=== PATIENT | female | born 1955 | race Two or more races ===

== ENCOUNTER 2020-05-05 08:46 | Outpatient (REF) | payer MEDICARE, MEDICAID, SELFPAY ==
--- NOTE | 2020-05-05 09:00 | MR_ITS ---
EXAMINATION: MR CERVICAL SPINE WITHOUT CONTRAST CLINICAL INFORMATION: Cervical radiculopathy. Spasm. COMPARISON: Cervical spine radiographs 06/15/2019. Cervical spine MRI 09/25/2016. TECHNIQUE: MRI of the cervical spine was obtained using routine sequences without contrast. FINDINGS: Alignment is normal. Vertebral body heights are preserved. No acute bone marrow signal changes. There is slight loss of intervertebral disc height and T2 signal intensity at multiple levels related to disc degeneration. The cervicomedullary junction is normal. Limited visualization of the posterior fossa reveals no abnormal finding. The occipital condyles and lateral C1 masses are intact. Atlantodental joint is normal. C1-C2 articular facets are unremarkable. At C2-C3 the annular contour is normal. No canal stenosis. Asymmetric degenerative arthrosis causes mild left neuroforaminal encroachment. At C3-C4 there is a slightly bulging disc. No canal stenosis. Uncovertebral joint spurring and facet degenerative change causes mild bilateral neuroforaminal encroachment. At C4-C5 there is a slightly bulging disc. No canal stenosis. Uncovertebral joint spurring and facet degenerative change causes mild left neuroforaminal encroachment. At C5-C6 there is a slightly bulging disc. No canal stenosis. Uncovertebral joint spurring and facet degenerative change causes mild left neuroforaminal encroachment. At C6-C7 there is a right central protrusion causing indentation of the thecal sac and subtle distortion of the right ventral surface of the cervical cord. Moderate canal stenosis. No overt compression and no abnormal intramedullary signal changes. No substantial neuroforaminal encroachment. At C7-T1 the annular contour is normal. No canal or neuroforaminal compromise. Visualized soft tissues of the neck are normal. MR/MR cervical spine wo con IMPRESSION: A right central protrusion at C6-C7 has substantially increased in size when compared to prior imaging from 09/25/2016. It causes moderate canal stenosis and subtle distortion of the right ventrolateral surface of the cervical cord. No clear evidence of abnormal intramedullary signal changes to suggest edema or myelomalacia. There is mild neuroforaminal encroachment at multiple levels within the cervical spine as described above.
== END 2020-05-05 08:47 | disposition home or self-care (01) ==
LOC: HO.MRI 08:46
PROVIDERS: PCP Internal Medicine; Visit Provider Internal Medicine
DX: M54.12 Radiculopathy, cervical region (principal); M62.838 Other muscle spasm; M96.1 Postlaminectomy syndrome, not elsewhere classified
CPT/HCPCS: 72141

== ENCOUNTER 2020-06-15 10:18 | Outpatient (REF) | payer MEDICARE, MEDICAID, SELFPAY ==
[2020-06-15 11:11] LABS: MANUAL DIFF FLAG NO
[2020-06-15 11:29] LABS: Basophils Percent Auto 0.4 % (0-2); Eosinophils Absolute Auto 0.2 X10*3/uL (0.0-0.4); Eosinophils Percent Auto 2.6 % (0-4); Hematocrit 40.9 % (37-47); Hemoglobin 13.1 g/dl (12.0-16.0); Imm Gran Abs Auto 0.03 X10*3/uL (0.00-0.03); Imm Gran Pct Auto 0.4 % (0.0-0.4); Lymphocytes Absolute Auto 2.5 X10*3/uL (1.2-4.9); Lymphocytes Percent Auto 35.8 % (20-40); Mean Corpuscular Hemoglobin 29.4 pg (27.0-33.0); Mean Corpuscular Volume 91.7 fL (80-98); Mean Platelet Volume 11.8 fL (9.4-12.3); Monocytes Absolute Auto 0.6 X10*3/uL (0.1-1.2); Neutrophils Absolute Auto 3.7 X10*3/uL (2.0-8.3); Neutrophils Percent Auto 52.8 % (45-73); Platelet Count 198 X10*3/uL (160-400); Red Blood Count 4.46 X10*6/uL (4.20-5.50); Red Cell Distribution Width 13.3 % (11.0-16.0)
[2020-06-15 11:32] LABS: Anion Gap 13 (12-20); Blood Urea Nitrogen 13 mg/dL (9-16); Calcium 9.7 mg/dL (8.4-10.2); Carbon Dioxide 32 mmol/L (22-29); Chloride 102 mmol/L (96-108); Cholesterol 265 mg/dL; Estimated Glomerular Filt Rate > 60; Glucose Fasting 125 mg/dL (60-99); HDL Cholesterol 52 mg/dL; LDL Cholesterol Calculated 169 mg/dl; Potassium 5.2 mmol/l (3.3-5.1); Sodium 142 mmol/L (135-145); Triglycerides 221 mg/dL
[2020-06-15 11:34] LABS: Alanine Aminotransferase 71 U/L (0-31); Albumin Level 4.1 g/dL (3.5-5.0); Alkaline Phosphatase 174 U/L (39-117); Aspartate Amino Transferase 65 U/L (5-31); Bilirubin Direct 0.2 mg/dL (0.0-0.5); Bilirubin Total 0.2 mg/dL (0.0-1.0); Total Protein 7.6 g/dL (6.5-8.0)
[2020-06-15 11:36] LABS: Estimated Average Glucose 174 mg/dL; Hemoglobin A1c % 7.7 %
[2020-06-15 12:18] LABS: Creatinine Urine 108.37 mg/dL; Microalbum/Creatinine Ratio Ur 4.6 ug/mg cr
== END 2020-06-15 10:19 | disposition home or self-care (01) ==
LOC: HO.LAB 10:18
PROVIDERS: Internal Medicine; PCP Psychiatry & Neurology Neurology; Referring Provider Psychiatry & Neurology Neurology; Visit Provider Internal Medicine
DX: I10 Essential (primary) hypertension (principal); K76.0 Fatty (change of) liver, not elsewhere classified; R74.8 Abnormal levels of other serum enzymes; M62.838 Other muscle spasm; M96.1 Postlaminectomy syndrome, not elsewhere classified; M47.894 Other spondylosis, thoracic region; M54.12 Radiculopathy, cervical region; K21.9 Gastro-esophageal reflux disease without esophagitis; R94.5 Abnormal results of liver function studies; E13.9 Other specified diabetes mellitus without complications
CPT/HCPCS: 36415; 80048; 80061; 80076; 82043; 83036; 85025

== ENCOUNTER 2020-07-15 08:28 | Outpatient (REF) | payer MEDICARE, MEDICAID, SELFPAY ==
[2020-07-15 11:07] LABS: MANUAL DIFF FLAG NO
[2020-07-15 11:14] LABS: Basophils Percent Auto 0.3 % (0-2); Eosinophils Absolute Auto 0.2 X10*3/uL (0.0-0.4); Eosinophils Percent Auto 1.8 % (0-4); Hematocrit 43.1 % (37-47); Hemoglobin 13.7 g/dl (12.0-16.0); Imm Gran Abs Auto 0.03 X10*3/uL (0.00-0.03); Imm Gran Pct Auto 0.3 % (0.0-0.4); Lymphocytes Absolute Auto 2.7 X10*3/uL (1.2-4.9); Lymphocytes Percent Auto 27.9 % (20-40); Mean Corpuscular HGB Conc 31.8 g/dl (31.0-35.0); Mean Corpuscular Hemoglobin 29.3 pg (27.0-33.0); Mean Corpuscular Volume 92.3 fL (80-98); Mean Platelet Volume 12.5 fL (9.4-12.3); Monocytes Absolute Auto 0.7 X10*3/uL (0.1-1.2); Monocytes Percent Auto 7.4 % (2-11); Neutrophils Absolute Auto 6.1 X10*3/uL (2.0-8.3); Neutrophils Percent Auto 62.3 % (45-73); Platelet Count 177 X10*3/uL (160-400); Red Blood Count 4.67 X10*6/uL (4.20-5.50); Red Cell Distribution Width 13.7 % (11.0-16.0); White Blood Count 9.8 X10*3/uL (4.8-10.8)
[2020-07-15 11:44] LABS: Anion Gap 13 (12-20); Blood Urea Nitrogen 17 mg/dL (9-16); Calcium 9.4 mg/dL (8.4-10.2); Carbon Dioxide 32 mmol/L (22-29); Chloride 101 mmol/L (96-108); Estimated Glomerular Filt Rate 52; Glucose Random 127 mg/dL (60-115); Potassium 4.8 mmol/l (3.3-5.1); Sodium 141 mmol/L (135-145)
== END 2020-07-15 08:29 | disposition home or self-care (01) ==
LOC: HO.HMGCLDS 08:28
PROVIDERS: PCP Internal Medicine; Visit Provider Internal Medicine
DX: Z01.818 Encounter for other preprocedural examination (principal); M50.20 Other cervical disc displacement, unspecified cervical region; I10 Essential (primary) hypertension; E13.9 Other specified diabetes mellitus without complications
CPT/HCPCS: 36415; 80048; 85025

== ENCOUNTER 2020-10-11 13:49 | Outpatient (REF) | payer MEDICARE, MEDICAID, SELFPAY ==
[2020-10-11 15:19] LABS: Alanine Aminotransferase 41 U/L (0-31); Albumin Level 4.2 g/dL (3.5-5.0); Alkaline Phosphatase 210 U/L (39-117); Aspartate Amino Transferase 48 U/L (5-31); Bilirubin Direct 0.2 mg/dL (0.0-0.5); Bilirubin Total 0.6 mg/dL (0.0-1.0); Total Protein 7.6 g/dL (6.5-8.0)
== END 2020-10-11 13:50 | disposition home or self-care (01) ==
LOC: HO.LAB 13:49
PROVIDERS: PCP Internal Medicine; Visit Provider Internal Medicine
DX: R74.8 Abnormal levels of other serum enzymes (principal)
CPT/HCPCS: 36415; 80076

== ENCOUNTER 2020-11-07 08:56 | Day surgery (SDC) | payer MEDICARE, MEDICAID, SELFPAY ==
[2020-11-02 13:55] VITALS: BMI 29.5
--- NOTE | 2020-11-03 13:42 | P.CONAN_ITS ---
Documented by User: Anne Esquivel 11/03/20 13:44 HPI - Anesthesia Eval Consult details Narrative: 64yo F for Colonoscopy chronic opioids - fentanyl patch and prn oxy PMFSH Active Problems Active Problems: All Active Problems (Updated 11/02/20 @ 13:51 by Angie Hui) Elevated blood pressure reading (Acute) Pre-op evaluation (Acute) Right otitis media (Acute) Pain management (Acute) Narcotic dependence (Acute) Herniated nucleus pulposus, cervical (Acute) Hypertension, essential (Acute) Muscle spasm (Acute) Failed back syndrome (Acute) DJD (degenerative joint disease) of thoracic spine (Acute) Radiculitis of right cervical region (Acute) Chronic GERD (Acute) LFTs abnormal (Acute) Diabetes 1.5, managed as type 1 (Acute) Past Medical History Medical History Chronic GERD Diabetes 1.5, 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 Mother Stomach cancer Surgical History Surgical History History of colonoscopy History of esophagogastroduodenoscopy History of esophagogastroduodenoscopy History of hysterectomy with oophorectomy History of lumbar surgery Hx of cholecystectomy Social History Social History Alcohol intake: never Smoking Status: Never smoker Advance Directives Information Provided: No Meds Allergies Allergy/AdvReac Type Severity Reaction Status Date / Time duloxetine [From Cymbalta] Allergy Intermediate Gastrointestinal Verified 11/02/20 13:43 Upset gabapentin Allergy Intermediate Gastrointestinal Verified 11/02/20 13:43 Upset milnacipran [From Savella] Allergy Intermediate Gastrointestinal Verified 11/02/20 13:43 Upset naloxegol [Movantik] Allergy Intermediate Gastrointestinal Verified 11/02/20 13:44 Upset pregabalin [From Lyrica] Allergy Intermediate Gastrointestinal Verified 11/02/20 13:43 Upset Home Medications Medication Instructions Recorded Confirmed Last Taken Type albuterol sulfate 90 mcg/actuation 1 - 2 puff PO Q4-6H PRN 04/29/20 11/02/20 Unknown History aerosol inhaler latanoprost 0.005 % eye drops 1 drp OPHTHALMIC (EYE) BEDTIME 04/29/20 11/02/20 Unknown History omeprazole 20 mg capsule,delayed 20 mg PO DAILY 04/29/20 11/02/20 11/07/20 Hist ory release pen needle, diabetic 31 gauge x #50 ea 04/29/20 10/11/20 Unknown History 09/20 Exam Exam Date and Time: November 03, 2020 1342 Height,Weight and Vital Signs: Height 5 ft 3 in Weight 75.75 kg Pertinent Lab Results Pertinent Lab Results: Laboratory Tests 07/15/20 07/15/20 08:33 08:33 WBC 9.8 Hgb 13.7 Hct 43.1 Plt Count 177 Sodium 141 Potassium 4.8 Chloride 101 Carbon Dioxide 32 H BUN 17 H Creatinine 1.06 Assessment and Plan Assessment Anesthesia Assessment: Chart Reviewed Documented by User: Feliz Roth 11/07/20 09:49 [facility] Past Medical History Medical History Chronic GERD Diabetes 1.5, 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 Mother Stomach cancer Surgical History Surgical History History of colonoscopy History of esophagogastroduodenoscopy History of esophagogastroduodenoscopy History of hysterectomy with oophorectomy History of lumbar surgery Hx of cholecystectomy Social History Social History Alcohol intake: never Smoking Status: Never smoker Advance Directives Information Provided: No Meds Allergies Allergy/AdvReac Type Severity Reaction Status Date / Time duloxetine [From Cymbalta] Allergy Intermediate Gastrointestinal Verified 11/02/20 13:43 Upset gabapentin Allergy Intermediate Gastrointestinal Verified 11/02/20 13:43 Upset milnacipran [From Savella] Allergy Intermediate Gastrointestinal Verified 11/02/20 13:43 Upset naloxegol [Movantik] Allergy Intermediate Gastrointestinal Verified 11/02/20 13:44 Upset pregabalin [From Lyrica] Allergy Intermediate Gastrointestinal Verified 11/02/20 13:43 Upset Home Medications Medication Instructions Recorded Confirmed Last Taken Type albuterol sulfate 90 mcg/actuation 1 - 2 puff PO Q4-6H PRN 04/29/20 11/02/20 Unknown History aerosol inhaler latanoprost 0.005 % eye drops 1 drp OPHTHALMIC (EYE) BEDTIME 04/29/20 11/02/20 Unknown History omeprazole 20 mg capsule,delayed 20 mg PO DAILY 04/29/20 11/02/20 11/07/20 History release pen needle, diabetic 31 gauge x #50 ea 04/29/20 10/11/20 Unknown History 09/20 Exam Airway Mallampati Class: II TM Dist: >3cm Neck ROM: Full Loose/Missing/Broken Teeth: No Heart: [id number] Lungs: cta b/l Assessment and Plan Assessment Anesthesia Assessment: Anesthesia Plan Discussed, PAT Visit and Chart Reviewed Final Anesthetic Review NPO: Yes ASA Class: III Final Preanesthetic Review: No Changes in Pt Med Stat, Meds/Allgs Chart Reviewed, Consent Obtained/Reviewed and Anes Risks/Benef Reviewed Patient Risk: Intermediate Procedure Risk: Low Assessment/Block/Sedation in SS: Assess/Block/Sedation-SS Anesthetic Plan Anesthetic Plan: MAC: and Agree w/ Assess. and Plan Disposition: Standard PACU
[2020-11-07 09:07] VITALS: BP 147/65; PULSE 92; RESP 18; TEMP 36.6; O2SAT 96
[2020-11-07 09:14] LABS: Glucose, Whole Blood 147 mg/dL (60-115)
[2020-11-07] MEDS: Lactated Ringers 1,000 ML 100 ML IVCONT (09:27)
[2020-11-07] MEDS: Sodium Phosphate,Mono-Dibasic 133 ML ENEMA PR ×2 (09:27→09:40)
--- NOTE | 2020-11-07 09:47 | PC.NURSE ---
liquid yellow after 2 fleets pt has a fentayl patch back right shoulder
[2020-11-07 11:18] VITALS: BP 91/52; PULSE 91; RESP 16; TEMP 36.8; O2SAT 96
--- NOTE | 2020-11-07 11:19 | PM.OP ---
Brief Operative Note Date of Service: 11/07/20 Pre-op diagnosis: Screening Post-op diagnosis: other (Colon polyp, Poor prep) Procedure: Colonoscopy to the cecum with biopsy and removal of polyp Surgeon: Tommy Roberts Anesthesia: MAC Estimated blood loss (mL): 3.0 Pathology: other (A. Cecal polyp) Condition: stable Disposition: PACU
[2020-11-07 11:33] VITALS: BP 113/57; PULSE 86; RESP 16; TEMP 36.8; O2SAT 96
--- NOTE | 2020-11-07 14:05 | OP_ITS ---
SURGEON: Tommy Roberts MD INDICATIONS: The patient presents for evaluation of colorectal cancer screening. Full consent has been obtained from her for this, including risks of bleeding and perforation. PREOPERATIVE DIAGNOSIS: Colorectal cancer screening. POSTOPERATIVE DIAGNOSIS: PROCEDURE PERFORMED: Colonoscopy to the cecum with biopsy and removal of polyp. ESTIMATED BLOOD LOSS: COMPLICATIONS: ANESTHESIA: Monitored anesthesia care. ASSISTANTS: SPECIMENS: POSTOPERATIVE DIAGNOSES: Colorectal cancer screening, small colon polyp, diverticulosis, internal hemorrhoids, and very limited exam due to poor prep. DESCRIPTION OF PROCEDURE: The patient was placed in the left lateral decubitus position. The digital rectal exam revealed no abnormalities other than some external hemorrhoids. The Olympus video pediatric colonoscope was entered into the rectum and advanced easily to the cecum. In the cecum, visualization was limited due to some poor prep with liquid and some solid stool. I did visualize a single approximately 4 mm polyp, which was biopsied and completely removed with cold biopsy forceps. I did not visualize any other abnormalities in the cecum, although again this was quite limited visualization. The scope was then slowly withdrawn assessing all mucosal surfaces carefully. Preparation throughout the colon was very limited as well due to retained liquid stool. I did not visualize any sign of polyps, colitis, nor angiodysplasia. Some sigmoid diverticula were noted. In the rectum, scope was retroflexed visualizing some small internal hemorrhoids, but no other pathology. The rectal mucosa was visualized and appeared normal. Scope was straightened out and withdrawn from the patient. She tolerated the procedure well and was returned to the recovery area in stable condition. IMPRESSION: 1. Small colon polyp, status post biopsy and removal. 2. Sigmoid diverticulosis. 3. Internal and external hemorrhoids. 4. Limited visualization due to poor prep. PLAN: The results of biopsy will be checked. I will discuss with her as to whether or not she would like to undergo a repeat colonoscopy with a better clean out for better inspection. If the polyp is a tubular adenoma, I would definitely recommend that. This has been discussed with her daughter. MD DES Rodriguez/TED / [id number]
== END 2020-11-07 12:08 | disposition home or self-care (01) ==
PROVIDERS: PCP Internal Medicine; Visit Provider Internal Medicine
PROC: 0DJD8ZZ Inspection of Lower Intestinal Tract, Via Natural or Artificial Opening Endoscopic (ICD-10-PCS; CPT 45378; principal; 2020-11-07 10:00)
DX: Z12.11 Encounter for screening for malignant neoplasm of colon (principal); D12.0 Benign neoplasm of cecum; K57.30 Diverticulosis of large intestine without perforation or abscess without bleeding; K64.8 Other hemorrhoids; K21.9 Gastro-esophageal reflux disease without esophagitis; I10 Essential (primary) hypertension; E13.9 Other specified diabetes mellitus without complications; Z79.4 Long term (current) use of insulin
CPT/HCPCS: 45380; 82947; 88305

== ENCOUNTER 2020-12-16 11:13 | Outpatient (REF) | payer MEDICARE, MEDICAID, SELFPAY ==
[2020-12-16 13:13] LABS: Estimated Average Glucose 183 mg/dL
[2020-12-16 13:37] LABS: Alanine Aminotransferase 34 U/L (0-31); Albumin Level 4.2 g/dL (3.5-5.0); Alkaline Phosphatase 204 U/L (39-117); Anion Gap 11 (12-20); Aspartate Amino Transferase 46 U/L (5-31); Bilirubin Total 0.5 mg/dL (0.0-1.0); Blood Urea Nitrogen 21 mg/dL (9-16); Calcium 9.3 mg/dL (8.4-10.2); Carbon Dioxide 32 mmol/L (22-29); Chloride 103 mmol/L (96-108); Cholesterol 263 mg/dL; Estimated Glomerular Filt Rate 54; Glucose Fasting 106 mg/dL (60-99); HDL Cholesterol 50 mg/dL; LDL Cholesterol Calculated 182 mg/dl; Potassium 5.2 mmol/L (3.3-5.1); Sodium 141 mmol/L (135-145); Total Protein 7.4 g/dL (6.5-8.0); Triglycerides 159 mg/dL
== END 2020-12-16 11:14 | disposition home or self-care (01) ==
LOC: HO.LAB 11:13
PROVIDERS: PCP Internal Medicine; Visit Provider Internal Medicine
DX: I10 Essential (primary) hypertension (principal); E13.9 Other specified diabetes mellitus without complications; R94.5 Abnormal results of liver function studies; Z79.4 Long term (current) use of insulin
CPT/HCPCS: 36415; 80053; 80061; 83036

== ENCOUNTER 2020-12-20 13:30 | Outpatient (REF) | payer MEDICARE, MEDICAID, SELFPAY ==
[2020-12-20 17:40] LABS: Influenza A PCR NEGATIVE (Negative); Influenza B PCR NEGATIVE (Negative); Resp Syncy Virus RNA Qual PCR NEGATIVE (Negative); SARS COV2 PCR INHOUSE NEGATIVE (Negative)
== END 2020-12-20 13:31 | disposition home or self-care (01) ==
LOC: HO.LAB 13:30
PROVIDERS: Visit Provider Nurse Practitioner Family
DX: Z20.822 Contact with and (suspected) exposure to COVID-19 (principal); J01.00 Acute maxillary sinusitis, unspecified
CPT/HCPCS: 0241U; 36415

== ENCOUNTER 2021-01-17 15:10 | Outpatient (REF) | payer MEDICARE, MEDICAID, SELFPAY ==
--- NOTE | ~2021-01-17 | XR_ITS ---
EXAMINATION: XR BILATERAL HIPS WITH AP PELVIS CLINICAL INFORMATION: Pain in right hip. COMPARISON: None TECHNIQUE: AP view of the pelvis and single views of each hip were obtained. FINDINGS: The bones and soft tissues are normal. No fracture. Sacroiliac and hip joints are normal. Pubic symphysis is normal. No abnormal soft tissue calcifications. Incidental finding of pedicular screws at L3 L4 L5 vertebra with interconnecting rods for lower spinal spine fusion is noted. XR/XR hips MAT min 3V IMPRESSION: Normal pelvis and hips.
== END 2021-01-17 15:11 | disposition home or self-care (01) ==
LOC: HO.HMGCX 15:10
PROVIDERS: PCP Internal Medicine; Visit Provider Internal Medicine
DX: M25.551 Pain in right hip (principal)
CPT/HCPCS: 73522

== ENCOUNTER 2021-01-23 07:35 | Outpatient (REF) | payer MEDICARE, MEDICAID, SELFPAY ==
--- NOTE | ~2021-01-23 | MR_ITS ---
MR LUMBAR SPINE WITHOUT CONTRAST CLINICAL INFORMATION: Postlaminectomy syndrome. COMPARISON: Images from a lumbar spine MRI dated 02/27/2013 are not available at the time of dictation. TECHNIQUE: MRI of the lumbar spine was obtained using routine sequences without contrast. FINDINGS: There is transitional anatomy. For the purposes of this report, there are 5 nonrib-bearing lumbar-type vertebral bodies and S1 is lumbarized, sharing a rudimentary disc with S2. There are chronic postoperative changes following laminectomy and posterior instrumented fusion at the L4-S1 levels. There is likely solid interbody arthrodesis at L4-L5 and L5-S1. The vertebral body heights are maintained. There is grade 1 degenerative anterolisthesis at the L3-L4 junctional level. There is no bone marrow edema. There are no acute fractures. The conus terminates at the T12-L1 level. L1-L2: Shallow left paracentral disc protrusion mildly indents the ventral thecal sac. No significant central canal stenosis nor significant foraminal stenosis. L2-L3: There is a shallow left paracentral disc protrusion that results in mass effect on the traversing left L3 nerve root within the left subarticular zone. The current annular disc bulge and mild bilateral facet arthropathy. No central canal stenosis. No foraminal stenosis. L3-L4: There is grade 1 degenerative anterolisthesis. Uncovered disc with a superimposed diffuse annular disc bulge. Severe bilateral facet arthropathy and ligamentum flavum thickening. On is in concert result in moderate central canal stenosis, bilateral subarticular zone stenosis with mass effect on the traversing L4 nerve roots bilaterally, and a left lateral disc osteophyte protrusion results in mass effect on the extraforaminal left L3 nerve root. L4-L5: Postoperative changes as discussed above. Narrowing of the subarticular zones bilaterally without traversing nerve root compression. No central canal stenosis and no foraminal stenosis. L5-S1: Postoperative changes as discussed above. Diffuse osteophytic ridging. Epidural lipomatosis mildly narrows the central canal. There is mild bilateral foraminal encroachment. MR/MR lumbar spine wo con IMPRESSION: - Transitional anatomy. S1 is lumbarized sharing a rudimentary disc with S2 and there are 5 nonrib-bearing lumbar-type vertebral bodies. - Chronic postoperative changes following laminectomy and posterior instrumented fusion at the L4-S1 levels. - At the junctional L3-L4 level, grade 1 degenerative anterolisthesis and multifactorial degenerative changes result in moderate central canal stenosis, bilateral subarticular zone stenosis with mass effect on the traversing L4 nerve roots bilaterally, and a left lateral disc osteophyte protrusion results in mass effect on the extraforaminal left L3 nerve root. - At L2-L3, a shallow left paracentral disc protrusion results in mass effect on the traversing left L3 nerve root within the left subarticular zone.
== END 2021-01-23 07:36 | disposition home or self-care (01) ==
LOC: HO.MRI 07:35
PROVIDERS: PCP Internal Medicine; Visit Provider Internal Medicine
DX: M54.17 Radiculopathy, lumbosacral region (principal); M96.1 Postlaminectomy syndrome, not elsewhere classified; M25.551 Pain in right hip
CPT/HCPCS: 72148

== ENCOUNTER → 2021-03-27 14:09 | Outpatient (BNVA) | payer MEDICARE, MEDICAID, SELFPAY | PROVIDERS: PCP Internal Medicine; Referring Provider Internal Medicine; Visit Provider Internal Medicine | DX: I10 Essential (primary) hypertension (principal); E78.5 Hyperlipidemia, unspecified; E10.9 Type 1 diabetes mellitus without complications; Z88.6 Allergy status to analgesic agent; Z88.8 Allergy status to other drugs, medicaments and biological substances; Z79.4 Long term (current) use of insulin | CPT/HCPCS: 93005; 99202 ==

== ENCOUNTER 2021-03-31 12:03 | Outpatient (REF) | payer MEDICARE, MEDICAID, SELFPAY ==
[2021-03-31 13:33] LABS: Alanine Aminotransferase 19 U/L (0-31); Albumin Level 4.1 g/dL (3.5-5.0); Alkaline Phosphatase 135 U/L (39-117); Anion Gap 12 (12-20); Aspartate Amino Transferase 21 U/L (5-31); Bilirubin Total 0.5 mg/dL (0.0-1.0); Blood Urea Nitrogen 13 mg/dL (9-16); Calcium 9.8 mg/dL (8.4-10.2); Carbon Dioxide 29 mmol/L (22-29); Chloride 103 mmol/L (96-108); Estimated Glomerular Filt Rate 57; Glucose Random 125 mg/dL (60-115); Potassium 4.9 mmol/L (3.3-5.1); Sodium 139 mmol/L (135-145); Total Protein 7.4 g/dL (6.5-8.0)
[2021-03-31 14:30] LABS: Amphetamine Screen Urine Not Detected (Not Detect); Barbiturates, Urine Not Detected (Not Detect); Benzodiazepines Screen Urine Not Detected (Not Detect); Cannabinoid Screen Urine Not Detected (Not Detect); Cocaine Screen Urine Not Detected (Not Detect); Fentanyl, urine POSITIVE (Not Detect); Opiate Screen Urine Not Detected (Not Detect); Phencyclidine Screen Urine Not Detected (Not Detect)
[2021-04-04 08:47] LABS: Codeine, Ur Negative
[2021-04-04 08:48] LABS: Hydrocodone, Ur Negative; Morphine, Ur Negative
[2021-04-04 08:49] LABS: Hydromorphone, Ur Negative; Norhydrocodone, Ur Negative
== END 2021-03-31 12:04 | disposition home or self-care (01) ==
LOC: HO.LAB 12:03
PROVIDERS: PCP Internal Medicine; Visit Provider Internal Medicine
DX: F11.20 Opioid dependence, uncomplicated (principal); E13.9 Other specified diabetes mellitus without complications; E78.9 Disorder of lipoprotein metabolism, unspecified; I10 Essential (primary) hypertension; M96.1 Postlaminectomy syndrome, not elsewhere classified; Z79.4 Long term (current) use of insulin
CPT/HCPCS: 80053; 80307; 80364; 80365

== ENCOUNTER 2021-08-15 10:05 | Outpatient (REF) | payer MEDICARE, MEDICAID, SELFPAY ==
[2021-08-15 11:32] LABS: Estimated Average Glucose 177 mg/dL; Hemoglobin A1c % 7.8 %
[2021-08-15 12:15] LABS: Alanine Aminotransferase 30 U/L (0-31); Albumin Level 4.1 g/dL (3.5-5.0); Alkaline Phosphatase 182 U/L (39-117); Anion Gap 13 (12-20); Aspartate Amino Transferase 30 U/L (5-31); Bilirubin Direct 0.2 mg/dL (0.0-0.5); Bilirubin Total 0.7 mg/dL (0.0-1.0); Blood Urea Nitrogen 14 mg/dL (9-16); Calcium 9.9 mg/dL (8.4-10.2); Carbon Dioxide 31 mmol/L (22-29); Chloride 102 mmol/L (96-108); Cholesterol 264 mg/dL; Estimated Glomerular Filt Rate > 60; Glucose Fasting 103 mg/dL (60-99); HDL Cholesterol 47 mg/dL; LDL Cholesterol Calculated 179 mg/dl; Sodium 141 mmol/L (135-145); Total Protein 7.7 g/dL (6.5-8.0); Triglycerides 190 mg/dL
[2021-08-15 12:16] LABS: Creatinine Urine 152.51 mg/dL; Microalbum/Creatinine Ratio Ur 3.2 ug/mg cr
== END 2021-08-15 10:06 | disposition home or self-care (01) ==
LOC: HO.LAB 10:05
PROVIDERS: PCP Internal Medicine; Visit Provider Internal Medicine
DX: E78.5 Hyperlipidemia, unspecified (principal); I10 Essential (primary) hypertension; E78.9 Disorder of lipoprotein metabolism, unspecified; M48.061 Spinal stenosis, lumbar region without neurogenic claudication; Z79.4 Long term (current) use of insulin
CPT/HCPCS: 36415; 80053; 80061; 80076; 82043; 82248; 83036

== ENCOUNTER 2021-10-11 13:46 | Outpatient (REF) | payer MEDICARE, MEDICAID, SELFPAY ==
[2021-10-11 14:36] LABS: Amphetamine Screen Urine Not Detected (Not Detect); Barbiturates, Urine Not Detected (Not Detect); Benzodiazepines Screen Urine Not Detected (Not Detect); Cannabinoid Screen Urine Not Detected (Not Detect); Cocaine Screen Urine Not Detected (Not Detect); Fentanyl, urine POSITIVE (Not Detect); Opiate Screen Urine Not Detected (Not Detect); Phencyclidine Screen Urine Not Detected (Not Detect)
== END 2021-10-11 13:47 | disposition home or self-care (01) ==
LOC: HO.LNP 13:46
PROVIDERS: Visit Provider Internal Medicine
DX: F11.20 Opioid dependence, uncomplicated (principal); R52 Pain, unspecified
CPT/HCPCS: 80307

== ENCOUNTER 2021-12-13 14:32 | Outpatient (REF) | payer MEDICARE, MEDICAID, SELFPAY ==
[2021-12-13 16:57] LABS: Alanine Aminotransferase 23 U/L (0-31); Albumin Level 4.4 g/dL (3.5-5.0); Alkaline Phosphatase 148 U/L (39-117); Anion Gap 13 (12-20); Aspartate Amino Transferase 21 U/L (5-31); Bilirubin Total 0.2 mg/dL (0.0-1.0); Blood Urea Nitrogen 20 mg/dL (9-16); Calcium 9.9 mg/dL (8.4-10.2); Carbon Dioxide 29 mmol/L (22-29); Chloride 104 mmol/L (96-108); Estimated Glomerular Filt Rate 41; Glucose Random 210 mg/dL (60-115); Potassium 4.7 mmol/L (3.3-5.1); Sodium 141 mmol/L (135-145)
[2021-12-13 17:53] LABS: Estimated Average Glucose 186 mg/dL; Hemoglobin A1c % 8.1 %
== END 2021-12-13 14:33 | disposition home or self-care (01) ==
LOC: HO.HMGCLDS 14:32
PROVIDERS: PCP Internal Medicine; Visit Provider Internal Medicine
DX: E78.5 Hyperlipidemia, unspecified (principal); E13.9 Other specified diabetes mellitus without complications; I10 Essential (primary) hypertension; R94.5 Abnormal results of liver function studies; Z79.4 Long term (current) use of insulin
CPT/HCPCS: 36415; 80053; 83036

== ENCOUNTER → 2022-05-10 07:54 | Outpatient (REF) | payer MEDICARE, MEDICAID, SELFPAY ==
--- NOTE | ~2022-05-10 | NM_ITS ---
EXAMINATION: MA RADIONUCLIDE SOLID FOOD GASTRIC EMPTYING 4-HOUR STUDY CLINICAL INFORMATION: Early satiety. COMPARISON: None TECHNIQUE: A standard meal consisting of 4 oz of Egg Beaters brand tagged with 1000 microcuries Tc-99m Sulfur Colloid, 8 oz water and 2 slices of toast with jelly was administered orally to the patient. Images were obtained using a dual head gamma camera in the anterior and posterior projections over of the stomach immediately post ingestion and at hourly intervals up to 4 hours post ingestion. The anterior and posterior counts at each time interval were averaged using the geometric mean and expressed as percentage of the immediate post ingestion counts. FINDINGS: There is good visualization of activity in the stomach immediately post ingestion. As the study progresses, there is good clearance of activity from the stomach and visualization of progressively increasing small bowel activity. By the end of the study, there is almost no retention noted in the stomach. Retention in the stomach at each time interval was: 1 hour 62% (normal 37%-90%) 2 hours 36% (normal 30%-60%) 3 hours 23% 4 hours 7% (normal 0%-10%) MA/MA gastric emptying study IMPRESSION: Normal 4-hour solid food gastric emptying study.
== END ==
LOC: HO.NUCMED 07:54
PROVIDERS: PCP Internal Medicine; Visit Provider Internal Medicine
DX: R68.81 Early satiety (principal)
CPT/HCPCS: 78264; A9541

== ENCOUNTER 2022-08-16 10:27 | Outpatient (REF) | payer MEDICARE, MEDICAID, SELFPAY ==
[2022-08-16 10:45] LABS: MANUAL DIFF FLAG NO
[2022-08-16 12:25] LABS: Basophils Absolute Auto 0.1 X10*3/uL (0.0-0.2); Basophils Percent Auto 0.9 % (0-2); Eosinophils Absolute Auto 0.2 X10*3/uL (0.0-0.4); Eosinophils Percent Auto 3.2 % (0-4); Hemoglobin 13.9 g/dl (12.0-16.0); Imm Gran Abs Auto 0.03 X10*3/uL (0.00-0.03); Imm Gran Pct Auto 0.4 % (0.0-0.4); Lymphocytes Absolute Auto 1.7 X10*3/uL (1.2-4.9); Lymphocytes Percent Auto 23.1 % (20-40); Mean Corpuscular HGB Conc 32.3 g/dl (31.0-35.0); Mean Corpuscular Volume 89.8 fL (80.0-98.0); Mean Platelet Volume 12.4 fL (9.4-12.3); Monocytes Absolute Auto 0.5 X10*3/uL (0.1-1.2); Monocytes Percent Auto 7.3 % (2-11); Neutrophils Absolute Auto 4.8 x10*3/uL (2.0-8.3); Neutrophils Percent Auto 65.1 % (45-73); Platelet Count 185 X10*3/uL (160-400); Red Blood Count 4.79 X10*6/uL (4.20-5.50); Red Cell Distribution Width 13.5 % (11.0-16.0); White Blood Count 7.4 X10*3/uL (4.8-10.8)
[2022-08-16 12:53] LABS: Estimated Average Glucose 189 mg/dL; Hemoglobin A1c % 8.2 %
[2022-08-16 12:58] LABS: Alanine Aminotransferase 39 U/L (0-31); Albumin Level 4.3 g/dL (3.5-5.0); Alkaline Phosphatase 186 U/L (39-117); Anion Gap 15 (12-20); Aspartate Amino Transferase 39 U/L (5-31); Bilirubin Total 0.7 mg/dL (0.0-1.0); Blood Urea Nitrogen 18 mg/dL (9-16); Calcium 10.1 mg/dL (8.4-10.2); Carbon Dioxide 30 mmol/L (22-29); Chloride 103 mmol/L (96-108); Cholesterol 272 mg/dL; Estimated Glomerular Filt Rate > 60; Glucose Fasting 110 mg/dL (60-99); HDL Cholesterol 58 mg/dL; LDL Cholesterol Calculated 191 mg/dl; Sodium 143 mmol/L (135-145); Total Protein 7.7 g/dL (6.5-8.0); Triglycerides 115 mg/dL
[2022-08-16 14:20] LABS: Amphetamine Screen Urine Not Detected (Not Detect); Barbiturates, Urine Not Detected (Not Detect); Benzodiazepines Screen Urine Not Detected (Not Detect); Cannabinoid Screen Urine Not Detected (Not Detect); Cocaine Screen Urine Not Detected (Not Detect); Fentanyl, urine POSITIVE (Not Detect); Opiate Screen Urine Not Detected (Not Detect); Phencyclidine Screen Urine Not Detected (Not Detect)
[2022-08-28 09:40] LABS: Codeine, Ur NEGATIVE; Hydrocodone, Ur NEGATIVE; Hydromorphone, Ur NEGATIVE; Morphine, Ur NEGATIVE; Norhydrocodone, Ur NEGATIVE; Noroxycodone, Ur NEGATIVE; Oxycodone, Ur NEGATIVE; Oxymorphone, Ur NEGATIVE
== END 2022-08-16 10:28 | disposition home or self-care (01) ==
LOC: HO.LAB 10:27
PROVIDERS: PCP Internal Medicine; Visit Provider Internal Medicine
DX: E13.9 Other specified diabetes mellitus without complications (principal); R94.5 Abnormal results of liver function studies; K21.9 Gastro-esophageal reflux disease without esophagitis; M47.894 Other spondylosis, thoracic region; M96.1 Postlaminectomy syndrome, not elsewhere classified; I10 Essential (primary) hypertension; M50.20 Other cervical disc displacement, unspecified cervical region; E78.9 Disorder of lipoprotein metabolism, unspecified; M48.061 Spinal stenosis, lumbar region without neurogenic claudication; R52 Pain, unspecified; F11.20 Opioid dependence, uncomplicated
CPT/HCPCS: 80053; 80061; 80307; 80364; 80365; 82043; 83036; 85025

== ENCOUNTER 2022-11-19 13:08 | Emergency (ER) | payer MEDICARE, MEDICAID, SELFPAY ==
--- NOTE | ~2022-11-19 | XR_ITS ---
EXAMINATION: XR HAND, RIGHT CLINICAL INFORMATION: Laceration of the right fifth finger. COMPARISON: None available. TECHNIQUE: PA, lateral, and oblique views of the right hand. FINDINGS: There is soft tissue swelling at the small finger with subcutaneous gas. A osseous defect is suspected in the palmar/radial margin of the proximal phalangeal base without appreciable articular surface involvement. No radiodense foreign bodies are identified. No additional fractures are identified. Alignment is appropriate. 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 More mild osteoarthritis in the PIP joints. More mild osteoarthritis is evident in the wrist. No erosions. Carpal boss is noted. XR/XR hand RT 2V IMPRESSION: Soft tissue swelling and subcutaneous gas at the small finger with a nondisplaced fracture at the base of the small finger proximal phalanx. No radiodense foreign bodies.
--- NOTE | 2022-11-19 13:12 | ED_ITS ---
HPI - Extremity Injury (Upper) General Chief Complaint: Wound/Laceration <Adrianna Siddiqui NP - Last Filed: 11/19/22 13:15> Stated Complaint: Finger lac <Adrianna Siddiqui NP - Last Filed: 11/19/22 13:15> Time Seen by Provider: 11/19/22 13:18 <Adrianna Siddiqui NP - Last Filed: 11/19/22 13:15> Source: patient and family (daughter) <DAIANA Matos - Last Filed: 11/19/22 16:42> Mode of arrival: ambulatory <DAIANA Matos - Last Filed: 11/19/22 16:42> Limitations: no limitations <DAIANA Matos - Last Filed: 11/19/22 16:42> History of Present Illness HPI narrative: Patient is a 66 year old assigned female at with a history of DM and HTN presenting to the emergency department today with a right hand injury. Patient states that she was using a chainsaw when it kicked back and hit her between her right 5th and 4th and fingers. Patient states that she has some numbness on the radial aspect of her right 5th finger but is able to move it. Patient denies any dizziness, lightheadedness, abdominal pain, nausea, vomiting, fever, chills, blurry vision, double vision, loss of vision, chest pain, difficulty breathing, shortness of breath, back pain, night sweats, pain with urination, increased urinary frequency, increased urinary urgency, blood in her urine or stool, syncope or a near syncopal episode, bowel incontinence, bladder incontinence, bowel retention, bladder retention, or any other complaints at this time. <DAIANA Matos - Last Filed: 11/19/22 16:42> MD complaint: injury to: right and hand <DAIANA Matos Last Filed: 11/19/22 16:42> Onset (ago): minute(s) <DAIANA Matos - Last Filed: 11/19/22 16:42> Place: home <DAIANA Matos Last Filed: 11/19/22 16:42> Severity: moderate <DAIANA Matos Last Filed: 11/19/22 16:42> Severity scale (1-10): 5 <DAIANA Matos - Last Filed: 11/19/22 16:42> Relieving factors: none <DAIANA Matos - Last Filed: 11/19/22 16:42> Exacerbating factors: movement of extremity <DAIANA Matos - Last Filed: 11/19/22 16:42> Context: direct blow and laceration <DAIANA Matos - Last Filed: 11/19/22 16:42> Associated symptoms: denies other symptoms <DAIANA Matos - Last Filed: 11/19/22 16:42> Related Data Home Medications: Home Medications Medication Instructions Recorded Confirmed latanoprost 0.005 % eye drops 1 drp ophthalmic (eye) BEDTIME 04/29/20 11/09/22 omeprazole 20 mg capsule,delayed 20 mg PO DAILY heartburn 04/29/20 11/09/22 release dicyclomine 10 mg capsule 10 - 20 mg PO Q6H PRN cramps 12/20/20 11/09/22 Previous Rx's Medication Instructions Recorded blood-glucose meter (FreeStyle #1 ea 01/04/21 Lite Meter kit) lancets 28 gauge (FreeStyle #100 ea 01/04/21 Lancets) blood sugar diagnostic (OneTouch #100 ea 01/19/21 Ultra Blue Test Strip) blood-glucose meter (OneTouch #1 ea 01/19/21 Ultra2 Meter) blood sugar diagnostic (FreeStyle #100 ea 03/28/21 Lite Strips) insulin glargine 100 unit/mL (3 30 unit (0.3 mL) subcut ONCE 90 03/23/22 mL) subcutaneous pen (Lantus #27 mL Solostar U-100 Insulin) famotidine 40 mg tablet 40 mg PO BEDTIME #90 tabs 04/13/22 albuterol sulfate 90 mcg/actuation 1 - 2 puff PO Q4-6H PRN 06/08/22 aerosol inhaler respiratory symptoms 30 days #8.5 grams pen needle, diabetic 31 gauge x #100 ea 06/08/22 3/16 amlodipine 10 mg tablet 10 mg PO DAILY 90 days #90 tabs 08/31/22 mometasone-formoterol HFA 200 2 puff inhalation BID #8.8 grams 08/31/22 mcg-5 mcg/actuation aerosol inhaler (Dulera) lisinopril 40 mg tablet 40 mg PO DAILY 90 days #90 tabs 09/05/22 ondansetron HCl 4 mg tablet 4 mg PO ONCE PRN nausea and 09/26/22 vomiting 90 days #90 tabs fentanyl 50 mcg/hr transdermal 1 patch transdermal Q48H 30 days 11/09/22 patch #15 ea tizanidine 4 mg tablet 4 mg PO BEDTIME PRN for muscle 11/09/22 spasm 90 days #90 tabs amoxicillin 875 mg-potassium 1 tab PO BID 7 days #14 tabs 11/19/22 clavulanate 125 mg tablet <Adrianna Siddiqui NP - Last Filed: 11/19/22 13:15> Allergies/Adverse Reactions: Allergies Allergy/AdvReac Type Severity Reaction Status Date / Time duloxetine [From Cymbalta] Allergy Intermediate Gastrointestinal Verified 11/19/22 13:13 Upset gabapentin Allergy Intermediate Gastrointestinal Verified 11/19/22 13:13 Upset milnacipran [From Savella] Allergy Intermediate Gastrointestinal Verified 11/19/22 13:13 Upset naloxegol [Movantik] Allergy Intermediate Gastrointestinal Verified 11/19/22 13:13 Upset pregabalin [From Lyrica] Allergy Intermediate Gastrointestinal Verified 11/19/22 13:13 Upset <Adrianna Siddiqui NP - Last Filed: 11/19/22 13:15> Review of Systems Constitutional: Constitutional: Reports no additional constitutional complaints, Denies chills, Denies fever(s) and Denies night sweats <DAIANA Matos - Last Filed: 11/19/22 16:42> Eyes: Eyes: Reports no additional eye complaints, Denies blurry vision, Denies change in vision, Denies diplopia, Denies eye discharge, Denies loss of vision and Denies eye pain <DAIANA Matos Last Filed: 11/19/22 16:42> ENT: Denies dizziness <DAIANA Matos Last Filed: 11/19/22 16:42> Cardiovascular: Cardiovascular: Reports no additional cardiovascular complaints, Denies chest pain, Denies lightheadedness, Denies Loss of Consciousness and Denies dyspnea <DAIANA Matos - Last Filed: 11/19/22 16:42> Respiratory: Respiratory: Reports no additional respiratory complaints and Denies dyspnea <DAIANA Matos - Last Filed: 11/19/22 16:42> Gastrointestinal: Gastrointestinal: Reports no additional gastrointestinal complaints, Denies abdominal pain, Denies melena, Denies hematochezia, Denies change in bowel habits and Denies change in stool character <DAIANA Matos - Last Filed: 11/19/22 16:42> Genitourinary: Genitourinary: Denies hematuria, Denies urinary frequency, Denies dysuria, Denies urinary incontinence, Denies urinary hesitancy and Denies urinary urgency <DAIANA Matos - Last Filed: 11/19/22 16:42> Musculoskeletal: Musculoskeletal: Reports no additional musculoskeletal complaints, Denies numbness and Denies tingling <DAIANA Matos - Last Filed: 11/19/22 16:42> Comments: right hand laceration <DAIANA Matos - Last Filed: 11/19/22 16:42> Neurologic: Denies dizziness, Denies loss of vision, Denies numbness and Denies tingling <DAIANA Matos - Last Filed: 11/19/22 16:42> Psychiatric: Psychiatric: Reports no additional psychiatric complaints <DAIANA Matos - Last Filed: 11/19/22 16:42> Endocrine: Endocrine: Reports no additional endocrine complaints <DAIANA Matos - Last Filed: 11/19/22 16:42> Hematologic/Lymphatic: Hematologic/Lymphatic: Reports no additional hematologic/lymphatic complaints <DAIANA Matso - Last Filed: 11/19/22 16:42> Allergic/Immunologic: Allergic/Immunologic: Reports no additional allergic/immunologic complaints <DAIANA Matos Last Filed: 11/19/22 16:42> PMFSH Past Medical History Attestation statement: The following information was validated with the patient. 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 Failed back syndrome Herniated nucleus pulposus, cervical Hx of irritable bowel syndrome Hypertension, essential LFTs abnormal Muscle spasm Narcotic dependence Pain management Radiculitis of right cervical region <Adrianna Siddiqui NP - Last Filed: 11/19/22 13:15> Surgical History: Surgical History History of colonoscopy History of esophagogastroduodenoscopy History of esophagogastroduodenoscopy History of hysterectomy with oophorectomy History of lumbar surgery Hx of cholecystectomy <Adrianna Siddiqui NP - Last Filed: 11/19/22 13:15> Family History Family History: Family History Father No problems noted. Mother Stomach cancer <Adrianna Siddiqui NP - Last Filed: 11/19/22 13:15> Social History Social History: Social History Housing: House Alcohol intake: never Patient Tobacco Use Status: Never used Tobacco e-Cigarette/Vaping Use: Never Used Advance Directives: No Advance Directives Information Provided: Yes service: No Current occupational status: disabled Cognitive needs: No Hearing needs: No Vision needs: Yes <Adrianna Siddiqui NP - Last Filed: 11/19/22 13:15> Physical Exam Vital Signs: Vital Signs: Last Vital Signs Temp 97.9 F 11/19/22 13:13 Pulse 106 H 11/19/22 13:13 Resp 18 11/19/22 13:13 BP 162/78 H 11/19/22 13:13 Pulse Ox 96 11/19/22 13:13 O2 Del Method Room Air 11/19/22 13:13 BMI result Body Mass Index 28.9 <Adrianna Siddiqui NP - Last Filed: 11/19/22 13:15> Vital Signs: Last Vital Signs Temp 97.9 F 11/19/22 13:13 Pulse 106 H 11/19/22 13:13 Resp 18 11/19/22 13:13 BP 162/78 H 11/19/22 13:13 Pulse Ox 96 11/19/22 13:13 O2 Del Method Room Air 11/19/22 13:13 BMI result Body Mass Index 28.9 <DAIANA Matos - Last Filed: 11/19/22 16:42> Const: General: cooperative, no acute distress, alert and awake <Tierra Cazares PA - Last Filed: 11/19/22 16:42> Nutritional Appearance: well nourished <Tierra Cazares PA - Last Filed: 11/19/22 16:42> Orientation/consciousness: patient oriented x3 <DAIANA Matos - Last Filed: 11/19/22 16:42> Limitations: no limitations <Tierra Cazares PA - Last Filed: 11/19/22 16:42> HEENT: Head: Yes normal to inspection and Yes atraumatic <Tierra Cazares PA - Last Filed: 11/19/22 16:42> Ears: hearing grossly normal bilaterally and external ears normal <Tierra Cazares PA - Last Filed: 11/19/22 16:42> General nose exam: Normal external nose present, no nasal discharge noted and no epistaxis <Tierra Cazares PA - Last Filed: 11/19/22 16:42> Face and sinus: Yes normal facial exam, No abrasion and No laceration <Tierra Cazares PA - Last Filed: 11/19/22 16:42> Mouth: Normal oral and palatal mucosa present, no drooling and no muffled voice <Tierra Cazares PA - Last Filed: 11/19/22 16:42> Eyes: General: appearance normal, both eyes and all related structures <DAIANA Matos - Last Filed: 11/19/22 16:42> Periorbital: periorbital findings normal <Tierra Cazares PA - Last Filed: 11/19/22 16:42> Eyelids: Yes eyelids normal <Tierra Cazares PA - Last Filed: 11/19/22 16:42> Conjunctivae: conjunctivae normal <Tierra Cazares PA - Last Filed: 11/19/22 16:42> Pupils: Equal, round and reactive pupils present <Tierra Cazares PA - Last Filed: 11/19/22 16:42> EOM: EOMs intact bilaterally <Tierra Cazares PA - Last Filed: 11/19/22 16:42> Neck: Neck: Yes normal visual inspection, Yes full ROM and Yes no lymphadenopathy <Tierra Cazares PA - Last Filed: 11/19/22 16:42> Chest: Chest palpation & inspection: normal inspection of the chest <Tierra Cazares PA - Last Filed: 11/19/22 16:42> Resp: Effort & Inspection: normal respiratory effort and able to speak in complete sentences <Tierra Cazares PA - Last Filed: 11/19/22 16:42> GI: Inspection: Yes normal to inspection <Tierra Cazares PA - Last Filed: 11/19/22 16:42> Neuro: General: patient oriented x3 and moves all extremities <Tierra Cazares PA - Last Filed: 11/19/22 16:42> Cranial nerves: Yes Equal, round and reactive pupils present <Tierra Cazares PA - Last Filed: 11/19/22 16:42> Cognition (Neuro): normal cognition <Tierra Cazares PA - Last Filed: 11/19/22 16:42> Motor exam (neuro): 5/5 motor strength present throughout <Tierra Cazares PA - Last Filed: 11/19/22 16:42> Sensory Exam: Normal double simultaneous stimulation for sensation <Tierra Cazares PA - Last Filed: 11/19/22 16:42> Coordination: [id number] test normal <Tierra Cazares PA - Last Filed: 11/19/22 16:42> Extrem: Other: patient has an approximately 5cm, gaping laceration in the web space between the right 4th and 5th digits - no active bleeding. Decreased sensation along the radial aspect of the right 5th finger. <Tierra Cazares PA - Last Filed: 11/19/22 16:42> General: Yes full ROM and Yes capillary refill normal <Tierra Cazares PA - Last Filed: 11/19/22 16:42> Psych: Appearance: grossly normal <Tierra Cazares PA - Last Filed: 11/19/22 16:42> Mental Status: mental status grossly normal <DAIANA Matos - Last Filed: 11/19/22 16:42> Affect: normal affect <DAIANA Matos - Last Filed: 11/19/22 16:42> Attitude: cooperative <DAIANA Matos - Last Filed: 11/19/22 16:42> Thought process: Normal thought process present <DAIANA Matos - Last Filed: 11/19/22 16:42> Thought content: Normal thought content present <DAIANA Matos - Last Filed: 11/19/22 16:42> Insight: Good insight present (Psych) <DAIANA Matos - Last Filed: 11/19/22 16:42> Course Course Course Narrative: This is a rapid medical exam. Deferred additional HPI, ROS, PE to primary provider. 66 yo female with history of DM, HTN, HLD, fibromyalgia, asthma here with laceration to right hand 5th digit from chain saw kicking back. Tetanus status is unknown To the base of the right 5th digit there is a laceration approximately 6 cm along the medial aspect Will check x-rays, update tetanus <Adrianna Siddiqui NP - Last Filed: 11/19/22 13:15> Medications Administered Discontinued Medications Generic Name Dose Route Start Last Admin Trade Name Freq PRN Reason Stop Dose Admin Amoxicillin/Clavulanate Potassium 875 mg 11/19/22 15:45 11/19/22 15:51 Amoxicillin/Potassium Clav 875 Mg Tablet PO 11/19/22 15:46 875 mg ONCE ONE Administration Diphtheria/Tetanus/Acell Pertussis 0.5 ml 11/19/22 13:14 11/19/22 13:49 Diphth,Pertus(Acell),Tet Adult 0.5 Ml Syringe IM 11/19/22 13:15 0.5 ml .ONCE ONE Administration Lidocaine HCl 15 ml 11/19/22 14:41 11/19/22 15:26 Lidocaine Hcl 1 % Mpf 5 Ml Vial SUBCUT 11/19/22 14:42 15 ml ONCE ONE Administration <Adrianna Siddiqui NP - Last Filed: 11/19/22 13:15> Medications Administered Discontinued Medications Generic Name Dose Route Start Last Admin Trade Name Freq PRN Reason Stop Dose Admin Amoxicillin/Clavulanate Potassium 875 mg 11/19/22 15:45 11/19/22 15:51 Amoxicillin/Potassium Clav 875 Mg Tablet PO 11/19/22 15:46 875 mg ONCE ONE Administration Diphtheria/Tetanus/Acell Pertussis 0.5 ml 11/19/22 13:14 11/19/22 13:49 Diphth,Pertus(Acell),Tet Adult 0.5 Ml Syringe IM 11/19/22 13:15 0.5 ml .ONCE ONE Administration Lidocaine HCl 15 ml 11/19/22 14:41 11/19/22 15:26 Lidocaine Hcl 1 % Mpf 5 Ml Vial SUBCUT 11/19/22 14:42 15 ml ONCE ONE Administration <DAIANA Matos - Last Filed: 11/19/22 16:42> Medical Decision Making Medical Decision Making MDM Narrative: Patient is a 66 year old assigned female at with a history of DM and HTN presenting to the emergency department today with a right hand laceration. Patient's physical exam was as described in the physical exam portion of this chart. Patient's right hand x-ray showed a non-displaced fracture of the 5th finger proximal phalanx. I spoke to the orthopedic surgeon site acquisition specialist who recommended oral ABX, irrigation, loose approximation of the wound, and placing the patient in an ulnar gutter splint with f/u in the office. I explained my physical exam findings as well as all test results to the patient and the patient's daughter. I answered all questions asked by the patient and the patient's daughter. Patient laceration was thoroughly cleaned and loosely approximated, without incident. Patient's hand was placed in an ulnar gutter splint, without incident. Patient's PMS was unchanged post splinting from prior splinting. I stressed the importance of the patient taking her medication as prescribed. I stressed the importance of the patient following up with her primary care provider and an senior analysis specialist. I stressed the importance of the patient returning to the emergency department immediately if her symptoms were to worsen or if she were to develop any dizziness, shortness of breath, difficulty breathing, chest pain, blurry vision, loss of vision, nausea, vomiting, abdominal pain, fever, chills, back pain, or any other complaints. Patient verbalized agreement and understanding with this treatment plan and discharge. <DAIANA Matos - Last Filed: 11/19/22 16:42> Differential Diagnosis Differential Diagnoses: The differential diagnosis associated with the presentation includes <DAIANA Matos Last Filed: 11/19/22 16:42> open fracture, laceration <DAIANA Matos - Last Filed: 11/19/22 16:42> Consult Healthcare Provider Management of the patient was discussed with: Transport Operations Inspector (spoke to the orthopedist site acquisition specialist per MDM portion of this chart) <DAIANA Matos - Last Filed: 11/19/22 16:42> Independent Interpretation I performed an independent interpretation of an: Plain X-Ray <DAIANA Matos Last Filed: 11/19/22 16:42> Interpretation: My interpretation is in agreement with the radiologist's impression of this imaging study. EXAMINATION: XR HAND, RIGHT CLINICAL INFORMATION: Laceration of the right fifth finger.? COMPARISON: None available.? TECHNIQUE: PA, lateral, and oblique views of the right hand. FINDINGS: There is soft tissue swelling at the small finger with subcutaneous gas. A osseous defect is suspected in the palmar/radial margin of the proximal phalangeal base without appreciable articular surface involvement. No radiodense foreign bodies are identified. No additional fractures are identified. Alignment is appropriate. 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 More mild osteoarthritis in the PIP joints. More mild osteoarthritis is evident in the wrist. No erosions. Carpal boss is noted. XR/XR hand RT 2V IMPRESSION: Soft tissue swelling and subcutaneous gas at the small finger with a nondisplaced fracture at the base of the small finger proximal phalanx. No radiodense foreign bodies. Dictated By: N Signed By: Electronically signed by N 11/19/22 1507 <DAIANA Matos Last Filed: 11/19/22 16:42> Prescription Management I considered prescription management with: Pain Medication <DAIANA Matos Last Filed: 11/19/22 16:42> Patient was offered pain medication numerous times throughout her time in the department and she repeatedly declined. <DAIANA Matos Last Filed: 11/19/22 16:42> Chronic Conditions Patient?s care impacted by: Diabetes and Hypertension <DAIANA Matos Last Filed: 11/19/22 16:42> Procedures Laceration Laceration 1: Site: hand <DAIANA Matos Last Filed: 11/19/22 16:42> Side (If applicable): right <DAIANA Matos - Last Filed: 11/19/22 16:42> Size (cm): 5 <DAIANA Matos - Last Filed: 11/19/22 16:42> Description: irregular and contaminated <DAIANA Matos - Last Filed: 11/19/22 16:42> Depth: involves muscle layer <DAIANA Matos - Last Filed: 11/19/22 16:42> Local Anesthetic: lidocaine 1% <DAIANA Matos - Last Filed: 11/19/22 16:42> Amount of anesthesia used (mL): 10 <DAIANA Matos - Last Filed: 11/19/22 16:42> Pre-repair: wound explored and irrigated extensively <DAIANA Matos - Last Filed: 11/19/22 16:42> Skin layer closed with: other (prolene) <DAIANA Matos - Last Filed: 11/19/22 16:42> Size (cm): 5-0 <DAIANA Matos Last Filed: 11/19/22 16:42> Number of sutures: 3 <DAIANA Matos Last Filed: 11/19/22 16:42> Technique: simple, interrupted (loosely approximated per orthopedic directions) <DAIANA Matos - Last Filed: 11/19/22 16:42> Orthopedic Splinting/Casting Injury #1: Side: right <DAIANA Matos - Last Filed: 11/19/22 16:42> Upper Extremity Injury Location: hand <DAIANA Matos - Last Filed: 11/19/22 16:42> Upper Extremity Immobilizer: sling/shoulder immobilizer and ulnar gutter <DAIANA Matos - Last Filed: 11/19/22 16:42> Critical Care Time Critical Care Time Critical Care Time: Yes <DAIANA Matos - Last Filed: 11/19/22 16:42> Total Critical Care Time: 45 <DAIANA Matos - Last Filed: 11/19/22 16:42> Attestation: I spent 45 minutes of Critical Care Time with this patient. This does not include time spent on separately reported billable procedures. <DAIANA Matos - Last Filed: 11/19/22 16:42> Discharge Plan Discharge Clinical Impression: Finger fracture, Hand laceration <Adrianna Siddiqui NP - Last Filed: 11/19/22 13:15> Patient Disposition: Home, Self-Care <Adrianna Siddiqui NP - Last Filed: 11/19/22 13:15> Instructions: Laceration (DC), Finger Fracture (ED) <Adrianna Siddiqui NP - Last Filed: 11/19/22 13:15> Additional Instructions: Follow up with your primary care provider and an orthopedic provider. You have 3 stitches between your right 5th and 4th fingers LOOSELY approximating the open area. You MUST follow up with the orthopedic about this and your underlying finger fracture. DO NOT REMOVE YOUR SPLINT OR GET IT WET. Only loosen the BENY wrap if you were to have numbness/tingling in the fingers. Return to the emergency department immediately if your symptoms worsen or if you develop any dizziness, shortness of breath, difficulty breathing, chest pain, blurry vision, loss of vision, nausea, vomiting, abdominal pain, fever, chills, back pain, or any other complaints. <Adrianna Siddiqui NP - Last Filed: 11/19/22 13:15> Prescriptions: New amoxicillin-pot clavulanate 875-125 mg tablet 1 tab PO BID 7 Days Qty: 14 0RF No Action (DME) blood-glucose meter [FreeStyle Lite Meter] Kit See Rx Instructions .ROUTE .MEDSUPPLY Qty: 1 0RF Rx Instructions: patient to check blood sugar 3 times daily (DME) lancets [FreeStyle Lancets] 28 gauge misc See Rx Instructions .ROUTE .MEDSUPPLY Qty: 100 0RF Rx Instructions: patient to check blood sugar 3 times daily (DME) OneTouch Ultra Blue Test Strip Strip See Rx Instructions .ROUTE .MEDSUPPLY Qty: 100 3RF Rx Instructions: patient to check blood sugar 3 times daily (DME) blood-glucose meter [OneTouch Ultra2 Meter] Misc See Rx Instructions .ROUTE .MEDSUPPLY Qty: 1 3RF Rx Instructions: Patient to check blood sugar 3 times daily (DME) FreeStyle Lite Strips Strip See Rx Instructions .ROUTE .MEDSUPPLY Qty: 100 0RF Rx Instructions: TID prn insulin glargine [Lantus Solostar U-100 Insulin] 100 unit/mL (3 mL) insulin pen 30 unit subcut ONCE 90 Days Qty: 27 5RF Rx Instructions: Administer it subcutaneously famotidine 40 mg tablet 40 mg PO BEDTIME Qty: 90 0RF (DME) pen needle, diabetic 31 gauge x 3/16 needle See Rx Instructions subcut BID Qty: 100 0RF Rx Instructions: qd albuterol sulfate 90 mcg/actuation HFA aerosol inhaler 1 - 2 puff PO Q4-6H PRN (Reason: respiratory symptoms) 30 Days Qty: 8.5 2RF amlodipine 10 mg tablet 10 mg PO DAILY 90 Days Qty: 90 0RF lisinopril 40 mg tablet 40 mg PO DAILY 90 Days Qty: 90 3RF latanoprost 0.005 % drops 1 drp ophthalmic (eye) BEDTIME omeprazole 20 mg capsule,delayed release(DR/EC) 20 mg PO DAILY dicyclomine 10 mg capsule 10 - 20 mg PO Q6H PRN (Reason: cramps) Dulera 200-5 mcg/actuation HFA aerosol inhaler 2 puff inhalation BID Qty: 8.8 1RF fentanyl 50 mcg/hr patch 72 hour 1 patch transdermal Q48H 30 Days Qty: 15 0RF tizanidine 4 mg tablet 4 mg PO BEDTIME PRN (Reason: for muscle spasm) 90 Days Qty: 90 1RF ondansetron HCl 4 mg tablet 4 mg PO ONCE PRN (Reason: nausea and vomiting) 90 Days Qty: 90 0RF <Adrianna Siddiqui NP - Last Filed: 11/19/22 13:15> [place] [facility] [place] [facility] [place]Provider Group] (Call to establish and follow up with a hand specialist. ) Tram Darby MD [Primary Care Provider] - <Adrianna Siddiqui NP - Last Filed: 11/19/22 13:15> Interventions: ED Discharge Assessment Last Done: 11/19/22 15:56 <Adrianna Siddiqui NP - Last Filed: 11/19/22 13:15> Discharge Date/Time: 11/19/22 15:56 <Adrianna Siddiqui NP - Last Filed: 11/19/22 13:15> Print Language: Ukrainian <Adrianna Siddiqui NP - Last Filed: 11/19/22 13:15>
[2022-11-19 13:13] VITALS: BP 162/78; PULSE 106; RESP 18; TEMP 36.6; O2SAT 96; BMI 28.9
[2022-11-19] MEDS: Diphth,Pertus(ACell),Tet Adult 0.5 ML SYRINGE IM (13:49)
--- NOTE | 2022-11-19 14:04 | PC.NURSE ---
pt medicated per SEP Tetanus updated vis
--- NOTE | 2022-11-19 14:36 | PC.NURSE ---
pt rt pinky soaking in NS and Iodine at this time
[2022-11-19] MEDS: Lidocaine HCl 1 % MPF 5 ML VIAL 15 ML SUBCUT (15:26)
[2022-11-19] MEDS: Amoxicillin/Potassium Clav 875 MG TABLET PO (15:51)
--- NOTE | 2022-11-19 15:55 | PC.NURSE ---
pt medicated per SEP pt aware will need to follow up with [facility] for further eval and tx
== END 2022-11-19 15:56 | disposition home or self-care (01) ==
PROVIDERS: Emergency Provider Student in an Organized Health Care Education/Training Program; PCP Internal Medicine
DX: S62.606A Fracture of unspecified phalanx of right little finger, initial encounter for closed fracture (principal); S61.216A Laceration without foreign body of right little finger without damage to nail, initial encounter; S60.416A Abrasion of right little finger, initial encounter; X58.XXXA Exposure to other specified factors, initial encounter; Y93.9 Activity, unspecified; Y92.9 Unspecified place or not applicable; Y99.9 Unspecified external cause status; Z23 Encounter for immunization
CPT/HCPCS: 12042; 29125; 73120; 90471; 90715; 99282; 99284

== ENCOUNTER → 2022-11-21 08:37 | Outpatient (BNVA) | payer MEDICARE, MEDICAID, SELFPAY | PROVIDERS: PCP Internal Medicine; Visit Provider Orthopaedic Surgery | DX: S62.616B Displaced fracture of proximal phalanx of right little finger, initial encounter for open fracture (principal); S64.496A Injury of digital nerve of right little finger, initial encounter | CPT/HCPCS: 99202 ==

== ENCOUNTER 2022-11-26 08:39 | Day surgery (SDC) | payer MEDICARE, MEDICAID, SELFPAY ==
[2022-11-26] VITALS (10 sets, daily range): BP systolic 132–160; BP diastolic 62–79; PULSE 86–127; RESP 16; TEMP 36.4–36.7; O2SAT 93–97; BMI 28.9
--- NOTE | ~2022-11-26 | FL_ITS ---
EXAMINATION: XR FLUOROSCOPY WITH IMAGES CLINICAL INFORMATION: Fracture base right fifth finger proximal phalanx. COMPARISON: Right hand radiographs 11/19/2022 TECHNIQUE: Fluoroscopy Supervised By: Dr. Lacy Haas. Fluoroscopy Time: 7 seconds. Cumulative Dose: 0.1131 mGy. DAP: 0.0068 Gycm2. Images: 3. FINDINGS: There is a fracture base fifth finger proximal phalanx with irregularity of the superficial soft tissues similar to prior radiographs 11/19/2022. A metal clamp is pointing towards the medial base fifth proximal phalanx. FL/FL guidance in OR IMPRESSION: Fluoroscopy for orthopedic procedure.
--- NOTE | 2022-11-26 10:43 | P.OP_ITS ---
Operative Note Operative Note Date of Service: 11/26/22 Narrative: Operative Note Narrative: Preop diagnosis: 1. Open fracture of right small finger proximal phalanx base from a chainsaw injury 2. Right small finger radial digital nerve laceration from a chainsaw 3. 5.5 cm complex laceration through the 4th webspace of the right hand. Postop diagnosis: 1. Open fracture of right small finger proximal phalanx base from a chainsaw injury, not unstable 2. Right small finger radial digital nerve laceration from a chainsaw? 3. Right small finger FDS tendon laceration in zone 2, FDP intact 4. Right small finger partial A2 kasey incompetence secondary to chainsaw injury 5. Right small finger radial lateral band loss secondary to chainsaw injury Procedure: 1. Right small finger proximal phalanx base fracture I and D of open fracture 2. Right small finger radial digital nerve repair 3. FDP and FDS tenolysis in zone 2 4. I and D of flexor tendon sheath 5. Repair 5.5 cm laceration through 4th webspace Surgeon: Lacy Haas MD Anesthesia: General Anesthesia Findings: Chain saw injury to the 4th web space. 1. Open fracture of right small finger proximal phalanx base from a chainsaw injury, not unstable 2. Right small finger radial digital nerve and vessel laceration from a chainsaw? 3. Right small finger FDS tendon laceration in zone 2, FDP intact 4. Right small finger partial A2 kasey loss secondary to chainsaw injury 5. Right small finger radial lateral band loss secondary to chainsaw injury 6. Right small finger central extensor tendon intact across the dorsal aspect of the proximal phalanx. Again the radial lateral band was lost. 7. Complex laceration of right hand involving the 4th web space and the small finger measuring 5.5-6.5 cm Implants: None Tourniquet time: 83 minutes EBL: 5.0 ml Specimen: None Drains: None Complications: None Disposition: Brought to the recovery room in stable condition Plan: Five additional days of Augmentin given. Continue oral antibiotics until they are finished. Follow-up at the end of the week for wound check. May begin washing with soap and water in the shower at 1 week postop. No immersion. May begin gentle [id number] exercises towards a weak fist and then towards extension for gentle tendon gliding beginning 1st postop follow-up.. No splint or cast necessary. Loose Pk taping of small finger to ring finger or bandaging together should suffice.. Begin daily dressing changes. Keep 4th web space from becoming macerated. Anticipate suture removal at about 2-3 weeks postop. Indications: The patient is a 67 year old woman with a chain saw injury to the base of the small finger causing an open fracture of the base of the small finger proximal phalanx, and a small finger radial digital nerve injury. . The risks and benefits of operative treatment, including but not limited to risk of damage to blood vessels, nerves, tendons, infection, recurrence, persistent pain or numbness, incomplete resolution of preoperative symptoms, or need for further surgery were discussed with the patient and they wished to proceed with surgery. Procedure: Once consent was obtained patient was brought back to the operating suite and placed in the operating table in a supine position. . Perioperative antibiotics and anesthesia was administered by the anesthesia team. A tourniquet was applied to the proximal aspect of the right upper extremity and the limb was prepped and draped in a standard surgical fashion. The limb was elevated exsanguinated with Esmarch bandage and the tourniquet inflated to 250 mm of mercury for a total tourniquet time of 83 minutes. ?An ulnar nerve block was performed by infiltrating about the ulnar nerve at the wrist with some 0.5% ropivacaine to facilitate intraoperative and postoperative pain control. The sutures were removed and the wound involving the 4th web space was evaluated. I was able to dissect down to the level of the open fracture at the radial base of the small finger. An I&D of this fracture was performed using a small curette and copious irrigation with normal saline. At this point I could see the flexor tendons, as the A2 kasey appeared to have been violated. The radial lateral bands were missing from the radial aspect of the finger at the proximal phalanx level. I made a 2 cm gently curved incision extending from the dorsal aspect of the 4th web space over the extensor tendon. This is done with a 15. Blade through the skin to the subcutaneous tissues. I then dissected down to the level of the sheath of tissue over the EDC tendon to the small finger. The EDC tendon exte nding dorsally over the MCP joint and over the dorsal aspect of the proximal phalanx, fortunately appears to be intact. Again the radial contribution of the sagittal band was missing. The mini C-arm was brought in and multiple fluoroscopic images were taken to assess our proximal phalanx fracture. There was some bone loss from the radial base of the proximal phalanx. However, the fracture does not appear unstable and is not in need of any fixation. Again an I&D was performed of this open fracture. Clot and soft tissue were carefully curetted from the fracture and the fracture was copiously irrigated. I extended from the volar ulnar aspect of the small finger pulmonary digital crease extending over the A1 kasey. This incision was made through the skin the subcutaneous tissues using a 15. Blade. This then allowed me to better evaluate the flexor tendon complex. The proximal 2/3 of the A2 kasey were missing, the distal 3rd of the A2 kasey appeared to be intact. The radial and ulnar slips of the eft ds tendon were lacerated at about the A2 kasey level. Fortunately, the FDP tendon appeared to be intact and in reasonable condition. I was able to apply some traction proximally and bring the finger into full flexion and then back into extension. I did not see any significant lacerations of the tendon. The flexor tendons were copiously irrigated. The ulnar neurovascular bundle was identified and found to be intact in the zone of injury. The radial neurovascular bundle had sustained a laceration. The wound was debrided of any nonviable tissue. This was carefully done using tenotomy scissors and a rongeur. The wound was copiously irrigated with normal saline. Beginning dorsally the skin edges were reapproximated with some 5 0 nylon suture material. I again began to reapproximate the complex laceration dorsally, reapproximating the skin edges with 5 0 nylon suture material. I then advanced through the 4th web space. Once my attention was again turned to the volar aspect of the hand I then performed a repair of the radial digital nerve using some 7 0 nylon suture. Wound was again irrigated with normal saline. The volar aspect of the laceration skin edges were then reapproximated using some 5 0 nylon suture material. At this point the tourniquet was deflated and hemostasis obtained with a brief period of local pressure and bipolar electrocautery. The wound was infiltrated with some additional 0.5% plain ropivacaine for postop pain control and a sterile dressing was applied. The patient appears to have tolerated the procedure well and with no complications. All digits were well vascularized conclusion of the case.
[2022-11-26 11:20] LABS: Glucose, Whole Blood 148 mg/dL (60-115)
[2022-11-26] MEDS: Lactated Ringers 1,000 ML 100 ML IVCONT (11:28)
--- NOTE | 2022-11-26 11:50 | HO.ANESPROP2 ---
Documented by User: Anne Esquivel NP 11/23/22 12:54 HPI - Anesthesia Eval Consult details Narrative: 66yo F for Right Possible Finger Fx CRPP vs ORIF small finger,possible repair of tendons, Irrigation and debridement small ring finger Fentanyl patch PMFSH Active Problems Active Problems: All Active Problems (Updated 11/21/22 @ 10:42 by Lacy Haas MD) Injury of digital nerve of right little finger (Acute) Open fracture of proximal phalanx of right little finger (Acute) Shortness of breath (Acute) Hospital discharge follow-up (Acute) Abdominal pain (Acute) Elevated blood pressure reading (Acute) Pre-op evaluation (Acute) Right otitis media (Acute) detention (current) use of insulin (Acute) Acute sinusitis (Acute) Sacroiliitis (Acute) Hip pain, right (Acute) Radiculitis, lumbosacral (Acute) HNP (herniated nucleus pulposus), lumbar (Acute) Spinal stenosis, lumbar (Acute) Lipid disorder (Acute) Essential hypertension (Acute) Other and unspecified hyperlipidemia (Acute) Pain management (Acute) Narcotic dependence (Acute) Herniated nucleus pulposus, cervical (Acute) Hypertension, essential (Acute) Muscle spasm (Acute) Failed back syndrome (Acute) DJD (degenerative joint disease) of thoracic spine (Acute) Radiculitis of right cervical region (Acute) Chronic GERD (Acute) LFTs abnormal (Acute) Diabetes 1.5, managed as type 1 (Acute) Past Medical History Medical History Asthma Chronic GERD Diabetes 1.5, 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 Mother Stomach cancer Surgical History Surgical History History of cervical spinal surgery History of colonoscopy History of esophagogastroduodenoscopy History of esophagogastroduodenoscopy History of hysterectomy with oophorectomy History of lumbar surgery Hx of cholecystectomy Social History Social History Housing: House Alcohol intake: never Patient Tobacco Use Status: Never used Tobacco e-Cigarette/Vaping Use: Never Used Use of substances other than those prescribed or required for medical reasons: No Are you DNR?: No Advance Directives: No Advance Directives Information Provided: Yes service: No Current occupational status: disabled Cognitive needs: No Hearing needs: No Vision needs: Yes Meds Allergies Allergy/AdvReac Type Severity Reaction Status Date / Time duloxetine [From Cymbalta] Allergy Intermediate Gastrointestinal Verified 11/26/22 11:05 Upset gabapentin Allergy Intermediate Gastrointestinal Verified 11/26/22 11:05 Upset milnacipran [From Savella] Allergy Intermediate Gastrointestinal Verified 11/26/22 11:05 Upset naloxegol [Movantik] Allergy Intermediate Gastrointestinal Verified 11/26/22 11:05 Upset pregabalin [From Lyrica] Allergy Intermediate Gastrointestinal Verified 11/26/22 11:05 Upset Home Medications Medication Instructions Recorded Confirmed Last Taken Type latanoprost 0.005 % eye drops 1 drp ophthalmic (eye) BEDTIME 04/29/20 11/26/22 Unknown History omeprazole 20 mg capsule,delayed 20 mg PO DAILY heartburn 04/29/20 11/26/22 11/26/22 08:30 History release dicyclomine 10 mg capsule 10 - 20 mg PO Q6H PRN cramps 12/20/20 11/26/22 Unknown History Exam Exam Date and Time: November 23, 2022 125 Narrative Narrative: Laboratory Tests 08/16/22 08/16/22 10:42 10:42 WBC 7.4 Hgb 13.9 Hct 43.0 Plt Count 185 Sodium 143 Potassium 5.0 Chloride 103 Carbon Dioxide 30 H BUN 18 H Creatinine 0.91 Assessment and Plan Assessment Anesthesia Assessment: Chart Reviewed Documented by User: Bela Aguilera DO 11/26/22 12:26 HPI - Anesthesia Eval Consult details Narrative: 66yo F for Right Possible Finger Fx CRPP vs ORIF small finger,possible repair of tendons, Irrigation and debridement small ring finger Fentanyl patch 50 mcg/hr [facility] Past Medical History Medical History Asthma Chronic GERD Diabetes 1.5, 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 Mother Stomach cancer Surgical History Surgical History History of cervical spinal surgery History of colonoscopy History of esophagogastroduodenoscopy History of esophagogastroduodenoscopy History of hysterectomy with oophorectomy History of lumbar surgery Hx of cholecystectomy History of Problems with Anesthesia: No Social History Social History Housing: House Alcohol intake: never Patient Tobacco Use Status: Never used Tobacco e-Cigarette/Vaping Use: Never Used Use of substances other than those prescribed or required for medical reasons: No Are you DNR?: No Advance Directives: No Advance Directives Information Provided: Yes service: No Current occupational status: disabled Cognitive needs: No Hearing needs: No Vision needs: Yes Meds Allergies Allergy/AdvReac Type Severity Reaction Status Date / Time duloxetine [From Cymbalta] Allergy Intermediate Gastrointestinal Verified 11/26/22 11:05 Upset gabapentin Allergy Intermediate Gastrointestinal Verified 11/26/22 11:05 Upset milnacipran [From Savella] Allergy Intermediate Gastrointestinal Verified 11/26/22 11:05 Upset naloxegol [Movantik] Allergy Intermediate Gastrointestinal Verified 11/26/22 11:05 Upset pregabalin [From Lyrica] Allergy Intermediate Gastrointestinal Verified 11/26/22 11:05 Upset Home Medications Medication Instructions Recorded Confirmed Last Taken Type latanoprost 0.005 % eye drops 1 drp ophthalmic (eye) BEDTIME 04/29/20 11/26/22 Unknown History omeprazole 20 mg capsule,delayed 20 mg PO DAILY heartburn 04/29/20 11/26/2223 08:30 History release dicyclomine 10 mg capsule 10 - 20 mg PO Q6H PRN cramps 12/20/20 11/26/22 Unknown History Exam Exam Date and Time: November 26, 2022 1150 Height,Weight and Vital Signs: Vital Signs Temperature 97.5 F 11/26/22 11:12 Pulse Rate 86 11/26/22 11:12 Respiratory Rate 16 11/26/22 11:12 Blood Pressure 134/79 11/26/22 11:12 Pulse Oximetry 97 11/26/22 11:12 Oxygen Delivery Method Room Air 11/26/22 11:12 Temperature 97.5 F 11/26/22 11:12 Pulse Rate 86 11/26/22 11:12 Respiratory Rate 16 11/26/22 11:12 Blood Pressure 134/79 11/26/22 11:12 Pulse Oximetry 97 11/26/22 11:12 Oxygen Delivery Method Room Air 11/26/22 11:12 Height 5 ft 3 in Weight 73.936 kg Airway Mallampati Class: II TM Dist: >3cm Neck ROM: Full Loose/Missing/Broken Teeth: No (Patient reports chronic tooth pain in right lower jaw) Heart: S1S2 Lungs: CTAB Assessment and Plan Assessment Anesthesia Assessment: Anesthesia Plan Discussed and Chart Reviewed Final Anesthetic Review History of Problems with Anesthesia: No NPO: Yes ASA Class: III Final Preanesthetic Review: No Changes in Pt Med Stat, Meds/Allgs Chart Reviewed, Consent Obtained/Reviewed and Anes Risks/Benef Reviewed Patient Risk: Intermediate Procedure Risk: Low Anesthetic Plan Anesthetic Plan: GA and Agree w/ Assess. and Plan Disposition: Standard PACU
--- NOTE | 2022-11-26 12:04 | PC.NURSE ---
NEAL BORJAS REGISTRAR MUSEUM AND DR. FLOWERS MADE AWARE PATIENT WEARING FENTANYL PATCH ON RIGHT UPPER REAR SHOULDER.
--- NOTE | 2022-11-26 12:11 | MHC.SHP ---
Pre-Procedural Eval Section A Date of Service: 11/26/22 The patient is an INPATIENT: No Changes since office visit: No Cold of Flu in the past 2 weeks, No New Medical Problems, No Changes in Medication and No Patient answered all questions The History & Physical has been completed within 30 days and I have reviewed it.: Yes Section B Chief Complaint: Displaced fracture of proximal phalanx of right in Allergies: Allergies Allergy/AdvReac Type Severity Reaction Status Date / Time duloxetine [From Cymbalta] Allergy Intermediate Gastrointestinal Verified 11/26/22 11:05 Upset gabapentin Allergy Intermediate Gastrointestinal Verified 11/26/22 11:05 Upset milnacipran [From Savella] Allergy Intermediate Gastrointestinal Verified 11/26/22 11:05 Upset naloxegol [Movantik] Allergy Intermediate Gastrointestinal Verified 11/26/22 11:05 Upset pregabalin [From Lyrica] Allergy Intermediate Gastrointestinal Verified 11/26/22 11:05 Upset Plan I have reviewed the history and physical and performed a pertinent physical examination on my patient. No changes have occurred unless specified. Time Spent With Patient Time: Total time managing care of this patient today ____ minutes.
== END 2022-11-26 16:26 | disposition home or self-care (01) ==
PROVIDERS: PCP Internal Medicine; Visit Provider Orthopaedic Surgery
PROC: (CPT 26356; principal; 2022-11-26 10:40)
PROC: (CPT 26356; 2022-11-26 10:40)
DX: S62.616B Displaced fracture of proximal phalanx of right little finger, initial encounter for open fracture (principal); S64.496A Injury of digital nerve of right little finger, initial encounter; S66.126A Laceration of flexor muscle, fascia and tendon of right little finger at wrist and hand level, initial encounter; S61.401A Unspecified open wound of right hand, initial encounter; W29.3XXA Contact with powered garden and outdoor hand tools and machinery, initial encounter; Y93.89 Activity, other specified; Y92.9 Unspecified place or not applicable; Y99.8 Other external cause status; J45.909 Unspecified asthma, uncomplicated; I10 Essential (primary) hypertension; E13.8 Other specified diabetes mellitus with unspecified complications; Z79.4 Long term (current) use of insulin; M96.1 Postlaminectomy syndrome, not elsewhere classified; M50.10 Cervical disc disorder with radiculopathy, unspecified cervical region; M47.814 Spondylosis without myelopathy or radiculopathy, thoracic region; M62.830 Muscle spasm of back; F11.20 Opioid dependence, uncomplicated; Z88.8 Allergy status to other drugs, medicaments and biological substances
CPT/HCPCS: 26356; 64831; 12002; 82947; J0690; J1100; J2370; J2405; J2550; J2795; J3010

== ENCOUNTER → 2022-11-30 12:50 | Outpatient (BNVA) | payer MEDICARE, MEDICAID, SELFPAY | PROVIDERS: PCP Internal Medicine; Visit Provider Physician Assistant | DX: S62.616D Displaced fracture of proximal phalanx of right little finger, subsequent encounter for fracture with routine healing (principal); S64.496D Injury of digital nerve of right little finger, subsequent encounter | CPT/HCPCS: 99212 ==

== ENCOUNTER → 2022-12-11 10:53 | Outpatient (BNVA) | payer MEDICARE, MEDICAID, SELFPAY | PROVIDERS: PCP Internal Medicine; Visit Provider Orthopaedic Surgery | DX: S62.616D Displaced fracture of proximal phalanx of right little finger, subsequent encounter for fracture with routine healing (principal); S64.496D Injury of digital nerve of right little finger, subsequent encounter | CPT/HCPCS: 99212 ==

== ENCOUNTER 2023-01-11 09:55 | Outpatient (REF) | payer MEDICARE, MEDICAID, SELFPAY ==
[2023-01-11 11:26] LABS: Estimated Average Glucose 177 mg/dL; Hemoglobin A1c % 7.8 %
[2023-01-11 12:29] LABS: Alanine Aminotransferase 79 U/L (0-31); Albumin Level 4.2 g/dL (3.5-5.0); Alkaline Phosphatase 290 U/L (39-117); Anion Gap 15 (12-20); Aspartate Amino Transferase 30 U/L (5-31); Bilirubin Total 0.6 mg/dL (0.0-1.0); Blood Urea Nitrogen 13 mg/dL (9-16); Carbon Dioxide 29 mmol/L (22-29); Chloride 104 mmol/L (96-108); Estimated Glomerular Filt Rate > 60; Glucose Random 96 mg/dL (60-115); Potassium 4.6 mmol/L (3.3-5.1); Sodium 143 mmol/L (135-145); Total Protein 7.9 g/dL (6.5-8.0)
[2023-01-13 03:09] LABS: LDL Cholesterol Direct 132 mg/dL (<100)
[2023-01-16 09:38] LABS: Codeine, Ur NEGATIVE; Hydrocodone, Ur NEGATIVE; Oxycodone, Ur NEGATIVE
[2023-01-16 09:40] LABS: Hydromorphone, Ur NEGATIVE; Morphine, Ur NEGATIVE
[2023-01-16 09:41] LABS: Norhydrocodone, Ur NEGATIVE; Noroxycodone, Ur NEGATIVE
== END 2023-01-11 09:56 | disposition home or self-care (01) ==
LOC: HO.LAB 09:55
PROVIDERS: PCP Internal Medicine; Visit Provider Internal Medicine
DX: F11.20 Opioid dependence, uncomplicated (principal); R94.5 Abnormal results of liver function studies; M96.1 Postlaminectomy syndrome, not elsewhere classified; M62.838 Other muscle spasm; M50.20 Other cervical disc displacement, unspecified cervical region; M54.12 Radiculopathy, cervical region; M48.061 Spinal stenosis, lumbar region without neurogenic claudication; M47.814 Spondylosis without myelopathy or radiculopathy, thoracic region; K21.9 Gastro-esophageal reflux disease without esophagitis; I10 Essential (primary) hypertension; E13.9 Other specified diabetes mellitus without complications
CPT/HCPCS: 80053; 80307; 80364; 80365; 83036; 83721; 85025

== ENCOUNTER 2023-01-15 13:51 | Outpatient (AMB) | payer MEDICARE, MEDICAID, SELFPAY ==
--- NOTE | 2023-01-15 13:53 | A.OFFVIS_ITS ---
Intake Vital Signs 01/15/23 13:56 Height 5 ft 3 in Weight 163 lb BMI 28.9 Intake Visit Reasons: Postop-R SF I&D,Open 11/26/22 AR Intake Note: Syeda 67 yr old female presents today for her Post Op Right SF I&D DOS 11/26/22. States she has been working with O.T and is slowly improving. She is able to bend her pinky but not fully. Allergies duloxetine [From Cymbalta] Allergy (Intermediate, Verified 01/15/23 13:56) Gastrointestinal Upset gabapentin Allergy (Intermediate, Verified 01/15/23 13:56) Gastrointestinal Upset milnacipran [From Savella] Allergy (Intermediate, Verified 01/15/23 13:56) Gastrointestinal Upset naloxegol [Movantik] Allergy (Intermediate, Verified 01/15/23 13:56) Gastrointestinal Upset pregabalin [From Lyrica] Allergy (Intermediate, Verified 01/15/23 13:56) Gastrointestinal Upset HPI Postop-R SF I&D,Open 11/26/22 AR HPI Details Syeda is a 67 year old right hand dominant woman who presents S/P: 1. Right small finger I&D of open fracture 2. Right small finger radial digital nerve repair 3. FDP and FDS tenolysis in zone 2 4. I&D of flexor tendon sheath 5. Repair of ~5.5cm laceration through 4th webspace All from a chainsaw injury, DOI: 11/19/22 DOS: 11/26/22 She says she is doing well and has some discomfort, but denies any pain. She has been working on gentle ROM and tendon gliding exercises at home and with OT. She says she is able to somewhat bend her small finger, but cannot make a full fist with it yet. 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 Mother Stomach cancer Social History Housing: House Alcohol intake: never Patient Tobacco Use Status: Never used Tobacco e-Cigarette/Vaping Use: Never Used service: No Current occupational status: disabled Cognitive needs: No Hearing needs: No Vision needs: Yes Review of Systems Const All systems reviewed & are unremarkable except as noted in HPI and below Physical Exam Vital Signs: BMI result Body Mass Index 28.9 Const General: no acute distress and alert Orientation/consciousness: patient oriented x3 Neuro General: patient oriented x3 Extrem Other: The patient was alert oriented and in no acute distress The incision is well-healed with no erythema drainage or evidence of infection. Her range of motion has improved since her last visit. She can bring her small fingertip actively to ~2cm from her palm, and passively to ~1cm from her palm She has good extension and can place her hand flat on the table Could get index middle and ring fingers to full fist actively and back into extension. Still has dense numbness in the radial digital nerve distribution of the small finger. Intact normal sensation to the ulnar nerve distribution Cap refill is brisk Psych Appearance: grossly normal Affect: normal affect Attitude: cooperative Assessment & Plan Assessment & Plan (1) Open fracture of proximal phalanx of right little finger: Code(s): S62.616B - Displaced fracture of proximal phalanx of right little finger, initial encounter for open fracture (2) Injury of digital nerve of right little finger: Code(s): S64.496A - Injury of digital nerve of right little finger, initial encounter Plan Assessment & Plan 1. Right small finger open proximal phalanx base 2. Right small finger radial digital nerve laceration 3. Right small finger complex laceration through the 4th webspace of the right hand. Measuring ~5.5cm pre-operatively S/P: 1. Right small finger I&D of open fracture 2. Right small finger radial digital nerve repair 3. FDP and FDS tenolysis in zone 2 4. I&D of flexor tendon sheath 5. Repair of ~5.5cm laceration through 4th webspace All from a chainsaw injury, DOI: 11/19/22 DOS: 11/26/22 Still with dense numbness in the radial digital nerve distribution The patient appears to be doing well post-operatively. She is showing good improvement in her active and passive range of motion. I educated her about the post-operative course I discussed activity modifications, she is able to use her hand for daily activities She will perform gentle ROM exercises at home She will continue to work with OT hand therapy on ROM and tendon gliding exercises She can follow up prn Scribed for Lacy Haas MD by Luis Alberto Bennett, medical authorization specialist, on 01/15/23 at 2:45 PM, EST. Coding Level of Care Code Global (52486) Diagnoses Open fracture of proximal phalanx of right little finger S62.616B Injury of digital nerve of right little finger S64.496A
[2023-01-15 13:56] VITALS: BMI 28.9
== END 2023-01-15 14:50 | disposition home or self-care (01) ==
PROVIDERS: PCP Internal Medicine; Visit Provider Orthopaedic Surgery
DX: S62.616B Displaced fracture of proximal phalanx of right little finger, initial encounter for open fracture (principal); S64.496A Injury of digital nerve of right little finger, initial encounter
CPT/HCPCS: 99024

== ENCOUNTER → 2023-01-15 13:51 | Outpatient (BNVA) | payer MEDICARE, MEDICAID, SELFPAY | PROVIDERS: PCP Internal Medicine; Visit Provider Orthopaedic Surgery ==

== ENCOUNTER 2023-01-23 13:00 | Outpatient (RCR) | payer MEDICARE, MEDICAID, SELFPAY ==
--- NOTE | 2022-12-28 13:41 | MHC.OT.EP ---
[address] [phone] Occupational Therapy Plan of Care Patient Name: Syeda Doll Date of Evaluation: 12/26/22 Diagnosis: OPEN FRACTURE OF PROXIMAL PHALANX OF RIGHT LITTLE FINGER Pain Location: PAINFREE AT REST 3-4/10 WITH USE R DORSAL AND VOLAR SF, MEDIAL ASPECT OF SF Pain Score: 0-4/10 Pain Scale Used: Numeric (0 - 10) Aggravating Factors: LIFTING, CARRYING ITEMS >8 POUNDS Alleviating Factors: RELIEF WITH USE OF WARM WATER, NOT USING PAIN MEDICATION Assessment: MS DOLL IS 4.5 WEEKS S/P I&D OF R SF PROXIMAL PHALANX FRACTURE, R SF RADIAL DIGITAL NERVE REPAIR, ZONE 2 FDP AND FDS TENOLYSIS, I&D OF FLEXOR TENDON SHEATH AND REPAIR OF ~5.5 CM LACERATION THROUGH 4TH WEBSPACE. SHE REPORTS THAT SHE IS MOSTLY PAINFREE AT REST AND 3-4/10 WITH USE. SHE HAS SOME SCAR TISSUE, EDEMA, ROM AND STRENGTH LIMITATIONS. SHE REPORTS A 28% LIMITATION PER THE QUICK DASH ASSESSMENT. ONGOING SKILLED OT IS WARRANTED TO ACHIEVE MAXIMUM FUNCTIONAL LEVEL AND IMPROVE QOL. 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 Thank you once again for your referrall.
--- NOTE | 2023-01-11 14:24 | MHC.OT.OP ---
[address] [phone] F: [phone] Occupational Therapy Progress Note Patient Name: Syeda Doll Diagnosis: OPEN FRACTURE OF PROXIMAL PHALANX OF RIGHT LITTLE FINGER Date of Surgery: 11/26/22 Date of Evaluation: 12/26/22 Treatments to Date: 4 Cancellations to Date: 0 No Shows to Date: 1 Subjective: NOT A LOT OF PAIN Pain Score: 1 Pain Location: D4/D5 WEB SPACE Objective Measures: 01/11/23 R GROSS GRASP 25 POUNDS POST-RX MEASUREMENTS: R SF MCP , PIPj , DIPj Status: Progressing Assessment: MS DOLL IS PROGRESSING WELL WITH HER ROM, STRENGTH, SCAR MOBILIZATION AND DESENSITIZATION STRATEGIES. SHE WAS ISSUED AN LMB TO ADDRESS PIPj EXTENSION, WELL ELASTOMERE SCAR PAD TO BE WORN AT NIGHT. SHE IS ABLE TO TOLERATE A FEW MINUTES OF ROUGH TEXTURES AND VIBRATION OF <5 MINS. ONGOING SKILLED OT IS WARRANTED TO CONT TO ADDRESS THE AREAS MENTIONED ABOVE. Pt IS HIGHLY MOTIVATED. Short Term Goals: IND HEP IND USE OF HEAT/ ICE IND EDEMA MANAGEMENT STRATEGIES IMPROVE HANDWRITING AND FINE MOTOR SKILLS TO FUNCTIONAL LEVEL PER FUNCTIONAL DEXTERITY TEST ACHIEVE LOOSE COMPOSITE FIST ON R (MET) Jail Goals: R GROSS GRASP >20 POUNDS (MET) TOLERATE LIFTING >10 POUNDS DURING IADLs WITH <4/10 PAIN IND SCAR MOBILIZATION TOLERATE >8 MINS OF ROUGH TEXTURES, VIBRATION, ETC TO R HAND Frequency and Duration: The patient will be seen 2X/WEEK FOR 3 WEEKS Treatment Plan: Therapeutic Exercise Therapeutic Activity Home Exercise Program Splinting Neuro Re-ed Patient Education Desensitization/Sensory Re-ed Edema Control ADL Training Ultrasound NMES Iontophoresis Paraffin Fluidotherapy MHP Cold Packs Joint Mobilization Soft Tissue Mobilization Kinesiotaping Other (see comments) Electronically Signed By: GERARDO ANDRES OTR/L Reviewed/agree with student documentation: N/A Therapist:
--- NOTE | 2023-01-25 07:37 | MHC.OT.DC ---
[address] [phone] F: [phone] Occupational Therapy Discharge Note Patient Name: Syeda Doll Provider: Lacy Haas Diagnosis: OPEN FRACTURE OF PROXIMAL PHALANX OF RIGHT LITTLE FINGER Date of Surgery: 11/26/22 Date of Evaluation: 12/26/22 Date of Discharge: 01/23/23 Treatments to Date: 6 Cancellations to Date: 0 No Shows to Date: 2 Discharge Status: Improved Function Independent with HEP Patient Elected to Stop Discharge Summary: MS DOLL HAS PROGRESSED WELL WITH HER OT GOALS, SHE IS HIGHLY MOTIVATED. SHE DEMONSTRATED ONGOING IMPROVEMENTS IN STRENGTH AND FUNCTIONAL ABILITIES IN HER DOMINANT R HAND. DENIES LIMITATIONS AT HOME WITH IADLs. SHE CONT TO REPORT SOME HYPERSENSITIVITY TO ROUGH TEXTURES AT DORSAL > VOLAR MCP. Pt IS IND WITH SCAR MANAGEMENT AND HEP. Pt WISHING TO D/C TO A HOME BASED PROGRAM. Electronically Signed By: GERARDO ANDRES OTR/L Reviewed/agree with student documentation: N/A Therapist: Please Sign and return to therapist, thank you for your referral.
== END 2023-01-25 07:35 | disposition home or self-care (01) ==
LOC: HO.OT 13:00
PROVIDERS: PCP Internal Medicine; Visit Provider Orthopaedic Surgery
DX: S62.616B Displaced fracture of proximal phalanx of right little finger, initial encounter for open fracture (principal); S64.496D Injury of digital nerve of right little finger, subsequent encounter
CPT/HCPCS: 29130; 97110; 97140; 97166; 97167; 97530; 97760

== ENCOUNTER 2023-01-30 13:04 | Outpatient (AMB) | payer MEDICARE, MEDICAID, SELFPAY ==
[2023-01-30 13:13] VITALS: BP 112/66; PULSE 100; O2SAT 98; BMI 28.2
--- NOTE | 2023-01-30 13:13 | MHC.PC.OV ---
Vital Signs 01/30/23 13:13 Height 5 ft 3 in Weight 159 lb BMI 28.2 BP 112/66 Blood Pressure Location Lt brachial Position Sitting Pulse 100 Pulse Source Pulse Oximeter Pulse Oximetry (%) 98 Oxygen Delivery Method Room Air Intake Visit Reasons: 4 week follow up Allergies duloxetine [From Cymbalta] Allergy (Intermediate, Verified 01/30/23 13:13) Gastrointestinal Upset gabapentin Allergy (Intermediate, Verified 01/30/23 13:13) Gastrointestinal Upset milnacipran [From Savella] Allergy (Intermediate, Verified 01/30/23 13:13) Gastrointestinal Upset naloxegol [Movantik] Allergy (Intermediate, Verified 01/30/23 13:13) Gastrointestinal Upset pregabalin [From Lyrica] Allergy (Intermediate, Verified 01/30/23 13:13) Gastrointestinal Upset Medication List - Last Reconciled 01/30/23 by Tram Darby MD albuterol sulfate 90 mcg/actuation 1 - 2 puffs PO Q4-6H PRN 30 days amlodipine 10 mg PO DAILY 90 days blood sugar diagnostic (OneTouch Ultra Blue Test Strip) patient to check blood sugar 3 times daily blood sugar diagnostic (FreeStyle Lite Strips) TID prn blood-glucose meter (FreeStyle Lite Meter kit) patient to check blood sugar 3 times daily blood-glucose meter (OneTouch Ultra2 Meter) Patient to check blood sugar 3 times daily famotidine 40 mg PO BEDTIME fentanyl 50 mcg/hr 1 patch transdermal Q48H 30 days insulin glargine (Lantus Solostar U-100 Insulin) 30 units (0.3 mL) subcut ONCE 90 days lancets (FreeStyle Lancets) patient to check blood sugar 3 times daily latanoprost 0.005% 1 drp ophthalmic (eye) BEDTIME lisinopril 40 mg PO DAILY 90 days omeprazole 20 mg PO DAILY ondansetron HCl 4 mg PO ONCE PRN 90 days pen needle, diabetic qd tizanidine 4 mg PO BEDTIME PRN 90 days Tobacco use date assessed: 01/30/23 Fall risk assessment: No Falls in past year Last assessed Fall Risk: 01/30/23 Dental Screening Dental Screen Date: 01/30/23 Did you have a dental visit in the last 12 months?: No Did you have a dental problem in the last 6 months where you did not have access to dental care?: No Was dental information given to patient?: No HPI 4 week follow up HPI Details Patient is 67-year-old female came in today for her monthly visit for medication refill Patient is on fentanyl patch secondary to failed back syndrome she is doing well with this medication No side effects complying with the treatment plan pain contract on file up-to-date Muscle relaxer as needed Follow-up 4 weeks PFS Medical History Asthma Chronic GERD Diabetes 1.5, 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 Mother Stomach cancer Social History Housing: House Alcohol intake: never Patient Tobacco Use Status: Never used Tobacco e-Cigarette/Vaping Use: Never Used service: No Current occupational status: disabled Cognitive needs: No Hearing needs: No Vision needs: Yes Questionnaire Thrive Questionnaire Date Thrive assessed: 08/07/22 AUDIT C Alcohol Use Questionnaire (AUDIT-C) 1. How often do you have a drink containing alcohol?: Never 3. How often do you have six or more drinks on one occasion?: Never Total Score: 0 Score Reviewed/Action Taken: Yes SACHIN-7 AMB Questionnaire SACHIN-7 Date SACHIN - 7 assessed: 08/07/22 Source: Developed by Drs. Tommy Graham, Marnie Ford, Sebastien Vaughn and colleagues, with an educational mayito from [employer] Review of Systems Const Denies chills and Denies fever(s) ENT Denies epistaxis and Denies nasal discharge Card Denies chest pain Resp Denies chest congestion, Denies cough and Denies hemoptysis GI Denies diarrhea and Denies nausea Skin/Breast Denies rash Neuro Reports no additional complaints Psych Reports no additional complaints Endo Reports no additional complaints Physical exam (Primary Care) Vital Signs: Last Vital Signs Pulse 100 01/30/23 13:13 BP 112/66 01/30/23 13:13 Pulse Ox 98 01/30/23 13:13 Oxygen Delivery Method Room Air 01/30/23 13:13 BMI result Body Mass Index 28.2 Tobacco/Smoking Status: Tobacco use Status Tobacco use date assessed 01/30/23 01/30/23 13:16 Patient Tobacco Use Status Never used Tobacco 01/30/23 13:16 e-Cigarette/Vaping Use Never Used 01/30/23 13:16 Thrive Assessment: Date of Thrive Assessment Date Thrive assessed 08/07/22 01/30/23 13:16 Const General: cooperative, comfortable and no acute distress Orientation/consciousness: patient oriented x3 HENMT Head: Yes normocephalic Eyes General: appearance normal, both eyes and all related structures Neck Neck: Yes supple Resp Effort & Inspection: normal respiratory effort, no cough and no stridor Cardio Rhythm: regular rhythm Heart sounds: S1 normal heart sound present and S2 normal heart sound present Skin General skin exam: turgor normal Neuro General: patient oriented x3, tone normal and moves all extremities Extrem Right lower extremity: no edema Left lower extremity: no edema Assessment and Plan Assessment & Plan (1) Narcotic dependence: Code(s): F11.20 - Opioid dependence, uncomplicated (2) Pain management: Code(s): R52 - Pain, unspecified (3) Medication management contract signed: Code(s): Z02.89 - Encounter for other administrative examinations (4) Foul smelling urine: Code(s): R82.90 - Unspecified abnormal findings in urine Plan Patient is 67-year-old female came in today for her monthly visit for medication refill Patient is on fentanyl patch secondary to failed back syndrome she is doing well with this medication No side effects complying with the treatment plan pain contract on file up-to-date Muscle relaxer as needed Complaining of foul-smelling urine I have ordered UA to be done today in lab Follow-up 4 weeks Orders: Orders UA CC w/rflx Micro + Cult Today R82.90 - Unspecified abnormal findings in urine AMB Hemoglobin A1c Today E13.9 - Other specified diabetes mellitus without complications Medications: Refilled fentanyl 50 mcg/hr 1 patch transdermal Q48H 30 days 15 ea 0RF F11.20 - Opioid dependence, uncomplicated, M50.20 - Other cervical disc displacement, unspecified cervical region, M96.1 - Postlaminectomy syndrome, not elsewhere classified, R52 - Pain, unspecified Coding Level of Care Code Est Pt Level 3 (73870) Diagnoses Narcotic dependence F11.20 Pain management R52 Medication management contract signed Z02.89 Foul smelling urine R82.90
== END 2023-01-30 14:20 | disposition home or self-care (01) ==
PROVIDERS: PCP Internal Medicine; Visit Provider Internal Medicine
DX: F11.20 Opioid dependence, uncomplicated (principal); R52 Pain, unspecified; R82.90 Unspecified abnormal findings in urine; E13.9 Other specified diabetes mellitus without complications
CPT/HCPCS: 83036; 99213

== ENCOUNTER 2023-01-30 13:36 | Outpatient (REF) | payer MEDICARE, MEDICAID, SELFPAY ==
[2023-01-30 16:38] LABS: Appearance Urine Clear; Color Urine Dark Yellow; Glucose Urine UA Negative (Negative); Leukocyte Esterase Urine Small (1+) (Negative); Nitrite Urine Negative (Negative); PH 5.5 (5.0-9.0); Specific Gravity - Urine 1.015 (1.005-1.025); UMIC TRIGGER UACC YES; Urine Blood Negative (Negative); Urine Ketones Trace mg/dL (Negative); Urine Protein Trace mg/dL (Neg-Trace)
[2023-01-30 16:56] LABS: Fentanyl, urine POSITIVE (Not Detect)
[2023-01-30 16:58] LABS: Hyaline Casts Urine 0-2 /LPF (0-2); RBC Urine 0-2 /HPF (0-2); Squamous Epithelial Cell Urine 0-2 /HPF (0-2); UACC Culture Trigger YES; WBC Urine 0-5 /HPF (0-5)
[2023-01-30 16:59] LABS: Bacteria Urine None Seen (None Seen)
== END 2023-01-30 13:37 | disposition home or self-care (01) ==
LOC: HO.HMGCLDS 13:36
PROVIDERS: PCP Internal Medicine; Visit Provider Internal Medicine
DX: M48.061 Spinal stenosis, lumbar region without neurogenic claudication (principal); R52 Pain, unspecified; F11.20 Opioid dependence, uncomplicated
CPT/HCPCS: 80307; 81001; 87086

== ENCOUNTER 2023-02-27 11:36 | Outpatient (AMB) | payer MEDICARE, MEDICAID, SELFPAY ==
--- NOTE | 2023-02-27 11:37 | MHC.PC.OV ---
Vital Signs 02/27/23 11:40 Height 5 ft 3 in Weight 159 lb 4 oz BMI 28.2 BP 136/70 Blood Pressure Location Rt brachial Position Sitting Pulse 96 Pulse Source Pulse Oximeter Pulse Oximetry (%) 100 Oxygen Delivery Method Room Air Intake Visit Reasons: 4 week fu Allergies duloxetine [From Cymbalta] Allergy (Intermediate, Verified 02/27/23 11:37) Gastrointestinal Upset gabapentin Allergy (Intermediate, Verified 02/27/23 11:37) Gastrointestinal Upset milnacipran [From Savella] Allergy (Intermediate, Verified 02/27/23 11:37) Gastrointestinal Upset naloxegol [Movantik] Allergy (Intermediate, Verified 02/27/23 11:37) Gastrointestinal Upset pregabalin [From Lyrica] Allergy (Intermediate, Verified 02/27/23 11:37) Gastrointestinal Upset Medication List - Last Reconciled 02/27/23 by Tram Darby MD albuterol sulfate 90 mcg/actuation 1 - 2 puffs PO Q4-6H PRN 30 days amlodipine 10 mg PO DAILY 90 days blood sugar diagnostic (OneTouch Ultra Blue Test Strip) patient to check blood sugar 3 times daily blood sugar diagnostic (FreeStyle Lite Strips) TID prn blood-glucose meter (FreeStyle Lite Meter kit) patient to check blood sugar 3 times daily blood-glucose meter (OneTouch Ultra2 Meter) Patient to check blood sugar 3 times daily famotidine 40 mg PO BEDTIME fentanyl 50 mcg/hr 1 patch transdermal Q48H 30 days insulin glargine (Lantus Solostar U-100 Insulin) 30 units (0.3 mL) subcut ONCE 90 days lancets (FreeStyle Lancets) patient to check blood sugar 3 times daily latanoprost 0.005% 1 drp ophthalmic (eye) BEDTIME lisinopril 40 mg PO DAILY 90 days omeprazole 20 mg PO DAILY ondansetron HCl 4 mg PO ONCE PRN 90 days pen needle, diabetic qd tizanidine 4 mg PO BEDTIME PRN 90 days Tobacco use date assessed: 02/27/23 Fall risk assessment: No Falls in past year Last assessed Fall Risk: 02/27/23 Dental Screening Dental Screen Date: 02/27/23 Did you have a dental visit in the last 12 months?: No Did you have a dental problem in the last 6 months where you did not have access to dental care?: No Was dental information given to patient?: No HPI 4 week fu HPI Details Patient is a 67 year female came in today for her monthly appointment to have medication refill Patient is on fentanyl patch secondary to chronic back pain patient have a history of back surgery herniated disc in cervical spine as well as thoracic area and lumbar area history of failed back surgery. She is complying with the treatment plan, drug contract is up-to-date Patient is aware of side effects. She had a COVID infection last month and since then she has been having recurrent headaches Patient have a history of migraine headaches but they have been coming more frequently since the COVID. Usually she does take ibuprofen which helps resolve the headache but this time it is not helping. I have sent sumatriptan 50 mg tablets patient is to take only 1 in 24 hours. 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 Mother Stomach cancer Social History Housing: House Alcohol intake: never Patient Tobacco Use Status: Never used Tobacco e-Cigarette/Vaping Use: Never Used service: No Current occupational status: disabled Cognitive needs: No Hearing needs: No Vision needs: Yes Questionnaire PHQ-9 Over the last 2 weeks, how often have you been bothered by any of the following problems? 1. Little interest or pleasure in doing things: several days 2. Feeling down, depressed, or hopeless: not at all 3. Trouble falling or staying asleep, or sleeping too much: several days 4. Feeling tired or having little energy: more than half the days 5. Poor appetite or overeating: more than half the days 6. Feeling bad about yourself - or that you are a failure or have let yourself or your family down: not at all 7. Trouble concentrating on things, such as reading the newspaper or watching television: not at all 8. Moving or speaking so slowly that other people could have noticed. Or the opposite - being so fidgety or restless that you have been moving around a lot more than usual: not at all 9. Thoughts that you would be better off or of hurting yourself in some way: not at all Total score: 6 Depression Screening Interpretation: Negative [id number] - PHQ-9 Billing: Yes Source: Developed by Drs. Tommy Graham, Marnie Ford, Sebastien Vaughn and colleagues, with an educational mayito from [employer]. Thrive Questionnaire Date Thrive assessed: 08/07/22 SACHIN-7 AMB Questionnaire SACHIN-7 Date SACHIN - 7 assessed: 08/07/22 Source: Developed by Drs. Tommy Graham, Marnie Ford, Sebastien Vaughn and colleagues, with an educational mayito from [employer]. Review of Systems Const Denies chills and Denies fever(s) ENT Denies epistaxis and Denies nasal discharge Card Denies chest pain Resp Denies chest congestion, Denies cough and Denies hemoptysis GI Denies diarrhea and Denies nausea Skin/Breast Denies rash Neuro Reports no additional complaints Psych Reports no additional complaints Endo Reports no additional complaints Physical exam (Primary Care) Vital Signs: Last Vital Signs Pulse 96 02/27/23 11:40 BP 136/70 02/27/23 11:40 Pulse Ox 100 02/27/23 11:40 Oxygen Delivery Method Room Air 02/27/23 11:40 BMI result Body Mass Index 28.2 Tobacco/Smoking Status: Tobacco use Status Tobacco use date assessed 02/27/23 02/27/23 11:39 Patient Tobacco Use Status Never used Tobacco 02/27/23 11:39 e-Cigarette/Vaping Use Never Used 02/27/23 11:39 Depression Screening Interpretation: Negative Thrive Assessment: Date of Thrive Assessment Date Thrive assessed 08/07/22 02/27/23 11:39 Const General: cooperative, comfortable and no acute distress Orientation/consciousness: patient oriented x3 HENMT Head: Yes normocephalic Eyes General: appearance normal, both eyes and all related structures Neck Neck: Yes supple Resp Effort & Inspection: normal respiratory effort, no cough and no stridor Cardio Rhythm: regular rhythm Heart sounds: S1 normal heart sound present and S2 normal heart sound present Skin General skin exam: turgor normal Neuro General: patient oriented x3, tone normal and moves all extremities Extrem Right lower extremity: no edema Left lower extremity: no edema Assessment and Plan Assessment & Plan (1) Post-COVID syndrome: Code(s): U09.9 - Post COVID-19 condition, unspecified (2) Migraine headache: Code(s): G43.909 - Migraine, unspecified, not intractable, without status migrainosus (3) Radiculitis, lumbosacral: Code(s): M54.17 - Radiculopathy, lumbosacral region (4) HNP (herniated nucleus pulposus), lumbar: Code(s): M51.26 - Other intervertebral disc displacement, lumbar region (5) DJD (degenerative joint disease) of thoracic spine: Code(s): M47.814 - Spondylosis without myelopathy or radiculopathy, thoracic region Qualifiers: Spinal osteoarthritis complication: other spinal osteoarthritis Qualified Code(s): M47.894 - Other spondylosis, thoracic region (6) Failed back syndrome: Comment: uses fentanyl patch & oxycodone Code(s): M96.1 - Postlaminectomy syndrome, not elsewhere classified (7) Radiculitis of right cervical region: Code(s): M54.12 - Radiculopathy, cervical region (8) Muscle spasm: Code(s): M62.838 - Other muscle spasm (9) Herniated nucleus pulposus, cervical: Code(s): M50.20 - Other cervical disc displacement, unspecified cervical region (10) Narcotic dependence: Code(s): F11.20 - Opioid dependence, uncomplicated (11) Pain management: Code(s): R52 - Pain, unspecified Plan Patient is a 67 year female came in today for her monthly appointment to have medication refill Patient is on fentanyl patch secondary to chronic back pain patient have a history of back surgery herniated disc in cervical spine as well as thoracic area and lumbar area history of failed back surgery. She is complying with the treatment plan, drug contract is up-to-date Patient is aware of side effects. She had a COVID infection last month and since then she has been having recurrent headaches Patient have a history of migraine headaches but they have been coming more frequently since the COVID. Usually she does take ibuprofen which helps resolve the headache but this time it is not helping. I have sent sumatriptan 50 mg tablets patient is to take only 1 in 24 hours. Medications: New sumatriptan succinate 50 mg PO ONCE PRN 7 tabs 0RF migraine headache 30 days Refilled fentanyl 50 mcg/hr 1 patch transdermal Q48H 15 ea 0RF 30 days F11.20 - Opioid dependence, uncomplicated, M50.20 - Other cervical disc displacement, unspecified cervical region, M96.1 - Postlaminectomy syndrome, not elsewhere classified, R52 - Pain, unspecified Coding Level of Care Code Est Pt Level 4 (84038) Diagnoses Post-COVID syndrome U09.9 Migraine headache G43.909 Radiculitis, lumbosacral M54.17 HNP (herniated nucleus pulposus), lumbar M51.26 DJD (degenerative joint disease) of thoracic spine M47.894 Spinal osteoarthritis complication: other spinal osteoarthritis Failed back syndrome M96.1 Radiculitis of right cervical region M54.12 Muscle spasm M62.838 Herniated nucleus pulposus, cervical M50.20 Narcotic dependence F11.20 Pain management R52
[2023-02-27 11:40] VITALS: BP 136/70; PULSE 96; O2SAT 100; BMI 28.2
== END 2023-02-27 11:57 | disposition home or self-care (01) ==
PROVIDERS: PCP Internal Medicine; Visit Provider Internal Medicine
DX: U09.9 Post COVID-19 condition, unspecified (principal); G43.909 Migraine, unspecified, not intractable, without status migrainosus; F11.20 Opioid dependence, uncomplicated; M54.17 Radiculopathy, lumbosacral region; M51.26 Other intervertebral disc displacement, lumbar region; M47.894 Other spondylosis, thoracic region; M96.1 Postlaminectomy syndrome, not elsewhere classified; M54.12 Radiculopathy, cervical region; M62.838 Other muscle spasm; M50.20 Other cervical disc displacement, unspecified cervical region; R52 Pain, unspecified
CPT/HCPCS: 99214

== ENCOUNTER 2023-04-05 11:16 | Outpatient (AMB) | payer MEDICARE, MEDICAID, SELFPAY ==
--- NOTE | 2023-04-05 11:22 | A.OFFPC_ITS ---
Vital Signs 3 04/05/23 11:23 Height 5 ft 3 in Weight 161 lb 2 oz BMI 28.5 BP 136/58 L Blood Pressure Location Rt brachial Pulse 94 Pulse Source Pulse Oximeter Pulse Oximetry (%) 98 Oxygen Delivery Method Room Air Intake Visit Reasons: 4 week fu Allergies duloxetine [From Cymbalta] Allergy (Intermediate, Verified 04/05/23 11:22) Gastrointestinal Upset gabapentin Allergy (Intermediate, Verified 04/05/23 11:22) Gastrointestinal Upset milnacipran [From Savella] Allergy (Intermediate, Verified 04/05/23 11:22) Gastrointestinal Upset naloxegol [Movantik] Allergy (Intermediate, Verified 04/05/23 11:22) Gastrointestinal Upset pregabalin [From Lyrica] Allergy (Intermediate, Verified 04/05/23 11:22) Gastrointestinal Upset Medication List - Last Reconciled 04/05/23 by Tram Darby MD albuterol sulfate 90 mcg/actuation 1 - 2 puffs PO Q4-6H PRN 30 days amlodipine 10 mg PO DAILY 90 days blood sugar diagnostic (OneTouch Ultra Blue Test Strip) patient to check blood sugar 3 times daily blood sugar diagnostic (FreeStyle Lite Strips) TID prn blood-glucose meter (FreeStyle Lite Meter kit) patient to check blood sugar 3 times daily blood-glucose meter (OneTouch Ultra2 Meter) Patient to check blood sugar 3 times daily famotidine 40 mg PO BEDTIME fentanyl 50 mcg/hr 1 patch transdermal Q48H 30 days insulin glargine (Lantus Solostar U-100 Insulin) 30 units (0.3 mL) subcut ONCE 90 days lancets (FreeStyle Lancets) patient to check blood sugar 3 times daily latanoprost 0.005% 1 drp ophthalmic (eye) BEDTIME lisinopril 40 mg PO DAILY 90 days omeprazole 20 mg PO DAILY ondansetron HCl 4 mg PO ONCE PRN 90 days pen 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, 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 qd sumatriptan succinate 50 mg PO ONCE PRN 30 days tizanidine 4 mg PO BEDTIME PRN 90 days Tobacco use date assessed: 04/05/23 Fall risk assessment: No Falls in past year Last assessed Fall Risk: 04/05/23 Dental Screening Dental Screen Date: 04/05/23 Did you have a dental visit in the last 12 months?: No Did you have a dental problem in the last 6 months where you did not have access to dental care?: No Was dental information given to patient?: Patient has dentist HPI 4 week fu 2 HPI0 Details Patient is a 67 year female came in today for her monthly appointment to have medication refill Due to cold weather and raining her pain has flared up Patient have a hardware lumbar area she is pointing in that area I have ordered x-ray to further evaluate. I thing it will be a reasonable approach for her to see a stained glass painter also but patient is not interested at this time. Patient is on fentanyl patch secondary to chronic back pain patient Patient also have a chronic pain in her neck She is complying with the treatment plan, drug contract is up-to-date Patient is aware of side effects. Patient will return in 1 month for follow-up [facility] Medical History Asthma Hx of irritable bowel syndrome Pain management Narcotic dependence Herniated nucleus pulposus, cervical Hypertension, essential Muscle spasm 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 Mother Stomach cancer Social History Housing: House Alcohol intake: never Patient Tobacco Use Status: Never used Tobacco e-Cigarette/Vaping Use: Never Used service: No Current occupational status: disabled Cognitive needs: No Hearing needs: No Vision needs: Yes Questionnaire PHQ-9 Over the last 2 weeks, how often have you been bothered by any of the following problems? 1. Little interest or pleasure in doing things: not at all 2. Feeling down, depressed, or hopeless: not at all 3. Trouble falling or staying asleep, or sleeping too much: not at all 4. Feeling tired or having little energy: several days 5. Poor appetite or overeating: several days 6. Feeling bad about yourself - or that you are a failure or have let yourself or your family down: not at all 7. Trouble concentrating on things, such as reading the newspaper or watching television: not at all 8. Moving or speaking so slowly that other people could have noticed. Or the opposite - being so fidgety or restless that you have been moving around a lot more than usual: not at all 9. Thoughts that you would be better off or of hurting yourself in some way: not at all Total score: 2 Depression Screening Interpretation: Negative 70018 - PHQ-9 Billing: Yes Source: Developed by Drs. Tommy Graham, Marnie Ford, Sebastien Vaughn and colleagues, with an educational mayito from [employer]. Thrive Questionnaire Date Thrive assessed: 04/05/23 I am a: Patient What is your living situation today?: I have a steady place to live Within the past 12 months, did the food you bought not last and you didn't have the money to get more?: Never true Within the past 12 months, did you worry whether your food would run out before you got money to buy more?: Never true Do you have trouble paying for medicines?: No Do you have trouble getting transportation to medical appointments?: No Do you have trouble paying your heating and electricity bill?: No Do you have trouble taking care of your child, family member or friend?: No Do you have trouble with day-to-day activities such as bathing, preparing meals, shopping, managing finances, etc.?: No Are you currently unemployed and looking for a job?: No Are you interested in more education?: No AUDIT C Alcohol Use Questionnaire (AUDIT-C) 1. How often do you have a drink containing alcohol?: Never 3. How often do you have six or more drinks on one occasion?: Never Total Score: 0 Score Reviewed/Action Taken: Yes SACHIN-7 AMB Questionnaire SACHIN-7 Date SACHIN - 7 assessed: 04/05/23 Feeling nervous, anxious, or on edge: 0 = Not at all Not being able to stop or control worryin = Not at all Worrying too much about different things: 0 = Not at all Trouble relaxin = Not at all Being so restless that it is hard to sit still: 0 = Not at all Becoming easily annoyed or irritable: 0 = Not at all Feeling afraid as if something awful might happen: 0 = Not at all Total SACHIN-7 score (0-4 normal; 5-9 mild; 10-14 moderate; 15-21 severe): 0 Source: Developed by Drs. Tommy Graham, Marnie Ford, Sebastien Vaughn and colleagues, with an educational mayito from [employer]. SACHIN-7 Assessment Billing SACHIN-7 Assessment Tool: SACHIN-7 Assessment 04929 Review of Systems Const Denies chills and Denies fever(s) ENT Denies epistaxis and Denies nasal discharge Card Denies chest pain Resp Denies chest congestion, Denies cough and Denies hemoptysis GI Denies diarrhea and Denies nausea Skin/Breast Denies rash Neuro Reports no additional complaints Psych Reports no additional complaints Endo Reports no additional complaints Physical exam (Primary Care) Vital Signs: Last Vital Signs Pulse 94 04/05/23 11:23 BP 136/58 L 04/05/23 11:23 Pulse Ox 98 04/05/23 11:23 Oxygen Delivery Method Room Air 04/05/23 11:23 BMI result Body Mass Index 28.5 Tobacco/Smoking Status: Tobacco use Status Tobacco use date assessed 04/05/23 04/05/23 11:28 Patient Tobacco Use Status Never used Tobacco 04/05/23 11:28 e-Cigarette/Vaping Use Never Used 04/05/23 11:28 PHQ-9: PHQ-9 Score PHQ-9: Total score 2 04/05/23 11:39 Depression Screening Interpretation: Negative Thrive Assessment: Date of Thrive Assessment Date Thrive assessed 04/05/23 04/05/23 11:39 Const General: cooperative and no acute distress Orientation/consciousness: patient oriented x3 HENMT Head: Yes normocephalic Eyes General: appearance normal, both eyes and all related structures Resp Effort & Inspection: normal respiratory effort, no cough and no stridor Cardio Rhythm: regular rhythm Heart sounds: S1 normal heart sound present and S2 normal heart sound present Back/Spine/Pelvis Back/spine/pelvis image: 2 1. Site of pain Skin General skin exam: turgor normal Neuro Other: Motor sensory intact lower extremity gait is stable General: patient oriented x3, tone normal and moves all extremities Extrem Right lower extremity: no edema Left lower extremity: no edema Assessment and Plan Assessment & Plan (1) Radiculitis, lumbosacral: Code(s): M54.17 - Radiculopathy, lumbosacral region (2) HNP (herniated nucleus pulposus), lumbar: Code(s): M51.26 - Other intervertebral disc displacement, lumbar region (3) DJD (degenerative joint disease) of thoracic spine: Code(s): M47.814 - Spondylosis without myelopathy or radiculopathy, thoracic region Qualifiers: Spinal osteoarthritis complication: other spinal osteoarthritis Qualified Code(s): M47.894 - Other spondylosis, thoracic region (4) Failed back syndrome: Comment: uses fentanyl patch & oxycodone Code(s): M96.1 - Postlaminectomy syndrome, not elsewhere classified (5) Radiculitis of right cervical region: Code(s): M54.12 - Radiculopathy, cervical region (6) Muscle spasm: Code(s): M62.838 - Other muscle spasm (7) Herniated nucleus pulposus, cervical: Code(s): M50.20 - Other cervical disc displacement, unspecified cervical region (8) Narcotic dependence: Code(s): F11.20 - Opioid dependence, uncomplicated (9) Pain management: Code(s): R52 - Pain, unspecified Plan Patient is a 67 year female came in today for her monthly appointment to have medication refill Due to cold weather and raining her pain has flared up Patient have a hardware lumbar area she is pointing in that area I have ordered x-ray to further evaluate. I thing it will be a reasonable approach for her to see a stained glass painter also but patient is not interested at this time. Patient is on fentanyl patch secondary to chronic back pain patient Patient also have a chronic pain in her neck She is complying with the treatment plan, drug contract is up-to-date Patient is aware of side effects. Patient will return in 1 month for follow-up Orders: Orders 2 XR lumbar spine 2-3V Today M54.17 - Radiculopathy, lumbosacral region Medications: Refilled 2 fentanyl 50 mcg/hr 1 patch transdermal Q48H 15 ea 0RF 30 days F11.20 - Opioid dependence, uncomplicated, M50.20 - Other cervical disc displacement, unspecified cervical region, M96.1 - Postlaminectomy syndrome, not elsewhere classified, R52 - Pain, unspecified Coding Level of Care Code Est Pt Level 3 (90507) Diagnoses Radiculitis, lumbosacral M54.17 HNP (herniated nucleus pulposus), lumbar M51.26 Other osteoarthritis of spine, thoracic region M47.894 Spinal osteoarthritis complication: other spinal osteoarthritis Failed back syndrome M96.1 Radiculitis of right cervical region M54.12 Muscle spasm M62.838 Herniated nucleus pulposus, cervical M50.20 Narcotic dependence F11.20 Pain management R52 Additional Codes SACHIN-7 Assessment Billing - SACHIN-7 Assessment Tool: SACHIN-7 Assessment [id number] ([id number])
[2023-04-05 11:23] VITALS: BP 136/58; PULSE 94; O2SAT 98; BMI 28.5
== END 2023-04-05 11:42 | disposition home or self-care (01) ==
PROVIDERS: PCP Internal Medicine; Visit Provider Internal Medicine
DX: M54.17 Radiculopathy, lumbosacral region (principal); M51.26 Other intervertebral disc displacement, lumbar region; F11.20 Opioid dependence, uncomplicated; M47.894 Other spondylosis, thoracic region; M54.12 Radiculopathy, cervical region; M96.1 Postlaminectomy syndrome, not elsewhere classified; M62.838 Other muscle spasm; M50.20 Other cervical disc displacement, unspecified cervical region; R52 Pain, unspecified
CPT/HCPCS: 99213

== ENCOUNTER 2023-04-10 09:45 | Outpatient (REF) | payer MEDICARE, MEDICAID, SELFPAY | END 2023-04-10 09:46 | disposition home or self-care (01) | LOC: HO.LAB 09:45 | PROVIDERS: PCP Internal Medicine; Visit Provider Internal Medicine | DX: M54.17 Radiculopathy, lumbosacral region (principal) | CPT/HCPCS: 72100 ==

== ENCOUNTER 2023-05-08 14:35 | Outpatient (AMB) | payer MEDICARE, MEDICAID, SELFPAY ==
--- NOTE | 2023-05-08 14:35 | A.OFFPC_ITS ---
Vital Signs 3 05/08/23 14:36 Height 5 ft 3 in Weight 163 lb 5 oz BMI 28.9 BP 148/62 H Blood Pressure Location Rt brachial Position Sitting Pulse 79 Pulse Source Pulse Oximeter Pulse Oximetry (%) 98 Oxygen Delivery Method Room Air Intake Visit Reasons: one month fu Allergies duloxetine [From Cymbalta] Allergy (Intermediate, Verified 05/08/23 14:38) Gastrointestinal Upset gabapentin Allergy (Intermediate, Verified 05/08/23 14:38) Gastrointestinal Upset milnacipran [From Savella] Allergy (Intermediate, Verified 05/08/23 14:38) Gastrointestinal Upset naloxegol [Movantik] Allergy (Intermediate, Verified 05/08/23 14:38) Gastrointestinal Upset pregabalin [From Lyrica] Allergy (Intermediate, Verified 05/08/23 14:38) Gastrointestinal Upset Medication List - Last Reconciled 05/08/23 by Tram Darby MD albuterol sulfate 90 mcg/actuation 1 - 2 puffs PO Q4-6H PRN 30 days amlodipine 10 mg PO DAILY 90 days blood sugar diagnostic (OneTouch Ultra Blue Test Strip) patient to check blood sugar 3 times daily blood sugar diagnostic (FreeStyle Lite Strips) TID prn blood-glucose meter (FreeStyle Lite Meter kit) patient to check blood sugar 3 times daily blood-glucose meter (OneTouch Ultra2 Meter) Patient to check blood sugar 3 times daily famotidine 40 mg PO BEDTIME fentanyl 50 mcg/hr 1 patch transdermal Q48H 30 days insulin glargine (Lantus Solostar U-100 Insulin) 30 units (0.3 mL) subcut ONCE 90 days lancets (FreeStyle Lancets) patient to check blood sugar 3 times daily latanoprost 0.005% 1 drp ophthalmic (eye) BEDTIME lisinopril 40 mg PO DAILY 90 days omeprazole 20 mg PO DAILY ondansetron HCl 4 mg PO ONCE PRN 90 days 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, 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 qd sumatriptan succinate 50 mg PO ONCE PRN 30 days tizanidine 4 mg PO BEDTIME PRN 90 days Tobacco use date assessed: 05/08/23 Fall risk assessment: No Falls in past year Last assessed Fall Risk: 05/08/23 Dental Screening Dental Screen Date: 05/08/23 Did you have a dental visit in the last 12 months?: No Did you have a dental problem in the last 6 months where you did not have access to dental care?: No Was dental information given to patient?: Patient has dentist HPI one month fu 2 HPI0 Details Patient is a 67 year female came in today for her monthly appointment to have medication refill Patient is established with Dr. Deras but has not seen him in 1 year Patient says that couple of time her appointment was changed and then 1 time she forgot Now she has appointment in July. She is complaining of burning sensation in epigastric, I see that she is already on omeprazole and famotidine I have sent Carafate tablets to be taken b.i.d. as needed Patient have a hardware lumbar area pain is controlled with help of fentanyl patch. She also have a chronic neck pain and on going back muscle spasms She is complying with the treatment plan, drug contract is up-to-date Patient is aware of side effects. Patient will return in 1 month for follow-up [facility] Medical History Asthma Hx of irritable bowel syndrome Pain management Narcotic dependence Herniated nucleus pulposus, cervical Hypertension, essential Muscle spasm 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 Mother Stomach cancer Social History Housing: House Alcohol intake: never Patient Tobacco Use Status: Never used Tobacco e-Cigarette/Vaping Use: Never Used service: No Current occupational status: disabled Cognitive needs: No Hearing needs: No Vision needs: Yes Questionnaire Thrive Questionnaire Date Thrive assessed: 04/05/23 AUDIT C Alcohol Use Questionnaire (AUDIT-C) 1. How often do you have a drink containing alcohol?: Never 3. How often do you have six or more drinks on one occasion?: Never Total Score: 0 Score Reviewed/Action Taken: Yes SACHIN-7 AMB Questionnaire SACHIN-7 Date SACHIN - 7 assessed: 04/05/23 Source: Developed by Drs. Tommy Graham, Marnie Fodr, Sebastien Vaughn and colleagues, with an educational mayito from [employer]. Review of Systems Const Denies chills and Denies fever(s) ENT Denies epistaxis and Denies nasal discharge Card Denies chest pain Resp Denies chest congestion, Denies cough and Denies hemoptysis GI Denies diarrhea Skin/Breast Denies rash Neuro Reports no additional complaints Psych Reports no additional complaints Endo Reports no additional complaints Physical exam (Primary Care) Vital Signs: Last Vital Signs Pulse 79 05/08/23 14:36 BP 148/62 H 05/08/23 14:36 Pulse Ox 98 05/08/23 14:36 Oxygen Delivery Method Room Air 05/08/23 14:36 BMI result Body Mass Index 28.9 Tobacco/Smoking Status: Tobacco use Status Tobacco use date assessed 05/08/23 05/08/23 14:40 Patient Tobacco Use Status Never used Tobacco 05/08/23 14:40 e-Cigarette/Vaping Use Never Used 05/08/23 14:40 Thrive Assessment: Date of Thrive Assessment Date Thrive assessed 04/05/23 05/08/23 14:40 Const General: cooperative, comfortable and no acute distress Orientation/consciousness: patient oriented x3 HENMT Head: Yes normocephalic Eyes General: appearance normal, both eyes and all related structures Neck Neck: Yes supple Resp Effort & Inspection: normal respiratory effort, no cough and no stridor Cardio Rhythm: regular rhythm Heart sounds: S1 normal heart sound present and S2 normal heart sound present GI Abdomen image: 2 1. Epigastric burning sensation, bowel sounds positive no guarding no rebound Skin General skin exam: turgor normal Neuro General: patient oriented x3, tone normal and moves all extremities Extrem Right lower extremity: no edema Left lower extremity: no edema Assessment and Plan Assessment & Plan (1) Narcotic dependence: Code(s): F11.20 - Opioid dependence, uncomplicated (2) Radiculitis, lumbosacral: Code(s): M54.17 - Radiculopathy, lumbosacral region (3) HNP (herniated nucleus pulposus), lumbar: Code(s): M51.26 - Other intervertebral disc displacement, lumbar region (4) DJD (degenerative joint disease) of thoracic spine: Code(s): M47.814 - Spondylosis without myelopathy or radiculopathy, thoracic region Qualifiers: Spinal osteoarthritis complication: other spinal osteoarthritis Qualified Code(s): M47.894 - Other spondylosis, thoracic region (5) Failed back syndrome: Comment: uses fentanyl patch & oxycodone Code(s): M96.1 - Postlaminectomy syndrome, not elsewhere classified (6) Radiculitis of right cervical region: Code(s): M54.12 - Radiculopathy, cervical region (7) Muscle spasm: Code(s): M62.838 - Other muscle spasm (8) Herniated nucleus pulposus, cervical: Code(s): M50.20 - Other cervical disc displacement, unspecified cervical region (9) Pain management: Code(s): R52 - Pain, unspecified (10) Epigastric burning sensation: Code(s): R10.13 - Epigastric pain Plan Patient is a 67 year female came in today for her monthly appointment to have medication refill Patient is established with Dr. Deras but has not seen him in 1 year Patient says that couple of time her appointment was changed and then 1 time she forgot Now she has appointment in July. She is complaining of burning sensation in epigastric, I see that she is already on omeprazole and famotidine I have sent Carafate tablets to be taken b.i.d. as needed Patient have a hardware lumbar area pain is controlled with help of fentanyl patch. She also have a chronic neck pain and on going back muscle spasms She is complying with the treatment plan, drug contract is up-to-date Patient is aware of side effects. Patient will return in 1 month for follow-up Medications: New 2 sucralfate (Carafate) 1 g PO BID 60 tabs 0RF Refilled 2 fentanyl 50 mcg/hr 1 patch transdermal Q48H 15 ea 0RF 30 days F11.20 - Opioid dependence, uncomplicated, M50.20 - Other cervical disc displacement, unspecified cervical region, M96.1 - Postlaminectomy syndrome, not elsewhere classified, R52 - Pain, unspecified Coding Level of Care Code Est Pt Level 4 (14200) Diagnoses Narcotic dependence F11.20 Radiculitis, lumbosacral M54.17 HNP (herniated nucleus pulposus), lumbar M51.26 Other osteoarthritis of spine, thoracic region M47.894 Spinal osteoarthritis complication: other spinal osteoarthritis Failed back syndrome M96.1 Radiculitis of right cervical region M54.12 Muscle spasm M62.838 Herniated nucleus pulposus, cervical M50.20 Pain management R52 Epigastric burning sensation R10.13
[2023-05-08 14:36] VITALS: BP 148/62; PULSE 79; O2SAT 98; BMI 28.9
== END 2023-05-08 14:58 | disposition home or self-care (01) ==
PROVIDERS: PCP Internal Medicine; Visit Provider Internal Medicine
DX: F11.20 Opioid dependence, uncomplicated (principal); M54.17 Radiculopathy, lumbosacral region; M51.26 Other intervertebral disc displacement, lumbar region; M47.894 Other spondylosis, thoracic region; M96.1 Postlaminectomy syndrome, not elsewhere classified; M54.12 Radiculopathy, cervical region; M62.838 Other muscle spasm; M50.20 Other cervical disc displacement, unspecified cervical region; R52 Pain, unspecified; R10.13 Epigastric pain
CPT/HCPCS: 99214

== ENCOUNTER 2023-06-07 13:23 | Outpatient (AMB) | payer MEDICARE, MEDICAID, SELFPAY ==
--- NOTE | 2023-06-07 13:30 | MHC.PC.OV ---
Vital Signs 06/07/23 13:31 Height 5 ft 3 in Weight 160 lb BMI 28.3 BP 128/78 Blood Pressure Location Rt brachial Position Sitting Pulse 74 Pulse Source Pulse Oximeter Pulse Oximetry (%) 96 Oxygen Delivery Method Room Air Intake Visit Reasons: one month fu Allergies duloxetine [From Cymbalta] Allergy (Intermediate, Verified 06/07/23 13:31) Gastrointestinal Upset gabapentin Allergy (Intermediate, Verified 06/07/23 13:31) Gastrointestinal Upset milnacipran [From Savella] Allergy (Intermediate, Verified 06/07/23 13:31) Gastrointestinal Upset naloxegol [Movantik] Allergy (Intermediate, Verified 06/07/23 13:31) Gastrointestinal Upset pregabalin [From Lyrica] Allergy (Intermediate, Verified 06/07/23 13:31) Gastrointestinal Upset Medication List - Last Reconciled 06/07/23 by Tram Darby MD albuterol sulfate 90 mcg/actuation 1 - 2 puffs PO Q4-6H PRN 30 days amlodipine 10 mg PO DAILY 90 days blood sugar diagnostic (OneTouch Ultra Blue Test Strip) patient to check blood sugar 3 times daily blood sugar diagnostic (FreeStyle Lite Strips) TID prn blood-glucose meter (FreeStyle Lite Meter kit) patient to check blood sugar 3 times daily blood-glucose meter (OneTouch Ultra2 Meter) Patient to check blood sugar 3 times daily famotidine 40 mg PO BEDTIME fentanyl 50 mcg/hr 1 patch transdermal Q48H 30 days insulin glargine (Lantus Solostar U-100 Insulin) 30 units (0.3 mL) subcut ONCE 90 days lancets (FreeStyle Lancets) patient to check blood sugar 3 times daily latanoprost 0.005% 1 drp ophthalmic (eye) BEDTIME lisinopril 40 mg PO DAILY 90 days omeprazole 20 mg PO DAILY pen needle, diabetic qd sucralfate (Carafate) 1 g PO BID sumatriptan succinate 50 mg PO ONCE PRN 30 days tizanidine 4 mg PO BEDTIME PRN 90 days Tobacco use date assessed: 06/07/23 Fall risk assessment: 1 Fall in past year Last assessed Fall Risk: 06/07/23 Dental Screening Dental Screen Date: 06/07/23 Did you have a dental visit in the last 12 months?: No Was dental information given to patient?: Patient declined HPI one month fu HPI Details Patient is a 67 year female came in today for her monthly appointment to have medication refill Chronic GERD: Patient is requesting refill on famotidine which I have sent for her 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 She also have a chronic neck pain and on going back muscle spasms During winter season her pain is worsen, she is requesting few tablets of oxycodone for breakthrough pain I have sent 14 She also feel nauseous when she changes her patch and is in need of Zofran Patient is diabetic, medication list reviewed all appropriate refills sent She is complying with the treatment plan, drug contract is up-to-date Patient is aware of side effects. Patient will now return end of July for August refill We will sent July refill without visit [facility] Medical History Asthma Hx of irritable bowel syndrome Pain management Narcotic dependence Herniated nucleus pulposus, cervical Hypertension, essential Muscle spasm 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 Mother Stomach cancer Social History Housing: House Alcohol intake: never Patient Tobacco Use Status: Never used Tobacco e-Cigarette/Vaping Use: Never Used service: No Current occupational status: disabled Cognitive needs: No Hearing needs: No Vision needs: Yes Questionnaire PHQ-9 Over the last 2 weeks, how often have you been bothered by any of the following problems? 1. Little interest or pleasure in doing things: not at all 2. Feeling down, depressed, or hopeless: not at all 3. Trouble falling or staying asleep, or sleeping too much: not at all 4. Feeling tired or having little energy: several days 5. Poor appetite or overeating: not at all 6. Feeling bad about yourself - or that you are a failure or have let yourself or your family down: not at all 7. Trouble concentrating on things, such as reading the newspaper or watching television: not at all 8. Moving or speaking so slowly that other people could have noticed. Or the opposite - being so fidgety or restless that you have been moving around a lot more than usual: not at all 9. Thoughts that you would be better off or of hurting yourself in some way: not at all Total score: 1 Depression Screening Interpretation: Negative Depression Screening Done: Yes 48410 - PHQ-9 Billing: Yes Source: Developed by Drs. Tommy Graham, Marnie Ford, Sebastien Vaughn and colleagues, with an educational mayito from [employer]. Thrive Questionnaire Date Thrive assessed: 04/05/23 SACHIN-7 AMB Questionnaire SACHIN-7 Date SACHIN - 7 assessed: 04/05/23 Source: Developed by Drs. Tommy Graham, Marnie Ford, Sebastien Vaughn and colleagues, with an educational mayito from [employer]. Review of Systems Const Denies chills and Denies fever(s) ENT Denies epistaxis and Denies nasal discharge Card Denies chest pain Resp Denies chest congestion, Denies cough and Denies hemoptysis GI Denies diarrhea and Denies nausea Skin/Breast Denies rash Neuro Reports no additional complaints Psych Reports no additional complaints Endo Reports no additional complaints Physical exam (Primary Care) Vital Signs: Last Vital Signs Pulse 74 06/07/23 13:31 BP 128/78 06/07/23 13:31 Pulse Ox 96 06/07/23 13:31 Oxygen Delivery Method Room Air 06/07/23 13:31 BMI result Body Mass Index 28.3 Tobacco/Smoking Status: Tobacco use Status Tobacco use date assessed 06/07/23 06/07/23 13:32 Patient Tobacco Use Status Never used Tobacco 06/07/23 13:32 e-Cigarette/Vaping Use Never Used 06/07/23 13:32 PHQ-9: PHQ-9 Score PHQ-9: Total score 1 06/07/23 15:17 Depression Screening Interpretation: Negative Thrive Assessment: Date of Thrive Assessment Date Thrive assessed 04/05/23 06/07/23 13:32 Const General: cooperative, comfortable and no acute distress Orientation/consciousness: patient oriented x3 HENMT Head: Yes normocephalic Eyes General: appearance normal, both eyes and all related structures Neck Neck: Yes supple Resp Effort & Inspection: normal respiratory effort, no cough and no stridor Cardio Rhythm: regular rhythm Heart sounds: S1 normal heart sound present and S2 normal heart sound present Skin General skin exam: turgor normal Neuro General: patient oriented x3, tone normal and moves all extremities Extrem Right lower extremity: no edema Left lower extremity: no edema Assessment and Plan Assessment & Plan (1) Narcotic dependence: Code(s): F11.20 - Opioid dependence, uncomplicated (2) Radiculitis, lumbosacral: Code(s): M54.17 - Radiculopathy, lumbosacral region (3) HNP (herniated nucleus pulposus), lumbar: Code(s): M51.26 - Other intervertebral disc displacement, lumbar region (4) DJD (degenerative joint disease) of thoracic spine: Code(s): M47.814 - Spondylosis without myelopathy or radiculopathy, thoracic region Qualifiers: Spinal osteoarthritis complication: other spinal osteoarthritis Qualified Code(s): M47.894 - Other spondylosis, thoracic region (5) Failed back syndrome: Comment: uses fentanyl patch & oxycodone Code(s): M96.1 - Postlaminectomy syndrome, not elsewhere classified (6) Radiculitis of right cervical region: Code(s): M54.12 - Radiculopathy, cervical region (7) Muscle spasm: Code(s): M62.838 - Other muscle spasm (8) Herniated nucleus pulposus, cervical: Code(s): M50.20 - Other cervical disc displacement, unspecified cervical region (9) Pain management: Code(s): R52 - Pain, unspecified (10) Epigastric burning sensation: Code(s): R10.13 - Epigastric pain Plan Patient is a 67 year female came in today for her monthly appointment to have medication refill Chronic GERD: Patient is requesting refill on famotidine which I have sent for her 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 She also have a chronic neck pain and on going back muscle spasms During winter season her pain is worsen, she is requesting few tablets of oxycodone for breakthrough pain I have sent 14 She also feel nauseous when she changes her patch and is in need of Zofran Patient is diabetic, medication list reviewed all appropriate refills sent She is complying with the treatment plan, drug contract is up-to-date Patient is aware of side effects. Patient will now return end of July for August refill We will sent July refill without visit Medications: New ondansetron HCl 4 mg PO ONCE PRN 30 tabs 0RF nausea and vomiting 30 days R11.0 - Nausea oxycodone Partial Fill upon patient request. 5 mg PO ONCE PRN 14 tabs 0RF pain 14 days oxycodone Partial Fill upon patient request. 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
[2023-06-07 13:31] VITALS: BP 128/78; PULSE 74; O2SAT 96; BMI 28.3
== END 2023-06-07 13:50 | disposition home or self-care (01) ==
PROVIDERS: PCP Internal Medicine; Visit Provider Internal Medicine
DX: M54.17 Radiculopathy, lumbosacral region (principal); F11.20 Opioid dependence, uncomplicated; M51.26 Other intervertebral disc displacement, lumbar region; M47.894 Other spondylosis, thoracic region; M96.1 Postlaminectomy syndrome, not elsewhere classified; M54.12 Radiculopathy, cervical region; M62.838 Other muscle spasm; M50.20 Other cervical disc displacement, unspecified cervical region; R52 Pain, unspecified; R10.13 Epigastric pain
CPT/HCPCS: 99214

== ENCOUNTER 2023-08-02 13:26 | Outpatient (AMB) | payer MEDICARE, MEDICAID, SELFPAY ==
--- NOTE | 2023-08-02 13:31 | MHC.PC.OV ---
Vital Signs 08/02/23 13:33 Height 53 ft Weight 161 lb BMI 0.3 BP 134/52 L Blood Pressure Location Lt brachial Position Sitting Pulse 83 Pulse Source Pulse Oximeter Pulse Oximetry (%) 96 Oxygen Delivery Method Room Air Intake Visit Reasons: one month fu Allergies duloxetine [From Cymbalta] Allergy (Intermediate, Verified 08/02/23 13:35) Gastrointestinal Upset gabapentin Allergy (Intermediate, Verified 08/02/23 13:35) Gastrointestinal Upset milnacipran [From Savella] Allergy (Intermediate, Verified 08/02/23 13:35) Gastrointestinal Upset naloxegol [Movantik] Allergy (Intermediate, Verified 08/02/23 13:35) Gastrointestinal Upset pregabalin [From Lyrica] Allergy (Intermediate, Verified 08/02/23 13:35) Gastrointestinal Upset Medication List - Last Reconciled 08/02/23 by Tram Darby MD albuterol sulfate 90 mcg/actuation 1 - 2 puffs PO Q4-6H PRN 30 days amlodipine 10 mg PO DAILY 90 days blood sugar diagnostic (WearYouWantTouch Ultra Blue Test Strip) patient to check blood sugar 3 times daily blood-glucose meter (FreeStyle Lite Meter kit) patient to check blood sugar 3 times daily blood-glucose meter (OneTouch Ultra2 Meter) Patient to check blood sugar 3 times daily famotidine 40 mg PO BEDTIME fentanyl 50 mcg/hr 1 patch transdermal Q48H 30 days insulin glargine (Lantus Solostar U-100 Insulin) 30 units (0.3 mL) subcut DAILY 90 days latanoprost 0.005% 1 drp ophthalmic (eye) BEDTIME lisinopril 40 mg PO DAILY 90 days omeprazole 20 mg PO DAILY ondansetron HCl 4 mg PO ONCE PRN 30 days oxycodone 5 mg PO DAILY PRN 14 days pen needle, diabetic qd pen needle, diabetic qd sucralfate (Carafate) 1 g PO BID sumatriptan succinate 50 mg PO ONCE PRN 30 days tizanidine 4 mg PO BEDTIME PRN 90 days Tobacco use date assessed: 08/02/23 Fall risk assessment: No Falls in past year Last assessed Fall Risk: 08/02/23 Dental Screening Dental Screen Date: 08/02/23 Did you have a dental visit in the last 12 months?: No Did you have a dental problem in the last 6 months where you did not have access to dental care?: No Was dental information given to patient?: No HPI one month fu HPI Details Patient is 67-year-old female came in today for her regular follow-up appointment Patient have a history of insulin-dependent diabetes, fatty liver with elevated liver enzymes and chronic abdominal cramping, currently patient is seeing Dr. Roberts for the management. She has an appointment coming up next week. She has chronic GERD Talked about chronic constipation I think it will be reasonable for her to start taking fiber supplement daily Currently patient is taking magnesium which is helping her move her bowels Patient have failed back syndrome history of surgery lumbar spine, she has lumbar spine stenosis, cervical spine radiculitis degenerated thoracic spine, causing muscle spasms She has hypertension, blood pressure is reasonably controlled today, patient is taking medications as prescribed She is opioid dependent for pain management and is on fentanyl patch and oxycodone few tablets for breakthrough pain Patient is complying with the treatment plan She is aware of side effects of narcotics. 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 Mother Stomach cancer Social History Housing: House Alcohol intake: never Patient Tobacco Use Status: Never used Tobacco e-Cigarette/Vaping Use: Never Used service: No Current occupational status: disabled Cognitive needs: No Hearing needs: No Vision needs: Yes Questionnaire Thrive Questionnaire Date Thrive assessed: 04/05/23 SACHIN-7 AMB Questionnaire SACHIN-7 Date SACHIN - 7 assessed: 04/05/23 Source: Developed by Drs. Tommy Graham, Marnie Ford, Sebastien Vaughn and colleagues, with an educational mayito from [employer]. Review of Systems Const Denies chills and Denies fever(s) ENT Denies epistaxis and Denies nasal discharge Card Denies chest pain Resp Denies chest congestion, Denies cough and Denies hemoptysis GI Denies diarrhea Skin/Breast Denies rash Neuro Reports no additional complaints Psych Reports no additional complaints Endo Reports no additional complaints Physical exam (Primary Care) Vital Signs: Last Vital Signs Pulse 83 08/02/23 13:33 BP 134/52 L 08/02/23 13:33 Pulse Ox 96 08/02/23 13:33 Oxygen Delivery Method Room Air 08/02/23 13:33 BMI result Body Mass Index 0.3 Tobacco/Smoking Status: Tobacco use Status Tobacco use date assessed 08/02/23 08/02/23 13:35 Patient Tobacco Use Status Never used Tobacco 08/02/23 13:33 e-Cigarette/Vaping Use Never Used 08/02/23 13:33 Thrive Assessment: Date of Thrive Assessment Date Thrive assessed 04/05/23 08/02/23 13:33 Const General: cooperative, comfortable and no acute distress Orientation/consciousness: patient oriented x3 HENMT Head: Yes normocephalic Eyes General: appearance normal, both eyes and all related structures Neck Neck: Yes supple Resp Effort & Inspection: normal respiratory effort, no cough and no stridor Cardio Rhythm: regular rhythm Heart sounds: S1 normal heart sound present and S2 normal heart sound present Skin General skin exam: turgor normal Neuro General: patient oriented x3, tone normal and moves all extremities Extrem Right lower extremity: no edema Left lower extremity: no edema Assessment and Plan Assessment & Plan (1) Diabetes 1.5, managed as type 1: Comment: taking lantus insulin Code(s): E13.9 - Other specified diabetes mellitus without complications (2) LFTs abnormal: Comment: hx fatty liver Code(s): R94.5 - Abnormal results of liver function studies (3) Chronic GERD: Code(s): K21.9 - Gastro-esophageal reflux disease without esophagitis (4) Radiculitis of right cervical region: Code(s): M54.12 - Radiculopathy, cervical region (5) DJD (degenerative joint disease) of thoracic spine: Code(s): M47.814 - Spondylosis without myelopathy or radiculopathy, thoracic region Qualifiers: Spinal osteoarthritis complication: other spinal osteoarthritis Qualified Code(s): M47.894 - Other spondylosis, thoracic region (6) Failed back syndrome: Comment: uses fentanyl patch & oxycodone Code(s): M96.1 - Postlaminectomy syndrome, not elsewhere classified (7) Muscle spasm: Code(s): M62.838 - Other muscle spasm (8) Hypertension, essential: Code(s): I10 - Essential (primary) hypertension (9) Narcotic dependence: Code(s): F11.20 - Opioid dependence, uncomplicated (10) Pain management: Code(s): R52 - Pain, unspecified (11) Lipid disorder: Code(s): E78.9 - Disorder of lipoprotein metabolism, unspecified (12) Spinal stenosis, lumbar: Code(s): M48.061 - Spinal stenosis, lumbar region without neurogenic claudication Qualifiers: Neurogenic claudication status: with neurogenic claudication Qualified Code(s): M48.062 - Spinal stenosis, lumbar region with neurogenic claudication (13) Sacroiliitis: Code(s): M46.1 - Sacroiliitis, not elsewhere classified (14) FDC (current) use of insulin: Code(s): Z79.4 - terminal operations manager (current) use of insulin (15) Migraine headache: Code(s): G43.909 - Migraine, unspecified, not intractable, without status migrainosus Qualifiers: Migraine type: unspecified Status migrainosus presence: without status migrainosus Intractability: intractable Qualified Code(s): G43.919 - Migraine, unspecified, intractable, without status migrainosus Plan Patient is 67-year-old female came in today for her regular follow-up appointment Patient have a history of insulin-dependent diabetes, fatty liver with elevated liver enzymes and chronic abdominal cramping, currently patient is seeing Dr. Roberts for the management. She has an appointment coming up next week. She has chronic GERD Talked about chronic constipation I think it will be reasonable for her to start taking fiber supplement daily Currently patient is taking magnesium which is helping her move her bowels Patient have failed back syndrome history of surgery lumbar spine, she has lumbar spine stenosis, cervical spine radiculitis degenerated thoracic spine, causing muscle spasms She has hypertension, blood pressure is reasonably controlled today, patient is taking medications as prescribed She is opioid dependent for pain management and is on fentanyl patch and oxycodone few tablets for breakthrough pain Patient is complying with the treatment plan She is aware of side effects of narcotics. Lipid disorder managed with the help of lipid medication Patient is due for labs today Migraine headache stable Regular follow-up every 3 months and monthly visit for narcotic medication refill Orders: Orders Complete Blood Count Auto Diff Today E13.9 - Other specified diabetes mellitus without complications, E78.9 - Disorder of lipoprotein metabolism, unspecified, F11.20 - Opioid dependence, uncomplicated, G43.909 - Migraine, unspecified, not intractable, without status migrainosus, I10 - Essential (primary) hypertension, K21.9 - Gastro-esophageal reflux disease without esophagitis, M46.1 - Sacroiliitis, not elsewhere classified, M47.814 - Spondylosis without myelopathy or radiculopathy, thoracic region, M48.061 - Spinal stenosis, lumbar region without neurogenic claudication, M54.12 - Radiculopathy, cervical region, M62.838 - Other muscle spasm, M96.1 - Postlaminectomy syndrome, not elsewhere classified, R52 - Pain, unspecified, R94.5 - Abnormal results of liver function studies, Z79.4 - terminal operations manager (current) use of insulin Microalbumin, Random (w Creat) Today E13.9 - Other specified diabetes mellitus without complications, E78.9 - Disorder of lipoprotein metabolism, unspecified, F11.20 - Opioid dependence, uncomplicated, G43.909 - Migraine, unspecified, not intractable, without status migrainosus, I10 - Essential (primary) hypertension, K21.9 - Gastro-esophageal reflux disease without esophagitis, M46.1 - Sacroiliitis, not elsewhere classified, M47.814 - Spondylosis without myelopathy or radiculopathy, thoracic region, M48.061 - Spinal stenosis, lumbar region without neurogenic claudication, M54.12 - Radiculopathy, cervical region, M62.838 - Other muscle spasm, M96.1 - Postlaminectomy syndrome, not elsewhere classified, R52 - Pain, unspecified, R94.5 - Abnormal results of liver function studies, Z79.4 - terminal operations manager (current) use of insulin Hemoglobin A1c Today E13.9 - Other specified diabetes mellitus without complications, E78.9 - Disorder of lipoprotein metabolism, unspecified, F11.20 - Opioid dependence, uncomplicated, G43.909 - Migraine, unspecified, not intractable, without status migrainosus, I10 - Essential (primary) hypertension, K21.9 - Gastro-esophageal reflux disease without esophagitis, M46.1 - Sacroiliitis, not elsewhere classified, M47.814 - Spondylosis without myelopathy or radiculopathy, thoracic region, M48.061 - Spinal stenosis, lumbar region without neurogenic claudication, M54.12 - Radiculopathy, cervical region, M62.838 - Other muscle spasm, M96.1 - Postlaminectomy syndrome, not elsewhere classified, R52 - Pain, unspecified, R94.5 - Abnormal results of liver function studies, Z79.4 - terminal operations manager (current) use of insulin Comprehensive Met. Panel Today E13.9 - Other specified diabetes mellitus without complications, E78.9 - Disorder of lipoprotein metabolism, unspecified, F11.20 - Opioid dependence, uncomplicated, G43.909 - Migraine, unspecified, not intractable, without status migrainosus, I10 - Essential (primary) hypertension, K21.9 - Gastro-esophageal reflux disease without esophagitis, M46.1 - Sacroiliitis, not elsewhere classified, M47.814 - Spondylosis without myelopathy or radiculopathy, thoracic region, M48.061 - Spinal stenosis, lumbar region without neurogenic claudication, M54.12 - Radiculopathy, cervical region, M62.838 - Other muscle spasm, M96.1 - Postlaminectomy syndrome, not elsewhere classified, R52 - Pain, unspecified, R94.5 - Abnormal results of liver function studies, Z79.4 - FDC (current) use of insulin LDL Cholesterol Direct Today E13.9 - Other specified diabetes mellitus without complications, E78.9 - Disorder of lipoprotein metabolism, unspecified, F11.20 - Opioid dependence, uncomplicated, G43.909 - Migraine, unspecified, not intractable, without status migrainosus, I10 - Essential (primary) hypertension, K21.9 - Gastro-esophageal reflux disease without esophagitis, M46.1 - Sacroiliitis, not elsewhere classified, M47.814 - Spondylosis without myelopathy or radiculopathy, thoracic region, M48.061 - Spinal stenosis, lumbar region without neurogenic claudication, M54.12 - Radiculopathy, cervical region, M62.838 - Other muscle spasm, M96.1 - Postlaminectomy syndrome, not elsewhere classified, R52 - Pain, unspecified, R94.5 - Abnormal results of liver function studies, Z79.4 - terminal operations manager (current) use of insulin Medications: Refilled tizanidine 4 mg PO BEDTIME 90 days PRN 90 tabs 1RF for muscle spasm M62.838 - Other muscle spasm ondansetron HCl 4 mg PO ONCE 30 days PRN 30 tabs 0RF nausea and vomiting R11.0 - Nausea fentanyl 50 mcg/hr 1 patch transdermal Q48H 30 days 15 ea 0RF F11.20 - Opioid dependence, uncomplicated, M50.20 - Other cervical disc displacement, unspecified cervical region, M96.1 - Postlaminectomy syndrome, not elsewhere classified, R52 - Pain, unspecified oxycodone Partial Fill upon patient request. 5 mg PO DAILY 14 days PRN 14 tabs 0RF pain Coding Level of Care Code Est Pt Level 4 (91273) Diagnoses Diabetes 1.5, managed as type 1 E13.9 LFTs abnormal R94.5 Chronic GERD K21.9 Radiculitis of right cervical region M54.12 Other osteoarthritis of spine, thoracic region M47.894 Spinal osteoarthritis complication: other spinal osteoarthritis Failed back syndrome M96.1 Muscle spasm M62.838 Hypertension, essential I10 Narcotic dependence F11.20 Pain management R52 Lipid disorder E78.9 Spinal stenosis of lumbar region with neurogenic claudication M48.062 Neurogenic claudication status: with neurogenic claudication Sacroiliitis M46.1 FDC (current) use of insulin Z79.4 Intractable migraine without status migrainosus, unspecified migraine type G43.919 Migraine type: unspecified Status migrainosus presence: without status migrainosus Intractability: intractable
[2023-08-02 13:33] VITALS: BP 134/52; PULSE 83; O2SAT 96
== END 2023-08-02 13:51 | disposition home or self-care (01) ==
PROVIDERS: PCP Internal Medicine; Visit Provider Internal Medicine
DX: E13.9 Other specified diabetes mellitus without complications (principal); F11.20 Opioid dependence, uncomplicated; Z79.4 Long term (current) use of insulin; M46.1 Sacroiliitis, not elsewhere classified; I10 Essential (primary) hypertension; R94.5 Abnormal results of liver function studies; K21.9 Gastro-esophageal reflux disease without esophagitis; M54.12 Radiculopathy, cervical region; M47.894 Other spondylosis, thoracic region; M96.1 Postlaminectomy syndrome, not elsewhere classified; M62.838 Other muscle spasm; R52 Pain, unspecified
CPT/HCPCS: 99214

== ENCOUNTER 2023-08-02 13:52 | Outpatient (REF) | payer MEDICARE, MEDICAID, SELFPAY ==
[2023-08-02 16:27] LABS: Basophils Percent Auto 0.5 % (0-2); Eosinophils Absolute Auto 0.1 X10*3/uL (0.0-0.4); Eosinophils Percent Auto 1.3 % (0-4); Imm Gran Abs Auto 0.03 X10*3/uL (0.00-0.03); Imm Gran Pct Auto 0.4 % (0.0-0.4); Lymphocytes Absolute Auto 1.6 X10*3/uL (1.2-4.9); Lymphocytes Percent Auto 20.2 % (20-40); MANUAL DIFF FLAG SCAN; Mean Corpuscular HGB Conc 31.7 g/dl (31.0-35.0); Mean Corpuscular Hemoglobin 28.9 pg (27.0-33.0); Mean Corpuscular Volume 91.1 fL (80.0-98.0); Monocytes Absolute Auto 0.5 X10*3/uL (0.1-1.2); Monocytes Percent Auto 6.7 % (2-11); Neutrophils Absolute Auto 5.6 x10*3/uL (2.0-8.3); Neutrophils Percent Auto 70.9 % (45-73); PLT CLUMP 1; Red Cell Distribution Width 13.6 % (11.0-16.0); SCAN SMEAR FLAG 1
[2023-08-02 16:34] LABS: Estimated Average Glucose 163 mg/dL; Hemoglobin A1c % 7.3 % (<6.0)
[2023-08-02 16:44] LABS: Alanine Aminotransferase 108 U/L (0-31); Albumin Level 4.1 g/dL (3.5-5.0); Alkaline Phosphatase 429 U/L (39-117); Anion Gap 18 (12-20); Aspartate Amino Transferase 99 U/L (5-31); Bilirubin Total 0.5 mg/dL (0.0-1.0); Blood Urea Nitrogen 17 mg/dL (9-16); Calcium 9.7 mg/dL (8.4-10.2); Carbon Dioxide 24 mmol/L (22-29); Chloride 101 mmol/L (96-108); Estimated Glomerular Filt Rate 54; Glucose Random 269 mg/dL (60-115); Potassium 4.5 mmol/L (3.3-5.1); Sodium 138 mmol/L (135-145); Total Protein 8.1 g/dL (6.5-8.0)
[2023-08-02 16:49] LABS: White Blood Count 7.9 X10*3/uL (4.8-10.8)
[2023-08-02 16:51] LABS: Platelet Count 160 X10*3/uL (160-400)
[2023-08-02 16:52] LABS: SLIDE REVIEW VERIFIED
[2023-08-02 16:57] LABS: Creatinine Urine 108.25 mg/dL; Microalbumin Urine < 5.0 mg/L
[2023-08-03 11:58] LABS: LDL Cholesterol Direct 124 mg/dL (<100)
== END 2023-08-02 13:53 | disposition home or self-care (01) ==
LOC: HO.HMGCLDS 13:52
PROVIDERS: PCP Internal Medicine; Visit Provider Internal Medicine
DX: R94.5 Abnormal results of liver function studies (principal); K21.9 Gastro-esophageal reflux disease without esophagitis; I10 Essential (primary) hypertension; F11.20 Opioid dependence, uncomplicated; E78.9 Disorder of lipoprotein metabolism, unspecified; G43.909 Migraine, unspecified, not intractable, without status migrainosus; E13.9 Other specified diabetes mellitus without complications; Z79.4 Long term (current) use of insulin
CPT/HCPCS: 36415; 80053; 82043; 82570; 83036; 83721; 85025

== ENCOUNTER 2023-08-04 14:24 | Emergency (ER) | payer MEDICARE, MEDICAID, SELFPAY ==
--- NOTE | ~2023-08-04 | CT_ITS ---
CT HEAD WITHOUT IV CONTRAST INDICATION: Headache for one week. COMPARISON: None recently available. TECHNIQUE: Multidetector CT acquisitions of the head was obtained without IV contrast. This CT examination was performed using dose optimization techniques as appropriate, variously including the following: *Automated exposure control *Adjustment of mA and/or kV according to patient size (this includes techniques or standardized protocols for targeted exams where dose is matched to indication/reason for exam; i.e. extremities or head) *Use of iterative reconstruction technique FINDINGS: There is no intracranial hemorrhage, hydrocephalus, extra-axial surface collection, midline shift, or other herniation pattern. Partially empty sella. Incidental dural ossification along the anterior margin of the right middle cranial fossa. Daigle to white matter differentiation is diffusely maintained without evidence of an evolved acute territorial infarct. The basilar cisterns are preserved. No significant soft tissue abnormality. No acute osseous abnormality. The paranasal sinuses and the mastoid air cells are well aerated. Degenerative changes involving the TMJs bilaterally appear CT/CT head/brain wo IV con IMPRESSION: No acute intracranial abnormality. Partially empty sella.
[2023-08-04 14:32] VITALS: BP 131/78; PULSE 93; RESP 18; TEMP 37; O2SAT 95; BMI 27.5
--- NOTE | 2023-08-04 14:36 | ECG_ITS ---
Test Reason : FARHAT Blood Pressure : / mmHG Vent. Rate : 089 BPM Atrial Rate : 089 BPM P-R Int : 138 ms QRS Dur : 078 ms QT Int : 350 ms P-R-T Axes : 051 034 043 degrees QTc Int : 425 ms Normal sinus rhythm with sinus arrhythmia Normal ECG When compared with ECG of 12-FEB-2010 16:05, No significant change was found Referred By: Charlie Brown Electronically Signed By:SHERRON HARP MD
--- NOTE | 2023-08-04 14:42 | ED.GENADULT ---
HPI - General Adult General Chief complaint: Headache Stated complaint: Headache 1 week Time Seen by Provider: 08/04/23 16:22 Source: patient Mode of arrival: ambulatory Limitations: no limitations History of Present Illness HPI narrative: Patient with history of migraine headaches complaining of generalized diffuse headache for last 1 week tried ibuprofen without no light sensitivity no fever no nausea no focal deficit balance normal Related Data Home Medications Medication Instructions Recorded Confirmed latanoprost 0.005 % eye drops 1 drp ophthalmic (eye) BEDTIME 04/29/20 08/02/23 omeprazole 20 mg capsule,delayed 20 mg PO DAILY heartburn 04/29/20 08/02/23 release Previous Rx's Medication Instructions Recorded blood-glucose meter ([employer] Incyle #1 ea 01/04/21 Lite Meter kit) blood sugar diagnostic (OneTouch #100 ea 01/19/21 Ultra Blue Test Strip) blood-glucose meter (OneTouch #1 ea 01/19/21 Ultra2 Meter) albuterol sulfate 90 mcg/actuation 1 - 2 puff PO Q4-6H PRN 06/08/22 aerosol inhaler respiratory symptoms 30 days #8.5 grams lisinopril 40 mg tablet 40 mg PO DAILY 90 days #90 tabs 09/05/22 sucralfate 1 gram tablet (Carafate) 1 g PO BID #60 tabs 05/08/23 pen needle, diabetic 31 gauge x #100 ea 06/07/2309/20 amlodipine 10 mg tablet 10 mg PO DAILY 90 days #90 tabs 06/21/23 famotidine 40 mg tablet 40 mg PO BEDTIME #90 tabs 06/21/23 sumatriptan succinate 50 mg tablet 50 mg PO ONCE PRN migraine 06/21/23 headache 30 days #10 tabs pen needle, diabetic 31 gauge x #100 ea 06/22/2309/20 insulin glargine 100 unit/mL (3 30 unit (0.3 mL) subcut DAILY 90 06/25/23 mL) subcutaneous pen ( #27 mL Solostar U-100 Insulin) fentanyl 50 mcg/hr transdermal 1 patch transdermal Q48H 30 days 08/02/23 patch #15 ea ondansetron HCl 4 mg tablet 4 mg PO ONCE PRN nausea and 08/02/23 vomiting 30 days #30 tabs oxycodone 5 mg tablet 5 mg PO DAILY PRN pain 14 days #14 08/02/23 tabs tizanidine 4 mg tablet 4 mg PO BEDTIME PRN for muscle 08/02/23 spasm 90 days #90 tabs gainfakitd-nazyaokjihsxs-jfphvflc 1 tab PO Q6H PRN haeadace #20 tabs 08/04/23 50 mg-325 mg-40 mg tablet Allergies Allergy/AdvReac Type Severity Reaction Status Date / Time duloxetine [From Cymbalta] Allergy Intermediate Gastrointestinal Verified 08/04/23 14:36 Upset gabapentin Allergy Intermediate Gastrointestinal Verified 08/04/23 14:36 Upset milnacipran [From Savella] Allergy Intermediate Gastrointestinal Verified 08/04/23 14:36 Upset naloxegol [Movantik] Allergy Intermediate Gastrointestinal Verified 08/04/23 14:36 Upset pregabalin [From Lyrica] Allergy Intermediate Gastrointestinal Verified 08/04/23 14:36 Upset Review of Systems Review of Systems: Yes all other systems are reviewed and are negative PMFSH Past Medical History Medical History Asthma Hx of irritable bowel syndrome Pain management Narcotic dependence Herniated nucleus pulposus, cervical Hypertension, essential Muscle spasm Failed back syndrome DJD (degenerative joint disease) of thoracic spine Radiculitis of right cervical region Chronic GERD LFTs abnormal Diabetes 1.5, managed as type 1 Surgical History History of cervical spinal surgery History of lumbar surgery History of esophagogastroduodenoscopy History of colonoscopy History of esophagogastroduodenoscopy History of hysterectomy with oophorectomy Hx of cholecystectomy Family History Family History Father No problems noted. Mother Stomach cancer Social History Social History Housing: House Alcohol intake: never Patient Tobacco Use Status: Never used Tobacco Smoked in Last 30 Days: No e-Cigarette/Vaping Use: Never Used Use of substances other than those prescribed or required for medical reasons: No Advance Directives: No Advance Directives Information Provided: No service: No Current occupational status: disabled Cognitive needs: No Hearing needs: No Vision needs: Yes Physical Exam ED Vital Signs: Vital Signs - 24 hr 08/04/23 14:32 08/04/23 16:27 08/04/23 18:19 Temperature 98.6 F 98.3 F Pulse Rate 93 82 80 Respiratory Rate 18 16 16 Blood Pressure 131/78 132/74 114/65 Pulse Oximetry 95 99 95 Oxygen Delivery Method Room Air Room Air Room Air BMI result Body Mass Index 27.5 Appearance: Alert. Oriented X3. No acute distress. Eyes: PERRLA, No Nystagmus ENT: Pharynx normal. Oral Mucosa moist your no temporal artery tenderness Neck: Normal inspection. Neck supple. CVS: Normal heart rate and rhythm. Pulses normal. Respiratory: No respiratory distress. Equal air entry bilateral, no wheezing/rales/rhonchi Abdomen: Soft and nontender. Bowel sounds are present, no mass palpable, no CVA tenderness Skin: Skin warm and dry. Normal skin color. Normal skin turgor. Extremities: No lower extremity edema. No calf tenderness Neuro: Oriented X 3. No motor deficit. No sensory deficit.No cerebellar signs , cranial nerves II-XII intact Course Course Course Narrative: RME: 67 yold female with pmh fo migrinae presents to the ED for headache for one week with no relief with motrin. Patient has nuasea, but no abdomial pain/chest pain/or stroke symptoms. head CT, EKG, and labs ordered Medications Administered Discontinued Medications Generic Name Dose Route Start Last Admin Trade Name Freq PRN Reason Stop Dose Admin Acetaminophen/Butalbital/Caffeine 1 tab 08/04/23 16:31 08/04/23 17:22 Butalb/Acetamin/Caff 50/325/40 Tablet PO 08/04/23 16:32 1 tab ONCE ONE Administration Ondansetron HCl 4 mg 08/04/23 16:31 08/04/23 17:22 Ondansetron Odt 4 Mg Tab.Rapdis TRANSLINGU 08/04/23 16:32 4 mg ONCE ONE Administration Medical Decision Making Medical Decision Making [facility] Narrative: Patient with diffuse headache with history of migraine headache likely complex migraine responded to Fioricet. Patient did take Imitrex at home yesterday without much response discharge patient home on Fioricet advised to follow up as outpatient Differential Diagnosis Differential Diagnoses: The differential diagnosis associated with the presentation includes migraine/complex migraine/temporal arteritis Lab Data MDM Lab Attestation statement: I reviewed the patient's lab results. 08/04/23 14:49 08/04/23 14:49 Labs: Lab Results 08/04/23 Range/Units 14:49 WBC 8.8 (4.8-10.8) X10*3/uL RBC 4.53 (4.20-5.50) X10*6/uL Hgb 13.3 (12.0-16.0) g/dl Hct 39.9 (37.0-47.0) % MCV 88.1 (80.0-98.0) fL MCH 29.4 (27.0-33.0) pg MCHC 33.3 (31.0-35.0) g/dl RDW 13.3 (11.0-16.0) % Plt Count 210 D (160-400) X10*3/uL MPV 12.0 (9.4-12.3) fL Immature Gran % (Auto) 0.2 (0.0-0.4) % Neut % (Auto) 74.4 H (45-73) % Lymph % (Auto) 18.3 L (20-40) % [facility] % (Auto) 6.0 (2-11) % Eos % (Auto) 0.6 (0-4) % Baso % (Auto) 0.5 (0-2) % Lymph # (Auto) 1.6 (1.2-4.9) X10*3/uL [facility] # (Auto) 0.5 (0.1-1.2) X10*3/uL Eos # (Auto) 0.1 (0.0-0.4) X10*3/uL Baso # (Auto) 0.0 (0.0-0.2) X10*3/uL Abs Immat Gran (auto) 0.02 (0.00-0.03) X10*3/uL Absolute Neuts (auto) 6.6 (2.0-8.3) x10*3/uL Absolute Nucleated RBC 0.000 (0.0-0.012) X10*3/uL Nucleated RBC % (auto) 0.0 (0.0-0.2) /100WBC PT 11.6 (11.1-13.3) SEC INR 1.0 (0.9-1.1) APTT 31.6 (26.0-36.4) SEC Sodium 137 (135-145) mmol/L Potassium 4.7 (3.3-5.1) mmol/L Chloride 102 (96-108) mmol/L Carbon Dioxide 25 (22-29) mmol/L Anion Gap 15 (12-20) BUN 16 (9-16) mg/dL Creatinine 1.16 (0.5-1.4) mg/dL Estim Creat Clear Calc 45.3 Estimated GFR 46 Random Glucose 180 H (60-115) mg/dL Calcium 9.9 (8.4-10.2) mg/dL Total Bilirubin 0.5 (0.0-1.0) mg/dL AST 114 H (5-31) U/L ALT 113 H (0-31) U/L Alkaline Phosphatase 421 H (39-117) U/L Troponin I High Sens < 2.7 (<3.5-17.0) ng/L Total Protein 8.1 H (6.5-8.0) g/dL Albumin 4.1 (3.5-5.0) g/dL COVID-19 (JEMAL) Negative (Negative) COVID-19 Clin Com See Note Influenza Type A (BARBARA) Negative (Negative) Influenza Type B (BARBARA) Negative (Negative) Influenza A & B Note See Note Discharge Plan Discharge Clinical Impression: Headache, migraine Patient Disposition: Home, Self-Care Instructions: Migraine Headache (ED) Additional Instructions: Rest at home Take medication for migraine as prescribed Follow with PCP Prescriptions: New owpzxuigjp-yjtxefngehdcr-ruul 50-325-40 mg tablet 1 tab PO Q6H PRN (Reason: haeadace) Qty: 20 0RF No Action (DME) blood-glucose meter [FreeStyle Lite Meter] Kit See Rx Instructions .ROUTE .MEDSUPPLY Qty: 1 0RF Rx Instructions: patient to check blood sugar 3 times daily (DME) OneTouch Ultra Blue Test Strip Strip See Rx Instructions .ROUTE .MEDSUPPLY Qty: 100 3RF Rx Instructions: patient to check blood sugar 3 times daily (DME) blood-glucose meter [OneTouch Ultra2 Meter] Misc See Rx Instructions .ROUTE .MEDSUPPLY Qty: 1 3RF Rx Instructions: Patient to check blood sugar 3 times daily albuterol sulfate 90 mcg/actuation HFA aerosol inhaler 1 - 2 puff PO Q4-6H PRN (Reason: respiratory symptoms) 30 Days Qty: 8.5 2RF lisinopril 40 mg tablet 40 mg PO DAILY 90 Days Qty: 90 3RF amlodipine 10 mg tablet 10 mg PO DAILY 90 Days Qty: 90 1RF famotidine 40 mg tablet 40 mg PO BEDTIME Qty: 90 0RF sumatriptan succinate 50 mg tablet 50 mg PO ONCE PRN (Reason: migraine headache) 30 Days Qty: 10 2RF (DME) pen needle, diabetic 31 gauge x 3/16 needle See Rx Instructions subcut BID Qty: 100 3RF Rx Instructions: qd insulin glargine [Lantus Solostar U-100 Insulin] 100 unit/mL (3 mL) insulin pen 30 unit subcut DAILY 90 Days Qty: 27 3RF Rx Instructions: Administer it subcutaneously latanoprost 0.005 % drops 1 drp ophthalmic (eye) BEDTIME omeprazole 20 mg capsule,delayed release(DR/EC) 20 mg PO DAILY sucralfate [Carafate] 1 gram tablet 1 g PO BID Qty: 60 0RF (DME) pen needle, diabetic 31 gauge x 3/16 needle See Rx Instructions subcut BID Qty: 100 3RF Rx Instructions: qd fentanyl 50 mcg/hr patch 72 hour 1 patch transdermal Q48H 30 Days Qty: 15 0RF oxycodone 5 mg tablet 5 mg PO DAILY PRN (Reason: pain) 14 Days Qty: 14 0RF Rx Instructions: Partial Fill upon patient request. tizanidine 4 mg tablet 4 mg PO BEDTIME PRN (Reason: for muscle spasm) 90 Days Qty: 90 1RF ondansetron HCl 4 mg tablet 4 mg PO ONCE PRN (Reason: nausea and vomiting) 30 Days Qty: 30 0RF Interventions: ED Discharge Assessment Last Done: 08/04/23 18:57 Discharge Date/Time: 08/04/23 18:57
[2023-08-04 14:53] LABS: MANUAL DIFF FLAG NO
[2023-08-04 14:56] LABS: Basophils Percent Auto 0.5 % (0-2); Eosinophils Absolute Auto 0.1 X10*3/uL (0.0-0.4); Eosinophils Percent Auto 0.6 % (0-4); Hematocrit 39.9 % (37.0-47.0); Hemoglobin 13.3 g/dl (12.0-16.0); Imm Gran Abs Auto 0.02 X10*3/uL (0.00-0.03); Imm Gran Pct Auto 0.2 % (0.0-0.4); Lymphocytes Absolute Auto 1.6 X10*3/uL (1.2-4.9); Lymphocytes Percent Auto 18.3 % (20-40); Mean Corpuscular HGB Conc 33.3 g/dl (31.0-35.0); Mean Corpuscular Hemoglobin 29.4 pg (27.0-33.0); Mean Corpuscular Volume 88.1 fL (80.0-98.0); Monocytes Absolute Auto 0.5 X10*3/uL (0.1-1.2); Neutrophils Absolute Auto 6.6 x10*3/uL (2.0-8.3); Neutrophils Percent Auto 74.4 % (45-73); Platelet Count 210 X10*3/uL (160-400); Red Blood Count 4.53 X10*6/uL (4.20-5.50); Red Cell Distribution Width 13.3 % (11.0-16.0); White Blood Count 8.8 X10*3/uL (4.8-10.8)
[2023-08-04 15:00] LABS: Prothrombin Time 11.6 SEC (11.1-13.3)
[2023-08-04 15:03] LABS: Partial Thromboplastin Time 31.6 SEC (26.0-36.4)
[2023-08-04 15:15] LABS: Alanine Aminotransferase 113 U/L (0-31); Albumin Level 4.1 g/dL (3.5-5.0); Alkaline Phosphatase 421 U/L (39-117); Anion Gap 15 (12-20); Aspartate Amino Transferase 114 U/L (5-31); Bilirubin Total 0.5 mg/dL (0.0-1.0); Blood Urea Nitrogen 16 mg/dL (9-16); Calcium 9.9 mg/dL (8.4-10.2); Carbon Dioxide 25 mmol/L (22-29); Chloride 102 mmol/L (96-108); Creatinine Clr Calc Pharmacy 45.3; Estimated Glomerular Filt Rate 46; Glucose Random 180 mg/dL (60-115); Potassium 4.7 mmol/L (3.3-5.1); Sodium 137 mmol/L (135-145); Total Protein 8.1 g/dL (6.5-8.0)
[2023-08-04 15:18] LABS: COVID-19 Test Negative (Negative); IDNOW Serial# 08D9AD1C; IDNOW Serial# 152EDE1D; Influenza A Negative (Negative); Influenza B2 Negative (Negative)
[2023-08-04 15:30] LABS: Troponin-I High Sensitivity < 2.7 ng/L (<3.5-17.0)
[2023-08-04 16:27] VITALS: BP 132/74; PULSE 82; RESP 16; O2SAT 99
[2023-08-04] MEDS: Butalb/Acetamin/Caff 50/325/40 TABLET 1 TAB PO (17:22)
[2023-08-04] MEDS: Ondansetron ODT 4 MG TAB.RAPDIS TRANSLINGU (17:22)
--- NOTE | 2023-08-04 17:40 | PC.NURSE ---
pt is a&ox4 coming in with headache x1 week, nueros intact, carcass trimmer strength equally strong in all 4 extremities, ambulates independently. reporrts having hx of migranes.
[2023-08-04 18:19] VITALS: BP 114/65; PULSE 80; RESP 16; TEMP 36.8; O2SAT 95
== END 2023-08-04 18:57 | disposition home or self-care (01) ==
PROVIDERS: Physician Assistant; Emergency Provider Internal Medicine; PCP Internal Medicine
DX: G43.909 Migraine, unspecified, not intractable, without status migrainosus (principal); I49.9 Cardiac arrhythmia, unspecified; Z11.52 Encounter for screening for COVID-19; Z79.899 Other long term (current) drug therapy
CPT/HCPCS: 36415; 70450; 80053; 84484; 85025; 85610; 85730; 87502; 87635; 93005; 99284; 99285

== ENCOUNTER → 2023-08-04 14:36 | Outpatient (BNV) | payer MEDICARE, MEDICAID, SELFPAY | PROVIDERS: Emergency Provider Internal Medicine; PCP Internal Medicine; Visit Provider Internal Medicine Cardiovascular Disease | DX: R51.9 Headache, unspecified (principal) | CPT/HCPCS: 93010 ==

== ENCOUNTER 2023-08-28 07:50 | Outpatient (REF) | payer MEDICARE, MEDICAID, SELFPAY ==
--- NOTE | ~2023-08-28 | US_ITS ---
EXAMINATION: US COMPLETE ABDOMEN WITH LIVER ELASTOGRAPHY CLINICAL INFORMATION: Fatty liver and elevated liver function tests. COMPARISON: None available. TECHNIQUE: Real-time imaging of the abdominal viscera. Noninvasive ultrasound liver fibrosis assessment is performed using [employer] ElastPQ point quantification shear wave elastography (2D-SWE) with a C5-2 MHz transducer. Multiple elastography samples are obtained. FINDINGS: PANCREAS: Limited. The visualized pancreatic head and body are normal in appearance. The remainder of the pancreas is obscured from visualization by the overlying bowel gas. ABDOMINAL AORTA: The proximal, middle, and distal aortic segments are normal in caliber. INFERIOR VENA CAVA: Visualized portions are normal. LIVER: The liver demonstrates normal size, contour and slightly increased echogenicity. No focal lesion. There is mild intrahepatic biliary duct dilatation. The right lobe measures 13.4 cm in length. The left lobe measures 10.4 cm in length. Portal flow is towards the liver (hepatopetal). Shear wave liver elastography median stiffness is 1.30 m/s (reference: normal median stiffness is 1.3 m/s or less). IQR/median stiffness to assess sampling precision is 0.10 (reference: good quality data set is IQR/median stiffness of 0.15 or less). GALLBLADDER: Normal. The gallbladder is physiologically distended without evidence of stones, sludge, polyps, wall thickening or pericholecystic fluid. COMMON BILE DUCT: Normal in caliber measuring 0.4 cm in diameter. RIGHT KIDNEY: Normal. No hydronephrosis. No renal calculi or focal parenchymal lesions. The kidney measures 10.2 cm in maximum dimension. LEFT KIDNEY: Normal. No hydronephrosis. No renal calculi or focal parenchymal lesions. The kidney measures 10.6 cm in maximum dimension. SPLEEN: Normal. The spleen measures 9.1 cm in maximum dimension. FREE FLUID: None. US/US abdomen comp w elastography IMPRESSION: 1. There is very mild generalized increase in hepatic echotexture, consistent with fatty infiltration or hepatocellular disease. Please correlate clinically. No focal hepatic mass or intrahepatic biliary dilatation is seen. 2. There is mild intrahepatic biliary ductal dilatation. 3. Liver elastography: Measurements are consistent with a high probability of normal liver stiffness. 4. Technically limited ultrasound examination of the pancreatic tail. REFERENCE: Society of Radiologists in Ultrasound Liver Stiffness Thresholds (2020): LIVER STIFFNESS THRESHOLDS: *Liver Stiffness equal or less than 1.3 m/s: High probability of being normal. *Liver Stiffness less than 1.7 m/s: In the absence of other known clinical signs, rules out compensated advanced chronic liver disease. *Liver Stiffness 1.7-2.1 m/s: Suggestive of compensated advanced chronic liver disease but need further test for confirmation. *Liver Stiffness over 2.1 m/s: Rules in compensated advanced chronic liver disease. *Liver Stiffness over 2.4 m/s: Suggestive of clinically significant portal hypertension. QUALITY OF DATA SET: *IQR/Median value equal or less than 0.15 implies a quality data set. *IQR/Median value over 0.15 implies a poor quality data set. SIGNIFICANT CHANGE FROM PRIOR EXAM: Significant change if liver stiffness measurement is 10% or greater from prior exam. OTHER CONSIDERATIONS: The stage of liver fibrosis may be overestimated in the setting of acute hepatitis, liver inflammation, elevated liver function tests, hepatic vascular congestion, obstructive cholestasis, non-fasting state, and infiltrative diseases such as amyloidosis and lymphoma. In some patients with NAFLD, the liver stiffness thresholds for compensated advanced chronic liver disease may be lower. In causes other than viral hepatitis and NAFLD, liver stiffness thresholds are not well established.
[2023-08-28 10:41] LABS: Alanine Aminotransferase 64 U/L (0-31); Albumin Level 4.1 g/dL (3.5-5.0); Alkaline Phosphatase 419 U/L (39-117); Aspartate Amino Transferase 34 U/L (5-31); Bilirubin Direct 0.2 mg/dL (0.0-0.5); Bilirubin Total 0.4 mg/dL (0.0-1.0); Gamma Glutamyl Transpeptidase 1650 U/L (7-33); Total Protein 8.2 g/dL (6.5-8.0)
[2023-08-29 13:19] LABS: Alpha Fetoprotein 6.7 ng/mL
[2023-09-01 20:04] LABS: FIB-ALT 59 U/L (6-29); FIB-Alpha-2-Macroglobulin 165 mg/dL (106-279); FIB-Apolipoprotein A1 209 mg/dL (101-198); FIB-GGT 1295 U/L (3-65); FIB-Haptoglobin 185 mg/dL (43-212); FIB-Total Bilirubin 0.4 mg/dL (0.2-1.2); Liver Fibrosis Stage F1; Nec Inflam Act Grade A1; Nec Inflam Act Score 0.35
== END 2023-08-28 07:51 | disposition home or self-care (01) ==
LOC: HO.US 07:50
PROVIDERS: PCP Internal Medicine; Visit Provider Internal Medicine
DX: R74.8 Abnormal levels of other serum enzymes (principal); K76.0 Fatty (change of) liver, not elsewhere classified
CPT/HCPCS: 36415; 76700; 76981; 80076; 81596; 82105; 82977

== ENCOUNTER 2023-09-06 12:26 | Outpatient (AMB) | payer MEDICARE, MEDICAID, SELFPAY ==
[2023-09-06 12:27] VITALS: BP 140/62; PULSE 90; O2SAT 96; BMI 27.2
--- NOTE | 2023-09-06 12:27 | MHC.PC.OV ---
Vital Signs 09/06/23 12:27 Height 5 ft 4 in Weight 158 lb 4 oz BMI 27.2 BP 140/62 H Blood Pressure Location Rt brachial Position Sitting Pulse 90 Pulse Source Pulse Oximeter Pulse Oximetry (%) 96 Oxygen Delivery Method Room Air Intake Visit Reasons: 1M F/U Allergies duloxetine [From Cymbalta] Allergy (Intermediate, Verified 09/06/23 12:27) Gastrointestinal Upset gabapentin Allergy (Intermediate, Verified 09/06/23 12:27) Gastrointestinal Upset milnacipran [From Savella] Allergy (Intermediate, Verified 09/06/23 12:27) Gastrointestinal Upset naloxegol [Movantik] Allergy (Intermediate, Verified 09/06/23 12:27) Gastrointestinal Upset pregabalin [From Lyrica] Allergy (Intermediate, Verified 09/06/23 12:27) Gastrointestinal Upset Medication List - Last Reconciled 09/06/23 by Tram Darby MD albuterol sulfate 90 mcg/actuation 1 - 2 puffs PO Q4-6H PRN 30 days amlodipine 10 mg PO DAILY 90 days blood sugar diagnostic ([employer] Ultra Blue Test Strip) patient to check blood sugar 3 times daily blood-glucose meter (FreeStyle Lite Meter kit) patient to check blood sugar 3 times daily blood-glucose meter (OneTouch Ultra2 Meter) Patient to check blood sugar 3 times daily tmhsgngygk-bvjrxeuohoazc-klql 50-325-40 mg 1 tab PO Q6H PRN famotidine 40 mg PO BEDTIME fentanyl 50 mcg/hr 1 patch transdermal Q48H 30 days insulin glargine (Lantus Solostar U-100 Insulin) 30 units (0.3 mL) subcut DAILY 90 days latanoprost 0.005% 1 drp ophthalmic (eye) BEDTIME lisinopril 40 mg PO DAILY 90 days omeprazole 20 mg PO DAILY ondansetron HCl 4 mg PO ONCE PRN 30 days oxycodone 5 mg PO DAILY PRN 14 days pen needle, diabetic qd pen needle, diabetic qd sucralfate (Carafate) 1 g PO BID sumatriptan succinate 50 mg PO ONCE PRN 30 days tizanidine 4 mg PO BEDTIME PRN 90 days Tobacco use date assessed: 09/06/23 Last assessed Fall Risk: 09/06/23 Dental Screening Dental Screen Date: 09/06/23 Did you have a dental visit in the last 12 months?: Yes Did you have a dental problem in the last 6 months where you did not have access to dental care?: No Was dental information given to patient?: Patient has dentist HPI 1M F/U HPI Details Patient is 67-year-old female came in today for her medication refill Patient history of failed back syndrome She is doing well with fentanyl patch and oxycodone for breakthrough pain Patient is going through management of elevated liver enzymes She is seeing Dr. Roberts Recently patient had labs done I see that her alpha-fetoprotein level was high I have advised patient to reach out to Dr. Roberts, as there is a plan of biopsy Currently patient is at her baseline , which is nausea off and on Follow-up 4 weeks PFSH Medical History Asthma Hx of irritable bowel syndrome Pain management Narcotic dependence Herniated nucleus pulposus, cervical Hypertension, essential Muscle spasm 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 Mother Stomach cancer Social History Housing: House Alcohol intake: never Patient Tobacco Use Status: Never used Tobacco e-Cigarette/Vaping Use: Never Used service: No Current occupational status: disabled Cognitive needs: No Hearing needs: No Vision needs: Yes Questionnaire Thrive Questionnaire Date Thrive assessed: 04/05/23 SACHIN-7 AMB Questionnaire SACHIN-7 Date SACHIN - 7 assessed: 04/05/23 Source: Developed by Drs. Tommy Graham, Marnie Ford, Sebastien Vaughn and colleagues, with an educational mayito from [employer]. Review of Systems Const Denies chills and Denies fever(s) ENT Denies epistaxis and Denies nasal discharge Card Denies chest pain Resp Denies chest congestion, Denies cough and Denies hemoptysis GI Denies diarrhea Skin/Breast Denies rash Neuro Reports no additional complaints Psych Reports no additional complaints Endo Reports no additional complaints Physical exam (Primary Care) Vital Signs: Last Vital Signs Pulse 90 09/06/23 12:27 BP 140/62 H 09/06/23 12:27 Pulse Ox 96 09/06/23 12:27 Oxygen Delivery Method Room Air 09/06/23 12:27 BMI result Body Mass Index 27.2 Tobacco/Smoking Status: Tobacco use Status Tobacco use date assessed 09/06/23 09/06/23 12:34 Patient Tobacco Use Status Never used Tobacco 09/06/23 12:34 e-Cigarette/Vaping Use Never Used 09/06/23 12:34 Thrive Assessment: Date of Thrive Assessment Date Thrive assessed 04/05/23 09/06/23 12:34 Const General: cooperative, comfortable and no acute distress Orientation/consciousness: patient oriented x3 HENMT Head: Yes normocephalic Eyes General: appearance normal, both eyes and all related structures Neck Neck: Yes supple Resp Effort & Inspection: normal respiratory effort, no cough and no stridor Cardio Rhythm: regular rhythm Heart sounds: S1 normal heart sound present and S2 normal heart sound present Skin General skin exam: turgor normal Neuro General: patient oriented x3, tone normal and moves all extremities Extrem Right lower extremity: no edema Left lower extremity: no edema Assessment and Plan Assessment & Plan (1) LFTs abnormal: Comment: hx fatty liver Code(s): R94.5 - Abnormal results of liver function studies (2) Failed back syndrome: Comment: uses fentanyl patch & oxycodone Code(s): M96.1 - Postlaminectomy syndrome, not elsewhere classified (3) Muscle spasm: Code(s): M62.838 - Other muscle spasm (4) Narcotic dependence: Code(s): F11.20 - Opioid dependence, uncomplicated (5) Pain management: Code(s): R52 - Pain, unspecified (6) Spinal stenosis, lumbar: Code(s): M48.061 - Spinal stenosis, lumbar region without neurogenic claudication Qualifiers: Neurogenic claudication status: with neurogenic claudication Qualified Code(s): M48.062 - Spinal stenosis, lumbar region with neurogenic claudication (7) Sacroiliitis: Code(s): M46.1 - Sacroiliitis, not elsewhere classified Plan Patient is 67-year-old female came in today for her medication refill Patient history of failed back syndrome She is doing well with fentanyl patch and oxycodone for breakthrough pain Patient is going through management of elevated liver enzymes She is seeing Dr. Roberts Recently patient had labs done I see that her alpha-fetoprotein level was high I have advised patient to reach out to Dr. Roberts, as there is a plan of biopsy Currently patient is at her baseline , which is nausea off and on Follow-up 4 weeks Orders: Referrals Cologuard Test Z12.11 - Encounter for screening for malignant neoplasm of colon, Z12.12 - Encounter for screening for malignant neoplasm of rectum Medications: Refilled fentanyl 50 mcg/hr 1 patch transdermal Q48H 15 ea 0RF 30 days F11.20 - Opioid dependence, uncomplicated, M50.20 - Other cervical disc displacement, unspecified cervical region, M96.1 - Postlaminectomy syndrome, not elsewhere classified, R52 - Pain, unspecified Coding Level of Care Code Est Pt Level 3 (71863) Diagnoses LFTs abnormal R94.5 Failed back syndrome M96.1 Muscle spasm M62.838 Narcotic dependence F11.20 Pain management R52 Spinal stenosis of lumbar region with neurogenic claudication M48.062 Neurogenic claudication status: with neurogenic claudication Sacroiliitis M46.1
== END 2023-09-06 12:46 | disposition home or self-care (01) ==
PROVIDERS: PCP Internal Medicine; Visit Provider Internal Medicine
DX: M46.1 Sacroiliitis, not elsewhere classified (principal); F11.20 Opioid dependence, uncomplicated; R94.5 Abnormal results of liver function studies; M96.1 Postlaminectomy syndrome, not elsewhere classified; M62.838 Other muscle spasm; R52 Pain, unspecified; M48.062 Spinal stenosis, lumbar region with neurogenic claudication
CPT/HCPCS: 99213

== ENCOUNTER 2023-09-25 08:20 | Outpatient (REF) | payer MEDICARE, MEDICAID, SELFPAY ==
--- NOTE | ~2023-09-25 | MR_ITS ---
EXAMINATION: MR ABDOMEN WITHOUT AND WITH CONTRAST MR CHOLANGIOPANCREATOGRAPHY CLINICAL INFORMATION: Elevated alkaline phosphatase level, elevated alpha protein,, hepatocellular disease found on ultrasound examination COMPARISON: Ultrasound examination of abdomen on 08/28/2023, MRI of abdomen on 06/27/2018 TECHNIQUE: Examination was performed in a high field strength MRI scanner. Multiplanar multisequence MR imaging of the abdomen was performed without IV contrast enhancement. Multiphasic Axial T1-weighted fat-suppressed images of the upper abdomen were obtained after IV injection of 7 mL Gadavist. Coronal T1-weighted fat-suppressed images of the abdomen were obtained following the dynamic axial series. MR cholangiopancreatography was performed with heavily T2 weighted sequences. 3-dimensional reconstruction of image data was performed. This was performed under concurrent direct supervision and monitoring by radiologist. Maximum intensity projection images were constructed. FINDINGS: MR CHOLANGIOPANCREATOGRAPHY: Gallbladder is surgically absent. Bilateral intra hepatic bile ducts are mildly dilated. Common bile duct are normal in size without filling defects. Pancreatic duct is normal in size. LIVER: The liver shows no focal lesion. The calculated hepatic fat percentage is 4.1%, compatible with normal. PANCREAS: No focal pancreatic lesion with abnormal signal can be seen. SPLEEN: Spleen is normal in size without focal lesion. ADRENAL: Bilateral adrenal glands are normal in shape and size. KIDNEYS: Bilateral kidneys are normal in size without focal lesion. L3-L5 bilateral laminectomies, intervertebral spinal fusion, posterior fixation with transpedicular screws and vertical bars are seen. MR/MR abdomen wo/w con IMPRESSION: 1. Unchanged Status post cholecystectomy. 2. Unchanged Mildly dilated bilateral intrahepatic bile ducts. 3. No focal hepatic mass lesion or suspicious observation could be seen. 4. Unchanged status post L3-L5 bilateral laminectomies, intervertebral spinal fusion, posterior fixation.
[2023-09-25] MEDS: gadobutroL 7.5 ML VIAL IVPUSH (09:19)
== END 2023-09-25 08:21 | disposition home or self-care (01) ==
LOC: HO.MRI 08:20
PROVIDERS: PCP Internal Medicine; Visit Provider Internal Medicine
DX: R74.8 Abnormal levels of other serum enzymes (principal); R93.2 Abnormal findings on diagnostic imaging of liver and biliary tract; R77.2 Abnormality of alphafetoprotein
CPT/HCPCS: 74183; A9585

== ENCOUNTER 2023-10-09 12:32 | Outpatient (AMB) | payer MEDICARE, MEDICAID, SELFPAY ==
--- NOTE | 2023-10-09 12:33 | A.OFFPC_ITS ---
Vital Signs 10/09/23 12:34 Height 5 ft 4 in Weight 160 lb 8 oz BMI 27.5 BP 130/68 Blood Pressure Location Rt brachial Position Sitting Pulse 78 Pulse Source Pulse Oximeter Pulse Oximetry (%) 96 Oxygen Delivery Method Room Air Intake Visit Reasons: 1M F/U Allergies duloxetine [From Cymbalta] Allergy (Intermediate, Verified 10/09/23 12:35) Gastrointestinal Upset gabapentin Allergy (Intermediate, Verified 10/09/23 12:35) Gastrointestinal Upset milnacipran [From Savella] Allergy (Intermediate, Verified 10/09/23 12:35) Gastrointestinal Upset naloxegol [Movantik] Allergy (Intermediate, Verified 10/09/23 12:35) Gastrointestinal Upset pregabalin [From Lyrica] Allergy (Intermediate, Verified 10/09/23 12:35) Gastrointestinal Upset Medication List - Last Reconciled 10/09/23 by Tram Darby MD albuterol sulfate 90 mcg/actuation 1 - 2 puffs PO Q4-6H PRN 30 days amlodipine 10 mg PO DAILY 90 days blood sugar diagnostic (Connect Controlsuch Ultra Blue Test Strip) patient to check blood sugar 3 times daily blood-glucose meter (FreeStyle Lite Meter kit) patient to check blood sugar 3 times daily blood-glucose meter (OneTouch Ultra2 Meter) Patient to check blood sugar 3 times daily vsflxsudfc-cfisqeymhypad-uban 50-325-40 mg 1 tab PO Q6H PRN famotidine 40 mg PO BEDTIME fentanyl 50 mcg/hr 1 patch transdermal Q48H 30 days insulin glargine (Lantus Solostar U-100 Insulin) 30 units (0.3 mL) subcut DAILY 90 days latanoprost 0.005% 1 drp ophthalmic (eye) BEDTIME lisinopril 40 mg PO DAILY 90 days omeprazole 20 mg PO DAILY ondansetron HCl 4 mg PO ONCE PRN 30 days oxycodone 5 mg PO DAILY PRN 14 days pen needle, diabetic qd pen needle, diabetic qd sucralfate (Carafate) 1 g PO BID sumatriptan succinate 50 mg PO ONCE PRN 30 days tizanidine 4 mg PO BEDTIME PRN 90 days Tobacco use date assessed: 10/09/23 Fall risk assessment: No Falls in past year Last assessed Fall Risk: 10/09/23 Dental Screening Dental Screen Date: 10/09/23 Did you have a dental visit in the last 12 months?: No Did you have a dental problem in the last 6 months where you did not have access to dental care?: No Was dental information given to patient?: No HPI 1M F/U HPI Details Patient is 67-year-old female came in today for her medication refill Patient continued to have right upper quadrant pain, her liver enzymes are getting worse She has appointment coming up with gastroenterology early next month, she said that biopsy is under consideration She is able to keep food and fluids down with help of Zofran but sometimes even that does not work and patient ended up having vomiting She is seeing Dr. 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 Mother Stomach cancer Social History Housing: House Alcohol intake: never Patient Tobacco Use Status: Never used Tobacco e-Cigarette/Vaping Use: Never Used service: No Current occupational status: disabled Cognitive needs: No Hearing needs: No Vision needs: Yes Questionnaire Thrive Questionnaire Date Thrive assessed: 04/05/23 SACHIN-7 AMB Questionnaire SACHIN-7 Date SACHIN - 7 assessed: 04/05/23 Source: Developed by Drs. Tommy Graham, Marnie Ford, Sebastien Vaughn and colleagues, with an educational mayito from [employer]. Review of Systems Const Denies chills and Denies fever(s) ENT Denies epistaxis and Denies nasal discharge Card Denies chest pain Resp Denies chest congestion, Denies cough and Denies hemoptysis GI Denies diarrhea Skin/Breast Denies rash Neuro Reports no additional complaints Psych Reports no additional complaints Endo Reports no additional complaints Physical exam (Primary Care) Vital Signs: Last Vital Signs Pulse 78 10/09/23 12:34 BP 130/68 10/09/23 12:34 Pulse Ox 96 10/09/23 12:34 Oxygen Delivery Method Room Air 10/09/23 12:34 BMI result Body Mass Index 27.5 Tobacco/Smoking Status: Tobacco use Status Tobacco use date assessed 10/09/23 10/09/23 12:39 Patient Tobacco Use Status Never used Tobacco 10/09/23 12:39 e-Cigarette/Vaping Use Never Used 10/09/23 12:39 Thrive Assessment: Date of Thrive Assessment Date Thrive assessed 04/05/23 10/09/23 12:39 Const General: cooperative, comfortable and no acute distress Orientation/consciousness: patient oriented x3 HENMT Head: Yes normocephalic Eyes General: appearance normal, both eyes and all related structures Neck Neck: Yes supple Resp Effort & Inspection: normal respiratory effort, no cough and no stridor Cardio Rhythm: regular rhythm Heart sounds: S1 normal heart sound present and S2 normal heart sound present Skin General skin exam: turgor normal Neuro General: patient oriented x3, tone normal and moves all extremities Extrem Right lower extremity: no edema Left lower extremity: no edema Results AMB Hemoglobin A1c AMB Hemoglobin A1c 7.6 % Last Edit by Jeremy Ortiz MA on 10/09/23 12:55 Results Reviewed Results Reviewed: Laboratory Last Values Hgb A1c (Clinic) 7.6 % (4.0-6.0) H 10/09/23 12:54 Assessment and Plan Assessment & Plan (1) Failed back syndrome: Comment: uses fentanyl patch & oxycodone Code(s): M96.1 - Postlaminectomy syndrome, not elsewhere classified (2) LFTs abnormal: Comment: hx fatty liver Code(s): R94.5 - Abnormal results of liver function studies (3) Muscle spasm: Code(s): M62.838 - Other muscle spasm (4) Narcotic dependence: Code(s): F11.20 - Opioid dependence, uncomplicated (5) Pain management: Code(s): R52 - Pain, unspecified (6) Spinal stenosis, lumbar: Code(s): M48.061 - Spinal stenosis, lumbar region without neurogenic claudication Qualifiers: Neurogenic claudication status: with neurogenic claudication Qualified Code(s): M48.062 - Spinal stenosis, lumbar region with neurogenic claudication (7) Sacroiliitis: Code(s): M46.1 - Sacroiliitis, not elsewhere classified Plan Patient is 67-year-old female came in today for her medication refill Patient continued to have right upper quadrant pain, her liver enzymes are getting worse She has appointment coming up with gastroenterology early next month, she said that biopsy is under consideration She is able to keep food and fluids down with help of Zofran but sometimes even that does not work and patient ended up having vomiting She is seeing Dr. Roberts Recently patient had labs done I see that her alpha-fetoprotein level was high Patient history of failed back syndrome She is doing well with fentanyl patch and oxycodone for breakthrough pain Medications: Refilled famotidine 40 mg PO BEDTIME 90 tabs 0RF fentanyl 50 mcg/hr 1 patch transdermal Q48H 15 ea 0RF 30 days F11.20 - Opioid dependence, uncomplicated, M50.20 - Other cervical disc displacement, unspecified cervical region, M96.1 - Postlaminectomy syndrome, not elsewhere classified, R52 - Pain, unspecified Coding Level of Care Code Est Pt Level 3 (72257) Diagnoses Failed back syndrome M96.1 LFTs abnormal R94.5 Muscle spasm M62.838 Narcotic dependence F11.20 Pain management R52 Spinal stenosis of lumbar region with neurogenic claudication M48.062 Neurogenic claudication status: with neurogenic claudication Sacroiliitis M46.1
[2023-10-09 12:34] VITALS: BP 130/68; PULSE 78; O2SAT 96; BMI 27.5
== END 2023-10-09 12:54 | disposition home or self-care (01) ==
PROVIDERS: PCP Internal Medicine; Visit Provider Internal Medicine
DX: R94.5 Abnormal results of liver function studies (principal); F11.20 Opioid dependence, uncomplicated; M46.1 Sacroiliitis, not elsewhere classified; M96.1 Postlaminectomy syndrome, not elsewhere classified; M62.838 Other muscle spasm; R52 Pain, unspecified; M48.062 Spinal stenosis, lumbar region with neurogenic claudication
CPT/HCPCS: 83036; 99213

== ENCOUNTER 2023-11-08 12:53 | Outpatient (AMB) | payer MEDICARE, MEDICAID, SELFPAY ==
--- NOTE | 2023-11-08 12:59 | MHC.PC.OV ---
Vital Signs 11/08/23 13:00 Height 5 ft 4 in Weight 160 lb BMI 27.5 BP 122/72 Blood Pressure Location Rt brachial Position Sitting Pulse 87 Pulse Source Pulse Oximeter Pulse Oximetry (%) 98 Oxygen Delivery Method Room Air Intake Visit Reasons: 1M F/U Allergies duloxetine [From Cymbalta] Allergy (Intermediate, Verified 11/08/23 13:00) Gastrointestinal Upset gabapentin Allergy (Intermediate, Verified 11/08/23 13:00) Gastrointestinal Upset milnacipran [From Savella] Allergy (Intermediate, Verified 11/08/23 13:00) Gastrointestinal Upset naloxegol [Movantik] Allergy (Intermediate, Verified 11/08/23 13:00) Gastrointestinal Upset pregabalin [From Lyrica] Allergy (Intermediate, Verified 11/08/23 13:00) Gastrointestinal Upset Tobacco use date assessed: 10/09/23 Dental Screening Dental Screen Date: 10/09/23 HPI 1M F/U HPI Details Patient is 67-year-old female came in today for her medication refill LFT worsening, appointment coming up November [address] Roberts Recently patient had labs done I see that her alpha-fetoprotein level was high Patient history of failed back syndrome She is doing well with fentanyl patch and oxycodone for breakthrough pain She is complaining of pain left foot for the past 1, patient says that it hurts to walk We talked about proper foot wear, she needs to get shoes with padding I ordered x-ray of foot, referral please to see it project manager Next month December 26 patient is traveling to [place] and will not be able to come in for medication refill She will let me know I will sent a script and her daughter will mail it to [place]. 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 Mother Stomach cancer Social History Housing: House Alcohol intake: never Patient Tobacco Use Status: Never used Tobacco e-Cigarette/Vaping Use: Never Used service: No Current occupational status: disabled Cognitive needs: No Hearing needs: No Vision needs: Yes Questionnaire Thrive Questionnaire Date Thrive assessed: 04/05/23 SACHIN-7 AMB Questionnaire SACHIN-7 Date SACHIN - 7 assessed: 04/05/23 Source: Developed by Drs. Tommy Graham, Marnie Ford, Sebastien Vaughn and colleagues, with an educational mayito from [employer]. Review of Systems Const Denies chills and Denies fever(s) ENT Denies epistaxis and Denies nasal discharge Card Denies chest pain Resp Denies chest congestion, Denies cough and Denies hemoptysis GI Denies diarrhea Skin/Breast Denies rash Neuro Reports no additional complaints Psych Reports no additional complaints Endo Reports no additional complaints Physical exam (Primary Care) Vital Signs: Last Vital Signs Pulse 87 11/08/23 13:00 BP 122/72 11/08/23 13:00 Pulse Ox 98 11/08/23 13:00 Oxygen Delivery Method Room Air 11/08/23 13:00 BMI result Body Mass Index 27.5 Tobacco/Smoking Status: Tobacco use Status Tobacco use date assessed 10/09/23 11/08/23 13:03 Patient Tobacco Use Status Never used Tobacco 11/08/23 13:03 e-Cigarette/Vaping Use Never Used 11/08/23 13:03 Thrive Assessment: Date of Thrive Assessment Date Thrive assessed 04/05/23 11/08/23 13:03 Const General: cooperative, comfortable and no acute distress Orientation/consciousness: patient oriented x3 HENMT Head: Yes normocephalic Eyes General: appearance normal, both eyes and all related structures Neck Neck: Yes supple Resp Effort & Inspection: normal respiratory effort, no cough and no stridor Cardio Rhythm: regular rhythm Heart sounds: S1 normal heart sound present and S2 normal heart sound present Skin General skin exam: turgor normal Neuro General: patient oriented x3, tone normal and moves all extremities Extrem Ankle/foot/toe images: 1. Tender to pressure Assessment and Plan Assessment & Plan (1) Foot pain, left: Code(s): M79.672 - Pain in left foot (2) Failed back syndrome: Comment: uses fentanyl patch & oxycodone Code(s): M96.1 - Postlaminectomy syndrome, not elsewhere classified (3) LFTs abnormal: Comment: hx fatty liver Code(s): R94.5 - Abnormal results of liver function studies (4) Muscle spasm: Code(s): M62.838 - Other muscle spasm (5) Narcotic dependence: Code(s): F11.20 - Opioid dependence, uncomplicated (6) Pain management: Code(s): R52 - Pain, unspecified (7) Spinal stenosis, lumbar: Code(s): M48.061 - Spinal stenosis, lumbar region without neurogenic claudication Qualifiers: Neurogenic claudication status: with neurogenic claudication Qualified Code(s): M48.062 - Spinal stenosis, lumbar region with neurogenic claudication (8) Sacroiliitis: Code(s): M46.1 - Sacroiliitis, not elsewhere classified Plan Patient is 67-year-old female came in today for her medication refill LFT worsening, appointment coming up November [address] Roberts Recently patient had labs done I see that her alpha-fetoprotein level was high Patient history of failed back syndrome She is doing well with fentanyl patch and oxycodone for breakthrough pain She is complaining of pain left foot for the past 1, patient says that it hurts to walk We talked about proper foot wear, she needs to get shoes with padding I ordered x-ray of foot, referral please to see it project manager Next month December 26 patient is traveling to [place] and will not be able to come in for medication refill She will let me know I will sent a script and her daughter will mail it to [place]. She is also due for urine drug screen Orders: Orders Fentanyl, urine Today F11.20 - Opioid dependence, uncomplicated Drug Screen Urine Today F11.20 - Opioid dependence, uncomplicated Referrals Podiatry Referral M79.672 - Pain in left foot Medications: Refilled fentanyl 50 mcg/hr 1 patch transdermal Q48H 30 days 15 ea 0RF F11.20 - Opioid dependence, uncomplicated, M50.20 - Other cervical disc displacement, unspecified cervical region, M96.1 - Postlaminectomy syndrome, not elsewhere classified, R52 - Pain, unspecified Coding Level of Care Code Est Pt Level 4 (68734) Complex EM visit Add On G2211 Diagnoses Foot pain, left M79.672 Failed back syndrome M96.1 LFTs abnormal R94.5 Muscle spasm M62.838 Narcotic dependence F11.20 Pain management R52 Spinal stenosis of lumbar region with neurogenic claudication M48.062 Neurogenic claudication status: with neurogenic claudication Sacroiliitis M46.1
[2023-11-08 13:00] VITALS: BP 122/72; PULSE 87; O2SAT 98; BMI 27.5
== END 2023-11-08 13:51 | disposition home or self-care (01) ==
PROVIDERS: PCP Internal Medicine; Visit Provider Internal Medicine
DX: M79.672 Pain in left foot (principal); M96.1 Postlaminectomy syndrome, not elsewhere classified; F11.20 Opioid dependence, uncomplicated; M46.1 Sacroiliitis, not elsewhere classified; R94.5 Abnormal results of liver function studies; M62.838 Other muscle spasm; R52 Pain, unspecified; M48.062 Spinal stenosis, lumbar region with neurogenic claudication
CPT/HCPCS: 99214; G2211

== ENCOUNTER 2023-11-08 13:20 | Outpatient (REF) | payer MEDICARE, MEDICAID, SELFPAY ==
--- NOTE | ~2023-11-08 | XR_ITS ---
EXAMINATION: XR FOOT, LEFT CLINICAL INFORMATION: Pain in the left foot COMPARISON: X-ray the left ankle June 2011 TECHNIQUE: AP, lateral, and oblique views of the left foot. FINDINGS: First metatarsophalangeal joint: Mild osteoarthritis manifested by small subchondral cysts and marginal osteophytes. No joint space narrowing. Mild osteoarthritis of the navicular cuneiform joint manifested by marginal osteophytes. Small calcaneal spurs. 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
== END 2023-11-08 13:21 | disposition home or self-care (01) ==
LOC: HO.HMGCX 13:20
PROVIDERS: PCP Internal Medicine; Visit Provider Internal Medicine
DX: M19.072 Primary osteoarthritis, left ankle and foot (principal)
CPT/HCPCS: 73630

== ENCOUNTER 2024-01-03 11:27 | Outpatient (REF) | payer MEDICARE, MEDICAID, SELFPAY ==
[2024-01-03 13:04] LABS: Alanine Aminotransferase 19 U/L (0-31); Alkaline Phosphatase 148 U/L (39-117); Aspartate Amino Transferase 27 U/L (5-31); Bilirubin Direct 0.2 mg/dL (0.0-0.5); Bilirubin Total 0.5 mg/dL (0.0-1.0)
[2024-01-07 11:29] LABS: Mitochondrial Antibodies NEGATIVE (NEGATIVE)
== END 2024-01-03 11:28 | disposition home or self-care (01) ==
LOC: HO.LAB 11:27
PROVIDERS: PCP Internal Medicine; Visit Provider Internal Medicine
DX: R74.8 Abnormal levels of other serum enzymes (principal); R79.89 Other specified abnormal findings of blood chemistry
CPT/HCPCS: 80076; 86376; 86381

== ENCOUNTER 2024-01-08 12:04 | Outpatient (AMB) | payer MEDICARE, MEDICAID, SELFPAY ==
[2024-01-08 12:07] VITALS: BP 152/74; PULSE 84; O2SAT 97; BMI 27.0
--- NOTE | 2024-01-08 12:07 | MHC.PC.OV ---
Vital Signs 01/08/24 12:07 Height 5 ft 4 in Weight 157 lb 4 oz BMI 27.0 BP 152/74 H Blood Pressure Location Rt brachial Position Sitting Pulse 84 Pulse Source Pulse Oximeter Pulse Oximetry (%) 97 Oxygen Delivery Method Room Air Intake Visit Reasons: Office visit Allergies duloxetine [From Cymbalta] Allergy (Intermediate, Verified 01/08/24 12:10) Gastrointestinal Upset gabapentin Allergy (Intermediate, Verified 01/08/24 12:10) Gastrointestinal Upset milnacipran [From Savella] Allergy (Intermediate, Verified 01/08/24 12:10) Gastrointestinal Upset naloxegol [Movantik] Allergy (Intermediate, Verified 01/08/24 12:10) Gastrointestinal Upset pregabalin [From Lyrica] Allergy (Intermediate, Verified 01/08/24 12:10) Gastrointestinal Upset Medication List - Last Reconciled 01/08/24 by Tram Darby MD albuterol sulfate 90 mcg/actuation 1 - 2 puffs PO Q4-6H PRN 30 days amlodipine 10 mg PO DAILY 90 days blood sugar diagnostic ([employer] Ultra Blue Test Strip) patient to check blood sugar 3 times daily blood-glucose meter (FreeStyle Lite Meter kit) patient to check blood sugar 3 times daily blood-glucose meter (OneTouch Ultra2 Meter) Patient to check blood sugar 3 times daily sxsmvliwek-ophuegzgkpeub-uxwm 50-325-40 mg 1 tab PO Q6H PRN famotidine 40 mg PO BEDTIME fentanyl 50 mcg/hr 1 patch transdermal Q48H 30 days insulin glargine (Lantus Solostar U-100 Insulin) 30 units (0.3 mL) subcut DAILY 90 days latanoprost 0.005% 1 drp ophthalmic (eye) BEDTIME lisinopril 40 mg PO DAILY 90 days omeprazole 20 mg PO DAILY ondansetron HCl 4 mg PO ONCE PRN 30 days oxycodone 5 mg PO DAILY PRN 30 days pen needle, diabetic qd pen needle, diabetic qd sucralfate (Carafate) 1 g PO BID sumatriptan succinate 50 mg PO ONCE PRN 30 days tizanidine 4 mg PO BEDTIME PRN 90 days Tobacco use date assessed: 10/09/23 Dental Screening Dental Screen Date: 10/09/23 HPI Office visit HPI Details Patient is 68-year-old female came in today for her regular follow-up appointment Patient have a history of insulin-dependent diabetes, fatty liver with elevated liver enzymes and chronic abdominal cramping, chronic GERD Abdominal symptoms managed by Dr. Roberts [facility] Patient have failed back syndrome history of surgery lumbar spine, she has lumbar spine stenosis, cervical spine radiculitis degenerated thoracic spine, causing muscle spasms She has hypertension, blood pressure fluctuate, taking medication as prescribed and tolerating Failed back syndrome: She is opioid dependent for pain management and is on fentanyl patch and oxycodone few tablets for breakthrough pain Patient is complying with the treatment plan She is aware of side effects of narcotics. Lipid disorder managed with the help of lipid medication She had some labs done through Gastroenterology last month, her liver enzymes has improved She is also due for metabolic profile kidney functions, patient would like to be checked for lupus and rheumatoid arthritis As she continued to have severe pain in multiple joints. 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 Mother Stomach cancer Social History Housing: House Alcohol intake: never Patient Tobacco Use Status: Never used Tobacco e-Cigarette/Vaping Use: Never Used service: No Current occupational status: disabled Cognitive needs: No Hearing needs: No Vision needs: Yes Questionnaire Thrive Questionnaire Date Thrive assessed: 04/05/23 SACHIN-7 AMB Questionnaire SACHIN-7 Date SACHIN - 7 assessed: 04/05/23 Source: Developed by Drs. Tommy Graham, Marnie Ford, Sebastien Vaughn and colleagues, with an educational amyito from [employer]. Review of Systems Const Denies chills and Denies fever(s) ENT Denies epistaxis and Denies nasal discharge Card Denies chest pain Resp Denies chest congestion, Denies cough and Denies hemoptysis GI Denies diarrhea and Denies nausea Skin/Breast Denies rash Neuro Reports no additional complaints Psych Reports no additional complaints Endo Reports no additional complaints Physical exam (Primary Care) Vital Signs: Last Vital Signs Pulse 84 01/08/24 12:07 BP 152/74 H 01/08/24 12:07 Pulse Ox 97 01/08/24 12:07 Oxygen Delivery Method Room Air 01/08/24 12:07 BMI result Body Mass Index 27.0 Tobacco/Smoking Status: Tobacco use Status Tobacco use date assessed 10/09/23 01/08/24 12:10 Patient Tobacco Use Status Never used Tobacco 01/08/24 12:10 e-Cigarette/Vaping Use Never Used 01/08/24 12:10 Thrive Assessment: Date of Thrive Assessment Date Thrive assessed 04/05/23 01/08/24 12:10 Const General: cooperative, comfortable and no acute distress Orientation/consciousness: patient oriented x3 HENMT Head: Yes normocephalic Eyes General: appearance normal, both eyes and all related structures Neck Neck: Yes supple Resp Effort & Inspection: normal respiratory effort, no cough and no stridor Cardio Rhythm: regular rhythm Heart sounds: S1 normal heart sound present and S2 normal heart sound present Skin General skin exam: turgor normal Neuro General: patient oriented x3, tone normal and moves all extremities Extrem Right lower extremity: no edema Left lower extremity: no edema Assessment and Plan Assessment & Plan (1) Diabetes 1.5, managed as type 1: Comment: taking lantus insulin Code(s): E13.9 - Other specified diabetes mellitus without complications (2) LFTs abnormal: Comment: hx fatty liver Code(s): R94.5 - Abnormal results of liver function studies (3) Chronic GERD: Code(s): K21.9 - Gastro-esophageal reflux disease without esophagitis (4) Failed back syndrome: Comment: uses fentanyl patch & oxycodone Code(s): M96.1 - Postlaminectomy syndrome, not elsewhere classified (5) Hypertension, essential: Code(s): I10 - Essential (primary) hypertension (6) Muscle spasm: Code(s): M62.838 - Other muscle spasm (7) Narcotic dependence: Code(s): F11.20 - Opioid dependence, uncomplicated (8) Herniated nucleus pulposus, cervical: Code(s): M50.20 - Other cervical disc displacement, unspecified cervical region (9) 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: Code(s): Z79.4 - 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 (10) Migraine headache: Code(s): G43.909 - Migraine, unspecified, not intractable, without status migrainosus Qualifiers: Intractability: intractable Migraine type: unspecified Status migrainosus presence: without status migrainosus Qualified Code(s): G43.919 - Migraine, unspecified, intractable, without status migrainosus (11) Arthrosis: Code(s): M19.90 - Unspecified osteoarthritis, unspecified site Plan Patient is 68-year-old female came in today for her regular follow-up appointment Patient have a history of insulin-dependent diabetes, fatty liver with elevated liver enzymes and chronic abdominal cramping, chronic GERD Abdominal symptoms managed by Dr. Roberts [facility] Patient have failed back syndrome history of surgery lumbar spine, she has lumbar spine stenosis, cervical spine radiculitis degenerated thoracic spine, causing muscle spasms She has hypertension, blood pressure fluctuate, taking medication as prescribed and tolerating Failed back syndrome: She is opioid dependent for pain management and is on fentanyl patch and oxycodone few tablets for breakthrough pain Patient is complying with the treatment plan She is aware of side effects of narcotics. Lipid disorder managed with the help of lipid medication She had some labs done through Gastroenterology last month, her liver enzymes has improved She is also due for metabolic profile kidney functions, patient would like to be checked for lupus and rheumatoid arthritis As she continued to have severe pain in multiple joints. Migraine headache stable Regular follow-up every 3 months and monthly visit for narcotic medication refill Orders: Orders Complete Blood Count Auto Diff Today E13.9 - Other specified diabetes mellitus without complications, F11.20 - Opioid dependence, uncomplicated, G43.919 - Migraine, unspecified, intractable, without status migrainosus, I10 - Essential (primary) hypertension, K21.9 - Gastro-esophageal reflux disease without esophagitis, M50.20 - Other cervical disc displacement, unspecified cervical region, M62.838 - Other muscle spasm, M96.1 - Postlaminectomy syndrome, not elsewhere classified, R94.5 - Abnormal results of liver function studies, Z79.4 - nursing home (current) use of insulin Rheumatoid Factor Today . - Unspecified osteoarthritis, unspecified site Anti DNA DS Antibody Today - Unspecified osteoarthritis, unspecified site Anti Extractable Nuclear Ag Today - Unspecified osteoarthritis, unspecified site Complement C3 Today . - Unspecified osteoarthritis, unspecified site Comprehensive Met. 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 TSH reflex Free T4 Today E13.9 - Other specified diabetes mellitus without complications, F11.20 - Opioid dependence, uncomplicated, G43.919 - Migraine, unspecified, intractable, without status migrainosus, I10 - Essential (primary) hypertension, K21.9 - Gastro-esophageal reflux disease without esophagitis, M50.20 - Other cervical disc displacement, unspecified cervical region, M62.838 - Other muscle spasm, M96.1 - Postlaminectomy syndrome, not elsewhere classified, R94.5 - Abnormal results of liver function studies, Z79.4 - nursing home (current) use of insulin Complement C4 Today - Unspecified osteoarthritis, unspecified site Sjogren's Antibodies Today - Unspecified osteoarthritis, unspecified site Medications: Refilled fentanyl 50 mcg/hr 1 patch transdermal Q48H 30 days 15 ea 0RF F11.20 - Opioid dependence, uncomplicated, M50.20 - Other cervical disc displacement, unspecified cervical region, M96.1 - Postlaminectomy syndrome, not elsewhere classified, R52 - Pain, unspecified Coding Level of Care Code Est Pt Level 4 (43776) Complex EM visit Add On G2211 Diagnoses Diabetes 1.5, managed as type 1 E13.9 LFTs abnormal R94.5 Chronic GERD K21.9 Failed back syndrome M96.1 Hypertension, essential I10 Muscle spasm M62.838 Narcotic dependence F11.20 Herniated nucleus pulposus, cervical M50.20 nursing home (current) use of insulin Z79.4 Intractable migraine without status migrainosus, unspecified migraine type G43.919 Intractability: intractable Migraine type: unspecified Status migrainosus presence: without status migrainosus Arthrosis M19.90
== END 2024-01-08 12:49 | disposition home or self-care (01) ==
PROVIDERS: PCP Internal Medicine; Visit Provider Internal Medicine
DX: E13.9 Other specified diabetes mellitus without complications (principal); Z79.4 Long term (current) use of insulin; F11.20 Opioid dependence, uncomplicated; R94.5 Abnormal results of liver function studies; K21.9 Gastro-esophageal reflux disease without esophagitis; M96.1 Postlaminectomy syndrome, not elsewhere classified; I10 Essential (primary) hypertension; M62.838 Other muscle spasm; M50.20 Other cervical disc displacement, unspecified cervical region; G43.919 Migraine, unspecified, intractable, without status migrainosus; M19.90 Unspecified osteoarthritis, unspecified site
CPT/HCPCS: 99214; G2211

== ENCOUNTER 2024-01-29 10:03 | Outpatient (REF) | payer MEDICARE, MEDICAID, SELFPAY ==
[2024-01-29 10:38] LABS: Basophils Absolute Auto 0.1 X10*3/uL (0.0-0.2); Basophils Percent Auto 0.6 % (0-2); Eosinophils Absolute Auto 0.2 X10*3/uL (0.0-0.4); Eosinophils Percent Auto 2.1 % (0-4); Hematocrit 41.5 % (37.0-47.0); Hemoglobin 13.6 g/dl (12.0-16.0); Imm Gran Abs Auto 0.02 X10*3/uL (0.00-0.03); Imm Gran Pct Auto 0.2 % (0.0-0.4); Lymphocytes Absolute Auto 2.1 X10*3/uL (1.2-4.9); Lymphocytes Percent Auto 24.8 % (20-40); MANUAL DIFF FLAG NO; Mean Corpuscular HGB Conc 32.8 g/dl (31.0-35.0); Mean Corpuscular Hemoglobin 29.7 pg (27.0-33.0); Mean Corpuscular Volume 90.6 fL (80.0-98.0); Mean Platelet Volume 12.2 fL (9.4-12.3); Monocytes Absolute Auto 0.7 X10*3/uL (0.1-1.2); Monocytes Percent Auto 7.5 % (2-11); Neutrophils Absolute Auto 5.6 x10*3/uL (2.0-8.3); Neutrophils Percent Auto 64.8 % (45-73); Platelet Count 181 X10*3/uL (160-400); Red Blood Count 4.58 X10*6/uL (4.20-5.50); Red Cell Distribution Width 13.7 % (11.0-16.0); White Blood Count 8.6 X10*3/uL (4.8-10.8)
[2024-01-29 11:18] LABS: Amphetamine Screen Urine Not Detected (Not Detect); Barbiturates, Urine Not Detected (Not Detect); Benzodiazepines Screen Urine Not Detected (Not Detect); Buprenorphine Scr Not Detected (Not Detect); Cannabinoid Screen Urine Not Detected (Not Detect); Cocaine Screen Urine Not Detected (Not Detect); Fentanyl, urine POSITIVE (Not Detect); Methadone Screen, Urine Not Detected (Not Detect); Opiate Screen Urine Not Detected (Not Detect); Oxycodone Screen Urine Positive (Not Detect); Phencyclidine Screen Urine Not Detected (Not Detect)
[2024-01-29 11:28] LABS: Appearance Urine Clear; Color Urine Yellow; Glucose Urine UA Negative (Negative); Leukocyte Esterase Urine Negative (Negative); Nitrite Urine Negative (Negative); PH 5.5 (5.0-9.0); UMIC TRIGGER UACC YES; Urine Blood Trace (Negative); Urine Ketones Negative (Negative); Urine Protein Negative (Neg-Trace)
[2024-01-29 11:53] LABS: Bacteria Urine None Seen (None Seen); Hyaline Casts Urine 0-2 /LPF (0-2); Squamous Epithelial Cell Urine 0-2 /HPF (0-2); WBC Urine 0-5 /HPF (0-5)
[2024-01-29 12:05] LABS: Rheumatoid Factor < 13.0 IU/mL (<15.0)
[2024-01-29 12:14] LABS: Alanine Aminotransferase 191 U/L (0-31); Alkaline Phosphatase 370 U/L (39-117); Anion Gap 16 (12-20); Aspartate Amino Transferase 208 U/L (5-31); Bilirubin Total 0.7 mg/dL (0.0-1.0); Blood Urea Nitrogen 18 mg/dL (9-16); Calcium 9.6 mg/dL (8.4-10.2); Carbon Dioxide 25 mmol/L (22-29); Chloride 104 mmol/L (96-108); Estimated Glomerular Filt Rate 60; Glucose Random 116 mg/dL (60-115); Potassium 4.6 mmol/L (3.3-5.1); Sodium 140 mmol/L (135-145)
[2024-01-29 12:34] LABS: TSH reflex Free T4 2.01 uIU/mL (0.32-4.0)
[2024-01-30 10:18] LABS: Complement C3 156 mg/dL (83-193)
[2024-01-30 14:33] LABS: Anti DNA DS Antibody <1 IU/mL; Antibody to SS-A Antigen <1.0 NEG AI (<1.0 NEG); Antibody to SS-B Antigen <1.0 NEG AI (<1.0 NEG); SM/Ribonucleoprotein Ab <1.0 NEG AI (<1.0 NEG); Smith Protein <1.0 NEG AI (<1.0 NEG)
== END 2024-01-29 10:04 | disposition home or self-care (01) ==
LOC: HO.LAB 10:03
PROVIDERS: PCP Internal Medicine; Visit Provider Internal Medicine
DX: M19.90 Unspecified osteoarthritis, unspecified site (principal); E13.9 Other specified diabetes mellitus without complications; R94.5 Abnormal results of liver function studies; K21.9 Gastro-esophageal reflux disease without esophagitis; M96.1 Postlaminectomy syndrome, not elsewhere classified; I10 Essential (primary) hypertension; M62.838 Other muscle spasm; F11.20 Opioid dependence, uncomplicated; M50.20 Other cervical disc displacement, unspecified cervical region; Z79.4 Long term (current) use of insulin; G43.919 Migraine, unspecified, intractable, without status migrainosus
CPT/HCPCS: 80053; 80307; 81001; 84443; 85025; 86160; 86225; 86235; 86431

== ENCOUNTER 2024-02-05 11:49 | Outpatient (AMB) | payer MEDICARE, MEDICAID, SELFPAY ==
[2024-02-05 11:49] VITALS: BP 154/72; PULSE 99; O2SAT 96
--- NOTE | 2024-02-05 11:49 | MHC.PC.OV ---
Vital Signs 02/05/24 11:49 Height 5 ft 4 in Weight 15 lb 9 oz BMI 2.7 BP 154/72 H Blood Pressure Location Rt brachial Position Sitting Pulse 99 Pulse Source Pulse Oximeter Pulse Oximetry (%) 96 Oxygen Delivery Method Room Air Intake Visit Reasons: 1 month follow up Allergies duloxetine [From Cymbalta] Allergy (Intermediate, Verified 02/05/24 11:49) Gastrointestinal Upset gabapentin Allergy (Intermediate, Verified 02/05/24 11:49) Gastrointestinal Upset milnacipran [From Savella] Allergy (Intermediate, Verified 02/05/24 11:49) Gastrointestinal Upset naloxegol [Movantik] Allergy (Intermediate, Verified 02/05/24 11:49) Gastrointestinal Upset pregabalin [From Lyrica] Allergy (Intermediate, Verified 02/05/24 11:49) Gastrointestinal Upset Medication List - Last Reconciled 02/05/24 by Tram Darby MD albuterol sulfate 90 mcg/actuation 1 - 2 puffs PO Q4-6H PRN 30 days amlodipine 10 mg PO DAILY 90 days blood sugar diagnostic ([employer] Ultra Blue Test Strip) patient to check blood sugar 3 times daily blood-glucose meter (FreeStyle Lite Meter kit) patient to check blood sugar 3 times daily blood-glucose meter (OneTouch Ultra2 Meter) Patient to check blood sugar 3 times daily eyviejlbec-pgxohtqehyepg-sfdk 50-325-40 mg 1 tab PO Q6H PRN famotidine 40 mg PO BEDTIME fentanyl 50 mcg/hr 1 patch transdermal Q48H 30 days insulin glargine (Lantus Solostar U-100 Insulin) 30 units (0.3 mL) subcut DAILY 90 days latanoprost 0.005% 1 drp ophthalmic (eye) BEDTIME lisinopril 40 mg PO DAILY 90 days omeprazole 20 mg PO DAILY ondansetron HCl 4 mg PO ONCE PRN 30 days oxycodone 5 mg PO DAILY PRN 30 days pen needle, diabetic qd pen needle, diabetic qd sucralfate (Carafate) 1 g PO BID sumatriptan succinate 50 mg PO ONCE PRN 30 days tizanidine 4 mg PO BEDTIME PRN 90 days Tobacco use date assessed: 02/05/24 Fall risk assessment: No Falls in past year Last assessed Fall Risk: 02/05/24 Dental Screening Dental Screen Date: 02/05/24 Did you have a dental visit in the last 12 months?: Yes Did you have a dental problem in the last 6 months where you did not have access to dental care?: No Was dental information given to patient?: Patient has dentist HPI 1 month follow up HPI Details Patient is 68-year-old female came in today for her medication refill Her liver enzymes has gotten worse again patient is seeing Dr. 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 Mother Stomach cancer Social History Housing: House Alcohol intake: never Patient Tobacco Use Status: Never used Tobacco e-Cigarette/Vaping Use: Never Used service: No Current occupational status: disabled Cognitive needs: No Hearing needs: No Vision needs: Yes Questionnaire PHQ-9 Over the last 2 weeks, how often have you been bothered by any of the following problems? 1. Little interest or pleasure in doing things: not at all 2. Feeling down, depressed, or hopeless: not at all 3. Trouble falling or staying asleep, or sleeping too much: not at all 4. Feeling tired or having little energy: several days 5. Poor appetite or overeating: not at all 6. Feeling bad about yourself - or that you are a failure or have let yourself or your family down: not at all 7. Trouble concentrating on things, such as reading the newspaper or watching television: not at all 8. Moving or speaking so slowly that other people could have noticed. Or the opposite - being so fidgety or restless that you have been moving around a lot more than usual: not at all 9. Thoughts that you would be better off or of hurting yourself in some way: not at all Total score: 1 Depression Screening Interpretation: Negative Depression Screening Done: Yes 59967 - PHQ-9 Billing: Yes Source: Developed by Drs. Tommy Graham, Marnie Ford, Sebastien Vaughn and colleagues, with an educational mayito from [employer]. Thrive Questionnaire Date Thrive assessed: 02/05/24 I am a: Patient What is your living situation today?: I have a steady place to live Within the past 12 months, did the food you bought not last and you didn't have the money to get more?: Never true Within the past 12 months, did you worry whether your food would run out before you got money to buy more?: Never true Do you have trouble paying for medicines?: No Do you have trouble getting transportation to medical appointments?: No Do you have trouble paying your heating and electricity bill?: No Do you have trouble taking care of your child, family member or friend?: No Do you have trouble with day-to-day activities such as bathing, preparing meals, shopping, managing finances, etc.?: No Are you currently unemployed and looking for a job?: No Are you interested in more education?: No Please select the resources that you would like help with: None Currently or been in a relationship where the following occur: No concerns reported THRIVE Score: 0 AUDIT C Alcohol Use Questionnaire (AUDIT-C) 1. How often do you have a drink containing alcohol?: Never 3. How often do you have six or more drinks on one occasion?: Never Total Score: 0 Score Reviewed/Action Taken: Yes SACHIN-7 AMB Questionnaire SACHIN-7 Date SACHIN - 7 assessed: 02/05/24 Feeling nervous, anxious, or on edge: 0 = Not at all Not being able to stop or control worryin = Not at all Worrying too much about different things: 0 = Not at all Trouble relaxin = Not at all Being so restless that it is hard to sit still: 0 = Not at all Becoming easily annoyed or irritable: 0 = Not at all Feeling afraid as if something awful might happen: 0 = Not at all Total SACHIN-7 score (0-4 normal; 5-9 mild; 10-14 moderate; 15-21 severe): 0 Source: Developed by Drs. Tommy Graham, Marnie Ford, Sebastien Vaughn and colleagues, with an educational mayito from [employer]. SACHIN-7 Assessment Billing SACHIN-7 Assessment Tool: SACHIN-7 Assessment 61120 Review of Systems Const Denies chills and Denies fever(s) ENT Denies epistaxis and Denies nasal discharge Card Denies chest pain Resp Denies chest congestion, Denies cough and Denies hemoptysis GI Denies diarrhea Skin/Breast Denies rash Neuro Reports no additional complaints Psych Reports no additional complaints Endo Reports no additional complaints Physical exam (Primary Care) Vital Signs: Last Vital Signs Pulse 99 02/05/24 11:49 BP 154/72 H 02/05/24 11:49 Pulse Ox 96 02/05/24 11:49 Oxygen Delivery Method Room Air 02/05/24 11:49 BMI result Body Mass Index 2.7 Tobacco/Smoking Status: Tobacco use Status Tobacco use date assessed 02/05/24 02/05/24 11:50 Patient Tobacco Use Status Never used Tobacco 02/05/24 11:50 e-Cigarette/Vaping Use Never Used 02/05/24 11:50 PHQ-9: PHQ-9 Score PHQ-9: Total score 1 02/05/24 11:56 Depression Screening Interpretation: Negative Thrive Assessment: Date of Thrive Assessment Date Thrive assessed 02/05/24 02/05/24 11:56 Currently or been in a relationship where the following occur: No concerns reported Const General: cooperative, comfortable and no acute distress Orientation/consciousness: patient oriented x3 HENMT Head: Yes normocephalic Eyes General: appearance normal, both eyes and all related structures Neck Neck: Yes supple Resp Effort & Inspection: normal respiratory effort, no cough and no stridor Cardio Rhythm: regular rhythm Heart sounds: S1 normal heart sound present and S2 normal heart sound present Skin General skin exam: turgor normal Neuro General: patient oriented x3, tone normal and moves all extremities Extrem Right lower extremity: no edema Left lower extremity: no edema Assessment and Plan Assessment & Plan (1) Failed back syndrome: Comment: uses fentanyl patch & oxycodone Code(s): M96.1 - Postlaminectomy syndrome, not elsewhere classified (2) LFTs abnormal: Comment: hx fatty liver Code(s): R94.5 - Abnormal results of liver function studies (3) Muscle spasm: Code(s): M62.838 - Other muscle spasm (4) Narcotic dependence: Code(s): F11.20 - Opioid dependence, uncomplicated (5) Pain management: Code(s): R52 - Pain, unspecified (6) Spinal stenosis, lumbar: Code(s): M48.061 - Spinal stenosis, lumbar region without neurogenic claudication Qualifiers: Neurogenic claudication status: with neurogenic claudication Qualified Code(s): M48.062 - Spinal stenosis, lumbar region with neurogenic claudication (7) Sacroiliitis: Code(s): M46.1 - Sacroiliitis, not elsewhere classified Plan Patient is 68-year-old female came in today for her medication refill Her liver enzymes has gotten worse again patient is seeing Dr. Roberts for management Patient history of failed back syndrome She is doing well with fentanyl patch and oxycodone for breakthrough pain Patient is complying with the treatment signs of abuse Medication refill provided Pain contract renewed Medications: Refilled fentanyl 50 mcg/hr 1 patch transdermal Q48H 30 days 15 ea 0RF F11.20 - Opioid dependence, uncomplicated, M50.20 - Other cervical disc displacement, unspecified cervical region, M96.1 - Postlaminectomy syndrome, not elsewhere classified, R52 - Pain, unspecified oxycodone Partial Fill upon patient request. 5 mg PO DAILY 30 days PRN 30 tabs 0RF pain tizanidine 4 mg PO BEDTIME 90 days PRN 90 tabs 1RF for muscle spasm M62.838 - Other muscle spasm Coding Level of Care Code Est Pt Level 3 (34351) Complex EM visit Add On G2211 Diagnoses Failed back syndrome M96.1 LFTs abnormal R94.5 Muscle spasm M62.838 Narcotic dependence F11.20 Pain management R52 Spinal stenosis of lumbar region with neurogenic claudication M48.062 Neurogenic claudication status: with neurogenic claudication Sacroiliitis M46.1 Additional Codes SACHIN-7 Assessment Billing - SACHIN-7 Assessment Tool: SACHIN-7 Assessment 10069 ([id number])
== END 2024-02-05 12:06 | disposition home or self-care (01) ==
PROVIDERS: PCP Internal Medicine; Visit Provider Internal Medicine
DX: M96.1 Postlaminectomy syndrome, not elsewhere classified (principal); F11.20 Opioid dependence, uncomplicated; M46.1 Sacroiliitis, not elsewhere classified; R94.5 Abnormal results of liver function studies; M62.838 Other muscle spasm; R52 Pain, unspecified; M48.062 Spinal stenosis, lumbar region with neurogenic claudication
CPT/HCPCS: 99213; G2211

== ENCOUNTER 2024-03-04 12:00 | Outpatient (AMB) | payer MEDICARE, MEDICAID, SELFPAY ==
--- NOTE | 2024-03-04 12:03 | A.OFFPC_ITS ---
Vital Signs 03/04/24 12:07 Height 5 ft 4 in Weight 158 lb 6 oz BMI 27.2 BP 120/70 Blood Pressure Location Lt brachial Position Sitting Pulse 93 Pulse Source Pulse Oximeter Pulse Oximetry (%) 95 Oxygen Delivery Method Room Air Intake Visit Reasons: 1 month fu Allergies duloxetine [From Cymbalta] Allergy (Intermediate, Verified 03/04/24 12:03) Gastrointestinal Upset gabapentin Allergy (Intermediate, Verified 03/04/24 12:03) Gastrointestinal Upset milnacipran [From Savella] Allergy (Intermediate, Verified 03/04/24 12:03) Gastrointestinal Upset naloxegol [Movantik] Allergy (Intermediate, Verified 03/04/24 12:03) Gastrointestinal Upset pregabalin [From Lyrica] Allergy (Intermediate, Verified 03/04/24 12:03) Gastrointestinal Upset Medication List - Last Reconciled 03/04/24 by Tram Darby MD albuterol sulfate 90 mcg/actuation 1 - 2 puffs PO Q4-6H PRN 30 days amlodipine 10 mg PO DAILY 90 days blood sugar diagnostic ([employer] Ultra Blue Test Strip) patient to check blood sugar 3 times daily blood-glucose meter (FreeStyle Lite Meter kit) patient to check blood sugar 3 times daily blood-glucose meter (OneTouch Ultra2 Meter) Patient to check blood sugar 3 times daily rzblnemefb-pgqijyqjgygra-gunt 50-325-40 mg 1 tab PO Q6H PRN famotidine 40 mg PO BEDTIME fentanyl 50 mcg/hr 1 patch transdermal Q48H 30 days insulin glargine (Lantus Solostar U-100 Insulin) 30 units (0.3 mL) subcut DAILY 90 days latanoprost 0.005% 1 drp ophthalmic (eye) BEDTIME lisinopril 40 mg PO DAILY 90 days omeprazole 20 mg PO DAILY ondansetron HCl 4 mg PO ONCE PRN 30 days oxycodone 5 mg PO DAILY PRN 30 days pen needle, diabetic qd pen needle, diabetic qd sucralfate (Carafate) 1 g PO BID sumatriptan succinate 50 mg PO ONCE PRN 30 days tizanidine 4 mg PO BEDTIME PRN 90 days Tobacco use date assessed: 03/04/24 Fall risk assessment: No Falls in past year Last assessed Fall Risk: 03/04/24 Dental Screening Dental Screen Date: 03/04/24 Did you have a dental visit in the last 12 months?: Yes Did you have a dental problem in the last 6 months where you did not have access to dental care?: No Was dental information given to patient?: Patient has dentist HPI 1 month fu HPI Details Patient is 68-year-old female came in today for her medication refill Her neck is causing pain, pain is radiating to both her arms Patient says that it is very difficult for her to drive. Muscle relaxer does help Patient was instructed to start taking that 3 times a day for next 1 week I have sent prednisone for the patient We will set up a telephone visit next week to see how she is doing Her hemoglobin A1c is 7.5% checked today LFT management through Dr. 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 Mother Stomach cancer Social History Housing: House Alcohol intake: never Patient Tobacco Use Status: Never used Tobacco e-Cigarette/Vaping Use: Never Used service: No Current occupational status: disabled Cognitive needs: No Hearing needs: No Vision needs: Yes Questionnaire Thrive Questionnaire Date Thrive assessed: 02/05/24 AUDIT C Alcohol Use Questionnaire (AUDIT-C) 1. How often do you have a drink containing alcohol?: Never 3. How often do you have six or more drinks on one occasion?: Never Total Score: 0 Score Reviewed/Action Taken: Yes SACHIN-7 AMB Questionnaire SACHIN-7 Date SACHIN - 7 assessed: 02/05/24 Source: Developed by Drs. Tommy Graham, Marnie Ford, Sebastien Vaughn and colleagues, with an educational mayito from [employer]. Review of Systems Const Denies chills and Denies fever(s) ENT Denies epistaxis and Denies nasal discharge Card Denies chest pain Resp Denies chest congestion, Denies cough and Denies hemoptysis GI Denies diarrhea and Denies nausea Skin/Breast Denies rash Neuro Reports no additional complaints Psych Reports no additional complaints Endo Reports no additional complaints Physical exam (Primary Care) Vital Signs: Last Vital Signs Pulse 93 03/04/24 12:07 BP 120/70 03/04/24 12:07 Pulse Ox 95 03/04/24 12:07 Oxygen Delivery Method Room Air 03/04/24 12:07 BMI result Body Mass Index 27.2 Tobacco/Smoking Status: Tobacco use Status Tobacco use date assessed 03/04/24 03/04/24 12:11 Patient Tobacco Use Status Never used Tobacco 03/04/24 12:11 e-Cigarette/Vaping Use Never Used 03/04/24 12:11 Thrive Assessment: Date of Thrive Assessment Date Thrive assessed 02/05/24 03/04/24 12:11 Const General: cooperative, comfortable and no acute distress Orientation/consciousness: patient oriented x3 HENMT Head: Yes normocephalic Eyes General: appearance normal, both eyes and all related structures Neck Other: Neck with limited range of motion secondary to pain going down both arms and around the neck. Resp Effort & Inspection: normal respiratory effort, no cough and no stridor Cardio Rhythm: regular rhythm Heart sounds: S1 normal heart sound present and S2 normal heart sound present Skin General skin exam: turgor normal Neuro General: patient oriented x3, tone normal and moves all extremities Extrem Right lower extremity: no edema Left lower extremity: no edema Results AMB Hemoglobin A1c AMB Hemoglobin A1c 7.5 % Last Edit by Juve Arevalo CMA on 03/04/24 12: 35 AMB Hemoglobin A1c previously reported as [id number] Juve Arevalo 03/04/24 12:35 Results Reviewed Results Reviewed: Laboratory Last Values Hgb A1c (Clinic) 7.5 % (4.0-6.0) H 03/04/24 12:25 Assessment and Plan Assessment & Plan (1) Cervical radiculitis: Code(s): M54.12 - Radiculopathy, cervical region (2) Failed back syndrome: Comment: uses fentanyl patch & oxycodone Code(s): M96.1 - Postlaminectomy syndrome, not elsewhere classified (3) LFTs abnormal: Comment: hx fatty liver Code(s): R94.5 - Abnormal results of liver function studies (4) Muscle spasm: Code(s): M62.838 - Other muscle spasm (5) Narcotic dependence: Code(s): F11.20 - Opioid dependence, uncomplicated (6) Pain management: Code(s): R52 - Pain, unspecified (7) Spinal stenosis, lumbar: Code(s): M48.061 - Spinal stenosis, lumbar region without neurogenic claudication Qualifiers: Neurogenic claudication status: with neurogenic claudication Qualified Code(s): M48.062 - Spinal stenosis, lumbar region with neurogenic claudication (8) Sacroiliitis: Code(s): M46.1 - Sacroiliitis, not elsewhere classified Plan Patient is 68-year-old female came in today for her medication refill Her neck is causing pain, pain is radiating to both her arms Patient says that it is very difficult for her to drive. Muscle relaxer does help Patient was instructed to start taking that 3 times a day for next 1 week I have sent prednisone for the patient We will set up a telephone visit next week to see how she is doing Her hemoglobin A1c is 7.5% checked today LFT management through Dr. Roberts Patient history of failed back syndrome She is doing well with fentanyl patch and oxycodone for breakthrough pain Patient is complying with the treatment signs of abuse Medication refill provided Orders: Orders AMB Hemoglobin A1c Today Z13.9 - Encounter for screening, unspecified Medications: New prednisone 20 mg PO DAILY 5 tabs 0RF 5 days Refilled fentanyl 50 mcg/hr 1 patch transdermal Q48H 15 ea 0RF 30 days F11.20 - Opioid dependence, uncomplicated, M50.20 - Other cervical disc displacement, unspecified cervical region, M96.1 - Postlaminectomy syndrome, not elsewhere classified, R52 - Pain, unspecified oxycodone Partial Fill upon patient request. 5 mg PO DAILY PRN 30 tabs 0RF pain 30 days Coding Level of Care Code Est Pt Level 4 (75415) Diagnoses Cervical radiculitis M54.12 Failed back syndrome M96.1 LFTs abnormal R94.5 Muscle spasm M62.838 Narcotic dependence F11.20 Pain management R52 Spinal stenosis of lumbar region with neurogenic claudication M48.062 Neurogenic claudication status: with neurogenic claudication Sacroiliitis M46.1
[2024-03-04 12:07] VITALS: BP 120/70; PULSE 93; O2SAT 95; BMI 27.2
== END 2024-03-04 12:26 | disposition home or self-care (01) ==
PROVIDERS: PCP Internal Medicine; Visit Provider Internal Medicine
DX: M54.12 Radiculopathy, cervical region (principal); M96.1 Postlaminectomy syndrome, not elsewhere classified; R94.5 Abnormal results of liver function studies; M62.838 Other muscle spasm; F11.20 Opioid dependence, uncomplicated; R52 Pain, unspecified; M48.062 Spinal stenosis, lumbar region with neurogenic claudication; M46.1 Sacroiliitis, not elsewhere classified; Z13.9 Encounter for screening, unspecified
CPT/HCPCS: 83036; 99214

== ENCOUNTER 2024-04-07 12:01 | Outpatient (AMB) | payer MEDICARE, MEDICAID, SELFPAY ==
[2024-04-07 12:03] VITALS: BP 120/62; PULSE 78; O2SAT 96; BMI 27.4
--- NOTE | 2024-04-07 12:03 | MHC.PC.OV ---
Vital Signs 04/07/24 12:03 Height 5 ft 4 in Weight 159 lb 8 oz BMI 27.4 BP 120/62 Blood Pressure Location Lt brachial Position Sitting Pulse 78 Pulse Source Pulse Oximeter Pulse Oximetry (%) 96 Oxygen Delivery Method Room Air Intake Visit Reasons: 4 weeks f/up Allergies duloxetine [From Cymbalta] Allergy (Intermediate, Verified 04/07/24 12:03) Gastrointestinal Upset gabapentin Allergy (Intermediate, Verified 04/07/24 12:03) Gastrointestinal Upset milnacipran [From Savella] Allergy (Intermediate, Verified 04/07/24 12:03) Gastrointestinal Upset naloxegol [Movantik] Allergy (Intermediate, Verified 04/07/24 12:03) Gastrointestinal Upset pregabalin [From Lyrica] Allergy (Intermediate, Verified 04/07/24 12:03) Gastrointestinal Upset Medication List - Last Reconciled 04/07/24 by Tram Darby MD albuterol sulfate 90 mcg/actuation 1 - 2 puffs PO Q4-6H PRN 30 days amlodipine 10 mg PO DAILY 90 days blood sugar diagnostic ([employer] Ultra Blue Test Strip) patient to check blood sugar 3 times daily blood-glucose meter (FreeStyle Lite Meter kit) patient to check blood sugar 3 times daily blood-glucose meter (OneTouch Ultra2 Meter) Patient to check blood sugar 3 times daily fjtmrahgkv-oviuciasclnlq-daxo 50-325-40 mg 1 tab PO Q6H PRN famotidine 40 mg PO BEDTIME fentanyl 50 mcg/hr 1 patch transdermal Q48H 30 days insulin glargine (Lantus Solostar U-100 Insulin) 30 units (0.3 mL) subcut DAILY 90 days latanoprost 0.005% 1 drp ophthalmic (eye) BEDTIME lisinopril 40 mg PO DAILY 90 days omeprazole 20 mg PO DAILY ondansetron HCl 4 mg PO ONCE PRN 30 days oxycodone 5 mg PO DAILY PRN 30 days pen needle, diabetic qd pen needle, diabetic qd prednisone 20 mg PO DAILY 5 days sucralfate (Carafate) 1 g PO BID sumatriptan succinate 50 mg PO ONCE PRN 30 days tizanidine 4 mg PO BEDTIME PRN 90 days Tobacco use date assessed: 04/07/24 Fall risk assessment: No Falls in past year Last assessed Fall Risk: 04/07/24 Dental Screening Dental Screen Date: 04/07/24 Did you have a dental visit in the last 12 months?: No Did you have a dental problem in the last 6 months where you did not have access to dental care?: No Was dental information given to patient?: Patient has dentist HPI 4 weeks f/up HPI Details Patient is 68-year-old female came in today for her regular follow-up appointment Patient says that couple of times she felt chest discomfort, but she was also feeling that visit that time Discomfort lasted few minutes Also 1 time she was driving to congregational her daughter was in front of her driving, and for 5 minute she forgot where she was and where she is going After that she never had that episode. She has been evaluated by screen door maker in 2020 for high cholesterol, I will book her another appointment since she is having some chest discomfort as well Patient is taking no statin because of elevated liver enzymes which is a chronic problem and is being evaluated by Gastro Patient have a history of insulin-dependent diabetes, fatty liver with elevated liver enzymes and chronic abdominal cramping, chronic GERD Abdominal symptoms managed by Dr. Roberts [facility] Patient have failed back syndrome history of surgery lumbar spine, she has lumbar spine stenosis, cervical spine radiculitis degenerated thoracic spine, causing muscle spasms She has hypertension, blood pressure fluctuate, taking medication as prescribed and tolerating Failed back syndrome: She is opioid dependent for pain management and is on fentanyl patch and oxycodone few tablets for breakthrough pain Patient is complying with the treatment plan She is aware of side effects of narcotics. 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 Mother Stomach cancer Social History Housing: House Alcohol intake: never Patient Tobacco Use Status: Never used Tobacco e-Cigarette/Vaping Use: Never Used service: No Current occupational status: disabled Cognitive needs: No Hearing needs: No Vision needs: Yes Questionnaire PHQ-9 Over the last 2 weeks, how often have you been bothered by any of the following problems? 1. Little interest or pleasure in doing things: not at all 2. Feeling down, depressed, or hopeless: not at all 3. Trouble falling or staying asleep, or sleeping too much: not at all 4. Feeling tired or having little energy: not at all 5. Poor appetite or overeating: not at all 6. Feeling bad about yourself - or that you are a failure or have let yourself or your family down: not at all 7. Trouble concentrating on things, such as reading the newspaper or watching television: not at all 8. Moving or speaking so slowly that other people could have noticed. Or the opposite - being so fidgety or restless that you have been moving around a lot more than usual: not at all 9. Thoughts that you would be better off or of hurting yourself in some way: not at all Total score: 0 Depression Screening Interpretation: Negative Depression Screening Done: Yes [id number] - PHQ-9 Billing: Yes Source: Developed by Drs. Tommy Graham, Marnie Ford, Sebastien Vaughn and colleagues, with an educational mayito from [employer]. Thrive Questionnaire Date Thrive assessed: 04/07/24 I am a: Patient What is your living situation today?: I have a steady place to live Within the past 12 months, did the food you bought not last and you didn't have the money to get more?: I choose not to answer this question Within the past 12 months, did you worry whether your food would run out before you got money to buy more?: I choose not to answer this question Do you have trouble paying for medicines?: No Do you have trouble getting transportation to medical appointments?: No Do you have trouble paying your heating and electricity bill?: No Do you have trouble taking care of your child, family member or friend?: No Do you have trouble with day-to-day activities such as bathing, preparing meals, shopping, managing finances, etc.?: No Are you currently unemployed and looking for a job?: No Are you interested in more education?: No Please select the resources that you would like help with: None Currently or been in a relationship where the following occur: I choose not to answer THRIVE Score: 0 AUDIT C Alcohol Use Questionnaire (AUDIT-C) 1. How often do you have a drink containing alcohol?: Never 3. How often do you have six or more drinks on one occasion?: Never Total Score: 0 Score Reviewed/Action Taken: Yes SACHIN-7 AMB Questionnaire SACHIN-7 Date SACHIN - 7 assessed: 04/07/24 Feeling nervous, anxious, or on edge: 0 = Not at all Not being able to stop or control worryin = Not at all Worrying too much about different things: 0 = Not at all Trouble relaxin = Not at all Being so restless that it is hard to sit still: 0 = Not at all Becoming easily annoyed or irritable: 0 = Not at all Feeling afraid as if something awful might happen: 0 = Not at all Total SACHIN-7 score (0-4 normal; 5-9 mild; 10-14 moderate; 15-21 severe): 0 Source: Developed by Drs. Tommy Graham, Marnie Ford, Sebastien Vaughn and colleagues, with an educational mayito from [employer]. SACHIN-7 Assessment Billing SACHIN-7 Assessment Tool: SACHIN-7 Assessment 59296 Review of Systems Const Denies chills and Denies fever(s) ENT Denies epistaxis and Denies nasal discharge Resp Denies chest congestion, Denies cough and Denies hemoptysis GI Denies diarrhea and Denies nausea Skin/Breast Denies rash Neuro Reports no additional complaints Psych Reports no additional complaints Endo Reports no additional complaints Physical exam (Primary Care) Vital Signs: Last Vital Signs Pulse 78 04/07/24 12:03 BP 120/62 04/07/24 12:03 Pulse Ox 96 04/07/24 12:03 Oxygen Delivery Method Room Air 04/07/24 12:03 BMI result Body Mass Index 27.4 Tobacco/Smoking Status: Tobacco use Status Tobacco use date assessed 04/07/24 04/07/24 12:07 Patient Tobacco Use Status Never used Tobacco 04/07/24 12:07 e-Cigarette/Vaping Use Never Used 04/07/24 12:07 PHQ-9: PHQ-9 Score PHQ-9: Total score 0 04/07/24 12:12 Depression Screening Interpretation: Negative Thrive Assessment: Date of Thrive Assessment Date Thrive assessed 04/07/24 04/07/24 12:07 Currently or been in a relationship where the following occur: I choose not to answer Const General: cooperative, comfortable and no acute distress Orientation/consciousness: patient oriented x3 HENMT Head: Yes normocephalic Eyes General: appearance normal, both eyes and all related structures Neck Neck: Yes supple Resp Effort & Inspection: normal respiratory effort, no cough and no stridor Cardio Rhythm: regular rhythm Heart sounds: S1 normal heart sound present and S2 normal heart sound present Skin General skin exam: turgor normal Neuro General: patient oriented x3, tone normal and moves all extremities Extrem Right lower extremity: no edema Left lower extremity: no edema Coding Level of Care Code Est Pt Level 4 (77626) Complex EM visit Add On G2211 Diagnoses Chest discomfort R07.89 Lipid disorder E78.9 Diabetes 1.5, managed as type 1 E13.9 MCFP (current) use of insulin Z79.4 Hypertension, essential I10 LFTs abnormal R94.5 Narcotic dependence F11.20 Chronic GERD K21.9 Radiculitis of right cervical region M54.12 Other osteoarthritis of spine, thoracic region M47.894 Spinal osteoarthritis complication: other spinal osteoarthritis Failed back syndrome M96.1 Muscle spasm M62.838 Pain management R52 Spinal stenosis of lumbar region with neurogenic claudication M48.062 Neurogenic claudication status: with neurogenic claudication Additional Codes SACHIN-7 Assessment Billing - SACHIN-7 Assessment Tool: SACHIN-7 Assessment [id number] ([id number]) Assessment & Plan Assessment & Plan (1) Chest discomfort: Code(s): R07.89 - Other chest pain Category: Medical (2) Lipid disorder: Code(s): E78.9 - Disorder of lipoprotein metabolism, unspecified Category: Medical (3) Diabetes 1.5, managed as type 1: Comment: taking lantus insulin Code(s): E13.9 - Other specified diabetes mellitus without complications Category: Medical (4) salvage determiner (current) use of insulin: Code(s): Z79.4 - salvage determiner (current) use of insulin Category: Medical (5) Hypertension, essential: Code(s): I10 - Essential (primary) hypertension Category: Medical (6) LFTs abnormal: Comment: hx fatty liver Code(s): R94.5 - Abnormal results of liver function studies Category: Medical (7) Narcotic dependence: Code(s): F11.20 - Opioid dependence, uncomplicated Category: Medical (8) Chronic GERD: Code(s): K21.9 - Gastro-esophageal reflux disease without esophagitis Category: Medical (9) Radiculitis of right cervical region: Code(s): M54.12 - Radiculopathy, cervical region Category: Medical (10) DJD (degenerative joint disease) of thoracic spine: Code(s): M47.814 - Spondylosis without myelopathy or radiculopathy, thoracic region Category: Medical Qualifiers: Spinal osteoarthritis complication: other spinal osteoarthritis Qualified Code(s): M47.894 - Other spondylosis, thoracic region (11) Failed back syndrome: Comment: uses fentanyl patch & oxycodone Code(s): M96.1 - Postlaminectomy syndrome, not elsewhere classified Category: Medical (12) Muscle spasm: Code(s): M62.838 - Other muscle spasm Category: Medical (13) Pain management: Code(s): R52 - Pain, unspecified Category: Medical (14) Spinal stenosis, lumbar: Code(s): M48.061 - Spinal stenosis, lumbar region without neurogenic claudication Category: Medical Qualifiers: Neurogenic claudication status: with neurogenic claudication Qualified Code(s): M48.062 - Spinal stenosis, lumbar region with neurogenic claudication Plan Patient is 68-year-old female came in today for her regular follow-up appointment Patient says that couple of times she felt chest discomfort, but she was also feeling that visit that time Discomfort lasted few minutes Also 1 time she was driving to congregational her daughter was in front of her driving, and for 5 minute she forgot where she was and where she is going After that she never had that episode. She has been evaluated by screen door maker in 2020 for high cholesterol, I will book her another appointment since she is having some chest discomfort as well Patient is taking no statin because of elevated liver enzymes which is a chronic problem and is being evaluated by Gastro Patient have a history of insulin-dependent diabetes, fatty liver with elevated liver enzymes and chronic abdominal cramping, chronic GERD Abdominal symptoms managed by Dr. Roberts [facility] Patient have failed back syndrome history of surgery lumbar spine, she has lumbar spine stenosis, cervical spine radiculitis degenerated thoracic spine, causing muscle spasms She has hypertension, blood pressure fluctuate, taking medication as prescribed and tolerating Failed back syndrome: She is opioid dependent for pain management and is on fentanyl patch and oxycodone few tablets for breakthrough pain Patient is complying with the treatment plan She is aware of side effects of narcotics. Lipid disorder managed with the help of lipid medication Migraine headache stable Regular follow-up every 3 months and monthly visit for narcotic medication refill Orders: Referrals Cardiology Referral E78.9 - Disorder of lipoprotein metabolism, unspecified, R07.89 - Other chest pain Medications: Refilled oxycodone Partial Fill upon patient request. 5 mg PO DAILY 30 days PRN 30 tabs 0RF pain pen needle, diabetic qd 100 ea 3RF E13.9 - Other specified diabetes mellitus without complications, Z79.4 - MCFP (current) use of insulin fentanyl 50 mcg/hr 1 patch transdermal Q48H 30 days 15 ea 0RF F11.20 - Opioid dependence, uncomplicated, M50.20 - Other cervical disc displacement, unspecified cervical region, M96.1 - Postlaminectomy syndrome, not elsewhere classified, R52 - Pain, unspecified
== END 2024-04-07 12:26 | disposition home or self-care (01) ==
PROVIDERS: PCP Internal Medicine; Visit Provider Internal Medicine
DX: R07.89 Other chest pain (principal); E78.9 Disorder of lipoprotein metabolism, unspecified; E13.9 Other specified diabetes mellitus without complications; Z79.4 Long term (current) use of insulin; I10 Essential (primary) hypertension; R94.5 Abnormal results of liver function studies; F11.20 Opioid dependence, uncomplicated; K21.9 Gastro-esophageal reflux disease without esophagitis; M54.12 Radiculopathy, cervical region; M47.894 Other spondylosis, thoracic region; M96.1 Postlaminectomy syndrome, not elsewhere classified; M62.838 Other muscle spasm; R52 Pain, unspecified; M48.062 Spinal stenosis, lumbar region with neurogenic claudication

== ENCOUNTER → 2024-04-07 12:01 | Outpatient (BNVA) | payer MEDICARE, MEDICAID, SELFPAY | PROVIDERS: PCP Internal Medicine; Visit Provider Internal Medicine | DX: R07.89 Other chest pain (principal); E78.9 Disorder of lipoprotein metabolism, unspecified; E13.9 Other specified diabetes mellitus without complications; I10 Essential (primary) hypertension; R94.5 Abnormal results of liver function studies; F11.20 Opioid dependence, uncomplicated; K21.9 Gastro-esophageal reflux disease without esophagitis; M54.12 Radiculopathy, cervical region; M47.894 Other spondylosis, thoracic region; M96.1 Postlaminectomy syndrome, not elsewhere classified; M62.838 Other muscle spasm; M48.062 Spinal stenosis, lumbar region with neurogenic claudication; Z79.4 Long term (current) use of insulin | CPT/HCPCS: 96127; 99212 ==

== ENCOUNTER 2024-05-08 12:26 | Outpatient (AMB) | payer MEDICARE, MEDICAID, SELFPAY ==
[2024-05-08 12:27] VITALS: BP 132/62; PULSE 106; O2SAT 98; BMI 27.0
--- NOTE | 2024-05-08 12:27 | A.OFFPC_ITS ---
Vital Signs 05/08/24 12:27 Height 5 ft 4 in Weight 157 lb 8 oz BMI 27.0 BP 132/62 Blood Pressure Location Lt brachial Position Sitting Pulse 106 H Pulse Source Pulse Oximeter Pulse Oximetry (%) 98 Oxygen Delivery Method Room Air Intake Visit Reasons: 4 weeks f/up Allergies duloxetine [From Cymbalta] Allergy (Intermediate, Verified 05/08/24 12:28) Gastrointestinal Upset gabapentin Allergy (Intermediate, Verified 05/08/24 12:28) Gastrointestinal Upset milnacipran [From Savella] Allergy (Intermediate, Verified 05/08/24 12:28) Gastrointestinal Upset naloxegol [Movantik] Allergy (Intermediate, Verified 05/08/24 12:28) Gastrointestinal Upset pregabalin [From Lyrica] Allergy (Intermediate, Verified 05/08/24 12:28) Gastrointestinal Upset Medication List - Last Reconciled 05/08/24 by Tram Darby MD albuterol sulfate 90 mcg/actuation 1 - 2 puffs PO Q4-6H PRN 30 days amlodipine 10 mg PO DAILY 90 days blood sugar diagnostic ([place] MR PhotoelectricityTouch Ultra Blue Test Strip) patient to check blood sugar 3 times daily blood-glucose meter (FreeStyle Lite Meter kit) patient to check blood sugar 3 times daily blood-glucose meter (OneTouch Ultra2 Meter) Patient to check blood sugar 3 times daily [id number]-jeczfiquszuir-xilk 50-325-40 mg 1 tab PO Q6H PRN famotidine 40 mg PO BEDTIME fentanyl 50 mcg/hr 1 patch transdermal Q48H 30 days insulin glargine (Lantus Solostar U-100 Insulin) 30 units (0.3 mL) subcut DAILY 90 days latanoprost 0.005% 1 drp ophthalmic (eye) BEDTIME lisinopril 40 mg PO DAILY 90 days omeprazole 20 mg PO DAILY ondansetron HCl 4 mg PO ONCE PRN 30 days oxycodone 5 mg PO DAILY PRN 30 days pen needle, diabetic qd pen needle, diabetic qd pen needle, diabetic qd prednisone 20 mg PO DAILY 5 days sucralfate (Carafate) 1 g PO BID sumatriptan succinate 50 mg PO ONCE PRN 30 days tizanidine 4 mg PO BEDTIME PRN 90 days Tobacco use date assessed: 05/08/24 Fall risk assessment: No Falls in past year Last assessed Fall Risk: 05/08/24 Dental Screening Dental Screen Date: 05/08/24 Did you have a dental visit in the last 12 months?: Yes Did you have a dental problem in the last 6 months where you did not have access to dental care?: No Was dental information given to patient?: Patient has dentist HPI 4 weeks f/up HPI Details Patient is 68-year-old female came in today for her monthly visit for medication refill Failed back syndrome: She is opioid dependent for pain management and is on fentanyl patch and oxycodone few tablets for breakthrough pain Patient is complying with the treatment plan She is aware of side effects of narcotics She will be due for urine drug screen in June order placed She is having epigastric discomfort today which she gets off and on I have refilled her Carafate, also instructed patient to just drink clear liquids over the weekend and rest of the stomach She is already established with [facility] There is no vomiting no diarrhea PFSH Medical History Asthma Hx of irritable bowel syndrome Pain management Narcotic dependence Herniated nucleus pulposus, cervical Hypertension, essential Muscle spasm 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 Mother Stomach cancer Social History Housing: House Alcohol intake: never Patient Tobacco Use Status: Never used Tobacco e-Cigarette/Vaping Use: Never Used service: No Current occupational status: disabled Cognitive needs: No Hearing needs: No Vision needs: Yes Questionnaire Thrive Questionnaire Date Thrive assessed: 05/08/24 I am a: Patient What is your living situation today?: I have a steady place to live Within the past 12 months, did the food you bought not last and you didn't have the money to get more?: I choose not to answer this question Within the past 12 months, did you worry whether your food would run out before you got money to buy more?: I choose not to answer this question Do you have trouble paying for medicines?: No Do you have trouble getting transportation to medical appointments?: No Do you have trouble paying your heating and electricity bill?: No Do you have trouble taking care of your child, family member or friend?: No Do you have trouble with day-to-day activities such as bathing, preparing meals, shopping, managing finances, etc.?: No Are you currently unemployed and looking for a job?: No Are you interested in more education?: No Please select the resources that you would like help with: None Currently or been in a relationship where the following occur: I choose not to answer THRIVE Score: 0 AUDIT C Alcohol Use Questionnaire (AUDIT-C) 1. How often do you have a drink containing alcohol?: Never 3. How often do you have six or more drinks on one occasion?: Never Total Score: 0 Score Reviewed/Action Taken: Yes SACHIN-7 AMB Questionnaire SACHIN-7 Date SACHIN - 7 assessed: 04/07/24 Source: Developed by Drs. Tommy Graham, Marnie Ford, Sebastien Vaughn and colleagues, with an educational mayito from [employer]. Review of Systems Const All systems reviewed & are unremarkable except as noted in HPI and below Physical exam (Primary Care) Vital Signs: Last Vital Signs Pulse 106 H 05/08/24 12:27 BP 132/62 05/08/24 12:27 Pulse Ox 98 05/08/24 12:27 Oxygen Delivery Method Room Air 05/08/24 12:27 BMI result Body Mass Index 27.0 Tobacco/Smoking Status: Tobacco use Status Tobacco use date assessed 05/08/24 05/08/24 12:30 Patient Tobacco Use Status Never used Tobacco 05/08/24 12:30 e-Cigarette/Vaping Use Never Used 05/08/24 12:30 Thrive Assessment: Date of Thrive Assessment Date Thrive assessed 05/08/24 05/08/24 12:30 Currently or been in a relationship where the following occur: I choose not to answer Const General: no acute distress Orientation/consciousness: patient oriented x3 Eyes General: appearance normal, both eyes and all related structures Resp Effort & Inspection: normal respiratory effort and able to speak in complete sentences GI Other: Epigastric discomfort with pressure, bowel sounds positive Neuro General: patient oriented x3 Psych Mental Status: mental status grossly normal Coding Level of Care Code Est Pt Level 3 (07225) Diagnoses Epigastric pain R10.13 Failed back syndrome M96.1 Narcotic dependence F11.20 Hypertension, essential I10 LFTs abnormal R94.5 Chronic GERD K21.9 Radiculitis of right cervical region M54.12 Other osteoarthritis of spine, thoracic region M47.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 Spinal osteoarthritis complication: other spinal osteoarthritis Pain management R52 Spinal stenosis of lumbar region with neurogenic claudication M48.062 Neurogenic claudication status: with neurogenic claudication Assessment & Plan Assessment & Plan (1) Epigastric pain: Code(s): R10.13 - Epigastric pain Category: Medical (2) Failed back syndrome: Comment: uses fentanyl patch & oxycodone Code(s): M96.1 - Postlaminectomy syndrome, not elsewhere classified Category: Medical (3) Narcotic dependence: Code(s): F11.20 - Opioid dependence, uncomplicated Category: Medical (4) Hypertension, essential: Code(s): I10 - Essential (primary) hypertension Category: Medical (5) LFTs abnormal: Comment: hx fatty liver Code(s): R94.5 - Abnormal results of liver function studies Category: Medical (6) Chronic GERD: Code(s): K21.9 - Gastro-esophageal reflux disease without esophagitis Category: Medical (7) Radiculitis of right cervical region: Code(s): M54.12 - Radiculopathy, cervical region Category: Medical (8) DJD (degenerative joint disease) of thoracic spine: Code(s): M47.814 - Spondylosis without myelopathy or radiculopathy, thoracic region Category: Medical Qualifiers: Spinal osteoarthritis complication: other spinal osteoarthritis Qualified Code(s): M47.894 - Other spondylosis, thoracic region (9) Pain management: Code(s): R52 - Pain, unspecified Category: Medical (10) Spinal stenosis, lumbar: Code(s): M48.061 - Spinal stenosis, lumbar region without neurogenic claudication Category: Medical Qualifiers: Neurogenic claudication status: with neurogenic claudication Qualified Code(s): M48.062 - Spinal stenosis, lumbar region with neurogenic claudication Plan Patient is 68-year-old female came in today for her monthly visit for medication refill Failed back syndrome: She is opioid dependent for pain management and is on fentanyl patch and oxycodone few tablets for breakthrough pain Patient is complying with the treatment plan She is aware of side effects of narcotics She will be due for urine drug screen in June order placed She is having epigastric discomfort today which she gets off and on I have refilled her Carafate, also instructed patient to just drink clear liquids over the weekend and rest of the stomach She is already established with [facility] There is no vomiting no diarrhea Orders: Orders Microalbumin, Random (w Creat) 6 Weeks E13.9 - Other specified diabetes mellitus without complications, F11.20 - Opioid dependence, uncomplicated, I10 - Essential (primary) hypertension, K21.9 - Gastro-esophageal reflux disease without esophagitis, M47.894 - Other spondylosis, thoracic region, M54.12 - Radiculopathy, cervical region, M96.1 - Postlaminectomy syndrome, not elsewhere classified, R52 - Pain, unspecified, R94.5 - Abnormal results of liver function studies Complete Blood Count Auto Diff 6 Weeks E13.9 - Other specified diabetes mellitus without complications, F11.20 - Opioid dependence, uncomplicated, I10 - Essential (primary) hypertension, K21.9 - Gastro-esophageal reflux disease without esophagitis, M47.894 - Other spondylosis, thoracic region, M54.12 - Radiculopathy, cervical region, M96.1 - Postlaminectomy syndrome, not elsewhere classified, R52 - Pain, unspecified, R94.5 - Abnormal results of liver function studies Comprehensive Met. Panel 6 Weeks E13.9 - Other specified diabetes mellitus without complications, F11.20 - Opioid dependence, uncomplicated, I10 - Essential (primary) hypertension, K21.9 - Gastro-esophageal reflux disease without esophagitis, M47.894 - Other spondylosis, thoracic region, M54.12 - Radiculopathy, cervical region, M96.1 - Postlaminectomy syndrome, not elsewhere classified, R52 - Pain, unspecified, R94.5 - Abnormal results of liver function studies Drug Screen Urine 6 Weeks E13.9 - Other specified diabetes mellitus without complications, F11.20 - Opioid dependence, uncomplicated, I10 - Essential (primary) hypertension, K21.9 - Gastro-esophageal reflux disease without esophagitis, M47.894 - Other spondylosis, thoracic region, M54.12 - Ra diculopathy, cervical region, M96.1 - Postlaminectomy syndrome, not elsewhere classified, R52 - Pain, unspecified, R94.5 - Abnormal results of liver function studies Hemoglobin A1c 6 Weeks E13.9 - Other specified diabetes mellitus without complications, F11.20 - Opioid dependence, uncomplicated, I10 - Essential (primary) hypertension, K21.9 - Gastro-esophageal reflux disease without esophagitis, M47.894 - Other spondylosis, thoracic region, M54.12 - Radiculopathy, cervical region, M96.1 - Postlaminectomy syndrome, not elsewhere classified, R52 - Pain, unspecified, R94.5 - Abnormal results of liver function studies Opiates GCMS Expanded, Ur 6 Weeks E13.9 - Other specified diabetes mellitus without complications, F11.20 - Opioid dependence, uncomplicated, I10 - Essential (primary) hypertension, K21.9 - Gastro-esophageal reflux disease without esophagitis, M47.894 - Other spondylosis, thoracic region, M54.12 - Radiculopathy, cervical region, M96.1 - Postlaminectomy syndrome, not elsewhere classified, R52 - Pain, unspecified, R94.5 - Abnormal results of liver function studies Fentanyl, urine 6 Weeks E13.9 - Other specified diabetes mellitus without complications, F11.20 - Opioid dependence, uncomplicated, I10 - Essential (primary) hypertension, K21.9 - Gastro-esophageal reflux disease without esophagitis, M47.894 - Other spondylosis, thoracic region, M54.12 - Radiculopathy, cervical region, M96.1 - Postlaminectomy syndrome, not elsewhere classified, R52 - Pain, unspecified, R94.5 - Abnormal results of liver function studies Medications: Refilled oxycodone Partial Fill upon patient request. 5 mg PO DAILY 30 days PRN 30 tabs 0RF pain sucralfate (Carafate) 1 g PO BID 60 tabs 0RF fentanyl 50 mcg/hr 1 patch transdermal Q48H 30 days 15 ea 0RF F11.20 - Opioid dependence, uncomplicated, M50.20 - Other cervical disc displacement, unspecified cervical region, M96.1 - Postlaminectomy syndrome, not elsewhere classified, R52 - Pain, unspecified
== END 2024-05-08 13:29 | disposition home or self-care (01) ==
LOC: HO.HMCC 12:27
PROVIDERS: PCP Internal Medicine; Visit Provider Internal Medicine
DX: R10.13 Epigastric pain (principal); M96.1 Postlaminectomy syndrome, not elsewhere classified; F11.20 Opioid dependence, uncomplicated; I10 Essential (primary) hypertension; K21.9 Gastro-esophageal reflux disease without esophagitis; M54.12 Radiculopathy, cervical region; M47.894 Other spondylosis, thoracic region; R52 Pain, unspecified; M48.062 Spinal stenosis, lumbar region with neurogenic claudication

== ENCOUNTER → 2024-05-08 12:26 | Outpatient (BNVA) | payer MEDICARE, MEDICAID, SELFPAY | PROVIDERS: PCP Internal Medicine; Visit Provider Internal Medicine | DX: R10.13 Epigastric pain (principal); M96.1 Postlaminectomy syndrome, not elsewhere classified; I10 Essential (primary) hypertension; R94.5 Abnormal results of liver function studies; K21.9 Gastro-esophageal reflux disease without esophagitis; M54.12 Radiculopathy, cervical region; M47.894 Other spondylosis, thoracic region; M48.062 Spinal stenosis, lumbar region with neurogenic claudication; F11.20 Opioid dependence, uncomplicated | CPT/HCPCS: 99212 ==

== ENCOUNTER 2024-06-03 11:51 | Outpatient (REF) | payer MEDICARE, MEDICAID, SELFPAY ==
[2024-06-03 13:16] LABS: MANUAL DIFF FLAG NO
[2024-06-03 13:30] LABS: Basophils Percent Auto 0.5 % (0-2); Eosinophils Absolute Auto 0.1 X10*3/uL (0.0-0.4); Eosinophils Percent Auto 1.6 % (0-4); Hematocrit 40.5 % (37.0-47.0); Hemoglobin 13.5 g/dl (12.0-16.0); Imm Gran Abs Auto 0.02 X10*3/uL (0.00-0.03); Imm Gran Pct Auto 0.3 % (0.0-0.4); Lymphocytes Absolute Auto 2.3 X10*3/uL (1.2-4.9); Mean Corpuscular HGB Conc 33.3 g/dl (31.0-35.0); Mean Corpuscular Hemoglobin 29.6 pg (27.0-33.0); Mean Corpuscular Volume 88.8 fL (80.0-98.0); Mean Platelet Volume 11.9 fL (9.4-12.3); Monocytes Absolute Auto 0.6 X10*3/uL (0.1-1.2); Monocytes Percent Auto 7.3 % (2-11); Neutrophils Absolute Auto 4.5 x10*3/uL (2.0-8.3); Neutrophils Percent Auto 60.3 % (45-73); Platelet Count 189 X10*3/uL (160-400); Red Blood Count 4.56 X10*6/uL (4.20-5.50); Red Cell Distribution Width 13.5 % (11.0-16.0); White Blood Count 7.5 X10*3/uL (4.8-10.8)
[2024-06-03 13:40] LABS: Estimated Average Glucose 180 mg/dL; Hemoglobin A1C 213.1444 umol/L; Hemoglobin A1c % 7.9 % (<6.0); Total Hemoglobin (HGBA1C) 3402.4122 umol/L
[2024-06-03 14:05] LABS: Alanine Aminotransferase 88 U/L (0-31); Albumin Level 4.3 g/dL (3.5-5.0); Anion Gap 15 (12-20); Aspartate Amino Transferase 46 U/L (5-31); Bilirubin Total 0.5 mg/dL (0.0-1.0); Blood Urea Nitrogen 14 mg/dL (9-16); Calcium 9.9 mg/dL (8.4-10.2); Carbon Dioxide 28 mmol/L (22-29); Chloride 102 mmol/L (96-108); Estimated Glomerular Filt Rate 57; Glucose Random 164 mg/dL (60-115); Sodium 140 mmol/L (135-145); Total Protein 8.3 g/dL (6.5-8.0)
[2024-06-03 14:36] LABS: Alkaline Phosphatase 283 U/L (39-117)
[2024-06-03 16:40] LABS: Amphetamine Screen Urine Not Detected (Not Detect); Barbiturates, Urine Not Detected (Not Detect); Benzodiazepines Screen Urine Not Detected (Not Detect); Buprenorphine Scr Not Detected (Not Detect); Cannabinoid Screen Urine Not Detected (Not Detect); Cocaine Screen Urine Not Detected (Not Detect); Fentanyl, urine POSITIVE (Not Detect); Methadone Screen, Urine Not Detected (Not Detect); Opiate Screen Urine Not Detected (Not Detect); Oxycodone Screen Urine Not Detected (Not Detect); Phencyclidine Screen Urine Not Detected (Not Detect)
[2024-06-03 16:54] LABS: Creatinine Urine 94.81 mg/dL; Microalbumin Urine < 5.0 mg/L
[2024-06-05 15:17] LABS: Codeine, Ur NEGATIVE; Hydrocodone, Ur NEGATIVE; Hydromorphone, Ur NEGATIVE; Morphine, Ur NEGATIVE; Norhydrocodone, Ur NEGATIVE; Noroxycodone, Ur NEGATIVE; Oxycodone, Ur NEGATIVE; Oxymorphone, Ur NEGATIVE
== END 2024-06-03 11:52 | disposition home or self-care (01) ==
LOC: HO.HMGCLDS 11:51
PROVIDERS: PCP Internal Medicine; Visit Provider Internal Medicine
DX: E11.9 Type 2 diabetes mellitus without complications (principal); I10 Essential (primary) hypertension; G89.29 Other chronic pain; R10.84 Generalized abdominal pain; M96.1 Postlaminectomy syndrome, not elsewhere classified; R94.5 Abnormal results of liver function studies; K21.9 Gastro-esophageal reflux disease without esophagitis; M54.12 Radiculopathy, cervical region; M62.838 Other muscle spasm; M48.062 Spinal stenosis, lumbar region with neurogenic claudication; K05.10 Chronic gingivitis, plaque induced; Z79.4 Long term (current) use of insulin; Z79.891 Long term (current) use of opiate analgesic
CPT/HCPCS: 80053; 80307; 80365; 82570; 83036; 85025; 99212; G0480

== ENCOUNTER 2024-06-03 11:51 | Outpatient (AMB) | payer MEDICARE, MEDICAID, SELFPAY ==
[2024-06-03 11:58] VITALS: BP 144/66; PULSE 89; O2SAT 96; BMI 27.4
--- NOTE | 2024-06-03 11:58 | MHC.PC.OV ---
Vital Signs 06/03/24 11:58 Height 5 ft 4 in Weight 159 lb 8 oz BMI 27.4 BP 144/66 H Blood Pressure Location Rt brachial Position Sitting Pulse 89 Pulse Source Pulse Oximeter Pulse Oximetry (%) 96 Oxygen Delivery Method Room Air Intake Visit Reasons: 4 week follow up Allergies duloxetine [From Cymbalta] Allergy (Intermediate, Verified 06/03/24 12:00) Gastrointestinal Upset gabapentin Allergy (Intermediate, Verified 06/03/24 12:00) Gastrointestinal Upset milnacipran [From Savella] Allergy (Intermediate, Verified 06/03/24 12:00) Gastrointestinal Upset naloxegol [Movantik] Allergy (Intermediate, Verified 06/03/24 12:00) Gastrointestinal Upset pregabalin [From Lyrica] Allergy (Intermediate, Verified 06/03/24 12:00) Gastrointestinal Upset Medication List - Last Reconciled 06/03/24 by Tram Darby MD albuterol sulfate 90 mcg/actuation 1 - 2 puffs PO Q4-6H PRN 30 days amlodipine 10 mg PO DAILY 90 days blood sugar diagnostic (mobifriendsuch Ultra Blue Test Strip) patient to check blood sugar 3 times daily blood-glucose meter (FreeStyle Lite Meter kit) patient to check blood sugar 3 times daily blood-glucose meter (OneTouch Ultra2 Meter) Patient to check blood sugar 3 times daily tcymgoqsuk-bnmyixyhbsgpf-klbu 50-325-40 mg 1 tab PO Q6H PRN famotidine 40 mg PO BEDTIME fentanyl 50 mcg/hr 1 patch transdermal Q48H 30 days insulin glargine (Lantus Solostar U-100 Insulin) 30 units (0.3 mL) subcut DAILY 90 days latanoprost 0.005% 1 drp ophthalmic (eye) BEDTIME lisinopril 40 mg PO DAILY 90 days omeprazole 20 mg PO DAILY ondansetron HCl 4 mg PO ONCE PRN 30 days oxycodone 5 mg PO DAILY PRN 30 days pen needle, diabetic qd pen needle, diabetic qd pen needle, diabetic qd sucralfate (Carafate) 1 g PO BID sumatriptan succinate 50 mg PO ONCE PRN 30 days tizanidine 4 mg PO BEDTIME PRN 90 days Tobacco use date assessed: 06/03/24 Fall risk assessment: No Falls in past year Last assessed Fall Risk: 06/03/24 Dental Screening Dental Screen Date: 06/03/24 Did you have a dental visit in the last 12 months?: Yes Did you have a dental problem in the last 6 months where you did not have access to dental care?: No Was dental information given to patient?: Patient has dentist HPI 4 week follow up HPI Details Chief Complaint The patient presents with persistent abdominal pain and gingivitis. Need monthly pain medication refill Assessment and Plan 68-year-old female with a history of hypertension and type 2 diabetes mellitus presenting with abdominal pain and gingivitis. The abdominal pain has persisted off and on and is chronic, she has elevated LFTs and is seeing Dr. Jones for management. She recently had a dental visit and was told that she has developed infection need to have deep clinic done, however the dentist she was referred to was not covered under her insurance so she could not have that performed. The gingivitis is associated with bleeding gums. The neck pain described is likely muscular, potentially exacerbated by a pinched nerve. The patient also mentioned experiencing a transient fever of 102.4?F, 4 days ago though it has since resolved. Hypertension appears stable with current vitals. Diabetes control issues were noted with an A1c of 7.5% from prior labs. 1. Type 2 Diabetes Mellitus Monitor progress with A1c and ensure glycemic control remains stable. Schedule follow-up labs ahead of the next visit to gauge management effectiveness. 3. Gingivitis Recommend mechanical deep cleaning to manage gingivitis. Confirm coverage with insurance and visit a suitable dentist for the procedure. 4. Hypertension Continue monitoring and recording blood pressure readings. Maintain current treatment regimen. 5. Muscular Neck Pain Advise caution in neck movements that exacerbate pain. Recommend the use of a soft cervical collar and require moderation in neck activity to reduce strain. 6. 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 - Seek out a dental provider for gingivitis management and confirm insurance coverage for deep cleaning. - Monitor blood pressure routinely to track fluctuations in hypertension. - Utilize a soft cervical collar to alleviate neck pain symptoms and prevent further strain. - Maintain current diabetes management routine and dietary recommendations. 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 Mother Stomach cancer Social History Housing: House Alcohol intake: never Patient Tobacco Use Status: Never used Tobacco e-Cigarette/Vaping Use: Never Used service: No Current occupational status: disabled Cognitive needs: No Hearing needs: No Vision needs: Yes Questionnaire Thrive Questionnaire Date Thrive assessed: 06/03/24 I am a: Patient What is your living situation today?: I have a steady place to live Within the past 12 months, did the food you bought not last and you didn't have the money to get more?: I choose not to answer this question Within the past 12 months, did you worry whether your food would run out before you got money to buy more?: I choose not to answer this question Do you have trouble paying for medicines?: No Do you have trouble getting transportation to medical appointments?: No Do you have trouble paying your heating and electricity bill?: No Do you have trouble taking care of your child, family member or friend?: No Do you have trouble with day-to-day activities such as bathing, preparing meals, shopping, managing finances, etc.?: No Are you currently unemployed and looking for a job?: No Are you interested in more education?: No Please select the resources that you would like help with: None Currently or been in a relationship where the following occur: I choose not to answer THRIVE Score: 0 AUDIT C Alcohol Use Questionnaire (AUDIT-C) 1. How often do you have a drink containing alcohol?: Never 3. How often do you have six or more drinks on one occasion?: Never Total Score: 0 Score Reviewed/Action Taken: Yes SACHIN-7 AMB Questionnaire SACHIN-7 Date SACHIN - 7 assessed: 04/07/24 Source: Developed by Drs. Tommy Graham, Marnie Ford, Sebastien Vaughn and colleagues, with an educational mayito from [employer]. Review of Systems Const Denies chills and Denies fever(s) ENT Denies epistaxis and Denies nasal discharge Card Denies chest pain Resp Denies chest congestion, Denies cough and Denies hemoptysis GI Denies diarrhea Skin/Breast Denies rash Neuro Reports no additional complaints Psych Reports no additional complaints Endo Reports no additional complaints Physical exam (Primary Care) Vital Signs: Last Vital Signs Pulse 89 06/03/24 11:58 BP 144/66 H 06/03/24 11:58 Pulse Ox 96 06/03/24 11:58 Oxygen Delivery Method Room Air 06/03/24 11:58 BMI result Body Mass Index 27.4 Tobacco/Smoking Status: Tobacco use Status Tobacco use date assessed 06/03/24 06/03/24 12:01 Patient Tobacco Use Status Never used Tobacco 06/03/24 12:01 e-Cigarette/Vaping Use Never Used 06/03/24 12:01 Thrive Assessment: Date of Thrive Assessment Date Thrive assessed 06/03/24 06/03/24 12:01 Currently or been in a relationship where the following occur: I choose not to answer Const General: cooperative, comfortable and no acute distress Orientation/consciousness: patient oriented x3 HENMT Other: Slight swelling of gums noted in the mouth Head: Yes normocephalic Eyes General: appearance normal, both eyes and all related structures Neck Neck: Yes supple Resp Effort & Inspection: normal respiratory effort, no cough and no stridor Cardio Rhythm: regular rhythm Heart sounds: S1 normal heart sound present and S2 normal heart sound present Skin General skin exam: turgor normal Neuro General: patient oriented x3, tone normal and moves all extremities Extrem Right lower extremity: no edema Left lower extremity: no edema Coding Level of Care Code Est Pt Level 4 (17441) Complex EM visit Add On G2211 Diagnoses Diabetes 1.5, managed as type 1 E13.9 LFTs abnormal R94.5 Chronic GERD K21.9 Radiculitis of right cervical region M54.12 Failed back syndrome M96.1 Muscle spasm M62.838 Hypertension, essential I10 Narcotic dependence F11.20 Pain management R52 Generalized abdominal pain R10.84 Abdominal location: generalized Spinal stenosis of lumbar region with neurogenic claudication M48.062 Neurogenic claudication status: with neurogenic claudication Gingivitis K05.10 Assessment & Plan Assessment & Plan (1) Diabetes 1.5, managed as type 1: Comment: taking lantus insulin Code(s): E13.9 - Other specified diabetes mellitus without complications Category: Medical (2) LFTs abnormal: Comment: hx fatty liver Code(s): R94.5 - Abnormal results of liver function studies Category: Medical (3) Chronic GERD: Code(s): K21.9 - Gastro-esophageal reflux disease without esophagitis Category: Medical (4) Radiculitis of right cervical region: Code(s): M54.12 - Radiculopathy, cervical region Category: Medical (5) Failed back syndrome: Comment: uses fentanyl patch & oxycodone Code(s): M96.1 - Postlaminectomy syndrome, not elsewhere classified Category: Medical (6) Muscle spasm: Code(s): M62.838 - Other muscle spasm Category: Medical (7) Hypertension, essential: Code(s): I10 - Essential (primary) hypertension Category: Medical (8) Narcotic dependence: Code(s): F11.20 - Opioid dependence, uncomplicated Category: Medical (9) Pain management: Code(s): R52 - Pain, unspecified Category: Medical (10) Abdominal pain: Code(s): R10.9 - Unspecified abdominal pain Category: Medical Qualifiers: Abdominal location: generalized Qualified Code(s): R10.84 - Generalized abdominal pain (11) Spinal stenosis, lumbar: Code(s): M48.061 - Spinal stenosis, lumbar region without neurogenic claudication Category: Medical Qualifiers: Neurogenic claudication status: with neurogenic claudication Qualified Code(s): M48.062 - Spinal stenosis, lumbar region with neurogenic claudication (12) Gingivitis: Code(s): K05.10 - Chronic gingivitis, plaque induced Category: Medical Plan Chief Complaint The patient presents with persistent abdominal pain and gingivitis. Need monthly pain medication refill Assessment and Plan 68-year-old female with a history of hypertension and type 2 diabetes mellitus presenting with abdominal pain and gingivitis. The abdominal pain has persisted off and on and is chronic, she has elevated LFTs and is seeing Dr. Jones for management. She recently had a dental visit and was told that she has developed infection need to have deep clinic done, however the dentist she was referred to was not covered under her insurance so she could not have that performed. The gingivitis is associated with bleeding gums. The neck pain described is likely muscular, potentially exacerbated by a pinched nerve. The patient also mentioned experiencing a transient fever of 102.4?F, 4 days ago though it has since resolved. Hypertension appears stable with current vitals. Diabetes control issues were noted with an A1c of 7.5% from prior labs. 1. Type 2 Diabetes Mellitus Monitor progress with A1c and ensure glycemic control remains stable. Schedule follow-up labs ahead of the next visit to gauge management effectiveness. 3. Gingivitis Recommend mechanical deep cleaning to manage gingivitis. Confirm coverage with insurance and visit a suitable dentist for the procedure. 4. Hypertension Continue monitoring and recording blood pressure readings. Maintain current treatment regimen. 5. Muscular Neck Pain Advise caution in neck movements that exacerbate pain. Recommend the use of a soft cervical collar and require moderation in neck activity to reduce strain. 6. 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 - Seek out a dental provider for gingivitis management and confirm insurance coverage for deep cleaning. - Monitor blood pressure routinely to track fluctuations in hypertension. - Utilize a soft cervical collar to alleviate neck pain symptoms and prevent further strain. - Maintain current diabetes management routine and dietary recommendations. - take narcotic pain medication as prescribed and do not share it with anyone else Follow-up 4 weeks, labs to be done today Medications: Refilled oxycodone Partial Fill upon patient request. 5 mg PO DAILY PRN 30 tabs 0RF pain 30 days fentanyl 50 mcg/hr 1 patch transdermal Q48H 15 ea 0RF 30 days F11.20 - Opioid dependence, uncomplicated, M50.20 - Other cervical disc displacement, unspecified cervical region, M96.1 - Postlaminectomy syndrome, not elsewhere classified, R52 - Pain, unspecified
== END 2024-06-03 12:15 | disposition home or self-care (01) ==
PROVIDERS: PCP Internal Medicine; Visit Provider Internal Medicine
DX: E13.9 Other specified diabetes mellitus without complications (principal); F11.20 Opioid dependence, uncomplicated; R94.5 Abnormal results of liver function studies; K21.9 Gastro-esophageal reflux disease without esophagitis; M54.12 Radiculopathy, cervical region; M96.1 Postlaminectomy syndrome, not elsewhere classified; M62.838 Other muscle spasm; I10 Essential (primary) hypertension; R52 Pain, unspecified; R10.84 Generalized abdominal pain; M48.062 Spinal stenosis, lumbar region with neurogenic claudication; K05.10 Chronic gingivitis, plaque induced

== ENCOUNTER 2024-06-26 12:17 | Outpatient (AMB) | payer MEDICARE, MEDICAID, SELFPAY ==
[2024-06-26 12:19] VITALS: BP 134/68; PULSE 84; O2SAT 98; BMI 27.8
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
== END 2024-06-26 12:42 | disposition home or self-care (01) ==
PROVIDERS: PCP Internal Medicine; Visit Provider Internal Medicine
DX: M54.12 Radiculopathy, cervical region (principal); M96.1 Postlaminectomy syndrome, not elsewhere classified; M62.838 Other muscle spasm; F11.20 Opioid dependence, uncomplicated; R52 Pain, unspecified; M48.062 Spinal stenosis, lumbar region with neurogenic claudication

== ENCOUNTER → 2024-06-26 12:17 | Outpatient (BNVA) | payer MEDICARE, MEDICAID, SELFPAY | PROVIDERS: PCP Internal Medicine; Visit Provider Internal Medicine | DX: M50.20 Other cervical disc displacement, unspecified cervical region (principal); M96.1 Postlaminectomy syndrome, not elsewhere classified; F11.20 Opioid dependence, uncomplicated; M54.12 Radiculopathy, cervical region; M62.838 Other muscle spasm; M48.062 Spinal stenosis, lumbar region with neurogenic claudication | CPT/HCPCS: 99212 ==

== ENCOUNTER 2024-08-04 11:50 | Outpatient (AMB) | payer MEDICARE, MEDICAID, SELFPAY ==
[2024-08-04 11:52] VITALS: BP 132/80; PULSE 84; O2SAT 96; BMI 27.5
--- NOTE | 2024-08-04 11:52 | A.OFFPC_ITS ---
Vital Signs 08/04/24 11:52 Height 5 ft 4 in Weight 160 lb BMI 27.5 BP 132/80 Blood Pressure Location Lt brachial Pulse 84 Pulse Source Pulse Oximeter Pulse Oximetry (%) 96 Oxygen Delivery Method Room Air Intake Visit Reasons: 1 month follow up Allergies duloxetine [From Cymbalta] Allergy (Intermediate, Verified 08/04/24 11:52) Gastrointestinal Upset gabapentin Allergy (Intermediate, Verified 08/04/24 11:52) Gastrointestinal Upset milnacipran [From Savella] Allergy (Intermediate, Verified 08/04/24 11:52) Gastrointestinal Upset naloxegol [Movantik] Allergy (Intermediate, Verified 08/04/24 11:52) Gastrointestinal Upset pregabalin [From Lyrica] Allergy (Intermediate, Verified 08/04/24 11:52) Gastrointestinal Upset Medication List - Last Reconciled 08/04/24 by Tram Darby MD albuterol sulfate 90 mcg/actuation 1 - 2 puffs PO Q4-6H PRN 30 days amlodipine 10 mg PO DAILY 90 days blood sugar diagnostic ([employer] Ultra Blue Test Strip) patient to check blood sugar 3 times daily blood-glucose meter (FreeStyle Lite Meter kit) patient to check blood sugar 3 times daily blood-glucose meter (OneTouch Ultra2 Meter) Patient to check blood sugar 3 times daily bjassbfiqj-sfnedvvdmoxun-glxh 50-325-40 mg 1 tab PO Q6H PRN famotidine 40 mg PO BEDTIME fentanyl 50 mcg/hr 1 patch transdermal Q48H 30 days insulin glargine (Lantus Solostar U-100 Insulin) 30 units (0.3 mL) subcut DAILY 90 days latanoprost 0.005% 1 drp ophthalmic (eye) BEDTIME lisinopril 40 mg PO DAILY 90 days omeprazole 20 mg PO DAILY ondansetron HCl 4 mg PO ONCE PRN 30 days oxycodone 5 mg PO DAILY PRN 30 days pen needle, diabetic qd pen needle, diabetic qd pen needle, diabetic qd sucralfate (Carafate) 1 g PO BID sumatriptan succinate 50 mg PO ONCE PRN 30 days tizanidine 4 mg PO BEDTIME PRN 90 days Tobacco use date assessed: 08/04/24 Fall risk assessment: No Falls in past year Last assessed Fall Risk: 08/04/24 Dental Screening Dental Screen Date: 08/04/24 Did you have a dental visit in the last 12 months?: Yes Did you have a dental problem in the last 6 months where you did not have access to dental care?: No Was dental information given to patient?: Patient has dentist HPI 1 month follow up HPI Details - The patient is a 68-year-old female pr esenting with chronic low back pain and associated neurogenic claudication. - Reports lower back pain exacerbated by driving, leading to right leg cramps. - Previously diagnosed with moderate helene tral canal stenosis at L3-L4. Along with other findings on MRI done 2020 - A history of hypercholesterolemia is n oted, with symptoms of circulation problems like cold feet. - Abdominal pain has remained stable. - Blood pressure control has improved, w ith readings in the normal range. Problem List - Essential Hypertension - Chronic Low Back Pain with Neurogenic Claudication - Central Canal Stenosis at L3-L4 - Hypercholesterolemia - Abdominal Pain Patient Instructions - patient will need MRI down the road if symptoms continued to get worse, she would like to hold onto MRI at this time - Continue current medications as prescr ibed, she is on fentanyl patch 50 mg, excluding oxycodone. As patient have enough - Plan for a follow-up visit scheduled or September 30. - Contact via phone or portal for any is sues or changes in condition. Review of Systems - Cardiovascular: Reports occasional col d sensation in the feet. - Neurological: Reports right leg cramps associated with driving. - Musculoskeletal: Reports lower back pa in. - Gastrointestinal: Reports abdominal pa in, stable. 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 x3 motor sensory intact Skin: Normal turgor, sometimes feels cold in feet [facility] Medical History Asthma Hx of irritable bowel syndrome Pain management Narcotic dependence Herniated nucleus pulposus, cervical Hypertension, essential Muscle spasm 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 Mother Stomach cancer Social History Housing: House Alcohol intake: never Patient Tobacco Use Status: Never used Tobacco e-Cigarette/Vaping Use: Never Used service: No Current occupational status: disabled Cognitive needs: No Hearing needs: No Vision needs: Yes Questionnaire PHQ-9 Over the last 2 weeks, how often have you been bothered by any of the following problems? 1. Little interest or pleasure in doing things: not at all 2. Feeling down, depressed, or hopeless: not at all 3. Trouble falling or staying asleep, or sleeping too much: not at all 4. Feeling tired or having little energy: not at all 5. Poor appetite or overeating: not at all 6. Feeling bad about yourself - or that you are a failure or have let yourself or your family down: not at all 7. Trouble concentrating on things, such as reading the newspaper or watching television: not at all 8. Moving or speaking so slowly that other people could have noticed. Or the opposite - being so fidgety or restless that you have been moving around a lot more than usual: not at all 9. Thoughts that you would be better off or of hurting yourself in some way: not at all Total score: 0 Depression Screening Interpretation: Negative Depression Screening Done: Yes 94689 - PHQ-9 Billing: Yes Source: Developed by Drs. Tommy Graham, Marnie Ford, Sebastien Vaughn and colleagues, with an educational mayito from [employer]. Thrive Questionnaire Date Thrive assessed: 08/04/24 I am a: Patient What is your living situation today?: I have a steady place to live Within the past 12 months, did the food you bought not last and you didn't have the money to get more?: Never true Within the past 12 months, did you worry whether your food would run out before you got money to buy more?: Never true Do you have trouble paying for medicines?: No Do you have trouble getting transportation to medical appointments?: No Do you have trouble paying your heating and electricity bill?: No Do you have trouble taking care of your child, family member or friend?: No Do you have trouble with day-to-day activities such as bathing, preparing meals, shopping, managing finances, etc.?: No Are you currently unemployed and looking for a job?: No Are you interested in more education?: No Please select the resources that you would like help with: None Currently or been in a relationship where the following occur: No concerns reported THRIVE Score: 0 AUDIT C Alcohol Use Questionnaire (AUDIT-C) 1. How often do you have a drink containing alcohol?: Never 3. How often do you have six or more drinks on one occasion?: Never Total Score: 0 Score Reviewed/Action Taken: Yes SACHIN-7 AMB Questionnaire SACHIN-7 Date SACHIN - 7 assessed: 08/04/24 Feeling nervous, anxious, or on edge: 0 = Not at all Not being able to stop or control worryin = Not at all Worrying too much about different things: 0 = Not at all Trouble relaxin = Not at all Being so restless that it is hard to sit still: 0 = Not at all Becoming easily annoyed or irritable: 0 = Not at all Feeling afraid as if something awful might happen: 0 = Not at all Total SACHIN-7 score (0-4 normal; 5-9 mild; 10-14 moderate; 15-21 severe): 0 Source: Developed by Drs. Tommy Graham, Marnie Ford, Sebastien Vaughn and colleagues, with an educational mayito from [employer]. SACHIN-7 Assessment Billing SACHIN-7 Assessment Tool: SACHIN-7 Assessment 35451 Physical exam (Primary Care) Vital Signs: Last Vital Signs Pulse 84 08/04/24 11:52 BP 132/80 08/04/24 11:52 Pulse Ox 96 08/04/24 11:52 Oxygen Delivery Method Room Air 08/04/24 11:52 BMI result Body Mass Index 27.5 Tobacco/Smoking Status: Tobacco use Status Tobacco use date assessed 08/04/24 08/04/24 11:53 Patient Tobacco Use Status Never used Tobacco 08/04/24 11:53 e-Cigarette/Vaping Use Never Used 08/04/24 11:53 PHQ-9: PHQ-9 Score PHQ-9: Total score 0 08/04/24 12:02 Depression Screening Interpretation: Negative Thrive Assessment: Date of Thrive Assessment Date Thrive assessed 08/04/24 08/04/24 11:53 Currently or been in a relationship where the following occur: No concerns reported Coding Level of Care Code Est Pt Level 3 (01968) Complex EM visit Add On G2211 Diagnoses Radiculitis of right cervical region M54.12 Failed back syndrome M96.1 Muscle spasm M62.838 Narcotic dependence F11.20 Pain management R52 Spinal stenosis of lumbar region with neurogenic claudication M48.062 Neurogenic claudication status: with neurogenic claudication 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 Z79.4 HNP (herniated nucleus pulposus), lumbar M51.26 Radiculitis, lumbosacral M54.17 Essential hypertension I10 Generalized abdominal pain R10.84 Abdominal location: generalized LFTs abnormal R94.5 Additional Codes SACHIN-7 Assessment Billing - SACHIN-7 Assessment Tool: SACHIN-7 Assessment [id number] ( [id number]) PHQ-9 - 35447 - PHQ-9 Billing: Yes ([id number]) Assessment & Plan Assessment & Plan (1) Radiculitis of right cervical region: Code(s): M54.12 - Radiculopathy, cervical region Category: Medical (2) Failed back syndrome: Comment: uses fentanyl patch & oxycodone Code(s): M96.1 - Postlaminectomy syndrome, not elsewhere classified Category: Medical (3) Muscle spasm: Code(s): M62.838 - Other muscle spasm Category: Medical (4) Narcotic dependence: Code(s): F11.20 - Opioid dependence, uncomplicated Category: Medical (5) Pain management: Code(s): R52 - Pain, unspecified Category: Medical (6) Spinal stenosis, lumbar: Code(s): M48.061 - Spinal stenosis, lumbar region without neurogenic claudication Category: Medical Qualifiers: Neurogenic claudication status: with neurogenic claudication Qualified Code(s): M48.062 - Spinal stenosis, lumbar region with neurogenic claudication (7) 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: Code(s): Z79.4 - 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 Category: Medical (8) HNP (herniated nucleus pulposus), lumbar: Code(s): M51.26 - Other intervertebral disc displacement, lumbar region Category: Medical (9) Radiculitis, lumbosacral: Code(s): M54.17 - Radiculopathy, lumbosacral region Category: Medical (10) Essential hypertension: Code(s): I10 - Essential (primary) hypertension Category: Medical (11) Abdominal pain: Code(s): R10.9 - Unspecified abdominal pain Category: Medical Qualifiers: Abdominal location: generalized Qualified Code(s): R10.84 - Generalized abdominal pain (12) LFTs abnormal: Comment: hx fatty liver Code(s): R94.5 - Abnormal results of liver function studies Category: Medical Plan - The patient is a 68-year-old female presenting with chronic low back pain and associated neurogenic claudication. - Reports lower back pain exacerbated by driving, leading to right leg cramps. - Previously diagnosed with moderate central canal stenosis at L3-L4. Along with other findings on MRI done 2020 - A history of hypercholesterolemia is noted, with symptoms of circulation problems like cold feet. - Abdominal pain has remained stable. - Blood pressure control has improved, with readings in the normal range. Problem List - Essential Hypertension - Chronic Low Back Pain with Neurogenic Claudication - Central Canal Stenosis at L3-L4 - Hypercholesterolemia - Abdominal Pain Patient Instructions - patient will need MRI down the road if symptoms continued to get worse, she would like to hold onto MRI at this time - Continue current medications as prescribed, she is on fentanyl patch 50 mg, excluding oxycodone. As patient have enough - Plan for a follow-up visit scheduled for September 30. - Contact via phone or portal for any issues or changes in condition. Medications: Refilled fentanyl 50 mcg/hr 1 patch transdermal Q48H 30 days 15 ea 0RF F11.20 - Opioid dependence, uncomplicated, M50.20 - Other cervical disc displacement, unspecified cervical region, M96.1 - Postlaminectomy syndrome, not elsewhere classified, R52 - Pain, unspecified
--- OUTSIDE RECORDS SUMMARY | 2024-08-04 12:59 | XMS_ITS ---
Author Organization [facility] Address [address] [place] [address] Care Team Providers Care Firer Retort Name Role Phone Wilner GONSALES, [facility] Primary Care Provider Tommy Almonte [phone] REASON FOR VISIT results ultrasound and labs Encounters Encounter Location Date Provider Diagnosis [facility] [address] [place] [address] 09/06/2023 Tommy Roberts PLAN OF TREATMENT Next Appt Details Provider Name:Tommy Roberts , 11/13/2024 01:00:00 PM, [address], [address], [place], [address],
--- OUTSIDE RECORDS SUMMARY | 2024-08-04 13:00 | XMS_ITS ---
Author Organization [facility] Address [address] [place] [address] Care Team Providers Care Pneumatic Jacketer Name Role Phone Wilner GONSALES, [facility] Primary Care Provider Tommy Almonte [phone] REASON FOR VISIT Needs MRI/MRCP PROBLEMS Problem Type ICD Code Onset Dates Problem Status W/U Status Risk SNOMED Code Notes Problem Elevated alkaline phosphatase level (R74.8) Active confirmed Alkaline phosphatase raised (245379862) Problem Abnormal ultrasound of biliary tract (R93.2) Active confirmed Abnormal findings diagnostic imaging of liver and biliary tract (569030065) Problem Elevated alpha fetoprotein (R77.2) Active confirmed Serum alpha-fetoprote in level elevated (125809084) Encounters Encounter Location Date Provider Diagnosis [facility] [address] [place] [address] 09/06/2023 Tommy Roberts Elevated alkaline phosphatase level R74.8 ; Abnormal ultrasound of biliary tract R93.2 and Elevated alpha fetoprotein R77.2 ASSESSMENTS Encounter Date Diagnosis Assessment Notes Treatment Notes Treatment Clinical Notes 09/06/2023 Elevated alkaline phosphatase level (ICD-10 - R74.8) 09/06/2023 Abnormal ultrasound of biliary tract (ICD-10 - R93.2) 09/06/2023 Elevated alpha fetoprotein (ICD-10 - R77.2) PLAN OF TREATMENT Pending Test Test Name Order Date BUN 09/06/2023 MRI ABD W&WO CONTRAST 09/06/2023 Creatinine 09/06/2023 Next Appt Details Provider Name:Tommy Roberts , 11/13/2024 01:00:00 PM, [address] [place] [address], [address], [place], [address],
--- OUTSIDE RECORDS SUMMARY | 2024-08-04 13:00 | XMS_ITS ---
Author Organization [facility] Address [address] [place] [address] Care Team Providers Care Supervisor Beet End Name Role Phone Wilner GONSALES, [facility] Primary Care Provider Tommy Almonte [phone] ALLERGIES Allergen (clinical drug ingredient) Drug/Non Drug Allergy documented on EMR Reaction Allergy Type Onset Date Status naloxegol Movantik Unknown Drug Allergy Active REASON FOR VISIT Patient presents today for elevated liver enzymes MEDICATIONS Medication SIG (Take, Route, Frequency, Duration) Notes Start Date End Date Status amLODIPine Besylate 10 MG 1 tablet Orally Once a day Active fentaNYL 50 MCG/HR (Schedule II Drug) A PPLY 1 PATCH TO THE SKIN AND CHANGE EVERY OTHER DAY Transdermal for 30 Active Famotidine 20 MG TAKE 1 TABLET BY DAVI TH EVERYDAY AT BEDTIME Orally Twice a day Active Lisinopril 40 MG TAKE 1 TABLET BY DAVI TH EVERY DAY Orally Once a day Active Lantus 100 UNIT/ML 30 Subcutaneous QHS Active Dicyclomine HCl 10 MG TAKE 1-2 CAPS EVER Y 6 HOURS NEEDED ABDOMINAL CRAMPS/BLOATING/DISCOMFO RT for 90 Active Omeprazole 20 MG TAKE 1 CAPSULE BY MO UTH EVERY DAY for 90 Not-Taking MiraLax 17 GM/SCOOP 1 capful from a 238g m bottle to the measured line in 8 ounces of water Orally Twice a day for 30 days 08/16/2022 Active Metamucil 0.52 GM 2 capsules with 8 ou nces of liquid Orally Once or twice a day for constipation for 30 days 08/16/2022 Active Latanoprost Active tiZANidine HCl Activ e BD Pen Needle Mini U/F Active Ibuprofen PRN Active IMMUNIZATIONS Vaccine Route Administration Date Status Comme nts Influenza Unknown 11/15/2023 Refused SOCIAL HISTORY Tobacco Use: Social History Observation Description Date Details (start date - stop date) Never Smoker NA - NA Sex Assigned At : Social History Observation Description Sex Assigned At Unknown Tobacco Use/Smoking Question Answer Notes Patient is a nonsmoker Alcohol Screen Question Answer Notes Did you have a drink containing alcohol in the p ast year? No Points 0 Interpretation Negative PROBLEMS Problem Type ICD Code Onset Dates Problem Status W/U Status Risk SNOMED Code Notes Problem Elevated liver function tests (R79.89) Active confirmed Elevated liver enzymes level (541920205) VITAL SIGNS BMI 28.21 kg/m2 11/15/2023 Blood pressure systolic 000 mm Hg 11/15/19 24 Blood pressure diastolic 00 mm Hg 024 Height 63 in 11/15/2023 Temperature 98.2 degrees Fahrenheit 11/15/19 24 Weight 159 lb 4 oz lbs 11/15/2023 Encounters Encounter Location Date Provider Diagnosis [facility] [address] [place] [phone] 11/15/2023 Tommy Roberts Elevated alkaline phosphatase level R74.8 ; Elevated liver function tests R79.89 ; Irritable bowel syndrome, unspecified type K58.9 ; Gastroesophageal reflux disease, esophagitis presence not specified K21.9 and Fatty liver K76.0 ASSESSMENTS Encounter Date Diagnosis Assessment Notes Treatment Notes Treatment Clinical Notes 11/15/2023 Elevated alkaline phosphatase level (ICD-10 - R74.8) 11/15/2023 Elevated liver funct ion tests (ICD-10 - R79.89) 11/15/2023 Irritable bowel syndrome, unspecified type (ICD-10 - K58.9) 11/15/2023 Gastroesophageal ref lux disease, esophagitis presence not specified (ICD-10 - K21.9) 11/15/2023 Fatty liver (ICD-10 - K76.0) PLAN OF TREATMENT Pending Test Test Name Order Date LIVER PROFILE 11/15/2023 Mitochondrial Antibody 11/15/2023 Liver Kidney Microsomal Ab 11/15/2023 Next Appt Details Follow Up: 1 Year, Reason: Provider Name:Tommy Roberts , 11/13/2024 01:00:00 PM, [address], [address], [place], [address], Progress Notes * Examination Category Sub-Category Detail Notes General Examination GENERAL APPEARANCE: pleasant , well nourished, well developed, in no acute distress HEAD: EYES: sclera non-icteric EARS: NOSE: THROAT: NECK/THYROID: no cervical lymphade nopathy, neck supple HEART: S1, S2 normal CHEST: LUNGS: clear to auscultatio n bilaterally ABDOMEN: normal bowel sounds, no guarding or rigidity, no guarding or rigidity, no masses palpable, soft, nontender, nondistended NEUROLOGIC: alert and oriented SKIN: nonjaundiced, no spi sahil angiomata EXTREMITIES: no edema PERIPHERAL PULSES: BACK: BREASTS: MUSCULOSKELETAL: MALE GENITOURINARY: LYMPH NODES: RECTAL EXAM: FEMALE GENITOURINARY: ORAL CAVITY: mucosa moist
== END 2024-08-04 12:12 | disposition home or self-care (01) ==
PROVIDERS: PCP Internal Medicine; Visit Provider Internal Medicine
DX: M54.12 Radiculopathy, cervical region (principal); M96.1 Postlaminectomy syndrome, not elsewhere classified; M62.838 Other muscle spasm; F11.20 Opioid dependence, uncomplicated; R52 Pain, unspecified; M48.062 Spinal stenosis, lumbar region with neurogenic claudication; Z79.4 Long term (current) use of insulin; M51.26 Other intervertebral disc displacement, lumbar region; M54.17 Radiculopathy, lumbosacral region; I10 Essential (primary) hypertension; R10.84 Generalized abdominal pain; R94.5 Abnormal results of liver function studies

== ENCOUNTER → 2024-08-04 11:50 | Outpatient (BNVA) | payer MEDICARE, MEDICAID, SELFPAY | PROVIDERS: PCP Internal Medicine; Visit Provider Internal Medicine | DX: M54.12 Radiculopathy, cervical region (principal); M96.1 Postlaminectomy syndrome, not elsewhere classified; M62.838 Other muscle spasm; F11.20 Opioid dependence, uncomplicated; M48.062 Spinal stenosis, lumbar region with neurogenic claudication; M51.26 Other intervertebral disc displacement, lumbar region; M54.17 Radiculopathy, lumbosacral region; I10 Essential (primary) hypertension; E11.9 Type 2 diabetes mellitus without complications; R94.5 Abnormal results of liver function studies; Z79.4 Long term (current) use of insulin | CPT/HCPCS: 96127; 99212 ==

== ENCOUNTER 2024-08-11 12:47 | Outpatient (AMB) | payer MEDICARE, MEDICAID, SELFPAY ==
--- NOTE | 2024-08-11 12:53 | A.OFFVIS_ITS ---
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/disorder of lipoprotein metabolism Allergies duloxetine [From Cymbalta] Allergy (Intermediate, Verified 08/04/24 11:52) Gastrointestinal Upset gabapentin Allergy (Intermediate, Verified 08/04/24 11:52) Gastrointestinal Upset milnacipran [From Savella] Allergy (Intermediate, Verified 08/04/24 11:52) Gastrointestinal Upset naloxegol [Movantik] Allergy (Intermediate, Verified 08/04/24 11:52) Gastrointestinal Upset pregabalin [From Lyrica] Allergy (Intermediate, Verified 08/04/24 11:52) Gastrointestinal Upset Medication List - Last Reconciled 08/11/24 by Ron Morgan MD albuterol sulfate 90 mcg/actuation 1 - 2 puffs PO Q4-6H PRN 30 days amlodipine 10 mg PO DAILY 90 days blood sugar diagnostic (Capillary TechnologiesTouch Ultra Blue Test Strip) patient to check blood sugar 3 times daily blood-glucose meter (FreeStyle Lite Meter kit) patient to check blood sugar 3 times daily blood-glucose meter (OneTouch Ultra2 Meter) Patient to check blood sugar 3 times daily famotidine 40 mg PO BEDTIME fentanyl 50 mcg/hr 1 patch transdermal Q48H 30 days insulin glargine (Lantus Solostar U-100 Insulin) 30 units (0.3 mL) subcut DAILY 90 days latanoprost 0.005% 1 drp ophthalmic (eye) BEDTIME lisinopril 40 mg PO DAILY 90 days omeprazole 20 mg PO DAILY ondansetron HCl 4 mg PO ONCE PRN 30 days oxycodone 5 mg PO DAILY PRN 30 days pen needle, diabetic qd pen needle, diabetic qd pen needle, diabetic qd sucralfate (Carafate) 1 g PO BID tizanidine 4 mg PO BEDTIME PRN 90 days HPI Comments Details: Syeda is here for consultation regarding some palpitations/chest discomfort. Has a history of diabetes, hypertension, dyslipidemia. She states that she can get sensations of heart racing at different times. During those moments, she also gets some chest discomfort. Not clear if it is something anginal or nonspecific. No previously documented coronary disease or myocardial infarction or cardiomyopathy. She has elevated lipids but she also has abnormal LFTs and hence not listed to be on any statins. [facility] Medical History Asthma Hx of irritable bowel syndrome Pain management Narcotic dependence Herniated nucleus pulposus, cervical Hypertension, essential Muscle spasm 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 Mother Stomach cancer Social History Housing: House Alcohol intake: never Patient Tobacco Use Status: Never used Tobacco e-Cigarette/Vaping Use: Never Used service: No Current occupational status: disabled Cognitive needs: No Hearing needs: No Vision needs: Yes Review of Systems Const Denies weakness ENT Denies dizziness Card Reports chest pain, Denies chest pain with activity, Denies syncope, Denies rapid heart rate, Denies pedal edema, Denies edema, Denies leg edema, Denies lightheadedness, Reports palpitations, Reports dyspnea, Denies dyspnea on exertion and Denies orthopnea Resp Denies cough, Reports dyspnea and Denies dyspnea on exertion GI Denies hematochezia and Denies change in stool character Musc Denies abnormal gait, Denies muscle cramps, Denies muscle weakness, Denies numbness, Denies radiating pain into limb and Denies tingling Neuro Denies abnormal gait, Denies dizziness, Denies syncope, Denies numbness, Denies tingling and Denies weakness Endo Reports palpitations Physical Exam Vital Signs: Last Vital Signs Pulse 97 08/11/24 12:54 BP 130/62 08/11/24 12:54 BMI result Body Mass Index 27.2 Const General: comfortable and no acute distress Orientation/consciousness: patient oriented x3 HEENT Other: Unremarkable Head: Yes normal to inspection Neck Neck: Yes normal visual inspection Chest Chest palpation & inspection: normal inspection of the chest Resp Auscultation: clear to auscultation bilaterally Cardio Palpation: normal PMI Heart sounds: S1 normal heart sound present, S2 normal heart sound present, no gallops, no murmurs and no rubs GI Palpation (GI): Soft to palpation Back/Spine/Pelvis Other: unremarkable Skin General skin exam: no rashes or lesions noted Neuro General: patient oriented x3 Extrem General: Yes normal to inspection Psych Mental Status: mental status grossly normal Office Procedures EKG Details: EKG with underlying sinus rhythm at 97/Min; no significant ST-T changes; [place]. [address][id number], Complete Assessment & Plan Assessment & Plan (1) Chest discomfort: Code(s): R07.89 - Other chest pain Category: Medical (2) Palpitations: Code(s): R00.2 - Palpitations Category: Medical (3) Diabetes 1.5, managed as type 1: Comment: taking lantus insulin Code(s): E13.9 - Other specified diabetes mellitus without complications Category: Medical (4) Essential hypertension: Code(s): I10 - Essential (primary) hypertension Category: Medical (5) Other and unspecified hyperlipidemia: Code(s): E78.5 - Hyperlipidemia, unspecified Category: Medical Plan Chest discomfort, palpitations with multiple cardiovascular risk factors. Obtain echocardiogram, coronary CTA and Holter. With regard to the LFTs, we will assess for any CAD. If present, we will probably need Repatha or Praluent. To be followed up and decided. Orders: Orders Basic Metabolic Panel Today R07.89 - Other chest pain CA echo transthoracic complete Today R07.89 - Other chest pain CT Cardiac Coronary Angio Today I25.10 - Atherosclerotic heart disease of algaaciq coronary artery without angina pectoris, R07.89 - Other chest pain ECG 3 day holter monitor Today R00.2 - Palpitations Coding Level of Care Code New Pt Level 4 (80386) Diagnoses Chest discomfort R07.89 Palpitations R00.2 Diabetes 1.5, managed as type 1 E13.9 Essential hypertension I10 Other and unspecified hyperlipidemia E78.5 CPT Codes EKG - CPT: 05888-[id number], Complete ([id number])
[2024-08-11 12:54] VITALS: BP 130/62; PULSE 97; BMI 27.2
== END 2024-08-11 13:25 | disposition home or self-care (01) ==
PROVIDERS: PCP Internal Medicine; Visit Provider Internal Medicine
DX: R07.89 Other chest pain (principal); R00.2 Palpitations; E13.9 Other specified diabetes mellitus without complications; I10 Essential (primary) hypertension; E78.5 Hyperlipidemia, unspecified
CPT/HCPCS: 93010; 99204

== ENCOUNTER → 2024-08-11 12:47 | Outpatient (BNVA) | payer MEDICARE, MEDICAID, SELFPAY | PROVIDERS: PCP Internal Medicine; Visit Provider Internal Medicine | DX: R07.89 Other chest pain (principal); R00.2 Palpitations; E13.9 Other specified diabetes mellitus without complications; E78.5 Hyperlipidemia, unspecified; I10 Essential (primary) hypertension | CPT/HCPCS: 93005; 99202 ==

== ENCOUNTER → 2024-08-19 12:51 | Outpatient (REF) | payer MEDICARE, SELFPAY ==
--- NOTE | 2024-08-19 12:55 | CA_ITS ---
Transthoracic Echocardiogram Patient (Last, First, Middle): Syeda Duffy, Gender: Female Date of : 1955 Age: 68 Procedure Date: 08/19/2024 Procedure Type: Transthoracic Echocardiogram Location: OP Height: 160. cm Weight: 71.67 kg BSA: 1.75 m2 Heart Rate: 82 bpm BP: 160 / 85 mmHg Sieve Grader Tender: KAPIL Sharma MD: Ron Morgan MD Poiser Balance: Wily Rick MD Symptoms: R07.89 - Other chest pain Study Quality: Adequate ECG Rhythm: Sinus Conclusions: - 1. Normal LV ejection fraction of 55-60% with grade 1 diastolic dysfunction 2. Normal cardiac valvular Dopplers 3. No gross pericardial effusion Findings Left Ventricle Normal left ventricular size, thickness, and systolic function. The visually estimated ejection fraction is between 55-60%. Spectral Doppler is indicative of an impaired relaxation filling pattern. E/E prime ratio is <8, consistent with normal filling pressures. Evidence suggests grade I (mild) diastolic dysfunction. Right Ventricle Normal right ventricular cavity size and systolic function. Atria Both atria are normal in size. There is lipomatous hypertrophy of the interatrial septum. There is no evidence of interatrial shunt. Aortic Valve Normal aortic valve structure and function. There is no aortic valve stenosis. There is no aortic valve regurgitation. Mitral Valve Normal mitral valve structure and function. There is trace mitral valve regurgitation. There is no mitral valve stenosis. Pulmonic Valve The pulmonic valve was not well visualized. Tricuspid Valve Likely normal tricuspid valve structure and function. Tricuspid regurgitation envelope is inadequate for calculation of right ventricular systolic pressure. Normal right atrial pressure. Great Vessels All visible segments of the aorta are normal in size. The pulmonary artery was not well visualized. There is no dilatation of the ascending aorta measuring 2.90 cm. Venous The inferior vena cava is normal in size and collapses greater than 50% with inspiration. Pericardium/Pleural There is no evidence of pericardial effusion. Prior Study Comparison no previous study in the last 5 years for comparison Measurements 2D Linear Measurements IVSd: 1.03 0.6-0.9/0.6-1.0 cm LVIDd: 4.09 3.9-5.3/4.2-5.9 cm LVIDd Index: 2.34 2.4-3.2/2.2-3.1 cm/m2 LVIDs: 1.95 2.0-3.6 cm LVPWd: 0.84 0.7-1.1 cm LA Diam: 3.10 2.7-3.8/3.0-4.0 cm LAIDs Index: 1.77 1.5-2.3 cm/m2 LV Mass: 148.58 67-162/88-224 g LV Mass Index: 84.90 43-95/49-115 g/m2 LVOT Diam: 2.00 3.0+(-)1.3 cm 2D Systolic Function EF 4C: 63.00 >55% EF 2C: 55.50 >55% EF BiP: 59.30 >55% Mitral Valve MV Pk E: 0.60 MV PK A: 0.84 MV Decel Time: 160.00 E/A: 0.70 E'Lateral: 8.27 E'Medial: 5.44 E/E' Med: 11.00 E/E' Lat: 7.30 PHT: 47.00 MVA PHT: 4.68 Decel [place]: 3.76 Aortic Valve AoV Pk Ian: 1.41 AoV Mn Ian: 0.93 AoV VTI: 0.27 AoV Pk Grad: 8.00 Aov Mn Grad: 4.00 DEENA Cont.VTI: 2.17 LVOT LVOT Pk Ian: 0.91 LVOT Mn Ian: 0.66 LVOT VTI: 0.19 LVOT Pk Grad: 3.00 LVOT Mn Grad: 2.00 LVOT Diam: 2.00 LVOT Area: 3.14 Diastolic Function MV Pk E: 0.60 MV Pk A: 0.84 E/A: 0.70 E'Medial: 5.44 E/E' Med: 11.00 E' Laterial: 8.27 E/E' Lat: 7.30 Right Ventricle TAPSE (mm): 21.30 TVS' Ian: 10.20 Tricuspid Valve RA Press: 3.00 Great Vessels Aorta Sinus of Valsalva: 3.30 2.0-3.5 cm Ao Asc: 2.90 2.1-3.4 cm Pulmonary Valve PV Pk Ian: 1.07 Peak PV Grad: 5.00 Updated in Other Vendor System with Status of Final Wily Rick MD electronically signed on 08/20/2024 2:44:13 PM with status of Final
--- OUTSIDE RECORDS SUMMARY | 2024-08-19 14:12 | XMS_ITS ---
Author Organization [facility] Address [address] [place] [address] Care Team Providers Care Manager Domestic Name Role Phone Wilner GONSALES, [facility] Primary Care Provider Tommy Almonte [phone] REASON FOR VISIT results ultrasound and labs Encounters Encounter Location Date Provider Diagnosis [facility] [address] [place] [address] 09/06/2023 Tommy Roberts PLAN OF TREATMENT Next Appt Details Provider Name:Tommy Roberts , 11/13/2024 01:00:00 PM, [address], [address], [place], [address],
--- OUTSIDE RECORDS SUMMARY | 2024-08-19 14:12 | XMS_ITS ---
Author Organization [facility] Address [address] [place] [address] Care Team Providers Care Tour Escort Name Role Phone Wilner GONSALES, [facility] Primary Care Provider Tommy Almonte [phone] ALLERGIES Allergen (clinical drug ingredient) Drug/Non Drug [...] (R79.89) Active confirmed Elevated liver enzymes level ([id number]) VITAL SIGNS BMI 28.21 kg/m2 11/15/2023 Blood pressure systolic 000 mm Hg 11/15/19 24 Blood pressure diastolic 00 mm Hg 024 Height 63 in 11/15/2023 Temperature 98.2 degrees Fahrenheit 11/15/19 24 Weight 159 lb 4 oz lbs 11/15/2023 Encounters Encounter Location Date Provider Diagnosis [facility] [address] [place] [phone] 11/15/2023 Tommy Roberts Elevated alkaline phosphatase level [...] 01:00:00 PM, [address], [address], [place], [address], Progress Notes * Examination Category Sub-Category Detail [...]
--- OUTSIDE RECORDS SUMMARY | 2024-08-19 14:13 | XMS_ITS | Patient Health Record ---
Author Organization [facility] Address [address] [place] [address] Care Team Providers Care Aoc Director Combat Plans Officer Name Role Phone Wilner GONSALES, Asma Primary Care Provider Tommy Almonte [phone] ALLERGIES Allergen (clinical drug ingredient) Drug/Non Drug Allergy documented on EMR Reaction Allergy Type Onset Date Status naloxegol Movantik Unknown Drug Allergy Active RESULTS Component Value Reference Range Notes Liver Panel Reviewed date:09/06/2023 06:04:27 PM Interpretation: Performing Lab:[facility], [address] [place] [phone] Notes/Report: Bilirubin Total 0.4 0.0-1.0 mg/dL Bilirubin Direct 0.2 0.0-0.5 mg/dL Aspartate Amino Transferase 34 5-31 U/L Alanine Aminotransferase 64 0-31 U/L Total Protein 8.2 6.5-8.0 g/dL Albumin Level 4.1 3.5-5.0 g/dL Alkaline Phosphatase 419 39-117 U/L Gamma Glutamyl Transpeptidas e Reviewed date:08/28/2023 11:38:03 AM Interpretation: Performing Lab:[facility], [address] [place] [phone] Notes/Report: Gamma Glutamyl Transpeptidase 1650 7-33 U/L Alpha Fetoprotein Reviewed date:09/02/2023 08:18:08 PM Interpretation: Performing Lab:[facility], [address] [place] [phone] Notes/Report: Alpha Fetoprotein 6.7 Reference Range: <6.1 The use of AFP as a tumor marker in females is not recommended. This test was performed using the Huy Chelsi chemiluminescent method. Values obtained from different assay methods cannot be used interchangeably. AFP levels, regardless of value, should not be interpreted as absolute evidence of the presence or absence of disease. THIS TEST WAS PERFORMED AT: [facility] [address] [place] [phone] GRACE WHITMORE MD Liver Fibrosis Pnl Reviewed date:09/02/2023 08:18:16 PM Interpretation: Performing Lab:[facility], [address] [place] [phone] Notes/Report: Liver Fibrosis Score 0.30 Liver Fibrosis Stage F1 Liver Fibrosis Interpretation SEE NOTE minimal fibrosis Fibro Test Score (f) Metavir Score f>=0 and f<=0.21 : F0 (no fibrosis) f>0.21 and f<=0.27 : F0-F1 (no fibrosis) f>0.27 and f<=0.31 : F1 (minimal fibrosis) f>0.31 and f<=0.48 : F1-F2 (minimal fibrosis) f>0.48 and f<=0.58 : F2 (moderate fibrosis) f>0.58 and f<=0.72 : F3 (advanced fibrosis) f>0.72 and f<=0.74 : F3-F4 (advanced fibrosis) f>0.74 and f<=1.00 : F4 (severe fibrosis) Nec Inflam Act Score 0.35 Nec Inflam Act Grade A1 Nec Inflam Act Interpretation SEE NOTE minimal activity ActiTest Score (a) Metavir Score a>=0 and a<=0.17 : A0 (no activity) a>0.17 and a<=0.29 : A0-A1 (no activity) a>0.29 and a<=0.36 : A1 (minimal activity) a>0.36 and a<=0.52 : A1-A2 (minimal activity) a>0.52 and a<=0.60 : A2 (significant activity) a>0.60 and a<=0.62 : A2-A3 (significant activity) a>0.62 and a<=1.00 : A3 (severe activity) YQF-Qdpsi-3-Macroglobulin 165 106-279 mg/dL FIB-Haptoglobin 185 43-212 mg/dL FIB-Apolipoprotein A1 209 101-198 mg/dL FIB-Total Bilirubin 0.4 0.2-1.2 mg/dL FIB-GGT 1295 3-65 U/L FIB-ALT 59 6-29 U/L Reference ID [id number] Footnote SEE NOTE The reliability of results is dependent on compliance with the preanalytical and analytical conditions recommended by [employer]. The tests have to be deferred for: acute hemolysis, acute hepatitis, acute inflammation, extra hepatic cholestasis. The advice of a specialist should be sought for interpretation in chronic hemolysis and Gilbert's syndrome. The test interpretation is not validated in liver transplant patients. Isolated extreme values of one of the components should lead to caution in interpreting the results. In case of discordance between a biopsy result and a test, it is recommended to seek the advice of a specialist. The causes of these discordances could be due to a flaw of the test or to a flaw in the biopsy: i.e. a liver biopsy has a 33% variability rate for one fibrosis stage. FibroTest is interpretable for chronic hepatitis B and C, alcoholic and non alcoholic steatosis. ActiTest is interpretable for chronic hepatitis B and C. The performance characteristics have been determined by [facility]. It has not been cleared or approved by the U.S. Food and Drug Administration. Performance characteristics refer to the analytical performance of the test. [employer], [employer], the associated logo, [employer] and all associated [employer] dong are the registered trademarks of [employer]. All third republican dong - (R) and (TM) - are the property of their respective owners. (C) 1596-9412 [employer]. All rights reserved. THIS TEST WAS PERFORMED AT: [facility] [address] [place] [address] CRISTINA GIORDANO MD,PHD,PITA US abdomen comp w elastograp hy Reviewed date:09/14/2023 08:39:05 PM Interpretation: Performing Lab: Notes/Report: [address] [address] Ultrasound Report Signed Patient: Alethea Doll MR#: [id number] : 1955 Acct:[id number] Age/Sex: 67 / F ADM Date: 08/28/23 Loc: HO.US Attending Dr: Tommy Roberts MD Ordering Physician: Tommy Roberts Date of Service: 08/28/23 Procedure(s): US abdomen comp w elastography Accession Number(s): [id number] cc: Tram Darby MD; Tommy Roberts EXAMINATION: US COMPLETE ABDOMEN WITH LIVER ELASTOGRAPHY CLINICAL INFORMATION: Fatty liver and elevated liver function tests. COMPARISON: None available. TECHNIQUE: Real-time imaging of the abdominal viscera. Noninvasive ultrasound liver fibrosis assessment is performed using [employer] ElastPQ point quantification shear wave elastography (2D-SWE) with a C5-2 MHz transducer. Multiple elastography samples are obtained. FINDINGS: PANCREAS: Limited. The visualized pancreatic head and body are normal in appearance. The remainder of the pancreas is obscured from visualization by the overlying bowel gas. ABDOMINAL AORTA: The proximal, middle, and distal aortic segments are normal in caliber. INFERIOR VENA CAVA: Visualized portions are normal. LIVER: The liver demonstrates normal size, contour and slightly increased echogenicity. No focal lesion. There is mild intrahepatic biliary duct dilatation. The right lobe measures 13.4 cm in length. The left lobe measures 10.4 cm in length. Portal flow is towards the liver (hepatopetal). Shear wave liver elastography median stiffness is 1.30 m/s (reference: normal median stiffness is 1.3 m/s or less). IQR/median stiffness to assess sampling precision is 0.10 (reference: good quality data set is IQR/median stiffness of 0.15 or less). GALLBLADDER: Normal. The gallbladder is physiologically distended without evidence of stones, sludge, polyps, wall thickening or pericholecystic fluid. COMMON BILE DUCT: Normal in caliber measuring 0.4 cm in diameter. RIGHT KIDNEY: Normal. No hydronephrosis. No renal calculi or focal parenchymal lesions. The kidney measures 10.2 cm in maximum dimension. LEFT KIDNEY: Normal. No hydronephrosis. No renal calculi or focal parenchymal lesions. The kidney measures 10.6 cm in maximum dimension. SPLEEN: Normal. The spleen measures 9.1 cm in maximum dimension. FREE FLUID: None. US/US abdomen comp w elastography IMPRESSION: 1. There is very mild generalized increase in hepatic echotexture, consistent with fatty infiltration or hepatocellular disease. Please correlate clinically. No focal hepatic mass or intrahepatic biliary dilatation is seen. 2. There is mild intrahepatic biliary ductal dilatation. 3. Liver elastography: Measurements are consistent with a high probability of normal liver stiffness. 4. Technically limited ultrasound examination of the pancreatic tail. REFERENCE: Society of Radiologists in Ultrasound Liver Stiffness Thresholds (2020): LIVER STIFFNESS THRESHOLDS: *Liver Stiffness equal or less than 1.3 m/s: High probability of being normal. *Liver Stiffness less than 1.7 m/s: In the absence of other known clinical signs, rules out compensated advanced chronic liver disease. *Liver Stiffness 1.7-2.1 m/s: Suggestive of compensated advanced chronic liver disease but need further test for confirmation. *Liver Stiffness over 2.1 m/s: Rules in compensated advanced chronic liver disease. *Liver Stiffness over 2.4 m/s: Suggestive of clinically significant portal hypertension. QUALITY OF DATA SET: *IQR/Median value equal or less than 0.15 implies a quality data set. *IQR/Median value over 0.15 implies a poor quality data set. SIGNIFICANT CHANGE FROM PRIOR EXAM: Significant change if liver stiffness measurement is 10% or greater from prior exam. OTHER CONSIDERATIONS: The stage of liver fibrosis may be overestimated in the setting of acute hepatitis, liver inflammation, elevated liver function tests, hepatic vascular congestion, obstructive cholestasis, non-fasting state, and infiltrative diseases such as amyloidosis and lymphoma. In some patients with NAFLD, the liver stiffness thresholds for compensated advanced chronic liver disease may be lower. In causes other than viral hepatitis and NAFLD, liver stiffness thresholds are not well established. Dictated By: Deon Stephenson MD Signed By: <Electronically signed by Deon Stephenson MD in OV> 08/29/23 193 DD/ 0846 TD/TT: Cash Management Officer: TEE ellis wo/w con Reviewed date:12/01/2023 04:05:27 PM Interpretation: Performing Lab: Notes/Report: [address] [address] Magnetic Resonance Report Signed Patient: Alethea Doll MR#: [id number] : 1955 Acct:[id number] Age/Sex: 67 / F ADM Date: 09/25/23 Loc: HO.MRI Attending Dr: Tommy Roberts MD Ordering Physician: Tommy Roberts of Service: 09/25/23 Procedure(s): MR abdomen wo/w con Accession Number(s): [id number] cc: Tram Darby MD; Tommy Roberts EXAMINATION: MR ABDOMEN WITHOUT AND WITH CONTRAST MR CHOLANGIOPANCREATOGRAPHY CLINICAL INFORMATION: Elevated alkaline phosphatase level, elevated alpha protein,, hepatocellular disease found on ultrasound examination COMPARISON: Ultrasound examination of abdomen on 08/28/2023, MRI of abdomen on 06/27/2018 TECHNIQUE: Examination was performed in a high field strength MRI scanner. Multiplanar multisequence MR imaging of the abdomen was performed without IV contrast enhancement. Multiphasic Axial T1-weighted fat-suppressed images of the upper abdomen were obtained after IV injection of 7 mL Gadavist. Coronal T1-weighted fat-suppressed images of the abdomen were obtained following the dynamic axial series. MR cholangiopancreatography was performed with heavily T2 weighted sequences. 3-dimensional reconstruction of image data was performed. This was performed under concurrent direct supervision and monitoring by radiologist. Maximum intensity projection images were constructed. FINDINGS: MR CHOLANGIOPANCREATOGRAPHY: Gallbladder is surgically absent. Bilateral intra hepatic bile ducts are mildly dilated. Common bile duct are normal in size without filling defects. Pancreatic duct is normal in size. LIVER: The liver shows no focal lesion. The calculated hepatic fat percentage is 4.1%, compatible with normal. PANCREAS: No focal pancreatic lesion with abnormal signal can be seen. SPLEEN: Spleen is normal in size without focal lesion. ADRENAL: Bilateral adrenal glands are normal in shape and size. KIDNEYS: Bilateral kidneys are normal in size without focal lesion. L3-L5 bilateral laminectomies, intervertebral spinal fusion, posterior fixation with transpedicular screws and vertical bars are seen. MR/MR abdomen wo/w con IMPRESSION: 1. Unchanged Status post cholecystectomy. 2. Unchanged Mildly dilated bilateral intrahepatic bile ducts. 3. No focal hepatic mass lesion or suspicious observation could be seen. 4. Unchanged status post L3-L5 bilateral laminectomies, intervertebral spinal fusion, posterior fixation. Dictated By: Daniela Rangel Signed By: <Electronically signed by Daniela Rangel in OV> 10/02/23 1037 DD/ 0910 TD/TT: Cash Management Officer: Liver Panel (Not yet reviewe d by provider) Interpretation: Performing Lab:[facility], [address] [place] [phone] Notes/Report: Bilirubin Total 0.5 0.0-1.0 mg/dL Bilirubin Direct 0.2 0.0-0.5 mg/dL Slight Hem olysis Aspartate Amino Transferase 27 5-31 U/L Slight Hemolysis Alanine Aminotransferase 19 0-31 U/L Total Protein 8.0 6.5-8.0 g/dL Albumin Level 4.0 3.5-5.0 g/dL Alkaline Phosphatase 148 39-117 U/L Other Ref Test - Misc Reviewed date:01/16/2024 07:44:59 PM Interpretation: Performing Lab:[facility], [address] [place] [phone] Notes/Report: LIVER KIDNEY MICROSOMAL AB CODE 60794 Other Ref Test - Misc SEE NOTE LKM-1 ANTIBODY (IGG): <=20.0 U Reference Range: <=20.0 Negative 20.1-24.9 Equivocal >=25.0 Positive Anti-liver/kidney microsomal antibodies (Anti-LKM-1) were previously tested by indirect immunofluorescence (IF) using rodent liver/kidney substrate. Identification of a specific antibody target as cytochrome P450 IID6 has led to the current recombinant based JAQUELINE. Antibodies to this cytochrome are present in approximately 70% of patients with autoimmune hepatitis type 2. This antibody is also present in approximately 10% of patients with hepatitis C infection. THIS TEST PERFORMED AT: [facility] [address] [facility] [place] [address] [phone] DIESEL MAINTENANCE ELECTRICIAN: JAH ROMERO MD, PHD Mitochondrial Antibody Reviewed date:01/16/2024 07:44:22 PM Interpretation: Performing Lab:[facility], [address] [place] [phone] Notes/Report: Mitochondrial Antibodies NEGATIVE NEGATIVE THIS TEST WAS PERFORMED AT: [facility] [address] [address] GRACE WHITMORE MD Mitochondrial Ab Titer TNP REASON FOR REFERRAL No Information MEDICATIONS Medication SIG (Take, Route, Frequency, Duration) Notes Start Date End Date Status BD Pen Needle Mini U/F Active Ibuprofen PRN Active amLODIPine Besylate 10 MG 1 tablet Orally Once a day Active Dicyclomine HCl 10 MG TAKE 1-2 CAPS EVER Y 6 HOURS NEEDED ABDOMINAL CRAMPS/BLOATING/DISCOMFO RT for 90 Active fentaNYL 50 MCG/HR (Schedule II Drug) A PPLY 1 PATCH TO THE SKIN AND CHANGE EVERY OTHER DAY Transdermal for 30 Active Omeprazole 20 MG TAKE 1 CAPSULE BY MO KYH EVERY DAY for 90 Not-Taking MiraLax 17 GM/SCOOP 1 capful from a 238g m bottle to the measured line in 8 ounces of water Orally Twice a day for 30 days 08/16/2022 Active Metamucil 0.52 GM 2 capsules with 8 ou nces of liquid Orally Once or twice a day for constipation for 30 days 08/16/2022 Active Famotidine 20 MG TAKE 1 TABLET BY DAVI TH EVERYDAY AT BEDTIME Orally Twice a day Active tiZANidine HCl Activ e Lisinopril 40 MG TAKE 1 TABLET BY DAVI TH EVERY DAY Orally Once a day Active Lantus 100 UNIT/ML 30 Subcutaneous QHS Active Latanoprost Active IMMUNIZATIONS Vaccine Route Administration Date Status Comme nts Influenza Unknown 06/20/2018 Administered Influenza Unknown 10/03/2018 Refused Influenza Unknown 04/20/2020 Refused Influenza Unknown 11/15/2023 Refused SOCIAL HISTORY Tobacco [...] W/U Status Risk SNOMED Code Notes Problem Abdominal pain, RUQ (right upper quadrant) (R10.11) Active confirmed 408773315 Problem Elevated liver enzymes (R74.8) Active confirmed 108614156 Problem Encounter for screening for malignant neoplasm of colon (Z12.11) Active confirmed 795195402 Problem Irritable bowel syndrome, unspecified type (K58.9) Active confirmed 36469813 Problem Gastroesophageal reflux disease, esophagitis presence not specified (K21.9) Active confirmed 059437686 Problem Abdominal bloating (R14.0) Active confirmed 142463418 Problem Fatty liver (K76.0) Active confirmed Fa tty liver (158028838) Problem History of adenomatous polyp of colon (Z86.010) Active confirmed 623537291 Problem Early satiety (R68.81) Active confirmed Early satiety (732296836) Problem Colon cancer screening (Z12.11) Active confirmed Colon can cer screening (353395317) Problem Constipation (K59.00) Active confirmed Constipation (83622680) Problem Abdominal pain, generalized (R10.84) Active confirmed 450849571 Problem Elevated alkaline phosphatase level (R74.8) Active confirmed Alkaline phosphatase raised (320835577) Problem Abnormal ultrasound of biliary tract (R93.2) Active confirmed Abnormal findings diagnostic imaging of liver and biliary tract (181427729) Problem Elevated alpha fetoprotein (R77.2) Active confirmed Serum alpha-fetoprote in level elevated (061780388) Problem Elevated liver function tests (R79.89) Active confirmed Elevated liver enzymes level (839472462) VITAL SIGNS Temperature 98.2 degrees Fahrenheit 11/15/2023 Blood pressure diastolic 00 mm Hg 11/15/2023 Height 63 in 11/15/2023 Blood pressure systolic 000 mm Hg 11/15/2023 Weight 159 lb 4 oz lbs 11/15/2023 BMI 28.21 kg/m2 11/15/2023 Encounters Encounter Location Date Provider Diagnosis [facility] [address] [place] [phone] 11/15/2023 Tommy Roberts Elevated alkaline phosphatase level R74.8 ; Elevated liver function tests R79.89 ; Irritable bowel syndrome, unspecified type K58.9 ; Gastroesophageal reflux disease, esophagitis presence not specified K21.9 and Fatty liver K76.0 [facility] [address] [place] [phone] 09/06/2023 Tommy Roberts [facility] [address] [place] [address] 09/06/2023 Tommy Roberts Elevated alkaline phosphatase level R74.8 ; Abnormal ultrasound of biliary tract R93.2 and Elevated alpha fetoprotein R77.2 ASSESSMENTS Encounter Date Diagnosis Assessment Notes Treatment Notes Treatment Clinical Notes 11/15/2023 Elevated liver funct ion tests (ICD-10 - R79.89) 11/15/2023 Elevated alkaline phosphatase level (ICD-10 - R74.8) 09/06/2023 Elevated alkaline phosphatase level (ICD-10 - R74.8) 09/06/2023 Abnormal ultrasound of biliary tract (ICD-10 - R93.2) 11/15/2023 Irritable bowel syndrome, unspecified type (ICD-10 - K58.9) 09/06/2023 Elevated alpha fetoprotein (ICD-10 - R77.2) 11/15/2023 Gastroesophageal ref lux disease, esophagitis presence not specified (ICD-10 - K21.9) 11/15/2023 Fatty liver (ICD-10 - K76.0) PLAN OF TREATMENT Pending Test Test Name Order Date BUN 09/06/2023 LIVER PROFILE 07/03/2018 LIVER PROFILE 08/06/2023 LIVER PROFILE 04/20/2020 LIVER PROFILE 10/07/2019 LIVER PROFILE 10/11/2020 LIVER PROFILE 11/15/2023 AMYLASE 10/07/2019 LIPASE 10/07/2019 GGT 08/06/2023 CBC w DIFF 10/07/2019 PROTHROMBIN TIME (PT, INR) 10/07/2019 ALPHA-FETOPROTEIN,TUMOR MARKER 4 MRI ABD W&WO CONTRAST 09/06/2023 NUC GASTRIC ANTRUM EMPTYING 04/24/2022 Liver Panel 01/03/2024 Creatinine 09/06/2023 Liver Fibrosis Pnl 08/06/2023 Mitochondrial Antibody 11/15/2023 Liver Kidney Microsomal Ab 11/15/2023 US abdomen comp w elastography 4 Future Test Test Name Order Date COLONOSCOPY 10/11/2020 COLONOSCOPY 06/07/2021 Next Appt Details Provider Name:Tommy Roberts , 11/13/2024 01:00:00 PM, [address] [facility], [address], [place], [address], Insurance Providers Payer Name Payer Address Payer Phone Subscriber Number Group Number Insured Name Patient Relationship to Insured Coverage Start Date Coverage End Date [facility] [address] [place] [phone] [id number] ALETHEA DOLL Self - patient is the insured [facility] [address] [place] [address] [id number] ALETHEA DOLL Self - patient is the insured MEDICAL (GENERAL) HISTORY Medical History History ICD Code IDDM Hypertension Denies TX,CVA,Lung disease,renal disease Neg. colonoscopy in 2004 wit h me and a negative colonoscopy [place] [address] Nguyen EGD [place] [address] Nguyen- -mild gastritis with biopsies negative for H. pylori. Elevated LFTs in 2018--neg. w/u, includi ng MRCP-- fatty liver Back pain Colonoscopy in November of 2020 r evealed a small tubular adenoma that was removed, but the prep was suboptimal. Further attempts at rescheduling a colonoscopy with a better clean out have been unsuccessful due to her inability to tolerate the bowel prep Normal Nuclear medicine Gastric emptying study 05/2022 Chronic constipation, most likely relati on to her use of a fentanyl patch Surgical History Surgery Date(Month/Year) Cholecystectomy > 20 years ago MELONIE Lower back spinal fusion Cervical disc surgery--Dr. Heath 07/2020
--- OUTSIDE RECORDS SUMMARY | 2024-08-19 14:13 | XMS_ITS ---
Author Organization [facility] Address [address] [place] [address] Care Team Providers Care Cafe Manager Name Role Phone Wilner GONSALES, [facility] Primary Care Provider Tommy Almonte [phone] REASON FOR VISIT Needs MRI/MRCP PROBLEMS Problem Type ICD Code Onset Dates Problem Status W/U Status Risk SNOMED Code Notes Problem Elevated alkaline phosphatase level (R74.8) Active confirmed Alkaline phosphatase raised (456226950) Problem Abnormal ultrasound of biliary tract (R93.2) Active confirmed Abnormal findings diagnostic imaging of liver and biliary tract (328550867) Problem Elevated alpha fetoprotein (R77.2) Active confirmed Serum alpha-fetoprote in level elevated (187063115) Encounters Encounter Location Date Provider Diagnosis [facility] [address] [place] [phone] 09/06/2023 Tommy Roberts Elevated alkaline phosphatase level [...] Provider Name:Tommy Roberts , 11/13/2024 01:00:00 PM, [address] [place] [address], [address], [place], [phone],
== END ==
LOC: HO.CARD 12:51
PROVIDERS: PCP Internal Medicine; Visit Provider Internal Medicine
DX: R07.89 Other chest pain (principal); R00.2 Palpitations
CPT/HCPCS: 93242; 93306

== ENCOUNTER → 2024-08-19 12:55 | Outpatient (BNV) | payer MEDICARE, SELFPAY | PROVIDERS: PCP Internal Medicine; Visit Provider Internal Medicine Cardiovascular Disease | DX: I51.89 Other ill-defined heart diseases (principal) | CPT/HCPCS: 93306 ==

== ENCOUNTER 2024-09-30 09:49 | Outpatient (AMB) | payer MEDICARE, MEDICAID, SELFPAY ==
--- NOTE | 2024-09-30 09:52 | A.OFFPC_ITS ---
Vital Signs 09/30/24 09:54 Height 5 ft 4 in Weight 161 lb BMI 27.6 BP 128/66 Blood Pressure Location Lt brachial Position Sitting Pulse 92 Pulse Source Pulse Oximeter Pulse Oximetry (%) 98 Oxygen Delivery Method Room Air Intake Visit Reasons: 2 month follow up - see comments Allergies duloxetine [From Cymbalta] Allergy (Intermediate, Verified 09/30/24 09:56) Gastrointestinal Upset gabapentin Allergy (Intermediate, Verified 09/30/24 09:56) Gastrointestinal Upset milnacipran [From Savella] Allergy (Intermediate, Verified 09/30/24 09:56) Gastrointestinal Upset naloxegol [Movantik] Allergy (Intermediate, Verified 09/30/24 09:56) Gastrointestinal Upset pregabalin [From Lyrica] Allergy (Intermediate, Verified 09/30/24 09:56) Gastrointestinal Upset Medication List - Last Reconciled 09/30/24 by Tram Darby MD albuterol sulfate 90 mcg/actuation 1 - 2 puffs PO Q4-6H PRN 30 days amlodipine 10 mg PO DAILY 90 days blood sugar diagnostic (TransaqTouch Ultra Blue Test Strip) patient to check blood sugar 3 times daily blood-glucose meter (FreeStyle Lite Meter kit) patient to check blood sugar 3 times daily blood-glucose meter (OneTouch Ultra2 Meter) Patient to check blood sugar 3 times daily famotidine 40 mg PO BEDTIME fentanyl 50 mcg/hr 1 patch transdermal Q48H 30 days insulin glargine (Lantus Solostar U-100 Insulin) 30 units (0.3 mL) subcut DAILY 90 days latanoprost 0.005% 1 drp ophthalmic (eye) BEDTIME lisinopril 40 mg PO DAILY 90 days omeprazole 20 mg PO DAILY ondansetron HCl 4 mg PO ONCE PRN 30 days oxycodone 5 mg PO DAILY PRN 30 days pen needle, diabetic qd pen needle, diabetic qd pen needle, diabetic qd sucralfate (Carafate) 1 g PO BID tizanidine 4 mg PO BEDTIME PRN 90 days Tobacco use date assessed: 09/30/24 Fall risk assessment: No Falls in past year Last assessed Fall Risk: 09/30/24 Dental Screening Dental Screen Date: 09/30/24 Did you have a dental visit in the last 12 months?: Yes Did you have a dental problem in the last 6 months where you did not have access to dental care?: No Was dental information given to patient?: Patient has dentist HPI 2 month follow up - see comments HPI Details History - The patient is a 68-year-old female wi th a history of failed back syndrome elevated liver enzymes under care of [facility], diabetes, chronic GERD On narcotic pain medication like fentanyl chronically, hypertension, lipid disorder but not able to take statins Came in for her regular follow-up appointment today presenting with right shoulder pain. - Right shoulder pain began without any specific inciting event or recent physical activities. - Pain described as severe, originating from the neck, radiating to the right shoulder and chest. - MRI from 2019 showed C6-C7 disc protru kaye with moderate canal stenosis, with no recent imaging follow-up. - The patient underwent neck surgery las t year, performed by Dr. PICKARD, to address a herniated intervertebral disc, but symptoms persist. - Reports tingling and possible weakness in the hand, indicating the pain may involve cervical nerves. - Pain has progressively worsened after the initial surgical intervention. Medications - Amlodipine 10 mg for hypertension - Famotidine 40 mg for GERD - Fentanyl 50 mcg for pain management - Insulin 30 units for diabetes manageme nt - Lisinopril 40 mg for hypertension - Omeprazole 20 mg for GERD - Oxycodone for pain management, used oc casionally - Sucralfate 1 g BID - Tizanidine 4 mg at bedtime for muscle spasms Problem List - Right Shoulder Pain - C6-C7 Disc Protrusion with Moderate Ca nal Stenosis - Essential Hypertension - Herniated Intervertebral Disc Status P ost-Surgery (Neck) - Arthritis - Gastroesophageal Reflux Disease (GERD) Diagnostic results - MRI (2019): C6-C7 disc protrusion with moderate canal stenosis Patient Instructions - Call Dr. PICKARD, the surgeon who performed the neck surgery, to report persistent and worsening pain for follow-up. - Follow up with roller presser operator as needed for CT scan scheduled next week. - Ensure to complete laboratory tests be fore the CT scan, as ordered. - Schedule an appointment for medication review and preoperative evaluation for eye surgery on October 28, adjust current appointments as necessary. Review of Systems General: No fever no chills neurological: No headaches no dizziness ear nose throat: No sore throat no hearing difficulty no ear pain cardiovascular: No syncope, no chest pain, no palpitations gastrointestinal: No nausea vomiting or diarrhea endocrine: No polyuria polydipsia no heat intolerance genitourinary: No dysuria skin: No new complaints Physical Exam general: No acute distress HEENT: No acute findings neck: Supple, but patient reports pain radiating from the neck to the shoulder respiratory system: Able to talk in full sentences, no audible wheeze, no stridor, lungs are clear cardiovascular: S1-S2 gastrointestinal: No pain extremities: No new findings, no swelling of ankles RN BURN: Alert awake oriented x3 motor sensory intact, but patient reports tingling sensation right hand skin: Normal turgor PFSH Medical History Asthma Hx of irritable bowel syndrome Pain management Narcotic dependence Herniated nucleus pulposus, cervical Hypertension, essential Muscle spasm 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 Mother Stomach cancer Social History Housing: House Alcohol intake: never Patient Tobacco Use Status: Never used Tobacco e-Cigarette/Vaping Use: Never Used service: No Current occupational status: disabled Cognitive needs: No Hearing needs: No Vision needs: Yes Questionnaire PHQ-9 Over the last 2 weeks, how often have you been bothered by any of the following problems? 1. Little interest or pleasure in doing things: several days 2. Feeling down, depressed, or hopeless: several days 3. Trouble falling or staying asleep, or sleeping too much: several days 4. Feeling tired or having little energy: several days 5. Poor appetite or overeating: more than half the days 6. Feeling bad about yourself - or that you are a failure or have let yourself or your family down: not at all 7. Trouble concentrating on things, such as reading the newspaper or watching television: not at all 8. Moving or speaking so slowly that other people could have noticed. Or the opposite - being so fidgety or restless that you have been moving around a lot more than usual: not at all 9. Thoughts that you would be better off or of hurting yourself in some way: not at all Total score: 6 Depression Screening Interpretation: Negative Depression Screening Done: Yes 33220 - PHQ-9 Billing: Yes Source: Developed by Drs. Tommy Graham, Marnie Ford, Sebastien Vaughn and colleagues, with an educational mayito from [employer]. Thrive Questionnaire Date Thrive assessed: 09/30/24 I am a: Patient AUDIT C Alcohol Use Questionnaire (AUDIT-C) 1. How often do you have a drink containing alcohol?: Never 3. How often do you have six or more drinks on one occasion?: Never Total Score: 0 Score Reviewed/Action Taken: Yes SACHIN-7 AMB Questionnaire SACHIN-7 Date SACHIN - 7 assessed: 08/04/24 Source: Developed by Drs. Tommy Graham, Marnie Ford, Sebastien Vaughn and colleagues, with an educational mayito from [employer]. Physical exam (Primary Care) Vital Signs: Last Vital Signs Pulse 92 09/30/24 09:54 BP 128/66 09/30/24 09:54 Pulse Ox 98 09/30/24 09:54 Oxygen Delivery Method Room Air 09/30/24 09:54 BMI result Body Mass Index 27.6 Tobacco/Smoking Status: Tobacco use Status Tobacco use date assessed 09/30/24 09/30/24 09:57 Patient Tobacco Use Status Never used Tobacco 09/30/24 09:57 e-Cigarette/Vaping Use Never Used 09/30/24 09:57 PHQ-9: PHQ-9 Score PHQ-9: Total score 6 09/30/24 09:57 Depression Screening Interpretation: Negative Thrive Assessment: Date of Thrive Assessment Date Thrive assessed 09/30/24 09/30/24 09:57 Coding Level of Care Code Est Pt Level 5 (64031) Complex EM visit Add On G2211 Diagnoses Radiculitis of right cervical region M54.12 Diabetes 1.5, managed as type 1 E13.9 LFTs abnormal R94.5 Hypertension, essential I10 Chronic GERD K21.9 Failed back syndrome M96.1 Muscle spasm M62.838 Narcotic dependence F11.20 Additional Codes PHQ-9 - 22010 - PHQ-9 Billing: Yes ([id number]) Time Spent (min) 40 Comment Reviewing chart/labs/nqvq-bx-fkys/coordination of care Assessment & Plan Assessment & Plan (1) Radiculitis of right cervical region: Code(s): M54.12 - Radiculopathy, cervical region Category: Medical (2) Diabetes 1.5, managed as type 1: Comment: taking lantus insulin Code(s): E13.9 - Other specified diabetes mellitus without complications Category: Medical (3) LFTs abnormal: Comment: hx fatty liver Code(s): R94.5 - Abnormal results of liver function studies Category: Medical (4) Hypertension, essential: Code(s): I10 - Essential (primary) hypertension Category: Medical (5) Chronic GERD: Code(s): K21.9 - Gastro-esophageal reflux disease without esophagitis Category: Medical (6) Failed back syndrome: Comment: uses fentanyl patch & oxycodone Code(s): M96.1 - Postlaminectomy syndrome, not elsewhere classified Category: Medical (7) Muscle spasm: Code(s): M62.838 - Other muscle spasm Category: Medical (8) Narcotic dependence: Code(s): F11.20 - Opioid dependence, uncomplicated Category: Medical Plan History - The patient is a 68-year-old female with a history of failed back syndrome elevated liver enzymes under care of [facility], diabetes, chronic GERD On narcotic pain medication like fentanyl chronically, hypertension, lipid disorder but not able to take statins Came in for her regular follow-up appointment today presenting with right shoulder pain. - Right shoulder pain began without any specific inciting event or recent physical activities. - Pain described as severe, originating from the neck, radiating to the right shoulder and chest. - MRI from 2019 showed C6-C7 disc protrusion with moderate canal stenosis, with no recent imaging follow-up. - The patient underwent neck surgery last year, performed by Dr. PICKARD, to address a herniated intervertebral disc, but symptoms persist. - Reports tingling and possible weakness in the hand, indicating the pain may involve cervical nerves. - Pain has progressively worsened after the initial surgical intervention. Medications - Amlodipine 10 mg for hypertension - Famotidine 40 mg for GERD - Fentanyl 50 mcg for pain management - Insulin 30 units for diabetes management - Lisinopril 40 mg for hypertension - Omeprazole 20 mg for GERD - Oxycodone for pain management, used occasionally - Sucralfate 1 g BID - Tizanidine 4 mg at bedtime for muscle spasms Problem List - Right Shoulder Pain - C6-C7 Disc Protrusion with Moderate Canal Stenosis - Essential Hypertension - Herniated Intervertebral Disc Status Post-Surgery (Neck) - Arthritis - Gastroesophageal Reflux Disease (GERD) Diagnostic results - MRI (2019): C6-C7 disc protrusion with moderate canal stenosis Patient Instructions - Call Dr. PICKARD, the surgeon who performed the neck surgery, to report persistent and worsening pain for follow-up. - Follow up with roller presser operator as needed for CT scan scheduled next week. - Ensure to complete laboratory tests before the CT scan, as ordered. - Schedule an appointment for medication review and preoperative evaluation for eye surgery on October 28, adjust current appointments as necessary. Orders: Orders Microalbumin, Random (w Creat) Today E13.9 - Other specified diabetes mellitus without complications, F11.20 - Opioid dependence, uncomplicated, I10 - Essenti al (primary) hypertension, K21.9 - Gastro-esophageal reflux disease without esophagitis, M54.12 - Radiculopathy, cervical region, M62.838 - Other muscle spasm, M96.1 - Postlaminectomy syndrome, not elsewhere classified, R94.5 - Abnormal results of liver function studies Hemoglobin A1c Today E13.9 - Other specified diabetes mellitus without complications, F11.20 - Opioid dependence, uncomplicated, I10 - Essential (primary) hypertension, K21.9 - Gastro-esophageal reflux disease without esophagitis, M54.12 - Radiculopathy, cervical region, M62.838 - Other muscle spasm, M96.1 - Postlaminectomy syndrome, not elsewhere classified, R94.5 - Abnormal results of liver function studies Complete Blood Count Auto Diff Today E13.9 - Other specified diabetes mellitus without complications, F11.20 - Opioid dependence, uncomplicated, I10 - Essential (primary) hypertension, K21.9 - Gastro-esophageal reflux disease without esophagitis, M54.12 - Radiculopathy, cervical region, M62.838 - Other muscle spasm, M96.1 - Postlaminectomy syndrome, not elsewhere classified, R94.5 - Abnormal results of liver function studies Comprehensive [place]. Panel Fast Today E13.9 - Other specified diabetes mellitus without complications, F11.20 - Opioid dependence, uncomplicated, I10 - Essential (primary) hypertension, K21.9 - Gastro-esophageal reflux disease without esophagitis, M54.12 - Radiculopathy, cervical region, M62.838 - Other muscle spasm, M96.1 - Postlaminectomy syndrome, not elsewhere classified, R94.5 - Abnormal results of liver function studies Lipid Panel Today E13.9 - Other specified diabetes mellitus without complications, F11.20 - Opioid dependence, uncomplicated, I10 - Essential (primary) hypertension, K21.9 - Gastro-esophageal reflux disease without esophagitis, M54.12 - Radiculopathy, cervical region, M62.838 - Other muscle spasm, M96.1 - Postlaminectomy syndrome, not elsewhere classified, R94.5 - Abnormal results of liver function studies Vitamin D 25-OH (D2 and D3) Today E13.9 - Other specified diabetes mellitus without complications, F11.20 - Opioid dependence, uncomplicated, I10 - Essential (primary) hypertension, K21.9 - Gastro-esophageal reflux disease without esophagitis, M54.12 - Radiculopathy, cervical region, M62.838 - Other muscle spasm, M96.1 - Postlaminectomy syndrome, not elsewhere classified, R94.5 - Abnormal results of liver function studies Vitamin B12 Today E13.9 - Other specified diabetes mellitus without complications, F11.20 - Opioid dependence, uncomplicated, I10 - Essential (primary) hypertension, K21.9 - Gastro-esophageal reflux disease without esophagitis, M54.12 - Radiculopathy, cervical region, M62.838 - Other muscle spasm, M96.1 - Postlaminectomy syndrome, not elsewhere classified, R94.5 - Abnormal results of liver function studies TSH reflex Free T4 Today E13.9 - Other specified diabetes mellitus without complications, F11.20 - Opioid dependence, uncomplicated, I10 - Essential (primary) hypertension, K21.9 - Gastro-esophageal reflux disease without e sophagitis, M54.12 - Radiculopathy, cervical region, M62.838 - Other muscle spasm, M96.1 - Postlaminectomy syndrome, not elsewhere classified, R94.5 - Abnormal results of liver function studies Medications: Refilled oxycodone Partial Fill upon patient request. 5 mg PO DAILY 30 days PRN 30 tabs 0RF pain fentanyl 50 mcg/hr 1 patch transdermal Q48H 30 days 15 ea 0RF F11.20 - Opioid dependence, uncomplicated, M50.20 - Other cervical disc displacement, unspecified cervical region, M96.1 - Postlaminectomy syndrome, not elsewhere classified, R52 - Pain, unspecified
[2024-09-30 09:54] VITALS: BP 128/66; PULSE 92; O2SAT 98; BMI 27.6
== END 2024-09-30 10:22 | disposition home or self-care (01) ==
LOC: HO.HMCC 09:50
PROVIDERS: PCP Internal Medicine; Visit Provider Internal Medicine
DX: M54.12 Radiculopathy, cervical region (principal); E13.9 Other specified diabetes mellitus without complications; F11.20 Opioid dependence, uncomplicated; R94.5 Abnormal results of liver function studies; I10 Essential (primary) hypertension; K21.9 Gastro-esophageal reflux disease without esophagitis; M96.1 Postlaminectomy syndrome, not elsewhere classified; M62.838 Other muscle spasm

== ENCOUNTER 2024-09-30 09:49 | Outpatient (REF) | payer MEDICARE, MEDICAID, SELFPAY ==
[2024-09-30 13:53] LABS: Basophils Absolute Auto 0.1 X10*3/uL (0.0-0.2); Basophils Percent Auto 0.5 % (0-2); Eosinophils Absolute Auto 0.2 X10*3/uL (0.0-0.4); Eosinophils Percent Auto 1.7 % (0-4); Hematocrit 41.2 % (37.0-47.0); Hemoglobin 13.4 g/dl (12.0-16.0); Imm Gran Abs Auto 0.04 X10*3/uL (0.00-0.03); Imm Gran Pct Auto 0.4 % (0.0-0.4); Lymphocytes Absolute Auto 2.2 X10*3/uL (1.2-4.9); Lymphocytes Percent Auto 21.4 % (20-40); MANUAL DIFF FLAG SCAN; Mean Corpuscular HGB Conc 32.5 g/dl (31.0-35.0); Mean Corpuscular Hemoglobin 29.7 pg (27.0-33.0); Mean Corpuscular Volume 91.4 fL (80.0-98.0); Monocytes Absolute Auto 0.8 X10*3/uL (0.1-1.2); Monocytes Percent Auto 7.3 % (2-11); Neutrophils Absolute Auto 7.2 x10*3/uL (2.0-8.3); Neutrophils Percent Auto 68.7 % (45-73); PLT CLUMP 1; Red Blood Count 4.51 X10*6/uL (4.20-5.50); Red Cell Distribution Width 13.9 % (11.0-16.0); SCAN SMEAR FLAG 1
[2024-09-30 13:56] LABS: Estimated Average Glucose 194 mg/dL; Hemoglobin A1c % 8.4 % (<6.0); Total Hemoglobin (HGBA1C) 3547.8261 umol/L
[2024-09-30 14:12] LABS: Alanine Aminotransferase 252 U/L (0-31); Albumin Level 4.2 g/dL (3.5-5.0); Alkaline Phosphatase 405 U/L (39-117); Anion Gap 14 (12-20); Aspartate Amino Transferase 88 U/L (5-31); Bilirubin Total 0.5 mg/dL (0.0-1.0); Blood Urea Nitrogen 18 mg/dL (9-16); Calcium 9.7 mg/dL (8.4-10.2); Carbon Dioxide 26 mmol/L (22-29); Chloride 105 mmol/L (96-108); Cholesterol 234 mg/dL (<200); Estimated Glomerular Filt Rate 48; Glucose Fasting 179 mg/dL (60-99); HDL Cholesterol 67 mg/dL (>40); LDL Cholesterol Calculated 129 mg/dL (<100); Potassium 4.8 mmol/L (3.3-5.1); Sodium 140 mmol/L (135-145); Total Protein 8.4 g/dL (6.5-8.0); Triglycerides 194 mg/dL (<150)
[2024-09-30 14:17] LABS: Mean Platelet Volume 13.1 fL (9.4-12.3); Platelet Count 166 X10*3/uL (160-400); SLIDE REVIEW VERIFIED; White Blood Count 10.5 X10*3/uL (4.8-10.8)
[2024-09-30 14:21] LABS: Creatinine Urine 175.15 mg/dL; Microalbum/Creatinine Ratio Ur 4.5 ug/mg cr (<30)
[2024-09-30 14:26] LABS: Vitamin B12 451 pg/mL (200-900)
[2024-09-30 14:29] LABS: TSH reflex Free T4 1.29 uIU/mL (0.32-4.0)
[2024-10-05 21:19] LABS: Vitamin D 25-OH, D2 <4 ng/mL; Vitamin D 25-OH, D3 26 ng/mL; Vitamin D 25-OH, Total 26 ng/mL (30-100)
== END 2024-09-30 09:50 | disposition home or self-care (01) ==
LOC: HO.HMGCLDS 09:49
PROVIDERS: PCP Internal Medicine; Visit Provider Internal Medicine
DX: M54.12 Radiculopathy, cervical region (principal); E13.9 Other specified diabetes mellitus without complications; R94.5 Abnormal results of liver function studies; I10 Essential (primary) hypertension; K21.9 Gastro-esophageal reflux disease without esophagitis; M96.1 Postlaminectomy syndrome, not elsewhere classified; M62.838 Other muscle spasm; Z79.4 Long term (current) use of insulin; Z79.891 Long term (current) use of opiate analgesic; Z79.899 Other long term (current) drug therapy
CPT/HCPCS: 36415; 80053; 80061; 82043; 82306; 82570; 82607; 83036; 84443; 85025; 96127; 99212

== ENCOUNTER 2024-10-20 12:32 | Outpatient (AMB) | payer MEDICARE, MEDICAID, SELFPAY ==
[2024-10-20 12:39] VITALS: BP 168/74; PULSE 83; O2SAT 96; BMI 27.9
--- NOTE | 2024-10-20 12:39 | A.OFFPC_ITS ---
Vital Signs 10/20/24 12:39 Height 5 ft 4 in Weight 162 lb 8 oz BMI 27.9 BP 168/74 H Blood Pressure Location Rt brachial Position Sitting Pulse 83 Pulse Source Pulse Oximeter Pulse Oximetry (%) 96 Oxygen Delivery Method Room Air Intake Visit Reasons: Stomach Pain/ Sugar levels Allergies duloxetine [From Cymbalta] Allergy (Intermediate, Verified 10/20/24 12:41) Gastrointestinal Upset gabapentin Allergy (Intermediate, Verified 10/20/24 12:41) Gastrointestinal Upset milnacipran [From Savella] Allergy (Intermediate, Verified 10/20/24 12:41) Gastrointestinal Upset naloxegol [Movantik] Allergy (Intermediate, Verified 10/20/24 12:41) Gastrointestinal Upset pregabalin [From Lyrica] Allergy (Intermediate, Verified 10/20/24 12:41) Gastrointestinal Upset Medication List - Last Reconciled 10/20/24 by Tram Darby MD albuterol sulfate 90 mcg/actuation 1 - 2 puffs PO Q4-6H PRN 30 days amlodipine 10 mg PO DAILY 90 days blood sugar diagnostic (SnapMDTouch Ultra Blue Test Strip) patient to check blood sugar 3 times daily blood-glucose meter (FreeStyle Lite Meter kit) patient to check blood sugar 3 times daily blood-glucose meter (OneTouch Ultra2 Meter) Patient to check blood sugar 3 times daily famotidine 40 mg PO BEDTIME fentanyl 50 mcg/hr 1 patch transdermal Q48H 30 days insulin glargine (Lantus Solostar U-100 Insulin) 30 units (0.3 mL) subcut DAILY 90 days latanoprost 0.005% 1 drp ophthalmic (eye) BEDTIME lisinopril 40 mg PO DAILY 90 days omeprazole 20 mg PO DAILY ondansetron HCl 4 mg PO ONCE PRN 30 days oxycodone 5 mg PO DAILY PRN 30 days pen needle, diabetic qd pen needle, diabetic qd pen needle, diabetic qd sucralfate (Carafate) 1 g PO BID tizanidine 4 mg PO BEDTIME PRN 90 days Tobacco use date assessed: 10/20/24 Fall risk assessment: No Falls in past year Last assessed Fall Risk: 10/20/24 Dental Screening Dental Screen Date: 10/20/24 Did you have a dental visit in the last 12 months?: Yes Did you have a dental problem in the last 6 months where you did not have access to dental care?: No Was dental information given to patient?: Patient has dentist HPI Stomach Pain/ Sugar levels HPI Details History - The patient is a 68-year-old female pr esenting with abdominal pain, muscle spasm, and liver inflammation. - Abdominal pain began acutely last week with burning sensation and was associated with an inability to consume solid foods. Pain is located near the spine and described as very discomforting. - Muscle spasm was noted as a significan t bump near the spine, large in size initially but resolved spontaneously. - Hyperglycemia was noted with blood glu cose levels reaching approximately 400 mg/dL yesterday, though morning levels today were at 162 mg/dL. Previous levels have been under 100 or 120 mg/dL frequently. - The patient reported associated sympto ms including chills with variability in being hot or cold at times, but denied any fever. But feeling okay at this time - patient have a chronic LFT elevation, currently she is seeing Dr. Roberts only once a year, I am putting referral for her to see Dr. Jones for the management On examination today she is tender over right upper quadrant Her liver enzymes are getting worse last time checked was 3 weeks ago We will await repeating the labs today again Meanwhile she is to continue with chicken broth and very light diet, if pain got worse she is to go to emergency room Last bowel movement this morning no problem with bowel movements Problem List - Abdominal Pain - Muscle Spasm - Liver Inflammation /LFT elevation - fluctuating blood sugar with a diagnos is of insulin-dependent diabetes Patient Instructions - Continue monitoring blood glucose leve ls regularly. Adjust insulin as needed based on readings. - Avoid solid foods; focus on consuming liquids such as chicken broth and pureed vegetables. - Discontinue use of oxycodone and limit acetaminophen to avoid additional liver stress. - Seek urgent care if symptoms significa ntly worsen or if unable to manage at home. - Await further imaging and lab tests as instructed for evaluation of liver inflammation. Ultrasound liver ordered - Schedule an appointment with Dr. Juan Alberto crystal, a liver specialist, at [facility]. Review of Systems - General: No fever no chills - Neurological: No headaches no dizziness - Ear nose throat: No sore throat no hearing difficulty no ear pain - Cardiovascular: No syncope, no chest pain, no palpitations - Endocrine: No polyuria polydipsia no heat intolerance - Genitourinary: No dysuria , no blood in urine Physical Exam General: No acute distress HEENT: No acute findings Neck: Supple Respiratory system: Able to talk in full sentences, no audible wheeze Cardiovascular: S1-S2 regular in rate and rhythm Gastrointestinal: Tender over right upper quadrant with palpation bowel sounds positive Extremities: No new findings 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: Alert awake oriented x3 motor sensory intact Skin: Normal turgor, reports of chills and feeling hot and cold at times [facility] History Asthma Hx of irritable bowel syndrome Pain management Narcotic dependence Herniated nucleus pulposus, cervical Hypertension, essential Muscle spasm 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 Mother Stomach cancer Social History Housing: House Alcohol intake: never Patient Tobacco Use Status: Never used Tobacco e-Cigarette/Vaping Use: Never Used service: No Current occupational status: disabled Cognitive needs: No Hearing needs: No Vision needs: Yes Questionnaire PHQ-9 Over the last 2 weeks, how often have you been bothered by any of the following problems? 71572 - PHQ-9 Billing: Patient declined-do not bill Source: Developed by Drs. Tommy Graham, Marnie Ford, Sebastien Vaughn and colleagues, with an educational mayito from [employer]. Thrive Questionnaire Date Thrive assessed: 09/30/24 AUDIT C Alcohol Use Questionnaire (AUDIT-C) 1. How often do you have a drink containing alcohol?: Never 3. How often do you have six or more drinks on one occasion?: Never Total Score: 0 Score Reviewed/Action Taken: Yes SACHIN-7 AMB Questionnaire SACHIN-7 Date SACHIN - 7 assessed: 08/04/24 Source: Developed by DrsBalta Graham, Marnie Ford, Sebastien Vaughn and colleagues, with an educational mayito from [employer]. Physical exam (Primary Care) Vital Signs: Last Vital Signs Pulse 83 10/20/24 12:39 BP 168/74 H 10/20/24 12:39 Pulse Ox 96 10/20/24 12:39 Oxygen Delivery Method Room Air 10/20/24 12:39 BMI result Body Mass Index 27.9 Tobacco/Smoking Status: Tobacco use Status Tobacco use date assessed 10/20/24 10/20/24 12:42 Patient Tobacco Use Status Never used Tobacco 10/20/24 12:40 e-Cigarette/Vaping Use Never Used 10/20/24 12:40 Thrive Assessment: Date of Thrive Assessment Date Thrive assessed 09/30/24 10/20/24 12:40 Coding Level of Care Code Est Pt Level 4 (35178) Diagnoses RUQ abdominal pain R10.11 Right lumbar radiculitis M54.16 LFT elevation R79.89 Assessment & Plan Assessment & Plan (1) RUQ abdominal pain: Code(s): R10.11 - Right upper quadrant pain Category: Medical (2) Right lumbar radiculitis: Code(s): M54.16 - Radiculopathy, lumbar region Category: Medical (3) LFT elevation: Code(s): R79.89 - Other specified abnormal findings of blood chemistry Category: Medical Plan History - The patient is a 68-year-old female presenting with abdominal pain, muscle spasm, and liver inflammation. - Abdominal pain began acutely last week with burning sensation and was associated with an inability to consume solid foods. Pain is located near the spine and described as very discomforting. - Muscle spasm was noted as a significant bump near the spine, large in size initially but resolved spontaneously. - Hyperglycemia was noted with blood glucose levels reaching approximately 400 mg/dL yesterday, though morning levels today were at 162 mg/dL. Previous levels have been under 100 or 120 mg/dL frequently. - The patient reported associated symptoms including chills with variability in being hot or cold at times, but denied any fever. But feeling okay at this time - patient have a chronic LFT elevation, currently she is seeing Dr. Roberts only once a year, I am putting referral for her to see Dr. Jones for the management On examination today she is tender over right upper quadrant Her liver enzymes are getting worse last time checked was 3 weeks ago We will await repeating the labs today again Meanwhile she is to continue with chicken broth and very light diet, if pain got worse she is to go to emergency room Last bowel movement this morning no problem with bowel movements Problem List - Abdominal Pain - Muscle Spasm - Liver Inflammation /LFT elevation - fluctuating blood sugar with a diagnosis of insulin-dependent diabetes Patient Instructions - Continue monitoring blood glucose levels regularly. Adjust insulin as needed based on readings. - Avoid solid foods; focus on consuming liquids such as chicken broth and pureed vegetables. - Discontinue use of oxycodone and limit acetaminophen to avoid additional liver stress. - Seek urgent care if symptoms significantly worsen or if unable to manage at home. - Await further imaging and lab tests as instructed for evaluation of liver inflammation. Ultrasound liver ordered - Schedule an appointment with Dr. Jones, a liver specialist, at [facility]. Orders: Orders Comprehensive Met. Panel Today R10.11 - Right upper quadrant pain US abdomen limited Today R10.11 - Right upper quadrant pain, R79.89 - Other specified abnormal findings of blood chemistry Referrals Gastroenterology Referral R10.11 - Right upper quadrant pain, R79.89 - Other specified abnormal findings of blood chemistry
--- OUTSIDE RECORDS SUMMARY | 2024-10-20 15:19 | XMS_ITS ---
Author Organization [facility] Address [address] [place] [address] Care Team Providers Care Carbide Tool Maker Name Role Phone Wilner GONSALES, Asma Primary Care Provider Tommy Almonte [phone] REASON FOR VISIT results ultrasound and labs Encounters Encounter Location Date Provider Diagnosis [facility] [address] [place] [address] 09/06/2023 Tommy Roberts Plan Of Treatment Next Appt Details Provider Name:Tommy Roberts , 11/13/2024 01:00:00 PM, [address], [address], [place], [address], Progress Notes * ALETHEA PATEL MDOB:[birth year] (67 yo F)Acc No.[id number]:09/06/2023 Patient:?ALETHEA PATEL :1955???Age:67 Y???Sex:Female Address:[address] [place] [address] * true * Date:? Generated for Printi huey/Jasper/eTransmitting on:?10/20/2024 03:19 PM EDT
--- OUTSIDE RECORDS SUMMARY | 2024-10-20 15:19 | XMS_ITS ---
Author Organization 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 Name Role Phone Wilner GONSALES, [facility] Primary Care Provider Tommy Almonte [phone] Allergies Allergen (clinical drug ingredient) Drug/Non Drug [...] Risk Notes Problem Elevated liver enzymes level (443236419) Elevated liver function tests (R79.89) Active confirmed Vital Signs Temperature 98.2 degrees Fahrenheit 11/15/19 24 Blood pressure systolic 000 mm Hg 11/15/19 24 Blood pressure diastolic 00 mm Hg 024 Height 63 in 11/15/2023 Weight 159 lb 4 oz lbs 11/15/2023 BMI 28.21 kg/m2 11/15/2023 Encounters Encounter Location Date Provider Diagnosis [facility] [address] [place] [address] 11/15/2023 Tommy Roberts Elevated alkaline phosphatase level [...] her to set up a liver biopsy. Sydea was comfortable with this plan. Thank you [...] Provider Name:Tommy Roberts , 11/13/2024 01:00:00 PM, [address] [place] [address], [address], [place], [address], Progress Notes * SYEDA DOLL MDOB:1955 (67 yo F)Acc No.[id number]:11/15/2023 Progress Notes Patient:?SYEDA DOLL Provider:?Tommy Roberts MD :1955???Age:67 Y???Sex:Female D ate:11/15/2023 Address:[address] [place] [address] Pcp:Tram Darby MD Subjective: * Chief Complaints: [...] Procedure Codes:?3017F COLOR ECTAL CA SCREEN DOC [id number] TOBACCO NON-WWLSD6037 BP SCR NOT PRFRM REC REASON NOS * Preventive Medicine:? ??Counseling:?Care goal follow-up plan:?Above Normal BMI Follow-up?Giving encouragement to exercise,?BMI management provided?Yes.? ??Urinary Incontinence:?Urinary Incontinence?Assessment:?Absent,?Plan of care documented:?No, reason not specified.? * Follow Up:?1 Year * * Sign off status: Completed true * Provider:?Tommy Roberts MD Date:? 024 Generated for Zohreh arzate/Jasper/Elginsmitting on:?10/20/2024 03:19 PM EDT History and Physical Notes * [...]
--- OUTSIDE RECORDS SUMMARY | 2024-10-20 15:19 | XMS_ITS ---
Author Organization [facility] Address [address] [place] [address] Care Team Providers Care Procedures Nurse Name Role Phone Wilner GONSALES, [facility] Primary Care Provider Tommy Almonte [phone] REASON FOR VISIT Needs MRI/MRCP Problems Problem Type SNOMED Code ICD Code Onset Dates Problem Status W/U Status Risk Notes Problem Alkaline phosphatase raised (581866655) Elevated alkaline phosphatase level (R74.8) Active confirmed Problem Abnormal findings diagnostic imaging of liver and biliary tract (492968301) Abnormal ultrasound of biliary tract (R93.2) Active confirmed Problem Serum alpha-fetoprotei n level elevated (785400860) Elevated alpha fetoprotein (R77.2) Active confirmed Encounters Encounter Location Date Provider Diagnosis [facility] [address] [place] [address] 09/06/2023 Tommy Roberts Elevated alkaline phosphatase level [...] Name:Tommy Roberts , 11/13/2024 01:00:00 PM, [address] [facility], [address], [place], [address], Progress Notes * ALETHEA PATEL MDOB:[birth year] (67 yo F)Acc No.[id number]:09/06/2023 Patient:?ALETHEA PATEL :1955???Age:67 Y???Sex:Female Address:[address] [place] [address] Subjective: * Chief Complaints: * ???Needs MRI/MRCP [...] Liver mass and biliary o bstructionapproved A [id number], 09/12/23-11/11/2023 spoke marley Canela [facility] [address]. [id number] * 3.?Elevated alpha fetoprotein?LAB: BUN ?LAB: Creatinine ?Imaging: MRI ABD W&WO CONTRAST* R/O Liver mass and biliary o bstructionapproved A [id number], 09/12/23-11/11/2023 [facility] [id number]. [id number] * * Procedure Codes:? * true * Date:? Generated for Zohreh arzate/Jasper/eTransmitting on:?10/20/2024 03:19 PM EDT
--- OUTSIDE RECORDS SUMMARY | 2024-10-20 15:20 | XMS_ITS | Patient Health Record ---
Author Organization [facility] Address [address] [place] [address] Care Team Providers Care Director Outpatient Services Name Role Phone Wilner GONSALES, Asma Primary Care Provider Tommy Almonte [phone] Allergies Allergen (clinical drug ingredient) Drug/Non Drug Allergy documented on EMR Reaction Allergy Type Onset Date Status naloxegol Movantik Unknown Drug Allergy Active Results Component Value Reference Range Notes Liver Panel (Not yet reviewe d by provider) Interpretation: Performing Lab:[facility], [address] [place] [phone] Notes/Report: Bilirubin Total 0.5 0.0-1.0 mg/dL Bilirubin Direct 0.2 0.0-0.5 mg/dL Slight Hem olysis Aspartate Amino Transferase 27 5-31 U/L Slight Hemolysis Alanine Aminotransferase 19 0-31 U/L Total Protein 8.0 6.5-8.0 g/dL Albumin Level 4.0 3.5-5.0 g/dL Alkaline Phosphatase 148 39-117 U/L Other Ref Test - Misc Reviewed date:01/16/2024 07:44:59 PM Interpretation: Performing Lab:[facility], [address] [place] [phone] Notes/Report: LIVER KIDNEY MICROSOMAL AB CODE 29665 Other Ref Test - Misc SEE NOTE [...] hepatitis C infection. THIS TEST PERFORMED AT: [facility] [place] [address] [facility] [place] [address] [phone] KILN STOKER: JAH ROMERO MD, PHD Mitochondrial Antibody Reviewed date:01/16/2024 07:44:22 PM Interpretation: Performing Lab:[facility], [address] [place] [phone] Notes/Report: Mitochondrial Antibodies NEGATIVE NEGATIVE THIS TEST WAS PERFORMED AT: [facility] [address] [place] [phone] GRACE WHITMORE MD Mitochondrial Ab Titer TNP [...] 20 MG TAKE 1 CAPSULE BY MO UT EVERY DAY for 90 Not-Taking MiraLax 17 [...] Status Risk Notes Problem Colon cancer screening (242525034) Colon cancer screening (Z12.11) Active confirmed Problem 768517194 Encounter for screening for malignant neoplasm of colon (Z12.11) Active confirmed Problem 679085760 History of adenomatous polyp of colon (Z86.010) Active confirmed Problem Constipation (76805212) Constipation (K59.00) Active confirmed Problem 645381713 Abdominal bloati ng (R14.0) Active confirmed Problem Early satiety (673062924) Early satiety (R68.81) Active confirmed Problem Elevated liver enzymes level (774014545) Elevated liver function tests (R79.89) Active confirmed Problem 695667676 Elevated liver enzymes (R74.8) Active confirmed Problem Fatty liver (740699293) Fatty liver (K76.0) Active confirmed Problem 645029242 Gastroesophageal reflux disease, esophagitis presence not specified (K21.9) Active confirmed Problem Serum alpha-fetoprote in level elevated (947097169) Elevated alpha fetoprotein (R77.2) Active confirmed Problem 235022470 Abdominal pain, generalized (R10.84) Active confirmed Problem Alkaline phosphatase raised (312599774) Elevated alkaline phosphatase level (R74.8) Active confirmed Problem 66270850 Irritable bowel syndrome, unspecified type (K58.9) Active confirmed Problem 328025582 Abdominal pain, RUQ (right upper quadrant) (R10.11) Active confirmed Problem Abnormal findings diagnostic imaging of liver and biliary tract (858296685) Abnormal ultrasound of biliary tract (R93.2) Active confirmed Vital Signs Temperature 98.2 degrees Fahrenheit 11/15/2023 Blood pressure diastolic 00 mm Hg 11/15/2023 Height 63 in 11/15/2023 Blood pressure systolic 000 mm Hg 11/15/2023 Weight 159 lb 4 oz lbs 11/15/2023 BMI 28.21 kg/m2 11/15/2023 Encounters Encounter Location Date Provider Diagnosis [facility] [address] [place] [address] 11/15/2023 Tommy Roberts Elevated alkaline phosphatase level [...] Name Order Date BUN 09/06/2023 LIVER PROFILE 10/11/2020 LIVER PROFILE 07/03/2018 LIVER PROFILE 08/06/2023 LIVER PROFILE 11/15/2023 LIVER PROFILE 10/07/2019 LIVER PROFILE 04/20/2020 AMYLASE 10/07/2019 LIPASE 10/07/2019 GGT 08/06/2023 CBC [...] Name:Tommy Roberts , 11/13/2024 01:00:00 PM, [address] [facility], [address], [place], [address], Insurance Providers Payer Name Payer Address Payer Phone Subscriber Number Group Number Insured Name Patient Relationship to Insured Coverage Start Date Coverage End Date [facility] [address] [facility] [place] [phone] [id number] SYEDA DOLL Self - patient is the insured [place] [employer] [address] [place] [phone] [id number] SYEDA DOLL Self - patient is the insured Medical (General) History Medical History History ICD Code IDDM Hypertension Denies FL,CVA,Lung disease,renal disease Neg. colonoscopy in 2004 wit [...]
== END 2024-10-20 13:57 | disposition home or self-care (01) ==
LOC: HO.HMCC 12:32
PROVIDERS: PCP Internal Medicine; Visit Provider Internal Medicine
DX: R10.11 Right upper quadrant pain (principal); M54.16 Radiculopathy, lumbar region; R79.89 Other specified abnormal findings of blood chemistry

== ENCOUNTER 2024-10-20 12:32 | Outpatient (REF) | payer MEDICARE, MEDICAID, SELFPAY ==
[2024-10-20 17:54] LABS: Alanine Aminotransferase 119 U/L (0-31); Albumin Level 4.2 g/dL (3.5-5.0); Alkaline Phosphatase 336 U/L (39-117); Anion Gap 14 (12-20); Aspartate Amino Transferase 62 U/L (5-31); Bilirubin Total 0.6 mg/dL (0.0-1.0); Blood Urea Nitrogen 19 mg/dL (9-16); Calcium 10.1 mg/dL (8.4-10.2); Carbon Dioxide 29 mmol/L (22-29); Chloride 102 mmol/L (96-108); Estimated Glomerular Filt Rate 51; Glucose Random 269 mg/dL (60-115); Potassium 5.2 mmol/L (3.3-5.1); Sodium 140 mmol/L (135-145); Total Protein 8.4 g/dL (6.5-8.0)
== END 2024-10-20 12:33 | disposition home or self-care (01) ==
LOC: HO.HMGCLDS 12:32
PROVIDERS: PCP Internal Medicine; Visit Provider Internal Medicine
DX: R10.11 Right upper quadrant pain (principal); M54.16 Radiculopathy, lumbar region; R79.89 Other specified abnormal findings of blood chemistry
CPT/HCPCS: 36415; 80053; 99212

== ENCOUNTER 2024-10-28 09:33 | Outpatient (AMB) | payer MEDICARE, MEDICAID, SELFPAY ==
--- NOTE | 2024-10-28 09:37 | MHC.PC.OV ---
Vital Signs 10/28/24 09:38 Height 5 ft 4 in Weight 164 lb 4 oz BMI 28.2 BP 140/72 H Blood Pressure Location Lt brachial Position Sitting Respiration 18 Pulse 93 Pulse Source Pulse Oximeter Pulse Oximetry (%) 98 Oxygen Delivery Method Room Air Intake Visit Reasons: Pre-Op Catarac Surgery-update insurance Allergies duloxetine [From Cymbalta] Allergy (Intermediate, Verified 10/28/24 09:40) Gastrointestinal Upset gabapentin Allergy (Intermediate, Verified 10/28/24 09:40) Gastrointestinal Upset milnacipran [From Savella] Allergy (Intermediate, Verified 10/28/24 09:40) Gastrointestinal Upset naloxegol [Movantik] Allergy (Intermediate, Verified 10/28/24 09:40) Gastrointestinal Upset pregabalin [From Lyrica] Allergy (Intermediate, Verified 10/28/24 09:40) Gastrointestinal Upset Medication List - Last Reconciled 10/28/24 by Tram Darby MD albuterol sulfate 90 mcg/actuation 1 - 2 puffs PO Q4-6H PRN 30 days amlodipine 10 mg PO DAILY 90 days blood sugar diagnostic (CardinalCommerceTouch Ultra Blue Test Strip) patient to check blood sugar 3 times daily blood-glucose meter (FreeStyle Lite Meter kit) patient to check blood sugar 3 times daily blood-glucose meter (OneTouch Ultra2 Meter) Patient to check blood sugar 3 times daily famotidine 40 mg PO BEDTIME fentanyl 50 mcg/hr 1 patch transdermal Q48H 30 days insulin glargine (Lantus Solostar U-100 Insulin) 30 units (0.3 mL) subcut DAILY 90 days latanoprost 0.005% 1 drp ophthalmic (eye) BEDTIME lisinopril 40 mg PO DAILY 90 days omeprazole 20 mg PO DAILY ondansetron HCl 4 mg PO ONCE PRN 30 days oxycodone 5 mg PO DAILY PRN 30 days pen needle, diabetic qd pen needle, diabetic qd pen needle, diabetic qd sucralfate (Carafate) 1 g PO BID tizanidine 4 mg PO BEDTIME PRN 90 days Tobacco use date assessed: 10/28/24 Fall risk assessment: No Falls in past year Last assessed Fall Risk: 10/28/24 Dental Screening Dental Screen Date: 10/28/24 Did you have a dental visit in the last 12 months?: Yes Did you have a dental problem in the last 6 months where you did not have access to dental care?: No Was dental information given to patient?: Patient has dentist HPI Pre-Op Catarac Surgery-update insurance HPI Details Preop for cataract surgery Scheduled cataract surgery on the right eye on the upcoming Saturday, by Dr. Mayo - The patient is a 68 year old female presenting with pre-operative clearance and management of abdominal pain prior to cataract surgery. - History of essential hypertension with recent blood pressure readings of 140 mmHg and 168 mmHg; previous reading on October 20 was higher at 168 mmHg. - Type 2 diabetes mellitus managed with insulin; recent blood glucose level recorded as 156 mg/dL in the morning. - Reported progressive weight gain from 158 lbs. in August to 164 lbs. currently, with a previous weight of 162.8 lbs. on October 20. - Fatty liver disease with occurrences of pain and flares potentially associated with stress or dietary factors; liver enzymes showed slight improvement from September to October. Medications - Amlodipine 10 mg for hypertension - Famotidine 40 mg for gastroesophageal reflux disease - Fentanyl 50 mcg for chronic pain management - Long-acting insulin, 30 units, for Type 2 diabetes mellitus - Lisinopril 40 mg for hypertension - Omeprazole 20 mg for gastroesophageal reflux disease - Carafate (as needed) for heartburn - Dexamethasone for muscle spasms Diagnostic results - Labs: Liver enzymes showed slight improvement from September to October. Patient is stable for cataract surgery Review of Systems - General: No fever no chills - Neurological: No headaches no dizziness - Ear nose throat: No sore throat no hearing difficulty no ear pain - Cardiovascular: No syncope, no chest pain, no palpitations - Gastrointestinal: No vomiting or diarrhea - Endocrine: No polyuria polydipsia no heat intolerance - Genitourinary: No dysuria - Skin: No new complaints Physical Exam General: Cooperative, healthy appearing, comfortable, no acute distress Orientation: Patient oriented x3 Head: Normal to inspection Ears: Within normal limit visually Nose: Normal external nose present Face and sinus: Normal facial exam Eyes: Appearance normal, extraocular movement intact pupils reactive Neck: Normal visual inspection and supple Respiratory: Normal respiratory effort and able to speak in complete sentences. Clear to auscultation, no stridor Cardiovascular: S1 and S2 RRR GI: Normal to inspection. Soft to palpation and nontender Skin: Turgor normal, no acute findings Neuro: Patient oriented x3, motor sensory intact, balance intact, tandem pass Extremities: Normal to inspection [facility] Medical History Asthma Hx of irritable bowel syndrome Pain management Narcotic dependence Herniated nucleus pulposus, cervical Hypertension, essential Muscle spasm 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 Mother Stomach cancer Social History Housing: House Alcohol intake: never Patient Tobacco Use Status: Never used Tobacco e-Cigarette/Vaping Use: Never Used service: No Current occupational status: disabled Cognitive needs: No Hearing needs: No Vision needs: Yes Questionnaire Thrive Questionnaire Date Thrive assessed: 09/30/24 AUDIT C Alcohol Use Questionnaire (AUDIT-C) 1. How often do you have a drink containing alcohol?: Never 3. How often do you have six or more drinks on one occasion?: Never Total Score: 0 Score Reviewed/Action Taken: Yes SACHIN-7 AMB Questionnaire SACHIN-7 Date SACHIN - 7 assessed: 08/04/24 Source: Developed by Drs. Tommy Graham, Marnie Ford, Sebastien Vaughn and colleagues, with an educational mayito from [employer]. Physical exam (Primary Care) Vital Signs: Last Vital Signs Pulse 93 10/28/24 09:38 Resp 18 10/28/24 09:38 BP 140/72 H 10/28/24 09:38 Pulse Ox 98 10/28/24 09:38 Oxygen Delivery Method Room Air 10/28/24 09:38 BMI result Body Mass Index 28.2 Tobacco/Smoking Status: Tobacco use Status Tobacco use date assessed 10/28/24 10/28/24 09:41 Patient Tobacco Use Status Never used Tobacco 10/28/24 09:41 e-Cigarette/Vaping Use Never Used 10/28/24 09:41 Thrive Assessment: Date of Thrive Assessment Date Thrive assessed 09/30/24 10/28/24 09:41 Coding Level of Care Code Est Pt Level 4 (30408) Diagnoses Pre-op evaluation Z01.818 Other age-related cataract of both eyes H25.89 Age-related cataract type: other LFT elevation R79.89 Essential hypertension I10 Lipid disorder E78.9 Diabetes 1.5, managed as type 1 E13.9 Assessment & Plan Assessment & Plan (1) Pre-op evaluation: Code(s): Z01.818 - Encounter for other preprocedural examination Category: Medical (2) Age-related cataract of both eyes: Code(s): H25.9 - Unspecified age-related cataract Category: Medical Qualifiers: Age-related cataract type: other Qualified Code(s): H25.89 - Other age-related cataract (3) LFT elevation: Code(s): R79.89 - Other specified abnormal findings of blood chemistry Category: Medical (4) Essential hypertension: Code(s): I10 - Essential (primary) hypertension Category: Medical (5) Lipid disorder: Code(s): E78.9 - Disorder of lipoprotein metabolism, unspecified Category: Medical (6) Diabetes 1.5, managed as type 1: Comment: taking lantus insulin Code(s): E13.9 - Other specified diabetes mellitus without complications Category: Medical Plan Preop for cataract surgery Scheduled cataract surgery on the right eye on the upcoming Saturday, by Dr. Mayo - The patient is a 68 year old female presenting with pre-operative clearance and management of abdominal pain prior to cataract surgery. - History of essential hypertension with recent blood pressure readings of 140 mmHg and 168 mmHg; previous reading on October 20 was higher at 168 mmHg. - Type 2 diabetes mellitus managed with insulin; recent blood glucose level recorded as 156 mg/dL in the morning. - Reported progressive weight gain from 158 lbs. in August to 164 lbs. currently, with a previous weight of 162.8 lbs. on October 20. - Fatty liver disease with occurrences of pain and flares potentially associated with stress or dietary factors; liver enzymes showed slight improvement from September to October. Medications - Amlodipine 10 mg for hypertension - Famotidine 40 mg for gastroesophageal reflux disease - Fentanyl 50 mcg for chronic pain management - Long-acting insulin, 30 units, for Type 2 diabetes mellitus - Lisinopril 40 mg for hypertension - Omeprazole 20 mg for gastroesophageal reflux disease - Carafate (as needed) for heartburn - Dexamethasone for muscle spasms Diagnostic results - Labs: Liver enzymes showed slight improvement from September to October. Patient is stable for cataract surgery Medications: Discontinued oxycodone Partial Fill upon patient request. Discontinued Reason: Doctor's Order 5 mg PO DAILY 30 days PRN 30 tabs 0RF pain
[2024-10-28 09:38] VITALS: BP 140/72; PULSE 93; RESP 18; O2SAT 98; BMI 28.2
--- OUTSIDE RECORDS SUMMARY | 2024-10-28 10:39 | XMS_ITS ---
Author Organization [facility] Address [address] [place] [address] Care Team Providers Care Research Contracts Supervisor Name Role Phone Wilner GONSALES, Asma Primary Care Provider Tommy Almonte [phone] REASON FOR VISIT results ultrasound and labs Encounters Encounter Location Date Provider Diagnosis [facility] [address] [place] [address] 09/06/2023 Tommy Roberts Plan Of Treatment Next Appt Details Provider Name:Tommy Roberts , 11/13/2024 01:00:00 PM, [address], [address], [place], [address], Progress Notes * ALETHEA PATEL MDOB:[birth year] (67 yo F)Acc No.[id number]:09/06/2023 Patient:?ALETHEA PATEL :1955???Age:67 Y???Sex:Female Address:[address] [place] [address] * true * Date:? Generated for Printi huey/Jasper/eTransmitting on:?10/28/2024 10:39 AM EDT
--- OUTSIDE RECORDS SUMMARY | 2024-10-28 10:40 | XMS_ITS ---
Author Organization [facility] Address [address] [place] [address] Care Team Providers Care Export Packer Name Role Phone Wilner GONSALES, [facility] Primary [facility] Provider Tommy Almonte [phone] REASON FOR VISIT Needs MRI/MRCP Problems Problem Type SNOMED Code ICD Code Onset Dates Problem Status W/U Status Risk Notes Problem Alkaline phosphatase raised (644290492) Elevated alkaline phosphatase level (R74.8) Active confirmed Problem Abnormal findings diagnostic imaging of liver and biliary tract (507886768) Abnormal ultrasound of biliary tract (R93.2) Active confirmed Problem Serum alpha-fetoprotei n level elevated (203438503) Elevated alpha fetoprotein (R77.2) Active confirmed Encounters Encounter Location Date Provider Diagnosis [facility] [address] [place] [address] 09/06/2023 Tommy Roberts Elevated alkaline phosphatase level [...] Roberts , 11/13/2024 01:00:00 PM, [address] [facility], [address], [place], [address], Progress Notes * ALETHEA PATEL MDOB:[birth year] (67 yo F)Acc No.[id number]:09/06/2023 Patient:?ALETHEA PATEL :1955???Age:67 Y???Sex:Female Address:[address] [place] [address] Subjective: * Chief Complaints: * ???Needs MRI/MRCP [...] Liver mass and biliary o bstructionapproved A [id number], 09/12/23-11/11/2023 spoke marley Canela [facility] [address]. [id number] * 3.?Elevated alpha fetoprotein?LAB: BUN ?LAB: Creatinine ?Imaging: MRI ABD W&WO CONTRAST* R/O Liver mass and biliary o bstructionapproved A [id number], 09/12/23-11/11/2023 [facility] [address]. [id number] * * Procedure Codes:? * true * Date:? Generated for Zohreh arzate/Jasper/eTransmitting on:?10/28/2024 10:39 AM EDT
--- OUTSIDE RECORDS SUMMARY | 2024-10-28 10:40 | XMS_ITS ---
Author Organization [facility] Address [address] [place] [address] Care Team Providers Care Education General Manager Name Role Phone Wilner GONSALES, [facility] Primary Care Provider Tommy Almonte [phone] Allergies Allergen (clinical drug ingredient) Drug/Non Drug [...] Risk Notes Problem Elevated liver enzymes level (293136756) Elevated liver function tests (R79.89) Active confirmed Vital Signs Temperature 98.2 degrees Fahrenheit 11/15/19 24 Blood pressure systolic 000 mm Hg 11/15/19 24 Blood pressure diastolic 00 mm Hg 024 Height 63 in 11/15/2023 Weight 159 lb 4 oz lbs 11/15/2023 BMI 28.21 kg/m2 11/15/2023 Encounters Encounter Location Date Provider Diagnosis [facility] [address] [place] [address] 11/15/2023 Tommy Roberts Elevated alkaline phosphatase level [...] Provider Name:Tommy Roberts , 11/13/2024 01:00:00 PM, [address] [place] [address], [address], [place], [address], Progress Notes * SYEDA DOLL MDOB:1955 (67 yo F)Acc No.[id number]:11/15/2023 Progress Notes Patient:?SYEDA DOLL Provider:?Tommy Roberts MD :1955???Age:67 Y???Sex:Female D ate:11/15/2023 Address:[address] [place] [address] Pcp:Tram Darby MD Subjective: * Chief Complaints: [...] Procedure Codes:?3017F COLOR ECTAL CA SCREEN DOC [id number] TOBACCO NON-[id number] BP SCR NOT PRFRM REC REASON NOS * Preventive Medicine:? ??Counseling:?Care goal follow-up plan:?Above Normal BMI Follow-up?Giving encouragement to exercise,?BMI management provided?Yes.? ??Urinary Incontinence:?Urinary Incontinence?Assessment:?Absent,?Plan of care documented:?No, reason not specified.? * Follow Up:?1 Year * * Sign off status: Completed true * Provider:?Tommy Roberts MD Date:? 024 Generated for Zohreh arzate/Jasper/Elginsmitting on:?10/28/2024 10:39 AM EDT History and Physical Notes * HPI [...]
--- OUTSIDE RECORDS SUMMARY | 2024-10-28 10:40 | XMS_ITS | Patient Health Record ---
Author Organization [facility] Address [address] [place] [address] Care Team Providers Care Core Composer Feeder Name Role Phone Wilner GONSALES, Asma Primary Care Provider Tommy Almonte [phone] Allergies Allergen (clinical drug ingredient) Drug/Non Drug Allergy documented on EMR Reaction Allergy Type Onset Date Status naloxegol Movantik Unknown Drug Allergy Active Results Component Value Reference Range Notes Liver Panel (Not yet reviewe d by provider) Interpretation: Performing Lab:[facility], [address] [place] [phone] Notes/Report: Bilirubin Total 0.5 0.0-1.0 mg/dL Bilirubin Direct 0.2 0.0-0.5 mg/dL Slight Hem olysis Aspartate Amino Transferase 27 5-31 U/L Slight Hemolysis Alanine Aminotransferase 19 0-31 U/L Total Protein 8.0 6.5-8.0 g/dL Albumin Level 4.0 3.5-5.0 g/dL Alkaline Phosphatase 148 39-117 U/L Other Ref Test - Misc Reviewed date:01/16/2024 07:44:59 PM Interpretation: Performing Lab:[facility], [address] [place] [phone] Notes/Report: LIVER KIDNEY MICROSOMAL AB CODE [id number] Other Ref Test - Misc SEE NOTE [...] hepatitis C infection. THIS TEST PERFORMED AT: [employer]/[facility] [place] [address] [address] [place] [address] [phone] MULE SPINNER: JAH ROMERO MD, PHD Mitochondrial Antibody Reviewed date:01/16/2024 07:44:22 PM Interpretation: Performing Lab:[facility], [address] [place] [phone] Notes/Report: Mitochondrial Antibodies NEGATIVE NEGATIVE THIS TEST WAS PERFORMED AT: [facility] [address] [place] [phone] GRACE WHITMORE MD Mitochondrial Ab Titer TNP [...] Status Risk Notes Problem Colon cancer screening (938458119) Colon cancer screening (Z12.11) Active confirmed Problem 731078850 Encounter for screening for malignant neoplasm of colon (Z12.11) Active confirmed Problem 005632111 History of adenomatous polyp of colon (Z86.010) Active confirmed Problem Constipation (98728532) Constipation (K59.00) Active confirmed Problem 985020084 Abdominal bloati ng (R14.0) Active confirmed Problem Early satiety (748102010) Early satiety (R68.81) Active confirmed Problem Elevated liver enzymes level (853993952) Elevated liver function tests (R79.89) Active confirmed Problem 981708641 Elevated liver enzymes (R74.8) Active confirmed Problem Fatty liver (809892058) Fatty liver (K76.0) Active confirmed Problem 660867348 Gastroesophageal reflux disease, esophagitis presence not specified (K21.9) Active confirmed Problem Serum alpha-fetoprote in level elevated (077311448) Elevated alpha fetoprotein (R77.2) Active confirmed Problem 454351518 Abdominal pain, generalized (R10.84) Active confirmed Problem Alkaline phosphatase raised (409631550) Elevated alkaline phosphatase level (R74.8) Active confirmed Problem 11274685 Irritable bowel syndrome, unspecified type (K58.9) Active confirmed Problem 344558256 Abdominal pain, RUQ (right upper quadrant) (R10.11) Active confirmed Problem Abnormal findings diagnostic imaging of liver and biliary tract (252702195) Abnormal ultrasound of biliary tract (R93.2) Active confirmed Vital Signs Temperature 98.2 degrees Fahrenheit 11/15/2023 Blood pressure diastolic 00 mm Hg 11/15/2023 Height 63 in 11/15/2023 Blood pressure systolic 000 mm Hg 11/15/2023 Weight 159 lb 4 oz lbs 11/15/2023 BMI 28.21 kg/m2 11/15/2023 Encounters Encounter Location Date Provider Diagnosis [facility] [address] [place] [address] 11/15/2023 Tommy Roberts Elevated alkaline phosphatase level [...] Name:Tommy Roberts , 11/13/2024 01:00:00 PM, [address] [facility], [address], [place], [address], Insurance Providers Payer Name Payer Address Payer Phone Subscriber Number Group Number Insured Name Patient Relationship to Insured Coverage Start Date Coverage End Date [facility] [address] [facility] [place] [phone] [id number] SYEDA DOLL Self - patient is the insured [place] [employer] [address] [place] [phone] [id number] SYEDA DOLL Self - patient is the insured Medical (General) History Medical History History ICD Code IDDM Hypertension Denies [place],CVA,Lung disease,renal disease Neg. colonoscopy in 2004 wit [...]
== END 2024-10-28 09:56 | disposition home or self-care (01) ==
LOC: HO.HMCC 09:33
PROVIDERS: PCP Internal Medicine; Visit Provider Internal Medicine
DX: R79.89 Other specified abnormal findings of blood chemistry (principal); Z01.818 Encounter for other preprocedural examination; E13.9 Other specified diabetes mellitus without complications; H25.89 Other age-related cataract; I10 Essential (primary) hypertension; E78.9 Disorder of lipoprotein metabolism, unspecified

== ENCOUNTER → 2024-10-28 09:33 | Outpatient (BNVA) | payer MEDICARE, MEDICAID, SELFPAY | PROVIDERS: PCP Internal Medicine; Visit Provider Internal Medicine | DX: Z01.818 Encounter for other preprocedural examination (principal); H25.89 Other age-related cataract; R79.89 Other specified abnormal findings of blood chemistry; I10 Essential (primary) hypertension; E78.9 Disorder of lipoprotein metabolism, unspecified; E13.9 Other specified diabetes mellitus without complications | CPT/HCPCS: 99212 ==

== ENCOUNTER 2024-11-02 08:17 | Day surgery (SDC) | payer MEDICARE, MEDICAID, SELFPAY ==
--- OUTSIDE RECORDS SUMMARY | 2024-09-14 14:31 | XMS_ITS ---
Author Organization [facility] Address [address] [place] [phone] Care Team Providers Care Supervisor Wool Shearing Name Role Phone Wilner GONSALES, [facility] Primary Care Provider Tommy Almonte [phone] REASON FOR VISIT Needs MRI/MRCP Problems Problem Type SNOMED Code ICD Code Onset Dates Problem Status W/U Status Risk Notes Problem Alkaline phosphatase raised (799687824) Elevated alkaline phosphatase level (R74.8) Active confirmed Problem Abnormal findings diagnostic imaging of liver and biliary tract (377813543) Abnormal ultrasound of biliary tract (R93.2) Active confirmed Problem Serum alpha-fetoprotei n level elevated (389041400) Elevated alpha fetoprotein (R77.2) Active confirmed Encounters Encounter Location Date Provider Diagnosis [facility] [address] [place] [phone] 09/06/2023 Tommy Roberts Elevated alkaline phosphatase level R74.8 ; Abnormal ultrasound of biliary tract R93.2 and Elevated alpha fetoprotein R77.2 Assessments Encounter Date Diagnosis (ICD Code) Assessment Notes Treatment Notes Treatment Clinical Notes Section Notes 09/06/2023 Elevated alkaline phosphatase level (ICD-10 - R74.8) 09/06/2023 Abnormal ultrasound of biliary tract (ICD-10 - R93.2) 09/06/2023 Elevated alpha fetoprotein (ICD-10 - R77.2) Plan Of Treatment Pending Test Test Name Order Date BUN 09/06/2023 MRI ABD W&WO CONTRAST 09/06/2023 Creatinine 09/06/2023 Next Appt Details Provider Name:Tommy Roberts , 11/13/2024 01:00:00 PM, [address] [facility], [address], [place], [address], Progress Notes * ALETHEA PATEL MDOB:[birth year] (67 yo F)Acc No.[id number]:09/06/2023 Patient:?ALETHEA PATEL :1955???Age:67 Y???Sex:Female Address:[address] [place] [address] Subjective: * Chief Complaints: * ???Needs MRI/MRCP * Medical History:? * Surgical History:? * Hospitalization/Major Diagno stic Procedure:? * Medications:? Objective: Assessment: * Assessment: 1.?Elevated alkaline phospha tase level - R74.8 (Primary)?2.?Abnormal ultrasound of biliary tract - R93.2?3.?Elevated alpha fetoprotein - R77.2? Plan: * Treatment: * 2.?Abnormal ultrasound of biliary tract?LAB: BUN ?LAB: Creatinine ?Imaging: MRI ABD W&WO CONTRAST* R/O Liver mass and biliary o bstructionapproved A [id number], 09/12/23-11/11/2023 spoke marley [facility] [address]. [id number] * 3.?Elevated alpha fetoprotein?LAB: BUN ?LAB: Creatinine ?Imaging: MRI ABD W&WO CONTRAST* R/O Liver mass and biliary o bstructionapproved A [id number], 09/12/23-11/11/2023 [facility] [address]. [id number] * * Procedure Codes:? * true * Date:? Generated for Zohreh arzate/Jasper/eTaustinsmitting on:?09/14/2024 02:30 PM EDT
--- OUTSIDE RECORDS SUMMARY | 2024-09-14 14:31 | XMS_ITS | Patient Health Record ---
Author Organization [facility] Address [address] [place] [address] Care Team Providers Care Cash Room Clerk Name Role Phone Wilner GONSALES, Tram Primary Care Provider Tommy Almonte [facility] [phone] Allergies Allergen (clinical drug ingredient) Drug/Non Drug Allergy documented on EMR Reaction Allergy Type Onset Date Status naloxegol Movantik Unknown Drug Allergy Active Results Component Value Reference Range Notes MR abdomen wo/w con Reviewed date:12/01/2023 04:05:27 PM Interpretation: Performing Lab: Notes/Report: [address] [address] Magnetic Resonance Report Signed Patient: Alethea Doll MR#: [id number] : 1955 Acct:[id number] Age/Sex: 67 / F ADM Date: 09/25/23 Loc: HO.MRI Attending Dr: Tommy Roberts MD Ordering Physician: Tommy Roberts Date of Service: 09/25/23 Procedure(s): MR abdomen wo/w con Accession Number(s): [id number] cc: Tram Darby MD; Tommy Roberts EXAMINATION: [...] in OV> 10/02/23 1037 DD/ 0910 TD/TT: Threading Machine Feeder Automatic: [place] [address] Magnetic Resonance Report Signed Patient: Alethea Doll MR#: [id number] : 1955 Acct:[id number] Age/Sex: 67 / F ADM Date: 09/25/23 Loc: HO.MRI Attending Dr: Tommy Roberts MD Ordering Physician: Tommy Roberts Date of Service: 09/25/23 Procedure(s): MR matheus omen wo/w con Accession Number(s): [id number] cc: Tram Darby MD; Tommy Roberts EXAMINATION: MR ABDOMEN WITHOUT A ND WITH CONTRAST MR CHOLANGIOPANCREATOGRAPHY CLINICAL INFORMATION: Elevated alkaline phosphatase level, elevated alpha protein,, hepatocellular disea se found on ultrasound examination COMPARISON: Ultrasound examinati on of abdomen on 08/28/2023, MRI of abdomen on 06/27/2018 TECHNIQUE: Examination was perf ormed in a high field strength MRI scanner. Multiplanar multiseq uence MR imaging of the abdomen was performed without IV contrast enhancement. Multiphasic Axial T1-weighted fat-suppressed images of the upper abdomen were obtaine d after IV injection of 7 mL Gadavist. Coronal T1-weighted fat-supp ressed images of the abdomen were obtained following the dynami c axial series. MR cholangiopancreat ography was performed with heavily T2 weighted sequences. 3-dimensional recons truction of image data was performed. This was performed under conc urrent direct supervision and monitoring by radiologist. Maximum intensity pr ojection images were constructed. FINDINGS: MR CHOLANGIOPANCREATOGRAPHY: Gallbladder is surgi horace absent. Bilateral intra hepa tic bile ducts are mildly dilated. Common bile duct are normal in size w ithout filling defects. Pancreatic duct is n ormal in size. LIVER: The liver kristina ws no focal lesion. The calculated hepat ic fat percentage is 4.1%, compatible with normal. PANCREAS: No focal pancreatic lesion with abnormal signal can be seen. SPLEEN: Spleen is no rmal in size without focal lesion. ADRENAL: Bilateral a drenal glands are normal in shape and size. KIDNEYS: Bilateral k idneys are normal in size without focal lesion. L3-L5 bilateral laminectomies, intervertebral spinal fusion, posterior fixation with transp edicular screws and vertical bars are seen. M R/MR abdomen wo/w con IMPRESSION: 1. Unchanged Status post cholecystectomy. 2. Unchanged Mildly dilated bilateral intrahepatic bile ducts. 3. No focal hepatic mass lesion or suspicious observation could be seen. 4. Unchanged status post L3-L5 bilateral laminectomies, intervertebral spinal fusion, poste rior fixation. Dictated By: Daniela Rangel Signed By: <Christa frias signed by Daniela Rangel in OV> 10/02/23 1037 DD/ 0910 TD/TT: Threading Machine Feeder Automatic: Liver Panel (Not yet reviewe d by provider) Interpretation: Performing Lab:[facility], [address] [place] [phone] Notes/Report: Bilirubin Total 0.5 0.0-1.0 mg/dL Bilirubin Direct 0.2 0.0-0.5 mg/dL Slight Hem olysis Aspartate Amino Transferase 27 5-31 U/L Slight Hemolysis Alanine Aminotransferase 19 0-31 U/L Total Protein 8.0 6.5-8.0 g/dL Albumin Level 4.0 3.5-5.0 g/dL Alkaline Phosphatase 148 39-117 U/L Other Ref Test - Misc Reviewed date:01/16/2024 07:44:59 PM Interpretation: Performing Lab:[facility], [address] [place] [phone] Notes/Report: LIVER KIDNEY MICROSOMAL AB CODE 11841 Other Ref Test - Misc SEE NOTE LKM-1 ANTIBODY (IGG): <=20.0 U Reference Range: <=20.0 Negative 20.1-24.9 Equivocal >=25.0 Positive Anti-liver/kidne y microsomal antibodies (Anti-LKM-1) were previously tested by indirect immunofluorescen ce (IF) using rodent liver/kidney substrate. Identification of a specific antibody target as cytochrome P450 IID6 has led to the current recombinant based JAQUELINE. Antibodies to this cytochrome are present in approximately 70% of patients with autoimmune hepatitis type 2. This antibody is also present in approximately 10% of patients with hepatitis C infection. THIS TEST PERFORMED AT: [facility] [address] [place] [address] [phone] GLASS FORMING ENGINEER: JAH ROMERO MD, PHD Mitochondrial Antibody Reviewed date:01/16/2024 07:44:22 PM Interpretation: Performing Lab:[facility], [address] [place] [phone] Notes/Report: Mitochondrial Antibodies NEGATIVE NEGATIVE THIS TEST WAS PERFORMED AT: [facility] [address] [address] GRACE WHITMORE MD Mitochondrial Ab Titer TNP Reason For Referral No Information Medications Medication SIG (Take, Route, Frequency, Duration) Notes [...] 20 MG TAKE 1 CAPSULE BY MO [facility] EVERY DAY for 90 Not-Taking MiraLax 17 [...] 20 MG TAKE 1 TABLET BY DAVI EVERYDAY AT BEDTIME Orally Twice a day Active tiZANidine HCl Activ e Lisinopril 40 MG TAKE 1 TABLET BY DAVI TH EVERY DAY Orally Once a day Active Lantus 100 UNIT/ML 30 Subcutaneous QHS Active Latanoprost Active Immunizations Vaccine Route Administration Date Status Comme nts Influenza Unknown 06/20/2018 Administered Influenza Unknown 10/03/2018 Refused Influenza Unknown 04/20/2020 Refused Influenza Unknown 11/15/2023 Refused Social History Tobacco Use: Social History Observation Description Date Details (start date - stop date) Never Smoker NA - NA Tobacco Use/Smoking Question Answer Notes Patient is a nonsmoker Alcohol Screen Question Answer Notes Did you have a drink containing alcohol in the p ast year? No Points 0 Interpretation Negative Section Notes: Nonsmoker; no sig alcohol Nonsmoker; no sig alcohol Nonsmoker; no sig alcohol Nonsmoker; no sig alcohol Nonsmoker; no sig alcohol Nonsmoker; no sig alcohol Nonsmoker; no sig alcohol Nonsmoker; no sig alcohol Nonsmoker; no sig alcohol Problems Problem Type SNOMED Code ICD Code Onset Dates Problem Status W/U Status Risk Notes Problem Colon cancer screening (315756928) Colon cancer screening (Z12.11) Active confirmed Problem 577280576 Encounter for screening for malignant neoplasm of colon (Z12.11) Active confirmed Problem 659761450 History of adenomatous polyp of colon (Z86.010) Active confirmed Problem Constipation (20280515) Constipation (K59.00) Active confirmed Problem 098969442 Abdominal bloati ng (R14.0) Active confirmed Problem Early satiety (577221009) Early satiety (R68.81) Active confirmed Problem Elevated liver enzymes level (345552093) Elevated liver function tests (R79.89) Active confirmed Problem 078813305 Elevated liver enzymes (R74.8) Active confirmed Problem Fatty liver (474686442) Fatty liver (K76.0) Active confirmed Problem 384244623 Gastroesophageal reflux disease, esophagitis presence not specified (K21.9) Active confirmed Problem Serum alpha-fetoprote in level elevated (237440206) Elevated alpha fetoprotein (R77.2) Active confirmed Problem 506704869 Abdominal pain, generalized (R10.84) Active confirmed Problem Alkaline phosphatase raised (320726505) Elevated alkaline phosphatase level (R74.8) Active confirmed Problem 57633251 Irritable bowel syndrome, unspecified type (K58.9) Active confirmed Problem 759074778 Abdominal pain, RUQ (right upper quadrant) (R10.11) Active confirmed Problem Abnormal findings diagnostic imaging of liver and biliary tract (136026156) Abnormal ultrasound of biliary tract (R93.2) Active confirmed Vital Signs Temperature 98.2 degrees Fahrenheit 11/15/2023 Blood pressure diastolic 00 mm Hg 11/15/2023 Height 63 in 11/15/2023 Blood pressure systolic 000 mm Hg 11/15/2023 Weight 159 lb 4 oz lbs 11/15/2023 BMI 28.21 kg/m2 11/15/2023 Encounters Encounter Location Date Provider Diagnosis [facility] [address] [place] [address] 11/15/2023 Tommy Roberts Elevated alkaline phosphatase level R74.8 ; Elevated liver function tests R79.89 ; Irritable bowel syndrome, unspecified type K58.9 ; Gastroesophageal reflux disease, esophagitis presence not specified K21.9 and Fatty liver K76.0 Assessments Encounter Date Diagnosis (ICD Code) Assessment Notes Treatment Notes Treatment Clinical Notes Section Notes 11/15/2023 Elevated liver function tests (ICD-10 - R79.89) Overall, Alethea appears very well. We did review her laboratories and imaging studies from earlier this year. At this point, despite the significant we elevated alkaline phosphatase and GGTP, she does not appear to be having any significant liver disease or liver dysfunction based on her laboratories and imaging studies. She does not appear to be any medications that would be causing this elevation in her labs. This may very well still reflect underlying fatty liver disease given the otherwise negative workup. She has never had a liver biopsy but I advised her that based on all of her labs and imaging studies I think A. liver biopsy would be of low yield in regard to finding any other etiology of the elevated LFTs were finding any significant liver disease that might affect our treatment. Therefore, I would continue to hold off on a liver biopsy for at least the time being. I shall check a repeat liver profile along with a mitochondrial antibody and liver kidney microsomal antibody and further evaluate for the underlying possibility of primary biliary cholangitis. If these do remain negative then another consideration in regard to the elevated alkaline phosphatase and GGTP could be that of mitochondrial antibody-negativ e PBC. We did discuss the negative Cologuard test from this past September. Given her inability to undergo colonoscopy due to being unable to take the prep, I advised her that she should do a Cologuard test every couple of years for screening purposes. I did advise to continue her current bowel regimen and antispasmodic for the underlying irritable bowel syndrome and constipation. If things remain stable I will plan to see Alethea in one year for a followup visit. I did advise her that if we see her laboratories increase or the antibody testing is positive for suspected primary biliary cholangitis, I would then be in touch with her to set up a liver biopsy. Alethea was comfortable with this plan. Thank you again for allowing me to participate in Alethea's c are. I shall continue to keep you advised of her progress. 11/15/2023 Elevated alkaline phosphatase level (ICD-10 - R74.8) Overall, Alethea appears very well. We did review her laboratories and imaging studies from earlier this year. At this point, despite the significant we elevated alkaline phosphatase and GGTP, she does not appear to be having any significant liver disease or liver dysfunction based on her laboratories and imaging studies. She does not appear to be any medications that would be causing this elevation in her labs. This may very well still reflect underlying fatty liver disease given the otherwise negative workup. She has never had a liver biopsy but I advised her that based on all of her labs and imaging studies I think A. liver biopsy would be of low yield in regard to finding any other etiology of the elevated LFTs were finding any significant liver disease that might affect our treatment. Therefore, I would continue to hold off on a liver biopsy for at least the time being. I shall check a repeat liver profile along with a mitochondrial antibody and liver kidney microsomal antibody and further evaluate for the underlying possibility of primary biliary cholangitis. If these do remain negative then another consideration in regard to the elevated alkaline phosphatase and GGTP could be that of mitochondrial antibody-negativ e PBC. We did discuss the negative Cologuard test from this past September. Given her inability to undergo colonoscopy due to being unable to take the prep, I advised her that she should do a Cologuard test every couple of years for screening purposes. I did advise to continue her current bowel regimen and antispasmodic for the underlying irritable bowel syndrome and constipation. If things remain stable I will plan to see Alethea in one year for a followup visit. I did advise her that if we see her laboratories increase or the antibody testing is positive for suspected primary biliary cholangitis, I would then be in touch with her to set up a liver biopsy. Alethea was comfortable with this plan. Thank you again for allowing me to participate in Alethea's c are. I shall continue to keep you advised of her progress. 11/15/2023 Irritable bowel syndrome, unspecified type (ICD-10 - K58.9) Overall, Alethea appears very well. We did review her laboratories and imaging studies from earlier this year. At this point, despite the significant we elevated alkaline phosphatase and GGTP, she does not appear to be having any significant liver disease or liver dysfunction based on her laboratories and imaging studies. She does not appear to be any medications that would be causing this elevation in her labs. This may very well still reflect underlying fatty liver disease given the otherwise negative workup. She has never had a liver biopsy but I advised her that based on all of her labs and imaging studies I think A. liver biopsy would be of low yield in regard to finding any other etiology of the elevated LFTs were finding any significant liver disease that might affect our treatment. Therefore, I would continue to hold off on a liver biopsy for at least the time being. I shall check a repeat liver profile along with a mitochondrial antibody and liver kidney microsomal antibody and further evaluate for the underlying possibility of primary biliary cholangitis. If these do remain negative then another consideration in regard to the elevated alkaline phosphatase and GGTP could be that of mitochondrial antibody-negativ e PBC. We did discuss the negative Cologuard test from this past September. Given her inability to undergo colonoscopy due to being unable to take the prep, I advised her that she should do a Cologuard test every couple of years for screening purposes. I did advise to continue her current bowel regimen and antispasmodic for the underlying irritable bowel syndrome and constipation. If things remain stable I will plan to see Alethea in one year for a followup visit. I did advise her that if we see her laboratories increase or the antibody testing is positive for suspected primary biliary cholangitis, I would then be in touch with her to set up a liver biopsy. Alethea was comfortable with this plan. Thank you again for allowing me to participate in Alethea's c are. I shall continue to keep you advised of her progress. 11/15/2023 Gastroesophageal reflux disease, esophagitis presence not specified (ICD-10 - K21.9) Overall, Alethea appears very well. We did review her laboratories and imaging studies from earlier this year. At this point, despite the significant we elevated alkaline phosphatase and GGTP, she does not appear to be having any significant liver disease or liver dysfunction based on her laboratories and imaging studies. She does not appear to be any medications that would be causing this elevation in her labs. This may very well still reflect underlying fatty liver disease given the otherwise negative workup. She has never had a liver biopsy but I advised her that based on all of her labs and imaging studies I think A. liver biopsy would be of low yield in regard to finding any other etiology of the elevated LFTs were finding any significant liver disease that might affect our treatment. Therefore, I would continue to hold off on a liver biopsy for at least the time being. I shall check a repeat liver profile along with a mitochondrial antibody and liver kidney microsomal antibody and further evaluate for the underlying possibility of primary biliary cholangitis. If these do remain negative then another consideration in regard to the elevated alkaline phosphatase and GGTP could be that of mitochondrial antibody-negativ e PBC. We did discuss the negative Cologuard test from this past September. Given her inability to undergo colonoscopy due to being unable to take the prep, I advised her that she should do a Cologuard test every couple of years for screening purposes. I did advise to continue her current bowel regimen and antispasmodic for the underlying irritable bowel syndrome and constipation. If things remain stable I will plan to see Alethea in one year for a followup visit. I did advise her that if we see her laboratories increase or the antibody testing is positive for suspected primary biliary cholangitis, I would then be in touch with her to set up a liver biopsy. Alethea was comfortable with this plan. Thank you again for allowing me to participate in Alethea's c are. I shall continue to keep you advised of her progress. 11/15/2023 Fatty liver (ICD-10 - K76.0) Overall, Alethea appears very well. We did review her laboratories and imaging studies from earlier this year. At this point, despite the significant we elevated alkaline phosphatase and GGTP, she does not appear to be having any significant liver disease or liver dysfunction based on her laboratories and imaging studies. She does not appear to be any medications that would be causing this elevation in her labs. This may very well still reflect underlying fatty liver disease given the otherwise negative workup. She has never had a liver biopsy but I advised her that based on all of her labs and imaging studies I think A. liver biopsy would be of low yield in regard to finding any other etiology of the elevated LFTs were finding any significant liver disease that might affect our treatment. Therefore, I would continue to hold off on a liver biopsy for at least the time being. I shall check a repeat liver profile along with a mitochondrial antibody and liver kidney microsomal antibody and further evaluate for the underlying possibility of primary biliary cholangitis. If these do remain negative then another consideration in regard to the elevated alkaline phosphatase and GGTP could be that of mitochondrial antibody-negativ e PBC. We did discuss the negative Cologuard test from this past September. Given her inability to undergo colonoscopy due to being unable to take the prep, I advised her that she should do a Cologuard test every couple of years for screening purposes. I did advise to continue her current bowel regimen and antispasmodic for the underlying irritable bowel syndrome and constipation. If things remain stable I will plan to see Alethea in one year for a followup visit. I did advise her that if we see her laboratories increase or the antibody testing is positive for suspected primary biliary cholangitis, I would then be in touch with her to set up a liver biopsy. Alethea was comfortable with this plan. Thank you again for allowing me to participate in Alethea's c are. I shall continue to keep you advised of her progress. Plan Of Treatment Pending Test Test Name Order Date BUN 09/06/2023 LIVER PROFILE 11/15/2023 LIVER PROFILE 10/07/2019 LIVER PROFILE 04/20/2020 LIVER PROFILE 10/11/2020 LIVER PROFILE 07/03/2018 LIVER PROFILE 08/06/2023 AMYLASE 10/07/2019 LIPASE 10/07/2019 GGT 08/06/2023 CBC [...] Name:Tommy Roberts , 11/13/2024 01:00:00 PM, [address] [facility], [address], [place], [address], Insurance Providers Payer Name Payer Address Payer Phone Subscriber Number Group Number Insured Name Patient Relationship to Insured Coverage Start Date Coverage End Date [employer] [address] [place] [phone] [id number] ALETHEA DOLL Self - patient is the insured MEDICAID OF [facility] [address] [place] [address] [id number] ALETHEA DOLL Self - patient is the insured Medical (General) History Medical History History ICD Code IDDM Hypertension Denies RI,CVA,Lung disease,renal disease Neg. colonoscopy in 2004 wit h me and a negative colonoscopy [place] [address] Nguyen EGD [place] [address] Nguyen- -mild gastritis with biopsies negative for H. pylori. Elevated LFTs in 2017--neg. w/u, includi ng MRCP-- fatty liver Back [...]
--- OUTSIDE RECORDS SUMMARY | 2024-09-14 14:31 | XMS_ITS ---
Author Organization [facility] Address [address] [place] [address] Care Team Providers Care Eight Arm Operator Name Role Phone Wilner GONSALES, [facility] Primary Care Provider Tommy Almonte [phone] Allergies Allergen (clinical drug ingredient) Drug/Non Drug Allergy documented on EMR Reaction Allergy Type Onset Date Status naloxegol Movantik Unknown Drug Allergy Active REASON FOR VISIT Patient presents today for elevated liver enzymes Medications Medication SIG (Take, Route, Frequency, Duration) Notes Start Date End Date Status amLODIPine Besylate 10 MG 1 tablet Orally Once a day Active fentaNYL 50 MCG/HR (Schedule II Drug) A PPLY 1 PATCH TO THE SKIN AND CHANGE EVERY OTHER DAY Transdermal for 30 Active Famotidine 20 MG TAKE 1 TABLET BY DVAI TH EVERYDAY AT BEDTIME Orally Twice a [...] Needle Mini U/F Active Ibuprofen PRN Active Immunizations Vaccine Route Administration Date Status Comme nts Influenza Unknown 11/15/2023 Refused Social History Tobacco Use: Social History Observation Description Date Details (start date - stop date) Never Smoker NA - NA Tobacco Use/Smoking Question Answer Notes Patient is a nonsmoker Alcohol Screen Question Answer Notes Did you have a drink containing alcohol in the p ast year? No Points 0 Interpretation Negative Section Notes: Nonsmoker; no sig alcohol Problems Problem Type SNOMED Code ICD Code Onset Dates Problem Status W/U Status Risk Notes Problem Elevated liver enzymes level (839742922) Elevated liver function tests (R79.89) Active confirmed Vital Signs Temperature 98.2 degrees Fahrenheit 11/15/19 24 Blood pressure systolic 000 mm Hg 11/15/19 24 Blood pressure diastolic 00 mm Hg 024 Height 63 in 11/15/2023 Weight 159 lb 4 oz lbs 11/15/2023 BMI 28.21 kg/m2 11/15/2023 Encounters Encounter Location Date Provider Diagnosis [facility] [address] [place] [address] 11/15/2023 Tommy Roberts Elevated alkaline phosphatase level R74.8 ; Elevated liver function tests R79.89 ; Irritable bowel syndrome, unspecified type K58.9 ; Gastroesophageal reflux disease, esophagitis presence not specified K21.9 and Fatty liver K76.0 Assessments Encounter Date Diagnosis (ICD Code) Assessment Notes Treatment Notes Treatment Clinical Notes Section Notes 11/15/2023 Elevated alkaline phosphatase level (ICD-10 - R74.8) Overall, Syeda appears very well. We did review her [...] remain stable I will plan to see Syeda in one year for a followup visit. I did advise her that if we see her laboratories increase or the antibody testing is positive for suspected primary biliary cholangitis, I would then be in touch with her to set up a liver biopsy. Syeda was comfortable with this plan. Thank you again for allowing me to participate in Syeda's c are. I shall continue to keep you advised of her progress. 11/15/2023 Elevated liver function tests (ICD-10 - R79.89) Overall, Syeda appears very well. We did review her [...] remain stable I will plan to see Syeda in one year for a followup visit. I did advise her that if we see her laboratories increase or the antibody testing is positive for suspected primary biliary cholangitis, I would then be in touch with her to set up a liver biopsy. Syeda was comfortable with this plan. Thank you again for allowing me to participate in Syeda's c are. I shall continue to keep you advised of her progress. 11/15/2023 Irritable bowel syndrome, unspecified type (ICD-10 - K58.9) Overall, Syeda appears very well. We did review her [...] remain stable I will plan to see Syeda in one year for a followup visit. I did advise her that if we see her laboratories increase or the antibody testing is positive for suspected primary biliary cholangitis, I would then be in touch with her to set up a liver biopsy. Syeda was comfortable with this plan. Thank you again for allowing me to participate in Syeda's c are. I shall continue to keep you advised of her progress. 11/15/2023 Gastroesophageal reflux disease, esophagitis presence not specified (ICD-10 - K21.9) Overall, Syeda appears very well. We did review her [...] remain stable I will plan to see Syeda in one year for a followup visit. I did advise her that if we see her laboratories increase or the antibody testing is positive for suspected primary biliary cholangitis, I would then be in touch with her to set up a liver biopsy. Syeda was comfortable with this plan. Thank you again for allowing me to participate in Syeda's c are. I shall continue to keep you advised of her progress. 11/15/2023 Fatty liver (ICD-10 - K76.0) Overall, Syeda appears very well. We did review her [...] remain stable I will plan to see Syeda in one year for a followup visit. I did advise her that if we see her laboratories increase or the antibody testing is positive for suspected primary biliary cholangitis, I would then be in touch with her to set up a liver biopsy. Syeda was comfortable with this plan. Thank you again for allowing me to participate in Syeda's c are. I shall continue to keep you advised of her progress. Plan Of Treatment Pending Test Test Name Order Date LIVER PROFILE 11/15/2023 Mitochondrial Antibody 11/15/2023 Liver Kidney Microsomal Ab 11/15/2023 Next Appt Details Follow Up: 1 Year, Reason: Provider Name:Tommy Roberts , 11/13/2024 01:00:00 PM, [address] [place] [address], [address], [place], [address], Progress Notes * SYEDA DOLL MDOB:1955 (67 yo F)Acc No.[id number]:11/15/2023 Progress Notes Patient:?SYEDA DOLL Provider:?Tommy Roberts MD :1955???Age:67 Y???Sex:Female D ate:11/15/2023 Address:[address] [place] [address] Pcp:Tram Darby MD Subjective: * Chief Complaints: * ???Patient presents today fo r elevated liver enzymes * HPI: ???incontinence:? I saw Syeda in followup today in guarded to her chronically elevated alkaline phosphatase with presumed fatty liver, gastroesophageal reflux, and irritable bowel syndrome with constipation. ?I last saw Syeda in July. Subsequent to that visit she did have laboratories with a liver profile showing an alkaline phosphatase of 419 and a GGTP very elevated at 1,650. The remainder of the liver profile showed some slight elevations with an AST of 34 and ALT 64, but with a normal total bilirubin and normal albumin. Her alpha-fetoprotein level was 6.7 and her liver fibrosis score was only at the level of F1. Her abdominal ultrasound described some minimal changes of fatty liver, but otherwise without any changes of cirrhosis, liver mass, biliary disease, splenomegaly, nor ascites. I did opt to have her undergo a MRI of the abdomen along with a MRCP given the significantly elevated alkaline phosphatase. This also did not show any sign of biliary disease, liver mass, nor any other significant abnormalities. ?She presently feels well. She enjoys a good appetite, without any significant heartburn or dysphagia. She is no longer using omeprazole. She denies any increasing abdominal girth, edema, pruritus, nor fatigue. She reports that her bowel movements have remained fairly stable on a regimen of fiber and stool softeners. She denies any hematochezia nor melena. She did do a negative Cologuard test this past September. ?She still uses dicyclomine p.r.n. basis for abdominal discomfort with fairly good relief in regard to her irritable bowel syndrome with associated abdominal cramps and bloating. She denies any jaundice, fevers, weight loss, nor other abdominal pains. ?In regard to the significantly elevated alkaline phosphatase and GGTP, she did have a complete liver workup back in 2018, including mitochondrial antibodies and other autoimmune studies, metabolic studies with iron and alpha-1 antitrypsin levels, and viral serologies. She has never had a liver biopsy. * ROS:?General/Constitutional:?Change in appetite?denies.?Chills?denies.?Fatigue?denies.?Ophthalmologic:?Comments?all negative.?ENT:?Comments?all negative.?Respiratory:?hemoptysis?denies.?Cough?denies.?Cardiovascular:?Chest pain?denies.?Orthopnea?denies.?Gastrointestinal:?Comments?See HPI for details.?Genitourinary:?Hematuria?denies.?Dysuria?denies.?Musculoskeletal:?Painful joints?Back pain.?Weakness?denies.?Skin:?Itching?denies.?Rash?denies.?Neurologic:?Headache?denies.?Seizures?denies.?Psychiatric:?Comments?all negative.? * Medical History:? * Surgical History:?Cholecyste ctomy > 20 years ago MELONIE Lower back spinal fusion Cervical disc surgery--Dr. Heath 07/2020 * Hospitalization/Major Diagno stic Procedure:?No Hospitalization History. * Family History:?Father: dece ased.?Mother: , afib, diagnosed with HTN (hypertension).?Siblings: alive, brother hep c.? Denies family history of colon cancer. No family history of liver cancer. Mother had stomach cancer and her brother had bladder cancer. * Social History:?Tobacco Use:?Tobacco Use/Smoking?Patient is a?nonsmoker.?Drugs/Alcohol:?Alcohol Screen?Did you have a drink containing alcohol in the past year??No,?Points?0,?Interpretation?Negative.?Miscellaneous:?Marital status: . 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 ???Nonsmoker; no sig alcohol. * Medications:?TakingamLODIPin e Besylate 10 MG Tablet 1 tablet Orally Once a dayfentaNYL 50 MCG/HR Patch 72 Hour (Schedule II Drug) APPLY 1 PATCH TO THE SKIN AND CHANGE EVERY OTHER DAY Transdermal Lisinopril 40 MG Tablet TAKE 1 TABLET BY MOUTH EVERY DAY Orally Once a dayLantus 100 UNIT/ML Solution 30 Subcutaneous QHSFamotidine 20 MG Tablet TAKE 1 TABLET BY MOUTH EVERYDAY AT BEDTIME Orally Twice a daytiZANidine HCl BD Pen Needle Mini U/F Ibuprofen , Notes: PRNLatanoprost MiraLax 17 GM/SCOOP Powder 1 capful from a 238gm bottle to the measured line in 8 ounces of water Orally Twice a dayMetamucil 0.52 GM Capsule 2 capsules with 8 ounces of liquid Orally Once or twice a day for constipationDicyclomine HCl 10 MG Capsule TAKE 1-2 CAPS EVERY 6 HOURS NEEDED ABDOMINAL CRAMPS/BLOATING/DISCOMFORT Taking amLODIPine Besylate 10 MG Tablet 1 tablet Orally Once a dayTaking fentaNYL 50 MCG/HR Patch 72 Hour (Schedule II Drug) APPLY 1 PATCH TO THE SKIN AND CHANGE EVERY OTHER DAY Transdermal Taking Lisinopril 40 MG Tablet TAKE 1 TABLET BY MOUTH EVERY DAY Orally Once a dayTaking Lantus 100 UNIT/ML Solution 30 Subcutaneous QHSTaking Famotidine 20 MG Tablet TAKE 1 TABLET BY MOUTH EVERYDAY AT BEDTIME Orally Twice a dayTaking tiZANidine HCl Taking BD Pen Needle Mini U/F Taking Ibuprofen , Notes: PRNTaking Latanoprost Taking MiraLax 17 GM/SCOOP Powder 1 capful from a 238gm bottle to the measured line in 8 ounces of water Orally Twice a dayTaking Metamucil 0.52 GM Capsule 2 capsules with 8 ounces of liquid Orally Once or twice a day for constipationTaking Dicyclomine HCl 10 MG Capsule TAKE 1-2 CAPS EVERY 6 HOURS NEEDED ABDOMINAL CRAMPS/BLOATING/DISCOMFORT Not-Taking/PRNOmeprazole 20 MG Capsule Delayed Release TAKE 1 CAPSULE BY MOUTH EVERY DAY Medication List reviewed and reconciled with the patientNot-Taking/PRN Omeprazole 20 MG Capsule Delayed Release TAKE 1 CAPSULE BY MOUTH EVERY DAY Medication List reviewed and reconciled with the patient * Allergies:?Movantikyes[Aller gies Verified] Objective: * Vitals:?Wt: 159 lb 4 oz, Ht: 63 in, BMI:28.21 Index, BP: 000/00 mm Hg, Temp: 98.2. * Examination: ???General Examination: ?GENERAL APPEARANCE:?pleasant, well nourished, well developed, in no acute distress.?EYES:?sclera non-icteric.?ORAL CAVITY:?mucosa moist.?NECK/THYROID:?no cervical lymphadenopathy, neck supple.?SKIN:?nonjaundiced, no spider angiomata.?HEART:?S1, S2 normal.?LUNGS:?clear to auscultation bilaterally.?ABDOMEN:?normal bowel sounds, no guarding or rigidity, no guarding or rigidity, no masses palpable, soft, nontender, nondistended.?EXTREMITIES:?no edema.?NEUROLOGIC:?alert and oriented.? Assessment: * Assessment: 1.?Elevated alkaline phospha tase level - R74.8 (Primary)?2.?Elevated liver function tests - R79.89?3.?Irritable bowel syndrome, unspecified type - K58.9?4.?Gastroesophageal reflux disease, esophagitis presence not specified - K21.9?5.?Fatty liver - K76.0? Overall, Syeda appears very we ll. We did review her laboratories and imaging [...] and GGTP could be that of mitochondrial antibody-negative PBC. We did discuss the negative Cologuard [...] remain stable I will plan to see Syeda in one year for a followup visit. I did advise her that if we see her laboratories increase or the antibody testing is positive for suspected primary biliary cholangitis, I would then be in touch with her to set up a liver biopsy. Syeda was comfortable with this plan. Thank you again for allowing me to participate in Syeda's c are. I shall continue to keep you advised of her progress. Plan: * Treatment: 2.?Elevated liver function t ests?LAB: LIVER PROFILE ?LAB: Mitochondrial Antibody ?LAB: Liver Kidney Microsomal Ab * Immunizations:? Influenza (Not administered - Refused: Patient decision) * Procedure Codes:?3017F COLOR ECTAL CA SCREEN DOC [id number] TOBACCO [id number] BP SCR NOT PRFRM REC REASON NOS * Preventive Medicine:? ??Counseling:?Care goal follow-up plan:?Above Normal BMI Follow-up?Giving encouragement to exercise,?BMI management provided?Yes.? ??Urinary Incontinence:?Urinary Incontinence?Assessment:?Absent,?Plan of care documented:?No, reason not specified.? * Follow Up:?1 Year * * Sign off status: Completed true * Provider:?Tommy Roberts MD Date:? 024 Generated for Zohreh arzate/Jasper/Elginsmitting on:?09/14/2024 02:30 PM EDT History and Physical Notes * HPI (History of Present Illness) Category Sub-Category Detail Notes Category Not es incontinence I saw Syeda in followup today in guarded to her chronically elevated alkaline phosphatase with presumed fatty liver, gastroesophageal reflux, and irritable bowel syndrome with constipation. I last saw Syeda in July. Subsequent to that visit she did have laboratories with a liver profile showing an alkaline phosphatase of 419 and a GGTP very elevated at 1,650. The remainder of the liver profile showed some slight elevations with an AST of 34 and ALT 64, but with a normal total bilirubin and normal albumin. Her alpha-fetoprotein level was 6.7 and her liver fibrosis score was only at the level of F1. Her abdominal ultrasound described some minimal changes of fatty liver, but otherwise without any changes of cirrhosis, liver mass, biliary disease, splenomegaly, nor ascites. I did opt to have her undergo a MRI of the abdomen along with a MRCP given the significantly elevated alkaline phosphatase. This also did not show any sign of biliary disease, liver mass, nor any other significant abnormalities. She presently feels well. She enjoys a good appetite, without any significant heartburn or dysphagia. She is no longer using omeprazole. She denies any increasing abdominal girth, edema, pruritus, nor fatigue. She reports that her bowel movements have remained fairly stable on a regimen of fiber and stool softeners. She denies any hematochezia nor melena. She did do a negative Cologuard test this past September. She still uses dicyclomine p.r.n. basis for abdominal discomfort with fairly good relief in regard to her irritable bowel syndrome with associated abdominal cramps and bloating. She denies any jaundice, fevers, weight loss, nor other abdominal pains. In regard to the significantly elevated alkaline phosphatase and GGTP, she did have a complete liver workup back in 2018, including mitochondrial antibodies and other autoimmune studies, metabolic studies with iron and alpha-1 antitrypsin levels, and viral serologies. She has never had a liver biopsy. Examination Category Sub-Category Detail Notes Category Not es General Examination GENERAL APPEARANCE: pleasant , well [...]
--- OUTSIDE RECORDS SUMMARY | 2024-09-14 14:31 | XMS_ITS ---
Author Organization [facility] Address [address] [place] [address] Care Team Providers Care Va Underwriter Name Role Phone Wilner GONSALES, Asma Primary Care Provider Tommy Almonte [phone] REASON FOR VISIT results ultrasound and labs Encounters Encounter Location Date Provider Diagnosis [facility] [address] [place] [address] 09/06/2023 Tommy Roberts Plan Of Treatment Next Appt Details Provider Name:Tommy Roberts , 11/13/2024 01:00:00 PM, [address], [address], [place], [address], Progress Notes * ALETHEA PATEL MDOB:[birth year] (67 yo F)Acc No.[id number]:09/06/2023 Patient:?ALETHEA PATEL :1955???Age:67 Y???Sex:Female Address:[address] [place] [id number] * true * Date:? Generated for Printi huey/Jasper/eTransmitting on:?09/14/2024 02:30 PM EDT
[2024-10-28 13:32] VITALS: BMI 27.3
[2024-10-29 08:13] VITALS: BMI 28.1
--- NOTE | 2024-10-29 14:51 | HO.ANESPROP2 ---
Documented by User: Anne Esquivel NP 10/29/24 14:53 HPI - Anesthesia Eval Consult details Narrative: 68yo F for Right Cataract Extraction IOL Insertion No previous cataract on record Fentanyl patch PMFSH Active Problems Active Problems: All Active Problems Age-related cataract of both eyes (Acute) LFT elevation (Acute) Right lumbar radiculitis (Acute) RUQ abdominal pain (Acute) Palpitations (Acute) Gingivitis (Acute) Epigastric pain (Acute) Chest discomfort (Acute) Cervical radiculitis (Acute) Arthrosis (Acute) Foot pain, left (Acute) Epigastric burning sensation (Acute) Post-COVID syndrome (Acute) Migraine headache (Acute) Foul smelling urine (Acute) Medication management contract signed (Acute) Elevated blood pressure reading (Acute) Pre-op evaluation (Acute) Right otitis media (Acute) 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 (Acute) Acute sinusitis (Acute) Sacroiliitis (Acute) Hip pain, right (Acute) Radiculitis, lumbosacral (Acute) HNP (herniated nucleus pulposus), lumbar (Acute) Spinal stenosis, lumbar (Acute) Lipid disorder (Acute) Essential hypertension (Acute) Other and unspecified hyperlipidemia (Acute) Abdominal pain (Acute) Hospital discharge follow-up (Acute) Shortness of breath (Acute) Open fracture of proximal phalanx of right little finger (Acute) Injury of digital nerve of right little finger (Acute) Pain management (Acute) Narcotic dependence (Acute) Herniated nucleus pulposus, cervical (Acute) Hypertension, essential (Acute) Muscle spasm (Acute) Failed back syndrome (Acute) DJD (degenerative joint disease) of thoracic spine (Acute) Radiculitis of right cervical region (Acute) Chronic GERD (Acute) LFTs abnormal (Acute) Diabetes 1.5, managed as type 1 (Acute) Past Medical History Medical History Asthma Hx of irritable bowel syndrome Pain management Narcotic dependence Herniated nucleus pulposus, cervical Hypertension, essential Muscle spasm Failed back syndrome DJD (degenerative joint disease) of thoracic spine Radiculitis of right cervical region Chronic GERD LFTs abnormal Diabetes 1.5, managed as type 1 Family History Family History Father No problems noted. Mother Stomach cancer Surgical History Surgical History History of cervical spinal surgery History of lumbar surgery History of esophagogastroduodenoscopy History of colonoscopy History of esophagogastroduodenoscopy History of hysterectomy with oophorectomy Hx of cholecystectomy History of Problems with Anesthesia: No Social History Social History Housing: House Alcohol intake: never Patient Tobacco Use Status: Never used Tobacco e-Cigarette/Vaping Use: Never Used Use of substances other than those prescribed or required for medical reasons: No Christianity Healthcare Practices: Baptist Advance Directives Information Provided: Yes (as above noted) Advance Directives on File: No FDLMP: n/a service: No Current occupational status: disabled Cognitive needs: No Hearing needs: No Vision needs: Yes Meds Allergies Allergy/AdvReac Type Severity Reaction Status Date / Time duloxetine [From Cymbalta] Allergy Intermediate Gastrointestinal Verified 10/28/24 09:40 Upset gabapentin Allergy Intermediate Gastrointestinal Verified 10/28/24 09:40 Upset milnacipran [From Savella] Allergy Intermediate Gastrointestinal Verified 10/28/24 09:40 Upset naloxegol [Movantik] Allergy Intermediate Gastrointestinal Verified 10/28/24 09:40 Upset pregabalin [From Lyrica] Allergy Intermediate Gastrointestinal Verified 10/28/24 09:40 Upset Home Medications ?Medication ?Instructions ?Recorded ?Confirmed ?Last Taken ?Type latanoprost 0.005 % eye drops 1 drp ophthalmic (eye) BEDTIME 04/29/20 10/29/24 11/01/24 History Exam Height,Weight and Vital Signs: Height 5 ft 4 in Weight 74.389 kg Assessment and Plan Assessment Anesthesia Assessment: Chart Reviewed Final Anesthetic Review History of Problems with Anesthesia: No Documented by User: Mesha Brooke MD 11/02/24 09:20 [facility] Past Medical History Medical History Asthma Hx of irritable bowel syndrome Pain management Narcotic dependence Herniated nucleus pulposus, cervical Hypertension, essential Muscle spasm Failed back syndrome DJD (degenerative joint disease) of thoracic spine Radiculitis of right cervical region Chronic GERD LFTs abnormal Diabetes 1.5, managed as type 1 Family History Family History Father No problems noted. Mother Stomach cancer Family history of problems with anesthesia: No Surgical History Surgical History History of cervical spinal surgery History of lumbar surgery History of esophagogastroduodenoscopy History of colonoscopy History of esophagogastroduodenoscopy History of hysterectomy with oophorectomy Hx of cholecystectomy Social History Social History Housing: House Alcohol intake: never Patient Tobacco Use Status: Never used Tobacco e-Cigarette/Vaping Use: Never Used Use of substances other than those prescribed or required for medical reasons: No Christianity Healthcare Practices: Baptist Advance Directives Information Provided: Yes (as above noted) Advance Directives on File: No FDLMP: n/a service: No Current occupational status: disabled Cognitive needs: No Hearing needs: No Vision needs: Yes Meds Allergies Allergy/AdvReac Type Severity Reaction Status Date / Time duloxetine [From Cymbalta] Allergy Intermediate Gastrointestinal Verified 10/28/24 09:40 Upset gabapentin Allergy Intermediate Gastrointestinal Verified 10/28/24 09:40 Upset milnacipran [From Savella] Allergy Intermediate Gastrointestinal Verified 10/28/24 09:40 Upset naloxegol [Movantik] Allergy Intermediate Gastrointestinal Verified 10/28/24 09:40 Upset pregabalin [From Lyrica] Allergy Intermediate Gastrointestinal Verified 10/28/24 09:40 Upset Home Medications ?Medication ?Instructions ?Recorded ?Confirmed ?Last Taken ?Type latanoprost 0.005 % eye drops 1 drp ophthalmic (eye) BEDTIME 04/29/20 10/29/24 11/01/24 History Exam Airway Mallampati Class: III TM Dist: >3cm Neck ROM: Full Heart: rrr Lungs: cta Assessment and Plan Final Anesthetic Review Family History of Problems with Anesthesia: No NPO: Yes ASA Class: II Final Preanesthetic Review: No Changes in Pt Med Stat, Meds/Allgs Chart Reviewed and Consent Obtained/Reviewed Patient Risk: Low Procedure Risk: Low Anesthetic Plan Anesthetic Plan: MAC: Disposition: Standard PACU
[2024-11-02 09:01] VITALS: BP 142/70; PULSE 100; RESP 16; TEMP 37.1; O2SAT 97
[2024-11-02] MEDS: Tetracaine HCl/PF 0.5% Oph Sol 4 ML DROPS 1 DROP EYE-RIGHT (09:04)
[2024-11-02] MEDS: Lactated Ringers 500 ML 50 ML IV (09:05)
[2024-11-02] MEDS: Cyclopentolate 1 % Ophth Sol 2 ML DRPBTL 1 DROP EYE-RIGHT ×3 (09:05→09:16)
[2024-11-02] MEDS: Tropicamide 1 % Ophth Sol 3 ML BTL 1 DROP EYE-RIGHT ×3 (09:08→09:17)
[2024-11-02] MEDS: Ketorolac Tromethamine 0.5% Op 5 ML DROPS 1 DROP EYE-RIGHT ×3 (09:09→09:18)
[2024-11-02] MEDS: Phenylephrine HCL 2.5% Oph SoL 2 ML BOTTLE 1 DROP EYE-RIGHT ×3 (09:11→09:19)
[2024-11-02 09:19] LABS: Glucose, Whole Blood 119 mg/dL (60-115)
--- NOTE | 2024-11-02 10:09 | P.PCNO_ITS ---
Ophthalmology Procedure Procedure Date of Service: 11/02/24 Ophthalmology Viscoelastic: Healon Duet Dual Pack Pro Ophthalmology Lenses: Other (SA60 29,5) Procedure Notes: PREOPERATIVE DIAGNOSIS: Decreased visual acuity right eye secondary to cataract POSTOPERATIVE DIAGNOSIS: Same PROCEDURE: Right cataract extraction with intraocular lens insertion SURGEON: Bernard Mayo M.D. ANESTHESIA: Topical/MAC ESTIMATED BLOOD LOSS: None COMPLICATIONS: Torn Haptic required IOL exchange After obtaining informed consent, the patient was brought to the operating room suite and placed in the supine position. After adequate sedation per anesthesia, topical drops of Tetracaine were given to the right eye. The eye was then prepped and draped in the usual sterile fashion. The operating room microscope was then positioned over the operative eye and a lid speculum placed. A paracentesis was created. Viscoelastic was then instilled into the anterior chamber. A three plane incision was then created temporally, utilizing a 2.85 mm keratome. Capsulotomy forceps were then utilized to create a circular tear capsulotomy. Hydrodissection and hydrodelineation were carried out until adequate mobilization of the nucleus occurred. Phacoemulsification was then utilized to remove the dense central nucleus followed by removal of the cortical material utilizing the automated aspiration irrigation unit. Viscoelastic was instilled into the posterior capsular bag followed by placement of a posterior chamber intraocular lens without difficulty. While remoning the IOL senior executive assistant the traing haptic tore free from the Optic, this required an IOL exchange. The dammsged lens was folded intraocularly and removed followed by placemnt of a new PCIOL into the capsular bag without difficulty.The residual Viscoelastic was then removed utilizing the automated IA machine. The wound was checked and found to be watertight. The patient tolerated the procedure well and the lid speculum was removed. Intracameral injection of Vigamox 0.1 mL followed by a subtenon injection of Kenalog-40 0.2 mL were administered. The patient will be seen in the a.m.
--- NOTE | 2024-11-02 10:09 | MHC.SHP ---
Pre-Procedural Eval Section A - 24 Hr Update-Section A only Date of Service: 11/02/24 The patient is an INPATIENT: No Changes since office visit: No Cold of Flu in the past 2 weeks, No New Medical Problems, No Changes in Medication and No Patient answered all questions The patient has been examined within 24 hours of the surgical procedure. The History & Physical has been completed within 30 days and I have reviewed it.: Yes Section B - Complete if H&P > 30 days Chief Complaint: Age-related nuclear cataract, right eye Allergies: Allergies Allergy/AdvReac Type Severity Reaction Status Date / Time duloxetine [From Cymbalta] Allergy Intermediate Gastrointestinal Verified 10/28/24 09:40 Upset gabapentin Allergy Intermediate Gastrointestinal Verified 10/28/24 09:40 Upset milnacipran [From Savella] Allergy Intermediate Gastrointestinal Verified 10/28/24 09:40 Upset naloxegol [Movantik] Allergy Intermediate Gastrointestinal Verified 10/28/24 09:40 Upset pregabalin [From Lyrica] Allergy Intermediate Gastrointestinal Verified 10/28/24 09:40 Upset Plan Diagnosis/Plan: Unchanged I have reviewed the history and physical and performed a pertinent physical examination on my patient. No changes have occurred unless specified. Time Spent With Patient Time: Total time managing care of this patient today ____ minutes.
[2024-11-02 10:50] VITALS: BP 143/72; PULSE 96; RESP 16; TEMP 37.1; O2SAT 97
== END 2024-11-02 10:55 | disposition home or self-care (01) ==
PROVIDERS: PCP Internal Medicine; Visit Provider Ophthalmology
PROC: (CPT 66985; principal; 2024-11-02 10:30)
DX: T85.29XA Other mechanical complication of intraocular lens, initial encounter (principal); Y77.2 Prosthetic and other implants, materials and accessory ophthalmic devices associated with adverse incidents; H25.11 Age-related nuclear cataract, right eye; H54.7 Unspecified visual loss; Y83.1 Surgical operation with implant of artificial internal device as the cause of abnormal reaction of the patient, or of later complication, without mention of misadventure at the time of the procedure; Y92.234 Operating room of hospital as the place of occurrence of the external cause; H40.053 Ocular hypertension, bilateral; H40.213 Acute angle-closure glaucoma, bilateral; H18.413 Arcus senilis, bilateral; E13.9 Other specified diabetes mellitus without complications; I10 Essential (primary) hypertension; E78.00 Pure hypercholesterolemia, unspecified; K21.9 Gastro-esophageal reflux disease without esophagitis; M79.7 Fibromyalgia; R79.89 Other specified abnormal findings of blood chemistry; Z79.4 Long term (current) use of insulin; F11.20 Opioid dependence, uncomplicated; Z79.899 Other long term (current) drug therapy; Z88.8 Allergy status to other drugs, medicaments and biological substances
CPT/HCPCS: 66984; 66986; 82947; J2250; J3301; V2632

== ENCOUNTER 2024-11-10 11:17 | Outpatient (REF) | payer MEDICARE, MEDICAID, SELFPAY ==
--- NOTE | ~2024-11-10 | US_ITS ---
CLINICAL HISTORY: R79.89 - Other specified abnormal findings of blood chemistry --- Additional Notes or Special Instructions: LFT ELEVATION, RUQ ABDOMINAL PAIN US abdomen limited with color Doppler Comparison: MR/IA/SR - MR ABDOMEN WO/W CON - 09/25/23 08:37 EDT US/IA/SR - US ABDOMEN COMP W ELASTOGRAPHY - 08/28/23 08:00 EST Findings: Visualized pancreas is normal. Tail obscured by bowel gas. Liver is normal in size and echotexture. Right lobe length 12.8 cm. No focal masses. Mild intrahepatic ductal dilatation right lobe of the liver. Common duct 7.2 mm diameter. Post cholecystectomy Right kidney measures, 10.3 cm in length. Normal cortical width and echotexture. No hydronephrosis calculus or mass. Impression: 1. Post cholecystectomy. Mild intrahepatic ductal dilatation right lobe of the liver. This was demonstrated on prior imaging. This document has been electronically signed by: Russ Winter MD on 11/11/2024 07:45:52
--- OUTSIDE RECORDS SUMMARY | 2024-11-10 13:08 | XMS_ITS | Patient Health Record ---
Author Organization [facility] Address [address] [place] [address] Care Team Providers Care Pelt Grader Name Role Phone Wilner GONSALES, Asma Primary Care Provider Tommy Almonte [phone] Allergies Allergen (clinical drug ingredient) Drug/Non Drug Allergy documented on EMR Reaction Allergy Type Onset Date Status naloxegol Movantik Unknown Drug Allergy Active Results Component Value Reference Range Notes Liver Panel (Not yet reviewe d by provider) Interpretation: Performing Lab:[facility], [address] [place] [phone] Notes/Report: Bilirubin Total 0.5 0.0-1.0 mg/dL Bilirubin Direct 0.2 0.0-0.5 mg/dL Slight Hem olysis Aspartate Amino Transferase 27 5-31 U/L Slight Hemolysis Alanine Aminotransferase 19 0-31 U/L Total Protein 8.0 6.5-8.0 g/dL Albumin Level 4.0 3.5-5.0 g/dL Alkaline Phosphatase 148 39-117 U/L Other Ref Test - Misc Reviewed date:01/16/2024 07:44:59 PM Interpretation: Performing Lab:[facility], [address] [place] [phone] Notes/Report: LIVER KIDNEY MICROSOMAL AB CODE 41920 Other Ref Test - Misc SEE NOTE [...] hepatitis C infection. THIS TEST PERFORMED AT: [facility] [address] [place] [address] [phone] PHYSICAL INSTRUCTOR: JAH ROMERO MD, PHD Mitochondrial Antibody Reviewed date:01/16/2024 07:44:22 PM Interpretation: Performing Lab:[facility], [address] [place] [phone] Notes/Report: Mitochondrial Antibodies NEGATIVE NEGATIVE THIS TEST WAS PERFORMED AT: [facility] [address] [place] [phone] GRACE WHITMORE MD Mitochondrial Ab Titer TNP [...] Status Risk Notes Problem Colon cancer screening (852349837) Colon cancer screening (Z12.11) Active confirmed Problem 827757941 Encounter for screening for malignant neoplasm of colon (Z12.11) Active confirmed Problem 879443558 History of adenomatous polyp of colon (Z86.010) Active confirmed Problem Constipation (39456472) Constipation (K59.00) Active confirmed Problem 159802708 Abdominal bloati ng (R14.0) Active confirmed Problem Early satiety (999345673) Early satiety (R68.81) Active confirmed Problem Elevated liver enzymes level (692412636) Elevated liver function tests (R79.89) Active confirmed Problem 582900833 Elevated liver enzymes (R74.8) Active confirmed Problem Fatty liver (568956408) Fatty liver (K76.0) Active confirmed Problem 428922456 Gastroesophageal reflux disease, esophagitis presence not specified (K21.9) Active confirmed Problem Serum alpha-fetoprote in level elevated (692784263) Elevated alpha fetoprotein (R77.2) Active confirmed Problem 168355699 Abdominal pain, generalized (R10.84) Active confirmed Problem Alkaline phosphatase raised (860165035) Elevated alkaline phosphatase level (R74.8) Active confirmed Problem 00166519 Irritable bowel syndrome, unspecified type (K58.9) Active confirmed Problem 706022332 Abdominal pain, RUQ (right upper quadrant) (R10.11) Active confirmed Problem Abnormal findings diagnostic imaging of liver and biliary tract (238492683) Abnormal ultrasound of biliary tract (R93.2) Active confirmed Vital Signs Temperature 98.2 degrees Fahrenheit 11/15/2023 Blood pressure diastolic 00 mm Hg 11/15/2023 Height 63 in 11/15/2023 Blood pressure systolic 000 mm Hg 11/15/2023 Weight 159 lb 4 oz lbs 11/15/2023 BMI 28.21 kg/m2 11/15/2023 Encounters Encounter Location Date Provider Diagnosis [facility] [address] [place] [address] 11/15/2023 Tommy Roberts Elevated alkaline phosphatase level [...] Name Order Date BUN 09/06/2023 LIVER PROFILE 08/06/2023 LIVER PROFILE 11/15/2023 LIVER PROFILE 10/07/2019 LIVER PROFILE 04/20/2020 LIVER PROFILE 10/11/2020 LIVER PROFILE 07/03/2018 AMYLASE 10/07/2019 LIPASE 10/07/2019 GGT 08/06/2023 CBC [...] Name:Tommy Roberts , 11/13/2024 01:00:00 PM, [address], [address], [place], [address], Insurance Providers Payer Name Payer Address Payer Phone Subscriber Number Group Number Insured Name Patient Relationship to Insured Coverage Start Date Coverage End Date [facility] [address] [facility] [place] [phone] [id number] SYEDA DOLL Self - patient is the insured MEDICAID OF [employer] [address] [place] [phone] [id number] SYEDA DOLL Self - patient is the insured Medical (General) History Medical History History ICD Code IDDM Hypertension Denies ID,CVA,Lung disease,renal disease Neg. colonoscopy in 2004 wit [...]
--- OUTSIDE RECORDS SUMMARY | 2024-11-10 13:08 | XMS_ITS ---
Author Organization [facility] Address [address] [place] [address] Care Team Providers Care Pedigree Tracer Name Role Phone Wilner GONSALES, [facility] Primary Care Provider Tommy Almonte [phone] Allergies Allergen (clinical drug ingredient) Drug/Non Drug [...] W/U Status Risk Notes Problem Elevated liver function tests (R79.89) Active confirmed Vital Signs Temperature 98.2 degrees Fahrenheit 11/15/19 24 Blood pressure systolic 000 mm Hg 11/15/19 24 Blood pressure diastolic 00 mm Hg 024 Height 63 in 11/15/2023 Weight 159 lb 4 oz lbs 11/15/2023 BMI 28.21 kg/m2 11/15/2023 Encounters Encounter Location Date Provider Diagnosis [facility] [address] [place] [address] 11/15/2023 Tommy Roberts Elevated alkaline phosphatase level [...] Provider Name:Tommy Roberts , 11/13/2024 01:00:00 PM, [address] [place] [address], [address], [place], [address], Progress Notes * SYEDA DOLL MDOB:1955 (67 yo F)Acc No.[id number]:11/15/2023 Progress Notes Patient:SYEDA MCMAHON Provider:?Tommy Roberts MD :1955???Age:67 Y???Sex:Female D ate:11/15/2023 Address:[address] [place] [address] Pcp:Tram Darby MD Subjective: * Chief Complaints: [...] Lower back spinal fusion Cervical disc surgery--Dr. Hetah 07/2020 * Hospitalization/Major Diagno stic Procedure:?No Hospitalization [...] Procedure Codes:?3017F COLOR ECTAL CA SCREEN DOC [id number] TOBACCO NON-PYIVB2214 BP SCR NOT PRFRM REC REASON NOS * Preventive Medicine:? ??Counseling:?Care goal follow-up plan:?Above Normal BMI Follow-up?Giving encouragement to exercise,?BMI management provided?Yes.? ??Urinary Incontinence:?Urinary Incontinence?Assessment:?Absent,?Plan of care documented:?No, reason not specified.? * Follow Up:?1 Year * * Sign off status: Completed true * Provider:?Tommy Roberts MD Date:? 024 Generated for Zohreh arzate/Jasper/eTransmitting on:?11/10/2024 01:08 PM EDT History and Physical Notes * [...]
--- OUTSIDE RECORDS SUMMARY | 2024-11-10 13:08 | XMS_ITS ---
Author Organization [facility] Address [address] [place] [address] Care Team Providers Care Cover Operator Name Role Phone Wilner GONSALES, Asma Primary Care Provider Tommy Almonte [phone] REASON FOR VISIT results ultrasound and labs Encounters Encounter Location Date Provider Diagnosis [facility] [address] [place] [address] 09/06/2023 Tommy Roberts Plan Of Treatment Next Appt Details Provider Name:Tommy Roberts , 11/13/2024 01:00:00 PM, [address], [address], [place], [address], Progress Notes * ALETHEA PATEL MDOB:[birth year] (67 yo F)Acc No.[id number]:09/06/2023 Patient:?ALETHEA PATEL :1955???Age:67 Y???Sex:Female Address:[address] [place] [address] * true * Date:? Generated for Printi huey/Jasper/eTransmitting on:?11/10/2024 01:07 PM EDT
--- OUTSIDE RECORDS SUMMARY | 2024-11-10 13:08 | XMS_ITS ---
Author Organization [facility] Address [address] [place] [address] Care Team Providers Care Insect Control Inspector Name Role Phone Wilner [facility]ES, [facility] Primary [facility] Provider Tommy Almonte [phone] REASON FOR VISIT Needs MRI/MRCP Problems Problem Type SNOMED Code ICD Code Onset Dates Problem Status W/U Status Risk Notes Problem Alkaline phosphatase raised (081106998) Elevated alkaline phosphatase level (R74.8) Active confirmed Problem Abnormal ultrasound of biliary tract (R93.2) Active confirmed Problem Serum alpha-fetoprotei n level elevated (101342349) Elevated alpha fetoprotein (R77.2) Active confirmed Encounters Encounter Location Date Provider Diagnosis [facility] [address] [place] [address] 09/06/2023 Tommy Roberts Elevated alkaline phosphatase level [...] 01:00:00 PM, [address], [address], [place], [address], Progress Notes * ALETHEA PATEL MDOB:[birth year] (67 yo F)Acc No.[id number]:09/06/2023 Patient:?ALETHEA PATEL :1955???Age:67 Y???Sex:Female Address:[address] [place] [address] Subjective: * Chief Complaints: * ???Needs MRI/MRCP [...] Liver mass and biliary o bstructionapproved A [id number], 09/12/23-11/11/2023 [facility] [address]. [id number] * 3.?Elevated alpha fetoprotein?LAB: BUN ?LAB: Creatinine ?Imaging: MRI ABD W&WO CONTRAST* R/O Liver mass and biliary o bstructionapproved A [id number], 09/12/23-11/11/2023 [facility] [address]. [id number] * * Procedure Codes:? * true * Date:? Generated for Kellyi huey/Jasper/eTransmitting on:?11/10/2024 01:08 PM EDT
== END 2024-11-10 11:18 | disposition home or self-care (01) ==
LOC: HO.HMGCX 11:17
PROVIDERS: PCP Internal Medicine; Visit Provider Internal Medicine
DX: R79.89 Other specified abnormal findings of blood chemistry (principal); R10.11 Right upper quadrant pain
CPT/HCPCS: 76705

== ENCOUNTER → 2024-11-10 11:18 | Outpatient (BNV) | payer MEDICARE, MEDICAID, SELFPAY | PROVIDERS: PCP Internal Medicine; Visit Provider Radiology Diagnostic Radiology | DX: R10.11 Right upper quadrant pain (principal); R79.89 Other specified abnormal findings of blood chemistry | CPT/HCPCS: 76705 ==

== ENCOUNTER 2024-11-16 06:39 | Day surgery (SDC) | payer MEDICARE, MEDICAID, SELFPAY ==
[2024-10-29 08:22] VITALS: BMI 28.1
--- NOTE | 2024-11-13 08:56 | HO.ANESPROP2 ---
Documented by User: Anne Esquivel NP 11/13/24 08:57 HPI - Anesthesia Eval Consult details Narrative: 68yo F for Left Cataract Extraction IOL Insertion Right eye 11/02/24: Midaz 2 Fentanyl patch PMFSH Active Problems Active Problems: All Active Problems Age-related cataract of both eyes (Acute) LFT elevation (Acute) Right lumbar radiculitis (Acute) RUQ abdominal pain (Acute) Palpitations (Acute) Gingivitis (Acute) Epigastric pain (Acute) Chest discomfort (Acute) Cervical radiculitis (Acute) Arthrosis (Acute) Foot pain, left (Acute) Epigastric burning sensation (Acute) Post-COVID syndrome (Acute) Migraine headache (Acute) Foul smelling urine (Acute) Medication management contract signed (Acute) Elevated blood pressure reading (Acute) Pre-op evaluation (Acute) Right otitis media (Acute) 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 (Acute) Acute sinusitis (Acute) Sacroiliitis (Acute) Hip pain, right (Acute) Radiculitis, lumbosacral (Acute) HNP (herniated nucleus pulposus), lumbar (Acute) Spinal stenosis, lumbar (Acute) Lipid disorder (Acute) Essential hypertension (Acute) Other and unspecified hyperlipidemia (Acute) Abdominal pain (Acute) Hospital discharge follow-up (Acute) Shortness of breath (Acute) Open fracture of proximal phalanx of right little finger (Acute) Injury of digital nerve of right little finger (Acute) Pain management (Acute) Narcotic dependence (Acute) Herniated nucleus pulposus, cervical (Acute) Hypertension, essential (Acute) Muscle spasm (Acute) Failed back syndrome (Acute) DJD (degenerative joint disease) of thoracic spine (Acute) Radiculitis of right cervical region (Acute) Chronic GERD (Acute) LFTs abnormal (Acute) Diabetes 1.5, managed as type 1 (Acute) Past Medical History Medical History (Updated 10/28/24 @ 11:57 by Tram Darby MD) Asthma Hx of irritable bowel syndrome Pain management Narcotic dependence Herniated nucleus pulposus, cervical Hypertension, essential Muscle spasm Failed back syndrome DJD (degenerative joint disease) of thoracic spine Radiculitis of right cervical region Chronic GERD LFTs abnormal Diabetes 1.5, managed as type 1 Family History Family History Father No problems noted. Mother Stomach cancer Family history of problems with anesthesia: No Surgical History Surgical History (Updated 11/16/24 @ 07:05 by Anu Jones RN) H/O cataract extraction History of cervical spinal surgery History of lumbar surgery History of esophagogastroduodenoscopy History of colonoscopy History of esophagogastroduodenoscopy History of hysterectomy with oophorectomy Hx of cholecystectomy History of Problems with Anesthesia: No Social History Social History Housing: House Alcohol intake: never Patient Tobacco Use Status: Never used Tobacco e-Cigarette/Vaping Use: Never Used Use of substances other than those prescribed or required for medical reasons: No Restoration Healthcare Practices: Rastafarian Advance Directives Information Provided: Yes (as above noted) Advance Directives on File: No FDLMP: n/a service: No Current occupational status: disabled Cognitive needs: No Hearing needs: No Vision needs: Yes Meds Allergies Allergy/AdvReac Type Severity Reaction Status Date / Time duloxetine [From Cymbalta] Allergy Intermediate Gastrointestinal Verified 11/16/24 07:05 Upset gabapentin Allergy Intermediate Gastrointestinal Verified 11/16/24 07:05 Upset milnacipran [From Savella] Allergy Intermediate Gastrointestinal Verified 11/16/24 07:05 Upset naloxegol [Movantik] Allergy Intermediate Gastrointestinal Verified 11/16/24 07:05 Upset pregabalin [From Lyrica] Allergy Intermediate Gastrointestinal Verified 11/16/24 07:05 Upset Active Medications: Current Medications Povidone Iodine (Povidone Iodine 5 % Ophth Soln 30 Ml Bottle) 1 appl EYE-LEFT PREOP PRN PRN Reason: Pre-Op Surgical Implant Prophy Home Medications ?Medication ?Instructions ?Recorded ?Confirmed ?Last Taken ?Type latanoprost 0.005 % eye drops 1 drp ophthalmic (eye) BEDTIME 04/29/20 11/16/24 11/01/24 History sucralfate 1 gram tablet (Carafate) 1 g PO BID PRN Acid Reflux 11/16/24 11/16/24 Unknown History Exam Height,Weight and Vital Signs: Height 5 ft 4 in Weight 74.389 kg Assessment and Plan Assessment Anesthesia Assessment: Chart Reviewed Final Anesthetic Review Family History of Problems with Anesthesia: No History of Problems with Anesthesia: No Documented by User: Mesha Brooke MD 11/16/24 07:19 PMFSH Past Medical History Medical History (Updated 10/28/24 @ 11:57 by Tram Darby MD) Asthma Hx of irritable bowel syndrome Pain management Narcotic dependence Herniated nucleus pulposus, cervical Hypertension, essential Muscle spasm Failed back syndrome DJD (degenerative joint disease) of thoracic spine Radiculitis of right cervical region Chronic GERD LFTs abnormal Diabetes 1.5, managed as type 1 Family History Family History Father No problems noted. Mother Stomach cancer Surgical History Surgical History (Updated 11/16/24 @ 07:05 by Anu Jones RN) H/O cataract extraction History of cervical spinal surgery History of lumbar surgery History of esophagogastroduodenoscopy History of colonoscopy History of esophagogastroduodenoscopy History of hysterectomy with oophorectomy Hx of cholecystectomy Social History Social History Housing: House Alcohol intake: never Patient Tobacco Use Status: Never used Tobacco e-Cigarette/Vaping Use: Never Used Use of substances other than those prescribed or required for medical reasons: No [employer] Healthcare Practices: Rastafarian Advance Directives Information Provided: Yes (as above noted) Advance Directives on File: No FDLMP: n/a service: No Current occupational status: disabled Cognitive needs: No Hearing needs: No Vision needs: Yes Meds Allergies Allergy/AdvReac Type Severity Reaction Status Date / Time duloxetine [From Cymbalta] Allergy Intermediate Gastrointestinal Verified 11/16/24 07:05 Upset gabapentin Allergy Intermediate Gastrointestinal Verified 11/16/24 07:05 Upset milnacipran [From Savella] Allergy Intermediate Gastrointestinal Verified 11/16/24 07:05 Upset naloxegol [Movantik] Allergy Intermediate Gastrointestinal Verified 11/16/24 07:05 Upset pregabalin [From Lyrica] Allergy Intermediate Gastrointestinal Verified 11/16/24 07:05 Upset Home Medications ?Medication ?Instructions ?Recorded ?Confirmed ?Last Taken ?Type latanoprost 0.005 % eye drops 1 drp ophthalmic (eye) BEDTIME 04/29/20 11/16/24 11/01/24 History sucralfate 1 gram tablet (Carafate) 1 g PO BID PRN Acid Reflux 11/16/24 11/16/24 Unknown History Exam Airway Mallampati Class: II TM Dist: >3cm Neck ROM: Full Heart: rrr Lungs: cta Assessment and Plan Assessment Anesthesia Assessment: Anesthesia Plan Discussed Final Anesthetic Review NPO: Yes ASA Class: III Final Preanesthetic Review: No Changes in Pt Med Stat, Meds/Allgs Chart Reviewed and Consent Obtained/Reviewed Patient Risk: Low Procedure Risk: Low Anesthetic Plan Anesthetic Plan: MAC: Disposition: Standard PACU
[2024-11-16 07:08] VITALS: BP 121/59; PULSE 88; RESP 16; TEMP 36.5; O2SAT 99; BMI 28.8
[2024-11-16 07:13] LABS: Glucose, Whole Blood 146 mg/dL (60-115)
[2024-11-16] MEDS: Tetracaine HCl/PF 0.5% Oph Sol 4 ML DROPS 1 DROP EYE-LEFT (07:20)
[2024-11-16] MEDS: Cyclopentolate 1 % Ophth Sol 2 ML DRPBTL 1 DROP EYE-LEFT ×3 (07:22→07:37)
[2024-11-16] MEDS: Tropicamide 1 % Ophth Sol 3 ML BTL 1 DROP EYE-LEFT ×3 (07:23→07:38)
[2024-11-16] MEDS: Ketorolac Tromethamine 0.5% Op 5 ML DROPS 1 DROP EYE-LEFT ×3 (07:31→07:39)
[2024-11-16] MEDS: Phenylephrine HCL 2.5% Oph SoL 2 ML BOTTLE 1 DROP EYE-LEFT ×3 (07:31→07:39)
[2024-11-16] MEDS: Lactated Ringers 500 ML 50 ML IV (07:36)
--- NOTE | 2024-11-16 08:08 | P.HPSUR_ITS ---
Pre-Procedural Eval Section A - 24 Hr Update-Section A only Date of Service: 11/16/24 The patient is an INPATIENT: No Changes since office visit: No Cold of Flu in the past 2 weeks, No New Medical Problems, No Changes in Medication and No Patient answered all questions The patient has been examined within 24 hours of the surgical procedure. The History & Physical has been completed within 30 days and I have reviewed it.: Yes Section B - Complete if H&P > 30 days Chief Complaint: Age-related nuclear cataract, left eye Allergies: Allergies Allergy/AdvReac Type Severity Reaction Status Date / Time duloxetine [From Cymbalta] Allergy Intermediate Gastrointestinal Verified 11/16/24 07:05 Upset gabapentin Allergy Intermediate Gastrointestinal Verified 11/16/24 07:05 Upset milnacipran [From Savella] Allergy Intermediate Gastrointestinal Verified 11/16/24 07:05 Upset naloxegol [Movantik] Allergy Intermediate Gastrointestinal Verified 11/16/24 0 7:05 Upset pregabalin [From Lyrica] Allergy Intermediate Gastrointestinal Verified 11/16/24 07:05 Upset Plan Diagnosis/Plan: Unchanged I have reviewed the history and physical and performed a pertinent physical examination on my patient. No changes have occurred unless specified. Time Spent With Patient Time: Total time managing care of this patient today ____ minutes.
--- NOTE | 2024-11-16 08:08 | HO.PNOPHT ---
Ophthalmology Procedure Procedure Date of Service: 11/16/24 Ophthalmology Viscoelastic: Healon Duet Dual Pack Pro Ophthalmology Lenses: IOL Acrysof MP - MA60AC (30) Procedure Notes: PREOPERATIVE DIAGNOSIS: Decreased visual acuity left eye secondary to cataract POSTOPERATIVE DIAGNOSIS: Same PROCEDURE: Left cataract extraction with intraocular lens insertion SURGEON: Bernard Mayo M.D. ANESTHESIA: Topical/MAC ESTIMATED BLOOD LOSS: None COMPLICATIONS: Capular Tear After obtaining informed consent, the patient was brought to the operation room suite and placed in the supine position. After adequate sedation per anesthesia, topical drops of Tetracaine were given to the left eye. The eye was then prepped and draped in the usual sterile fashion. The operating room microscope was then positioned over the operative eye and a lid speculum placed. A paracentesis was created. Viscoelastic was then instilled into the anterior chamber. A three plane incision was then created temporally, utilizing a 2.85 mm keratome. Capsulotomy forceps were then utilized to create a circular tear capsulotomy. Hydrodissection and hydrodelineation were carried out until adequate mobilization of the nucleus occurred. Phacoemulsification was then utilized to remove the dense central nucleus followed by removal of the cortical material utilizing the automated aspiration irrigation unit. A capsular tear was noted requiring a Weck cell vitrectomy and placent of the IOL into thge sulsus.Miochol was instilled constricting the pupil. The residual Viscoat elastic was then removed utilizing the automated IA machine. The wound was check and found to be watertight. The patient tolerated the procedure well and the lid speculum was removed. Intracameral injection of Vigamox 0.1 mL followed by a subtenon injection of Kenalog-40 0.2 mL were administered. The patient will be seen in the a.m.
[2024-11-16 08:49] VITALS: BP 139/76; PULSE 96; RESP 16; TEMP 36.6; O2SAT 98
== END 2024-11-16 09:09 | disposition home or self-care (01) ==
PROVIDERS: PCP Internal Medicine; Visit Provider Ophthalmology
PROC: (CPT 66985; principal; 2024-11-16 08:00)
DX: H25.12 Age-related nuclear cataract, left eye (principal); H59.212 Accidental puncture and laceration of left eye and adnexa during an ophthalmic procedure; H54.7 Unspecified visual loss; Y77.2 Prosthetic and other implants, materials and accessory ophthalmic devices associated with adverse incidents; Y65.8 Other specified misadventures during surgical and medical care; Y92.234 Operating room of hospital as the place of occurrence of the external cause
CPT/HCPCS: 66984; 67005; 66986; 82947; J2250; J2371; J3301; J7315; V2630

== ENCOUNTER 2024-11-23 09:48 | Outpatient (REF) | payer MEDICARE, MEDICAID, SELFPAY ==
--- OUTSIDE RECORDS SUMMARY | 2024-11-23 10:09 | XMS_ITS ---
Author Organization [facility] Address [address] [place] [address] Care Team Providers Care Patient Safety Coordinator Name Role Phone Wilner GONSALES, [facility] Provider Tommy Almonte [phone] Allergies Allergen (clinical drug ingredient) Drug/Non Drug [...] Risk Notes Problem Elevated liver enzymes level ([id number]) Elevated liver function tests (R79.89) Active confirmed Vital Signs Temperature 98.2 degrees Fahrenheit 11/15/19 24 Blood pressure systolic 000 mm Hg 11/15/19 24 Blood pressure diastolic 00 mm Hg 024 Height 63 in 11/15/2023 Weight 159 lb 4 oz lbs 11/15/2023 BMI 28.21 kg/m2 11/15/2023 Encounters Encounter Location Date Provider Diagnosis [facility] [address] [place] [address] 11/15/2023 Tommy Roberts Elevated alkaline phosphatase level [...] her to set up a liver biopsy. Seyda was comfortable with this plan. Thank you [...] 1 Year, Reason: Provider Name:Tommy Roberts , 04/14/2025 01:20:00 PM, [address] [place] [address], [address], [place], [address], Progress Notes * SYEDA DOLL MDOB:1955 (67 yo F)Acc No.[id number]:11/15/2023 Progress Notes Patient:?SYEDA DOLL Provider:?Tommy Roberts MD :1955???Age:67 Y???Sex:Female D ate:11/15/2023 Address:[address] [place] [address] Pcp:Tram Darby MD Subjective: * Chief Complaints: [...] Procedure Codes:?3017F COLOR ECTAL CA SCREEN DOC [id number] TOBACCO [id number] BP SCR NOT PRFRM REC REASON NOS * Preventive Medicine:? ??Counseling:?Care goal follow-up plan:?Above Normal BMI Follow-up?Giving encouragement to exercise,?BMI management provided?Yes.? ??Urinary Incontinence:?Urinary Incontinence?Assessment:?Absent,?Plan of care documented:?No, reason not specified.? * Follow Up:?1 Year * * Sign off status: Completed true * Provider:?Tommy Roberts MD Date:? 024 Generated for Zohreh arzate/Jasper/Elginsmitting on:?11/23/2024 10:09 AM EDT History and Physical Notes * [...]
--- OUTSIDE RECORDS SUMMARY | 2024-11-23 10:09 | XMS_ITS ---
Author Organization [facility] Address [address] [place] [address] Care Team Providers Care Graphic Specialist Name Role Phone Wilner GONSALES, [facility] Primary [facility] Provider Tommy Almonte [phone] Allergies Allergen (clinical drug ingredient) Drug/Non Drug Allergy documented on EMR Reaction Allergy Type Onset Date Status naloxegol Movantik Unknown Drug Allergy Active REASON FOR VISIT Patient presents today for an elevated liver enzymes,gerd Medications Medication SIG (Take, Route, Frequency, Duration) Notes Start Date End Date Status Dicyclomine HCl 10 MG TAKE 1-2 CAPS [...] for 30 days 08/16/2022 Active Latanoprost Active Famotidine 20 MG TAKE 1 TABLET BY DAVI TH EVERYDAY AT BEDTIME Orally Twice a day Active Lantus 100 UNIT/ML 30 Subcutaneous QHS Active Ibuprofen PRN Active tiZANidine HCl Activ e BD Pen Needle Mini U/F Active Lisinopril 40 MG TAKE 1 TABLET BY DAVI TH EVERY DAY Orally Once a day Active amLODIPine Besylate 10 MG 1 tablet Orally Once a day Active fentaNYL 50 MCG/HR (Schedule II Drug) A PPLY 1 PATCH TO THE SKIN AND CHANGE EVERY OTHER DAY Transdermal for 30 Active Social History Tobacco Use: Social History Observation Description Date Details (start date - stop date) Never Smoker NA - NA Tobacco Use/Smoking Question Answer Notes Patient is a nonsmoker Alcohol Screen Question Answer Notes Did you have a drink containing alcohol in the p ast year? No Points 0 Interpretation Negative Section Notes: Nonsmoker; no sig alcohol Vital Signs Temperature 98.6 degrees Fahrenheit 11/14/19 25 Blood pressure systolic 001 mm Hg 11/14/19 25 Blood pressure diastolic 01 mm Hg 025 Height 63 in 11/13/2024 Weight 161 lbs 11/13/2024 BMI 28.52 kg/m2 11/13/2024 Encounters Encounter Location Date Provider Diagnosis [facility] [address] [place] [address] 11/13/2024 Tommy Roberts Elevated liver enzymes R74.8 and Fatty liver K76.0 Assessments Encounter Date Diagnosis (ICD Code) Assessment Notes Treatment Notes Treatment Clinical Notes Section Notes 11/13/2024 Elevated liver enzymes (ICD-10 - R74.8) Overall, Syeda appears well. We did review her significantly elevated LFTs from earlier this year and I advised her that this seems to correlate with her relatively poorly controlled diabetes contributing to the worsening fatty liver. We did review that when her LFTs are particularly high then that would cause some right upper quadrant discomfort due to some edema and stretching of her liver capsule from the inflammation. We did review that getting better control of her diabetes with medication, diet, and weight loss would help her liver as well as be good for her overall health. We also discussed that keeping a close eye on her lipids would be important as well. Although her workup has been completely negative and this seems certainly consistent with fatty liver, I did recommend a liver biopsy at this point given the significant elevations on a persistent basis. This will be done by ultrasound guidance. I shall check the below laboratories beforehand. Depending upon the results we may need to start her on a medication such as ursodiol or one of the newer medications for fatty liver. However again, I did stress to her that better control of her diabetes will be very important going forward in relation to her overall health as well as specifically for the fatty liver. I have given her an appointment to see me again in the Fall for follow-up. Syeda was comfortable with this plan. Thank you again for allowing me to participate in Syeda's care. I shall continue to keep you advised of her progress.. 11/13/2024 Fatty liver (ICD-10 - K76.0) You need to get better control of the diabetes with medication and diet. That will help your liver. Overall, Syeda appears well. We did review her significantly elevated LFTs from earlier this year and I advised her that this seems to correlate with her relatively poorly controlled diabetes contributing to the worsening fatty liver. We did review that when her LFTs are particularly high then that would cause some right upper quadrant discomfort due to some edema and stretching of her liver capsule from the inflammation. We did review that getting better control of her diabetes with medication, diet, and weight loss would help her liver as well as be good for her overall health. We also discussed that keeping a close eye on her lipids would be important as well. Although her workup has been completely negative and this seems certainly consistent with fatty liver, I did recommend a liver biopsy at this point given the significant elevations on a persistent basis. This will be done by ultrasound guidance. I shall check the below laboratories beforehand. Depending upon the results we may need to start her on a medication such as ursodiol or one of the newer medications for fatty liver. However again, I did stress to her that better control of her diabetes will be very important going forward in relation to her overall health as well as specifically for the fatty liver. I have given her an appointment to see me again in the Fall for follow-up. Syeda was comfortable with this plan. Thank you again for allowing me to participate in Syeda's care. I shall continue to keep you advised of her progress.. Plan Of Treatment Treatment Notes Assessment Notes Fatty liver You need to get bett er control of the diabetes with medication and diet. That will help your liver. Pending Test Test Name Order Date LIVER PROFILE 11/13/2024 CBC w DIFF 11/13/2024 US LIVER BIOPSY CORE GUIDE 11/13/2024 Prothrombin Time INR 11/13/2024 Partial Thromboplastin Time 11/13/2024 Liver Fibrosis Pnl 11/13/2024 Next Appt Details Follow Up: 2024, Jayla n: Provider Name:Tommy Roberts , 04/14/2025 01:20:00 PM, [address] [place] [address], [address], [place], [address], Progress Notes * SYEDA DOLL MDOB:1955 (68 yo F)Acc No.[id number]:11/13/2024 Progress Notes Patient:?SYEDA DOLL Provider:?Tommy Roberts MD :1955???Age:68 Y???Sex:Female D ate:11/13/2024 Address:[address] [place], [place] [id number] Pcp:Tram Darby MD Subjective: * Chief Complaints: * ???Patient presents today fo r an elevated liver enzymes,gerd * HPI: ???incontinence:? I saw Syeda in follow-up today in regard to her chronically elevated LFTs and presumed fatty liver. I last saw Muna in November 2023. Laboratories at that time were again negative for any evidence of primary biliary cholangitis in regard to the elevated liver enzymes including a significant elevation of the alkaline phosphatase. Since that time she has been feeling well but her blood sugars have continued to remain significantly elevated at times which do seem to correlate with significant rises in her LFTs as well. Most recently labs over the last couple of months have shown an AST as high as 88 and ALT as high as 252 along with an alkaline phosphatase of 405. Her hemoglobin A1c at that time was 8.4 at the end of September. She did have a follow-up liver profile in mid October showing an AST of 62, ALT 119, and alkaline phosphatase of 336. Her total bilirubin and albumin levels have remained normal throughout. Her cholesterol level in September was 234 with a triglyceride level of 194. She did have a normal CBC with platelet count in September as well. She did have a right upper quadrant ultrasound earlier this week that describes the liver is normal in appearance and without any sign of significant biliary disease. She has had a previous cholecystectomy. 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 She describes that her appetite has been fairly good and she has not lost any weight. She denies any signs of jaundice, significant heartburn, or dysphagia. She does have occasional right upper quadrant discomfort which seems to correlate with higher LFTs. She denies any hematochezia nor melena. She does not use any alcohol. * ROS:?General/Constitutional:?Change in appetite?denies.?Chills?denies.?Fatigue?denies.?Ophthalmologic:?Comments?all negative.?ENT:?Comments?all negative.?Respiratory:?hemoptysis?denies.?Cough?denies.?Cardiovascular:?Chest pain?denies.?Orthopnea?denies.?Gastrointestinal:?Comments?See HPI for details.?Genitourinary:?Hematuria?denies.?Dysuria?denies.?Musculoskeletal:?Painful joints?Back pain.?Weakness?denies.?Skin:?Itching?denies.?Rash?denies.?Neurologic:?Headache?denies.?Seizures?denies.?Psychiatric:?Comments?all negative.? * Medical History:? * Surgical History:?Cholecyste ctomy > 20 years ago MELONIE Lower back spinal fusion Cervical disc surgery--Dr. Heath 1Right Cataract * Hospitalization/Major Diagno stic Procedure:?No Hospitalization History. [...] MG Tablet 1 tablet Orally Once a day fentaNYL 50 MCG/HR Patch 72 Hour (Schedule II Drug) APPLY 1 PATCH TO THE SKIN AND CHANGE EVERY OTHER DAY Transdermal Lisinopril 40 MG Tablet TAKE 1 TABLET BY MOUTH EVERY DAY Orally Once a day Lantus 100 UNIT/ML Solution 30 Subcutaneous QHS Famotidine 20 MG Tablet TAKE 1 TABLET BY MOUTH EVERYDAY AT BEDTIME Orally Twice a day tiZANidine HCl BD Pen Needle Mini U/F Ibuprofen , Notes to Pharmacist: PRNLatanoprost MiraLax 17 GM/SCOOP Powder 1 capful from a 238gm bottle to the measured line in 8 ounces of water Orally Twice a day Metamucil 0.52 GM Capsule 2 capsules with 8 ounces of liquid Orally Once or twice a day for constipation Dicyclomine HCl 10 MG Capsule TAKE 1-2 CAPS EVERY 6 HOURS NEEDED ABDOMINAL CRAMPS/BLOATING/DISCOMFORT Taking amLODIPine Besylate 10 MG Tablet 1 tablet Orally Once a day Taking fentaNYL 50 MCG/HR Patch 72 Hour (Schedule II Drug) APPLY 1 PATCH TO THE SKIN AND CHANGE EVERY OTHER DAY Transdermal Taking Lisinopril 40 MG Tablet TAKE 1 TABLET BY MOUTH EVERY DAY Orally Once a day Taking Lantus 100 UNIT/ML Solution 30 Subcutaneous QHS Taking Famotidine 20 MG Tablet TAKE 1 TABLET BY MOUTH EVERYDAY AT BEDTIME Orally Twice a day Taking tiZANidine HCl Taking BD Pen Needle Mini U/F Taking Ibuprofen , Notes to Pharmacist: PRNTaking Latanoprost Taking MiraLax 17 GM/SCOOP Powder 1 capful from a 238gm bottle to the measured line in 8 ounces of water Orally Twice a day Taking Metamucil 0.52 GM Capsule 2 capsules with 8 ounces of liquid Orally Once or twice a day for constipation Taking Dicyclomine HCl 10 MG Capsule TAKE 1-2 CAPS EVERY 6 HOURS NEEDED ABDOMINAL CRAMPS/BLOATING/DISCOMFORT Not-Taking/PRNOmeprazole 20 MG Capsule Delayed Release TAKE 1 CAPSULE BY MOUTH EVERY DAY Medication List reviewed and reconciled with the patientNot-Taking/PRN Omeprazole 20 MG Capsule Delayed Release TAKE 1 CAPSULE BY MOUTH EVERY DAY Medication List reviewed and reconciled with the patient * Allergies:?Movantikyes[Aller gies Verified] Objective: * Vitals:?Wt: 161 lbs, Ht: 63 in, BMI: 28.52 Index, BP: 001/01 mm Hg, Temp: 98.6, Wt-k.03. * Examination: ???General Examination: ?GENERAL APPEARANCE:?pleasant, well nourished, well developed, in no acute distress.?EYES:?sclera non-icteric.?ORAL CAVITY:?mucosa moist.?NECK/THYROID:?no cervical lymphadenopathy, neck supple.?SKIN:?nonjaundiced, no spider angiomata.?HEART:?S1, S2 normal.?LUNGS:?clear to auscultation bilaterally.?ABDOMEN:?normal bowel sounds, no guarding or rigidity, no guarding or rigidity, no masses palpable, soft, nontender, nondistended.?EXTREMITIES:?no edema.?NEUROLOGIC:?alert and oriented.? Assessment: * Assessment: 1.?Elevated liver enzymes - R74.8 (Primary)???2.?Fatty liver - K76.0??? Overall, Syeda appears well. Gabriela esqueda did review her significantly elevated LFTs from earlier this year and I advised her that this seems to correlate with her relatively poorly controlled diabetes contributing to the worsening fatty liver. We did review that when her LFTs are particularly high then that would cause some right upper quadrant discomfort due to some edema and stretching of her liver capsule from the inflammation. We did review that getting better control of her diabetes with medication, diet, and weight loss would help her liver as well as be good for her overall health. We also discussed that keeping a close eye on her lipids would be important as well. Although her workup has been completely negative and this seems certainly consistent with fatty liver, I did recommend a liver biopsy at this point given the significant elevations on a persistent basis. This will be done by ultrasound guidance. I shall check the below laboratories beforehand. Depending upon the results we may need to start her on a medication such as ursodiol or one of the newer medications for fatty liver. However again, I did stress to her that better control of her diabetes will be very important going forward in relation to her overall health as well as specifically for the fatty liver. I have given her an appointment to see me again in the Fall for follow-up. Syeda was comfortable with this plan. Thank you again for allowing me to participate in Syeda's care. I shall continue to keep you advised of her progress.. Plan: * Treatment: 2.?Fatty liver?LAB: LIVER PROFILE ?LAB: CBC w DIFF ?LAB: Prothrombin Time INR ?LAB: Partial Thromboplastin Time ?LAB: Liver Fibrosis Pnl ?Imaging: US LIVER BIOPSY CORE GUIDE* Notes: You need to get better control of the diabetes with medication and diet. That will help yourliver.?? * Procedure Codes:?3017F COLOR ECTAL CA SCREEN DOC [id number] TOBACCO NON-SOHSV4901 BP SCR NOT PRFRM REC REASON NOS * Preventive Medicine:? ??Counseling:?Care goal follow-up plan:?Above Normal BMI Follow-up?Dietary management education, guidance, and counseling,?BMI management provided?Yes.? ??Urinary Incontinence:?Urinary Incontinence?Assessment:?Absent,?Plan of care documented:?No, reason not specified.? ??Screenings:?Fall Risk Screening?Fall Risk Assessment:?No falls in the past year,?Screening:?No falls in the past year,?Assessment:?Not performed, no reason specified,?Plan of Care:?Not documented, no reason specified.? * Follow Up:?Fall, 2024 * * Sign off status: Completed true * Provider:?Tommy Roberts MD Date:? 025 Generated for Zohreh arzate/Jasper/eTaustinsmitting on:?11/23/2024 10:09 AM EDT History and Physical Notes * HPI (History of Present Illness) Category Sub-Category Detail Notes Category Not es incontinence I saw Syeda in follow-up today in regard to her chronically elevated LFTs and presumed fatty liver. I last saw Muna in November 2023. Laboratories at that time were again negative for any evidence of primary biliary cholangitis in regard to the elevated liver enzymes including a significant elevation of the alkaline phosphatase. Since that time she has been feeling well but her blood sugars have continued to remain significantly elevated at times which do seem to correlate with significant rises in her LFTs as well. Most recently labs over the last couple of months have shown an AST as high as 88 and ALT as high as 252 along with an alkaline phosphatase of 405. Her hemoglobin A1c at that time was 8.4 at the end of September. She did have a follow-up liver profile in mid October showing an AST of 62, ALT 119, and alkaline phosphatase of 336. Her total bilirubin and albumin levels have remained normal throughout. Her cholesterol level in September was 234 with a triglyceride level of 194. She did have a normal CBC with platelet count in September as well. She did have a right upper quadrant ultrasound earlier this week that describes the liver is normal in appearance and without any sign of significant biliary disease. She has had a previous cholecystectomy. 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 She describes that her appetite has been fairly good and she has not lost any weight. She denies any signs of jaundice, significant heartburn, or dysphagia. She does have occasional right upper quadrant discomfort which seems to correlate with higher LFTs. She denies any hematochezia nor melena. She does not use any alcohol. Examination Category Sub-Category Detail Notes Category Not [...]
--- OUTSIDE RECORDS SUMMARY | 2024-11-23 10:09 | XMS_ITS ---
Author Organization [facility] Address [address] [place] [address] Care Team Providers Care Food Photographer Name Role Phone Wilner GONSALES, Asma Primary Care Provider Tommy Almonte [phone] Encounters Encounter Location Date Provider Diagnosis [facility] [address] [place] [address] 11/16/2024 Tommy Roberts Plan Of Treatment Next Appt Details Provider Name:Tommy Roberts , 04/14/2025 01:20:00 PM, [address], [address], [place], [address], Progress Notes * ALETHEA DOLL MDOB:1955 (68 yo F)Acc No.[id number]:11/16/2024 Patient:?ALETHEA DOLL :1955???Age:68 Y???Sex:Female Address:[address] [place] [address] * true * Date:? Generated for Printi huey/Jasper/eTransmitting on:?11/23/2024 10:09 AM EDT
--- OUTSIDE RECORDS SUMMARY | 2024-11-23 10:10 | XMS_ITS | Patient Health Record ---
Author Organization [facility] Address [address] [place] [address] Care Team Providers Care Youth Agent Name Role Phone Wilner GONSALES, Asma Primary Care Provider Tommy Almonte [phone] Allergies Allergen (clinical drug ingredient) Drug/Non Drug Allergy documented on EMR Reaction Allergy Type Onset Date Status naloxegol Movantik Unknown Drug Allergy Active Results Component Value Reference Range Notes Liver Panel (Not yet reviewe d by provider) Interpretation: Performing Lab:[facility], [address] [place] [phone] Notes/Report: Bilirubin Total 0.5 0.0-1.0 mg/dL Bilirubin Direct 0.2 0.0-0.5 mg/dL Slight Hem olysis Aspartate Amino Transferase 27 5-31 U/L Slight Hemolysis Alanine Aminotransferase 19 0-31 U/L Total Protein 8.0 6.5-8.0 g/dL Albumin Level 4.0 3.5-5.0 g/dL Alkaline Phosphatase 148 39-117 U/L Other Ref Test - Misc Reviewed date:01/16/2024 07:44:59 PM Interpretation: Performing Lab:[facility], [address] [place] [phone] Notes/Report: LIVER KIDNEY MICROSOMAL AB CODE 38577 Other Ref Test - Misc SEE NOTE [...] hepatitis C infection. THIS TEST PERFORMED AT: [employer] [place] [address] [place] [address] [phone] RASPER MACHINE OPERATOR: JAH ROMERO MD, PHD Mitochondrial Antibody Reviewed date:01/16/2024 07:44:22 PM Interpretation: Performing Lab:[facility], [address] [place] [phone] Notes/Report: Mitochondrial Antibodies NEGATIVE NEGATIVE THIS TEST WAS PERFORMED AT: [facility] [address] [place] [phone] GRACE WHITMORE MD Mitochondrial Ab Titer TNP [...] for constipation for 30 days 08/16/2022 Active Ibuprofen PRN Active Latanoprost Active tiZANidine HCl Activ e BD Pen Needle Mini U/F Active Famotidine 20 MG TAKE 1 TABLET BY DAVI TH EVERYDAY AT BEDTIME Orally Twice a day Active Lisinopril 40 MG TAKE 1 TABLET BY DAVI TH EVERY DAY Orally Once a day Active Lantus 100 UNIT/ML 30 Subcutaneous QHS Active Immunizations Vaccine Route Administration Date Status [...] Status Risk Notes Problem Colon cancer screening (291460553) Colon cancer screening (Z12.11) Active confirmed Problem 694132387 Encounter for screening for malignant neoplasm of colon (Z12.11) Active confirmed Problem 639803184 History of adenomatous polyp of colon (Z86.010) Active confirmed Problem Constipation (10136895) Constipation (K59.00) Active confirmed Problem 829780342 Abdominal bloati ng (R14.0) Active confirmed Problem Early satiety (895255833) Early satiety (R68.81) Active confirmed Problem Elevated liver enzymes level (668188564) Elevated liver function tests (R79.89) Active confirmed Problem 320171132 Elevated liver enzymes (R74.8) Active confirmed Problem Fatty liver (322843594) Fatty liver (K76.0) Active confirmed Problem 200869623 Gastroesophageal reflux disease, esophagitis presence not specified (K21.9) Active confirmed Problem Serum alpha-fetoprote in level elevated (370943142) Elevated alpha fetoprotein (R77.2) Active confirmed Problem 974977371 Abdominal pain, generalized (R10.84) Active confirmed Problem Alkaline phosphatase raised (467232202) Elevated alkaline phosphatase level (R74.8) Active confirmed Problem 45991230 Irritable bowel syndrome, unspecified type (K58.9) Active confirmed Problem 895945189 Abdominal pain, RUQ (right upper quadrant) (R10.11) Active confirmed Problem Abnormal ultraso und of biliary tract (R93.2) Active confirmed Vital Signs Temperature 98.6 degrees Fahrenheit 11/13/2024 Blood pressure diastolic 01 mm Hg 11/13/2024 Height 63 in 11/13/2024 Blood pressure systolic 001 mm Hg 11/13/2024 Weight 161 lbs 11/13/2024 BMI 28.52 kg/m2 11/13/2024 Encounters Encounter Location Date Provider Diagnosis [facility] [address] [place] [address] 11/13/2024 Tommy Roberts Elevated liver enzymes R74.8 and Fatty liver K76.0 [facility] [address] [place] [address] 11/16/2024 Tommy Roberts Assessments Encounter Date Diagnosis (ICD Code) Assessment [...] advised of her progress.. Plan Of Treatment Pending Test Test Name Order Date BUN 09/06/2023 LIVER PROFILE 07/03/2018 LIVER PROFILE 11/15/2023 LIVER PROFILE 10/07/2019 LIVER PROFILE 04/20/2020 LIVER PROFILE 10/11/2020 LIVER PROFILE 11/13/2024 LIVER PROFILE 08/06/2023 AMYLASE 10/07/2019 LIPASE 10/07/2019 GGT 08/06/2023 CBC w DIFF 10/07/2019 CBC w DIFF 11/13/2024 PROTHROMBIN TIME (PT, INR) 10/07/2019 ALPHA-FETOPROTEIN,TUMOR MARKER MRI ABD W&WO CONTRAST 09/06/2023 NUC GASTRIC ANTRUM EMPTYING 04/24/2022 US LIVER BIOPSY CORE GUIDE 11/13/2024 Prothrombin Time INR 11/13/2024 Partial Thromboplastin Time 11/13/2024 Liver Panel 01/03/2024 Creatinine 09/06/2023 Liver Fibrosis Pnl 08/06/2023 Liver Fibrosis Pnl 11/13/2024 Mitochondrial Antibody 11/15/2023 Liver Kidney Microsomal Ab 11/15/2023 US abdomen comp w elastography 4 Future Test Test Name Order Date COLONOSCOPY 10/11/2020 COLONOSCOPY 06/07/2021 Next Appt Details Provider Name:Tommy Roberts , 04/14/2025 01:20:00 PM, [address] [facility], [address], [place], [address], Insurance Providers Payer Name Payer Address Payer Phone Subscriber Number Group Number Insured Name Patient Relationship to Insured Coverage Start Date Coverage End Date [place] [address] [place] [address] [id number] SYEDA DOLL Self - patient is the insured 0 MEDICAID OF [employer] [address] [place] [phone] [id number] SYEDA DOLL Self - patient is the insured Medical (General) History Medical History History ICD Code IDDM Hypertension Denies [place],CVA,Lung disease,renal disease Neg. colonoscopy in 2004 wit [...] a fentanyl patch Surgical History Surgery Date(Month/Year) Right Cataract Cervical disc surgery--Dr. Heath 07/2020 Lower back spinal fusion MELONIE Cholecystectomy > 20 years ago
[2024-11-23 13:03] LABS: MANUAL DIFF FLAG NO
[2024-11-23 13:22] LABS: INTERNATIONAL NORM RATIO 0.9 (0.9-1.1); Prothrombin Time 10.7 SEC (10.9-12.4)
[2024-11-23 13:25] LABS: Partial Thromboplastin Time 32.4 SEC (26.0-36.8)
[2024-11-23 13:30] LABS: Basophils Percent Auto 0.4 % (0-2); Eosinophils Absolute Auto 0.1 X10*3/uL (0.0-0.4); Eosinophils Percent Auto 0.6 % (0-4); Hematocrit 40.1 % (37.0-47.0); Imm Gran Abs Auto 0.03 X10*3/uL (0.00-0.03); Imm Gran Pct Auto 0.4 % (0.0-0.4); Lymphocytes Absolute Auto 1.5 X10*3/uL (1.2-4.9); Mean Corpuscular HGB Conc 32.4 g/dl (31.0-35.0); Mean Corpuscular Hemoglobin 29.7 pg (27.0-33.0); Mean Corpuscular Volume 91.8 fL (80.0-98.0); Mean Platelet Volume 12.9 fL (9.4-12.3); Monocytes Absolute Auto 0.5 X10*3/uL (0.1-1.2); Monocytes Percent Auto 6.5 % (2-11); Neutrophils Absolute Auto 6.2 x10*3/uL (2.0-8.3); Neutrophils Percent Auto 74.1 % (45-73); Platelet Count 106 X10*3/uL (160-400); Red Blood Count 4.37 X10*6/uL (4.20-5.50); White Blood Count 8.3 X10*3/uL (4.8-10.8)
[2024-11-23 13:43] LABS: Alanine Aminotransferase 189 U/L (0-31); Albumin Level 4.1 g/dL (3.5-5.0); Alkaline Phosphatase 406 U/L (39-117); Aspartate Amino Transferase 110 U/L (5-31); Bilirubin Direct 0.3 mg/dL (0.0-0.5); Bilirubin Total 0.7 mg/dL (0.0-1.0); Total Protein 8.2 g/dL (6.5-8.0)
[2024-11-30 01:28] LABS: FIB-ALT 143 U/L (6-29); FIB-Alpha-2-Macroglobulin 164 mg/dL (106-279); FIB-Apolipoprotein A1 227 mg/dL (101-198); FIB-GGT 1488 U/L (3-65); FIB-Haptoglobin 170 mg/dL (43-212); FIB-Total Bilirubin 0.6 mg/dL (0.2-1.2); Liver Fibrosis Score 0.35; Liver Fibrosis Stage F1-F2; Nec Inflam Act Grade A3; Nec Inflam Act Score 0.72; Reference ID 5502691
== END 2024-11-23 09:49 | disposition home or self-care (01) ==
LOC: HO.HMGCLDS 09:48
PROVIDERS: PCP Internal Medicine; Visit Provider Internal Medicine
DX: R74.8 Abnormal levels of other serum enzymes (principal); K76.0 Fatty (change of) liver, not elsewhere classified
CPT/HCPCS: 36415; 80076; 81596; 85025; 85610; 85730

== ENCOUNTER 2024-11-25 12:10 | Day surgery (SDC) | payer MEDICARE, MEDICAID, SELFPAY ==
[2024-11-25] VITALS (20 sets, daily range): BP systolic 90–140; BP diastolic 49–68; PULSE 66–93; RESP 12–18; TEMP 36.6–37.2; O2SAT 94–99; BMI 28.5
--- NOTE | ~2024-11-25 | US_ITS ---
Ultrasound-guided liver biopsy History: Elevated LFTs Procedure: Ultrasound-guided liver biopsy Risks and benefits and possible complications were discussed with the patient and consent form was signed. The abdomen was prepped and draped in usual sterile fashion. 1% lidocaine was used for anesthesia. A 17-gauge coaxial needle was inserted through the skin and soft tissues and into the right lobe of the liver. A total of 3, 18-gauge cores were performed. Permanent ultrasound images were archived. Gelfoam slurry admistered through the coaxial into the biopsy tract and at the level of the capsule. The needle was then removed. The specimens were placed in formalin and sent to pathology. The patient tolerated the procedure well. The procedure was performed under moderate sedation with a dedicated nurse for monitoring of vital signs using Versed, and Fentanyl. Moderate sedation time: 15 min US/US biopsy liver Impression: Ultrasound-guided liver biopsy Electronically signed by: Branden Pimentel MD 11/25/2024 04:26 PM EDT
[2024-11-25 13:21] LABS: MANUAL DIFF FLAG NO
[2024-11-25 13:27] LABS: Basophils Absolute Auto 0.1 X10*3/uL (0.0-0.2); Basophils Percent Auto 0.4 % (0-2); Eosinophils Absolute Auto 0.1 X10*3/uL (0.0-0.4); Hematocrit 39.9 % (37.0-47.0); Hemoglobin 13.3 g/dl (12.0-16.0); Imm Gran Abs Auto 0.06 X10*3/uL (0.00-0.03); Imm Gran Pct Auto 0.5 % (0.0-0.4); Lymphocytes Absolute Auto 2.2 X10*3/uL (1.2-4.9); Lymphocytes Percent Auto 17.5 % (20-40); Mean Corpuscular HGB Conc 33.3 g/dl (31.0-35.0); Mean Corpuscular Hemoglobin 30.1 pg (27.0-33.0); Mean Corpuscular Volume 90.3 fL (80.0-98.0); Monocytes Absolute Auto 0.9 X10*3/uL (0.1-1.2); Monocytes Percent Auto 7.3 % (2-11); Neutrophils Percent Auto 73.3 % (45-73); Platelet Count 204 X10*3/uL (160-400); Red Blood Count 4.42 X10*6/uL (4.20-5.50); Red Cell Distribution Width 13.9 % (11.0-16.0); White Blood Count 12.3 X10*3/uL (4.8-10.8)
[2024-11-25 13:28] LABS: Glucose, Whole Blood 123 mg/dL (60-115)
[2024-11-25 13:30] LABS: INTERNATIONAL NORM RATIO 0.9 (0.9-1.1); Prothrombin Time 10.6 SEC (10.9-12.4)
[2024-11-25 13:33] LABS: Partial Thromboplastin Time 32.7 SEC (26.0-36.8)
[2024-11-25 14:03] LABS: Anion Gap 17 (12-20); Blood Urea Nitrogen 21 mg/dL (9-16); Carbon Dioxide 27 mmol/L (22-29); Chloride 101 mmol/L (96-108); Glucose Random 129 mg/dL (60-115); Potassium 5.3 mmol/L (3.3-5.1); Sodium 140 mmol/L (135-145)
[2024-11-25 14:45] LABS: Creatinine Clr Calc Pharmacy 52.4; Estimated Glomerular Filt Rate 57
[2024-11-25] MEDS: Midazolam HCl 2 MG/2 ML VIAL 1 MG IVPUSH ×2 (15:10→15:25)
[2024-11-25] MEDS: fentaNYL citrate/PF 100 MCG/2 ML VIAL 50 MCG IVPUSH ×2 (15:10→15:25)
[2024-11-25] MEDS: HYDROmorphone HCl 0.5 MG/0.5 ML SYRINGE 0.4 MG IVPUSH (16:00)
[2024-11-25] MEDS: Lidocaine HCl 1 % MPF 5 ML VIAL 10 ML SUBCUT (16:06)
== END 2024-11-25 18:30 | disposition home or self-care (01) ==
PROVIDERS: Radiology Diagnostic Radiology; Student in an Organized Health Care Education/Training Program; PCP Internal Medicine; Visit Provider Internal Medicine
DX: R74.01 Elevation of levels of liver transaminase levels (principal); R74.8 Abnormal levels of other serum enzymes; K76.0 Fatty (change of) liver, not elsewhere classified; E10.9 Type 1 diabetes mellitus without complications; I10 Essential (primary) hypertension; E78.5 Hyperlipidemia, unspecified; Z79.4 Long term (current) use of insulin; Z79.899 Other long term (current) drug therapy; Z79.85 Long-term (current) use of injectable non-insulin antidiabetic drugs
CPT/HCPCS: 36415; 47000; 76942; 80048; 82947; 85025; 85610; 85730; 86850; 86900; 86901; 88307; 88313; 99152; J1171; J2003; J2250; J2310; J3010

== ENCOUNTER → 2024-11-25 15:00 | Outpatient (BNV) | payer MEDICARE, MEDICAID, SELFPAY | PROVIDERS: PCP Internal Medicine; Visit Provider Student in an Organized Health Care Education/Training Program | DX: R74.01 Elevation of levels of liver transaminase levels (principal) | CPT/HCPCS: 47000; 76942 ==

== ENCOUNTER 2024-11-27 10:10 | Outpatient (AMB) | payer MEDICARE, MEDICAID, SELFPAY ==
--- NOTE | 2024-11-27 10:12 | A.OFFPC_ITS ---
Vital Signs 11/27/24 10:13 Height 5 ft 3 in Weight 160 lb BMI 28.3 BP 118/64 Blood Pressure Location Rt brachial Position Sitting Pulse 97 Pulse Source Pulse Oximeter Pulse Oximetry (%) 96 Oxygen Delivery Method Room Air Intake Visit Reasons: medicine f/up Sorting And Folding Supervisor Required: No Accompanied by: Self / Same As Patient Allergies duloxetine [From Cymbalta] Allergy (Intermediate, Verified 11/27/24 10:13) Gastrointestinal Upset gabapentin Allergy (Intermediate, Verified 11/27/24 10:13) Gastrointestinal Upset milnacipran [From Savella] Allergy (Intermediate, Verified 11/27/24 10:13) Gastrointestinal Upset naloxegol [Movantik] Allergy (Intermediate, Verified 11/27/24 10:13) Gastrointestinal Upset pregabalin [From Lyrica] Allergy (Intermediate, Verified 11/27/24 10:13) Gastrointestinal Upset Medication List - Last Reconciled 11/27/24 by Tram Darby MD albuterol sulfate 90 mcg/actuation 1 - 2 puffs PO Q4-6H PRN 30 days amlodipine 10 mg PO DAILY 90 days blood sugar diagnostic (Accu-Chek Guide test strips) Test blood sugar 3 times per day blood-glucose meter (FreeStyle Lite Meter kit) patient to check blood sugar 3 times daily blood-glucose meter (OneTouch Ultra2 Meter) Patient to check blood sugar 3 times daily blood-glucose meter (Accu-Chek Guide Me Glucose Meter) test blood sugar three times per day famotidine 40 mg PO BEDTIME fentanyl 50 mcg/hr 1 patch transdermal Q48H 30 days FreeStyle Lite Strips (blood sugar diagnostic) patient to check blood sugar 3 times daily NS insulin glargine-yfgn 30 units subcut DAILY lancets (Accu-Chek Softclix Lancets) Test blood sugar 3 times per day latanoprost 0.005% 1 drp ophthalmic (eye) BEDTIME lisinopril 40 mg PO DAILY 90 days omeprazole 20 mg PO DAILY ondansetron HCl 4 mg PO ONCE PRN 30 days pen needle, diabetic qd pen needle, diabetic qd pen needle, diabetic qd sucralfate (Carafate) 1 g PO BID PRN tizanidine 4 mg PO BEDTIME PRN 90 days Tobacco use date assessed: 10/28/24 Fall risk assessment: No Falls in past year Last assessed Fall Risk: 11/27/24 Dental Screening Dental Screen Date: 10/28/24 HPI medicine f/up HPI Details History - The patient is a 69-year-old female pr esenting with difficulties in managing her diabetes. - The patient has been experiencing poor ly controlled blood sugar levels, with a reported fasting glucose of 220 mg/dL. She mentioned her A1c level as 8.4%. - Her diabetes is noted to be longstandi ng, and she expressed concerns about her sugar being out of control, potentially impacting her kidney function, which has shown signs of compromise, albeit with some improvement from previous months. - The patient reported an increased leve l of generalized nervousness and discomfort, describing a 'weird' feeling in her stomach. - She is also facing issues with elevate d liver enzymes and hyperkalemia, with her potassium levels recorded at 5.3 mEq/L. - She reported experiencing chronic lowe r back pain, which varies in intensity and has been persistent. - There was a liver biopsy conducted rec ently by Dr. Roberts, along with specific labs which are pending - The patient complained of persistent v aginal itching, suspected as due to her diabetes. This has been a recurrent issue that requires ongoing management. I have sent nystatin cream for her, due to status of her liver Diflucan is not a good choice Problem List - Diabetes Mellitus: poorly controlled w ith an A1c of 8.4 - Hypertension - Chronic Lower Back Pain - Vaginal Candidiasis - Elevated Liver Enzymes - Hyperkalemia - Compromised Renal Function Patient Instructions - Monitor blood sugar levels three times daily. - Use the prescribed sliding scale for i nsulin administration. NovoLog sent along with sliding scale - Purchase the recommended glucose machi ne and corresponding strips. - Utilize prescribed nystatin cream regu larly for vaginal itching due to candidiasis. - Avoid heavy lifting due to ongoing sabi k pain. - Report any exacerbation of symptoms to healthcare provider promptly. Review of Systems - General: No fever no chills - Neurological: No headaches no dizziness - Ear nose throat: No sore throat no hearing difficulty no ear pain - Cardiovascular: No syncope, no chest pain, no palpitations - Gastrointestinal: No nausea vomiting or diarrhea - Endocrine: No polyuria polydipsia no heat intolerance - Genitourinary: No dysuria , no blood in urine Physical Exam General: No acute distress HEENT: No acute findings Neck: Supple Respiratory system: Able to talk in full sentences, no audible wheeze Cardiovascular: S1-S2 regular in rate and rhythm Gastrointestinal: Nervous feeling in the stomach Extremities: No new findings PRIVATE ADVISOR: Alert awake oriented x3 motor sensory intact Skin: Normal turgor PFSH Medical History Asthma Hx of irritable bowel syndrome Pain management Narcotic dependence Herniated nucleus pulposus, cervical Hypertension, essential Muscle spasm 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 Mother Stomach cancer Social History Housing: House Are you a primary adult caregiver to a significant other at home: No Do you presently have visiting nurse or other home services: No Alcohol intake: never Patient Tobacco Use Status: Never used Tobacco e-Cigarette/Vaping Use: Never Used service: No Current occupational status: disabled Cognitive needs: No Hearing needs: No Vision needs: Yes Questionnaire Thrive Questionnaire Date Thrive assessed: 09/30/24 I am a: Patient SACHIN-7 AMB Questionnaire SACHIN-7 Date SACHIN - 7 assessed: 08/04/24 Source: Developed by Drs. Tommy Graham, Marnie Ford, Sebastien Vaughn and colleagues, with an educational mayito from [employer]. Physical exam (Primary Care) Vital Signs: Last Vital Signs Pulse 97 11/27/24 10:13 BP 118/64 11/27/24 10:13 Pulse Ox 96 11/27/24 10:13 Oxygen Delivery Method Room Air 11/27/24 10:13 BMI result Body Mass Index 28.3 Tobacco/Smoking Status: Tobacco use Status Tobacco use date assessed 10/28/24 11/27/24 10:16 Patient Tobacco Use Status Never used Tobacco 11/27/24 10:16 e-Cigarette/Vaping Use Never Used 11/27/24 10:16 Thrive Assessment: Date of Thrive Assessment Date Thrive assessed 09/30/24 11/27/24 10:16 Results AMB Hemoglobin A1c AMB Hemoglobin A1c 8.4 % Last Edit by Juve Arevalo CMA on 11/27/24 10: 38 Results Reviewed Results Reviewed: Laboratory Last Values Hgb A1c (Clinic) 8.4 % (4.0-6.0) H 11/27/24 10:38 Coding Level of Care Code Est Pt Level 4 (94359) Complex EM visit Add On G2211 Diagnoses LFT elevation R79.89 Essential hypertension I10 Lipid disorder E78.9 Diabetes 1.5, managed as type 1 E13.9 RUQ abdominal pain R10.11 Right lumbar radiculitis M54.16 Failed back syndrome M96.1 Muscle spasm M62.838 Narcotic dependence F11.20 Assessment & Plan Assessment & Plan (1) LFT elevation: Code(s): R79.89 - Other specified abnormal findings of blood chemistry Category: Medical (2) Essential hypertension: Code(s): I10 - Essential (primary) hypertension Category: Medical (3) Lipid disorder: Code(s): E78.9 - Disorder of lipoprotein metabolism, unspecified Category: Medical (4) Diabetes 1.5, managed as type 1: Comment: taking lantus insulin Code(s): E13.9 - Other specified diabetes mellitus without complications Category: Medical (5) RUQ abdominal pain: Code(s): R10.11 - Right upper quadrant pain Category: Medical (6) Right lumbar radiculitis: Code(s): M54.16 - Radiculopathy, lumbar region Category: Medical (7) Failed back syndrome: Comment: uses fentanyl patch & oxycodone Code(s): M96.1 - Postlaminectomy syndrome, not elsewhere classified Category: Medical (8) Muscle spasm: Code(s): M62.838 - Other muscle spasm Category: Medical (9) Narcotic dependence: Code(s): F11.20 - Opioid dependence, uncomplicated Category: Medical Plan History - The patient is a 69-year-old female presenting with difficulties in managing her diabetes. - The patient has been experiencing poorly controlled blood sugar levels, with a reported fasting glucose of 220 mg/dL. She mentioned her A1c level as 8.4%. - Her diabetes is noted to be longstanding, and she expressed concerns about her sugar being out of control, potentially impacting her kidney function, which has shown signs of compromise, albeit with some improvement from previous months. - The patient reported an increased level of generalized nervousness and discomfort, describing a 'weird' feeling in her stomach. - She is also facing issues with elevated liver enzymes and hyperkalemia, with her potassium levels recorded at 5.3 mEq/L. - She reported experiencing chronic lower back pain, which varies in intensity and has been persistent. - There was a liver biopsy conducted recently by Dr. Roberts, along with specific labs which are pending - The patient complained of persistent vaginal itching, suspected as due to her diabetes. This has been a recurrent issue that requires ongoing management. I have sent nystatin cream for her, due to status of her liver Diflucan is not a good choice Problem List - Diabetes Mellitus: poorly controlled with an A1c of 8.4 - Hypertension - Chronic Lower Back Pain - Vaginal Candidiasis - Elevated Liver Enzymes - Hyperkalemia - Compromised Renal Function Patient Instructions - Monitor blood sugar levels three times daily. - Use the prescribed sliding scale for insulin administration. NovoLog sent along with sliding scale - Purchase the recommended glucose machine and corresponding strips. - Utilize prescribed nystatin cream regularly for vaginal itching due to candidiasis. - Avoid heavy lifting due to ongoing back pain. - Report any exacerbation of symptoms to healthcare provider promptly. Orders: Orders AMB Hemoglobin A1c Today Z13.9 - Encounter for screening, unspecified Medications: New insulin aspart U-100 (Novolog U-100 Insulin aspart) 10 units (0.1 mL) subcut TID 90 days 27 mL 0RF nystatin 1 appl topical DAILY 30 days 30 grams 1RF insulin glargine U-300 conc (Toujeo SoloStar U-300 Insulin) 40 units (0.1333 mL) subcut DAILY 90 days 11.997 mL 0RF Refilled blood sugar diagnostic (Accu-Chek Guide test strips) Test blood sugar 3 times per day 100 ea 2RF E13.9 - Other specified diabetes mellitus without complications fentanyl 50 mcg/hr 1 patch transdermal Q48H 30 days 15 ea 0RF F11.20 - Opioid dependence, uncomplicated, M50.20 - Other cervical disc displacement, unspecified cervical region, M96.1 - Postlaminectomy syndrome, not elsewhere cl assified, R52 - Pain, unspecified
[2024-11-27 10:13] VITALS: BP 118/64; PULSE 97; O2SAT 96; BMI 28.3
--- OUTSIDE RECORDS SUMMARY | 2024-11-27 10:25 | XMS_ITS ---
Author Organization [facility] Address [address] [place] [address] Care Team Providers Care Animal Cop Name Role Phone Wilner GONSALES, [facility] Primary [facility] Provider Tommy Almonte [phone] Allergies Allergen (clinical drug ingredient) Drug/Non Drug [...] 11/13/2024 Encounters Encounter Location Date Provider Diagnosis [facility] [address] [place] [address] 11/13/2024 Tommy Roberts Elevated liver enzymes R74.8 [...] again for allowing me to participate in Sydea's care. I shall continue to keep you [...] Provider Name:Tommy Roberts , 04/14/2025 01:20:00 PM, [address] [place] [address], [address], [place], [address], Progress Notes * SYEDA DOLL MDOB:1955 (68 yo F)Acc No.[id number]:11/13/2024 Progress Notes Patient:?SYEDA DOLL Provider:?Tommy Roberts MD :1955???Age:68 Y???Sex:Female D ate:11/13/2024 Address:[address] [place], [place] [id number] Pcp:Tram Darby MD Subjective: * Chief Complaints: [...] Procedure Codes:?3017F COLOR ECTAL CA SCREEN DOC FIX2338I TOBACCO NON-[id number] BP SCR NOT PRFRM REC REASON NOS * Preventive Medicine:? ??Counseling:?Care goal follow-up plan:?Above Normal BMI Follow-up?Dietary management education, guidance, and counseling,?BMI management provided?Yes.? ??Urinary Incontinence:?Urinary Incontinence?Assessment:?Absent,?Plan of care documented:?No, reason not specified.? ??Screenings:?Fall Risk Screening?Fall Risk Assessment:?No falls in the past year,?Screening:?No falls in the past year,?Assessment:?Not performed, no reason specified,?Plan of Care:?Not documented, no reason specified.? * Follow Up:?2024 * * Sign off status: Completed true * Provider:?Tommy Roberts MD Date:? 025 Generated for Zohreh arzate/Jasper/eTaustinsmitting on:?11/27/2024 10:24 AM EDT History and Physical Notes * [...]
== END 2024-11-27 10:46 | disposition home or self-care (01) ==
LOC: HO.HMCC 10:10
PROVIDERS: PCP Internal Medicine; Visit Provider Internal Medicine
DX: R79.89 Other specified abnormal findings of blood chemistry (principal); E13.9 Other specified diabetes mellitus without complications; F11.20 Opioid dependence, uncomplicated; I10 Essential (primary) hypertension; E78.9 Disorder of lipoprotein metabolism, unspecified; R10.11 Right upper quadrant pain; M54.16 Radiculopathy, lumbar region; M96.1 Postlaminectomy syndrome, not elsewhere classified; M62.838 Other muscle spasm

== ENCOUNTER → 2024-11-27 10:10 | Outpatient (BNVA) | payer MEDICARE, MEDICAID, SELFPAY | PROVIDERS: PCP Internal Medicine; Visit Provider Internal Medicine | DX: R79.89 Other specified abnormal findings of blood chemistry (principal); R78.9 Finding of unspecified substance, not normally found in blood; I10 Essential (primary) hypertension; E13.9 Other specified diabetes mellitus without complications; R10.11 Right upper quadrant pain; M54.16 Radiculopathy, lumbar region; M96.1 Postlaminectomy syndrome, not elsewhere classified; M62.838 Other muscle spasm; F11.20 Opioid dependence, uncomplicated | CPT/HCPCS: 83036; 99212 ==

== ENCOUNTER 2024-12-01 14:24 | Outpatient (AMB) | payer MEDICARE, MEDICAID, SELFPAY ==
--- OUTSIDE RECORDS SUMMARY | 2024-12-01 14:28 | XMS_ITS ---
Author Organization [facility] Address [address] [place] [address] Care Team Providers Care Pipeline Superintendent Name Role Phone Wilner GONSALES, [facility] Primary [facility] Provider Tommy Almonte [phone] Allergies Allergen (clinical drug ingredient) Drug/Non Drug [...] 11/13/2024 Encounters Encounter Location Date Provider Diagnosis [facility] [address] [place] [address] 11/13/2024 Tommy Roberts Elevated liver enzymes R74.8 [...] Follow Up: 2024, Jayla n: Provider Name:Tommy Rboerts , 04/14/2025 01:20:00 PM, [address] [place] [address], [address], [place], [address], Progress Notes * SYEDA DOLL MDOB:1955 (68 yo F)Acc No.[id number]:11/13/2024 Progress Notes Patient:?SYEDA DOLL Provider:?Tommy Roberts MD :1955???Age:68 Y???Sex:Female D ate:11/13/2024 Address:[address] [place], [place] [id number] Pcp:Tram Darby MD Subjective: * Chief Complaints: [...] Procedure Codes:?3017F COLOR ECTAL CA SCREEN DOC [id number] TOBACCO NON-[id number] BP SCR NOT PRFRM REC REASON NOS [...] MD Date:? 025 Generated for Zohreh arzate/Jasper/eTaustinsmitting on:?12/01/2024 02:28 PM EDT History and Physical Notes * [...]
[2024-12-01 14:38] VITALS: BP 114/62; PULSE 97; BMI 28.5
--- NOTE | 2024-12-01 14:38 | A.OFFVIS_ITS ---
Vital Signs 12/01/24 14:38 Height 5 ft 3 in Weight 160 lb 14.999 oz BMI 28.5 BP 114/62 Blood Pressure Location Lt brachial Position Sitting Pulse 97 Pulse Source Pulse Oximeter Intake Visit Reasons: F/U s/p CT/testing r/s 10-12-24 Wolf Hunter Required: No Allergies duloxetine [From Cymbalta] Allergy (Intermediate, Verified 12/01/24 14:41) Gastrointestinal Upset gabapentin Allergy (Intermediate, Verified 12/01/24 14:41) Gastrointestinal Upset milnacipran [From Savella] Allergy (Intermediate, Verified 12/01/24 14:41) Gastrointestinal Upset naloxegol [Movantik] Allergy (Intermediate, Verified 12/01/24 14:41) Gastrointestinal Upset pregabalin [From Lyrica] Allergy (Intermediate, Verified 12/01/24 14:41) Gastrointestinal Upset Medication List - Last Reconciled 12/01/24 by Ron Morgan MD albuterol sulfate 90 mcg/actuation 1 - 2 puffs PO Q4-6H PRN 30 days amlodipine 10 mg PO DAILY 90 days blood sugar diagnostic (Accu-Chek Guide test strips) Test blood sugar 3 times per day blood-glucose meter (FreeStyle Lite Meter kit) patient to check blood sugar 3 times daily blood-glucose meter (OneTouch Ultra2 Meter) Patient to check blood sugar 3 times daily blood-glucose meter (Accu-Chek Guide Me Glucose Meter) test blood sugar three times per day famotidine 40 mg PO BEDTIME fentanyl 50 mcg/hr 1 patch transdermal Q48H 30 days FreeStyle Lite Strips (blood sugar diagnostic) patient to check blood sugar 3 times daily NS insulin aspart U-100 (Novolog U-100 Insulin aspart) 10 units (0.1 mL) subcut TID 90 days insulin glargine U-300 conc (Toujeo SoloStar U-300 Insulin) 40 units (0.1333 mL) subcut DAILY 90 days insulin glargine-yfgn 30 units subcut DAILY lancets (Accu-Chek Softclix Lancets) Test blood sugar 3 times per day latanoprost 0.005% 1 drp ophthalmic (eye) BEDTIME lisinopril 40 mg PO DAILY 90 days nystatin 1 appl topical DAILY 30 days omeprazole 20 mg PO DAILY ondansetron HCl 4 mg PO ONCE PRN 30 days pen needle, diabetic qd pen needle, diabetic qd pen needle, diabetic qd sucralfate (Carafate) 1 g PO BID PRN tizanidine 4 mg PO BEDTIME PRN 90 days HPI Comments Details: Syeda returns for follow-up. Previously, seen regarding symptoms including chest discomfort/palpitations. Has a history of diabetes, hypertension, dyslipidemia. She also has a history of abnormal LFTs of uncertain nature. Being worked up for the same. From the cardiac standpoint, she has got undergone a comprehensive workup including echocardiogram, Holter and coronary CTA. Overall, she states she is improved now. For the most part, she feels fine. [facility] Medical History Asthma Hx of irritable bowel syndrome Pain management Narcotic dependence Herniated nucleus pulposus, cervical Hypertension, essential Muscle spasm 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 Mother Stomach cancer Social History Housing: House Are you a primary client care representative to a significant other at home: No Do you presently have visiting nurse or other home services: No Alcohol intake: never Patient Tobacco Use Status: Never used Tobacco e-Cigarette/Vaping Use: Never Used service: No Current occupational status: disabled Cognitive needs: No Hearing needs: No Vision needs: Yes Review of Systems ENT Reports dizziness Card Denies chest pain, Denies chest pain at rest, Denies chest pain with activity, Denies rapid heart rate, Denies pedal edema, Denies edema, Denies leg edema, Denies lightheadedness, Denies palpitations, Denies dyspnea, Denies dyspnea on exertion and Denies orthopnea Resp Denies cough, Denies dyspnea and Denies dyspnea on exertion GI Denies hematochezia and Denies change in stool character Musc Denies abnormal gait, Reports limited range of motion, Reports muscle cramps, Denies muscle weakness, Denies numbness, Denies radiating pain into limb, Denies stiffness and Denies tingling Neuro Denies abnormal gait, Reports dizziness, Denies numbness and Denies tingling Endo Denies palpitations Physical Exam Vital Signs: Last Vital Signs Pulse 97 12/01/24 14:38 BP 114/62 12/01/24 14:38 BMI result Body Mass Index 28.5 Const General: comfortable and no acute distress Orientation/consciousness: patient oriented x3 HEENT Other: Unremarkable Head: Yes normal to inspection Neck Neck: Yes normal visual inspection Chest Chest palpation & inspection: normal inspection of the chest Resp Auscultation: clear to auscultation bilaterally Cardio Palpation: normal PMI Heart sounds: S1 normal heart sound present, S2 normal heart sound present, no gallops, no murmurs and no rubs GI Palpation (GI): Soft to palpation Back/Spine/Pelvis Other: unremarkable Skin General skin exam: no rashes or lesions noted Neuro General: patient oriented x3 Extrem General: Yes normal to inspection Psych Mental Status: mental status grossly normal Assessment & Plan Assessment & Plan (1) Chest discomfort: Code(s): R07.89 - Other chest pain Category: Medical (2) Palpitations: Code(s): R00.2 - Palpitations Category: Medical (3) Diabetes 1.5, managed as type 1: Comment: taking lantus insulin Code(s): E13.9 - Other specified diabetes mellitus without complications Category: Medical (4) Other and unspecified hyperlipidemia: Code(s): E78.5 - Hyperlipidemia, unspecified Category: Medical (5) LFT elevation: Code(s): R79.89 - Other specified abnormal findings of blood chemistry Category: Medical Plan Cardiac studies reviewed. In the echocardiogram, LVEF 55-60%. No significant valvular findings and otherwise unremarkable. In the coronary CTA, no hemodynamically significant coronary disease. Small calcification in the LAD origin but no significant stenosis. In the Holter, underlying rhythm is sinus with an average rate of 85/Min. Very rare PACs/PVCs. Overall, based on the above, no clear cardiac etiology for her symptoms. Mainly reassurance. With regard to lipids, LDL levels have been quite high-160s to more than 200mg/dl. Most recently, 129 mg/dL. She cannot take statins as LFTs are quite high. Hence we discussed other options including Repatha and she is willing to consider. Prescription sent for the same. If she indeed starts taking it, recheck lipids in about 3 months or so. Medications: New evolocumab (Repatha Luis Miguel) 140 mg subcut Q2W 2 mL 5RF Coding Level of Care Code Est Pt Level 3 (93136) Diagnoses Chest discomfort R07.89 Palpitations R00.2 Diabetes 1.5, managed as type 1 E13.9 Other and unspecified hyperlipidemia E78.5 LFT elevation R79.89
== END 2024-12-01 15:01 | disposition home or self-care (01) ==
PROVIDERS: PCP Internal Medicine; Visit Provider Internal Medicine
DX: R07.89 Other chest pain (principal); R00.2 Palpitations; E13.9 Other specified diabetes mellitus without complications; E78.5 Hyperlipidemia, unspecified; R79.89 Other specified abnormal findings of blood chemistry
CPT/HCPCS: 99213

== ENCOUNTER → 2024-12-01 14:24 | Outpatient (BNVA) | payer MEDICARE, MEDICAID, SELFPAY | PROVIDERS: PCP Internal Medicine; Visit Provider Internal Medicine | DX: R07.89 Other chest pain (principal); R00.2 Palpitations; R79.89 Other specified abnormal findings of blood chemistry; E13.9 Other specified diabetes mellitus without complications; E78.5 Hyperlipidemia, unspecified | CPT/HCPCS: 99212 ==

== ENCOUNTER 2025-01-01 10:51 | Outpatient (AMB) | payer MEDICARE, MEDICAID, SELFPAY ==
[2025-01-01 10:57] VITALS: BP 114/68; PULSE 77; TEMP 36.5; O2SAT 97; BMI 28.9
--- NOTE | 2025-01-01 10:57 | MHC.PC.OV ---
Vital Signs 01/01/25 10:57 Height 5 ft 3 in Weight 163 lb 2 oz BMI 28.9 BP 114/68 Blood Pressure Location Lt brachial Position Sitting Pulse 77 Pulse Source Pulse Oximeter Temp 97.7 F Temp Source Temporal Artery Scan Pulse Oximetry (%) 97 Oxygen Delivery Method Room Air Intake Visit Reasons: 1 month f/up Allergies duloxetine (From Cymbalta) Allergy (Intermediate, Verified 01/01/25 10:59) Gastrointestinal Upset gabapentin Allergy (Intermediate, Verified 01/01/25 10:59) Gastrointestinal Upset milnacipran (From Savella) Allergy (Intermediate, Verified 01/01/25 10:59) Gastrointestinal Upset naloxegol (Movantik) Allergy (Intermediate, Verified 01/01/25 10:59) Gastrointestinal Upset pregabalin (From Lyrica) Allergy (Intermediate, Verified 01/01/25 10:59) Gastrointestinal Upset Medication List - Last Reconciled 01/01/25 by Tram Darby MD albuterol sulfate 90 mcg/actuation 1 - 2 puffs PO Q4-6H PRN 30 days amlodipine 10 mg PO DAILY 90 days blood sugar diagnostic (Accu-Chek Guide test strips) Test blood sugar 3 times per day blood-glucose meter (FreeStyle Lite Meter kit) patient to check blood sugar 3 times daily blood-glucose meter (OneTouch Ultra2 Meter) Patient to check blood sugar 3 times daily blood-glucose meter (Accu-Chek Guide Me Glucose Meter) test blood sugar three times per day evolocumab (Repatha SureClick) 140 mg subcut Q2W famotidine 40 mg PO BEDTIME fentanyl 50 mcg/hr 1 patch transdermal Q48H 30 days FreeStyle Lite Strips (blood sugar diagnostic) patient to check blood sugar 3 times daily NS insulin aspart U-100 (Novolog U-100 Insulin aspart) 10 units (0.1 mL) subcut TID 90 days insulin glargine U-300 conc (Toujeo SoloStar U-300 Insulin) 40 units (0.1333 mL) subcut DAILY 90 days insulin glargine-yfgn 30 units subcut DAILY lancets (Accu-Chek Softclix Lancets) Test blood sugar 3 times per day latanoprost 0.005% 1 drp ophthalmic (eye) BEDTIME lisinopril 40 mg PO DAILY 90 days nystatin 1 appl topical DAILY 30 days omeprazole 20 mg PO DAILY ondansetron HCl 4 mg PO ONCE PRN 30 days pen needle, diabetic qd pen needle, diabetic qd pen needle, diabetic qd sucralfate (Carafate) 1 g PO BID PRN tizanidine 4 mg PO BEDTIME PRN 90 days Tobacco use date assessed: 01/01/25 Fall risk assessment: No Falls in past year Last assessed Fall Risk: 01/01/25 Dental Screening Dental Screen Date: 01/01/25 Did you have a dental visit in the last 12 months?: Yes Did you have a dental problem in the last 6 months where you did not have access to dental care?: No Was dental information given to patient?: Patient has dentist HPI 1 month f/up HPI Details History - The patient is a 69-year-old female presenting with liver inflammation, hypercholesterolemia, diabetes mellitus, and chronic back pain. This is an ongoing care - Liver inflammation: The patient reports a history of liver inflammation with mild fibrosis noted on biopsy. She was prescribed medication for inflammation but experienced adverse effects such as headaches and body pain, leading to discontinuation. Patient is under care of Gastroenterology Dr. Roberts - Hypercholesterolemia: The patient is receiving subcutaneous injections of Ivolocumab every two weeks for high cholesterol. She reports experiencing side effects similar to cold symptoms. These are through Cardiology - Diabetes mellitus: The patient reports fluctuating blood glucose levels, with a recent low of 51 mg/dL. She is under the care of an health promotion coordinator for management. - Chronic back pain: The patient experiences persistent lower back pain radiating to the hips and legs. She has a history of back surgery and reports variable pain intensity. Taking chronic narcotic medication in the form of fentanyl patch Patient is complying with the treatment plan no signs of abuse pain contract up-to-date Patient is having periodic urine toxicology screening Problem List - Liver inflammation - Hypercholesterolemia - Diabetes mellitus - Chronic back pain secondary to failed back syndrome Patient Instructions - Contact Dr. Roberts to discuss medication side effects and possible alternatives. - Schedule a follow-up appointment with the health promotion coordinator to address fluctuating blood sugar levels. - Continue monitoring blood glucose levels and report any significant changes. - Follow up with the marriage and family teacher regarding cholesterol management and side effects of Imvalo Q-Mab. Review of Systems - General: No fever no chills - Neurological: No headaches no dizziness - Ear nose throat: No sore throat no hearing difficulty no ear pain - Cardiovascular: No syncope, no chest pain, no palpitations - Gastrointestinal: No diarrhea Physical Exam - General: No acute distress - HEENT: No acute findings - Neck: Supple - Respiratory system: Able to talk in full sentences, no audible wheeze - Cardiovascular: S1-S2 regular in rate and rhythm - Gastrointestinal: No pain - Extremities: No new findings - HAND DRY CLEANER: Alert awake oriented x3 motor sensory intact - Skin: Normal turgor PFSH Medical History Asthma Hx of irritable bowel syndrome Pain management Narcotic dependence Herniated nucleus pulposus, cervical Hypertension, essential Muscle spasm 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 Mother Stomach cancer Social History Housing: House Are you a primary child care leader to a significant other at home: No Do you presently have visiting nurse or other home services: No Alcohol intake: never Patient Tobacco Use Status: Never used Tobacco e-Cigarette/Vaping Use: Never Used service: No Current occupational status: disabled Cognitive needs: No Hearing needs: No Vision needs: Yes Questionnaire PHQ-9 Over the last 2 weeks, how often have you been bothered by any of the following problems? [id number] - PHQ-9 Billing: Patient declined-do not bill Source: Developed by Drs. Tommy Graham, Marnie Ford, Sebastien Vaughn and colleagues, with an educational mayito from [employer]. Thrive Questionnaire Date Thrive assessed: 01/01/25 I am a: Patient What is your living situation today?: I have a steady place to live Within the past 12 months, did the food you bought not last and you didn't have the money to get more?: Never true Within the past 12 months, did you worry whether your food would run out before you got money to buy more?: Never true Do you have trouble paying for medicines?: No Do you have trouble getting transportation to medical appointments?: No Do you have trouble paying your heating and electricity bill?: No Do you have trouble taking care of your child, family member or friend?: No Do you have trouble with day-to-day activities such as bathing, preparing meals, shopping, managing finances, etc.?: No Are you currently unemployed and looking for a job?: No Are you interested in more education?: No Please select the resources that you would like help with: None Currently or been in a relationship where the following occur: No concerns reported THRIVE Score: 0 AUDIT C Alcohol Use Questionnaire (AUDIT-C) 1. How often do you have a drink containing alcohol?: Never 3. How often do you have six or more drinks on one occasion?: Never Total Score: 0 Score Reviewed/Action Taken: Yes SACHIN-7 AMB Questionnaire SACHIN-7 Date SACHIN - 7 assessed: 01/01/25 Feeling nervous, anxious, or on edge: 0 = Not at all Not being able to stop or control worryin = Not at all Worrying too much about different things: 0 = Not at all Trouble relaxin = Not at all Being so restless that it is hard to sit still: 0 = Not at all Becoming easily annoyed or irritable: 0 = Not at all Feeling afraid as if something awful might happen: 0 = Not at all Total SACHIN-7 score (0-4 normal; 5-9 mild; 10-14 moderate; 15-21 severe): 0 Source: Developed by Drs. Tommy Graham, Marnie Ford, Sebastien Vaughn and colleagues, with an educational mayito from [employer]. Physical exam (Primary Care) Vital Signs: Last Vital Signs Temp 97.7 F 01/01/25 10:57 Pulse 77 01/01/25 10:57 BP 114/68 01/01/25 10:57 Pulse Ox 97 01/01/25 10:57 Oxygen Delivery Method Room Air 01/01/25 10:57 BMI result Body Mass Index 28.9 Tobacco/Smoking Status: Tobacco use Status Tobacco use date assessed 01/01/25 01/01/25 11:01 Patient Tobacco Use Status Never used Tobacco 01/01/25 10:57 e-Cigarette/Vaping Use Never Used 01/01/25 10:57 Thrive Assessment: Date of Thrive Assessment Date Thrive assessed 01/01/25 01/01/25 11:01 Currently or been in a relationship where the following occur: No concerns reported Coding Level of Care Code Est Pt Level 4 (27450) Complex EM visit Add On G2211 Diagnoses Diabetes 1.5, managed as type 1 E13.9 long-term (current) use of insulin Z79.4 LFT elevation R79.89 Essential hypertension I10 Lipid disorder E78.9 Right lumbar radiculitis M54.16 Failed back syndrome M96.1 Muscle spasm M62.838 Narcotic dependence F11.20 Assessment & Plan Assessment & Plan (1) Diabetes 1.5, managed as type 1: Comment: taking lantus insulin Code(s): E13.9 - Other specified diabetes mellitus without complications Category: Medical (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: Code(s): Z79.4 - long-term (current) use of insulin Category: Medical (3) LFT elevation: Code(s): R79.89 - Other specified abnormal findings of blood chemistry Category: Medical (4) Essential hypertension: Code(s): I10 - Essential (primary) hypertension Category: Medical (5) Lipid disorder: Code(s): E78.9 - Disorder of lipoprotein metabolism, unspecified Category: Medical (6) Right lumbar radiculitis: Code(s): M54.16 - Radiculopathy, lumbar region Category: Medical (7) Failed back syndrome: Comment: uses fentanyl patch & oxycodone Code(s): M96.1 - Postlaminectomy syndrome, not elsewhere classified Category: Medical (8) Muscle spasm: Code(s): M62.838 - Other muscle spasm Category: Medical (9) Narcotic dependence: Code(s): F11.20 - Opioid dependence, uncomplicated Category: Medical Plan History - The patient is a 69-year-old female presenting with liver inflammation, hypercholesterolemia, diabetes mellitus, and chronic back pain. This is an ongoing care - Liver inflammation: The patient reports a history of liver inflammation with mild fibrosis noted on biopsy. She was prescribed medication for inflammation but experienced adverse effects such as headaches and body pain, leading to discontinuation. Patient is under care of Gastroenterology Dr. Roberts - Hypercholesterolemia: The patient is receiving subcutaneous injections of Ivolocumab every two weeks for high cholesterol. She reports experiencing side effects similar to cold symptoms. These are through Cardiology - Diabetes mellitus: The patient reports fluctuating blood glucose levels, with a recent low of 51 mg/dL. She is under the care of an health promotion coordinator for management. - Chronic back pain: The patient experiences persistent lower back pain radiating to the hips and legs. She has a history of back surgery and reports variable pain intensity. Taking chronic narcotic medication in the form of fentanyl patch Patient is complying with the treatment plan no signs of abuse pain contract up-to-date Patient is having periodic urine toxicology screening Problem List - Liver inflammation - Hypercholesterolemia - Diabetes mellitus - Chronic back pain secondary to failed back syndrome Patient Instructions - Contact Dr. Roberts to discuss medication side effects and possible alternatives. - Schedule a follow-up appointment with the health promotion coordinator to address fluctuating blood sugar levels. - Continue monitoring blood glucose levels and report any significant changes. - Follow up with the marriage and family teacher regarding cholesterol management and side effects of Imvalo Q-Mab. Orders: Referrals Endocrinology Referral E13.9 - Other specified diabetes mellitus without complications, Z79.4 - long-term (current) use of insulin Medications: Refilled fentanyl 50 mcg/hr 1 patch transdermal Q48H 15 ea 0RF 30 days F11.20 - Opioid dependence, uncomplicated, M50.20 - Other cervical disc displacement, unspecified cervical region, M96.1 - Postlaminectomy syndrome, not elsewhere classified, R52 - Pain, unspecified
--- OUTSIDE RECORDS SUMMARY | 2025-01-01 11:58 | XMS_ITS | Patient Health Record ---
Author Organization [facility] Address [address] [place] [address] Care Team Providers Care Supervisory It Specialist Name Role Phone Wilner GONSALES, Asma Primary Care Provider Tommy Almonte [phone] Allergies Allergen (clinical drug ingredient) Drug/Non Drug Allergy documented on EMR Reaction Allergy Type Onset Date Status naloxegol Movantik Unknown Drug Allergy Active Results Component Value Reference Range Notes Liver Panel (Not yet reviewe d by provider) Interpretation: Performing Lab:[facility], [address] [place] [phone] Notes/Report: Bilirubin Total 0.5 0.0-1.0 mg/dL Bilirubin Direct 0.2 0.0-0.5 mg/dL Slight Hem olysis Aspartate Amino Transferase 27 5-31 U/L Slight Hemolysis Alanine Aminotransferase 19 0-31 U/L Total Protein 8.0 6.5-8.0 g/dL Albumin Level 4.0 3.5-5.0 g/dL Alkaline Phosphatase 148 39-117 U/L Other Ref Test - Misc Reviewed date:01/16/2024 07:44:59 PM Interpretation: Performing Lab:[facility], [address] [place] [address] Notes/Report: LIVER KIDNEY MICROSOMAL AB CODE [id number] Other Ref Test - Misc SEE NOTE LKM-1 ANTIBODY (IGG): <=20.0 U Reference Range: <=20.0 Negative 20.1-24.9 Equivocal >=25.0 Positive Anti-liver/kidney microsomal antibodies (Anti-LKM-1) were previously tested by indirect immunofluorescence (IF) using rodent liver/kidney substrate. Identification of a specific antibody target as cytochrome P450 IID6 has led to the current recombinant based JAQULEINE. Antibodies to this cytochrome are present in approximately 70% of patients with autoimmune hepatitis type 2. This antibody is also present in approximately 10% of patients with hepatitis C infection. THIS TEST PERFORMED AT: [employer]/[place] [address] [address] [place] [address] [phone] [employer] YACHT: JAH ROMERO MD, PHD Mitochondrial Antibody Reviewed date:01/16/2024 07:44:22 PM Interpretation: Performing Lab:[facility], [address] [place] [phone] Notes/Report: Mitochondrial Antibodies NEGATIVE NEGATIVE THIS TEST WAS PERFORMED AT: [facility] [address] [address] GRACE WHITMORE MD Mitochondrial Ab Titer TNP Complete Blood Count Auto Di ff Reviewed date:11/23/2024 06:53:58 PM Interpretation: Performing Lab:[facility], [address] [place] [phone] Notes/Report: White Blood Count 8.3 4.8-10.8 X10*3/uL Red Blood Count 4.37 4.20-5.50 X10*6/uL Hemoglobin 13.0 12.0-16.0 g/dl Hematocrit 40.1 37.0-47.0 % Mean Corpuscular Volume 91.8 80.0-98.0 fL Mean Corpuscular Hemoglobin 29.7 27.0-33.0 pg Mean Corpuscular HGB Conc 32.4 31.0-35.0 g/dl Red Cell Distribution Width 14.0 11.0-16.0 % Platelet Count 106 160-400 X10*3/uL Mean Platelet Volume 12.9 9.4-12.3 fL Neutrophils Percent Auto 74.1 45-73 % Imm Gran Pct Auto 0.4 0.0-0.4 % Lymphocytes Percent Auto 18.0 20-40 % Monocytes Percent Auto 6.5 2-11 % Eosinophils Percent Auto 0.6 0-4 % Basophils Percent Auto 0.4 0-2 % NRBC Pct Auto 0.0 0.0-0.2 /100WBC Neutrophils Absolute Auto 6.2 2.0-8.3 x10*3/u L Imm Gran Abs Auto 0.03 0.00-0.03 X10*3/uL Lymphocytes Absolute Auto 1.5 1.2-4.9 X10*3/u L Monocytes Absolute Auto 0.5 0.1-1.2 X10*3/uL Eosinophils Absolute Auto 0.1 0.0-0.4 X10*3/u L Basophils Absolute Auto 0.0 0.0-0.2 X10*3/uL NRBC Abs Auto 0.000 0.0-0.012 X10*3/uL Prothrombin Time INR Reviewed date:11/23/2024 06:54:18 PM Interpretation: Performing Lab:[address] [address] Notes/Report: Prothrombin Time 10.7 10.9-12.4 SEC INTERNATIONAL NORM RATIO 0.9 0.9-1.1 INTERNATIONAL NORMALIZED RATIO (INR) REFERENCE RANGES Reference Range For patients not on anticoagulant therapy: 0.9 - 1.1 INR ranges for oral anticoagulant therapy: For prevention and treatment of venous thrombosis and pulmonary embolism: 2.0 - 3.0 For acute myocardial infarction with aspirin therapy: 2.0 - 3.0 For acute myocardial infarction without aspirin therapy: 3.0 - 4.0 For patients with mechanical prosthetic heart valves: 2.5 - 3.5 Partial Thromboplastin Time Reviewed date:11/23/2024 06:54:09 PM Interpretation: Performing Lab:[address] [address] Notes/Report: Partial Thromboplastin Time 32.4 26.0-36.8 SEC For information regarding the monitoring of direct thrombin inhibitors, please refer to Pharmacy. Liver Panel Reviewed date:2024 10:00:04 PM Interpretation: Performing Lab:[address] [phone] Notes/Report: Bilirubin Total 0.7 0.0-1.0 mg/dL Bilirubin Direct 0.3 0.0-0.5 mg/dL Aspartate Amino Transferase 110 5-31 U/L Alanine Aminotransferase 189 0-31 U/L Total Protein 8.2 6.5-8.0 g/dL Albumin Level 4.1 3.5-5.0 g/dL Alkaline Phosphatase 406 39-117 U/L Liver Fibrosis Pnl Reviewed date:11/30/2024 06:17:11 PM Interpretation: Performing Lab:[facility], [address] [place] [phone] Notes/Report: Liver Fibrosis Score 0.35 Liver Fibrosis Stage F1-F2 Liver Fibrosis Interpretation SEE NOTE minimal fibrosis [...] F4 (severe fibrosis) Nec Inflam Act Score 0.72 Nec Inflam Act Grade A3 Nec Inflam Act Interpretation SEE NOTE severe activity ActiTest Score (a) Metavir Score a>=0 and a<=0.17 : A0 (no activity) a>0.17 and a<=0.29 : A0-A1 (no activity) a>0.29 and a<=0.36 : A1 (minimal activity) a>0.36 and a<=0.52 : A1-A2 (minimal activity) a>0.52 and a<=0.60 : A2 (significant activity) a>0.60 and a<=0.62 : A2-A3 (significant activity) a>0.62 and a<=1.00 : A3 (severe activity) CCF-Flhmz-7-Macroglobulin 164 106-279 mg/dL FIB-Haptoglobin 170 43-212 mg/dL FIB-Apolipoprotein A1 227 101-198 mg/dL FIB-Total Bilirubin 0.6 0.2-1.2 mg/dL FIB-GGT 1488 3-65 U/L FIB-ALT 143 6-29 U/L Reference ID [id number] Footnote SEE NOTE The reliability of results is dependent on compliance with the preanalytical and analytical conditions recommended by [employer]. The tests have to be deferred for: [...] The performance characteristics have been determined by [employer] [facility]. It has not been cleared or approved by the U.S. Food and Drug Administration. Performance characteristics refer to the analytical performance of the test. [employer], the associated logo, [employer] and all associated [employer] dong are the registered trademarks of [employer]. All third constitution party dong - (R) and (TM) - are the property of their respective owners. (C) 1620-8179 [employer]. All rights reserved. THIS TEST WAS PERFORMED AT: [facility] [facility] [place] [address] [place] [address] CRISTINA GIORDANO MD,PHD,PITA Complete Blood Count Auto Di ff Reviewed date:2024 09:08:47 AM Interpretation: Performing Lab:[facility], [address] [place] [phone] Notes/Report: White Blood Count 12.3 4.8-10.8 X10*3/uL Red Blood Count 4.42 4.20-5.50 X10*6/uL Hemoglobin 13.3 12.0-16.0 g/dl Hematocrit 39.9 37.0-47.0 % Mean Corpuscular Volume 90.3 80.0-98.0 fL Mean Corpuscular Hemoglobin 30.1 27.0-33.0 pg Mean Corpuscular HGB Conc 33.3 31.0-35.0 g/dl Red Cell Distribution Width 13.9 11.0-16.0 % Platelet Count 204 160-400 X10*3/uL Mean Platelet Volume 12.0 9.4-12.3 fL Neutrophils Percent Auto 73.3 45-73 % Imm Gran Pct Auto 0.5 0.0-0.4 % Lymphocytes Percent Auto 17.5 20-40 % Monocytes Percent Auto 7.3 2-11 % Eosinophils Percent Auto 1.0 0-4 % Basophils Percent Auto 0.4 0-2 % NRBC Pct Auto 0.0 0.0-0.2 /100WBC Neutrophils Absolute Auto 9.0 2.0-8.3 x10*3/u L Imm Gran Abs Auto 0.06 0.00-0.03 X10*3/uL Lymphocytes Absolute Auto 2.2 1.2-4.9 X10*3/u L Monocytes Absolute Auto 0.9 0.1-1.2 X10*3/uL Eosinophils Absolute Auto 0.1 0.0-0.4 X10*3/u L Basophils Absolute Auto 0.1 0.0-0.2 X10*3/uL NRBC Abs Auto 0.000 0.0-0.012 X10*3/uL Prothrombin Time INR Reviewed date:2024 09:08:33 AM Interpretation: Performing Lab:[address] [address] Notes/Report: Prothrombin Time 10.6 10.9-12.4 SEC INTERNATIONAL NORM RATIO 0.9 0.9-1.1 INTERNATIONAL NORMALIZED RATIO (INR) REFERENCE RANGES Reference Range For patients not on anticoagulant therapy: 0.9 - 1.1 INR ranges for oral anticoagulant therapy: For prevention and treatment of venous thrombosis and pulmonary embolism: 2.0 - 3.0 For acute myocardial infarction with aspirin therapy: 2.0 - 3.0 For acute myocardial infarction without aspirin therapy: 3.0 - 4.0 For patients with mechanical prosthetic heart valves: 2.5 - 3.5 Partial Thromboplastin Time Reviewed date:2024 09:08:25 AM Interpretation: Performing Lab:[address] [address] Notes/Report: Partial Thromboplastin Time 32.7 26.0-36.8 SEC For information regarding the monitoring of direct thrombin inhibitors, please refer to Pharmacy. Basic Metabolic Panel Reviewed date:2024 09:08:12 AM Interpretation: Performing Lab:[facility], [address] [place] [phone] Notes/Report: Sodium 140 135-145 mmol/L Potassium 5.3 3.3-5.1 mmol/L Mild Hemolysi s.Interpret result with caution Chloride 101 96-108 mmol/L Carbon Dioxide 27 22-29 mmol/L Anion Gap 17 12-20 Blood Urea Nitrogen 21 9-16 mg/dL Creatinine 0.97 0.5-1.4 mg/dL Creatinine Clr Calc Pharmacy 52.4 Provided height and weight: 160.02 cm, 73 kg. eGFR (calculated from the MDRD study equation) and eCrCl (calculated from the Cockcroft-Gault equation) are based on different parameters and may not yield comparable results. If eCrCl result is absurd, please check patient's height/weight. Estimated Glomerular Filt Rate 57 Chronic Kidney Disease: Estimated GFR < 60 mL/min/1.73m2 Severe Kidney Disease: Estimated GFR < 15 mL/min/1.73m2 Glucose Random 129 60-115 mg/dL Calcium 10.0 8.4-10.2 mg/dL Glucose, Whole Blood Reviewed date:2024 09:08:54 AM Interpretation: Performing Lab:[facility], [address] [place] [address] Notes/Report: Glucose, Whole Blood 123 60-115 mg/dL METER # : [id number] Pathology (Not yet reviewed by provider) Interpretation: Performing Lab:[facility], [address] [place] [phone] Notes/Report: US biopsy liver Reviewed date:12/03/2024 12:41:31 AM Interpretation: Performing Lab: Notes/Report: [address] [place] [address] Ultrasound Report Signed Patient: Alethea Doll MR#: [id number] : 1955 Acct:[id number] Age/Sex: 68 / F ADM Date: 11/25/24 Loc: HO.SSS Attending Dr: Tommy Roberts MD Ordering Physician: Tommy Roberts MD Date of Service: 11/25/24 Procedure(s): US biopsy liver Accession Number(s): [id number] cc: Tram Darby MD; Tommy Roberts MD Ultrasound-guided liver biopsy History: Elevated LFTs Procedure: Ultrasound-guided liver biopsy Risks and benefits and possible complications were discussed with the patient and consent form was signed. The abdomen was prepped and draped in usual sterile fashion. 1% lidocaine was used for anesthesia. A 17-gauge coaxial needle was inserted through the skin and soft tissues and into the right lobe of the liver. A total of 3, 18-gauge cores were performed. Permanent ultrasound images were archived. Gelfoam slurry admistered through the coaxial into the biopsy tract and at the level of the capsule. The needle was then removed. The specimens were placed in formalin and sent to pathology. The patient tolerated the procedure well. The procedure was performed under moderate sedation with a dedicated nurse for monitoring of vital signs using Versed, and Fentanyl. Moderate sedation time: 15 min US/US biopsy liver Impression: Ultrasound-guided liver biopsy Electronically signed by: Branden Pimentel MD 11/25/2024 04:26 PM EDT Dictated By: Branden Pimentel MD Signed By: <Electronically signed by Branden Pimentel MD in OV> 11/25/24 1626 DD/ 1500 TD/TT: 11/25/24 3605 Bone Worker: Type and Screen Reviewed date:2024 09:08:19 AM Interpretation: Performing Lab:[facility], [address] [place] [phone] Notes/Report: Blood Type OP Antibody Screen NEGATIVE Reason For Referral No Information Medications Medication SIG (Take, Route, Frequency, Duration) Notes Start Date End Date Status Ursodiol 500 MG 1 tablet Orally Twic e a day for 30 days 12/04/2024 Active amLODIPine Besylate 10 MG 1 tablet [...] Status Risk Notes Problem Colon cancer screening (587128184) Colon cancer screening (Z12.11) Active confirmed Problem 085146830 Encounter for screening for malignant neoplasm of colon (Z12.11) Active confirmed Problem 296127181 History of adenomatous polyp of colon (Z86.010) Active confirmed Problem Constipation (05892721) Constipation (K59.00) Active confirmed Problem 321441665 Abdominal bloati ng (R14.0) Active confirmed Problem Early satiety (074142568) Early satiety (R68.81) Active confirmed Problem Elevated liver enzymes level (196597698) Elevated liver function tests (R79.89) Active confirmed Problem 828806153 Elevated liver enzymes (R74.8) Active confirmed Problem Fatty liver (669473910) Fatty liver (K76.0) Active confirmed Problem 518449154 Gastroesophageal reflux disease, esophagitis presence not specified (K21.9) Active confirmed Problem Serum alpha-fetoprote in level elevated (913831310) Elevated alpha fetoprotein (R77.2) Active confirmed Problem 297844149 Abdominal pain, generalized (R10.84) Active confirmed Problem Alkaline phosphatase raised (276495356) Elevated alkaline phosphatase level (R74.8) Active confirmed Problem 44708047 Irritable bowel syndrome, unspecified type (K58.9) Active confirmed Problem 009994387 Abdominal pain, RUQ (right upper quadrant) (R10.11) Active confirmed Problem Abnormal findings diagnostic imaging of liver and biliary tract (484863383) Abnormal ultrasound of biliary tract (R93.2) Active confirmed Vital Signs Temperature 98.6 degrees Fahrenheit 11/13/2024 Blood pressure diastolic 01 mm Hg 11/13/2024 Height 63 in 11/13/2024 Blood pressure systolic 001 mm Hg 11/13/2024 Weight 161 lbs 11/13/2024 BMI 28.52 kg/m2 11/13/2024 Encounters Encounter Location Date Provider Diagnosis [facility] [address] [place] [phone] 11/13/2024 Tommy Roberts Elevated liver enzymes R74.8 and Fatty liver K76.0 [facility] [address] [place] [phone] 11/16/2024 Tommy Roberts [facility] [address] [place] [phone] 12/02/2024 Tommy Roberts Elevated liver function tests R79.89 and Fatty liver K76.0 Assessments Encounter Date Diagnosis (ICD Code) Assessment Notes Treatment Notes Treatment Clinical Notes Section Notes 11/13/2024 Elevated liver enzymes (ICD-10 - R74.8) Overall, Alethea appears well. We did review her significantly [...] me again in the Fall for follow-up. Alethea was comfortable with this plan. Thank you again for allowing me to participate in Alethea's care. I shall continue to keep you advised of her progress.. 12/02/2024 Elevated liver function tests (ICD-10 - R79.89) 12/02/2024 Fatty liver (ICD-10 - K76.0) 11/13/2024 Fatty liver (ICD-10 - K76.0) You need to get better control of the diabetes with medication and diet. That will help your liver. Overall, Alethea appears well. We did review her significantly [...] me again in the Fall for follow-up. Alethea was comfortable with this plan. Thank you again for allowing me to participate in Alethea's care. I shall continue to keep you advised of her progress.. Plan Of Treatment Pending Test Test Name Order Date BUN 09/06/2023 LIVER PROFILE 08/06/2023 LIVER PROFILE 07/03/2018 LIVER PROFILE 11/15/2023 LIVER PROFILE 10/07/2019 LIVER PROFILE 04/20/2020 LIVER PROFILE 10/11/2020 LIVER PROFILE 11/13/2024 LIVER PROFILE 12/02/2024 AMYLASE 10/07/2019 LIPASE 10/07/2019 GGT 08/06/2023 CBC [...] Antibody 11/15/2023 Liver Kidney Microsomal Ab 11/15/2023 Pathology 11/25/2024 US abdomen comp w elastography 4 Future Test Test Name Order Date COLONOSCOPY 10/11/2020 COLONOSCOPY 06/07/2021 Next Appt Details Provider Name:Tommy Alisa Roberts , 04/14/2025 01:20:00 PM, [address], [address], [place], [address], Insurance Providers Payer Name Payer Address Payer Phone Subscriber Number Group Number Insured Name Patient Relationship to Insured Coverage Start Date Coverage End Date MEDICARE OF [employer] [address] [id number] [address] [id number] ALETHEA DOLL Self - patient is the insured 0 MEDICAID OF [facility] [address] [place] [phone] [id number] ALETHEA DOLL Self - patient is the insured Medical (General) History Medical History History ICD Code IDDM Hypertension Denies SC,CVA,Lung disease,renal disease Neg. colonoscopy in 2004 wit [...]
== END 2025-01-01 11:21 | disposition home or self-care (01) ==
LOC: HO.HMCC 10:52
PROVIDERS: PCP Internal Medicine; Visit Provider Internal Medicine
DX: E13.9 Other specified diabetes mellitus without complications (principal); Z79.4 Long term (current) use of insulin; F11.20 Opioid dependence, uncomplicated; R79.89 Other specified abnormal findings of blood chemistry; I10 Essential (primary) hypertension; E78.9 Disorder of lipoprotein metabolism, unspecified; M54.16 Radiculopathy, lumbar region; M96.1 Postlaminectomy syndrome, not elsewhere classified; M62.838 Other muscle spasm

== ENCOUNTER → 2025-01-01 10:51 | Outpatient (BNVA) | payer MEDICARE, MEDICAID, SELFPAY | PROVIDERS: PCP Internal Medicine; Visit Provider Internal Medicine | DX: E13.9 Other specified diabetes mellitus without complications (principal); Z79.4 Long term (current) use of insulin; R79.89 Other specified abnormal findings of blood chemistry; I10 Essential (primary) hypertension; E78.9 Disorder of lipoprotein metabolism, unspecified; M54.16 Radiculopathy, lumbar region; M96.1 Postlaminectomy syndrome, not elsewhere classified; M62.838 Other muscle spasm; F11.20 Opioid dependence, uncomplicated | CPT/HCPCS: 99212 ==

== ENCOUNTER 2025-01-29 13:54 | Outpatient (AMB) | payer MEDICARE, MEDICAID, SELFPAY ==
--- OUTSIDE RECORDS SUMMARY | 2025-01-29 13:57 | XMS_ITS | Patient Health Record ---
Author Organization [facility] Address [address] [place] [address] Care Team Providers Care Tacker Off Name Role Phone Wilner GONSALES, Asma Primary Care Provider Tommy Almonte [phone] Allergies Allergen (clinical drug ingredient) Drug/Non Drug Allergy documented on EMR Reaction Allergy Type Onset Date Status naloxegol Movantik Unknown Drug Allergy Active Results Component Value Reference Range Notes Complete Blood Count Auto Di ff Reviewed date:11/23/2024 06:53:58 PM Interpretation: Performing Lab:[facility], [address] [place] [phone] Notes/Report: White Blood Count 8.3 4.8-10.8 X10*3/uL [...] INR Reviewed date:11/23/2024 06:54:18 PM Interpretation: Performing Lab:[address] [phone] Notes/Report: Prothrombin Time 10.7 10.9-12.4 SEC INTERNATIONAL [...] Time Reviewed date:11/23/2024 06:54:09 PM Interpretation: Performing Lab:[address] [phone] Notes/Report: Partial Thromboplastin Time 32.4 26.0-36.8 SEC For information regarding the monitoring of direct thrombin inhibitors, please refer to Pharmacy. Liver Panel Reviewed date:2024 10:00:04 PM Interpretation: Performing Lab:[address] [address] Notes/Report: Bilirubin Total 0.7 0.0-1.0 mg/dL Bilirubin Direct 0.3 0.0-0.5 mg/dL Aspartate Amino Transferase 110 5-31 U/L Alanine Aminotransferase 189 0-31 U/L Total Protein 8.2 6.5-8.0 g/dL Albumin Level 4.1 3.5-5.0 g/dL Alkaline Phosphatase 406 39-117 U/L Liver Fibrosis Pnl Reviewed date:11/30/2024 06:17:11 PM Interpretation: Performing Lab:[facility], [address] [place] [phone] Notes/Report: Liver Fibrosis Score 0.35 Liver Fibrosis [...] a>0.62 and a<=1.00 : A3 (severe activity) FLO-Lsmcb-7-Macroglobulin 164 106-279 mg/dL FIB-Haptoglobin 170 43-212 mg/dL FIB-Apolipoprotein A1 227 101-198 mg/dL FIB-Total Bilirubin 0.6 0.2-1.2 mg/dL FIB-GGT 1488 3-65 U/L FIB-ALT 143 6-29 U/L Reference ID [id number] Footnote SEE NOTE The reliability of results [...] The performance characteristics have been determined by [facility]. It has not been cleared or approved by the U.S. Food and Drug Administration. Performance characteristics refer to the analytical performance of the test. [employer], the associated logo, [employer] and all associated [employer] dong are the registered trademarks of [employer]. All third democrat dong - (R) and (TM) - are the property of their respective owners. (C) 7224-6127 [employer]. All rights reserved. THIS TEST WAS PERFORMED AT: [employer] [facility] [address] [place] [address] CRISTINA GIORDANO MD,PHD,PITA Complete Blood Count Auto Di ff Reviewed date:2024 09:08:47 AM Interpretation: Performing Lab:[facility], [address] [place] [phone] Notes/Report: White Blood Count 12.3 4.8-10.8 X10*3/uL [...] INR Reviewed date:2024 09:08:33 AM Interpretation: Performing Lab:[facility], [address] [place] [phone] Notes/Report: Prothrombin Time 10.6 10.9-12.4 SEC INTERNATIONAL [...] Time Reviewed date:2024 09:08:25 AM Interpretation: Performing Lab:[facility], [address] [place] [phone] Notes/Report: Partial Thromboplastin Time 32.7 26.0-36.8 SEC For information regarding the monitoring of direct thrombin inhibitors, please refer to Pharmacy. Basic Metabolic Panel Reviewed date:2024 09:08:12 AM Interpretation: Performing Lab:[facility], [address] [place] [phone] Notes/Report: Sodium 140 135-145 mmol/L Potassium 5.3 [...] Blood Reviewed date:2024 09:08:54 AM Interpretation: Performing Lab:[facility], [address] [place] [phone] Notes/Report: Glucose, Whole Blood 123 60-115 mg/dL METER # : [id number] Pathology (Not yet reviewed by provider) Interpretation: Performing Lab:[facility], [address] [place] [phone] Notes/Report: US biopsy liver Reviewed date:12/03/2024 12:41:31 AM Interpretation: Performing Lab: Notes/Report: [address] [place] [address] Ultrasound Report Signed Patient: Syeda Doll MR#: [id number] : 1955 Acct:[id number] Age/Sex: 68 / F ADM Date: 11/25/24 Loc: [facility] Attending Dr: Tommy Roberts MD Ordering Physician: Tommy Roberts MD Date of Service: 11/25/24 Procedure(s): US biopsy liver Accession Number(s): [id number] cc: Tram Darby MD; Tommy Roberts MD [...] OV> 11/25/24 1626 DD/ 1500 TD/TT: 11/25/24 1545 Staff Mechanical Engineer: Type and Screen Reviewed date:2024 09:08:19 AM Interpretation: Performing Lab:[facility], [address] [place] [phone] Notes/Report: Blood Type OP Antibody Screen NEGATIVE [...] 20 MG TAKE 1 CAPSULE BY MO TXH EVERY DAY for 90 Not-Taking MiraLax 17 [...] Status Risk Notes Problem Colon cancer screening (253235196) Colon cancer screening (Z12.11) Active confirmed Problem 959417705 Encounter for screening for malignant neoplasm of colon (Z12.11) Active confirmed Problem 063508731 History of adenomatous polyp of colon (Z86.010) Active confirmed Problem Constipation (50452662) Constipation (K59.00) Active confirmed Problem 553252437 Abdominal bloati ng (R14.0) Active confirmed Problem Early satiety (817317114) Early satiety (R68.81) Active confirmed Problem Elevated liver enzymes level (559911903) Elevated liver function tests (R79.89) Active confirmed Problem 084418426 Elevated liver enzymes (R74.8) Active confirmed Problem Fatty liver (258088022) Fatty liver (K76.0) Active confirmed Problem 921334119 Gastroesophageal reflux disease, esophagitis presence not specified (K21.9) Active confirmed Problem Serum alpha-fetoprote in level elevated (283704319) Elevated alpha fetoprotein (R77.2) Active confirmed Problem 216052323 Abdominal pain, generalized (R10.84) Active confirmed Problem Alkaline phosphatase raised (834593054) Elevated alkaline phosphatase level (R74.8) Active confirmed Problem 95283803 Irritable bowel syndrome, unspecified type (K58.9) Active confirmed Problem 609334407 Abdominal pain, RUQ (right upper quadrant) (R10.11) Active confirmed Problem Abnormal findings diagnostic imaging of liver and biliary tract (336773471) Abnormal ultrasound of biliary tract (R93.2) Active confirmed Vital Signs Temperature 98.6 degrees Fahrenheit 11/13/2024 Blood pressure diastolic 01 mm Hg 11/13/2024 Height 63 in 11/13/2024 Blood pressure systolic 001 mm Hg 11/13/2024 Weight 161 lbs 11/13/2024 BMI 28.52 kg/m2 11/13/2024 Encounters Encounter Location Date Provider Diagnosis [facility] [address] [place] [phone] 11/13/2024 Tommy Roberts Elevated liver enzymes R74.8 and Fatty liver K76.0 [facility] [address] [place] [phone] 11/16/2024 Tommy Roberts [facility] [address] [place] [phone] 12/02/2024 Tommy Roberts Elevated liver function tests [...] BUN 09/06/2023 LIVER PROFILE 10/11/2020 LIVER PROFILE 11/13/2024 LIVER PROFILE 12/02/2024 LIVER PROFILE 08/06/2023 LIVER PROFILE 07/03/2018 LIVER [...] Alisa Roberts , 04/14/2025 01:20:00 PM, [address] [facility], [address], [place], [address], Insurance Providers Payer Name Payer Address Payer Phone Subscriber Number Group Number Insured Name Patient Relationship to Insured Coverage Start Date Coverage End Date MED[place] OF [place] [address] [place] [address] [id number] SYEDA DOLL Self - patient is the insured 0 [facility] [address] [place] [address] [id number] SYEDA DOLL Self - patient is the insured Medical (General) History Medical History History ICD Code IDDM Hypertension Denies [place],CVA,Lung disease,renal disease Neg. colonoscopy in 2004 wit [...]
[2025-01-29 13:58] VITALS: BP 144/80; PULSE 90; O2SAT 97; BMI 28.9
--- NOTE | 2025-01-29 13:58 | A.OFFPC_ITS ---
Vital Signs 01/29/25 13:58 Height 5 ft 3 in Weight 163 lb BMI 28.9 BP 144/80 H Blood Pressure Location Lt brachial Position Sitting Pulse 90 Pulse Source Pulse Oximeter Pulse Oximetry (%) 97 Oxygen Delivery Method Room Air Intake Visit Reasons: 1 month f/up Allergies duloxetine (From Cymbalta) Allergy (Intermediate, Verified 01/29/25 13:58) Gastrointestinal Upset gabapentin Allergy (Intermediate, Verified 01/29/25 13:58) Gastrointestinal Upset milnacipran (From Savella) Allergy (Intermediate, Verified 01/29/25 13:58) Gastrointestinal Upset naloxegol (Movantik) Allergy (Intermediate, Verified 01/29/25 13:58) Gastrointestinal Upset pregabalin (From Lyrica) Allergy (Intermediate, Verified 01/29/25 13:58) Gastrointestinal Upset Medication List - Last Reconciled 01/29/25 by Tram Darby MD albuterol sulfate 90 mcg/actuation 1 - 2 puffs PO Q4-6H PRN 30 days amlodipine 10 mg PO DAILY 90 days blood sugar diagnostic (Accu-Chek Guide test strips) Test blood sugar 3 times per day blood-glucose meter (FreeStyle Lite Meter kit) patient to check blood sugar 3 times daily blood-glucose meter (OneTouch Ultra2 Meter) Patient to check blood sugar 3 times daily blood-glucose meter (Accu-Chek Guide Me Glucose Meter) test blood sugar three times per day evolocumab (Repatha SureClick) 140 mg subcut Q2W famotidine 40 mg PO BEDTIME fentanyl 50 mcg/hr 1 patch transdermal Q48H 30 days FreeStyle Lite Strips (blood sugar diagnostic) patient to check blood sugar 3 times daily NS insulin aspart U-100 (Novolog U-100 Insulin aspart) 10 units (0.1 mL) subcut TID 90 days insulin glargine U-300 conc (Toujeo SoloStar U-300 Insulin) 40 units (0.1333 mL) subcut DAILY 90 days insulin glargine-yfgn 30 units subcut DAILY lancets (Accu-Chek Softclix Lancets) Test blood sugar 3 times per day latanoprost 0.005% 1 drp ophthalmic (eye) BEDTIME lisinopril 40 mg PO DAILY 90 days nystatin 1 appl topical DAILY 30 days omeprazole 20 mg PO DAILY ondansetron HCl 4 mg PO ONCE PRN 30 days pen needle, diabetic qd pen needle, diabetic qd pen needle, diabetic qd sucralfate (Carafate) 1 g PO BID PRN tizanidine 4 mg PO BEDTIME PRN 90 days Tobacco use date assessed: 01/01/25 Fall risk assessment: No Falls in past year Last assessed Fall Risk: 01/29/25 Dental Screening Dental Screen Date: 01/01/25 HPI 1 month f/up HPI Details Medical History - failed Back syndrome - Insulin-dependent diabetes mellitus - Chronic lipid disorder - Gastric pain - Cirrhosis of the liver - Hypertension - Chronic nausea History of Present Illness - The patient is a 69-year-old female pr esenting with the following: - Chronic abdominal pain: The patient re ports persistent discomfort in the abdomen. Patient has seen Dr. Roberts but feel unsatisfactory with the care she would like to transition to Dr. Jones Patient had liver biopsy done in November of this year which showed Liver parenchyma with focal minimal steatosis, foci of fibrosis with septal bridging stage III, mild inflammatory activity create 1 . - Back pain: The patient mentions experi encing worsening back pain, previously described as off and on. - Diabetes: The patient has noted variat ions in her blood glucose levels but has secured an appointment with an industrial maintenance technician scheduled for the upcoming month. Medications: Need refills on - Fentanyl for pain management - Oxycodone for severe pain - Muscle relaxers (current unspecified; discussing potential change to baclofen due to liver sensitivity) Problem List - Chronic abdominal pain - Persistent headaches - Worsening back pain - Insulin-dependent diabetes mellitus - Cirrhosis of the liver - Hypertension - Lipid disorder Patient Instructions - Continue with current medication regim en as discussed. - Attend the upcoming appointment with benja sanchez industrial maintenance technician. - Monitor blood glucose levels and repor t significant variations. - Consider switching the muscle relaxer to baclofen as discussed. - referral request placed for Dr. Jones Review of Systems - General: No fever no chills - Neurological: No headaches no dizziness - Ear nose throat: No sore throat no hearing difficulty no ear pain - Cardiovascular: No syncope, no chest pain, no palpitations - Gastrointestinal: No vomiting or diarrhea - Endocrine: No polyuria polydipsia no heat intolerance - Genitourinary: No dysuria , no blood in urine Physical Exam General: No acute distress HEENT: Headaches all the time Neck: Supple Respiratory system: Able to talk in full sentences, no audible wheeze Cardiovascular: S1-S2 regular in rate and rhythm Gastrointestinal: Abdominal pain right upper quadrant chronic, bowel sounds positive Extremities: No new findings HOME APPLIANCE TECH: Alert awake oriented x3 motor sensory intact Skin: Normal turgor PFSH Medical History Asthma Hx of irritable bowel syndrome Pain management Narcotic dependence Herniated nucleus pulposus, cervical Hypertension, essential Muscle spasm 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 Mother Stomach cancer Social History Housing: House Are you a primary lawn caretaker to a significant other at home: No Do you presently have visiting nurse or other home services: No Alcohol intake: never Patient Tobacco Use Status: Never used Tobacco e-Cigarette/Vaping Use: Never Used service: No Current occupational status: disabled Cognitive needs: No Hearing needs: No Vision needs: Yes Questionnaire PHQ-9 Over the last 2 weeks, how often have you been bothered by any of the following problems? 1. Little interest or pleasure in doing things: several days 2. Feeling down, depressed, or hopeless: several days 3. Trouble falling or staying asleep, or sleeping too much: several days 4. Feeling tired or having little energy: several days 5. Poor appetite or overeating: more than half the days 6. Feeling bad about yourself - or that you are a failure or have let yourself or your family down: not at all 7. Trouble concentrating on things, such as reading the newspaper or watching television: not at all 8. Moving or speaking so slowly that other people could have noticed. Or the opposite - being so fidgety or restless that you have been moving around a lot more than usual: not at all 9. Thoughts that you would be better off or of hurting yourself in some way: not at all Total score: 6 Depression Screening Interpretation: Negative Depression Screening Done: Yes 05367 - PHQ-9 Billing: Yes Source: Developed by Drs. Tommy Graham, Marnie Ford, Sebastien Vaughn and colleagues, with an educational mayito from [employer]. Thrive Questionnaire Date Thrive assessed: 01/29/25 I am a: Patient What is your living situation today?: I have a steady place to live Within the past 12 months, did the food you bought not last and you didn't have the money to get more?: Never true Within the past 12 months, did you worry whether your food would run out before you got money to buy more?: Never true Do you have trouble paying for medicines?: No Do you have trouble getting transportation to medical appointments?: No Do you have trouble paying your heating and electricity bill?: No Do you have trouble taking care of your child, family member or friend?: No Do you have trouble with day-to-day activities such as bathing, preparing meals, shopping, managing finances, etc.?: No Are you currently unemployed and looking for a job?: No Are you interested in more education?: No Please select the resources that you would like help with: None Currently or been in a relationship where the following occur: No concerns reported THRIVE Score: 0 AUDIT C Alcohol Use Questionnaire (AUDIT-C) 1. How often do you have a drink containing alcohol?: Never 3. How often do you have six or more drinks on one occasion?: Never Total Score: 0 Score Reviewed/Action Taken: Yes SACHIN-7 AMB Questionnaire SACHIN-7 Date SACHIN - 7 assessed: 01/29/25 Feeling nervous, anxious, or on edge: 0 = Not at all Not being able to stop or control worryin = Not at all Worrying too much about different things: 0 = Not at all Trouble relaxin = Not at all Being so restless that it is hard to sit still: 0 = Not at all Becoming easily annoyed or irritable: 0 = Not at all Feeling afraid as if something awful might happen: 0 = Not at all Total SACHIN-7 score (0-4 normal; 5-9 mild; 10-14 moderate; 15-21 severe): 0 Source: Developed by Drs. Tommy Graham, Marnie Ford, Sebastien Vaughn and colleagues, with an educational mayito from [employer]. SACHIN-7 Assessment Billing SACHIN-7 Assessment Tool: SACHIN-7 Assessment 78618 Physical exam (Primary Care) Vital Signs: Last Vital Signs Pulse 90 01/29/25 13:58 BP 144/80 H 01/29/25 13:58 Pulse Ox 97 01/29/25 13:58 Oxygen Delivery Method Room Air 01/29/25 13:58 BMI result Body Mass Index 28.9 Tobacco/Smoking Status: Tobacco use Status Tobacco use date assessed 01/01/25 01/29/25 13:59 Patient Tobacco Use Status Never used Tobacco 01/29/25 13:59 e-Cigarette/Vaping Use Never Used 01/29/25 13:59 PHQ-9: PHQ-9 Score PHQ-9: Total score 6 01/29/25 14:03 Depression Screening Interpretation: Negative Thrive Assessment: Date of Thrive Assessment Date Thrive assessed 01/29/25 01/29/25 14:03 Currently or been in a relationship where the following occur: No concerns reported Coding Level of Care Code Est Pt Level 4 (23173) Complex EM visit Add On G2211 Diagnoses LFTs abnormal R94.5 Other cirrhosis of liver K74.69 Hepatic cirrhosis type: other cirrhosis Diabetes 1.5, managed as type 1 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.9 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 Z79.4 Essential hypertension I10 Lipid disorder E78.9 Right lumbar radiculitis M54.16 Failed back syndrome M96.1 Muscle spasm M62.838 Narcotic dependence F11.20 Additional Codes SACHIN-7 Assessment Billing - SACHIN-7 Assessment Tool: SACHIN-7 Assessment 09359 ([id number]) PHQ-9 - 83051 - PHQ-9 Billing: Yes ([id number]) Assessment & Plan Assessment & Plan (1) LFTs abnormal: Code(s): R94.5 - Abnormal results of liver function studies Category: Medical (2) Liver cirrhosis: Code(s): K74.60 - Unspecified cirrhosis of liver Category: Medical Qualifiers: Hepatic cirrhosis type: other cirrhosis Qualified Code(s): K74.69 - Other cirrhosis of liver (3) Diabetes 1.5, managed as type 1: Comment: taking lantus insulin Code(s): E13.9 - Other specified diabetes mellitus without complications Category: Medical (4) care home (current) use of insulin: Code(s): Z79.4 - 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 Category: Medical (5) Essential hypertension: Code(s): I10 - Essential (primary) hypertension Category: Medical (6) Lipid disorder: Code(s): E78.9 - Disorder of lipoprotein metabolism, unspecified Category: Medical (7) Right lumbar radiculitis: Code(s): M54.16 - Radiculopathy, lumbar region Category: Medical (8) Failed back syndrome: Comment: uses fentanyl patch & oxycodone Code(s): M96.1 - Postlaminectomy syndrome, not elsewhere classified Category: Medical (9) Muscle spasm: Code(s): M62.838 - Other muscle spasm Category: Medical (10) Narcotic dependence: Code(s): F11.20 - Opioid dependence, uncomplicated Category: Medical Plan This is a long-term care visit Medical History - failed Back syndrome - Insulin-dependent diabetes mellitus - Chronic lipid disorder - Gastric pain - Cirrhosis of the liver - Hypertension - Chronic nausea History of Present Illness - The patient is a 69-year-old female presenting with the following: - Chronic abdominal pain: The patient reports persistent discomfort in the abdomen. Patient has seen Dr. Roberts but feel unsatisfactory with the care she would like to transition to Dr. Jones Patient had liver biopsy done in November of this year which showed Liver parenchyma with focal minimal steatosis, foci of fibrosis with septal bridging stage III, mild inflammatory activity create 1 . - Back pain: The patient mentions experiencing worsening back pain, previously described as off and on. - Diabetes: The patient has noted variations in her blood glucose levels but has secured an appointment with an industrial maintenance technician scheduled for the upcoming month. Medications: Need refills on - Fentanyl for pain management - Oxycodone for severe pain - Muscle relaxers (current unspecified; discussing potential change to baclofen due to liver sensitivity) Problem List - Chronic abdominal pain - Persistent headaches - Worsening back pain - Insulin-dependent diabetes mellitus - Cirrhosis of the liver - Hypertension - Lipid disorder Patient Instructions - Continue with current medication regimen as discussed. - Attend the upcoming appointment with the industrial maintenance technician. - Monitor blood glucose levels and report significant variations. - Consider switching the muscle relaxer to baclofen as discussed. - referral request placed for Dr. Jones Orders: Referrals Gastroenterology Referral K74.60 - Unspecified cirrhosis of liver, R94.5 - Abnormal results of liver function studies Medications: New oxycodone Partial Fill upon patient request. 5 mg PO DAILY PRN 30 caps 0RF For breakthrough back pain baclofen 10 mg PO BEDTIME 30 tabs 0RF Muscle spasms Refilled fentanyl 50 mcg/hr 1 patch transdermal Q48H 15 ea 0RF 30 days F11.20 - Opioid dependence, uncomplicated, M50.20 - Other cervical disc displacement, unspecified cervical region, M96.1 - Postlaminectomy syndrome, not elsewhere classified, R52 - Pain, unspecified Discontinued tizanidine Discontinued Reason: Doctor's Order 4 mg PO BEDTIME 90 days PRN 90 tabs 1RF for muscle spasm M62.838 - Other muscle spasm
== END 2025-01-29 14:44 | disposition home or self-care (01) ==
LOC: HO.HMCC 13:55
PROVIDERS: PCP Internal Medicine; Visit Provider Internal Medicine
DX: K74.69 Other cirrhosis of liver (principal); E13.9 Other specified diabetes mellitus without complications; Z79.4 Long term (current) use of insulin; F11.20 Opioid dependence, uncomplicated; R94.5 Abnormal results of liver function studies; I10 Essential (primary) hypertension; E78.9 Disorder of lipoprotein metabolism, unspecified; M54.16 Radiculopathy, lumbar region; M96.1 Postlaminectomy syndrome, not elsewhere classified; M62.838 Other muscle spasm

== ENCOUNTER → 2025-01-29 13:54 | Outpatient (BNVA) | payer MEDICARE, MEDICAID, SELFPAY | PROVIDERS: PCP Internal Medicine; Visit Provider Internal Medicine | DX: R94.5 Abnormal results of liver function studies (principal); K74.69 Other cirrhosis of liver; E13.9 Other specified diabetes mellitus without complications; I10 Essential (primary) hypertension; E78.9 Disorder of lipoprotein metabolism, unspecified; M54.16 Radiculopathy, lumbar region; M96.1 Postlaminectomy syndrome, not elsewhere classified; M62.838 Other muscle spasm; F11.20 Opioid dependence, uncomplicated; Z79.4 Long term (current) use of insulin | CPT/HCPCS: 96127; 99212 ==

== ENCOUNTER 2025-03-03 09:31 | Outpatient (AMB) | payer MEDICARE, MEDICAID, SELFPAY ==
--- NOTE | 2025-03-03 09:34 | A.OFFPC_ITS ---
Vital Signs 03/03/25 09:35 Height 5 ft 3 in Weight 163 lb BMI 28.9 BP 130/76 Blood Pressure Location Lt brachial Position Sitting Respiration 18 Pulse 95 Pulse Source Pulse Oximeter Temp 98.6 F Temp Source Oral Pulse Oximetry (%) 96 Oxygen Delivery Method Room Air Intake Visit Reasons: 1 month f/up Allergies duloxetine (From Cymbalta) Allergy (Intermediate, Verified 03/03/25 09:36) Gastrointestinal Upset gabapentin Allergy (Intermediate, Verified 03/03/25 09:36) Gastrointestinal Upset milnacipran (From Savella) Allergy (Intermediate, Verified 03/03/25 09:36) Gastrointestinal Upset naloxegol (Movantik) Allergy (Intermediate, Verified 03/03/25 09:36) Gastrointestinal Upset pregabalin (From Lyrica) Allergy (Intermediate, Verified 03/03/25 09:36) Gastrointestinal Upset Medication List - Last Reconciled 03/03/25 by Tram Darby MD albuterol sulfate 90 mcg/actuation 1 - 2 puffs PO Q4-6H PRN 30 days amlodipine 10 mg PO DAILY 90 days baclofen 10 mg PO BEDTIME blood sugar diagnostic (Accu-Chek Guide test strips) Test blood sugar 3 times per day blood-glucose meter (FreeStyle Lite Meter kit) patient to check blood sugar 3 times daily blood-glucose meter (OneTouch Ultra2 Meter) Patient to check blood sugar 3 times daily blood-glucose meter (Accu-Chek Guide Me Glucose Meter) test blood sugar three times per day evolocumab (Repatha SureClick) 140 mg subcut Q2W famotidine 40 mg PO BEDTIME fentanyl 50 mcg/hr 1 patch transdermal Q48H 30 days FreeStyle Lite Strips (blood sugar diagnostic) patient to check blood sugar 3 times daily NS insulin aspart U-100 (Novolog U-100 Insulin aspart) 10 units (0.1 mL) subcut TID 90 days insulin glargine U-300 conc (Toujeo SoloStar U-300 Insulin) 40 units (0.1333 mL) subcut DAILY 90 days insulin glargine-yfgn 30 units subcut DAILY lancets (Accu-Chek Softclix Lancets) Test blood sugar 3 times per day latanoprost 0.005% 1 drp ophthalmic (eye) BEDTIME lisinopril 40 mg PO DAILY 90 days nystatin 1 appl topical DAILY 30 days omeprazole 20 mg PO DAILY ondansetron HCl 4 mg PO ONCE PRN 30 days oxycodone 5 mg PO DAILY PRN pen needle, diabetic qd pen needle, diabetic qd pen needle, diabetic qd sucralfate (Carafate) 1 g PO BID PRN Tobacco use date assessed: 03/03/25 Fall risk assessment: No Falls in past year Last assessed Fall Risk: 03/03/25 Dental Screening Dental Screen Date: 01/01/25 HPI 1 month f/up HPI Details Chief Complaint Persistent headaches and concerns regarding fentanyl patch refills. History of Present Illness The patient is a 69-year-old female presenting with chronic headaches. Chronic Headaches: - Patient reports persistent headaches a nd notes uncertain etiology. - History of migraine headaches, with se lf-reported trials of sumatriptan causing excessive drowsiness. . Chronic Pain Management: - The patient uses fentanyl patches for pain, acknowledges issues related to refill timing. - Discussed prior delays in receiving pa tches, adjusted as per insurance and pharmacy protocol. Gastroenterology Management: - Expresses dissatisfaction with current tourist home keeper, Dr. Roberts, and desires a change. - Previous liver biopsy in November showed fo joelle minimal steatosis, fibrosis with septal bridging stage 3, and mild inflammatory activity (grade 1). - Concern raised over limited communicat ion for ongoing care. Medical History: - Essential hypertension, controlled wit h lisinopril and amlodipine. - Type 2 Diabetes Mellitus, with an HbA1 c of 8.4 as of November this year. - Chronic obstructive pulmonary disease, managed with baclofen and inhalers. - Hyperlipidemia. . Surgical History: - Liver biopsy performed in November of this year. Medications: - Amlodipine 10 mg for hypertension. - Baclofen 10 mg for muscle spasms. - Insulin 10 units subcutaneous TID (nor mal-log) for diabetes. - Insulin glargine 40 units daily at [facility] for diabetes. - Lisinopril 40 mg for hypertension. - Omeprazole 20 mg for GERD. 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 - Reported challenges with medication re fills linked to pharmacy and insurance protocol. Diagnostic Results: - Labs: Last HbA1c was 8.4 in November. - Tests and Diagnostics: - Liver biopsy in May showed focal minimal steatosis, fibrosis with septal bridging stage 3, and mild inflammatory activity grade 1. Problem List - Chronic headaches/migraines - Type 2 Diabetes Mellitus - Essential Hypertension - Hyperlipidemia - Chronic pain managed with fentanyl pat ches - Past liver biopsy finding of steatosis and fibrosis Patient Instructions - Consider use of amitriptyline for head ache prevention. 10 mg tablets sent - Contact gastroenterology office to arr [facility] under a new specialist. - [facility] to avoid interruptions. - Engage actively in lifestyle modificat ions to manage diabetes. Follow-up 4 weeks Review of Systems - General: No fever no chills - Neurological: No headaches no dizziness - Ear nose throat: No sore throat no hearing difficulty no ear pain - Cardiovascular: No syncope, no chest pain, no palpitations - Endocrine: No polyuria polydipsia no heat intolerance - Genitourinary: No dysuria , no blood in urine Physical Exam General: No acute distress HEENT: No acute findings Neck: Supple Respiratory system: Able to talk in full sentences, no audible wheeze Cardiovascular: S1-S2 regular in rate and rhythm, blood pressure stable at 130/76 Gastrointestinal: Chronic GERD, chronic generalized abdominal discomfort Extremities: No new findings CONTAMINATION CONSULTANT: Alert awake oriented x3 motor sensory intact Skin: Normal turgor PFSH Medical History Asthma Hx of irritable bowel syndrome Pain management Narcotic dependence Herniated nucleus pulposus, cervical Hypertension, essential Muscle spasm 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 Mother Stomach cancer Social History Housing: House Are you a primary career developer to a significant other at home: No Do you presently have visiting nurse or other home services: No Alcohol intake: never Patient Tobacco Use Status: Never used Tobacco e-Cigarette/Vaping Use: Never Used service: No Current occupational status: disabled Cognitive needs: No Hearing needs: No Vision needs: Yes Questionnaire Thrive Questionnaire Date Thrive assessed: 09/30/24 I am a: Patient SACHIN-7 AMB Questionnaire SACHIN-7 Date SACHIN - 7 assessed: 01/29/25 Source: Developed by Drs. Tommy Graham, Marnie Ford, Sebastien Vaughn and colleagues, with an educational mayito from [employer] Physical exam (Primary Care) Vital Signs: Last Vital Signs Temp 98.6 F 03/03/25 09:35 Pulse 95 03/03/25 09:35 Resp 18 03/03/25 09:35 BP 130/76 03/03/25 09:35 Pulse Ox 96 03/03/25 09:35 Oxygen Delivery Method Room Air 03/03/25 09:35 BMI result Body Mass Index 28.9 Tobacco/Smoking Status: Tobacco use Status Tobacco use date assessed 03/03/25 03/03/25 09:38 Patient Tobacco Use Status Never used Tobacco 03/03/25 09:38 e-Cigarette/Vaping Use Never Used 03/03/25 09:38 Thrive Assessment: Date of Thrive Assessment Date Thrive assessed 09/30/24 03/03/25 09:38 Coding Level of Care Code Est Pt Level 4 (14544) Complex EM visit Add On G2211 Diagnoses LFTs abnormal R94.5 Other cirrhosis of liver K74.69 Hepatic cirrhosis type: other cirrhosis Diabetes 1.5, managed as type 1 E13.9 intermediate frame tender (current) use of insulin Z79.4 Essential hypertension I10 Lipid disorder E78.9 Right lumbar radiculitis M54.16 Failed back syndrome M96.1 Muscle spasm M62.838 Narcotic dependence F11.20 Assessment & Plan Assessment & Plan (1) LFTs abnormal: Code(s): R94.5 - Abnormal results of liver function studies Category: Medical (2) Liver cirrhosis: Code(s): K74.60 - Unspecified cirrhosis of liver Category: Medical Qualifiers: Hepatic cirrhosis type: other cirrhosis Qualified Code(s): K74.69 - Other cirrhosis of liver (3) Diabetes 1.5, managed as type 1: Comment: taking lantus insulin Code(s): E13.9 - Other specified diabetes mellitus without complications Category: Medical (4) nursing home (current) use of insulin: Code(s): Z79.4 - nursing home (current) use of insulin Category: Medical (5) Essential hypertension: Code(s): I10 - Essential (primary) hypertension Category: Medical (6) Lipid disorder: Code(s): E78.9 - Disorder of lipoprotein metabolism, unspecified Category: Medical (7) Right lumbar radiculitis: Code(s): M54.16 - Radiculopathy, lumbar region Category: Medical (8) Failed back syndrome: Comment: uses fentanyl patch & oxycodone Code(s): M96.1 - Postlaminectomy syndrome, not elsewhere classified Category: Medical (9) Muscle spasm: Code(s): M62.838 - Other muscle spasm Category: Medical (10) Narcotic dependence: Code(s): F11.20 - Opioid dependence, uncomplicated Category: Medical Plan Chief Complaint Persistent headaches and concerns regarding fentanyl patch refills. History of Present Illness The patient is a 69-year-old female presenting with chronic headaches. Chronic Headaches: - Patient reports persistent headaches and notes uncertain etiology. - History of migraine headaches, with self-reported trials of sumatriptan causing excessive drowsiness. . Chronic Pain Management: - The patient uses fentanyl patches for pain, acknowledges issues related to refill timing. - Discussed prior delays in receiving patches, adjusted as per insurance and pharmacy protocol. Gastroenterology Management: - Expresses dissatisfaction with current tourist home keeper, Dr. Roberts, and desires a change. - Previous liver biopsy in November showed focal minimal steatosis, fibrosis with septal bridging stage 3, and mild inflammatory activity (grade 1). - Concern raised over limited communication for ongoing care. Medical History: - Essential hypertension, controlled with lisinopril and amlodipine. - Type 2 Diabetes Mellitus, with an HbA1c of 8.4 as of November this year. - Chronic obstructive pulmonary disease, managed with baclofen and inhalers. - Hyperlipidemia. . Surgical History: - Liver biopsy performed in November of this year. Medications: - Amlodipine 10 mg for hypertension. - Baclofen 10 mg for muscle spasms. - Insulin 10 units subcutaneous TID (normal-log) for diabetes. - Insulin glargine 40 units daily at night for diabetes. - Lisinopril 40 mg for hypertension. - Omeprazole 20 mg for GERD. 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 - Reported challenges with medication refills linked to pharmacy and insurance protocol. Diagnostic Results: - Labs: Last HbA1c was 8.4 in November of current year. - Tests and Diagnostics: - Liver biopsy in November showed focal minimal steatosis, fibrosis with septal bridging stage 3, and mild inflammatory activity grade 1. Problem List - Chronic headaches/migraines - Type 2 Diabetes Mellitus - Essential Hypertension - Hyperlipidemia - Chronic pain managed with fentanyl patches - Past liver biopsy finding of steatosis and fibrosis Patient Instructions - Consider use of amitriptyline for headache prevention. 10 mg tablets sent - Contact gastroenterology office to arrange care under a new specialist. - Secure timely communication with the pharmacy for fentanyl patch refills to avoid interruptions. - Engage actively in lifestyle modifications to manage diabetes. Follow-up 4 weeks Medications: Refilled fentanyl 50 mcg/hr 1 patch transdermal Q48H 15 ea 0RF 30 days F11.20 - Opioid dependence, uncomplicated, M50.20 - Other cervical disc displacement, unspecified cervical region, M96.1 - Postlaminectomy syndrome, not elsewhere classified, R52 - Pain, unspecified
[2025-03-03 09:35] VITALS: BP 130/76; PULSE 95; RESP 18; TEMP 37; O2SAT 96; BMI 28.9
--- OUTSIDE RECORDS SUMMARY | 2025-03-03 10:09 | XMS_ITS | Patient Health Record ---
Author Organization [facility] Address [address] [place] [address] Care Team Providers Care Monogram Operator Name Role Phone Wilner GONSALES, Asma Primary Care Provider Tommy Almonte [phone] Allergies Allergen (clinical drug ingredient) Drug/Non Drug Allergy documented on EMR Reaction Allergy Type Onset Date Status naloxegol Movantik Unknown Drug Allergy Active Results Component Value Reference Range Notes Complete Blood Count Auto Di ff Reviewed date:11/23/2024 06:53:58 PM Interpretation: Performing Lab:[facility], [address] [place] [phone] Notes/Report: White Blood Count 8.3 4.8-10.8 X10*3/uL [...] INR Reviewed date:11/23/2024 06:54:18 PM Interpretation: Performing Lab:[address] [phone] Notes/Report: Prothrombin Time 10.7 10.9-12.4 SEC INTERNATIONAL [...] Time Reviewed date:11/23/2024 06:54:09 PM Interpretation: Performing Lab:[address] [phone] Notes/Report: Partial Thromboplastin Time 32.4 26.0-36.8 SEC For information regarding the monitoring of direct thrombin inhibitors, please refer to Pharmacy. Liver Panel Reviewed date:2024 10:00:04 PM Interpretation: Performing Lab:[address] [phone] Notes/Report: Bilirubin Total 0.7 0.0-1.0 mg/dL Bilirubin Direct 0.3 0.0-0.5 mg/dL Aspartate Amino Transferase 110 5-31 U/L Alanine Aminotransferase 189 0-31 U/L Total Protein 8.2 6.5-8.0 g/dL Albumin Level 4.1 3.5-5.0 g/dL Alkaline Phosphatase 406 39-117 U/L Liver Fibrosis Pnl Reviewed date:11/30/2024 06:17:11 PM Interpretation: Performing Lab:[facility], [address] [place] [phone] Notes/Report: Liver Fibrosis Score 0.35 Liver Fibrosis [...] a>0.62 and a<=1.00 : A3 (severe activity) SHU-Razad-8-Macroglobulin 164 106-279 mg/dL FIB-Haptoglobin 170 43-212 mg/dL FIB-Apolipoprotein A1 227 101-198 mg/dL FIB-Total Bilirubin 0.6 0.2-1.2 mg/dL FIB-GGT 1488 3-65 U/L FIB-ALT 143 6-29 U/L Reference ID [id number] Footnote SEE NOTE The reliability of results [...] The performance characteristics have been determined by [facility]. It has not been cleared or approved by the U.S. Food and Drug Administration. Performance characteristics refer to the analytical performance of the test. Mungo, the associated logo, [employer] and all associated [employer] dong are the registered trademarks of [employer]. All third democrat dong - (R) and (TM) - are the property of their respective owners. (C) [id number] [employer]. All rights reserved. THIS TEST WAS PERFORMED AT: [facility] [place] [address] [place] [address] CRISTINA GIORDANO MD,PHD,PITA Complete Blood Count Auto Di ff Reviewed date:2024 09:08:47 AM Interpretation: Performing Lab:[facility], [address] [place] [phone] Notes/Report: White Blood Count 12.3 4.8-10.8 X10*3/uL [...] INR Reviewed date:2024 09:08:33 AM Interpretation: Performing Lab:[facility], [address] [place] [phone] Notes/Report: Prothrombin Time 10.6 10.9-12.4 SEC INTERNATIONAL [...] Time Reviewed date:2024 09:08:25 AM Interpretation: Performing Lab:[facility], [address] [place] [phone] Notes/Report: Partial Thromboplastin Time 32.7 26.0-36.8 SEC For information regarding the monitoring of direct thrombin inhibitors, please refer to Pharmacy. Basic Metabolic Panel Reviewed date:2024 09:08:12 AM Interpretation: Performing Lab:[facility], [address] [place] [phone] Notes/Report: Sodium 140 135-145 mmol/L Potassium 5.3 [...] Blood Reviewed date:2024 09:08:54 AM Interpretation: Performing Lab:[facility], [address] [place] [phone] Notes/Report: Glucose, Whole Blood 123 60-115 mg/dL METER # : [id number] Pathology (Not yet reviewed by provider) Interpretation: Performing Lab:[facility], [address] [place] [phone] Notes/Report: US biopsy liver Reviewed date:12/03/2024 12:41:31 AM Interpretation: Performing Lab: Notes/Report: [address] [place] [address] Ultrasound Report Signed Patient: Syeda Doll MR#: [id number] : 1955 Acct:[id number] Age/Sex: 68 / F ADM Date: 11/25/24 Loc: [facility] Attending Dr: Tommy Roberts MD Ordering Physician: Tommy Roberts MD Date of Service: 11/25/24 Procedure(s): US biopsy liver Accession Number(s): [id number] cc: Tram Darby MD; Tommy Roberts MD [...] 11/25/24 1626 DD/ 1500 TD/TT: 11/25/24 1545 Sanitation Worker: Type and Screen Reviewed date:2024 09:08:19 AM Interpretation: Performing Lab:[facility], [address] [place] [phone] Notes/Report: Blood Type OP Antibody Screen NEGATIVE [...] 20 MG TAKE 1 CAPSULE BY MO [facility] EVERY DAY for 90 Not-Taking MiraLax 17 [...] Status Risk Notes Problem Colon cancer screening (869545787) Colon cancer screening (Z12.11) Active confirmed Problem 238101797 Encounter for screening for malignant neoplasm of colon (Z12.11) Active confirmed Problem 590043919 History of adenomatous polyp of colon (Z86.010) Active confirmed Problem Constipation (07601743) Constipation (K59.00) Active confirmed Problem 217013842 Abdominal bloati ng (R14.0) Active confirmed Problem Early satiety (146555045) Early satiety (R68.81) Active confirmed Problem Elevated liver enzymes level (590171244) Elevated liver function tests (R79.89) Active confirmed Problem 082793305 Elevated liver enzymes (R74.8) Active confirmed Problem Fatty liver (897478363) Fatty liver (K76.0) Active confirmed Problem 564423473 Gastroesophageal reflux disease, esophagitis presence not specified (K21.9) Active confirmed Problem Serum alpha-fetoprote in level elevated (207564282) Elevated alpha fetoprotein (R77.2) Active confirmed Problem 805176887 Abdominal pain, generalized (R10.84) Active confirmed Problem Alkaline phosphatase raised (450689465) Elevated alkaline phosphatase level (R74.8) Active confirmed Problem 30337557 Irritable bowel syndrome, unspecified type (K58.9) Active confirmed Problem 902974370 Abdominal pain, RUQ (right upper quadrant) (R10.11) Active confirmed Problem Abnormal findings diagnostic imaging of liver and biliary tract (382575216) Abnormal ultrasound of biliary tract (R93.2) Active confirmed Vital Signs Temperature 98.6 degrees Fahrenheit 11/13/2024 Blood pressure diastolic 01 mm Hg 11/13/2024 Height 63 in 11/13/2024 Blood pressure systolic 001 mm Hg 11/13/2024 Weight 161 lbs 11/13/2024 BMI 28.52 kg/m2 11/13/2024 Encounters Encounter Location Date Provider Diagnosis [facility] [address] [place] [phone] 11/13/2024 Tommy Roberts Elevated liver enzymes R74.8 and Fatty liver K76.0 [facility] [address] [place] [phone] 11/16/2024 Tommy Roberts [facility] [address] [place] [phone] 12/02/2024 Tommy Roberts Elevated liver function tests [...] Alisa Roberts , 04/14/2025 01:20:00 PM, [address] [facility], [address], [place], [address], Insurance Providers Payer Name Payer Address Payer Phone Subscriber Number Group Number Insured Name Patient Relationship to Insured Coverage Start Date Coverage End Date MED[employer] OF [employer] [address] [place] [address] [phone] [id number] SYEDA DOLL Self - patient is the insured 0 [facility] [address] [facility] [place] [phone] [id number] SYEDA DOLL Self - patient is the [...]
== END 2025-03-03 10:41 | disposition home or self-care (01) ==
LOC: HO.HMCC 09:31
PROVIDERS: PCP Internal Medicine; Visit Provider Internal Medicine
DX: Z79.4 Long term (current) use of insulin (principal); K74.69 Other cirrhosis of liver; E13.9 Other specified diabetes mellitus without complications; F11.20 Opioid dependence, uncomplicated; R94.5 Abnormal results of liver function studies; I10 Essential (primary) hypertension; E78.9 Disorder of lipoprotein metabolism, unspecified; M54.16 Radiculopathy, lumbar region; M96.1 Postlaminectomy syndrome, not elsewhere classified; M62.838 Other muscle spasm

== ENCOUNTER → 2025-03-03 09:31 | Outpatient (BNVA) | payer MEDICARE, MEDICAID, SELFPAY | PROVIDERS: PCP Internal Medicine; Visit Provider Internal Medicine | DX: E13.9 Other specified diabetes mellitus without complications (principal); Z79.4 Long term (current) use of insulin; R94.5 Abnormal results of liver function studies; K74.69 Other cirrhosis of liver; E78.9 Disorder of lipoprotein metabolism, unspecified; I10 Essential (primary) hypertension; M54.16 Radiculopathy, lumbar region; M96.1 Postlaminectomy syndrome, not elsewhere classified; M62.838 Other muscle spasm; F11.20 Opioid dependence, uncomplicated | CPT/HCPCS: 99212 ==

== ENCOUNTER 2025-03-25 10:48 | Outpatient (AMB) | payer MEDICARE, MEDICAID, SELFPAY ==
[2025-03-25 10:49] VITALS: BP 128/62; PULSE 77; O2SAT 97; BMI 29.0
--- NOTE | 2025-03-25 10:49 | MHC.OFFVIS ---
Vital Signs 03/25/25 10:49 Height 5 ft 3 in Weight 163 lb 9.328 oz BMI 29.0 BP 128/62 Blood Pressure Location Lt brachial Position Sitting Pulse 77 Pulse Source Pulse Oximeter Pulse Oximetry (%) 97 Oxygen Delivery Method Room Air Intake Visit Reasons: T2DM Intake Note: NEW Patient presents today to establish treatment for Type 2 Diabetes Mellitus: Last Diabetic eye exam was on: 08/27/2024, [facility] Last Podiatry exam was on: Patient does not see a Pump Installation And Servicer Most recent HbA1c: 7.8 Random Glucose:? ?202 ?mg/dL Sports Equipment Repairer Required: No Accompanied by: Self / Same As Patient Allergies duloxetine (From Cymbalta) Allergy (Intermediate, Verified 03/25/25 10:56) Gastrointestinal Upset gabapentin Allergy (Intermediate, Verified 03/25/25 10:56) Gastrointestinal Upset milnacipran (From Savella) Allergy (Intermediate, Verified 03/25/25 10:56) Gastrointestinal Upset naloxegol (Movantik) Allergy (Intermediate, Verified 03/25/25 10:56) Gastrointestinal Upset pregabalin (From Lyrica) Allergy (Intermediate, Verified 03/25/25 10:56) Gastrointestinal Upset HPI Comments Details: This is a 69 year old female presenting for diabetes consultation Medical history: HTN, COPD, liver fibrosis, chronic headaches Diagnosed with diabetes: Daughter is diabetic. No one else in the family Current diabetic medication - Novolog 10 units subcutaneous TID - Insulin glargine 34 units daily at night for diabetes. Previously on metformin-GI upset - Labs: A1C today is 7.8%. Last HbA1c was 8.4 in November 2024 -She did not like CGM. Using accuchek, checking only fasting daily. Says generally under 120. -Reports infrequent lows. Recently woke up with BG 50. She drinks juice, has candy and rechecks Neuropathy: Denies Eye exam:Scheduled for oct On lisinopril Diabetic education:referred today Tests and Diagnostics: - Liver biopsy in November showed focal minimal steatosis, fibrosis with septal bridging stage 3, and mild inflammatory activity grade 1. chest discomfort/palpitations-follows cardiology-undergone a comprehensive workup including echocardiogram, Holter and coronary CTA. ROS CONSTITUTIONAL: Denies weight loss, fever and chills. HEENT: Denies changes in vision and hearing. RESPIRATORY: Denies SOB and cough. CV: Denies palpitations and CP GI: Denies abdominal pain, nausea, vomiting and diarrhea. : Denies dysuria and urinary frequency. MSK: Denies new myalgia and joint pain. SKIN: Denies rash and pruritus. NEUROLOGICAL: Denies headache PSYCHIATRIC: Denies recent changes in mood. PHYSICAL EXAM: GENERAL: Alert and oriented x 3. NAD EYES: EOMI. Anicteric. HENT: Moist mucous membranes. No scleral icterus. No cervical lymphadenopathy. LUNGS: Clear to auscultation bilaterally. CARDIOVASCULAR: Regular rate and rhythm. No murmur. No JVD. ABDOMEN: Soft, non-tender +bs EXTREMITIES: No edema. Non-tender. +PT pulses SKIN: No rashes or lesions. Warm. NEUROLOGIC: No focal neurological deficits. CN II-XII grossly intact PSYCHIATRIC: Cooperative. Appropriate mood and affect PFSH Medical History Asthma Hx of irritable bowel syndrome Pain management Narcotic dependence Herniated nucleus pulposus, cervical Hypertension, essential Muscle spasm Failed back syndrome DJD (degenerative joint disease) of thoracic spine Radiculitis of right cervical region Chronic GERD LFTs abnormal Diabetes 1.5, managed as type 1 Surgical History History of liver biopsy Hx of laser iridotomy H/O cataract extraction History of cervical spinal surgery History of lumbar surgery History of esophagogastroduodenoscopy History of colonoscopy History of esophagogastroduodenoscopy History of hysterectomy with oophorectomy Hx of cholecystectomy Family History Father No problems noted. Mother Stomach cancer Social History Housing: House Are you a primary health care coach to a significant other at home: No Do you presently have visiting nurse or other home services: No Alcohol intake: never Patient Tobacco Use Status: Never used Tobacco e-Cigarette/Vaping Use: Never Used service: No Current occupational status: disabled Cognitive needs: No Hearing needs: No Vision needs: Yes Physical Exam Vital Signs: Last Vital Signs Pulse 77 03/25/25 10:49 BP 128/62 03/25/25 10:49 Pulse Ox 97 03/25/25 10:49 Oxygen Delivery Method Room Air 03/25/25 10:49 BMI result Body Mass Index 29.0 Results AMB Hemoglobin A1c AMB Hemoglobin A1c 7.8 % Last Edit by Lili Lancaster CMA on 03/25/25 11:20 Results Reviewed Results Reviewed: Laboratory Last Values Glucose (Clinic) 202 mg/dL (60-115) H 03/25/25 11:06 Assessment & Plan Assessment & Plan (1) Diabetes 1.5, managed as type 1: Comment: taking lantus insulin Code(s): E13.9 - Other specified diabetes mellitus without complications Category: Medical (2) prison (current) use of insulin: Code(s): Z79.4 - prison (current) use of insulin Category: Medical Plan Diabetes uncontrolled Labs today for type 1. She expresses interest in coming off insulin. Discussed not possible if type 1 and unlikely even if not but perhaps we could add orals/glps and minize insulin Add mounjaro 2.5mg weekly. Continue current doses of insulin Discussed that she should be checking BG more frequently or go on CGM. She is hesitant. This will be readdressed with certified adapted physical educator Discussed treating lows by rules of 15s. I would re-emphasize this with certified adapted physical educator Eye exam is scheduled. She denies any issues with her feet, denies neuropathy Orders: Orders Islet Cell Antibody Scrn/Titer Today E13.9 - Other specified diabetes mellitus without complications Glutamic acid decarboxylase Ab Today E13.9 - Other specified diabetes mellitus without complications AMB Hemoglobin A1c Today E13.9 - Other specified diabetes mellitus without complications Referrals Diabetes Education Referral E13.9 - Other specified diabetes mellitus without complications Medications: New Mounjaro (tirzepatide) for 4 weeks 2.5 mg (0.5 mL) subcut QWEEK 2 mL 3RF NS Changed From insulin glargine U-300 conc (Toujeo SoloStar U-300 Insulin) 40 units (0.1333 mL) subcut DAILY 90 days 11.997 mL 0RF To insulin glargine U-300 conc (Toujeo SoloStar U-300 Insulin) 34 units (0.1133 mL) subcut DAILY 13.5 mL 0RF 90 days Discontinued blood-glucose meter (FreeStyle Lite Meter kit) Discontinued Reason: Doctor's Order patient to check blood sugar 3 times daily 1 ea 0RF E13.9 - Other specified diabetes mellitus without complications, Z79.4 - ad terminal makeup operator (current) use of insulin blood-glucose meter (OneTouch Ultra2 Meter) Discontinued Reason: Doctor's Order Patient to check blood sugar 3 times daily 1 ea 3RF Z79.4 - prison (current) use of insulin Coding Level of Care Code Est Pt Level 5 (78739) Complex EM visit Add On G2211 Diagnoses Diabetes 1.5, managed as type 1 E13.9 ad terminal makeup operator (current) use of insulin Z79.4 Time Spent (min) 50
[2025-03-25 11:13] LABS: Glucose, Whole Blood 202 mg/dL (60-115)
== END 2025-03-25 11:38 | disposition home or self-care (01) ==
PROVIDERS: PCP Internal Medicine; Visit Provider Internal Medicine
DX: E13.9 Other specified diabetes mellitus without complications (principal); Z79.4 Long term (current) use of insulin

== ENCOUNTER → 2025-03-25 10:48 | Outpatient (BNVA) | payer MEDICARE, MEDICAID, SELFPAY | PROVIDERS: PCP Internal Medicine; Visit Provider Internal Medicine | DX: E13.9 Other specified diabetes mellitus without complications (principal); Z79.4 Long term (current) use of insulin | CPT/HCPCS: 82947; 83036; 99202 ==

== ENCOUNTER 2025-03-25 11:44 | Outpatient (REF) | payer MEDICARE, MEDICAID, SELFPAY | END 2025-03-25 11:45 | disposition home or self-care (01) | LOC: HO.10HDL 11:44 | PROVIDERS: Visit Provider Internal Medicine | DX: E13.9 Other specified diabetes mellitus without complications (principal) | CPT/HCPCS: 36415; 86341 ==

== ENCOUNTER 2025-04-02 11:06 | Outpatient (AMB) | payer MEDICARE, MEDICAID, SELFPAY ==
[2025-04-02 11:10] VITALS: BP 144/74; PULSE 106; O2SAT 97; BMI 28.9
--- NOTE | 2025-04-02 11:10 | A.OFFPC_ITS ---
Vital Signs 04/02/25 11:10 Height 5 ft 3 in Weight 163 lb 6 oz BMI 28.9 BP 144/74 H Blood Pressure Location Rt brachial Position Sitting Pulse 106 H Pulse Source Pulse Oximeter Pulse Oximetry (%) 97 Intake Visit Reasons: 1 month follow up Sociology Adjunct Instructor Required: No Accompanied by: Self / Same As Patient Allergies duloxetine (From Cymbalta) Allergy (Intermediate, Verified 04/02/25 11:10) Gastrointestinal Upset gabapentin Allergy (Intermediate, Verified 04/02/25 11:10) Gastrointestinal Upset milnacipran (From Savella) Allergy (Intermediate, Verified 04/02/25 11:10) Gastrointestinal Upset naloxegol (Movantik) Allergy (Intermediate, Verified 04/02/25 11:10) Gastrointestinal Upset pregabalin (From Lyrica) Allergy (Intermediate, Verified 04/02/25 11:10) Gastrointestinal Upset Medication List - Last Reconciled 04/02/25 by Tram Darby MD albuterol sulfate 90 mcg/actuation 1 - 2 puffs PO Q4-6H PRN 30 days amlodipine 10 mg PO DAILY 90 days baclofen 10 mg PO BEDTIME blood sugar diagnostic (Accu-Chek Guide test strips) Test blood sugar 3 times per day blood-glucose meter (Accu-Chek Guide Me Glucose Meter) test blood sugar three times per day evolocumab (Repatha SureClick) 140 mg subcut Q2W famotidine 40 mg PO BEDTIME fentanyl 50 mcg/hr 1 patch transdermal Q48H 30 days FreeStyle Lite Strips (blood sugar diagnostic) patient to check blood sugar 3 times daily NS insulin aspart U-100 (Novolog U-100 Insulin aspart) 10 units (0.1 mL) subcut TID 90 days insulin glargine U-300 conc (Toujeo SoloStar U-300 Insulin) 34 units (0.1133 mL) subcut DAILY 90 days lancets (Accu-Chek Softclix Lancets) Test blood sugar 3 times per day latanoprost 0.005% 1 drp ophthalmic (eye) BEDTIME lisinopril 40 mg PO DAILY 90 days Mounjaro (tirzepatide) 2.5 mg (0.5 mL) subcut QWEEK NS nystatin 1 appl topical DAILY 30 days omeprazole 20 mg PO DAILY ondansetron HCl 4 mg PO ONCE PRN 30 days oxycodone 5 mg PO DAILY PRN pen needle, diabetic qd pen needle, diabetic qd pen needle, diabetic qd sucralfate (Carafate) 1 g PO BID PRN Tobacco use date assessed: 03/03/25 Fall risk assessment: No Falls in past year Last assessed Fall Risk: 04/02/25 Dental Screening Dental Screen Date: 01/01/25 HPI 1 month follow up HPI Details History of Present Illness The patient is a 69-year-old female presenting with persistent back pain. Persistent back pain: - The patient reports chronic lower back pain that has been consistently bothersome. - The history of failed back syndrome is noted, and she reports a previous surgery in the back. - The pain has persisted despite the use of several medications. - She experiences increased tiredness, p articularly after taking baclofen at bedtime. - Attempts to manage the pain with a sabi k brace (Velcro Critch) have been minimally effective. - The patient does not report any recent abdominal pain. Elevated blood pressure: - The patient experiences sporadic eleva tions in blood pressure despite current management. - She reports taking Amlodipine 10 mg an d Lisinopril 40 mg, indicating no recent medication changes. - No associated symptoms such as anxiety or emotional distress reported. Medical History: - Failed back syndrome - Hypertension Surgical History: - History of back surgery (specifics not provided) Medications: - Amlodipine 10 mg for hypertension - Lisinopril 40 mg for hypertension - Baclofen for muscle relaxation - Fentanyl 50 mcg patch every other day for chronic pain - Oxycodone for breakthrough pain - Ambien (dose not specified, likely for sleep) Problem List - Failed back syndrome - Essential hypertension - Chronic pain - Elevated liver enzymes Patient Instructions - Consider correlating diet with abdomin al pain and document findings. - Continue use of current medications as directed, and discuss any concerning side effects. - Explore alternative back support optio ns and review product options with family. Review of Systems - General: No fever no chills - Neurological: No headaches no dizziness - Ear nose throat: No sore throat no hearing difficulty no ear pain - Cardiovascular: No syncope, no chest pain, no palpitations - Gastrointestinal: No nausea vomiting or diarrhea Physical Exam General: No acute distress HEENT: No acute findings Neck: Supple Respiratory system: Able to talk in full sentences, no audible wheeze, lungs are clear Cardiovascular: S1-S2 regular in rate and rhythm Gastrointestinal: No pain, belly pain is okay Extremities: No new findings LANGUAGE INTERPRETER: Alert awake oriented x3 motor intact Skin: Normal turgor PFSH Medical History Asthma Hx of irritable bowel syndrome Pain management Narcotic dependence Herniated nucleus pulposus, cervical Hypertension, essential Muscle spasm Failed back syndrome DJD (degenerative joint disease) of thoracic spine Radiculitis of right cervical region Chronic GERD LFTs abnormal Diabetes 1.5, managed as type 1 Surgical History History of liver biopsy Hx of laser iridotomy H/O cataract extraction History of cervical spinal surgery History of lumbar surgery History of esophagogastroduodenoscopy History of colonoscopy History of esophagogastroduodenoscopy History of hysterectomy with oophorectomy Hx of cholecystectomy Family History Father No problems noted. Mother Stomach cancer Social History Housing: House Are you a primary childcare center director to a significant other at home: No Do you presently have visiting nurse or other home services: No Alcohol intake: never Patient Tobacco Use Status: Never used Tobacco e-Cigarette/Vaping Use: Never Used service: No Current occupational status: disabled Cognitive needs: No Hearing needs: No Vision needs: Yes Questionnaire PHQ-9 Over the last 2 weeks, how often have you been bothered by any of the following problems? 1. Little interest or pleasure in doing things: several days 2. Feeling down, depressed, or hopeless: several days 3. Trouble falling or staying asleep, or sleeping too much: several days 4. Feeling tired or having little energy: several days 5. Poor appetite or overeating: more than half the days 6. Feeling bad about yourself - or that you are a failure or have let yourself or your family down: not at all 7. Trouble concentrating on things, such as reading the newspaper or watching television: not at all 8. Moving or speaking so slowly that other people could have noticed. Or the opposite - being so fidgety or restless that you have been moving around a lot more than usual: not at all 9. Thoughts that you would be better off or of hurting yourself in some way: not at all Total score: 6 Depression Screening Interpretation: Negative Depression Screening Done: Yes 01121 - PHQ-9 Billing: Yes Source: Developed by Drs. Tommy Graham, Marnie Ford, Sebastien Vaughn and colleagues, with an educational mayito from [employer]. Thrive Questionnaire Date Thrive assessed: 09/30/24 I am a: Patient What is your living situation today?: I have a steady place to live Within the past 12 months, did the food you bought not last and you didn't have the money to get more?: Never true Within the past 12 months, did you worry whether your food would run out before you got money to buy more?: Never true Do you have trouble paying for medicines?: No Do you have trouble getting transportation to medical appointments?: No Do you have trouble paying your heating and electricity bill?: No Do you have trouble taking care of your child, family member or friend?: No Do you have trouble with day-to-day activities such as bathing, preparing meals, shopping, managing finances, etc.?: No Are you currently unemployed and looking for a job?: No Are you interested in more education?: No Please select the resources that you would like help with: None Currently or been in a relationship where the following occur: No concerns reported THRIVE Score: 0 SACHIN-7 AMB Questionnaire SACHIN-7 Date SACHIN - 7 assessed: 01/29/25 Source: Developed by Drs. Tommy Graham, Marnie Ford, Sebastien Vaughn and colleagues, with an educational mayito from [employer]. Physical exam (Primary Care) Vital Signs: Last Vital Signs Pulse 106 H 04/02/25 11:10 BP 144/74 H 04/02/25 11:10 Pulse Ox 97 04/02/25 11:10 BMI result Body Mass Index 28.9 Tobacco/Smoking Status: Tobacco use Status Tobacco use date assessed 03/03/25 04/02/25 11:14 Patient Tobacco Use Status Never used Tobacco 04/02/25 11:14 e-Cigarette/Vaping Use Never Used 04/02/25 11:14 PHQ-9: PHQ-9 Score PHQ-9: Total score 6 04/02/25 11:36 Depression Screening Interpretation: Negative Thrive Assessment: Date of Thrive Assessment Date Thrive assessed 09/30/24 04/02/25 11:14 Currently or been in a relationship where the following occur: No concerns reported Coding Level of Care Code Est Pt Level 3 (11407) Diagnoses Essential hypertension I10 Right lumbar radiculitis M54.16 Failed back syndrome M96.1 Muscle spasm M62.838 Narcotic dependence F11.20 Additional Codes PHQ-9 - 31688 - PHQ-9 Billing: Yes ([id number]) Assessment & Plan Assessment & Plan (1) Essential hypertension: Code(s): I10 - Essential (primary) hypertension Category: Medical (2) Right lumbar radiculitis: Code(s): M54.16 - Radiculopathy, lumbar region Category: Medical (3) Failed back syndrome: Comment: uses fentanyl patch & oxycodone Code(s): M96.1 - Postlaminectomy syndrome, not elsewhere classified Category: Medical (4) Muscle spasm: Code(s): M62.838 - Other muscle spasm Category: Medical (5) Narcotic dependence: Code(s): F11.20 - Opioid dependence, uncomplicated Category: Medical Plan History of Present Illness The patient is a 69-year-old female presenting with persistent back pain. Persistent back pain: - The patient reports chronic lower back pain that has been consistently bothersome. - The history of failed back syndrome is noted, and she reports a previous surgery in the back. - The pain has persisted despite the use of several medications. - She experiences increased tiredness, particularly after taking baclofen at bedtime. - Attempts to manage the pain with a back brace (Velcro Critch) have been minimally effective. - The patient does not report any recent abdominal pain. Elevated blood pressure: - The patient experiences sporadic elevations in blood pressure despite current management. - She reports taking Amlodipine 10 mg and Lisinopril 40 mg, indicating no recent medication changes. - No associated symptoms such as anxiety or emotional distress reported. Medical History: - Failed back syndrome - Hypertension Surgical History: - History of back surgery (specifics not provided) Medications: - Amlodipine 10 mg for hypertension - Lisinopril 40 mg for hypertension - Baclofen for muscle relaxation - Fentanyl 50 mcg patch every other day for chronic pain - Oxycodone for breakthrough pain - Ambien (dose not specified, likely for sleep) Problem List - Failed back syndrome - Essential hypertension - Chronic pain - Elevated liver enzymes Patient Instructions - Consider correlating diet with abdominal pain and document findings. - Continue use of current medications as directed, and discuss any concerning side effects. - Explore alternative back support options and review product options with family. Medications: Refilled fentanyl 50 mcg/hr 1 patch transdermal Q48H 15 ea 0RF 30 days F11.20 - Opioid dependence, uncomplicated, M50.20 - Other cervical disc displacement, unspecified cervical region, M96.1 - Postlaminectomy syndrome, not elsewhere classified, R52 - Pain, unspecified
--- OUTSIDE RECORDS SUMMARY | 2025-04-02 12:51 | XMS_ITS | Patient Health Record ---
Author Organization [facility] Address [address] [place] [address] Care Team Providers Care Production Coordinator Name Role Phone Wilner GONSALES, Asma Primary Care Provider Tommy Almonte [phone] Allergies Allergen (clinical drug ingredient) Drug/Non Drug Allergy documented on EMR Reaction Allergy Type Onset Date Status naloxegol Movantik Unknown Drug Allergy Active Results Component Value Reference Range Notes Complete Blood Count Auto Di ff Reviewed date:11/23/2024 06:53:58 PM Interpretation: Performing Lab:[facility], [address] [place] [phone] Notes/Report: White Blood Count 8.3 4.8-10.8 X10*3/uL [...] INR Reviewed date:11/23/2024 06:54:18 PM Interpretation: Performing Lab:[address] [phone] Notes/Report: Prothrombin Time 10.7 10.9-12.4 SEC INTERNATIONAL [...] Time Reviewed date:11/23/2024 06:54:09 PM Interpretation: Performing Lab:[address] [phone] Notes/Report: Partial Thromboplastin Time 32.4 26.0-36.8 SEC For information regarding the monitoring of direct thrombin inhibitors, please refer to Pharmacy. Liver Panel Reviewed date:2024 10:00:04 PM Interpretation: Performing Lab:[address] [address] Notes/Report: Bilirubin Total 0.7 0.0-1.0 mg/dL Bilirubin Direct 0.3 0.0-0.5 mg/dL Aspartate Amino Transferase 110 5-31 U/L Alanine Aminotransferase 189 0-31 U/L Total Protein 8.2 6.5-8.0 g/dL Albumin Level 4.1 3.5-5.0 g/dL Alkaline Phosphatase 406 39-117 U/L Liver Fibrosis Pnl Reviewed date:11/30/2024 06:17:11 PM Interpretation: Performing Lab:[facility], [address] [place] [phone] Notes/Report: Liver Fibrosis Score 0.35 Liver Fibrosis [...] a>0.62 and a<=1.00 : A3 (severe activity) ZJF-Hyula-6-Macroglobulin 164 106-279 mg/dL FIB-Haptoglobin 170 43-212 mg/dL FIB-Apolipoprotein A1 227 101-198 mg/dL FIB-Total Bilirubin 0.6 0.2-1.2 mg/dL FIB-GGT 1488 3-65 U/L FIB-ALT 143 6-29 U/L Reference ID [id number] Footnote SEE NOTE The reliability of results [...] The performance characteristics have been determined by [facility]. It has not been cleared or approved by the U.S. Food and Drug Administration. Performance characteristics refer to the analytical performance of the test. [employer], the associated logo, [employer] and all associated [employer] d[employer] are the registered trademarks of [employer]. All third democrat dong - (R) and (TM) - are the property of their respective owners. (C) 8096-0254 [employer]. All rights reserved. THIS TEST WAS PERFORMED AT: [facility] [place] [address] [place] [address] CRISTINA GIORDANO MD,PHD,PITA Complete Blood Count Auto Di ff Reviewed date:2024 09:08:47 AM Interpretation: Performing Lab:[facility], [address] [place] [phone] Notes/Report: White Blood Count 12.3 4.8-10.8 X10*3/uL [...] INR Reviewed date:2024 09:08:33 AM Interpretation: Performing Lab:[facility], [address] [place] [phone] Notes/Report: Prothrombin Time 10.6 10.9-12.4 SEC INTERNATIONAL [...] Time Reviewed date:2024 09:08:25 AM Interpretation: Performing Lab:[facility], [address] [place] [phone] Notes/Report: Partial Thromboplastin Time 32.7 26.0-36.8 SEC For information regarding the monitoring of direct thrombin inhibitors, please refer to Pharmacy. Basic Metabolic Panel Reviewed date:2024 09:08:12 AM Interpretation: Performing Lab:[facility], [address] [place] [phone] Notes/Report: Sodium 140 135-145 mmol/L Potassium 5.3 [...] Blood Reviewed date:2024 09:08:54 AM Interpretation: Performing Lab:[facility], [address] [place] [phone] Notes/Report: Glucose, Whole Blood 123 60-115 mg/dL METER # : [id number] Pathology (Not yet reviewed by provider) Interpretation: Performing Lab:[facility], [address] [place] [phone] Notes/Report: US biopsy liver Reviewed date:12/03/2024 12:41:31 AM Interpretation: Performing Lab: Notes/Report: [address] [place] [address] Ultrasound Report Signed Patient: Syeda Doll MR#: [id number] : 1955 Acct:[id number] Age/Sex: 68 / F ADM Date: 11/25/24 Loc: [facility] Attending Dr: Tommy Roberts MD Ordering Physician: Tommy Roberts MD Date of Service: 11/25/24 Procedure(s): US biopsy liver Accession Number(s): [id number] cc: Tram Darby MD; Tommy Roberts MD [...] 11/25/24 1626 DD/ 1500 TD/TT: 11/25/24 1545 Delinquent Tax Collection Assistant: Type and Screen Reviewed date:2024 09:08:19 AM Interpretation: Performing Lab:[facility], [address] [place] [phone] Notes/Report: Blood Type OP Antibody Screen NEGATIVE [...] 20 MG TAKE 1 CAPSULE BY MO [facility] EVERY DAY for 90 Not-Taking MiraLax 17 [...] Status Risk Notes Problem Colon cancer screening (836554053) Colon cancer screening (Z12.11) Active confirmed Problem 658894081 Encounter for screening for malignant neoplasm of colon (Z12.11) Active confirmed Problem 637433663 History of adenomatous polyp of colon (Z86.010) Active confirmed Problem Constipation (51696869) Constipation (K59.00) Active confirmed Problem 368839802 Abdominal bloati ng (R14.0) Active confirmed Problem Early satiety (122869812) Early satiety (R68.81) Active confirmed Problem Elevated liver enzymes level (793586919) Elevated liver function tests (R79.89) Active confirmed Problem 952301152 Elevated liver enzymes (R74.8) Active confirmed Problem Fatty liver (096817214) Fatty liver (K76.0) Active confirmed Problem 434415214 Gastroesophageal reflux disease, esophagitis presence not specified (K21.9) Active confirmed Problem Serum alpha-fetoprote in level elevated (468581197) Elevated alpha fetoprotein (R77.2) Active confirmed Problem 592170350 Abdominal pain, generalized (R10.84) Active confirmed Problem Alkaline phosphatase raised (885246397) Elevated alkaline phosphatase level (R74.8) Active confirmed Problem 08420597 Irritable bowel syndrome, unspecified type (K58.9) Active confirmed Problem 962034278 Abdominal pain, RUQ (right upper quadrant) (R10.11) Active confirmed Problem Abnormal findings diagnostic imaging of liver and biliary tract (289441837) Abnormal ultrasound of biliary tract (R93.2) Active confirmed Vital Signs Temperature 98.6 degrees Fahrenheit 11/13/2024 Blood pressure diastolic 01 mm Hg 11/13/2024 Height 63 in 11/13/2024 Blood pressure systolic 001 mm Hg 11/13/2024 Weight 161 lbs 11/13/2024 BMI 28.52 kg/m2 11/13/2024 Encounters Encounter Location Date Provider Diagnosis [facility] [address] [place] [phone] 11/13/2024 Tommy Roberts Elevated liver enzymes R74.8 and Fatty liver K76.0 [facility] [address] [place] [phone] 11/16/2024 Tommy Roberts [facility] [address] [place] [phone] 12/02/2024 Tommy Roberts Elevated liver function tests [...] 11/13/2024 LIVER PROFILE 12/02/2024 LIVER PROFILE 08/06/2023 AMYLASE 10/07/2019 LIPASE 10/07/2019 [...] Alisa Roberts , 04/14/2025 01:20:00 PM, [address] [facility], [address], [place], [address], Insurance Providers Payer Name Payer Address Payer Phone Subscriber Number Group Number Insured Name Patient Relationship to Insured Coverage Start Date Coverage End Date MEDICARE OF [employer] [address] [place] [address] [id number] SYEDA DOLL Self - patient is the insured 0 MEDICAID OF [facility] [address] [place] [phone] [id number] SYEDA DOLL Self - patient is the insured Medical (General) History Medical History History ICD Code IDDM Hypertension Denies HI,CVA,Lung disease,renal disease Neg. colonoscopy in 2004 wit [...]
== END 2025-04-02 11:40 | disposition home or self-care (01) ==
LOC: HO.HMCC 11:07
PROVIDERS: PCP Internal Medicine; Visit Provider Internal Medicine
DX: I10 Essential (primary) hypertension (principal); M54.16 Radiculopathy, lumbar region; M96.1 Postlaminectomy syndrome, not elsewhere classified; F11.20 Opioid dependence, uncomplicated; M62.838 Other muscle spasm

== ENCOUNTER → 2025-04-02 11:06 | Outpatient (BNVA) | payer MEDICARE, MEDICAID, SELFPAY | PROVIDERS: PCP Internal Medicine; Visit Provider Internal Medicine | DX: I10 Essential (primary) hypertension (principal); R03.0 Elevated blood-pressure reading, without diagnosis of hypertension; M96.1 Postlaminectomy syndrome, not elsewhere classified; M54.16 Radiculopathy, lumbar region; M62.838 Other muscle spasm; F11.20 Opioid dependence, uncomplicated | CPT/HCPCS: 96127; 99212 ==

== ENCOUNTER 2025-04-14 14:09 | Outpatient (REF) | payer MEDICARE, MEDICAID, SELFPAY ==
[2025-04-14 15:22] LABS: Alanine Aminotransferase 111 U/L (0-31); Albumin Level 4.5 g/dL (3.5-5.0); Alkaline Phosphatase 378 U/L (39-117); Aspartate Amino Transferase 48 U/L (5-31); Total Protein 8.3 g/dL (6.5-8.0)
== END 2025-04-14 14:10 | disposition home or self-care (01) ==
LOC: HO.LABR 14:09
PROVIDERS: PCP Internal Medicine; Visit Provider Internal Medicine
DX: K74.00 Hepatic fibrosis, unspecified (principal); K76.0 Fatty (change of) liver, not elsewhere classified; R79.89 Other specified abnormal findings of blood chemistry
CPT/HCPCS: 36415; 80076

== ENCOUNTER 2025-04-24 03:51 | Observation (INO) | payer MEDICARE, MEDICAID, SELFPAY ==
--- OUTSIDE RECORDS SUMMARY | 2025-04-14 09:20 | XMS_ITS ---
Author Organization [facility] Address [address] [place] [address] Care Team Providers Care Flume Tender Name Role Phone Wilner GONSALES, [facility] Primary Care Provider Tommy Almonte [phone] Allergies Allergen (clinical drug ingredient) Drug/Non Drug Allergy documented on EMR Reaction Allergy Type Onset Date Status naloxegol Movantik Unknown Drug Allergy Active REASON FOR VISIT Patient presents today for elevated lft's gerd Medications Medication SIG (Take, Route, Frequency, Duration) Notes Start Date End Date Status MiraLax 17 GM/SCOOP 1 capful from a 238g m bottle to the measured line in 8 ounces of water Orally Twice a day; Duration: 30 days 08/16/2022 Active Metamucil 0.52 GM 2 capsules with 8 ou nces of liquid Orally Once or twice a day for constipation; Duration: 30 days 08/16/2022 Active Dicyclomine HCl 10 MG TAKE 1-2 CAPS EVER Y 6 HOURS NEEDED ABDOMINAL CRAMPS/BLOATING/DISCOMFO RT; Duration: 90 Active Ursodiol 500 MG 1 tablet Orally Twic e a day; Duration: 30 days 12/04/2024 Not-Takin g Omeprazole 20 MG TAKE 1 CAPSULE BY MO UTH EVERY DAY; Duration: 90 Not-Taki ng Famotidine 20 MG TAKE 1 TABLET BY DAVI TH EVERYDAY AT BEDTIME Orally Twice a day Active tiZANidine HCl Activ e BD Pen Needle Mini U/F Active Ibuprofen PRN Active Latanoprost Active Mounjaro 2.5 MG/0.5ML as directed Subcutaneous Active amLODIPine Besylate 10 MG 1 tablet Orally Once a day Active fentaNYL 50 MCG/HR (Schedule II Drug) A PPLY 1 PATCH TO THE SKIN AND CHANGE EVERY OTHER DAY Transdermal; Duration: 30 Active Lisinopril 40 MG TAKE 1 TABLET BY DAVI EVERY DAY Orally Once a day Active Lantus 100 UNIT/ML 30 Subcutaneous QHS Active Immunizations Vaccine Route Administration Date Status Comme nts Influenza Unknown 04/14/2025 Refused Social History Tobacco Use: Social History [...] Problem Status W/U Status Risk Notes Problem Hepatic fibrosis (disorder) (89171592) Liver fibrosis (K74.00) Active confirmed Vital Signs Temperature 98.9 degrees Fahrenheit 04/14/20 25 Blood pressure systolic 001 mm Hg 04/14/20 25 Blood pressure diastolic 01 mm Hg 025 Height 63 in 04/14/2025 Weight 159.4 lbs 04/14/2025 BMI 28.23 kg/m2 04/14/2025 Encounters Encounter Location Date Provider Diagnosis [facility] [address] [facility] [address] [place] [phone] 04/14/2025 Tommy Roberts Liver fibrosis K74.00 ; Colon cancer screening Z12.11 ; Fatty liver K76.0 and Elevated liver function tests R79.89 Assessments Encounter Date Diagnosis (ICD Code) Assessment Notes Treatment Notes Treatment Clinical Notes Section Notes 04/14/2025 Liver fibrosis (ICD-10 - K74.00) 04/14/2025 Colon cancer screening (ICD-10 - Z12.11) Need Cologuard test results from Dr. Darby's office__done in the past year or so 04/14/2025 Fatty liver (ICD-10 - K76.0) 04/14/2025 Elevated liver function tests (ICD-10 - R79.89) Plan Of Treatment Treatment Notes Assessment Notes Colon cancer screening Need Cologuard te st results from Dr. Darby's office__done in the past year or so Pending Test Test Name Order Date LIVER PROFILE 04/14/2025 Next Appt Details Follow Up: Spring 2025, Reas on: Provider Name:Tommy Cuellar Armando , 10/13/2025 01:20:00 PM, [address] [facility], [address], [place], [address], Progress Notes * ALETHEA DOLL MDOB:1955 (69 yo F)Acc No.[id number]:04/14/2025 Progress Notes Patient: ALETHEA BENNETT Provider: Yahir Roberts MD :1955 A ge:69 Y S ex:Female Date:04/14/2025 Address:[address] [place], [place] [id number] Pcp:Tram Darby MD Subjective: * Chief Complaints: * 1 . Patient presents today for elevated lft's gerd. * Medical History: I DDM, Hypertension, Denies CO,CVA,Lung disease,renal disease, Neg. colonoscopy in 2004 with me and a negative colonoscopy [place] [address] Nguyen, EGD in [address] Nguyen- mild gastritis with biopsies negative for H. pylori., Elevated LFTs in 2018- neg. w/u, including MRCP- fatty liver , Back pain, Colonoscopy in November of 2020 revealed a small tubular adenoma that was removed, but the prep was suboptimal. Further attempts at rescheduling a colonoscopy with a better clean out have been unsuccessful due to her inability to tolerate the bowel prep, Normal Nuclear medicine Gastric emptying study 05/2022, Chronic constipation, most likely relation to her use of a fentanyl patch. * Surgical History: C holecystectomy > 20 years ago , MELONIE , Lower back spinal fusion , Cervical disc surgery- Dr. Heath 07/2020, Right Cataract . * Family History: F ather: . M other: , afib, diagnosed with HTN (hypertension). S iblings: alive, brother hep c. Denies family history of colon cancer. No family history of liver cancer. Mother had stomach cancer and her brother had bladder cancer. * Social History: T obacco Use: T obacco Use/Smoking P atient is a n onsmoker. D rugs/Alcohol: A lcohol Screen D id you have a drink containing alcohol in the past year? N o, P oints 0 , I nterpretation N egative. M iscellaneous: M arital status: . 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 N onsmoker; no sig alcohol. * Medications: T aking Mounjaro 2.5 MG/0.5ML Solution Auto-injector as directed Subcutaneous , Taking amLODIPine Besylate 10 MG Tablet 1 tablet Orally Once a day , Taking fentaNYL 50 MCG/HR Patch 72 Hour (Schedule II Drug) APPLY 1 PATCH TO THE SKIN AND CHANGE EVERY OTHER DAY Transdermal , Taking Lisinopril 40 MG Tablet TAKE 1 TABLET BY MOUTH EVERY DAY Orally Once a day , Taking Lantus 100 UNIT/ML Solution 30 Subcutaneous QHS , Taking Famotidine 20 MG Tablet TAKE 1 TABLET BY MOUTH EVERYDAY AT BEDTIME Orally Twice a day , Taking tiZANidine HCl , Taking BD Pen Needle Mini U/F , Taking Ibuprofen , Notes to Pharmacist: PRN, Taking Latanoprost , Taking MiraLax 17 GM/SCOOP Powder 1 capful from a 238gm bottle to the measured line in 8 ounces of water Orally Twice a day , Taking Metamucil 0.52 GM Capsule 2 capsules with 8 ounces of liquid Orally Once or twice a day for constipation , Taking Dicyclomine HCl 10 MG Capsule TAKE 1-2 CAPS EVERY 6 HOURS NEEDED ABDOMINAL CRAMPS/BLOATING/DISCOMFORT , Not-Taking/PRN Ursodiol 500 MG Tablet 1 tablet Orally Twice a day , Not- Taking/PRN Omeprazole 20 MG Capsule Delayed Release TAKE 1 CAPSULE BY MOUTH EVERY DAY , Medication List reviewed and reconciled with the patient * Allergies: M eleanor. Objective: * Vitals: W t:159.4lbs, Ht: 63 in, BMI: 28.23 Index, BP:001/01mm Hg, Temp:98.9, Wt-k.3. Assessment: * Assessment: 1. L iver fibrosis - K74.00 (Primary) 2 . C olon cancer screening - Z12.11? 3. F atty liver - K76.0 4 . E levated liver function tests - R79.89 Plan: * Treatment: 2.?Colon cancer screening? Notes: Need Cologuard test results from Dr. Darby's office__done in the past year or so??3.?Fatty liver?LAB: LIVER PROFILE* Do this lab test every 2 mon ths starting in 04/2025 4.?Elevated liver function tests?LAB: LIVER PROFILE* Do this lab test every 2 mon ths starting in 04/2025 * Immunizations: Influenza (Not administered - Refused: Patient decision) * Preventive Medicine: Counseling: C are goal follow-up plan: A whitley Normal BMI Follow-up D ietary management education, guidance, and counseling, B CO management provided Y es. Urinary Incontinence: U rinary Incontinence A ssessment: A bsent, P uriel of care documented: N o, reason not specified. Screenings: F all Risk Screening F all Risk Assessment: N o falls in the past year, S creening: N o falls in the past year, A ssessment: N ot performed, no reason specified, P uriel of Care: N ot documented, no reason specified. * Follow Up: S 2025 * * The named appointment provid er may or may not be the originator of this progress note, and it is not deemed complete until electronically signed by the appointment provider. Sign off status: Pending * Provider: Yahir Roberts MD Date: Generated for Zohreh arzate/Jasper/Allyson on: 06:32 AM EDT
--- NOTE | 2025-04-24 | ECG_ITS ---
Test Reason : TACHY Blood Pressure : */* mmHG Vent. Rate : 142 BPM Atrial Rate : 142 BPM P-R Int : 112 ms QRS Dur : 78 ms QT Int : 354 ms P-R-T Axes : * 72 70 degrees QTcB Int : 544 ms Sinus tachycardia Nonspecific T wave abnormality Abnormal ECG When compared with ECG of 04-Aug-2023 14:45, Vent. rate has increased by 53 bpm Referred By: Generic ED Physician Electronically Signed By: Aman Marcelino
--- NOTE | ~2025-04-24 | CT_ITS ---
CLINICAL HISTORY: Upper abdominal pain, leukocytosis, vomiting. CT abdomen and pelvis with contrast Comparison: 09/25/2023 Findings: The lung bases are clear. Solid organs are within normal limits. There are no abnormal findings in the gallbladder fossa. No renal stones. No bowel obstruction, pneumoperitoneum, or pneumatosis. There is anterior pararenal retroperitoneal edema possibly related to peptic ulcer disease or duodenitis. Pelvic contents unremarkable. Normal appendix. The bones are intact. IMPRESSION: Possible peptic ulcer disease or duodenitis. Clinical follow-up recommended. This document has been electronically signed by: Héctor Parker MD on 04/24/2025 09:12:19
[2025-04-24 04:01] VITALS: BP 151/96; PULSE 137; RESP 20; TEMP 37; O2SAT 100; BMI 24.0
[2025-04-24 04:33] LABS: Hematocrit 45.7 % (37.0-47.0); Hemoglobin 15.3 g/dl (12.0-16.0); Imm Gran Abs Auto 0.09 X10*3/uL (0.00-0.03); Imm Gran Pct Auto 0.5 % (0.0-0.4); Lymphocytes Absolute Auto 1.6 X10*3/uL (1.2-4.9); MANUAL DIFF FLAG SCAN; Mean Corpuscular HGB Conc 33.5 g/dl (31.0-35.0); Mean Corpuscular Hemoglobin 29.7 pg (27.0-33.0); Mean Corpuscular Volume 88.7 fL (80.0-98.0); NRBC Abs Auto 0.000 X10*3/uL (0.0-0.012); NRBC Pct Auto 0.0 /100WBC (0.0-0.2); PLT CLUMP 1; Red Blood Count 5.15 X10*6/uL (4.20-5.50); SCAN SMEAR FLAG 1
[2025-04-24 04:37] LABS: White Blood Count 19.1 X10*3/uL (4.8-10.8)
[2025-04-24 04:42] LABS: Alanine Aminotransferase 98 U/L (0-31); Albumin Level 4.5 g/dL (3.5-5.0); Alkaline Phosphatase 344 U/L (39-117); Amylase 57 U/L (28-100); Anion Gap 18 (12-20); Aspartate Amino Transferase 46 U/L (5-31); Blood Urea Nitrogen 17 mg/dL (9-16); Calcium 10.1 mg/dL (8.4-10.2); Carbon Dioxide 21 mmol/L (22-29); Chloride 105 mmol/L (96-108); Creatinine Clr Calc Pharmacy 50.0; Estimated Glomerular Filt Rate 56; Lipase 43 U/L (8-78); Potassium 3.8 mmol/L (3.3-5.1); Sodium 140 mmol/L (135-145); Total Protein 8.7 g/dL (6.5-8.0)
[2025-04-24 04:53] LABS: Platelet Count 171 X10*3/uL (160-400)
[2025-04-24 05:39] VITALS: BP 179/83; PULSE 140; RESP 22; O2SAT 97
--- NOTE | 2025-04-24 06:21 | PC.NURSE ---
MD Glover gave RN Libra verbal order to put a x1 dose of zofran for pt.
--- OUTSIDE RECORDS SUMMARY | 2025-04-24 06:33 | XMS_ITS | Patient Health Record ---
Author Organization [facility] Address [address] [place] [address] Care Team Providers Care Lead Installer Name Role Phone Wilner GONSALES, Asma Primary Care Provider Tommy Almonte [phone] Allergies Allergen (clinical drug ingredient) Drug/Non Drug Allergy documented on EMR Reaction Allergy Type Onset Date Status naloxegol Movantik Unknown Drug Allergy Active Results Component Value Reference Range Notes Complete Blood Count Auto Di ff Reviewed date:11/23/2024 06:53:58 PM Interpretation: Performing Lab:[facility], [address] [place] [phone] Notes/Report: White Blood Count 8.3 4.8-10.8 X10*3/uL [...] INR Reviewed date:11/23/2024 06:54:18 PM Interpretation: Performing Lab:[address] [address] Notes/Report: Prothrombin Time 10.7 10.9-12.4 SEC INTERNATIONAL [...] Time Reviewed date:11/23/2024 06:54:09 PM Interpretation: Performing Lab:[address] [address] Notes/Report: Partial Thromboplastin Time 32.4 26.0-36.8 SEC For information regarding the monitoring of direct thrombin inhibitors, please refer to Pharmacy. Liver Panel Reviewed date:2024 10:00:04 PM Interpretation: Performing Lab:[address] [address] Notes/Report: Bilirubin Total 0.7 0.0-1.0 mg/dL Bilirubin Direct 0.3 0.0-0.5 mg/dL Aspartate Amino Transferase 110 5-31 U/L Alanine Aminotransferase 189 0-31 U/L Total Protein 8.2 6.5-8.0 g/dL Albumin Level 4.1 3.5-5.0 g/dL Alkaline Phosphatase 406 39-117 U/L Liver Fibrosis Pnl Reviewed date:11/30/2024 06:17:11 PM Interpretation: Performing Lab:[facility], [address] [place] [address] Notes/Report: Liver Fibrosis Score 0.35 Liver Fibrosis [...] a>0.62 and a<=1.00 : A3 (severe activity) CKP-Zyjhx-6-Macroglobulin 164 106-279 mg/dL FIB-Haptoglobin 170 43-212 mg/dL FIB-Apolipoprotein A1 227 101-198 mg/dL FIB-Total Bilirubin 0.6 0.2-1.2 mg/dL FIB-GGT 1488 3-65 U/L FIB-ALT 143 6-29 U/L Reference ID [id number] Footnote SEE NOTE The reliability of results [...] The performance characteristics have been determined by [facility]. It has not been cleared or approved by the U.S. Food and Drug Administration. Performance characteristics refer to the analytical performance of the test. [employer], the associated logo, [employer] and all associated [employer] dong are the registered trademarks of [employer]. All third democrat dong - (R) and (TM) - are the property of their respective owners. (C) 2349-2577 [employer]. All rights reserved. THIS TEST WAS PERFORMED AT: [facility] [address] [place] [address] CRISTINA GIORDANO MD,PHD,PITA Complete Blood Count Auto Di ff Reviewed date:2024 09:08:47 AM Interpretation: Performing Lab:[facility], [address] [place] [address] Notes/Report: White Blood Count 12.3 4.8-10.8 X10*3/uL [...] INR Reviewed date:2024 09:08:33 AM Interpretation: Performing Lab:[facility], [address] [place] [address] Notes/Report: Prothrombin Time 10.6 10.9-12.4 SEC INTERNATIONAL [...] Time Reviewed date:2024 09:08:25 AM Interpretation: Performing Lab:[facility], [address] [place] [address] Notes/Report: Partial Thromboplastin Time 32.7 26.0-36.8 SEC For information regarding the monitoring of direct thrombin inhibitors, please refer to Pharmacy. Basic Metabolic Panel Reviewed date:2024 09:08:12 AM Interpretation: Performing Lab:[facility], [address] [place] [address] Notes/Report: Sodium 140 135-145 mmol/L Potassium 5.3 [...] Blood Reviewed date:2024 09:08:54 AM Interpretation: Performing Lab:[facility], [address] [place] [address] Notes/Report: Glucose, Whole Blood 123 60-115 mg/dL METER # : [id number] Pathology (Not yet reviewed by provider) Interpretation: Performing Lab:[facility], [address] [place] [address] Notes/Report: US biopsy liver Reviewed date:12/03/2024 12:41:31 AM Interpretation: Performing Lab: Notes/Report: [address] [place] [address] Ultrasound Report Signed Patient: Syeda Doll MR#: [id number] : 1955 Acct:[id number] Age/Sex: 68 / F ADM Date: 11/25/24 Loc: [facility] Attending Dr: Tommy Roberts MD Ordering Physician: Tommy Roberts MD Date of Service: 11/25/24 Procedure(s): US biopsy liver Accession Number(s): [id number] cc: Tram Darby MD; Tommy Roberts MD [...] 11/25/24 1626 DD/ 1500 TD/TT: 11/25/24 1545 Heart Nurse: Type and Screen Reviewed date:2024 09:08:19 AM Interpretation: Performing Lab:[facility], [address] [place] [phone] Notes/Report: Blood Type OP Antibody Screen NEGATIVE Liver Panel (Not yet reviewe d by provider) Interpretation: Performing Lab:[facility], [address] [place] [address] Notes/Report: Bilirubin Total 0.4 0.0-1.0 mg/dL Bilirubin Direct 0.2 0.0-0.5 mg/dL Aspartate Amino Transferase 48 5-31 U/L Alanine Aminotransferase 111 0-31 U/L Total Protein 8.3 6.5-8.0 g/dL Albumin Level 4.5 3.5-5.0 g/dL Alkaline Phosphatase 378 39-117 U/L Reason For Referral No Information Medications Medication SIG (Take, Route, Frequency, Duration) Notes Start Date End Date Status Famotidine 20 MG TAKE 1 TABLET BY DAVI TH EVERYDAY AT BEDTIME Orally Twice a day Active tiZANidine HCl Activ e BD Pen Needle Mini U/F Active Ibuprofen PRN Active Latanoprost Active MiraLax 17 GM/SCOOP 1 capful from a 238g m bottle to the measured line in 8 ounces of water Orally Twice a day; Duration: 30 days 08/16/2022 Active Mounjaro 2.5 MG/0.5ML as directed Subcutaneous Active Metamucil 0.52 GM 2 capsules with 8 ou nces of liquid Orally Once or twice a day for constipation; Duration: 30 days 08/16/2022 Active amLODIPine Besylate 10 MG 1 tablet Orally Once a day Active Dicyclomine HCl 10 MG TAKE 1-2 CAPS EVER Y 6 HOURS NEEDED ABDOMINAL CRAMPS/BLOATING/DISCOMFO RT; Duration: 90 Active fentaNYL 50 MCG/HR (Schedule II Drug) A PPLY 1 PATCH TO THE SKIN AND CHANGE EVERY OTHER DAY Transdermal; Duration: 30 Active Ursodiol 500 MG 1 tablet Orally Twic e a day; Duration: 30 days 12/04/2024 Not-Caneloin g Lisinopril 40 MG TAKE 1 TABLET BY DAVI TH EVERY DAY Orally Once a day Active Omeprazole 20 MG TAKE 1 CAPSULE BY [facility] EVERY DAY; Duration: 90 Not-Taki ng Lantus 100 UNIT/ML 30 Subcutaneous QHS Active Immunizations Vaccine Route Administration Date Status Comme nts Influenza Unknown 06/20/2018 Administered Influenza Unknown 10/03/2018 Refused Influenza Unknown 04/20/2020 Refused Influenza Unknown 11/15/2023 Refused Influenza Unknown 04/14/2025 Refused Social History Tobacco [...] Status Risk Notes Problem Colon cancer screening (114035666) Colon cancer screening (Z12.11) Active confirmed Problem Screening for malignant neoplasm of colon (428245722) Encounter for screening for malignant neoplasm of colon (Z12.11) Active confirmed Problem History of adenomatous polyp of colon (805668856) History of adenomatous polyp of colon (Z86.010) Active confirmed Problem Constipation (21155619) Constipation (K59.00) Active confirmed Problem Abdominal bloating (123066690) Abdominal bloating (R14.0) Active confirmed Problem Early satiety (778339423) Early satiety (R68.81) Active confirmed Problem Elevated liver enzymes level (482908162) Elevated liver function tests (R79.89) Active confirmed Problem Elevated liver enzymes level (114501550) Elevated liver enzymes (R74.8) Active confirmed Problem Fatty liver (606495745) Fatty liver (K76.0) Active confirmed Problem Gastroesophageal reflux disease (924572198) Gastroesophageal reflux disease, esophagitis presence not specified (K21.9) Active confirmed Problem Serum alpha-fetoprotein level elevated (265641311) Elevated alpha fetoprotein (R77.2) Active confirmed Problem Generalized abdominal pain (473983950) Abdominal pain, generalized (R10.84) Active confirmed Problem Alkaline phosphatase raised (933302681) Elevated alkaline phosphatase level (R74.8) Active confirmed Problem Irritable bowel syndrome (17909541) Irritable bowel syndrome, unspecified type (K58.9) Active confirmed Problem Right upper quadrant pain (978030975) Abdominal pain, RUQ (right upper quadrant) (R10.11) Active confirmed Problem Hepatic fibrosis (disorder) (19855773) Liver fibrosis (K74.00) Active confirmed Problem Abnormal findings diagnostic imaging of liver and biliary tract (828772001) Abnormal ultrasound of biliary tract (R93.2) Active confirmed Vital Signs Temperature 98.9 degrees Fahrenheit 04/14/2025 Blood pressure diastolic 01 mm Hg 04/14/2025 Height 63 in 04/14/2025 Blood pressure systolic 001 mm Hg 04/14/2025 Weight 159.4 lbs 04/14/2025 BMI 28.23 kg/m2 04/14/2025 Encounters Encounter Location Date Provider Diagnosis [facility] [address] [place] [phone] 04/14/2025 Tommy Roberts Liver fibrosis K74.00 ; Colon cancer screening Z12.11 ; Fatty liver K76.0 and Elevated liver function tests R79.89 [facility] [address] [place] [phone] 11/13/2024 Tommy Roberts Elevated liver enzymes R74.8 and Fatty liver K76.0 [facility] [address] [place] [phone] 11/16/2024 Tommy Roberts [facility] [address] [place] [phone] 12/02/2024 Tommy Roberts Elevated liver function tests R79.89 and Fatty liver K76.0 Assessments Encounter Date Diagnosis (ICD Code) Assessment Notes Treatment Notes Treatment Clinical Notes Section Notes 04/14/2025 Colon cancer screening (ICD-10 - Z12.11) Need Cologuard test results from Dr. Darby's office__done in the past year or so 04/14/2025 Liver fibrosis (ICD-10 - K74.00) 11/13/2024 Elevated liver enzymes (ICD-10 - R74.8) [...] R79.89) 12/02/2024 Fatty liver (ICD-10 - K76.0) 04/14/2025 Fatty liver (ICD-10 - K76.0) 11/13/2024 Fatty [...] to keep you advised of her progress.. 04/14/2025 Elevated liver function tests (ICD-10 - R79.89) Plan Of Treatment Pending Test Test Name Order Date BUN 09/06/2023 LIVER PROFILE 12/02/2024 LIVER PROFILE 08/06/2023 LIVER PROFILE 04/14/2025 LIVER PROFILE 07/03/2018 LIVER PROFILE 11/15/2023 LIVER PROFILE 10/07/2019 LIVER PROFILE 04/20/2020 LIVER PROFILE 10/11/2020 LIVER PROFILE 11/13/2024 AMYLASE 10/07/2019 LIPASE 10/07/2019 GGT 08/06/2023 CBC w DIFF 10/07/2019 CBC w DIFF 11/13/2024 PROTHROMBIN TIME (PT, INR) 10/07/2019 ALPHA-FETOPROTEIN,TUMOR MARKER 4 MRI ABD W&WO CONTRAST 09/06/2023 NUC GASTRIC ANTRUM EMPTYING 04/24/2022 US LIVER BIOPSY CORE GUIDE 11/13/2024 Prothrombin Time INR 11/13/2024 Partial Thromboplastin Time 11/13/2024 Liver Panel 04/14/2025 Liver Panel 01/03/2024 Creatinine 09/06/2023 Liver Fibrosis Pnl 11/13/2024 Liver Fibrosis Pnl 08/06/2023 Mitochondrial Antibody 11/15/2023 Liver Kidney Microsomal Ab 11/15/2023 Pathology 11/25/2024 US abdomen comp w elastography 4 Future Test Test Name Order Date COLONOSCOPY 10/11/2020 COLONOSCOPY 06/07/2021 Next Appt Details Provider Name:Tommy Roberts , 10/13/2025 01:20:00 PM, [address] [place] [address], [address], [place], [address], Insurance Providers Payer Name Payer Address Payer Phone Subscriber Number Group Number Insured Name Patient Relationship to Insured Coverage Start Date Coverage End Date [place] OF [place] [address] [place] [address] [phone] [id number] SYEDA DOLL Self - patient is the insured 0 MEDICA[employer] OF [employer] [address] [place] [phone] [id number] SYEDA DOLL Self - patient is the insured Medical (General) History Medical History History ICD Code IDDM Hypertension Denies AL,CVA,Lung disease,renal disease Neg. colonoscopy in 2004 wit h me and a negative colonoscopy [place] [address] Nguyen EGD [place] [address] Nguyen- mild gastritis with biopsies negative for H. pylori. Elevated LFTs in 2018- neg. w/u, includi ng MRCP- fatty liver Back pain Colonoscopy in November [...] History Surgery Date(Month/Year) Right Cataract Cervical disc surgery- Dr. Heath 07/2020 Lower back spinal fusion MELONIE Cholecystectomy > 20 years ago
--- NOTE | 2025-04-24 07:00 | ED_ITS ---
HPI - Abdominal Pain General Chief Complaint: Abdominal Pain Stated Complaint: stomach pain Time Seen by Provider: 04/24/25 06:44 Source: patient and family (Daughter) Mode of arrival: ambulatory Limitations: no limitations History of Present Illness ED Provider: DR. Craven HPI narrative: 69-year-old female came in for evaluation of abdominal pain x2 weeks pain is mostly upper abdomen in the epigastric/right upper quadrant area radiates to the right flank area pain started 2 weeks ago after patient was started on Mounjaro for diabetes control and lose weight, patient follow with GI for chronic liver fibrosis, s/p cholecystectomy many years ago, patient decided not to take Mounjaro last dose was 1 week ago, abdominal pain persist after discontinuing meningeal her own and resuming insulin to manage her diabetes. No blood in the vomit or in the stool. Patient with chronic restless leg syndrome and feel restless. Related Data Home Medications ?Medication ?Instructions ?Recorded ?Confirmed latanoprost 0.005 % eye drops 1 drp ophthalmic (eye) B EDTIME 04/29/20 04/02/25 sucralfate 1 gram tablet (Carafate) 1 g PO BID PRN Aci d Reflux 11/16/24 04/02/25 Previous Rx's ?Medication ?Instructions ?Recorded albuterol sulfate 90 mcg/actuation 1 - 2 puff PO Q4-6H PRN 06/08/22 aerosol inhaler respiratory symptoms 30 days #8.5 grams pen needle, diabetic 31 gauge x #100 ea 06/07/2309/20 pen needle, diabetic 31 gauge x #100 ea 06/22/2309/20 ondansetron HCl 4 mg tablet 4 mg PO ONCE PRN nausea an d 08/02/23 vomiting 30 days #30 tabs pen needle, diabetic 31 gauge x #100 ea 04/07/2409/20 omeprazole 20 mg capsule,delayed 20 mg PO DAILY heartb urn #90 caps 06/22/24 release FreeStyle Lite Strips (blood sugar #100 ea 11/17/24 diagnostic) blood-glucose meter (Accu-Chek #1 ea 11/22/24 Guide Me Glucose Meter) lancets (Accu-Chek Softclix #100 ea 11/22/24 Lancets) blood sugar diagnostic (Accu-Chek #100 ea 11/27/24 Guide test strips) insulin aspart U-100 100 unit/mL 10 unit (0.1 mL) subc ut TID 90 11/27/24 subcutaneous solution (Novo #27 mL U-100 Insulin aspart) nystatin 100,000 unit/gram topical 1 appl topical WHITLEY Y 30 days #30 11/27/24 cream grams evolocumab 140 mg/mL subcutaneous 140 mg subcut Q2W #2 mL 12/01/24 pen injector (Sulma Bolanos) lisinopril 40 mg tablet 40 mg PO DAILY 90 days #90 t abs 12/11/24 oxycodone 5 mg capsule 5 mg PO DAILY PRN For breakt hrough 01/29/25 back pain #30 caps amlodipine 10 mg tablet 10 mg PO DAILY 90 days #90 t abs 02/18/25 baclofen 10 mg tablet 10 mg PO BEDTIME Muscle spas ms #90 03/01/25 tabs famotidine 40 mg tablet 40 mg PO BEDTIME #90 tabs Mounjaro 2.5 mg/0.5 mL 2.5 mg (0.5 mL) subcut QWEEK #2 mL 03/25/25 subcutaneous pen injector (tirzepatide) insulin glargine U-300 conc 300 34 unit (0.1133 mL) engle bcut DAILY 03/25/25 unit/mL (1.5 mL) subcutaneous pen 90 days #13.5 mL (Toujeo SoloStar U-300 Insulin) fentanyl 50 mcg/hr transdermal 1 patch transdermal Q48 H 30 days 04/02/25 patch #15 ea Allergies Allergy/AdvReac Type Severity Reaction Status Date / Time duloxetine (From Cymbalta) Allergy Intermediate Gastrointestinal Verified 04/24/25 04:03 Upset gabapentin Allergy Intermediate Gastrointestinal Verified 04/24/25 04:03 Upset milnacipran (From Savella) Allergy Intermediate Gastrointestinal Verified 04/24/25 04:03 Upset naloxegol (Movantik) Allergy Intermediate Gastrointestinal Verified 04/24/25 04:03 Upset pregabalin (From Lyrica) Allergy Intermediate Gastrointestinal Verified 04/24/25 04:03 Upset Review of Systems Review of Systems All other systems are reviewed and are negative Constitutional: Reports as per HPI and Reports no additional constitutional complaints Eyes: Reports as per HPI and Reports no additional eye complaints Reports system reviewed and no additional complaints, except as documented Cardiovascular: Reports as per HPI and Reports no additional cardiovascular complaints Respiratory: Reports as per HPI and Reports no additional respiratory complaints Gastrointestinal: Reports as per HPI and Reports no additional gastrointestinal complaints Genitourinary: Reports no additional female genitourinary complaints Musculoskeletal: Reports no additional musculoskeletal complaints Skin/Breast: Reports system reviewed and no additional complaints, except as docu Psychiatric: Reports no additional psychiatric complaints Endocrine: Reports no additional endocrine complaints Hematologic/Lymphatic: Reports no additional hematologic/lymphatic complaints Allergic/Immunologic: Reports no additional allergic/immunologic complaints Reports system reviewed and no additional complaints, except as documented and Reports Abnormal speech present [facility] Past Medical History Medical History Asthma Hx of irritable bowel syndrome Pain management Narcotic dependence Herniated nucleus pulposus, cervical Hypertension, essential Muscle spasm Failed back syndrome DJD (degenerative joint disease) of thoracic spine Radiculitis of right cervical region Chronic GERD LFTs abnormal Diabetes 1.5, managed as type 1 Surgical History History of liver biopsy Hx of laser iridotomy H/O cataract extraction History of cervical spinal surgery History of lumbar surgery History of esophagogastroduodenoscopy History of colonoscopy History of esophagogastroduodenoscopy History of hysterectomy with oophorectomy Hx of cholecystectomy Family History Family History Father No problems noted. Mother Stomach cancer Social History Social History Housing: House Are you a primary child care associate teacher to a significant other at home: No Do you presently have visiting nurse or other home services: No Alcohol intake: never Patient Tobacco Use Status: Never used Tobacco Smoked in Last 30 Days: No e-Cigarette/Vaping Use: Never Used Use of substances other than those prescribed or required for medical reasons: No Advance Directives: No Advance Directives Information Provided: Yes service: No Current occupational status: disabled Cognitive needs: No Hearing needs: No Vision needs: Yes Physical Exam ED Vital Signs: Vital Signs - 24 hr 04/24/25 04:01 04/24/25 05:39 04/24/25 08:15 Temperature 98.6 F 98.6 F Pulse Rate 137 H 140 H 114 H Respiratory Rate 20 22 H 17 Blood Pressure 151/96 H 179/83 H 113/61 Pulse Oximetry 100 97 95 Oxygen Delivery Method Room Air Room Air Room Air BMI result Body Mass Index 24.0 Vital signs have been reviewed and appear to be correct. Blood pressure elevated. Heart rate normal. Respiratory rate normal. Temperature normal. Oxygen saturation normal. Appearance: Alert. Oriented X3. No acute distress. Head: Normal external exam. Normocephalic. Atraumatic. No Esteban signs noted. No raccoon eyes noted Eyes: PERRLA. EOMI. Conjunctiva and sclera normal. Eyelids normal. ENT: TM's Normal. Pharynx normal. Uvula midline. Moist mucous membranes. No trismus noted. No drooling noted. No muffled voice noted. Neck: Normal inspection. Neck supple. FROM. No adenopathy. Thyroid Normal. No meningeal signs. No neck mass noted. CVS: Normal heart rate and rhythm. Heart sound normal. No murmurs noted. Pulses normal throughout. Respiratory: No respiratory distress. Painless inspiration. Breath sounds normal. No wheezes/rales/rhonchi noted. Chest nontender. No accessory muscle usage noted or decreased air movement noted. Abdomen: Soft , mild epigastric tenderness, no rebound tenderness, no guarding, Bowel sounds normal in all 4 quadrants. No distention noted. No organomegaly noted. No visible injury noted. Back: No CVA tenderness. Full range of motion noted. Skin: Skin warm and dry. Normal skin color. Normal skin turgor. No rashes/lesions/lacerations noted. Extremities: No lower extremity edema. Extremities exhibit normal range of motion. Extremities nontender. Neuro: Oriented X 3. Cranial nerve exam: II-XII are grossly intact No motor deficit. No sensory deficit. Reflexes normal. Course Reevaluation(s) Reevaluation #1: Intractable nausea and vomiting with abdominal pain secondary to PUD versus duodenitis, patient received PPI in the ED with no improvement of her symptoms. Will be admitted as an inpatient for symptomatic treatment and GI consultation. No sepsis patient is tachycardic secondary to pain and vomiting, leukocytosis his secondary to duodenitis versus PUD. Time: 09:52 Medical Decision Making Differential Diagnosis Differential Diagnoses: The differential diagnosis associated with the presentation includes (Pancreatitis, gastritis, perforated viscus, colitis, diverticulitis, acute appendicitis, electrolyte derangement, severe anemia.) Admission/Observation Consideration of admission/observation: Escalation of care including admission/observation considered Lab Data MDM Lab Attestation statement: I reviewed the patient's lab results. 04/24/25 04:18 04/24/25 04:19 Labs: Lab Results 04/24/25 04/24/25 04/24/25 Range/Units 04:18 04:19 07:26 WBC 19.1 H (4.8-10.8) X10*3/uL RBC 5.15 (4.20-5.50) X10*6/uL Hgb 15.3 (12.0-16.0) g/dl Hct 45.7 (37.0-47.0) % MCV 88.7 (80.0-98.0) fL MCH 29.7 (27.0-33.0) pg MCHC 33.5 (31.0-35.0) g/dl RDW 13.4 (11.0-16.0) % Plt Count 171 (160-400) X10*3/uL MPV 12.0 (9.4-12.3) fL Immature Gran % (Auto) 0.5 H (0.0-0.4) % Neut % (Auto) 87.2 H (45-73) % Lymph % (Auto) 8.2 L (20-40) % [place] % (Auto) 3.5 (2-11) % Eos % (Auto) 0.3 (0-4) % Baso % (Auto) 0.3 (0-2) % Lymph # (Auto) 1.6 (1.2-4.9) X10*3/uL [place] # (Auto) 0.7 (0.1-1.2) X10*3/uL Eos # (Auto) 0.1 (0.0-0.4) X10*3/uL Baso # (Auto) 0.1 (0.0-0.2) X10*3/uL Abs Immat Gran (auto) 0.09 H (0.00-0.03) X10*3/uL Absolute Neuts (auto) 16.7 H (2.0-8.3) x10*3/uL Absolute Nucleated RBC 0.000 (0.0-0.012) X10*3/uL Nucleated RBC % (auto) 0.0 (0.0-0.2) /100WBC Smear Tech's Comments VERIFIED Sodium 140 (135-145) mmol/L Potassium 3.8 D (3.3-5.1) mmol/L Chloride 105 (96-108) mmol/L Carbon Dioxide 21 L (22-29) mmol/L Anion Gap 18 (12-20) BUN 17 H (9-16) mg/dL Creatinine 0.98 (0.5-1.4) mg/dL Estim Creat Clear Calc 50.0 Estimated GFR 56 Random Glucose 218 H (60-115) mg/dL Calcium 10.1 (8.4-10.2) mg/dL Total Bilirubin 0.7 (0.0-1.0) mg/dL Direct Bilirubin 0.3 (0.0-0.5) mg/dL AST 46 H (5-31) U/L ALT 98 H (0-31) U/L Alkaline Phosphatase 344 H (39-117) U/L Troponin I High Sens < 2.7 (<3.5-17.0) ng/L Total Protein 8.7 H (6.5-8.0) g/dL Albumin 4.5 (3.5-5.0) g/dL Amylase 57 (28-100) U/L Lipase 43 (8-78) U/L Independent Interpretation I performed an independent interpretation of an: CT Scan (Abdomen and pelvis:Possible peptic ulcer disease or duodenitis. Clinical follow-up recommended.) Radiology Impression Discussion of test interpretation with radiology: I have reviewed the radiologist's reading. Medications Administered Discontinued Medications Generic Name Dose Route Start Last Admin Trade Name Freq PRN Reason Stop Dose Admin Al Hydroxide/Mg Hydroxide 30 ml 04/24/25 06:55 04/24/25 07:44 Magnesium Hydrox/Alum Hydrox 30 Ml Oral.Susp PO 04/24/25 06:56 30 ml ONCE ONE Administration Lactated Ringer's 1,000 mls @ 999 mls/hr 04/24/25 07:45 04/24/25 07:45 Lr IV 04/24/25 08:45 999 mls/hr .Q1H1M ELENO Administration Iohexol 100 ml 04/24/25 08:22 04/24/25 08:23 Iohexol 350 Mg/Ml 100 Ml Infus..Btl IV 04/24/25 08:23 85 ml ONCE ONE Administration Ondansetron HCl 4 mg 04/24/25 06:21 04/24/25 06:25 Ondansetron Odt 4 Mg Tab.Rapdis TRANSLINGU 04/24/25 06:22 4 mg ONCE ONE Administration Ondansetron HCl 4 mg 04/24/25 06:55 04/24/25 07:44 Ondansetron Hcl 4 Mg/2 Ml Vial IVPUSH 04/24/25 06:56 4 mg ONCE ONE Administration Pantoprazole Sodium 40 mg 04/24/25 06:55 04/24/25 07:44 Pantoprazole Sodium 40 Mg/10 Ml Vial IVPUSH 04/24/25 06:56 40 mg ONCE ONE Administration Sucralfate 1 gm 04/24/25 06:55 04/24/25 07:44 Sucralfate Oral Suspension 1 Gm/10 Ml Oral.Susp PO 04/24/25 06:56 1 gm ONCE ONE Administration Critical Care Time Critical Care Time Critical Care Time: Yes Total Critical Care Time: 60 Attestation: The patient was critically ill with a high probability of imminent or life- threatening deterioration. I spent greater than 30 minutes of discontinuous time evaluating the patient, delivering critical care at the bedside, discussing evaluating data with consultants. Critical care time does not include time spent performing separately billable procedures or teaching. Time spent performing critical care was 60 minutes. Discharge Plan Discharge Clinical Impression: Intractable vomiting, PUD (peptic ulcer disease) Patient Disposition: Admitted As Inpatient Print Language: Serbian
[2025-04-24] MEDS: Magnesium Hydrox/Alum Hydrox 30 ML ORAL.SUSP PO (07:44)
[2025-04-24] MEDS: Sucralfate Oral Suspension 1 GM/10 ML ORAL.SUSP PO (07:44)
[2025-04-24] MEDS: Lactated Ringers 1,000 ML 999 ML IV (07:45)
--- NOTE | 2025-04-24 07:51 | PC.NURSE ---
patient a&ox3, iv inserted, lab drawn, ekg previously performed, conveyor monitor intact- sinus tach on monitor. ivf started per order, pt medicated per order. rr equal/non labored, pt c/o 02/14 rt abd pain, pt awaiting ct scan. family at bedside, call david within reach, plan of care ongoing.
[2025-04-24 07:59] LABS: Troponin-I High Sensitivity < 2.7 ng/L (<3.5-17.0)
[2025-04-24 08:15] VITALS: BP 113/61; PULSE 114; RESP 17; TEMP 37; O2SAT 95
[2025-04-24] MEDS: iohexoL 350 MG/ML 100 ML INFUS..BTL IV (08:23)
--- NOTE | 2025-04-24 09:38 | PC.NURSE ---
ivf continue to run slowly
--- NOTE | 2025-04-24 10:20 | P.HPHOSP_ITS ---
History of Present Illness Date of Service: 04/24/25 Attending physician on admission: Bobby William Chief Complaint: abdominal pain, N/V This is a 69-year-old female with history of diabetes, GERD, hypertension, chronic back pain on chronic opiates, multiple other medical issues who presents to the emergency department with abdominal pain. Patient was seen by endocrinology and started on Mounjaro, her 1st dose was April 03. Bedtime she experienced nausea vomiting and diarrhea for 24 hours. She continued to have nausea, vomiting and epigastric pain which persisted but she did take her 2nd dose of Mounjaro on April 15. She has had epigastric abdominal pain which is worse with eating and associated with nausea and vomiting. The pain does not radiate anywhere. She has had no further diarrhea since the day of her first dose of Mounjaro. She has had limited oral intake due to her persistent symptoms. She did have intermittent fever ranging from 100-102 from Saturday the to the but that has now resolved. Since her 1st dose of Mounjaro she has lost 14 lb. Last night she vomited all night. She denies any travel or recent sick contacts. She denies alcohol use, she uses NSAIDs infrequently. Due to persistent symptoms and inability to tolerate epigastric pain any longer she presented to the emergency room for evaluation. Workup revealed leukocytosis of 19,000, she underwent CT scan of the abdomen which showed concern for peptic ulcer disease versus duodenitis. Review of Systems 2 Review of Systems: Yes all other systems are reviewed and are negative Constitutional: Constitutional: Denies chills and Denies fever(s) Cardiovascular: Cardiovascular: Denies chest pain, Denies palpitations and Denies dyspnea Respiratory: Respiratory: Denies cough and Denies dyspnea Gastrointestinal: Gastrointestinal: Reports abdominal pain, Reports nausea and Reports vomiting Genitourinary: Genitourinary: Denies difficulty voiding, Denies dysuria, Denies flank pain, Denies urinary incontinence and Denies urinary urgency Endocrine: Endocrine: Denies palpitations [facility] Medical History Asthma Hx of irritable bowel syndrome Pain management Narcotic dependence Herniated nucleus pulposus, cervical Hypertension, essential Muscle spasm Failed back syndrome DJD (degenerative joint disease) of thoracic spine Radiculitis of right cervical region Chronic GERD LFTs abnormal Diabetes 1.5, managed as type 1 Family History Father No problems noted. Mother Stomach cancer Surgical History History of liver biopsy Hx of laser iridotomy H/O cataract extraction History of cervical spinal surgery History of lumbar surgery History of esophagogastroduodenoscopy History of colonoscopy History of esophagogastroduodenoscopy History of hysterectomy with oophorectomy Hx of cholecystectomy Social History Housing: House Are you a primary care connector to a significant other at home: No Do you presently have visiting nurse or other home services: No Alcohol intake: never Patient Tobacco Use Status: Never used Tobacco Smoked in Last 30 Days: No e-Cigarette/Vaping Use: Never Used Use of substances other than those prescribed or required for medical reasons: No Advance Directives: No Advance Directives Information Provided: Yes service: No Current occupational status: disabled Cognitive needs: No Hearing needs: No Vision needs: Yes Meds Allergies Allergy/AdvReac Type Severity Reaction Status Date / Time duloxetine (From Cymbalta) Allergy Intermediate Gastrointestinal Verified 04/24/25 04:03 Upset gabapentin Allergy Intermediate Gastrointestinal Verified 04/24/25 04:03 Upset milnacipran (From Savella) Allergy Intermediate Gastrointestinal Verified 04/24/25 04:03 Upset naloxegol (Movantik) Allergy Intermediate Gastrointestinal Verified 04/24/25 04:03 Upset pregabalin (From Lyrica) Allergy Intermediate Gastrointestinal Verified 04/24/25 04:03 Upset Home Medications ?Medication ?Instructions ?Recorded ?Confirmed ?Last Taken ?Type latanoprost 0.005 % eye drops 1 drp ophthalmic (eye) B EDTIME 04/29/20 04/24/25 04/23/25 History sucralfate 1 gram tablet (Carafate) 1 g PO BID PRN Aci d Reflux 11/16/24 04/24/25 04/23/25 History albuterol sulfate 90 mcg/actuation 1 - 2 puff PO Q4H P RN respiratory 04/24/25 04/24/25 04/23/25 History aerosol inhaler symptoms dicyclomine 10 mg capsule 10 mg PO TID PRN Abdominal 1 04/24/25 04/23/25 History Discomfort insulin aspart U-100 100 unit/mL See Protocol subcut T IDAC 04/24/25 04/24/25 04/23/25 History subcutaneous solution (Novolog U-100 Insulin aspart) Physical Exam 2 Vital Signs and Narrative: Vital Signs: Last Vital Signs Temp 98.6 F 04/24/25 08:15 Pulse 114 H 04/24/25 08:15 Resp 17 04/24/25 08:15 BP 113/61 04/24/25 08:15 Pulse Ox 95 04/24/25 08:15 O2 Del Method Room Air 04/24/25 08:15 BMI result Body Mass Index 24.0 Const: General: alert and awake Nutritional Appearance: average body habitus Orientation/consciousness: patient oriented x3 Resp: Effort & Inspection: normal respiratory effort, able to speak in complete sentences, no respiratory distress and no use of accessory muscles GI: Other: tender to palpation epigastrum, no distention, rigidity, guarding or rebound Neuro: General: patient oriented x3, moves all extremities and CN's II-XI intact bilaterally Extrem: General: No pedal edema Results Labs 04/24/25 04:18 04/24/25 04:19 Labs: Laboratory Results - last 24 hr 04/24/25 04/24/25 04/24/25 04:18 04:19 07:26 MCV 88.7 MCH 29.7 MCHC 33.5 RDW 13.4 Plt Count 171 MPV 12.0 Immature Gran % (Auto) 0.5 H Neut % (Auto) 87.2 H Lymph % (Auto) 8.2 L [place] % (Auto) 3.5 Eos % (Auto) 0.3 Baso % (Auto) 0.3 Lymph # (Auto) 1.6 [place] # (Auto) 0.7 Eos # (Auto) 0.1 Baso # (Auto) 0.1 Abs Immat Gran (auto) 0.09 H Absolute Neuts (auto) 16.7 H Absolute Nucleated RBC 0.000 Nucleated RBC % (auto) 0.0 Smear Tech's Comments VERIFIED Anion Gap 18 Estim Creat Clear Calc 50.0 Estimated GFR 56 Random Glucose 218 H Calcium 10.1 Total Bilirubin 0.7 Direct Bilirubin 0.3 AST 46 H ALT 98 H Alkaline Phosphatase 344 H Troponin I High Sens < 2.7 Total Protein 8.7 H Albumin 4.5 Amylase 57 Lipase 43 Assessment and Plan (1) Intractable vomiting: Status: Acute (2) Epigastric pain: Status: Acute Plan This is a 69-year-old female history of diabetes, chronic back pain, hypertension, liver fibrosis, fibromyalgia, asthma, hyperlipidemia, recently started on Mounjaro who presents to the emergency department with 3 week history of epigastric abdominal pain, nausea, vomiting, decreased p.o. intake and weight loss Epigastric abdominal pain with associated intractable nausea/vomiting symptoms due to PUD/duodenitis as imaging suggests vs Mounjaro related vs gastroenteritis although currently no diarrhea negative gastric emptying study in 2021 will treat symptomatically with IV PPI, antiemetics, IVF, pain control start clear liquid diet GI consult Leukocytosis Possibly reactive due to persistent N/V No bacterial infection found at this time Trend CBC Diabetes Per endocrinology notes type 1.5 treated as type 1 Hba1c 7.8 03/25/25 Has continued taking baseline dose of insulin despite nausea, vomiting, decreased p.o. intake with no episodes of hypoglycemia Toujeo is NF, will convert to 50% of equivalent dose of Lantus, can uptitrate prn SSI, POCs HTN BP soft, hold bp meds for now hold norvasc chronic pain/failed back syndrome/fibromyalgia continue fentanyl patch, p.r.n. oxycodone liver fibrosis LFTs near baseline dvt ppx - early ambulation, mechanical devices code status - full code Quality Stroke Does the patient have a stroke diagnosis?: No VTE Prior VTE?: No VTE Risk Level:: Medical - moderate - high VTE Device Contraindication: N/A - Device Ordered VTE Drug Contraindication: Treatment Not Indicated
--- NOTE | 2025-04-24 10:44 | PHA.MEDREC ---
Pharmacy Consult ? Medication Reconciliation Pharmacy has completed the medication reconciliation. Spoke to patient and family at bedside, they were able to confirm home meds. States they no longer take repatha, Mounjaro, Nystatin, Ursodiol, or Tizanidine. Stated that their Fentanyl patch will need to be changed tomorrow and that they still take 34 units of Glargine daily, but they take their Aspart just as needed. Put it in with a sliding scale TIDAC.
[2025-04-24] MEDS: Lactated Ringers 1,000 ML 100 ML IVCONT ×2 (11:12→20:33)
--- NOTE | 2025-04-24 11:13 | PC.NURSE ---
ivf hung per order, pt c/o 04/16 abd pain, will notify provider
--- NOTE | 2025-04-24 11:18 | HO.NURTONUR ---
patient is a&ox3 [place] speaking from home with RUQ abd pain with nausea/vomiting. Pt states this started after starting mounjaro for DM. CT scan performed- peptic ulcer disease. Family also states she had fevers at home last week as well. She has a 20 to her LT AC- difficulty stick, WBC 19.1, AST 46, ALT 98. air sampling and monitoring has been sinus tach low 100 to NSR upper 90s. LR running at 100ml/hr. pt c/o 04/16 abd pain- notified Gemini Aguirre as there is no available PRNs as of yet. Pt has not yet had the POC as lunch comes very late in the ED.
[2025-04-24 12:21] VITALS: BP 103/58; PULSE 94; RESP 16; TEMP 36.4; O2SAT 98
[2025-04-24 12:23] VITALS: BMI 25.1
[2025-04-24 12:36] LABS: Glucose, Whole Blood 145 mg/dL (60-115)
[2025-04-24] MEDS: fentaNYL 50 MCG PATCH.TD72 TRANSDERMA (12:56)
--- NOTE | 2025-04-24 13:02 | PC.NURSE ---
Fentanyl patch 50mcg/hr from home removed and disposed of properly witnessed By Flip Gary . New patch applied see MAR
[2025-04-24 15:14] VITALS: BP 112/56; PULSE 75; RESP 18; TEMP 36.3; O2SAT 98
[2025-04-24 15:54] LABS: Glucose, Whole Blood 141 mg/dL (60-115)
[2025-04-24 19:19] VITALS: BP 118/60; PULSE 82; RESP 18; TEMP 36.4; O2SAT 97
[2025-04-24 20:10] LABS: Glucose, Whole Blood 126 mg/dL (60-115)
[2025-04-24] MEDS: Latanoprost 0.005 % Ophth Sol 2.5 ML DROPS 1 DROP EYE-BOTH (21:12)
[2025-04-25] VITALS (7 sets, daily range): BP systolic 110–145; BP diastolic 57–68; PULSE 61–82; RESP 14–18; TEMP 36.3–37.1; O2SAT 95–98
[2025-04-25] MEDS: Lactated Ringers 1,000 ML 100 ML IVCONT ×2 (06:26→16:31)
[2025-04-25 07:02] LABS: MANUAL DIFF FLAG NO
[2025-04-25 07:08] LABS: Hematocrit 35.6 % (37.0-47.0); Hemoglobin 11.7 g/dl (12.0-16.0); Imm Gran Abs Auto 0.02 X10*3/uL (0.00-0.03); Imm Gran Pct Auto 0.2 % (0.0-0.4); Lymphocytes Absolute Auto 2.6 X10*3/uL (1.2-4.9); Mean Corpuscular HGB Conc 32.9 g/dl (31.0-35.0); Mean Corpuscular Hemoglobin 29.7 pg (27.0-33.0); Mean Corpuscular Volume 90.4 fL (80.0-98.0); NRBC Abs Auto 0.000 X10*3/uL (0.0-0.012); NRBC Pct Auto 0.0 /100WBC (0.0-0.2); Platelet Count 173 X10*3/uL (160-400); Red Blood Count 3.94 X10*6/uL (4.20-5.50); White Blood Count 8.9 X10*3/uL (4.8-10.8)
[2025-04-25 07:41] LABS: Glucose, Whole Blood 100 mg/dL (60-115)
--- NOTE | 2025-04-25 08:14 | P.CNGI_ITS ---
History of Present Illness Data of Consult Service Date: 04/25/25 Primary Care Provider: Tram Darby MD HPI Reason for consult: epigastric pain 69-year-old female with history of diabetes, GERD, hypertension, chronic back pain on chronic opiates, multiple other medical issues who I am seeing for epigastric pain. Patient presented with 3 wks of worseningsharp epigastric pain 10/ recently, worse with food and no relieving factors with radiaition into the back. she also has nausea and vomiting, without melena or coffee grounds, and no rectal bleeding or epistaxis. weight is down a little, and appetite is poor. She denies any travel or recent sick contacts. She denies alcohol use, she uses NSAIDs infrequently. CT scan of the abdomen which showed concern for peptic ulcer disease versus duodenitis. Review of Systems 2 Review of Systems: Constitutional : No Weight loss, No Fever, No Chills ENT/Mouth : No sore throat, No Rhinorrhea Eyes: No Swelling, No Redness Cardiovascular : No Chest Pain, No SOB, No Edema Respiratory : No Cough, No Sputum, No Wheezing Gastrointestinal : see HPI Genitourinary : NO Dysuria, No Urinary Frequency, No Hematuria, No Urgency Musculoskeletal : no joint pain, No Myalgias, No Joint Swelling Skin : No Skin Lesions, No rash Neuro : No Weakness, No Numbness, No Dizziness, No Headache Psych : No Anxiety/Panic, No Depression Heme/Lymph: No Bruising, No Lymphadenopathy Endocrine : No Polyuria, No Polydipsia All other systems reviewed and are negative. PMFSH Past Medical History Medical History Asthma Hx of irritable bowel syndrome Pain management Narcotic dependence Herniated nucleus pulposus, cervical Hypertension, essential Muscle spasm Failed back syndrome DJD (degenerative joint disease) of thoracic spine Radiculitis of right cervical region Chronic GERD LFTs abnormal Diabetes 1.5, managed as type 1 Family History Family History Father No problems noted. Mother Stomach cancer Surgical History Surgical History History of liver biopsy Hx of laser iridotomy H/O cataract extraction History of cervical spinal surgery History of lumbar surgery History of esophagogastroduodenoscopy History of colonoscopy History of esophagogastroduodenoscopy History of hysterectomy with oophorectomy Hx of cholecystectomy Social History Social History Housing: House Are you a primary caregiver assisted living to a significant other at home: No Do you presently have visiting nurse or other home services: No Alcohol intake: never Patient Tobacco Use Status: Never used Tobacco e-Cigarette/Vaping Use: Never Used Second Hand Smoke Exposure: No service: No Current occupational status: disabled Cognitive needs: No Hearing needs: No Vision needs: Yes Meds Allergies Allergy/AdvReac Type Severity Reaction Status Date / Time duloxetine (From Cymbalta) Allergy Intermediate Gastrointestinal Verified 04/24/25 04:03 Upset gabapentin Allergy Intermediate Gastrointestinal Verified 04/24/25 04:03 Upset milnacipran (From Savella) Allergy Intermediate Gastrointestinal Verified 04/24/25 04:03 Upset naloxegol (Movantik) Allergy Intermediate Gastrointestinal Verified 04/24/25 04:03 Upset pregabalin (From Lyrica) Allergy Intermediate Gastrointestinal Verified 04/24/25 04:03 Upset Active Medications: Current Medications Acetaminophen (Acetaminophen 325 Mg Tablet) 650 mg PO Q6H PRN PRN Reason: Pain, Mild 1-3,fever,headache Albuterol Sulfate (Albuterol Sulfate 90 Mcg 8 Gm Inhaler) 2 puff INHALE Q4H PRN PRN Reason: respiratory symptoms Baclofen (Baclofen 10 Mg Tablet) 10 mg PO BEDTIME [facility] Last Admin: 04/24/25 20:30 Dose: 10 mg Calcium Carbonate (Calcium Carbonate 750 Mg Tab.Chew) 750 mg PO Q4H PRN PRN Reason: Heartburn Dextrose (Dextrose 50 % 25 Gm/50 Ml Syringe) 25 gm IVPUSH Q15M PRN; Protocol PRN Reason: per Hypoglycemia Standing Ord. Fentanyl (Fentanyl 50 Mcg Patch.Td72) 50 mcg TRANSDERMA Q72H [facility] Last Admin: 04/24/25 12:56 Dose: 50 mcg Glucose (Glucose Gel 15 Gm Gel..Gram.) 15 gm PO Q15M PRN; Protocol PRN Reason: per Hypoglycemia Standing Ord. Lactated Ringer's (Lr) 1,000 mls @ 100 mls/hr IVCONT .Q10H [facility] Last Admin: 04/25/25 06:26 Dose: 100 mls/hr Insulin Glargine (Insulin Glargine,Hum.Rec.Anlog 100 Unit/Ml 10 Ml Vial) 14 unit SUBCUT DAILY [facility] Insulin Human Lispro (Insulin Lispro 100 Unit/Ml 3 Ml Vial) 0 unit SUBCUT QIDACHS [facility]; Protocol Last Admin: 04/25/25 07:43 Dose: Not Given Latanoprost (Latanoprost 0.005 % Ophth Petra 2.5 Ml Drops) 1 drop EYE-BOTH BEDTIME [facility] Last Admin: 04/24/25 21:12 Dose: 1 drop Magnesium Hydroxide (Milk Of Magnesia 30 Ml Oral.Susp) 30 ml PO DAILY PRN PRN Reason: Constipation Melatonin (Melatonin 3 Mg Tablet) 6 mg PO BEDTIME PRN PRN Reason: Insomnia Morphine Sulfate (Morphine Sulfate 4 Mg/Ml Cartridge) 2 mg IVPUSH Q3H PRN; Protocol PRN Reason: Pain, Severe (Pain Scale 7-10) Ondansetron HCl (Ondansetron Hcl 4 Mg/2 Ml Vial) 4 mg IVPUSH Q8H PRN PRN Reason: Nausea and Vomiting Oxycodone HCl (Oxycodone Hcl Immed Release 5 Mg Tablet) 5 mg PO DAILY PRN PRN Reason: Pain, Moderate(Pain Scale 4-6) Pantoprazole Sodium (Pantoprazole Sodium 40 Mg/10 Ml Vial) 40 mg IVPUSH BID@0630,1630 [facility] Last Admin: 04/25/25 06:26 Dose: 40 mg Sodium Chloride (0.9 % Sodium Chloride Flush 3 Ml Syringe) 3 ml IVFLUSH QSHIFT [facility] Last Admin: 04/25/25 06:58 Dose: Not Given Sucralfate (Sucralfate 1 Gm Tablet) 1 gm PO BID [facility] Last Admin: 04/25/25 07:48 Dose: 1 gm Home Medications ?Medication ?Instructions ?Recorded ?Confirmed ?Last Taken ?Type latanoprost 0.005 % eye drops 1 drp ophthalmic (eye) B EDTIME 04/29/20 04/24/25 04/23/25 History sucralfate 1 gram tablet (Carafate) 1 g PO BID PRN Aci d Reflux 11/16/24 04/24/25 04/23/25 History albuterol sulfate 90 mcg/actuation 1 - 2 puff PO Q4H P RN respiratory 04/24/25 04/24/25 04/23/25 History aerosol inhaler symptoms dicyclomine 10 mg capsule 10 mg PO TID PRN Abdominal 1 04/24/25 04/23/25 History Discomfort insulin aspart U-100 100 unit/mL See Protocol subcut T IDAC 04/24/25 04/24/25 04/23/25 History subcutaneous solution (Novolog U-100 Insulin aspart) Physical Exam 2 Exam: Exam: EXAM: GENERAL: The patient is well developed and nontoxic. VITAL SIGNS:see workflow HEENT: Nonicteric sclerae, PERRLA, EOMI. Oropharynx clear. Moist mucous membranes. Conjunctivae appear well perfused. No thyroid mass. CHEST: Chest wall is nontender. HEART: Regular rate and rhythm without murmurs. LUNGS: Clear to auscultation bilaterally. ABDOMEN: Soft, positive bowel sounds, tender epigastrium, no organomegaly.no flank tenderness SKIN: No rash, no excessive bruising, petechiae, or purpura. NEUROLOGIC: Cranial nerves II-XII intact without motor/sensory deficit. Psych: normal affect Vital Signs: Vital Signs: Last Vital Signs Temp 97.4 F 04/25/25 07:53 Pulse 61 04/25/25 07:53 Resp 16 04/25/25 07:53 BP 118/58 L 04/25/25 07:53 Pulse Ox 95 04/25/25 07:53 O2 Del Method Room Air 04/25/25 07:53 BMI result Body Mass Index 25.1 Results Labs 04/25/25 06:53 04/25/25 06:53 Labs: Short CBC 04/25/25 Range/Units 06:53 WBC 8.9 (4.8-10.8) X10*3/uL Hgb 11.7 L D (12.0-16.0) g/dl Hct 35.6 L D (37.0-47.0) % Plt Count 173 (160-400) X10*3/uL Imaging CT scan - abdomen: Attestation: I personally reviewed and interpreted this imaging study as follows: (degenerative spinal disease, thickened antrum and irregular duodenla bulb, possible ulcer, maybe slight exrvasation of contrast as well ) Assessment and Plan (1) PUD (peptic ulcer disease): Status: Acute Plan 1/ Epigastric pain wih abn imaging with thickened and irregular duodenal bulb possible PUD or duodenitis ddx: neoplasia, infiltrative disease PLAN: 1/ allow clears 2/ cont with PPI 3/ EGD tomorrow, will d/w Dr Roberts as she normally sees him for her care Procedures Date of Service Date of Service: 04/25/25
[2025-04-25] MEDS: Insulin Glargine,Hum.rec.anlog 100 UNIT/ML 10 ML VIAL 14 UNIT SUBCUT (09:34)
[2025-04-25 11:23] LABS: Anion Gap 11 (12-20); Blood Urea Nitrogen 16 mg/dL (9-16); Calcium 8.8 mg/dL (8.4-10.2); Carbon Dioxide 28 mmol/L (22-29); Chloride 107 mmol/L (96-108); Creatinine Clr Calc Pharmacy 51.5; Estimated Glomerular Filt Rate 58; Potassium 4.2 mmol/L (3.3-5.1); Sodium 142 mmol/L (135-145)
[2025-04-25 11:40] LABS: Glucose, Whole Blood 91 mg/dL (60-115)
--- NOTE | 2025-04-25 12:52 | HO.PM.IMPN ---
Subjective Subjective Date of Service: 04/25/25 Interval History: Seen and evaluated Feels better already but still has nausea and pain tolerating clears no other events Review of Systems Review of Systems: Yes all other systems are reviewed and are negative Physical Exam Exam: Exam: Constitutional : interactive, not in distress Cardiovascular : no JVP, no lower extremity edema Respiratory : bilateral chest movement, not in resp distress Gastrointestinal: soft, lax, mild epigastric tenderness Skin : Warm, Dry Neurological : Alert & oriented , No focal deficit Vital Signs: Vital Signs: Last Vital Signs Temp 97.8 F 04/25/25 11:52 Pulse 67 04/25/25 11:52 Resp 18 04/25/25 11:52 BP 125/62 04/25/25 11:52 Pulse Ox 98 04/25/25 11:52 O2 Del Method Room Air 04/25/25 11:52 BMI result Body Mass Index 25.1 Objective Data Active Medications Acetaminophen (Acetaminophen 325 Mg Tablet) 650 mg PO Q6H PRN PRN Reason: Pain, Mild 1-3,fever,headache Albuterol Sulfate (Albuterol Sulfate 90 Mcg 8 Gm Inhaler) 2 puff INHALE Q4H PRN PRN Reason: respiratory symptoms Baclofen (Baclofen 10 Mg Tablet) 10 mg PO BEDTIME [facility] Last Admin: 04/24/25 20:30 Dose: 10 mg Documented By: AMINTA Calcium Carbonate (Calcium Carbonate 750 Mg Tab.Chew) 750 mg PO Q4H PRN PRN Reason: Heartburn Dextrose (Dextrose 50 % 25 Gm/50 Ml Syringe) 25 gm IVPUSH Q15M PRN; Protocol PRN Reason: per Hypoglycemia Standing Ord. Fentanyl (Fentanyl 50 Mcg Patch.Td72) 50 mcg TRANSDERMA Q72H [facility] Last Admin: 04/24/25 12:56 Dose: 50 mcg Documented By: RED Glucose (Glucose Gel 15 Gm Gel..Gram.) 15 gm PO Q15M PRN; Protocol PRN Reason: per Hypoglycemia Standing Ord. Lactated Ringer's (Lr) 1,000 mls @ 100 mls/hr IVCONT .Q10H [facility] Last Admin: 04/25/25 06:26 Dose: 100 mls/hr Documented By: AMINTA Insulin Glargine (Insulin Glargine,Hum.Rec.Anlog 100 Unit/Ml 10 Ml Vial) 14 unit SUBCUT DAILY [facility] Last Admin: 04/25/25 09:34 Dose: 14 unit Documented By: RED Insulin Human Lispro (Insulin Lispro 100 Unit/Ml 3 Ml Vial) 0 unit SUBCUT QIDACHS [facility]; Protocol Last Admin: 04/25/25 07:43 Dose: Not Given Documented By: RED Non-Admin Reason: No Insulin Coverage Latanoprost (Latanoprost 0.005 % Ophth Petra 2.5 Ml Drops) 1 drop EYE-BOTH BEDTIME [facility] Last Admin: 04/24/25 21:12 Dose: 1 drop Documented By: AMINTA Magnesium Hydroxide (Milk Of Magnesia 30 Ml Oral.Susp) 30 ml PO DAILY PRN PRN Reason: Constipation Melatonin (Melatonin 3 Mg Tablet) 6 mg PO BEDTIME PRN PRN Reason: Insomnia Morphine Sulfate (Morphine Sulfate 4 Mg/Ml Cartridge) 2 mg IVPUSH Q3H PRN; Protocol PRN Reason: Pain, Severe (Pain Scale 7-10) Ondansetron HCl (Ondansetron Hcl 4 Mg/2 Ml Vial) 4 mg IVPUSH Q8H PRN PRN Reason: Nausea and Vomiting Oxycodone HCl (Oxycodone Hcl Immed Release 5 Mg Tablet) 5 mg PO DAILY PRN PRN Reason: Pain, Moderate(Pain Scale 4-6) Pantoprazole Sodium (Pantoprazole Sodium 40 Mg/10 Ml Vial) 40 mg IVPUSH BID@0630,1630 [facility] Last Admin: 04/25/25 06:26 Dose: 40 mg Documented By: AMINTA Sodium Chloride (0.9 % Sodium Chloride Flush 3 Ml Syringe) 3 ml IVFLUSH QSHIFT [facility] Last Admin: 04/25/25 06:58 Dose: Not Given Documented By: RED Non-Admin Reason: IV Running Sucralfate (Sucralfate 1 Gm Tablet) 1 gm PO BID [facility] Last Admin: 04/25/25 07:48 Dose: 1 gm Documented By: RED Labs 04/25/25 06:53 04/25/25 06:53 Labs: Laboratory Results - last 24 hr 04/24/25 04/24/25 04/25/25 15:48 20:03 06:53 MCV 90.4 MCH 29.7 MCHC 32.9 RDW 13.5 Plt Count 173 MPV 12.1 Immature Gran % (Auto) 0.2 Neut % (Auto) 61.7 Lymph % (Auto) 28.6 [place] % (Auto) 7.8 Eos % (Auto) 1.3 Baso % (Auto) 0.4 Lymph # (Auto) 2.6 [place] # (Auto) 0.7 Eos # (Auto) 0.1 Baso # (Auto) 0.0 Abs Immat Gran (auto) 0.02 Absolute Neuts (auto) 5.5 Absolute Nucleated RBC 0.000 Nucleated RBC % (auto) 0.0 Anion Gap 11 L Estim Creat Clear Calc 51.5 Estimated GFR 58 POC Glucose 141 H 126 H Random Glucose 99 Calcium 8.8 D 04/25/25 04/25/25 07:36 11:36 MCV MCH MCHC RDW Plt Count MPV Immature Gran % (Auto) Neut % (Auto) Lymph % (Auto) [place] % (Auto) Eos % (Auto) Baso % (Auto) Lymph # (Auto) [place] # (Auto) Eos # (Auto) Baso # (Auto) Abs Immat Gran (auto) Absolute Neuts (auto) Absolute Nucleated RBC Nucleated RBC % (auto) Anion Gap Estim Creat Clear Calc Estimated GFR POC Glucose 100 91 Random Glucose Calcium Assessment and Plan (1) Diabetes 1.5, managed as type 1: Status: Acute (2) Intractable vomiting: Status: Acute (3) Epigastric pain: Status: Acute Plan This is a 69-year-old female history of diabetes, chronic back pain, hypertension, liver fibrosis, fibromyalgia, asthma, hyperlipidemia, recently started on Mounjaro who presents to the emergency department with 3 week history of epigastric abdominal pain, nausea, vomiting, decreased p.o. intake and weight loss Epigastric abdominal pain with associated intractable nausea/vomiting Concerns of PUD/duodenitis vs mass as imaging suggests Could also be Mounjaro related vs gastroenteritis although currently no diarrhea IV PPI, antiemetics, IVF, pain control advance diet, NPO post midnight for possible EGD tomorrow GI consult, Dr Flores to follow her, keep NPO overnight Leukocytosis Possibly reactive due to persistent N/V, resolved with hydration No bacterial infection found at this time, no Abx Diabetes Per endocrinology notes type 1.5 treated as type 1 Hba1c 7.8 03/25/25 Has continued taking baseline dose of insulin despite nausea, vomiting, decreased p.o. intake with no episodes of hypoglycemia Erik is NF, will convert to 50% of equivalent dose of Lantus, can uptitrate prn SSI, POCs HTN BP soft, hold bp meds for now hold norvasc chronic pain/failed back syndrome/fibromyalgia continue fentanyl patch, p.r.n. oxycodone liver fibrosis LFTs near baseline dvt ppx - early ambulation, mechanical devices code status - full code Quality Stroke Does the patient have a stroke diagnosis?: No VTE Prior VTE?: No VTE Risk Level:: Medical - moderate - high VTE Device Contraindication: N/A - Device Ordered VTE Drug Contraindication: Treatment Not Indicated
--- NOTE | 2025-04-25 14:03 | MHC.CM.PN ---
pt lives with family has a home health aide caregiver has a ride home when dcd
[2025-04-25 16:17] LABS: Glucose, Whole Blood 106 mg/dL (60-115)
[2025-04-25] MEDS: Latanoprost 0.005 % Ophth Sol 2.5 ML DROPS 1 DROP EYE-BOTH (19:34)
[2025-04-25 20:21] LABS: Glucose, Whole Blood 136 mg/dL (60-115)
[2025-04-26] VITALS (8 sets, daily range): BP systolic 104–148; BP diastolic 53–70; PULSE 59–83; RESP 12–18; TEMP 36.2–37.2; O2SAT 96–100
[2025-04-26] MEDS: Lactated Ringers 1,000 ML 100 ML IVCONT (02:42)
[2025-04-26 07:21] LABS: Anion Gap 10 (12-20); Blood Urea Nitrogen 11 mg/dL (9-16); Calcium 9.0 mg/dL (8.4-10.2); Carbon Dioxide 29 mmol/L (22-29); Chloride 107 mmol/L (96-108); Creatinine Clr Calc Pharmacy 54.4; Estimated Glomerular Filt Rate > 60; Potassium 4.2 mmol/L (3.3-5.1); Sodium 142 mmol/L (135-145)
[2025-04-26 07:40] LABS: Hematocrit 36.0 % (37.0-47.0); Hemoglobin 11.9 g/dl (12.0-16.0); Imm Gran Abs Auto 0.03 X10*3/uL (0.00-0.03); Imm Gran Pct Auto 0.5 % (0.0-0.4); Lymphocytes Absolute Auto 1.8 X10*3/uL (1.2-4.9); MANUAL DIFF FLAG SCAN; Mean Corpuscular HGB Conc 33.1 g/dl (31.0-35.0); Mean Corpuscular Hemoglobin 29.3 pg (27.0-33.0); Mean Corpuscular Volume 88.7 fL (80.0-98.0); NRBC Abs Auto 0.000 X10*3/uL (0.0-0.012); NRBC Pct Auto 0.0 /100WBC (0.0-0.2); PLT CLUMP 1; Red Blood Count 4.06 X10*6/uL (4.20-5.50); SCAN SMEAR FLAG 1; White Blood Count 5.8 X10*3/uL (4.8-10.8)
[2025-04-26 07:50] LABS: Glucose, Whole Blood 90 mg/dL (60-115)
--- NOTE | 2025-04-26 07:58 | P.CONAN_ITS ---
Documented by User: Kathi Echevarria NP 04/26/25 08:06 HPI - Anesthesia Eval Consult details Narrative: 69 yr old upper endoscopy On chronic narcotics Type 1.5 diabetes, managed as Type 1 PMF Active Problems Active Problems: All Active Problems PUD (peptic ulcer disease) (Acute) Intractable vomiting (Acute) Liver cirrhosis (Acute) Age-related cataract of both eyes (Acute) LFT elevation (Acute) Right lumbar radiculitis (Acute) RUQ abdominal pain (Acute) Palpitations (Acute) Gingivitis (Acute) Epigastric pain (Acute) Chest discomfort (Acute) Cervical radiculitis (Acute) Arthrosis (Acute) Foot pain, left (Acute) Epigastric burning sensation (Acute) Post-COVID syndrome (Acute) Migraine headache (Acute) Foul smelling urine (Acute) Medication management contract signed (Acute) Injury of digital nerve of right little finger (Acute) Open fracture of proximal phalanx of right little finger (Acute) Shortness of breath (Acute) Hospital discharge follow-up (Acute) Abdominal pain (Acute) Other and unspecified hyperlipidemia (Acute) Essential hypertension (Acute) Lipid disorder (Acute) Spinal stenosis, lumbar (Acute) HNP (herniated nucleus pulposus), lumbar (Acute) Radiculitis, lumbosacral (Acute) Hip pain, right (Acute) Sacroiliitis (Acute) Acute sinusitis (Acute) custodial (current) use of insulin (Acute) Right otitis media (Acute) Pre-op evaluation (Acute) Elevated blood pressure reading (Acute) Pain management (Acute) Narcotic dependence (Acute) Herniated nucleus pulposus, cervical (Acute) Hypertension, essential (Acute) Muscle spasm (Acute) Failed back syndrome (Acute) DJD (degenerative joint disease) of thoracic spine (Acute) Radiculitis of right cervical region (Acute) Chronic GERD (Acute) LFTs abnormal (Acute) Diabetes 1.5, managed as type 1 (Acute) Past Medical History Medical History Asthma Hx of irritable bowel syndrome Pain management Narcotic dependence Herniated nucleus pulposus, cervical Hypertension, essential Muscle spasm Failed back syndrome DJD (degenerative joint disease) of thoracic spine Radiculitis of right cervical region Chronic GERD LFTs abnormal Diabetes 1.5, managed as type 1 Family History Family History Father No problems noted. Mother Stomach cancer Family history of problems with anesthesia: No Surgical History Surgical History History of liver biopsy Hx of laser iridotomy H/O cataract extraction History of cervical spinal surgery History of lumbar surgery History of esophagogastroduodenoscopy History of colonoscopy History of esophagogastroduodenoscopy History of hysterectomy with oophorectomy Hx of cholecystectomy History of Problems with Anesthesia: No Social History Social History Housing: House Are you a primary ocular care technologist to a significant other at home: No Do you presently have visiting nurse or other home services: No Alcohol intake: never Patient Tobacco Use Status: Never used Tobacco e-Cigarette/Vaping Use: Never Used Second Hand Smoke Exposure: No service: No Current occupational status: disabled Cognitive needs: No Hearing needs: No Vision needs: Yes Meds Allergies Allergy/AdvReac Type Severity Reaction Status Date / Time duloxetine (From Cymbalta) Allergy Intermediate Gastrointestinal Verified 04/26/25 11:50 Upset gabapentin Allergy Intermediate Gastrointestinal Verified 04/26/25 11:50 Upset milnacipran (From Savella) Allergy Intermediate Gastrointestinal Verified 04/26/25 11:50 Upset naloxegol (Movantik) Allergy Intermediate Gastrointestinal Verified 04/26/25 11:50 Upset pregabalin (From Lyrica) Allergy Intermediate Gastrointestinal Verified 04/26/25 11:50 Upset Active Medications: Current Medications Acetaminophen (Acetaminophen 325 Mg Tablet) 650 mg PO Q6H PRN PRN Reason: Pain, Mild 1-3,fever,headache Albuterol Sulfate (Albuterol Sulfate 90 Mcg 8 Gm Inhaler) 2 puff INHALE Q4H PRN PRN Reason: respiratory symptoms Baclofen (Baclofen 10 Mg Tablet) 10 mg PO BEDTIME [facility] Last Admin: 04/25/25 19:33 Dose: 10 mg Calcium Carbonate (Calcium Carbonate 750 Mg Tab.Chew) 750 mg PO Q4H PRN PRN Reason: Heartburn Dextrose (Dextrose 50 % 25 Gm/50 Ml Syringe) 25 gm IVPUSH Q15M PRN; Protocol PRN Reason: per Hypoglycemia Standing Ord. Fentanyl (Fentanyl 50 Mcg Patch.Td72) 50 mcg TRANSDERMA Q72H [facility] Last Admin: 04/24/25 12:56 Dose: 50 mcg Glucose (Glucose Gel 15 Gm Gel..Gram.) 15 gm PO Q15M PRN; Protocol PRN Reason: per Hypoglycemia Standing Ord. Lactated Ringer's (Lr) 1,000 mls @ 100 mls/hr IVCONT .Q10H [facility] Last Admin: 04/26/25 02:42 Dose: 100 mls/hr Insulin Glargine (Insulin Glargine,Hum.Rec.Anlog 100 Unit/Ml 10 Ml Vial) 14 unit SUBCUT DAILY [facility] Last Admin: 04/25/25 09:34 Dose: 14 unit Insulin Human Lispro (Insulin Lispro 100 Unit/Ml 3 Ml Vial) 0 unit SUBCUT QIDACHS [facility]; Protocol Last Admin: 04/25/25 20:27 Dose: Not Given Latanoprost (Latanoprost 0.005 % Ophth Petra 2.5 Ml Drops) 1 drop EYE-BOTH BEDTIME [facility] Last Admin: 04/25/25 19:34 Dose: 1 drop Magnesium Hydroxide (Milk Of Magnesia 30 Ml Oral.Susp) 30 ml PO DAILY PRN PRN Reason: Constipation Melatonin (Melatonin 3 Mg Tablet) 6 mg PO BEDTIME PRN PRN Reason: Insomnia Morphine Sulfate (Morphine Sulfate 4 Mg/Ml Cartridge) 2 mg IVPUSH Q3H PRN; Protocol PRN Reason: Pain, Severe (Pain Scale 7-10) Ondansetron HCl (Ondansetron Hcl 4 Mg/2 Ml Vial) 4 mg IVPUSH Q8H PRN PRN Reason: Nausea and Vomiting Oxycodone HCl (Oxycodone Hcl Immed Release 5 Mg Tablet) 5 mg PO DAILY PRN PRN Reason: Pain, Moderate(Pain Scale 4-6) Pantoprazole Sodium (Pantoprazole Sodium 40 Mg/10 Ml Vial) 40 mg IVPUSH BID@0630,1630 [facility] Last Admin: 04/26/25 05:35 Dose: 40 mg Sodium Chloride (0.9 % Sodium Chloride Flush 3 Ml Syringe) 3 ml IVFLUSH QSHIFT [facility] Last Admin: 04/26/25 07:17 Dose: Not Given Sucralfate (Sucralfate 1 Gm Tablet) 1 gm PO BID [facility] Last Admin: 04/26/25 07:27 Dose: Not Given Home Medications ?Medication ?Instructions ?Recorded ?Confirmed ?Last Taken ?Type latanoprost 0.005 % eye drops 1 drp ophthalmic (eye) B EDTIME 04/29/20 04/24/25 04/23/25 History sucralfate 1 gram tablet (Carafate) 1 g PO BID PRN Aci d Reflux 11/16/24 04/24/25 04/23/25 History albuterol sulfate 90 mcg/actuation 1 - 2 puff PO Q4H P RN respiratory 04/24/25 04/24/25 04/23/25 History aerosol inhaler symptoms dicyclomine 10 mg capsule 10 mg PO TID PRN Abdominal 1 04/24/25 04/23/25 History Discomfort insulin aspart U-100 100 unit/mL See Protocol subcut T IDAC 04/24/25 04/24/25 04/23/25 History subcutaneous solution (Novolog U-100 Insulin aspart) Exam Height,Weight and Vital Signs: Height 5 ft 6 in Weight 70.5 kg Last Vital Signs Temp 97.6 F 04/26/25 07:25 Pulse 73 04/26/25 07:25 Resp 12 04/26/25 07:25 BP 138/60 04/26/25 07:25 Pulse Ox 96 04/26/25 07:25 O2 Del Method Room Air 04/26/25 07:25 Pertinent Lab Results Pertinent Lab Results: Laboratory Tests 04/24/25 04/24/25 04/24/25 04:18 04:19 07:26 WBC 19.1 H RBC 5.15 Hgb 15.3 Hct 45.7 MCV 88.7 MCH 29.7 MCHC 33.5 RDW 13.4 Plt Count 171 MPV 12.0 Immature Gran % (Auto) 0.5 H Neut % (Auto) 87.2 H Lymph % (Auto) 8.2 L [place] % (Auto) 3.5 Eos % (Auto) 0.3 Baso % (Auto) 0.3 Lymph # (Auto) 1.6 [place] # (Auto) 0.7 Eos # (Auto) 0.1 Baso # (Auto) 0.1 Abs Immat Gran (auto) 0.09 H Absolute Neuts (auto) 16.7 H Absolute Nucleated RBC 0.000 Nucleated RBC % (auto) 0.0 Smear Tech's Comments VERIFIED Sodium 140 Potassium 3.8 D Chloride 105 Carbon Dioxide 21 L Anion Gap 18 BUN 17 H Creatinine 0.98 Estim Creat Clear Calc 50.0 Estimated GFR 56 POC Glucose Random Glucose 218 H Calcium 10.1 Total Bilirubin 0.7 Direct Bilirubin 0.3 AST 46 H ALT 98 H Alkaline Phosphatase 344 H Troponin I High Sens < 2.7 Total Protein 8.7 H Albumin 4.5 Amylase 57 Lipase 43 04/24/25 04/24/25 04/24/25 12:32 15:48 20:03 WBC RBC Hgb Hct MCV MCH MCHC RDW Plt Count MPV Immature Gran % (Auto) Neut % (Auto) Lymph % (Auto) [place] % (Auto) Eos % (Auto) Baso % (Auto) Lymph # (Auto) [place] # (Auto) Eos # (Auto) Baso # (Auto) Abs Immat Gran (auto) Absolute Neuts (auto) Absolute Nucleated RBC Nucleated RBC % (auto) Smear Tech's Comments Sodium Potassium Chloride Carbon Dioxide Anion Gap BUN Creatinine Estim Creat Clear Calc Estimated GFR POC Glucose 145 H 141 H 126 H Random Glucose Calcium Total Bilirubin Direct Bilirubin AST ALT Alkaline Phosphatase Troponin I High Sens Total Protein Albumin Amylase Lipase 04/25/25 04/25/25 04/25/25 06:53 07:36 11:36 WBC 8.9 RBC 3.94 L D Hgb 11.7 L D Hct 35.6 L D MCV 90.4 MCH 29.7 MCHC 32.9 RDW 13.5 Plt Count 173 MPV 12.1 Immature Gran % (Auto) 0.2 Neut % (Auto) 61.7 Lymph % (Auto) 28.6 [place] % (Auto) 7.8 Eos % (Auto) 1.3 Baso % (Auto) 0.4 Lymph # (Auto) 2.6 [place] # (Auto) 0.7 Eos # (Auto) 0.1 Baso # (Auto) 0.0 Abs Immat Gran (auto) 0.02 Absolute Neuts (auto) 5.5 Absolute Nucleated RBC 0.000 Nucleated RBC % (auto) 0.0 Smear Tech's Comments Sodium 142 Potassium 4.2 Chloride 107 Carbon Dioxide 28 Anion Gap 11 L BUN 16 Creatinine 0.95 Estim Creat Clear Calc 51.5 Estimated GFR 58 POC Glucose 100 91 Random Glucose 99 Calcium 8.8 D Total Bilirubin Direct Bilirubin AST ALT Alkaline Phosphatase Troponin I High Sens Total Protein Albumin Amylase Lipase 04/25/25 04/25/25 04/26/25 16:05 20:08 06:37 WBC RBC 4.06 L Hgb 11.9 L Hct 36.0 L MCV 88.7 MCH 29.3 MCHC 33.1 RDW 13.2 Plt Count MPV Immature Gran % (Auto) Neut % (Auto) Lymph % (Auto) [place] % (Auto) Eos % (Auto) Baso % (Auto) Lymph # (Auto) [place] # (Auto) Eos # (Auto) Baso # (Auto) Abs Immat Gran (auto) Absolute Neuts (auto) Absolute Nucleated RBC Nucleated RBC % (auto) Smear Tech's Comments Sodium 142 Potassium 4.2 Chloride 107 Carbon Dioxide 29 Anion Gap 10 L BUN 11 Creatinine 0.90 Estim Creat Clear Calc 54.4 Estimated GFR > 60 POC Glucose 106 136 H Random Glucose 87 Calcium 9.0 Total Bilirubin Direct Bilirubin AST ALT Alkaline Phosphatase Troponin I High Sens Total Protein Albumin Amylase Lipase 04/26/25 07:29 WBC RBC Hgb Hct MCV MCH MCHC RDW Plt Count MPV Immature Gran % (Auto) Neut % (Auto) Lymph % (Auto) [place] % (Auto) Eos % (Auto) Baso % (Auto) Lymph # (Auto) [place] # (Auto) Eos # (Auto) Baso # (Auto) Abs Immat Gran (auto) Absolute Neuts (auto) Absolute Nucleated RBC Nucleated RBC % (auto) Smear Tech's Comments Sodium Potassium Chloride Carbon Dioxide Anion Gap BUN Creatinine Estim Creat Clear Calc Estimated GFR POC Glucose 90 Random Glucose Calcium Total Bilirubin Direct Bilirubin AST ALT Alkaline Phosphatase Troponin I High Sens Total Protein Albumin Amylase Lipase Narrative Narrative: EKG 04/24/25 *EKG was done when pt experiencing pain & vomiting Vent. Rate : 142 BPM Atrial Rate : 142 BPM P-R Int : 112 ms QRS Dur : 78 ms QT Int : 354 ms P-R-T Axes : * 72 70 degrees QTcB Int : 544 ms Sinus tachycardia Nonspecific T wave abnormality Abnormal ECG When compared with ECG of 04-Aug-2023 14:45, Vent. rate has increased by 53 bpm ECHO 08/2024 Conclusions: - 1. Normal LV ejection fraction of 55-60% with grade 1 diastolic dysfunction 2. Normal cardiac valvular Dopplers 3. No gross pericardial effusion Assessment and Plan Final Anesthetic Review Family History of Problems with Anesthesia: No History of Problems with Anesthesia: No Documented by User: Mesha Brooke MD 04/26/25 12:23 [facility] Past Medical History Medical History Asthma Hx of irritable bowel syndrome Pain management Narcotic dependence Herniated nucleus pulposus, cervical Hypertension, essential Muscle spasm Failed back syndrome DJD (degenerative joint disease) of thoracic spine Radiculitis of right cervical region Chronic GERD LFTs abnormal Diabetes 1.5, managed as type 1 Family History Family History Father No problems noted. Mother Stomach cancer Surgical History Surgical History History of liver biopsy Hx of laser iridotomy H/O cataract extraction History of cervical spinal surgery History of lumbar surgery History of esophagogastroduodenoscopy History of colonoscopy History of esophagogastroduodenoscopy History of hysterectomy with oophorectomy Hx of cholecystectomy Social History Social History Housing: House Are you a primary ocular care technologist to a significant other at home: No Do you presently have visiting nurse or other home services: No Alcohol intake: never Patient Tobacco Use Status: Never used Tobacco e-Cigarette/Vaping Use: Never Used Second Hand Smoke Exposure: No service: No Current occupational status: disabled Cognitive needs: No Hearing needs: No Vision needs: Yes Meds Allergies Allergy/AdvReac Type Severity Reaction Status Date / Time duloxetine (From Cymbalta) Allergy Intermediate Gastrointestinal Verified 04/26/25 11:50 Upset gabapentin Allergy Intermediate Gastrointestinal Verified 04/26/25 11:50 Upset milnacipran (From Savella) Allergy Intermediate Gastrointestinal Verified 04/26/25 11:50 Upset naloxegol (Movantik) Allergy Intermediate Gastrointestinal Verified 04/26/25 11:50 Upset pregabalin (From Lyrica) Allergy Intermediate Gastrointestinal Verified 04/26/25 11:50 Upset Home Medications ?Medication ?Instructions ?Recorded ?Confirmed ?Last Taken ?Type latanoprost 0.005 % eye drops 1 drp ophthalmic (eye) B EDTIME 04/29/20 04/24/25 04/23/25 History sucralfate 1 gram tablet (Carafate) 1 g PO BID PRN Aci d Reflux 11/16/24 04/24/25 04/23/25 History albuterol sulfate 90 mcg/actuation 1 - 2 puff PO Q4H P RN respiratory 04/24/25 04/24/25 04/23/25 History aerosol inhaler symptoms dicyclomine 10 mg capsule 10 mg PO TID PRN Abdominal 1 04/24/25 04/23/25 History Discomfort insulin aspart U-100 100 unit/mL See Protocol subcut T IDAC 04/24/25 04/24/25 04/23/25 History subcutaneous solution (Novolog U-100 Insulin aspart) Exam Airway Mallampati Class: III TM Dist: >3cm Neck ROM: Full Heart: rrr Lungs: cta Assessment and Plan Assessment Anesthesia Assessment: Anesthesia Plan Discussed and Chart Reviewed Final Anesthetic Review NPO: Yes ASA Class: III Final Preanesthetic Review: No Changes in Pt Med Stat, Meds/Allgs Chart Reviewed and Consent Obtained/Reviewed Patient Risk: Intermediate Procedure Risk: Intermediate Anesthetic Plan Anesthetic Plan: MAC: Disposition: Standard PACU
[2025-04-26 08:23] LABS: Platelet Count 134 X10*3/uL (160-400)
--- NOTE | 2025-04-26 11:59 | PC.NURSE ---
Report called to Judie in [facility]
[2025-04-26 12:03] LABS: Glucose, Whole Blood 93 mg/dL (60-115)
--- NOTE | 2025-04-26 12:24 | MHC.CM.PN ---
Awaiting procedure today, not medically cleared at this time. CM will continue to follow.
[2025-04-26 12:56] LABS: Glucose, Whole Blood 81 mg/dL (60-115)
--- NOTE | 2025-04-26 13:19 | P.PNGI_ITS ---
Subjective Subjective Date of Service: 04/26/25 Interval History: feeling improved hungry still havign some pian no melena no rectal bleeding Critical Care Time (minutes): 0 Physical Exam 2 Exam: Exam: EXAM: GENERAL: The patient is well developed and nontoxic. VITAL SIGNS:see workflow HEENT: Nonicteric sclerae, PERRLA, EOMI. Oropharynx clear. Moist mucous membranes. Conjunctivae appear well perfused. No thyroid mass. CHEST: Chest wall is nontender. HEART: Regular rate and rhythm without murmurs. LUNGS: Clear to auscultation bilaterally. ABDOMEN: Soft, positive bowel sounds, tender epigastrium, no organomegaly.no flank tenderness SKIN: No rash, no excessive bruising, petechiae, or purpura. NEUROLOGIC: Cranial nerves II-XII intact without motor/sensory deficit. Psych: normal affect Vital Signs: Vital Signs: Last Vital Signs Temp 98.2 F 04/26/25 12:18 Pulse 82 04/26/25 12:18 Resp 18 04/26/25 12:18 BP 144/70 H 04/26/25 12:18 Pulse Ox 98 04/26/25 12:18 O2 Del Method Room Air 04/26/25 12:18 BMI result Body Mass Index 25.1 Objective Data Labs 04/26/25 06:37 04/26/25 06:37 Labs: Laboratory Results - last 24 hr 04/25/25 04/25/25 04/26/25 16:05 20:08 06:37 WBC 5.8 RBC 4.06 L Hgb 11.9 L Hct 36.0 L MCV 88.7 MCH 29.3 MCHC 33.1 RDW 13.2 Plt Count 134 L MPV 13.5 H Immature Gran % (Auto) 0.5 H Neut % (Auto) 56.0 Lymph % (Auto) 31.5 [place] % (Auto) 8.2 Eos % (Auto) 3.1 Baso % (Auto) 0.7 Lymph # (Auto) 1.8 [place] # (Auto) 0.5 Eos # (Auto) 0.2 Baso # (Auto) 0.0 Abs Immat Gran (auto) 0.03 Absolute Neuts (auto) 3.3 Absolute Nucleated RBC 0.000 Nucleated RBC % (auto) 0.0 Smear Tech's Comments VERIFIED Sodium 142 Potassium 4.2 Chloride 107 Carbon Dioxide 29 Anion Gap 10 L BUN 11 Creatinine 0.90 Estim Creat Clear Calc 54.4 Estimated GFR > 60 POC Glucose 106 136 H Random Glucose 87 Calcium 9.0 04/26/25 04/26/25 04/26/25 07:29 11:59 12:15 WBC RBC Hgb Hct MCV MCH MCHC RDW Plt Count MPV Immature Gran % (Auto) Neut % (Auto) Lymph % (Auto) [place] % (Auto) Eos % (Auto) Baso % (Auto) Lymph # (Auto) [place] # (Auto) Eos # (Auto) Baso # (Auto) Abs Immat Gran (auto) Absolute Neuts (auto) Absolute Nucleated RBC Nucleated RBC % (auto) Smear Tech's Comments Sodium Potassium Chloride Carbon Dioxide Anion Gap BUN Creatinine Estim Creat Clear Calc Estimated GFR POC Glucose 90 93 81 Random Glucose Calcium Procedures Date of Service Date of Service: 04/26/25 Progress Note: A&P Assessment and plan (1) Epigastric pain: Status: Acute Plan 1/ epigastric pain, concern for PUD or duodenitis, FH of stomach ca PLAN: 1/ EGD today for assessment, cont with PPI Time Spent With Patient Time: Total time managing care of this patient today ____ minutes. Quality Stroke Does the patient have a stroke diagnosis?: No VTE Prior VTE?: No VTE Risk Level:: Medical - moderate - high VTE Device Contraindication: N/A - Device Ordered VTE Drug Contraindication: Treatment Not Indicated
--- NOTE | 2025-04-26 13:37 | W.PM.OPN ---
Operative Note Operative Note Date of Service: 04/26/25 Narrative: Procedure Description: EGD Indication: epigasric pain Anesthesia: MAC FLEXIBLE TRANSORAL UPPER GASTROINTESTINAL ENDOSCOPY UPPER ENDOSCOPY Consent: Indications for the procedure and potential complications of bleeding, perforation, reaction to medications and missed diagnosis were discussed with the patient and informed consent was obtained. Instrument: Olympus GIF H 190 J mid size upper endoscope Monitoring: Vital signs and clinical assessment, continuous EKG monitoring, Pulse oximetry, Carbon Dioxide monitoring and blood pressure monitoring were done throughout the procedure. Procedure: The patient was placed in the left lateral decubitis position and pre-procedure medications were administered and a bite block was placed. The endoscope was inserted into the mouth and advanced under direct vision to the third part of duodenum. A careful inspection was made as the upper endoscope was withdrawn including a retroflexed examination of the proximal stomach; Findings and interventions are described below. Findings: Larynx:normal Esophagus: GE junction at 35 cm, diaphragm hiatus at 35 cm, mild esophagitis Stomach: patchy erythema and atrophic mucosa . Biopsies were obtained. Grade 2 flap valve on retroflexed examination of the cardia. Separate bx taken from pylorus which appeared edematous, no ulcers seen Duodenum: Mild bulbar duodenitis, no masses or ulcers seen, bx taken Intervention: Biopsies as noted above, Impression/Findings: gastritis duodenitis PLAN: await bx, if h pylori pos then treat GERD precautions can advance diet and allow home with PPI as she feels improved
--- NOTE | 2025-04-26 14:07 | PC.NURSE ---
Confirmed with cigar head piercer upon patient arrival to PACU that fentanyl patch still in plae on posterior left shoulder.
[2025-04-26 16:09] LABS: Glucose, Whole Blood 103 mg/dL (60-115)
--- NOTE | 2025-04-26 17:09 | P.DS_ITS ---
DS: Providers Provider Date of Service: 04/26/25 Date of admission: 04/24/25 09:52 Date of discharge: 04/26/25 Primary care physician: Tram Darby MD Consults: 04/24/25 10:17 Consult to Gastroenterology Routine Consulting Provider: Farzana Jones Reason for consultation: N/V/ epigastric pain; imaging w/ duodenitis, PUD; recent mounjaro Has provider been notified: No DS: Diagnosis Discharge Diagnosis (1) Epigastric pain: Status: Acute DS: Summary Hospital Course Hospital Course: History and physical as per admitting provider. This is a 69-year-old female with history of diabetes, GERD, hypertension, chronic back pain on chronic opiates, multiple other medical issues who presents to the emergency department with abdominal pain. Patient was seen by endocrinology and started on Mounjaro, her 1st dose was April 03. Bedtime she experienced nausea vomiting and diarrhea for 24 hours. She continued to have nausea, vomiting and epigastric pain which persisted but she did take her 2nd dose of Mounjaro on April 15. She has had epigastric abdominal pain which is worse with eating and associated with nausea and vomiting. The pain does not radiate anywhere. She has had no further diarrhea since the day of her first dose of Mounjaro. She has had limited oral intake due to her persistent symptoms. She did have intermittent fever ranging from 100-102 from Saturday the to the but that has now resolved. Since her 1st dose of Mounjaro she has lost 14 lb. Last night she vomited all night. She denies any travel or recent sick contacts. She denies alcohol use, she uses NSAIDs infrequently. Due to persistent symptoms and inability to tolerate epigastric pain any longer she presented to the emergency room for evaluation. Workup revealed leukocytosis of 19,000, she underwent CT scan of the abdomen which showed concern for peptic ulcer disease 69-year-old woman with a history of GERD. Presents to the ER with abdominal pain. Patient is status post EGD today with findings of gastritis. Patient had a negative gastric emptying study in 2001. She was treated symptomatically with IV ppi, antiemetics, IV fluid and pain control. Diet was advanced and patient was able to take a regular diet with any nausea, vomiting or abdominal pain. Patient to continue PPI, may follow up with Gastroenterology as needed. 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 oxycodone liver fibrosis LFTs near baseline Time Attestation Discharge Coordination Time (in mins): 42 Quality: Safe Use of Opioids Does Pt have an Active Cancer Diagnosis on the Problem List?: No Quality: Stroke Does the patient have a stroke diagnosis?: No Physical Exam Exam: Exam: Appearing in no acute distress head is normocephalic atraumatic eyes pupils are PERRLA sclera is anicteric mouth throat mucous membranes are intact and moist neck is supple no lymphadenopathy, no JVD noted lung sounds are clear to auscultation heart regular rate rhythm, clear S1, S2 positive bowel sounds, abdomen is soft, nontender neuro patient is alert x3, no focal deficits Vital Signs: Vital Signs: Last Vital Signs Temp 97.6 F 04/26/25 15:19 Pulse 63 04/26/25 15:19 Resp 18 04/26/25 15:19 BP 148/67 H 04/26/25 15:19 Pulse Ox 97 04/26/25 15:19 O2 Del Method Room Air 04/26/25 15:19 O2 Flow Rate 4 04/26/25 13:45 BMI result Body Mass Index 25.1 DS: Data Data Completed and Pending Pending studies at discharge: Pending at discharge 04/26/25 13:37 Surgical [PTH] Routine Labs on day of discharge: Laboratory Results - last 24 hr 04/25/25 04/26/25 04/26/25 20:08 06:37 07:29 WBC 5.8 RBC 4.06 L Hgb 11.9 L Hct 36.0 L MCV 88.7 MCH 29.3 MCHC 33.1 RDW 13.2 Plt Count 134 L MPV 13.5 H Immature Gran % (Auto) 0.5 H Neut % (Auto) 56.0 Lymph % (Auto) 31.5 Richardson % (Auto) 8.2 Eos % (Auto) 3.1 Baso % (Auto) 0.7 Lymph # (Auto) 1.8 Richardson # (Auto) 0.5 Eos # (Auto) 0.2 Baso # (Auto) 0.0 Abs Immat Gran (auto) 0.03 Absolute Neuts (auto) 3.3 Absolute Nucleated RBC 0.000 Nucleated RBC % (auto) 0.0 Smear Tech's Comments VERIFIED Sodium 142 Potassium 4.2 Chloride 107 Carbon Dioxide 29 Anion Gap 10 L BUN 11 Creatinine 0.90 Estim Creat Clear Calc 54.4 Estimated GFR > 60 POC Glucose 136 H 90 Random Glucose 87 Calcium 9.0 04/26/25 04/26/25 04/26/25 11:59 12:15 16:05 WBC RBC Hgb Hct MCV MCH MCHC RDW Plt Count MPV Immature Gran % (Auto) Neut % (Auto) Lymph % (Auto) Richardson % (Auto) Eos % (Auto) Baso % (Auto) Lymph # (Auto) Richardson # (Auto) Eos # (Auto) Baso # (Auto) Abs Immat Gran (auto) Absolute Neuts (auto) Absolute Nucleated RBC Nucleated RBC % (auto) Smear Tech's Comments Sodium Potassium Chloride Carbon Dioxide Anion Gap BUN Creatinine Estim Creat Clear Calc Estimated GFR POC Glucose 93 81 103 Random Glucose Calcium Discharge Plan Discharge Anticipated Discharge Date/Time: 04/26/25 17:03 Patient Disposition: Home, Self-Care Discharge Diagnosis: Gastritis Referrals: Tram Darby MD [Primary Care Provider, Internal Medicine] - 1 Week Discharge Medications: Continued (DME) pen needle, diabetic 31 gauge x 3/16 needle See Rx Instructions subcut BID Qty: 100 3RF Rx Instructions: qd omeprazole 20 mg capsule,delayed release(DR/EC) 20 mg PO DAILY Qty: 90 0RF (DME) FreeStyle Lite Strips Strip See Rx Instructions .ROUTE .MEDSUPPLY Qty: 100 3RF Rx Instructions: patient to check blood sugar 3 times daily (DME) blood-glucose meter [Accu-Chek Guide Me Glucose Mtr] Misc See Rx Instructions .Route Qty: 1 0RF Rx Instructions: test blood sugar three times per day (DME) lancets [Accu-Chek Softclix Lancets] Misc See Rx Instructions .Route Qty: 100 2RF Rx Instructions: Test blood sugar 3 times per day lisinopril 40 mg tablet 40 mg PO DAILY 90 Days Qty: 90 3RF amlodipine 10 mg tablet 10 mg PO DAILY 90 Days Qty: 90 1RF baclofen 10 mg tablet 10 mg PO BEDTIME Qty: 90 0RF famotidine 40 mg tablet 40 mg PO BEDTIME Qty: 90 0RF Rx Instructions: Please call Dr. Roberts office for refill sucralfate [Carafate] 1 gram tablet 1 g PO BID PRN (Reason: Acid Reflux) dicyclomine 10 mg Capsule 10 mg PO TID PRN (Reason: Abdominal Discomfort) insulin aspart U-100 [Novolog U-100 Insulin aspart] 100 unit/mL solution See Protocol subcut TIDAC Protocol: Insulin Correction Scale Less than or equal to 110 ---- Give (units): 0 111 to 150 Give (units): 0 151 to 200 Give (units): 2 201 to 250 Give (units): 4 251 to 300 Give (units): 6 301 to 350 Give (units): 8 Greater than 350 Give (units): 10 Call MD if Blood Glucose > : 350 albuterol sulfate 90 mcg/actuation HFA aerosol inhaler 1 - 2 puff PO Q4H PRN (Reason: respiratory symptoms) latanoprost 0.005 % drops 1 drp ophthalmic (eye) BEDTIME (DME) pen needle, diabetic 31 gauge x 3/16 needle See Rx Instructions subcut BID Qty: 100 3RF Rx Instructions: qd ondansetron HCl 4 mg tablet 4 mg PO ONCE PRN (Reason: nausea and vomiting) 30 Days Qty: 30 0RF (DME) Accu-Chek Guide test strips Strip See Rx Instructions .Route Qty: 100 2RF Rx Instructions: Test blood sugar 3 times per day oxycodone 5 mg capsule 5 mg PO DAILY PRN (Reason: For breakthrough back pain) Qty: 30 0RF Rx Instructions: Partial Fill upon patient request. fentanyl 50 mcg/hr patch 72 hour 1 patch transdermal Q48H 30 Days Qty: 15 0RF (DME) pen needle, diabetic 31 gauge x 3/16 needle See Rx Instructions subcut BID Qty: 100 3RF Rx Instructions: qd insulin glargine U-300 conc [Toujeo SoloStar U-300 Insulin] 300 unit/mL (1.5 mL) insulin pen 34 unit subcut DAILY 90 Days Qty: 13.5 0RF Discharge Orders: Discharge Order (Routine); Ordered 04/26/25 Ordered By: Lety Cabral Diet: Advance to usual diet Activity on Discharge: As tolerated Stand Alone Forms: Patient Portal Discharge page Print Language: Luxembourgish Care Plan Goals: Continue omeprazole. Avoid high acidity foods Health Concerns: Gastritis Plan of Treatment: Follow up with primary care provider as needed Take all medications as prescribed Assessment: See discharge summary
== END 2025-04-26 17:47 | disposition home or self-care (01) ==
LOC: HO.ED 09:48 → HO.EDOVER 09:55 → HO.S3 11:14
PROVIDERS: Internal Medicine Gastroenterology; Student in an Organized Health Care Education/Training Program; Admitting Provider Physician Assistant Medical; Emergency Provider Emergency Medicine; PCP Internal Medicine; Visit Provider Nurse Practitioner Acute Care
PROC: 0DJ08ZZ Inspection of Upper Intestinal Tract, Via Natural or Artificial Opening Endoscopic (ICD-10-PCS; CPT 43235; principal; 2025-04-26 13:00)
DX: K29.70 Gastritis, unspecified, without bleeding (principal); K29.80 Duodenitis without bleeding; R10.13 Epigastric pain; R00.0 Tachycardia, unspecified; R10.11 Right upper quadrant pain; R11.10 Vomiting, unspecified; K74.00 Hepatic fibrosis, unspecified; G89.4 Chronic pain syndrome; K21.9 Gastro-esophageal reflux disease without esophagitis; I10 Essential (primary) hypertension; E13.9 Other specified diabetes mellitus without complications; K27.9 Peptic ulcer, site unspecified, unspecified as acute or chronic, without hemorrhage or perforation; D72.829 Elevated white blood cell count, unspecified; Z79.899 Other long term (current) drug therapy
CPT/HCPCS: 43239; 36415; 74177; 80048; 80053; 82150; 82248; 82947; 83690; 84484; 85025; 88305; 88313; 88342; 93005; 96361; 96374; 96375; 96376; 99221; 99285; J2003; J2405; J2470; J2704; J7120; Q9967

== ENCOUNTER → 2025-04-24 04:09 | Outpatient (BNV) | payer MEDICARE, MEDICAID, SELFPAY | PROVIDERS: Admitting Provider Physician Assistant Medical; Emergency Provider Emergency Medicine; PCP Internal Medicine; Visit Provider Internal Medicine Cardiovascular Disease | DX: R00.0 Tachycardia, unspecified (principal) | CPT/HCPCS: 93010 ==

== ENCOUNTER → 2025-04-24 06:55 | Outpatient (BNV) | payer MEDICARE, MEDICAID, SELFPAY | PROVIDERS: Admitting Provider Physician Assistant Medical; Emergency Provider Emergency Medicine; PCP Internal Medicine; Visit Provider Specialist | DX: R10.13 Epigastric pain (principal); R11.10 Vomiting, unspecified | CPT/HCPCS: 74177 ==

== ENCOUNTER → 2025-04-24 09:52 | Outpatient (BNV) | payer MEDICARE, MEDICAID, SELFPAY | PROVIDERS: Admitting Provider Physician Assistant Medical; Emergency Provider Emergency Medicine; PCP Internal Medicine; Visit Provider Internal Medicine Gastroenterology | DX: K27.9 Peptic ulcer, site unspecified, unspecified as acute or chronic, without hemorrhage or perforation (principal) | CPT/HCPCS: 99223 ==

== ENCOUNTER → 2025-04-24 09:52 | Outpatient (BNV) | payer MEDICARE, MEDICAID, SELFPAY | PROVIDERS: Admitting Provider Physician Assistant Medical; Emergency Provider Emergency Medicine; PCP Internal Medicine; Visit Provider Physician Assistant Medical | DX: E13.9 Other specified diabetes mellitus without complications (principal); R11.10 Vomiting, unspecified; R10.13 Epigastric pain | CPT/HCPCS: 99223; 99232 ==

== ENCOUNTER 2025-04-30 12:52 | Outpatient (AMB) | payer MEDICARE, MEDICAID, SELFPAY ==
--- NOTE | 2025-04-30 12:56 | A.OFFPC_ITS ---
Vital Signs 04/30/25 12:59 Height 5 ft 3 in Weight 154 lb BMI 27.3 BP 130/70 Blood Pressure Location Rt brachial Position Sitting Respiration 16 Pulse 84 Pulse Source Pulse Oximeter Temp 98.2 F Temp Source Oral Intake Visit Reasons: 1 month f/up Incident Response Specialist Required: No Allergies duloxetine (From Cymbalta) Allergy (Intermediate, Verified 04/30/25 12:59) Gastrointestinal Upset gabapentin Allergy (Intermediate, Verified 04/30/25 12:59) Gastrointestinal Upset milnacipran (From Savella) Allergy (Intermediate, Verified 04/30/25 12:59) Gastrointestinal Upset naloxegol (Movantik) Allergy (Intermediate, Verified 04/30/25 12:59) Gastrointestinal Upset pregabalin (From Lyrica) Allergy (Intermediate, Verified 04/30/25 12:59) Gastrointestinal Upset Medication List - Last Reconciled 04/30/25 by Tram Darby MD albuterol sulfate 90 mcg/actuation 1 - 2 puffs PO Q4H PRN amlodipine 10 mg PO DAILY 90 days baclofen 10 mg PO BEDTIME blood sugar diagnostic (Accu-Chek Guide test strips) Test blood sugar 3 times per day blood-glucose meter (Accu-Chek Guide Me Glucose Meter) test blood sugar three times per day dicyclomine 10 mg PO TID PRN famotidine 40 mg PO BEDTIME fentanyl 50 mcg/hr 1 patch transdermal Q48H 30 days FreeStyle Lite Strips (blood sugar diagnostic) patient to check blood sugar 3 times daily NS insulin aspart U-100 (Novolog U-100 Insulin aspart) See Protocol units subcut TIDAC insulin glargine U-300 conc (Toujeo SoloStar U-300 Insulin) 34 units (0.1133 mL) subcut DAILY 90 days lancets (Accu-Chek Softclix Lancets) Test blood sugar 3 times per day latanoprost 0.005% 1 drp ophthalmic (eye) BEDTIME lisinopril 40 mg PO DAILY 90 days omeprazole 40 mg PO DAILY ondansetron HCl 4 mg PO ONCE PRN 30 days oxycodone 5 mg PO DAILY PRN pen needle, diabetic qd pen needle, diabetic qd pen needle, diabetic qd sucralfate (Carafate) 1 g PO BID 30 days Tobacco use date assessed: 04/30/25 Fall risk assessment: No Falls in past year Last assessed Fall Risk: 04/30/25 Dental Screening Dental Screen Date: 04/30/25 Did you have a dental visit in the last 12 months?: Yes Did you have a dental problem in the last 6 months where you did not have access to dental care?: No Was dental information given to patient?: Patient has dentist HPI 1 month f/up HPI Details Patient is 69-year-old female who was in emergency room April. Date of discharge 04/26/2025 Patient presented with upper abdominal pain epigastric right upper quadrant area radiating to right flank for 2 weeks after patient was started on Mounjaro for diabetes controlled through endocrinology. She suffers from chronic liver fibrosis and is status post cholecystectomy many years ago. Patient did not take Mounjaro injection a week before but pain continued. Patient received PPI in emergency room with no improvement in symptoms. She was admitted for GI consultation. Her liver enzymes are chronically elevated She was evaluated by Dr. Jones Gastroenterology She underwent CT scan of abdomen which showed concern for peptic ulcer disease When patient felt better she was discharged with a diagnosis of gastritis No new medications were given Patient is diabetic and uses continues glucose monitoring with the help of a device Which is helping control her sugars better Patient has gone back to using insulin which will be managed by [facility] now Abdominal pain is better On exam today she had no abdominal pain with palpation either However I would like her to go up on omeprazole to 40 mg while she wait to see Gastroenterology [facility] in June She is also taking Carafate up to 2 times a day as needed Constipation: - The patient has not had a bowel moveme nt in nine days. - The patient is experiencing significan t discomfort due to constipation. Instructed patient to start taking Senokot S1 or 2 tablets every night and if still no bowel movement she is to get back to me as soon as possible Problem List - Severe abdominal pain resolved - liver fibrosis - chronic GERD - gastritis - Constipation severe - Diabetes mellitus - Failed back syndrome Plan - The patient's abdominal pain has resol mitch - She will continue taking insulin and o meprazole. Omeprazole is increased to 40 mg daily for symptomatic relief. - The patient is advised to consider Sen okot S for constipation, beginning with one tablet at bedtime and adjusting based on response. - Continue current diabetic management p uriel with consultation follow-up scheduled in six months. All diabetic supplies and medications through endocrinology now - Monitor for any discomfort requiring s ucralfate, understanding it can cause constipation. - Fentanyl patch to continue for failed back syndrome management. Follow-up 4 weeks Review of Systems - General: No fever no chills - Neurological: No headaches no dizziness - Ear nose throat: No sore throat no hearing difficulty no ear pain - Cardiovascular: No syncope, no chest pain, no palpitations - Gastrointestinal: No nausea vomiting or diarrhea - Endocrine: No polyuria polydipsia no heat intolerance - Genitourinary: No dysuria , no blood in urine Physical Exam General: No acute distress HEENT: No acute findings Neck: Supple Respiratory system: Able to talk in full sentences, no audible wheeze Cardiovascular: S1-S2 regular in rate and rhythm, blood pressure is 130/70 Gastrointestinal: No pain, today, bowel sounds positive Extremities: No new findings 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 oriented x3 motor intact Skin: Normal turgor, PFSH Medical History Asthma Hx of irritable bowel syndrome Pain management Narcotic dependence Herniated nucleus pulposus, cervical Hypertension, essential Muscle spasm Failed back syndrome DJD (degenerative joint disease) of thoracic spine Radiculitis of right cervical region Chronic GERD LFTs abnormal Diabetes 1.5, managed as type 1 Surgical History History of liver biopsy Hx of laser iridotomy H/O cataract extraction History of cervical spinal surgery History of lumbar surgery History of esophagogastroduodenoscopy History of colonoscopy History of esophagogastroduodenoscopy History of hysterectomy with oophorectomy Hx of cholecystectomy Family History Father No problems noted. Mother Stomach cancer Social History Housing: House Are you a primary chiropractic care to a significant other at home: No Do you presently have visiting nurse or other home services: No Alcohol intake: never Patient Tobacco Use Status: Never used Tobacco e-Cigarette/Vaping Use: Never Used Second Hand Smoke Exposure: No service: No Current occupational status: disabled Cognitive needs: No Hearing needs: No Vision needs: Yes Questionnaire Thrive Questionnaire Date Thrive assessed: 04/25/25 I am a: Patient SACHIN-7 AMB Questionnaire SACHIN-7 Date SACHIN - 7 assessed: 01/29/25 Source: Developed by Drs. Tommy Graham, Marnie Ford, Sebastien Vaughn and colleagues, with an educational mayito from [employer]. Physical exam (Primary Care) Vital Signs: Last Vital Signs Temp 98.2 F 04/30/25 12:59 Pulse 84 04/30/25 12:59 Resp 16 04/30/25 12:59 BP 130/70 04/30/25 12:59 BMI result Body Mass Index 27.3 Tobacco/Smoking Status: Tobacco use Status Tobacco use date assessed 04/30/25 04/30/25 13:04 Patient Tobacco Use Status Never used Tobacco 04/30/25 12:57 e-Cigarette/Vaping Use Never Used 04/30/25 12:57 Thrive Assessment: Date of Thrive Assessment Date Thrive assessed 04/25/25 04/30/25 12:57 Coding Level of Care Code Est Pt Level 5 (24586) Diagnoses Hospital discharge follow-up Z09 Other acute gastritis without hemorrhage K29.00 Chronicity: acute Gastritis bleeding: without bleeding Gastritis type: other gastritis Medication side effect T88.7XXA Weight loss due to medication R63.4; T50.905A Hypertension, essential I10 Diabetes 1.5, managed as type 1 E13.9 Liver fibrosis K74.00 Failed back syndrome M96.1 HNP (herniated nucleus pulposus), lumbar M51.26 Pain management R52 Narcotic dependence F11.20 Time Spent (min) 40 Comment Reviewing hospital notes/labs/auft-ff-uejh/coordination of care Assessment & Plan Assessment & Plan (1) Hospital discharge follow-up: Code(s): Z09 - Encounter for follow-up examination after completed treatment for conditions other than malignant neoplasm Category: Medical (2) Gastritis: Code(s): K29.70 - Gastritis, unspecified, without bleeding Category: Medical Qualifiers: Chronicity: acute Gastritis bleeding: without bleeding Gastritis type: other gastritis Qualified Code(s): K29.00 - Acute gastritis without bleeding (3) Medication side effect: Code(s): T88.7XXA - Unspecified adverse effect of drug or medicament, initial encounter Category: Medical (4) Weight loss due to medication: Code(s): R63.4 - Abnormal weight loss; T50.905A - Adverse effect of unspecified drugs, medicaments and biological substances, initial encounter Category: Medical (5) Hypertension, essential: Code(s): I10 - Essential (primary) hypertension Category: Medical (6) Diabetes 1.5, managed as type 1: Comment: taking lantus insulin Code(s): E13.9 - Other specified diabetes mellitus without complications Category: Medical (7) Liver fibrosis: Code(s): K74.00 - Hepatic fibrosis, unspecified Category: Medical (8) Failed back syndrome: Comment: uses fentanyl patch & oxycodone Code(s): M96.1 - Postlaminectomy syndrome, not elsewhere classified Category: Medical (9) HNP (herniated nucleus pulposus), lumbar: Code(s): M51.26 - Other intervertebral disc displacement, lumbar region Category: Medical (10) Pain management: Code(s): R52 - Pain, unspecified Category: Medical (11) Narcotic dependence: Code(s): F11.20 - Opioid dependence, uncomplicated Category: Medical Plan Patient is 69-year-old female who was in emergency room April. Date of discharge 04/26/2025 Patient presented with upper abdominal pain epigastric right upper quadrant area radiating to right flank for 2 weeks after patient was started on Mounjaro for diabetes controlled through endocrinology. She suffers from chronic liver fibrosis and is status post cholecystectomy many years ago. Patient did not take Mounjaro injection a week before but pain continued. Patient received PPI in emergency room with no improvement in symptoms. She was admitted for GI consultation. Her liver enzymes are chronically elevated She was evaluated by Dr. Jones Gastroenterology She underwent CT scan of abdomen which showed concern for peptic ulcer disease When patient felt better she was discharged with a diagnosis of gastritis No new medications were given Patient is diabetic and uses continues glucose monitoring with the help of a device Which is helping control her sugars better Patient has gone back to using insulin which will be managed by [facility] now Abdominal pain is better On exam today she had no abdominal pain with palpation either However I would like her to go up on omeprazole to 40 mg while she wait to see Gastroenterology [facility] in June She is also taking Carafate up to 2 times a day as needed Constipation: - The patient has not had a bowel movement in nine days. - The patient is experiencing significant discomfort due to constipation. Instructed patient to start taking Senokot S1 or 2 tablets every night and if still no bowel movement she is to get back to me as soon as possible Problem List - Severe abdominal pain resolved - liver fibrosis - chronic GERD - gastritis - Constipation severe - Diabetes mellitus - Failed back syndrome Plan - The patient's abdominal pain has resolved - She will continue taking insulin and omeprazole. Omeprazole is increased to 40 mg daily for symptomatic relief. - The patient is advised to consider Senokot S for constipation, beginning with one tablet at bedtime and adjusting based on response. - Continue current diabetic management plan with consultation follow-up scheduled in six months. All diabetic supplies and medications through endocrinology now - Monitor for any discomfort requiring sucralfate, understanding it can cause constipation. - Fentanyl patch to continue for failed back syndrome management. Follow-up 4 weeks Medications: New sennosides-docusate sodium 8.6-50 mg (Senokot-S) 1 tab-cap PO BEDTIME 90 tabs 0RF 90 days K59.03 - Drug induced constipation, T40.2X5A - Adverse effect of other opioids, initial encounter Changed From omeprazole 20 mg PO DAILY 90 caps 0RF heartburn To omeprazole 40 mg PO DAILY 90 caps 0RF heartburn Refilled sucralfate (Carafate) 1 g PO BID 60 tabs 0RF Acid Reflux 30 days fentanyl 50 mcg/hr 1 patch transdermal Q48H 15 ea 0RF 30 days F11.20 - Opioid dependence, uncomplicated, M50.20 - Other cervical disc displacement, unspecified cervical region, M96.1 - Postlaminectomy syndrome, not elsewhere classified, R52 - Pain, unspecified
[2025-04-30 12:59] VITALS: BP 130/70; PULSE 84; RESP 16; TEMP 36.8; BMI 27.3
--- OUTSIDE RECORDS SUMMARY | 2025-04-30 14:44 | XMS_ITS | Patient Health Record ---
Author Organization [facility] Address [address] [place] [address] Care Team Providers Care Hospice Executive Director Name Role Phone Wilner GONSALES, Asma Primary Care Provider Tommy Almonte [phone] Allergies Allergen (clinical drug ingredient) Drug/Non Drug Allergy documented on EMR Reaction Allergy Type Onset Date Status naloxegol Movantik Unknown Drug Allergy Active Results Component Value Reference Range Notes Complete Blood Count Auto Di ff Reviewed date:11/23/2024 06:53:58 PM Interpretation: Performing Lab:[facility], [address] [place] [phone] Notes/Report: White Blood Count 8.3 4.8-10.8 X10*3/uL [...] Reviewed date:11/23/2024 06:54:18 PM Interpretation: Performing Lab:[address] [phone] Notes/Report: Prothrombin Time 10.7 10.9-12.4 SEC INTERNATIONAL [...] Reviewed date:11/23/2024 06:54:09 PM Interpretation: Performing Lab:[address] [address] Notes/Report: Partial Thromboplastin Time 32.4 26.0-36.8 SEC For information regarding the monitoring of direct thrombin inhibitors, please refer to Pharmacy. Liver Panel Reviewed date:2024 10:00:04 PM Interpretation: Performing Lab:[address] [address] Notes/Report: Bilirubin Total 0.7 0.0-1.0 mg/dL Bilirubin Direct 0.3 0.0-0.5 mg/dL Aspartate Amino Transferase 110 5-31 U/L Alanine Aminotransferase 189 0-31 U/L Total Protein 8.2 6.5-8.0 g/dL Albumin Level 4.1 3.5-5.0 g/dL Alkaline Phosphatase 406 39-117 U/L Liver Fibrosis Pnl Reviewed date:11/30/2024 06:17:11 PM Interpretation: Performing Lab:[facility], [address] [place] [phone] Notes/Report: Liver Fibrosis Score 0.35 Liver Fibrosis [...] a>0.62 and a<=1.00 : A3 (severe activity) JRL-Ofmhz-3-Macroglobulin 164 106-279 mg/dL FIB-Haptoglobin 170 43-212 mg/dL FIB-Apolipoprotein A1 227 101-198 mg/dL FIB-Total Bilirubin 0.6 0.2-1.2 mg/dL FIB-GGT 1488 3-65 U/L FIB-ALT 143 6-29 U/L Reference ID [id number] Footnote SEE NOTE The reliability of results [...] The performance characteristics have been determined by [facility]. It has not been cleared or approved by the U.S. Food and Drug Administration. Performance characteristics refer to the analytical performance of the test. [employer], the associated logo, [employer] and all associated [employer] dong are the registered trademarks of [employer]. All third constitution party dong - (R) and (TM) - are the property of their respective owners. (C) 8741-3348 [employer]. All rights reserved. THIS TEST WAS PERFORMED AT: [employer] [facility] [address] [place] [address] CRISTINA GIORDANO MD,PHD,PITA Complete Blood Count Auto Di ff Reviewed date:2024 09:08:47 AM Interpretation: Performing Lab:[facility], [address] [place] [phone] Notes/Report: White Blood Count 12.3 4.8-10.8 X10*3/uL [...] INR Reviewed date:2024 09:08:33 AM Interpretation: Performing Lab:[facility], [address] [place] [phone] Notes/Report: Prothrombin Time 10.6 10.9-12.4 SEC INTERNATIONAL [...] Time Reviewed date:2024 09:08:25 AM Interpretation: Performing Lab:[facility], [address] [place] [phone] Notes/Report: Partial Thromboplastin Time 32.7 26.0-36.8 SEC For information regarding the monitoring of direct thrombin inhibitors, please refer to Pharmacy. Basic Metabolic Panel Reviewed date:2024 09:08:12 AM Interpretation: Performing Lab:[facility], [address] [place] [phone] Notes/Report: Sodium 140 135-145 mmol/L Potassium 5.3 [...] Blood Reviewed date:2024 09:08:54 AM Interpretation: Performing Lab:[facility], [address] [place] [phone] Notes/Report: Glucose, Whole Blood 123 60-115 mg/dL METER # : [id number] Pathology Reviewed date:04/29/2025 11:45:09 AM Interpretation: Performing Lab:[facility], [address] [place] [phone] Notes/Report: US biopsy liver Reviewed date:12/03/2024 12:41:31 AM Interpretation: Performing Lab: Notes/Report: [address] [address] Ultrasound Report Signed Patient: Syeda Doll MR#: [id number] : 1955 Acct:[id number] Age/Sex: 68 / F ADM Date: 11/25/24 Loc: HO.[facility] Attending Dr: Tommy Roberts MD Ordering Physician: Tommy Roberts MD Date of Service: 11/25/24 Procedure(s): US biopsy liver Accession Number(s): [id number] cc: Tram Darby MD; Tommy Roberts MD [...] OV> 11/25/24 1626 DD/ 1500 TD/TT: 11/25/24 1548 Tobacco Shaker: Type and Screen Reviewed date:2024 09:08:19 AM Interpretation: Performing Lab:[facility], [address] [place] [phone] Notes/Report: Blood Type OP Antibody Screen NEGATIVE Liver Panel Reviewed date:04/29/2025 11:45:28 AM Interpretation: Performing Lab:[facility], [address] [place] [phone] Notes/Report: Bilirubin Total 0.4 0.0-1.0 mg/dL Bilirubin [...] e a day; Duration: 30 days 12/04/2024 Not-Pita g Lisinopril 40 MG TAKE 1 TABLET BY DAVI TH EVERY DAY Orally Once a day Active Omeprazole 20 MG TAKE 1 CAPSULE BY [facility] EVERY DAY; Duration: 90 Not-Taki [...] Status Risk Notes Problem Colon cancer screening (146225076) Colon cancer screening (Z12.11) Active confirmed Problem Screening for malignant neoplasm of colon (875813230) Encounter for screening for malignant neoplasm of colon (Z12.11) Active confirmed Problem History of adenomatous polyp of colon (140395308) History of adenomatous polyp of colon (Z86.010) Active confirmed Problem Constipation (36628292) Constipation (K59.00) Active confirmed Problem Abdominal bloating (240494370) Abdominal bloating (R14.0) Active confirmed Problem Early satiety (844835545) Early satiety (R68.81) Active confirmed Problem Elevated liver enzymes level (654646955) Elevated liver function tests (R79.89) Active confirmed Problem Elevated liver enzymes level (122723666) Elevated liver enzymes (R74.8) Active confirmed Problem Fatty liver (044399350) Fatty liver (K76.0) Active confirmed Problem Gastroesophageal reflux disease (029294256) Gastroesophageal reflux disease, esophagitis presence not specified (K21.9) Active confirmed Problem Serum alpha-fetoprotein level elevated (225418855) Elevated alpha fetoprotein (R77.2) Active confirmed Problem Generalized abdominal pain (370861137) Abdominal pain, generalized (R10.84) Active confirmed Problem Alkaline phosphatase raised (229171819) Elevated alkaline phosphatase level (R74.8) Active confirmed Problem Irritable bowel syndrome (16598318) Irritable bowel syndrome, unspecified type (K58.9) Active confirmed Problem Right upper quadrant pain (567513018) Abdominal pain, RUQ (right upper quadrant) (R10.11) Active confirmed Problem Hepatic fibrosis (disorder) (57014085) Liver fibrosis (K74.00) Active confirmed Problem Abnormal findings diagnostic imaging of liver and biliary tract (300369248) Abnormal ultrasound of biliary tract (R93.2) Active confirmed Vital Signs Temperature 98.9 degrees Fahrenheit 04/14/2025 Blood pressure diastolic 01 mm Hg 04/14/2025 Height 63 in 04/14/2025 Blood pressure systolic 001 mm Hg 04/14/2025 Weight 159.4 lbs 04/14/2025 BMI 28.23 kg/m2 04/14/2025 Encounters Encounter Location Date Provider Diagnosis [facility] [address] [place] [phone] 11/13/2024 Tommy Roberts Elevated liver enzymes R74.8 and Fatty liver K76.0 [facility] [address] [place] [phone] 04/14/2025 Tommy Roberts Liver fibrosis K74.00 ; Elevated liver function tests R79.89 ; Colon cancer screening Z12.11 and Fatty liver K76.0 [facility] [address] [place] [phone] 11/16/2024 Tommy Roberts [facility] [address] [place] [phone] 12/02/2024 Tommy Roberts Elevated liver function tests [...] tests (ICD-10 - R79.89) Overall, Syeda appears well. We did review the results of her liver biopsy and I did advise her of the finding of the stage III fibrosis although fortunately they did not see cirrhosis. However, we did review that there could be sampling error which might therefore miss any sign of cirrhosis or significant areas of fatty infiltration that were not seen on the biopsy. I advised her that at this point we will be very important that we continue to try to treat the fatty liver as best as possible. She apparently could not tolerate the ursodiol and does not want to try it again. We did review that the GLP-1 medications with their associated better control of diabetes and help with weight loss may very well be a good treatment for her fatty liver as well. Therefore, I would be inclined to hold off on adding any other treatment such as the newly released Rezdiffra until we see if there can be any positive effect from the GLP-1 medication. We did review the importance of keeping her diabetes in good control for overall health as well as more specifically for the fatty liver. I shall check a liver profile today to compare to the one from back in November where there was significant elevation. I will then have her do those every 2 months or so such that we can see if there is any improvement on the GLP-1 medication. In the meantime, I have given her an appointment to see me again next Spring at which point we can review things further. If the LFTs improved on a GLP-1 medication we can simply continue that line of treatment. She does advise me that she did turn in a Cologuard test to your office last year or so and I will obtain a copy of that result. As you know, we have never been able to do a complete colonoscopy on her due to her inability to do any type of oral prep. Syeda was comfortable with this plan. Thank you again for allowing me to participate in Syeda's care. I shall continue to keep you advised of her progress. 04/14/2025 Liver fibrosis (ICD-10 - K74.00) Overall, Syeda appears well. We did review the results of her liver biopsy and I did advise her of the finding of the stage III fibrosis although fortunately they did not see cirrhosis. However, we did review that there could be sampling error which might therefore miss any sign of cirrhosis or significant areas of fatty infiltration that were not seen on the biopsy. I advised her that at this point we will be very important that we continue to try to treat the fatty liver as best as possible. She apparently could not tolerate the ursodiol and does not want to try it again. We did review that the GLP-1 medications with their associated better control of diabetes and help with weight loss may very well be a good treatment for her fatty liver as well. Therefore, I would be inclined to hold off on adding any other treatment such as the newly released Rezdiffra until we see if there can be any positive effect from the GLP-1 medication. We did review the importance of keeping her diabetes in good control for overall health as well as more specifically for the fatty liver. I shall check a liver profile today to compare to the one from back in November where there was significant elevation. I will then have her do those every 2 months or so such that we can see if there is any improvement on the GLP-1 medication. In the meantime, I have given her an appointment to see me again next Spring at which point we can review things further. If the LFTs improved on a GLP-1 medication we can simply continue that line of treatment. She does advise me that she did turn in a Cologuard test to your office last year or so and I will obtain a copy of that result. As you know, we have never been able to do a complete colonoscopy on her due to her inability to do any type of oral prep. Syeda was comfortable with this plan. Thank you again for allowing me to participate in Syeda's care. I shall continue to keep you advised of her progress. 12/02/2024 Elevated liver function tests (ICD-10 - [...] again for allowing me to participate in Syead's care. I shall continue to keep you advised of her progress.. 04/14/2025 Colon cancer screening (ICD-10 - Z12.11) Need Cologuard test results from Dr. Darby's office__done in the past year or so Overall, Syeda appears well. We did review the results of her liver biopsy and I did advise her of the finding of the stage III fibrosis although fortunately they did not see cirrhosis. However, we did review that there could be sampling error which might therefore miss any sign of cirrhosis or significant areas of fatty infiltration that were not seen on the biopsy. I advised her that at this point we will be very important that we continue to try to treat the fatty liver as best as possible. She apparently could not tolerate the ursodiol and does not want to try it again. We did review that the GLP-1 medications with their associated better control of diabetes and help with weight loss may very well be a good treatment for her fatty liver as well. Therefore, I would be inclined to hold off on adding any other treatment such as the newly released Rezdiffra until we see if there can be any positive effect from the GLP-1 medication. We did review the importance of keeping her diabetes in good control for overall health as well as more specifically for the fatty liver. I shall check a liver profile today to compare to the one from back in November where there was significant elevation. I will then have her do those every 2 months or so such that we can see if there is any improvement on the GLP-1 medication. In the meantime, I have given her an appointment to see me again next Spring at which point we can review things further. If the LFTs improved on a GLP-1 medication we can simply continue that line of treatment. She does advise me that she did turn in a Cologuard test to your office last year or so and I will obtain a copy of that result. As you know, we have never been able to do a complete colonoscopy on her due to her inability to do any type of oral prep. Syeda was comfortable with this plan. Thank you again for allowing me to participate in Syeda's care. I shall continue to keep you advised of her progress. 04/14/2025 Fatty liver (ICD-10 - K76.0) Overall, Syeda appears well. We did review the results of her liver biopsy and I did advise her of the finding of the stage III fibrosis although fortunately they did not see cirrhosis. However, we did review that there could be sampling error which might therefore miss any sign of cirrhosis or significant areas of fatty infiltration that were not seen on the biopsy. I advised her that at this point we will be very important that we continue to try to treat the fatty liver as best as possible. She apparently could not tolerate the ursodiol and does not want to try it again. We did review that the GLP-1 medications with their associated better control of diabetes and help with weight loss may very well be a good treatment for her fatty liver as well. Therefore, I would be inclined to hold off on adding any other treatment such as the newly released Rezdiffra until we see if there can be any positive effect from the GLP-1 medication. We did review the importance of keeping her diabetes in good control for overall health as well as more specifically for the fatty liver. I shall check a liver profile today to compare to the one from back in May where there was significant elevation. I will then have her do those every 2 months or so such that we can see if there is any improvement on the GLP-1 medication. In the meantime, I have given her an appointment to see me again next Spring at which point we can review things further. If the LFTs improved on a GLP-1 medication we can simply continue that line of treatment. She does advise me that she did turn in a Cologuard test to your office last year or so and I will obtain a copy of that result. As you know, we have never been able to do a complete colonoscopy on her due to her inability to do any type of oral prep. Syeda was comfortable with this plan. Thank you again for allowing me to participate in Syeda's care. I shall continue to keep you advised of her progress. Plan Of Treatment Pending Test Test Name Order Date BUN 09/06/2023 LIVER PROFILE 04/14/2025 LIVER PROFILE 11/15/2023 LIVER PROFILE 12/02/2024 LIVER PROFILE 10/07/2019 LIVER PROFILE 07/03/2018 LIVER PROFILE 04/20/2020 LIVER PROFILE 10/11/2020 LIVER [...] COLONOSCOPY 06/07/2021 Next Appt Details Provider Name:Tommy Cuellar Armando , 10/13/2025 01:20:00 PM, [address] [facility], [address], [place], [address], Insurance Providers Payer Name Payer Address Payer Phone Subscriber Number Group Number Insured Name Patient Relationship to Insured Coverage Start Date Coverage End Date MEDICARE OF [place] [address] [place] [address] [id number] SYEDA DOLL Self - patient is the insured 0 MEDICAID OF [employer] [employer] [facility] [address] [place] [phone] [id number] SYEDA DOLL Self - patient is the insured Medical (General) History Medical History History ICD Code IDDM Hypertension Denies [place],CVA,Lung disease,renal disease Neg. colonoscopy in 2004 wit h me and a negative colonoscopy [place] [address] Nguyen EGD [place] [address] Nguyen- mild gastritis with biopsies negative for H. pylori. Elevated LFTs in 2017- neg. w/u, includi ng MRCP- fatty liver [...] to her use of a fentanyl patch Liver biopsy in November 2024 rev ealed stage III fibrosis, no sign of cirrhosis, and no significant inflammation. Other than fatty liver there was no other specific abnormalities that would account for her elevated LFTs Surgical History Surgery Date(Month/Year) Right Cataract Cervical disc surgery- Dr. Heath 07/2020 Lower back spinal fusion MELONIE Cholecystectomy > 20 years ago
== END 2025-04-30 13:25 | disposition home or self-care (01) ==
LOC: HO.HMCC 12:53
PROVIDERS: PCP Internal Medicine; Visit Provider Internal Medicine
DX: K29.00 Acute gastritis without bleeding (principal); E13.9 Other specified diabetes mellitus without complications; F11.20 Opioid dependence, uncomplicated; R63.4 Abnormal weight loss; Z09 Encounter for follow-up examination after completed treatment for conditions other than malignant neoplasm; T50.905A Adverse effect of unspecified drugs, medicaments and biological substances, initial encounter; I10 Essential (primary) hypertension; K74.00 Hepatic fibrosis, unspecified; M96.1 Postlaminectomy syndrome, not elsewhere classified; M51.26 Other intervertebral disc displacement, lumbar region; R52 Pain, unspecified

== ENCOUNTER → 2025-04-30 12:52 | Outpatient (BNVA) | payer MEDICARE, MEDICAID, SELFPAY | PROVIDERS: PCP Internal Medicine; Visit Provider Internal Medicine | DX: Z09 Encounter for follow-up examination after completed treatment for conditions other than malignant neoplasm (principal); K29.00 Acute gastritis without bleeding; I10 Essential (primary) hypertension; E13.9 Other specified diabetes mellitus without complications; K74.00 Hepatic fibrosis, unspecified; M96.1 Postlaminectomy syndrome, not elsewhere classified; R52 Pain, unspecified; F11.20 Opioid dependence, uncomplicated; R63.4 Abnormal weight loss; Z68.27 Body mass index [BMI] 27.0-27.9, adult; T50.905D Adverse effect of unspecified drugs, medicaments and biological substances, subsequent encounter | CPT/HCPCS: 99212 ==

== ENCOUNTER 2025-05-04 12:20 | Outpatient (AMB) | payer MEDICARE, MEDICAID, SELFPAY ==
--- NOTE | 2025-05-04 13:04 | A.OFFVIS_ITS ---
Intake Intake Visit Reasons: T2DM Allergies duloxetine (From Cymbalta) Allergy (Intermediate, Verified 04/30/25 12:59) Gastrointestinal Upset gabapentin Allergy (Intermediate, Verified 04/30/25 12:59) Gastrointestinal Upset milnacipran (From Savella) Allergy (Intermediate, Verified 04/30/25 12:59) Gastrointestinal Upset naloxegol (Movantik) Allergy (Intermediate, Verified 04/30/25 12:59) Gastrointestinal Upset pregabalin (From Lyrica) Allergy (Intermediate, Verified 04/30/25 12:59) Gastrointestinal Upset HPI Comprehensive Diabetes Asmnt Most Recent Diabetes Results: Hemoglobin A1c 6.8 % 02/12/20 Microalb/Creat Ratio, (<30) 4.5 ug/mg cr 09/30/24 Cholesterol, (<200) 234 mg/dL H 09/30/24 HDL Cholesterol, (>40) 67 mg/dL 09/30/24 Triglycerides, (<150) 194 mg/dL H 09/30/24 Creatinine, (0.5-1.4) 0.90 mg/dL 04/26/25 BUN, (9-16) 11 mg/dL 04/26/25 Sodium, (135-145) 142 mmol/L 04/26/25 Potassium, (3.3-5.1) 4.2 mmol/L 04/26/25 Chloride, (96-108) 107 mmol/L 04/26/25 Carbon Dioxide, (22-29) 29 mmol/L 04/26/25 Calcium, (8.4-10.2) 9.0 mg/dL 04/26/25 AST, (5-31) 46 U/L H 04/24/25 ALT, (0-31) 98 U/L H 04/24/25 Total Protein, (6.5-8.0) 8.7 g/dL H 04/24/25 Albumin, (3.5-5.0) 4.5 g/dL 04/24/25 [facility] Medical History (Updated 05/04/25 @ 14:26 by Cassandra Kolb RN) Diabetes 1.5, managed as type 1 PUD (peptic ulcer disease) Asthma Hx of irritable bowel syndrome Pain management Narcotic dependence Herniated nucleus pulposus, cervical Hypertension, essential Muscle spasm Failed back syndrome DJD (degenerative joint disease) of thoracic spine Radiculitis of right cervical region Chronic GERD LFTs abnormal Surgical History History of liver biopsy Hx of laser iridotomy H/O cataract extraction History of cervical spinal surgery History of lumbar surgery History of esophagogastroduodenoscopy History of colonoscopy History of esophagogastroduodenoscopy History of hysterectomy with oophorectomy Hx of cholecystectomy Family History Father No problems noted. Mother Stomach cancer Social History Housing: House Are you a primary intensive care ambulance paramedic to a significant other at home: No Do you presently have visiting nurse or other home services: No Alcohol intake: never Patient Tobacco Use Status: Never used Tobacco e-Cigarette/Vaping Use: Never Used Second Hand Smoke Exposure: No service: No Current occupational status: disabled Cognitive needs: No Hearing needs: No Vision needs: Yes Assessment & Plan Assessment & Plan (1) Diabetes 1.5, managed as type 1: Comment: taking lantus insulin Code(s): E13.9 - Other specified diabetes mellitus without complications Plan: Learning objectives: The patient was provided with verbal and written education on the following topics as outlined below. The patient met all learning objectives and was able to verbalize understanding and provide teach back of education topics discussed . The patient was provided with the opportunity to ask questions and all questions were answered. Patient Assessment Assess patient education level/literacy/barriers, patient's last A1c 7.8% on 03/25/25. Patient reports she started Mounjaro approximately 3 weeks ago, after after 1st dose she had severe diarrhea, after 2nd dose she was vomiting and had diarrhea. Reports she was admitted to the hospital for approximately 2-3 days. Has stopped Mounjaro and is not willing to restart Asked to today's visit if she could have a prescription for Rybelsus, reports her daughter who was in [place] gave her a sample and she has been taking it and she believes it is working well. Patient is also reports taking Lantus daily, however prescription reads Toujeo 34 units. At this time she is only taking between 12-24 units daily We discussed advantages of CGM, patient is not interested in starting CGM at this time Patient questions/concerns What is Diabetes? Pathophysiology How the body produces and uses insulin Identify type of DM Risk factors Signs of Diabetes Brief overview of Diabetes Management Monitoring blood sugar Following a meal plan Regular exercise Maintaining a healthy weight Taking medication as needed Members of the care team (PCP, RN, MA, RD, CDE, office analyst) Blood glucose monitoring When/how often to test Target blood sugar ranges Patient did not bring meter to today's visit reports she tests 2 times daily Introduction to Nutrition Importance of healthy diet in managing DM Diet is personalized to individual preference Review patient?s regular diet/food preferences Who prepares meals/does food shopping/ Dining out?/ Barriers? How diet effects glucose Eating 3 balanced meals a day with small, healthy snacks between meals Review food groups Carbohydrates: What is a carbohydrate/Which food/food groups are considered carbohydrates Effect of carbohydrates on blood glucose Portion sizes Reading food labels Basic carb counting (if applicable per nursing assessment) Plate method Meal planning Recommendations: Follow plate method, consistent carbs and read nutritional labels. Educational Materials: The patient was provided with the following written educational materials: Planning Healthy Meals Handout Patient Response to instructions: Comprehension of Instructions: Fair Readiness to make changes: Contemplation How confident they feel about making changes: Positive Portions of this note were created using voice recognition software, please excuse any words or phrases that may have been misinterpreted. Patient Instructions: Include regular daily activity. ADA recommends 30 minutes of exercise 5 days a week. Weight loss talk to PCP or Nursing Home Assistant before starting new plan. Test blood sugar as directed; Fasting and 2hpp largest meal. Watch trends in results. Utilize results and to assess how food, physical activity and medications affect blood sugar results. Bring glucometer or CGM to next visit. Be knowledgeable about diabetes medication, its action, side effects, efficacy, toxicity, prescribed dosage, appropriate timing and frequency of administration, effect of missed and delayed doses and instructions for storage, travel and safety. Problem solving techniques to monitor hypo/hyperglycemia episodes and treatments. Reduce risk reduction behaviors, smoking cessation, regular eye, foot and dental examinations. Coding Level of Care Code Est Pt Level 1 (51027) Diagnoses Diabetes 1.5, managed as type 1 E13.9
== END 2025-05-04 13:05 | disposition home or self-care (01) ==
LOC: HO.ENCR 12:21
PROVIDERS: PCP Internal Medicine; Visit Provider Registered Nurse Diabetes Educator
DX: E13.9 Other specified diabetes mellitus without complications (principal)

== ENCOUNTER → 2025-05-04 12:20 | Outpatient (BNVA) | payer MEDICARE, MEDICAID, SELFPAY | PROVIDERS: PCP Internal Medicine; Visit Provider Registered Nurse Diabetes Educator | DX: Z13.9 Encounter for screening, unspecified (principal); Z79.4 Long term (current) use of insulin | CPT/HCPCS: 99211 ==

== ENCOUNTER 2025-05-21 09:41 | Outpatient (AMB) | payer MEDICARE, MEDICAID, SELFPAY ==
--- NOTE | 2025-05-21 09:46 | AM.OFFVISNUR ---
Intake Visit Reasons: H pylori breath test Allergies duloxetine (From Cymbalta) Allergy (Intermediate, Verified 05/21/25 09:46) Gastrointestinal Upset gabapentin Allergy (Intermediate, Verified 05/21/25 09:46) Gastrointestinal Upset milnacipran (From Savella) Allergy (Intermediate, Verified 05/21/25 09:46) Gastrointestinal Upset naloxegol (Movantik) Allergy (Intermediate, Verified 05/21/25 09:46) Gastrointestinal Upset pregabalin (From Lyrica) Allergy (Intermediate, Verified 05/21/25 09:46) Gastrointestinal Upset acetaminophen (From Tylenol) Adverse Reaction (Intermediate, Verified 05/21/25 09:46) Unknown NSAIDS (Non-Steroidal Anti-Inflamma Adverse Reaction (Intermediate, Verified 05/21/25 09:46) Unknown Nursing Note Patient presents for collection of?H Pylori?breath test. Patient has been fasting for 1 hour (nothing to eat, drink, no chewing gum or smoking) has not taken any antacid medication for at least 2 weeks and has no allergies to artificial sweeteners.?? Assessment & Plan Assessment & Plan (1) Gastritis: Code(s): K29.70 - Gastritis, unspecified, without bleeding Category: Medical Qualifiers: Gastritis type: other gastritis Chronicity: acute Gastritis bleeding: without bleeding Qualified Code(s): K29.00 - Acute gastritis without bleeding Plan Patient presents for collection of?H Pylori?breath test. Patient has been fasting for 1 hour (nothing to eat, drink, no chewing gum or smoking) has not taken any antacid medication for at least 2 weeks and has no allergies to artificial sweeteners.???This test checks for an overgrowth of bacteria in your stomach. We all have bacteria but some may have more than others. It is treatable. if the test comes back negative there is nothing else to do. If the test result is positive we will treat you with 2 antibiotics and a medication to decrease the acid in your stomach (PPI) for 2 weeks. Two weeks after you have completed the treatment we will retest you to make sure the overgrowth has resolved. Patient Instructions: Process for specimen collection and reason for testing was explained to the patient. Specimen collection. Patient instructed to take a deep breath and then exhale into the blue bag, filling it up as much as possible. Patient instructed to drink a mixture of water and the artificial sweetener with a straw. A 15 minute wait period was observed. Patient instructed to take a deep breath and then exhale into the pink bag, filling it up as much as possible.?? Coding Level of Care Code Established Pt Est Pt Level 1 (20912) Patient Type Established Diagnoses Other acute gastritis without hemorrhage K29.00 Gastritis type: other gastritis Chronicity: acute Gastritis bleeding: without bleeding
== END 2025-05-21 10:37 | disposition home or self-care (01) ==
LOC: HO.HGI 09:42
PROVIDERS: PCP Internal Medicine; Visit Provider Internal Medicine Gastroenterology
DX: K29.00 Acute gastritis without bleeding (principal)

== ENCOUNTER → 2025-05-21 09:41 | Outpatient (BNVA) | payer MEDICARE, MEDICAID, SELFPAY | PROVIDERS: PCP Internal Medicine; Visit Provider Internal Medicine Gastroenterology | DX: K29.00 Acute gastritis without bleeding (principal); R10.84 Generalized abdominal pain | CPT/HCPCS: 99211 ==

== ENCOUNTER 2025-05-24 15:46 | Outpatient (REF) | payer MEDICARE, MEDICAID, SELFPAY | END 2025-05-24 15:47 | disposition home or self-care (01) | LOC: HO.LNP 15:46 | PROVIDERS: Visit Provider Internal Medicine Gastroenterology | DX: K29.00 Acute gastritis without bleeding (principal); R10.84 Generalized abdominal pain | CPT/HCPCS: 83013 ==

== ENCOUNTER 2025-06-01 11:53 | Outpatient (AMB) | payer MEDICARE, MEDICAID, SELFPAY ==
[2025-06-01 11:57] VITALS: BP 130/68; PULSE 98; O2SAT 98; BMI 26.9
--- NOTE | 2025-06-01 11:57 | A.OFFPC_ITS ---
Vital Signs 06/01/25 11:57 Height 5 ft 3 in Weight 152 lb BMI 26.9 BP 130/68 Blood Pressure Location Lt brachial Position Sitting Pulse 98 Pulse Source Pulse Oximeter Pulse Oximetry (%) 98 Intake Visit Reasons: 1 month f/up Allergies duloxetine (From Cymbalta) Allergy (Intermediate, Verified 06/01/25 11:57) Gastrointestinal Upset gabapentin Allergy (Intermediate, Verified 06/01/25 11:57) Gastrointestinal Upset milnacipran (From Savella) Allergy (Intermediate, Verified 06/01/25 11:57) Gastrointestinal Upset naloxegol (Movantik) Allergy (Intermediate, Verified 06/01/25 11:57) Gastrointestinal Upset pregabalin (From Lyrica) Allergy (Intermediate, Verified 06/01/25 11:57) Gastrointestinal Upset acetaminophen (From Tylenol) Adverse Reaction (Intermediate, Verified 06/01/25 11:57) Unknown NSAIDS (Non-Steroidal Anti-Inflamma Adverse Reaction (Intermediate, Verified 06/01/25 11:57) Unknown Medication List - Last Reconciled 06/01/25 by Tram Darby MD Accu-Chek Guide test strips (blood sugar diagnostic) Test blood sugar 3 times per day NS albuterol sulfate 90 mcg/actuation 1 - 2 puffs PO Q4H PRN amlodipine 10 mg PO DAILY 90 days baclofen 10 mg PO BEDTIME blood-glucose meter (Accu-Chek Guide Me Glucose Meter) test blood sugar three times per day dicyclomine 10 mg PO TID PRN famotidine 40 mg PO BEDTIME fentanyl 50 mcg/hr 1 patch transdermal Q48H 30 days FreeStyle Lite Strips (blood sugar diagnostic) patient to check blood sugar 3 times daily NS insulin aspart U-100 (Novolog U-100 Insulin aspart) See Protocol units subcut TIDAC insulin glargine U-300 conc (Toujeo SoloStar U-300 Insulin) 34 units (0.1133 mL) subcut DAILY 90 days lancets (Accu-Chek Softclix Lancets) Test blood sugar 3 times per day latanoprost 0.005% 1 drp ophthalmic (eye) BEDTIME lisinopril 40 mg PO DAILY 90 days omeprazole 40 mg PO DAILY ondansetron HCl 4 mg PO ONCE PRN 30 days oxycodone 5 mg PO DAILY PRN pen needle, diabetic qd pen needle, diabetic qd pen needle, diabetic qd semaglutide (Rybelsus) 3 mg PO DAILY 30 days sennosides-docusate sodium 8.6-50 mg (Senokot-S) 1 tab-cap PO BEDTIME 90 days sucralfate (Carafate) 1 g PO BID 30 days Tobacco use date assessed: 04/30/25 Fall risk assessment: No Falls in past year Last assessed Fall Risk: 06/01/25 Dental Screening Dental Screen Date: 04/30/25 HPI HPI Comments History of Present Illness Details History of Present Illness The patient is a 69 year old individual presenting for renewal of a pain contract and evaluation of knee pain. Knee Pain: - The patient reports new, bad pain in t he knees, which is worse today, particularly in the right knee. - The patient experiences a sensation of swelling in the left knee, although no objective swelling in either knee was noted on examination. - The pain is slightly alleviated by hea t. - The patient has tried pxck-wxc-wjizowc creams and patches without relief. - The patient has not seen an catalog specialist for this issue. - The patient reports having arthritis everywhere and is active with gardening. Chronic Pain Management/ failed back syndrom - The patient presented for renewal of a pain contract, which was last signed in January of the previous year. - The patient's medication regimen inclu pravin a fentanyl patch. - The patient previously took oxycodone for severe pain due to a pharmacy issue and has some remaining at home. Diabetes Mellitus: - The patient is under the care of an en docrinologist for diabetes and has an upcoming appointment on the of the next month. - Home blood glucose monitoring showed a level of 107 mg/dL this morning and pre-bedtime levels of 171-179 mg/dL. - Labs from April showed a glucose lev el of 103 mg/dL. - The patient declined a new injection r ecommended by the disposition clerk due to a prior adverse experience with Mounjaro. - The patient is not taking oral semaglu tide 3 mg, which was prescribed in April, due to suspected insurance coverage issues. Anemia: - Labs from April showed the patient i s slightly anemic with a hemoglobin of 11.9, which is considered stable. Medical History: - Arthritis - Chronic pain - Diabetes mellitus - Anemia - Adverse reaction to Mounjaro causing s tomach problems PFSH Medical History Diabetes 1.5, managed as type 1 PUD (peptic ulcer disease) Asthma Hx of irritable bowel syndrome Pain management Narcotic dependence Herniated nucleus pulposus, cervical Hypertension, essential Muscle spasm Failed back syndrome DJD (degenerative joint disease) of thoracic spine Radiculitis of right cervical region Chronic GERD LFTs abnormal Surgical History History of liver biopsy Hx of laser iridotomy H/O cataract extraction History of cervical spinal surgery History of lumbar surgery History of esophagogastroduodenoscopy History of colonoscopy History of esophagogastroduodenoscopy History of hysterectomy with oophorectomy Hx of cholecystectomy Family History Father No problems noted. Mother Stomach cancer Social History Housing: House Are you a primary home health care provider to a significant other at home: No Do you presently have visiting nurse or other home services: No Alcohol intake: never Patient Tobacco Use Status: Never used Tobacco e-Cigarette/Vaping Use: Never Used Second Hand Smoke Exposure: No service: No Current occupational status: disabled Cognitive needs: No Hearing needs: No Vision needs: Yes Questionnaire Thrive Questionnaire Date Thrive assessed: 09/30/24 I am a: Patient SACHIN-7 AMB Questionnaire SACHIN-7 Date SACHIN - 7 assessed: 01/29/25 Source: Developed by Drs. Tommy Graham, Marnie Ford, Sebastien Vaughn and colleagues, with an educational mayito from [employer]. Review of Systems Narrative Review of Systems - General: No fever no chills - Neurological: No headaches no dizziness - Ear nose throat: No sore throat no hearing difficulty no ear pain - Cardiovascular: No syncope, no chest pain, no palpitations - Gastrointestinal: No nausea vomiting or diarrhea - Endocrine: No polyuria polydipsia no heat intolerance - Genitourinary: No dysuria , no blood in urine Physical exam (Primary Care) Vital Signs: Last Vital Signs Pulse 98 06/01/25 11:57 BP 130/68 06/01/25 11:57 Pulse Ox 98 06/01/25 11:57 BMI result Body Mass Index 26.9 Tobacco/Smoking Status: Tobacco use Status Tobacco use date assessed 04/30/25 06/01/25 12:01 Patient Tobacco Use Status Never used Tobacco 06/01/25 12:01 e-Cigarette/Vaping Use Never Used 06/01/25 12:01 Thrive Assessment: Date of Thrive Assessment Date Thrive assessed 09/30/24 06/01/25 12:01 Narrative Physical Exam General: No acute distress HEENT: No acute findings Neck: Supple Respiratory system: Able to talk in full sentences, no audible wheeze Cardiovascular: S1-S2 regular in rate and rhythm Gastrointestinal: Pain is better today Extremities: Right knee pain, tender medically, no swelling , ROM intact [employer]: Alert awake oriented x3 motor intact Skin: Normal turgor Coding Level of Care Code Est Pt Level 3 (03406) Diagnoses Acute pain of right knee M25.561 Chronicity: acute Hypertension, essential I10 Diabetes 1.5, managed as type 1 E13.9 Failed back syndrome M96.1 HNP (herniated nucleus pulposus), lumbar M51.26 Pain management R52 Narcotic dependence F11.20 Assessment & Plan Assessment & Plan (1) Knee pain, right: Code(s): M25.561 - Pain in right knee Category: Medical Qualifiers: Chronicity: acute Qualified Code(s): M25.561 - Pain in right knee (2) Hypertension, essential: Code(s): I10 - Essential (primary) hypertension Category: Medical (3) Diabetes 1.5, managed as type 1: Comment: taking lantus insulin Code(s): E13.9 - Other specified diabetes mellitus without complications Category: Medical (4) Failed back syndrome: Comment: uses fentanyl patch & oxycodone Code(s): M96.1 - Postlaminectomy syndrome, not elsewhere classified Category: Medical (5) HNP (herniated nucleus pulposus), lumbar: Code(s): M51.26 - Other intervertebral disc displacement, lumbar region Category: Medical (6) Pain management: Code(s): R52 - Pain, unspecified Category: Medical (7) Narcotic dependence: Code(s): F11.20 - Opioid dependence, uncomplicated Category: Medical Plan Problem List - Chronic pain syndrome - Osteoarthritis of the knee - Diabetes mellitus - Anemia - Preventative care: Medicare annual wellness visit Plan - The patient will sign to renew the pain contract during this visit. - An x-ray of the knee will be ordered to evaluate for arthritis. - A referral to an catalog specialist will be made for further evaluation and management of the knee pain. - A prescription for the fentanyl patch will be sent to the pharmacy. - The patient will continue to be managed by an disposition clerk for diabetes, with an upcoming appointment on the of the next month. - The patient is advised to book a follow-up appointment in one month. - The patient was advised to check with insurance regarding coverage for a physical exam and to schedule one if due, clarifying that the appointment in November is for a Medicare Wellness visit. Orders: Orders XR knee RT 2V Today M25.561 - Pain in right knee Referrals Orthopedics Referral M25.561 - Pain in right knee Medications: Refilled fentanyl 50 mcg/hr 1 patch transdermal Q48H 15 ea 0RF 30 days F11.20 - Opioid dependence, uncomplicated, M50.20 - Other cervical disc displacement, unspecified cervical region, M96.1 - Postlaminectomy syndrome, not elsewhere classified, R52 - Pain, unspecified
--- OUTSIDE RECORDS SUMMARY | 2025-06-01 15:40 | XMS_ITS | Patient Health Record ---
Author Organization [facility] Address [address] [place] [address] Care Team Providers Care Windows Systems Administrator Name Role Phone Wilner GONSALES, Asma Primary Care Provider Tommy Almonte [phone] Allergies Allergen (clinical drug ingredient) Drug/Non Drug Allergy documented on EMR Reaction Allergy Type Onset Date Status naloxegol Movantik Unknown Drug Allergy Active Results Component Value Reference Range Flag Notes Liver Panel Reviewed date:2024 10:00:04 PM Interpretation: Performing Lab:[facility], [address] [place] [phone] Notes/Report: Bilirubin Total 0.7 0.0-1.0 mg/dL N Bilirubin Direct 0.3 0.0-0.5 mg/dL N Aspartate Amino Transferase 110 5-31 U/L H Alanine Aminotransferase 189 0-31 U/L H Total Protein 8.2 6.5-8.0 g/dL H Albumin Level 4.1 3.5-5.0 g/dL N Alkaline Phosphatase 406 39-117 U/L H Liver Fibrosis Pnl Reviewed date:11/30/2024 06:17:11 PM Interpretation: Performing Lab:[facility], [address] [place] [phone] Notes/Report: Liver Fibrosis Score 0.35 Liver Fibrosis [...] a>0.62 and a<=1.00 : A3 (severe activity) VCJ-Cpyut-3-Macroglobulin 164 106-279 mg/dL FIB-Haptoglobin 170 43-212 mg/dL FIB-Apolipoprotein A1 227 101-198 mg/dL A FIB-Total Bilirubin 0.6 0.2-1.2 mg/dL FIB-GGT 1488 3-65 U/L A FIB-ALT 143 6-29 U/L A Reference ID [id number] Footnote SEE NOTE The reliability of results is dependent on compliance with the preanalytical and analytical conditions recommended by [employer]. The tests have to be deferred for: [...] The performance characteristics have been determined by [facility]. It has not been cleared or approved by the U.S. Food and Drug Administration. Performance characteristics refer to the analytical performance of the test. The Clearing, the associated logo, [employer] and all associated [employer] d[employer] are the registered trademarks of [employer]. All third libertarian dong - (R) and (TM) - are the property of their respective owners. (C) 6664-4995 [employer]. All rights reserved. THIS TEST WAS PERFORMED AT: [facility] [facility] [address] [place] [address] CRISTINA GIORDANO MD,PHD,PITA Pathology Reviewed date:04/29/2025 11:45:09 AM Interpretation: Performing Lab:[address] [phone] Notes/Report: Liver Panel Reviewed date:04/29/2025 11:45:28 AM Interpretation: Performing Lab:[address] [address] Notes/Report: Bilirubin Total 0.4 0.0-1.0 mg/dL N Bilirubin Direct 0.2 0.0-0.5 mg/dL N Aspartate Amino Transferase 48 5-31 U/L H Alanine Aminotransferase 111 0-31 U/L H Total Protein 8.3 6.5-8.0 g/dL H Albumin Level 4.5 3.5-5.0 g/dL N Alkaline Phosphatase 378 39-117 U/L H US biopsy liver Reviewed date:12/03/2024 12:41:31 AM Interpretation: Performing Lab: Notes/Report: [address] [address] Ultrasound Report Signed Patient: Syeda Doll MR#: [id number] : 1955 Acct:[id number] Age/Sex: 68 / F ADM Date: 11/25/24 Loc: .[facility] Attending Dr: Tommy Roberts MD Ordering Physician: Tommy Roberts MD Date of Service: 11/25/24 Procedure(s): US biopsy liver Accession Number(s): [id number] cc: Tram Darby MD; Tommy Roberts MD [...] Branden Pimentel MD 11/25/2024 04:26 PM EDT RP Dictated By: Branden Pimentel MD Signed By: <Electronically signed by Branden Pimentel MD in OV> 11/25/24 1626 DD/ 1500 TD/TT: 11/25/24 1545 Ortho Rn: Type and Screen Reviewed date:2024 09:08:19 AM Interpretation: Performing Lab:[address] [phone] Notes/Report: Blood Type OP Antibody Screen NEGATIVE Glucose, Whole Blood Reviewed date:2024 09:08:54 AM Interpretation: Performing Lab:[address] [address] Notes/Report: Glucose, Whole Blood 123 60-115 mg/dL H CT TER #: [id number] Basic Metabolic Panel Reviewed date:2024 09:08:12 AM Interpretation: Performing Lab:[address] [address] Notes/Report: Sodium 140 135-145 mmol/L N Potassium 5.3 3.3-5.1 mmol/L H Mild Hemol ysis.Interpret result with caution Chloride 101 96-108 mmol/L N Carbon Dioxide 27 22-29 mmol/L N Anion Gap 17 12-20 N Blood Urea Nitrogen 21 9-16 mg/dL H Creatinine 0.97 0.5-1.4 mg/dL N Creatinine Clr Calc Pharmacy 52.4 Provided height [...] 15 mL/min/1.73m2 Glucose Random 129 60-115 mg/dL H Calcium 10.0 8.4-10.2 mg/dL N Partial Thromboplastin Time Reviewed date:2024 09:08:25 AM Interpretation: Performing Lab:[facility], [address] [place] [phone] Notes/Report: Partial Thromboplastin Time 32.7 26.0-36.8 SEC N For information regarding the monitoring of direct thrombin inhibitors, please refer to Pharmacy. Prothrombin Time INR Reviewed date:2024 09:08:33 AM Interpretation: Performing Lab:[facility], [address] [place] [phone] Notes/Report: Prothrombin Time 10.6 10.9-12.4 SEC L INTERNATIONAL NORM RATIO 0.9 0.9-1.1 N INTERNATIONAL NORMALIZED RATIO (INR) REFERENCE RANGES Reference [...] mechanical prosthetic heart valves: 2.5 - 3.5 Complete Blood Count Auto Di ff Reviewed date:2024 09:08:47 AM Interpretation: Performing Lab:[facility], [address] [place] [phone] Notes/Report: White Blood Count 12.3 4.8-10.8 X10*3/uL H Red Blood Count 4.42 4.20-5.50 X10*6/uL N Hemoglobin 13.3 12.0-16.0 g/dl N Hematocrit 39.9 37.0-47.0 % N Mean Corpuscular Volume 90.3 80.0-98.0 fL N Mean Corpuscular Hemoglobin 30.1 27.0-33.0 pg N Mean Corpuscular HGB Conc 33.3 31.0-35.0 g/dl N Red Cell Distribution Width 13.9 11.0-16.0 % N Platelet Count 204 160-400 X10*3/uL Mean Platelet Volume 12.0 9.4-12.3 fL N Neutrophils Percent Auto 73.3 45-73 % H Imm Gran Pct Auto 0.5 0.0-0.4 % H Lymphocytes Percent Auto 17.5 20-40 % L Monocytes Percent Auto 7.3 2-11 % N Eosinophils Percent Auto 1.0 0-4 % N Basophils Percent Auto 0.4 0-2 % N NRBC Pct Auto 0.0 0.0-0.2 /100WBC N Neutrophils Absolute Auto 9.0 2.0-8.3 x10*3/uL H Imm Gran Abs Auto 0.06 0.00-0.03 X10*3/uL H Lymphocytes Absolute Auto 2.2 1.2-4.9 X10*3/uL N Monocytes Absolute Auto 0.9 0.1-1.2 X10*3/uL N Eosinophils Absolute Auto 0.1 0.0-0.4 X10*3/uL N Basophils Absolute Auto 0.1 0.0-0.2 X10*3/uL N NRBC Abs Auto 0.000 0.0-0.012 X10*3/uL N Partial Thromboplastin Time Reviewed date:11/23/2024 06:54:09 PM Interpretation: Performing Lab:[facility], [address] [place] [phone] Notes/Report: Partial Thromboplastin Time 32.4 26.0-36.8 SEC N For information regarding the monitoring of direct thrombin inhibitors, please refer to Pharmacy. Prothrombin Time INR Reviewed date:11/23/2024 06:54:18 PM Interpretation: Performing Lab:[facility], [address] [place] [phone] Notes/Report: Prothrombin Time 10.7 10.9-12.4 SEC L INTERNATIONAL NORM RATIO 0.9 0.9-1.1 N INTERNATIONAL NORMALIZED RATIO (INR) REFERENCE RANGES Reference [...] mechanical prosthetic heart valves: 2.5 - 3.5 Complete Blood Count Auto Di ff Reviewed date:11/23/2024 06:53:58 PM Interpretation: Performing Lab:[facility], [address] [place] [phone] Notes/Report: White Blood Count 8.3 4.8-10.8 X10*3/uL N Red Blood Count 4.37 4.20-5.50 X10*6/uL N Hemoglobin 13.0 12.0-16.0 g/dl N Hematocrit 40.1 37.0-47.0 % N Mean Corpuscular Volume 91.8 80.0-98.0 fL N Mean Corpuscular Hemoglobin 29.7 27.0-33.0 pg N Mean Corpuscular HGB Conc 32.4 31.0-35.0 g/dl N Red Cell Distribution Width 14.0 11.0-16.0 % N Platelet Count 106 160-400 X10*3/uL L Mean Platelet Volume 12.9 9.4-12.3 fL H Neutrophils Percent Auto 74.1 45-73 % H Imm Gran Pct Auto 0.4 0.0-0.4 % N Lymphocytes Percent Auto 18.0 20-40 % L Monocytes Percent Auto 6.5 2-11 % N Eosinophils Percent Auto 0.6 0-4 % N Basophils Percent Auto 0.4 0-2 % N NRBC Pct Auto 0.0 0.0-0.2 /100WBC N Neutrophils Absolute Auto 6.2 2.0-8.3 x10*3/uL N Imm Gran Abs Auto 0.03 0.00-0.03 X10*3/uL N Lymphocytes Absolute Auto 1.5 1.2-4.9 X10*3/uL N Monocytes Absolute Auto 0.5 0.1-1.2 X10*3/uL N Eosinophils Absolute Auto 0.1 0.0-0.4 X10*3/uL N Basophils Absolute Auto 0.0 0.0-0.2 X10*3/uL N NRBC Abs Auto 0.000 0.0-0.012 X10*3/uL N Reason For Referral No Information Medications Medication SIG (Take, Route, Frequency, Duration) Notes Start Date End Date Status Famotidine 20 MG Tablet TAKE 1 TABLET BY MOUTH EVERYDAY AT BEDTIME Orally Twice a day Active tiZANidine HCl Activ e BD Pen Needle Mini U/F Active Ibuprofen PRN Active Latanoprost Active MiraLax 17 GM/SCOOP Powder 1 capful from a 238gm bottle to the measured line in 8 ounces of water Orally Twice a day; Duration: 30 days 08/16/2022 Active Mounjaro 2.5 MG/0.5ML Solution Auto-injector as directed Subcutaneous Active Metamucil 0.52 GM Capsule 2 capsules with 8 ounces of liquid Orally Once or twice a day for constipation; Duration: 30 days 08/16/2022 Active amLODIPine Besylate 10 MG Tablet 1 tablet Orally Once a day Active Dicyclomine HCl 10 MG Capsule TAKE 1-2 CAPS EVERY 6 HOURS NEEDED ABDOMINAL CRAMPS/BLOATING/DISCOM FORT; Duration: 90 Active fentaNYL 50 MCG/HR Patch 72 Hour (Schedule II Drug) APPLY 1 PATCH TO THE SKIN AND CHANGE EVERY OTHER DAY Transdermal; Duration: 30 Active Ursodiol 500 MG Tablet 1 tablet Orally T wice a day; Duration: 30 days 12/04/2024 Not-Taking/PRN Lisinopril 40 MG Tablet TAKE 1 TABLET BY MOUTH EVERY DAY Orally Once a day Active Omeprazole 20 MG Capsule Delayed Release TAKE 1 CAPSULE BY MOUTH EVERY DAY; Duration: 90 Not-Taking/PRN Lantus 100 UNIT/ML Solution 30 Subcutaneous QHS Active Immunizations Vaccine Route Administration Date Status Comme nts Influenza Unknown 06/20/2018 Administered Influenza Unknown 10/03/2018 Refused Influenza Unknown 04/20/2020 Refused Influenza Unknown 11/15/2023 Refused Influenza Unknown 04/14/2025 Refused Social History Tobacco Use: Social History Observation Description Date Details (start date - stop date) Never Smoker NA - NA Social History Drugs/Alcohol: Social Info Question Answer Notes Alcohol Screen Did you have a drink containing alcohol in the past year? No Points 0 Interpretation Negative Tobacco Use: Social Info Question Answer Notes Tobacco Use/Smoking Patient is a nonsmoker Additional Details Category Social Info Options Details Miscellaneous: Marital status: Occupation: AT HOME Section Notes: Nonsmoker; no sig alcohol Nonsmoker; [...] Status Risk Notes Problem Colon cancer screening (313091793) Colon cancer screening (Z12.11) Active confirmed Problem Screening for malignant neoplasm of colon (214638899) Encounter for screening for malignant neoplasm of colon (Z12.11) Active confirmed Problem History of adenomatous polyp of colon (920974550) History of adenomatous polyp of colon (Z86.010) Active confirmed Problem Constipation (72826743) Constipation (K59.00) Active confirmed Problem Abdominal bloating (011732420) Abdominal bloating (R14.0) Active confirmed Problem Early satiety (159812370) Early satiety (R68.81) Active confirmed Problem Elevated liver enzymes level (380478589) Elevated liver function tests (R79.89) Active confirmed Problem Elevated liver enzymes level (379983042) Elevated liver enzymes (R74.8) Active confirmed Problem Fatty liver (184926937) Fatty liver (K76.0) Active confirmed Problem Gastroesophageal reflux disease (800587386) Gastroesophageal reflux disease, esophagitis presence not specified (K21.9) Active confirmed Problem Serum alpha-fetoprotein level elevated (437437382) Elevated alpha fetoprotein (R77.2) Active confirmed Problem Generalized abdominal pain (810393526) Abdominal pain, generalized (R10.84) Active confirmed Problem Alkaline phosphatase raised (024017285) Elevated alkaline phosphatase level (R74.8) Active confirmed Problem Irritable bowel syndrome (57900357) Irritable bowel syndrome, unspecified type (K58.9) Active confirmed Problem Right upper quadrant pain (053209381) Abdominal pain, RUQ (right upper quadrant) (R10.11) Active confirmed Problem Hepatic fibrosis (disorder) (09965704) Liver fibrosis (K74.00) Active confirmed Problem Abnormal findings diagnostic imaging of liver and biliary tract (433425486) Abnormal ultrasound of biliary tract (R93.2) Active confirmed Vital Signs Temperature 98.9 degrees Fahrenheit 04/14/2025 Blood pressure diastolic 01 mm Hg 04/14/2025 Height 63 in 04/14/2025 Blood pressure systolic 001 mm Hg 04/14/2025 Weight 159.4 lbs 04/14/2025 BMI 28.23 kg/m2 04/14/2025 Encounters Encounter Location Date Provider Diagnosis [facility] [address] [place] [phone] 11/13/2024 Tommy Roberts Elevated liver enzymes R74.8 and Fatty liver K76.0 [facility] [address] [place] [phone] 04/14/2025 Tommy Roberts Liver fibrosis K74.00 ; Elevated liver function tests R79.89 ; Colon cancer screening Z12.11 and Fatty liver K76.0 [facility] [address] [place] [phone] 11/16/2024 Tommy Roberts [facility] [address] [place] [phone] 12/02/2024 Tommy Roberts Elevated liver function tests [...] keep you advised of her progress.. 04/14/2025 Liver fibrosis (ICD-10 - K74.00) Overall, [...] 12/02/2024 Fatty liver (ICD-10 - K76.0) 04/14/2025 Elevated [...] to keep you advised of her progress. 11/13/2024 Fatty liver (ICD-10 - K76.0) You [...] BUN 09/06/2023 LIVER PROFILE 04/14/2025 LIVER PROFILE 07/03/2018 LIVER PROFILE 11/13/2024 LIVER PROFILE 12/02/2024 LIVER PROFILE 10/07/2019 LIVER PROFILE 08/06/2023 LIVER PROFILE 04/20/2020 LIVER PROFILE 10/11/2020 LIVER PROFILE 11/15/2023 AMYLASE [...] Provider Name:Tommy Roberts , 10/13/2025 01:20:00 PM, [address], [address], [place], [address], Insurance Providers Payer Name Payer Address Payer Phone Subscriber Number Group Number Insured Name Patient Relationship to Insured Coverage Start Date Coverage End Date MEDICARE OF [place] [address] [place] [id number] SYEDA DOLL Self - patient is the insured 0 [employer] [place] [address] [place] [address] [id number] SYEDA DOLL Self - patient is the insured Medical (General) History Medical History History ICD Code IDDM Hypertension Denies PR,CVA,Lung disease,renal disease Neg. colonoscopy in 2004 wit [...] her elevated LFTs Surgical History Surgery Date(Month/Year) Cholecystectomy > 20 years ago MELONIE Lower back spinal fusion Cervical disc surgery- Dr. Heath 07/2020 Right Cataract
== END 2025-06-01 12:17 | disposition home or self-care (01) ==
LOC: HO.HMCC 11:54
PROVIDERS: PCP Internal Medicine; Visit Provider Internal Medicine
DX: M25.561 Pain in right knee (principal); I10 Essential (primary) hypertension; E13.9 Other specified diabetes mellitus without complications; M96.1 Postlaminectomy syndrome, not elsewhere classified; M51.26 Other intervertebral disc displacement, lumbar region; R52 Pain, unspecified; F11.20 Opioid dependence, uncomplicated

== ENCOUNTER → 2025-06-01 11:53 | Outpatient (BNVA) | payer MEDICARE, MEDICAID, SELFPAY | PROVIDERS: PCP Internal Medicine; Visit Provider Internal Medicine | DX: M25.561 Pain in right knee (principal); I10 Essential (primary) hypertension; E13.9 Other specified diabetes mellitus without complications; M96.1 Postlaminectomy syndrome, not elsewhere classified; M51.26 Other intervertebral disc displacement, lumbar region; F11.20 Opioid dependence, uncomplicated | CPT/HCPCS: 99212 ==

== ENCOUNTER 2025-06-09 14:54 | Outpatient (AMB) | payer MEDICARE, MEDICAID, SELFPAY ==
--- NOTE | 2025-06-09 15:05 | MHC.OFFVIS ---
Intake Visit Reasons: abdominal pain Intake Note: Patient is seen in office for evaluation and treatment of abdominal pain. Pt c/o: onset for few months, admits to nausea, vomit, diarrhea and constipation on and off, pain is usually in the upper abdomen and radiates to the RUQ, has been hospitalized in the past due to this issue, had EGD done and was told she has gastritis and inflammation of the intestines, has been experiencing abdominal pain since last night Senior Hr Generalist Required: No Accompanied by: Self / Same As Patient Allergies duloxetine (From Cymbalta) Allergy (Intermediate, Verified 06/09/25 15:13) Gastrointestinal Upset gabapentin Allergy (Intermediate, Verified 06/09/25 15:13) Gastrointestinal Upset milnacipran (From Savella) Allergy (Intermediate, Verified 06/09/25 15:13) Gastrointestinal Upset naloxegol (Movantik) Allergy (Intermediate, Verified 06/09/25 15:13) Gastrointestinal Upset pregabalin (From Lyrica) Allergy (Intermediate, Verified 06/09/25 15:13) Gastrointestinal Upset acetaminophen (From Tylenol) Adverse Reaction (Intermediate, Verified 06/09/25 15:13) Unknown NSAIDS (Non-Steroidal Anti-Inflamma Adverse Reaction (Intermediate, Verified 06/09/25 15:13) Unknown [facility] Medical History Pain management Hospital discharge follow-up Right lumbar radiculitis Radiculitis of right cervical region Muscle spasm Arthrosis Open fracture of proximal phalanx of right little finger Post-COVID syndrome Foul smelling urine Epigastric burning sensation LFTs abnormal Liver fibrosis LFT elevation Acute sinusitis Right otitis media 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 2 diabetes Lipid disorder Elevated blood pressure reading Essential hypertension Medication side effect Medication management contract signed Diabetes 1.5, managed as type 1 PUD (peptic ulcer disease) Asthma Hx of irritable bowel syndrome Narcotic dependence Herniated nucleus pulposus, cervical Hypertension, essential Failed back syndrome DJD (degenerative joint disease) of thoracic spine Chronic GERD Surgical History History of liver biopsy Hx of laser iridotomy H/O cataract extraction History of cervical spinal surgery History of lumbar surgery History of esophagogastroduodenoscopy History of colonoscopy History of esophagogastroduodenoscopy History of hysterectomy with oophorectomy Hx of cholecystectomy Family History Father No problems noted. Mother Stomach cancer Social History Housing: House Are you a primary healthcare applications analyst to a significant other at home: No Do you presently have visiting nurse or other home services: No Alcohol intake: never Patient Tobacco Use Status: Never used Tobacco e-Cigarette/Vaping Use: Never Used Second Hand Smoke Exposure: No service: No Current occupational status: disabled Cognitive needs: No Hearing needs: No Vision needs: Yes Coding
--- NOTE | 2025-06-09 15:21 | MHC.OFFVIS ---
Intake Visit Reasons: abdominal pain Allergies duloxetine (From Cymbalta) Allergy (Intermediate, Verified 06/09/25 15:13) Gastrointestinal Upset gabapentin Allergy (Intermediate, Verified 06/09/25 15:13) Gastrointestinal Upset milnacipran (From Savella) Allergy (Intermediate, Verified 06/09/25 15:13) Gastrointestinal Upset naloxegol (Movantik) Allergy (Intermediate, Verified 06/09/25 15:13) Gastrointestinal Upset pregabalin (From Lyrica) Allergy (Intermediate, Verified 06/09/25 15:13) Gastrointestinal Upset HPI HPI abdominal pain: Details: 69-YEAR-OLD FEMALE HERE FOR INITIAL EVALUATION of abdominal pain and for abnormal liver function. She is the daughter of 1 of my patients but her primary care provider is Tram Darby. PMX Asthma Diabetes /insulin-dependent Hypertension High cholesterol Cirrhosis Migraines Failed back syndrome Narcotic dependence Herniated disc of the cervical and lumbar spines Cervical radiculopathy Chronic GERD Gastritis Cataracts * SURGICAL HISTORY Cholecystectomy Hysterectomy with oophorectomy Esophagogastroduodenoscopy-2000, 2010 [facility] Colonoscopy-2020 [facility] History of liver biopsy Laser iridotomy Cataract extraction C-spine surgery Lumbar surgery * ALLERGIES Cymbalta Gabapentin Savella Movantik Lyrica * [employer] LABS: Laboratory Tests 06/20/18 01/03/24 01/29/24 12:00 12:08 10:22 WBC RBC Hgb Hct MCV MCH Plt Count Estimated GFR Total Bilirubin 0.7 AST 208 H ALT 191 H Alkaline Phosphatase 370 H Anti-Mitochondrial Ab NEGATIVE Anti-Smooth Muscle Ab <20 Hepatitis A IgM Ab NONREACTIVE Hep Bs Antigen NEGATIVE Hep Bs Antibody NONREACTIVE Hep B Core Total Ab NONREACTIVE Hepatitis C Ab (EIA) NONREACTIVE 04/25/25 04/26/25 06:53 06:37 WBC 5.8 RBC 4.06 L Hgb 11.9 L Hct 36.0 L MCV 88.7 MCH 29.3 Plt Count 173 134 L Estimated GFR > 60 Total Bilirubin AST ALT Alkaline Phosphatase Anti-Mitochondrial Ab Anti-Smooth Muscle Ab Hepatitis A IgM Ab Hep Bs Antigen Hep Bs Antibody Hep B Core Total Ab Hepatitis C Ab (EIA) LIVER BIOPSY 11/26/2024 Received: 11/26/24 Diagnosis Liver, needle core biopsy: Liver parenchyma with focal minimal steatosis, foci of fibrosis with septal bridging (Stage 3) and mild inflammatory activity (Grade 1) (see comment). COMMENT: The etiology of the histologic findings are not clear. The biopsy may not be construction sales representative if taken from the subcapsular area. Clinical correlation is advised. CT ABDOMEN AND PELVIS 04/24/2025 Comparison: 09/25/2023 Findings: The lung bases are clear. Solid organs are within normal limits. There are no abnormal findings in the gallbladder fossa. No renal stones. No bowel obstruction, pneumoperitoneum, or pneumatosis. There is anterior pararenal retroperitoneal edema possibly related to peptic ulcer disease or duodenitis. Pelvic contents unremarkable. Normal appendix. The bones are intact. IMPRESSION: Possible peptic ulcer disease or duodenitis. Clinical follow-up recommended. MRCP 2023 FINDINGS: MR CHOLANGIOPANCREATOGRAPHY: Gallbladder is surgically absent. Bilateral intra hepatic bile ducts are mildly dilated. Common bile duct are normal in size without filling defects. Pancreatic duct is normal in size. LIVER: The liver shows no focal lesion. The calculated hepatic fat percentage is 4.1%, compatible with normal. PANCREAS: No focal pancreatic lesion with abnormal signal can be seen. SPLEEN: Spleen is normal in size without focal lesion. ADRENAL: Bilateral adrenal glands are normal in shape and size. KIDNEYS: Bilateral kidneys are normal in size without focal lesion. L3-L5 bilateral laminectomies, intervertebral spinal fusion, posterior fixation with transpedicular screws and vertical bars are seen. MR/MR abdomen wo/w con IMPRESSION: 1. Unchanged Status post cholecystectomy. 2. Unchanged Mildly dilated bilateral intrahepatic bile ducts. 3. No focal hepatic mass lesion or suspicious observation could be seen. 4. Unchanged status post L3-L5 bilateral laminectomies, intervertebral spinal fusion, posterior fixation. EGD 04/2025-[facility] Findings: Larynx:normal Esophagus: GE junction at 35 cm, diaphragm hiatus at 35 cm, mild esophagitis Stomach: patchy erythema and atrophic mucosa . Biopsies were obtained. Grade 2 flap valve on retroflexed examination of the cardia. Separate bx taken from pylorus which appeared edematous, no ulcers seen Duodenum: Mild bulbar duodenitis, no masses or ulcers seen, bx taken Intervention: Biopsies as noted above, Impression/Findings: gastritis duodenitis PLAN: await bx, if h pylori pos then treat GERD precautions can advance diet and allow home with PPI as she feels improved BIOPSY eceived: 04/26/25 Diagnosis A. Duodenum, biopsy: Duodenal mucosa with partially denuded surface epithelium; otherwise within normal limits. B. Duodenum, bulb, biopsy: Duodenal mucosa with partially denuded surface epithelium; otherwise within normal limits. C. Stomach, pylorus, biopsy: Pyloric-type mucosa with mild chronic inactive inflammation; no Helicobacter organism seen. D. Stomach, random, biopsy: Oxyntic mucosa with mild chronic inactive inflammation; no Helicobacter organisms seen. CORRESPONDENCE On 04/29/25 @ 13:45 Narinder Stauffer Wrote To Shabnam Grier Pt scheduled on 07/23/24. On 04/20/25 @ 11:49 Shabnam Grier Wrote To Narinder Stauffer This is the mother of one of my pts and she wants to come and see me for her liver problems. Please book her, as her PCP is in our system. [facility]'S VISIT [facility] Medical History Pain management Hospital discharge follow-up Right lumbar radiculitis Radiculitis of right cervical region Muscle spasm Arthrosis Open fracture of proximal phalanx of right little finger Post-COVID syndrome Foul smelling urine Epigastric burning sensation LFTs abnormal Liver fibrosis LFT elevation Acute sinusitis Right otitis media 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 2 diabetes Lipid disorder Elevated blood pressure reading Essential hypertension Medication side effect Medication management contract signed Diabetes 1.5, managed as type 1 PUD (peptic ulcer disease) Asthma Hx of irritable bowel syndrome Narcotic dependence Herniated nucleus pulposus, cervical Hypertension, essential Failed back syndrome DJD (degenerative joint disease) of thoracic spine Chronic GERD Surgical History History of liver biopsy Hx of laser iridotomy H/O cataract extraction History of cervical spinal surgery History of lumbar surgery History of esophagogastroduodenoscopy History of colonoscopy History of esophagogastroduodenoscopy History of hysterectomy with oophorectomy Hx of cholecystectomy Family History Father No problems noted. Mother Stomach cancer Social History Housing: House Are you a primary manager medicare marketing to a significant other at home: No Do you presently have visiting nurse or other home services: No Alcohol intake: never Patient Tobacco Use Status: Never used Tobacco e-Cigarette/Vaping Use: Never Used Second Hand Smoke Exposure: No service: No Current occupational status: disabled Cognitive needs: No Hearing needs: No Vision needs: Yes Review of Systems Const Denies fatigue, Denies fever(s), Denies night sweats, Reports poor appetite and Reports weight loss Eyes Details: Glasses Reports requires corrective lenses ENT Reports Normal hearing present, Denies dental pain, Denies dysphagia, Denies hearing loss, Denies mouth pain, Reports neck pain, Denies odynophagia, Denies throat swelling, Denies tongue swelling and Reports other (Dentition adequate) Card Reports no additional complaints Resp Reports no additional complaints GI Details: Reports abdominal pain, Denies melena, Denies bloating, Denies hematochezia, Reports constipation, Denies GI cramping, Denies dysphagia, Denies excessive flatus, Reports early satiety, Reports heartburn, Reports diarrhea (In response to Mounjaro has since resolved), Reports nausea, Denies odynophagia, Reports vomiting and Denies hematemesis Musc Reports back pain, Reports myalgias, Reports arthralgias, Reports neck pain and Reports stiffness Skin/Breast Denies pruritus, Denies lesions, Denies rash and Denies jaundice Neuro Reports Normal hearing present and Denies Abnormal speech present Endo Denies fatigue Aller/Immun Denies throat swelling and Denies tongue swelling Physical Exam Const General: cooperative, no acute distress, well developed and well groomed Nutritional Appearance: average body habitus and well nourished Orientation/consciousness: oriented to person, oriented to place and oriented to time Limitations: No language barrier HEENT Head: Yes normocephalic and Yes atraumatic Eyes General: appearance normal, both eyes and all related structures Pupils: Equal, round and reactive pupils present Neck Neck: Yes normal visual inspection and Yes no lymphadenopathy Thyroid: Thyroid normal Resp Effort & Inspection: normal respiratory effort and able to speak in complete sentences Auscultation: clear to auscultation bilaterally Cardio Rate: regular rate Rhythm: regular rhythm Heart sounds: Normal, physiologic split S2 sound present Peripheral pulses: radial pulses present and posterior tibial pulses present GI Inspection: No distended and No Abdominal panniculus present Palpation (GI): Soft to palpation, Tenderness to palpation present (GI) in the epigastrum and in the RUQ, no guarding, not rigid and No hepatosplenomegaly present Percussion: Yes normal to percussion Auscultation: normal bowel sounds Rectal Exam - Female: deferred Skin General skin exam: no rashes or lesions noted, turgor normal, skin not dry, no jaundice, No spider nevi and no striae Rashes: no rashes Nails: normal Neuro General: oriented to person, oriented to place and oriented to time Cranial nerves: Yes Equal, round and reactive pupils present and Yes Normal hearing present Speech: No Abnormal speech present Extrem General: Yes normal to inspection, No clubbing, No cyanosis and No edema Psych Appearance: grossly normal and well kempt Mental Status: mental status grossly normal Speech and movement: Normal speech and movement present Affect: normal affect Attitude: cooperative Thought process: Normal thought process present and not confabulating Thought content: Normal thought content present Insight: Good insight present (Psych) Judgement: Good judgement present (Psych) Assessment & Plan Assessment & Plan (1) Abdominal pain: Code(s): R10.9 - Unspecified abdominal pain Category: Medical Qualifiers: Abdominal location: generalized Qualified Code(s): R10.84 - Generalized abdominal pain (2) Tubular adenoma of colon: Comment: 11/2020 SCOPE= TA, PATRICK Code(s): D12.6 - Benign neoplasm of colon, unspecified Category: Medical (3) Liver cirrhosis: Code(s): K74.60 - Unspecified cirrhosis of liver Category: Medical Qualifiers: Hepatic cirrhosis type: other cirrhosis Qualified Code(s): K74.69 - Other cirrhosis of liver (4) Chronic GERD: Code(s): K21.9 - Gastro-esophageal reflux disease without esophagitis Category: Medical Plan Subjective Patient presents for evaluation of upper abdominal pain with associated nausea/vomiting and poor appetite. Symptoms escalated after initiation of tirzepatide (Mounjaro): initial dose caused severe epigastric pain radiating slightly to the right with diarrhea that later resolved; retrial two weeks later provoked severe pain and intractable vomiting without diarrhea, prompting hospitalization in April. Prior to Mounjaro, she had intermittent but milder abdominal discomfort. Reports early satiety and lack of hunger for a long time. Denies dysphagia. Bowel habits variable: sometimes daily, sometimes every 3?4 days; stool consistency ranges from hard to soft. MiraLAX provides some benefit; Senna ineffective. Relevant Past Medical, Social, and Family History - Asthma; type 2 diabetes; hypertension (mild); hyperlipidemia; fatty liver disease; migraines; GERD/gastritis; chronic back pain on opioids. - Prior cholecystectomy; hysterectomy; cervical and lumbar spine surgeries; liver biopsy; prior EGDs/colonoscopies (Dr. Patrick); eye laser surgery. - No alcohol use. Discussed that acetaminophen may be used up to 2,000 mg/day given liver status. Objective - Abdomen: prior right upper quadrant surgical scar noted from remote cholecystectomy; exam elicited discomfort consistent with active abdominal process. - April CT abdomen: anterior perirenal retroperitoneal edema/fluid; side not specified. - 2023 MRCP: no significant abnormalities reported. - Recent EGD during hospitalization: no ulcers. - Laboratory review: glomerular filtration rate mildly decreased on multiple checks in 2023, possibly reflecting mild CKD; plan to update studies. Assessment & Plan Suspected diabetic gastroparesis with upper abdominal pain, early satiety, and nausea/vomiting, exacerbated by GLP-1 therapy: Clinical picture consistent with delayed gastric emptying; extensive prior work-up (including normal EGD) supports functional motility etiology. - Start metoclopramide, total 20 mg/day in four divided doses (breakfast, lunch, supper, bedtime), regardless of meals. Do not take on the day of the gastric emptying study. - Order gastric emptying study to reassess gastric motility. - Stop sucralfate (constipating and may impair absorption of other medications; not beneficial here). - Stop dicyclomine (limited benefit; can worsen constipation). - Continue omeprazole and famotidine. - Dietary guidance: for now, favor [id number], low-fat options (e.g., milkshakes, yogurt, eggs with minimal fat); avoid high-fat foods and heavy meats temporarily; advance as tolerated. - Education on rare adverse effects of metoclopramide (tremor, marked motor restlessness); instructed to discontinue if adverse effects occur and notify me. - Follow up in ~8 weeks or sooner if symptoms worsen. Constipation (opioid-associated) impacting GI symptoms: Variable frequency and consistency; partial response to MiraLAX. - Continue MiraLAX as currently used; discontinue Senna given lack of efficacy. - If inadequate control, consider prescription secretagogue (e.g., Linzess) at a future visit; avoid multiple simultaneous changes. Retroperitoneal edema on prior CT; rule out renal/pancreatic or other adjacent source: Prior CT showed anterior perirenal retroperitoneal edema without lateralization; etiology uncertain. - Order repeat CT abdomen to reassess for persistence or evolution of retroperitoneal findings. - Check updated labs including renal function. Fatty liver disease; evaluation updates: Ongoing assessment of liver health. - Order blood work including ferritin and additional serologies to exclude less common liver etiologies, as not previously documented. - Acetaminophen use permissible up to 2,000 mg/day maximum if needed for pain. Chronic kidney disease, mild (by prior eGFR trend): Likely multifactorial; ensure hydration. - Encourage increased fluid intake as tolerated. - Recheck renal function with ordered labs. Follow-up: Approximately 8 weeks, sooner for worsening pain, intractable vomiting, inability to tolerate PO, or adverse medication effects. Orders: Orders NM hepatobiliary w pharm Today K30 - Functional dyspepsia Hemoglobin A1c Today K30 - Functional dyspepsia Lipase Today K30 - Functional dyspepsia Alpha Fetoprotein Today K30 - Functional dyspepsia Ceruloplasmin Today K30 - Functional dyspepsia Ferritin Today K30 - Functional dyspepsia HIV Ab/Ag Today K30 - Functional dyspepsia Amylase Today K30 - Functional dyspepsia CT abdomen w IV con Today K30 - Functional dyspepsia, N28.89 - Other specified disorders of kidney and ureter Medications: New metoclopramide HCl (Reglan) 5 mg PO QIDACHS 120 tabs 3RF K30 - Functional dyspepsia Discontinued sennosides-docusate sodium 8.6-50 mg (Senokot-S) Discontinued Reason: Doctor's Order 1 tab-cap PO BEDTIME 90 days 90 tabs 0RF K59.03 - Drug induced constipation, T40.2X5A - Adverse effect of other opioids, initial encounter sucralfate (Carafate) Discontinued Reason: Doctor's Order 1 g PO BID 30 days 60 tabs 0RF Acid Reflux Coding Level of Care Code New Pt Level 3 (73157) Diagnoses Generalized abdominal pain R10.84 Abdominal location: generalized Tubular adenoma of colon D12.6 Other cirrhosis of liver K74.69 Hepatic cirrhosis type: other cirrhosis Chronic GERD K21.9
--- OUTSIDE RECORDS SUMMARY | 2025-06-09 17:50 | XMS_ITS | Patient Health Record ---
Author Organization [facility] Address [address] [place] [address] Care Team Providers Care Automobile Parker Name Role Phone Wilner GONSALES, Asma Primary Care Provider Tommy Almonte [phone] Allergies Allergen (clinical drug ingredient) Drug/Non Drug Allergy documented on EMR Reaction Allergy Type Onset Date Status naloxegol Movantik Unknown Drug Allergy Active Results Component Value Reference Range Flag Notes Complete Blood Count Auto Di ff Reviewed date:11/23/2024 06:53:58 PM Interpretation: Performing Lab:[facility], [address] [place] [address] Notes/Report: White Blood Count 8.3 4.8-10.8 X10*3/uL [...] NRBC Abs Auto 0.000 0.0-0.012 X10*3/uL N Prothrombin Time INR Reviewed date:11/23/2024 06:54:18 PM Interpretation: Performing Lab:[address] [address] Notes/Report: Prothrombin Time 10.7 10.9-12.4 SEC L [...] Time Reviewed date:11/23/2024 06:54:09 PM Interpretation: Performing Lab:[address] [address] Notes/Report: Partial Thromboplastin Time 32.4 26.0-36.8 SEC N For information regarding the monitoring of direct thrombin inhibitors, please refer to Pharmacy. Liver Panel Reviewed date:2024 10:00:04 PM Interpretation: Performing Lab:[address] [address] Notes/Report: Bilirubin Total 0.7 0.0-1.0 mg/dL N Bilirubin Direct 0.3 0.0-0.5 mg/dL N Aspartate Amino Transferase 110 5-31 U/L H Alanine Aminotransferase 189 0-31 U/L H Total Protein 8.2 6.5-8.0 g/dL H Albumin Level 4.1 3.5-5.0 g/dL N Alkaline Phosphatase 406 39-117 U/L H Pathology Reviewed date:04/29/2025 11:45:09 AM Interpretation: Performing Lab:[facility], [address] [place] [address] Notes/Report: Liver Panel Reviewed date:04/29/2025 11:45:28 AM Interpretation: Performing Lab:[facility], [address] [place] [address] Notes/Report: Bilirubin Total 0.4 0.0-1.0 mg/dL N Bilirubin Direct 0.2 0.0-0.5 mg/dL N Aspartate Amino Transferase 48 5-31 U/L H Alanine Aminotransferase 111 0-31 U/L H Total Protein 8.3 6.5-8.0 g/dL H Albumin Level 4.5 3.5-5.0 g/dL N Alkaline Phosphatase 378 39-117 U/L H Liver Fibrosis Pnl Reviewed date:11/30/2024 06:17:11 PM Interpretation: Performing Lab:[facility], [address] [place] [address] Notes/Report: Liver Fibrosis Score 0.35 Liver Fibrosis [...] a>0.62 and a<=1.00 : A3 (severe activity) PYL-Odabm-6-Macroglobulin 164 106-279 mg/dL FIB-Haptoglobin 170 43-212 mg/dL FIB-Apolipoprotein A1 227 101-198 mg/dL A FIB-Total Bilirubin 0.6 0.2-1.2 mg/dL FIB-GGT 1488 3-65 U/L A FIB-ALT 143 6-29 U/L A Reference ID [id number] Footnote SEE NOTE The reliability of results is dependent on compliance with the preanalytical and analytical conditions recommended by [employer]. The tests have to be deferred for: [...] The performance characteristics have been determined by [facility]. It has not been cleared or approved by the U.S. Food and Drug Administration. Performance characteristics refer to the analytical performance of the test. [employer], [employer], the associated logo, [facility] and all associated [employer] dong are the registered trademarks of [employer]. All third democrat dong - (R) and (TM) - are the property of their respective owners. (C) 5949-3605 [employer]. All rights reserved. THIS TEST WAS PERFORMED AT: [facility] [address] [place] [address] CRISTINA GIORDANO MD,PHD,PITA Complete Blood Count Auto Di ff Reviewed date:2024 09:08:47 AM Interpretation: Performing Lab:[facility], [address] [place] [address] Notes/Report: White Blood Count 12.3 4.8-10.8 X10*3/uL [...] NRBC Abs Auto 0.000 0.0-0.012 X10*3/uL N Prothrombin Time INR Reviewed date:2024 09:08:33 AM Interpretation: Performing Lab:[facility], [address] [place] [address] Notes/Report: Prothrombin Time 10.6 10.9-12.4 SEC L [...] Time Reviewed date:2024 09:08:25 AM Interpretation: Performing Lab:[facility], [address] [place] [address] Notes/Report: Partial Thromboplastin Time 32.7 26.0-36.8 SEC N For information regarding the monitoring of direct thrombin inhibitors, please refer to Pharmacy. Basic Metabolic Panel Reviewed date:2024 09:08:12 AM Interpretation: Performing Lab:[address] [address] Notes/Report: Sodium 140 135-145 mmol/L N Potassium [...] mg/dL H Calcium 10.0 8.4-10.2 mg/dL N Glucose, Whole Blood Reviewed date:2024 09:08:54 AM Interpretation: Performing Lab:[facility], [address] [place] [address] Notes/Report: Glucose, Whole Blood 123 60-115 mg/dL H VA TER #: [id number] Type and Screen Reviewed date:2024 09:08:19 AM Interpretation: Performing Lab:[facility], [address] [place] [phone] Notes/Report: Blood Type OP Antibody Screen NEGATIVE US biopsy liver Reviewed date:12/03/2024 12:41:31 AM Interpretation: Performing Lab: Notes/Report: [address] [address] Ultrasound Report Signed Patient: Syeda Doll MR#: [id number] : 1955 Acct:[id number] Age/Sex: 68 / F ADM Date: 11/25/24 Loc: [facility] Attending Dr: Tommy Roberts MD Ordering Physician: Tommy Roberts MD Date of Service: 11/25/24 Procedure(s): US biopsy liver Accession Number(s): [id number] cc: Tram Darby MD; Tommy Roberts MD [...] 11/25/24 1626 DD/ 1500 TD/TT: 11/25/24 1545 Head Operator: Reason For Referral No Information Medications Medication [...] Status Risk Notes Problem Colon cancer screening (592032813) Colon cancer screening (Z12.11) Active confirmed Problem Screening for malignant neoplasm of colon (551775654) Encounter for screening for malignant neoplasm of colon (Z12.11) Active confirmed Problem History of adenomatous polyp of colon (251554476) History of adenomatous polyp of colon (Z86.010) Active confirmed Problem Constipation (48840614) Constipation (K59.00) Active confirmed Problem Abdominal bloating (951318151) Abdominal bloating (R14.0) Active confirmed Problem Early satiety (103854507) Early satiety (R68.81) Active confirmed Problem Elevated liver enzymes level (203809932) Elevated liver function tests (R79.89) Active confirmed Problem Elevated liver enzymes level (185825536) Elevated liver enzymes (R74.8) Active confirmed Problem Fatty liver (952035828) Fatty liver (K76.0) Active confirmed Problem Gastroesophageal reflux disease (609849494) Gastroesophageal reflux disease, esophagitis presence not specified (K21.9) Active confirmed Problem Serum alpha-fetoprotein level elevated (244629024) Elevated alpha fetoprotein (R77.2) Active confirmed Problem Generalized abdominal pain (984389647) Abdominal pain, generalized (R10.84) Active confirmed Problem Alkaline phosphatase raised (475222050) Elevated alkaline phosphatase level (R74.8) Active confirmed Problem Irritable bowel syndrome (98506160) Irritable bowel syndrome, unspecified type (K58.9) Active confirmed Problem Right upper quadrant pain (742329018) Abdominal pain, RUQ (right upper quadrant) (R10.11) Active confirmed Problem Hepatic fibrosis (disorder) (33302720) Liver fibrosis (K74.00) Active confirmed Problem Abnormal findings diagnostic imaging of liver and biliary tract (303525265) Abnormal ultrasound of biliary tract (R93.2) Active confirmed Vital Signs Temperature 98.9 degrees Fahrenheit 04/14/2025 Blood pressure diastolic 01 mm Hg 04/14/2025 Height 63 in 04/14/2025 Blood pressure systolic 001 mm Hg 04/14/2025 Weight 159.4 lbs 04/14/2025 BMI 28.23 kg/m2 04/14/2025 Encounters Encounter Location Date Provider Diagnosis [facility] [address] [place] [address] 11/13/2024 Tommy Roberts Elevated liver enzymes R74.[address] [facility] [address] [place] [address] 04/14/2025 Tommy Roberts Liver fibrosis K74.00 ; Elevated liver function tests R79.89 ; Colon cancer screening Z12.11 and Fat[address] liver K[address].0 [facility] [address] [place] [address] 11/16/[address] [facility] [address] [place] [address] 12/02/2024 Tommy Roberts Elevated liver function tests [...] Name:Tommy Roberts , 10/13/2025 01:20:00 PM, [address], [address], [place], [address], Insurance Providers Payer Name Payer Address Payer Phone Subscriber Number Group Number Insured Name Patient Relationship to Insured Coverage Start Date Coverage End Date MEDICARE OF [place] [address] [place] [address] [id number] SYEDA DOLL Self - patient is the insured 0 MEDICAID OF [employer] [address] [place] [address] [id number] SYEDA DOLL Self - patient is the [...]
== END 2025-06-09 16:20 | disposition home or self-care (01) ==
LOC: HO.HGI 14:55
PROVIDERS: PCP Internal Medicine; Visit Provider Nurse Practitioner
DX: R10.84 Generalized abdominal pain (principal); D12.6 Benign neoplasm of colon, unspecified; K74.69 Other cirrhosis of liver; K21.9 Gastro-esophageal reflux disease without esophagitis
CPT/HCPCS: 99203

== ENCOUNTER → 2025-06-09 14:54 | Outpatient (BNVA) | payer MEDICARE, MEDICAID, SELFPAY | PROVIDERS: PCP Internal Medicine; Visit Provider Nurse Practitioner | DX: R10.84 Generalized abdominal pain (principal); Z86.0101 Personal history of adenomatous and serrated colon polyps; K74.69 Other cirrhosis of liver; K21.9 Gastro-esophageal reflux disease without esophagitis | CPT/HCPCS: 99202 ==

== ENCOUNTER 2025-06-16 11:08 | Outpatient (REF) | payer MEDICARE, MEDICAID, SELFPAY ==
--- NOTE | ~2025-06-16 | XR_ITS ---
EXAMINATION: XR KNEE, RIGHT CLINICAL INFORMATION: M25.561 - Pain in right knee COMPARISON: 01/23/2019 x-ray TECHNIQUE: Two views of the right knee. FINDINGS: No acute fracture or dislocation. Alignment is anatomic. Joint spaces are maintained. Small effusion. Small ossification posteriorly, seen on the lateral view, unchanged from previous, could represent a loose body. Superior patella enthesopathy. No abnormal soft tissue calcification. XR/XR knee RT 2V IMPRESSION: No acute osseous findings. Small effusion. Electronically signed by: Nabil Ruvalcaba MD 06/16/2025 03:23 PM SIS
[2025-06-16 13:43] LABS: Amylase 59 U/L (28-100); Lipase 16 U/L (8-78)
[2025-06-16 14:00] LABS: Ferritin 292 ng/mL (10-250)
--- OUTSIDE RECORDS SUMMARY | 2025-06-16 17:51 | XMS_ITS | Patient Health Record ---
Author Organization [facility] Address [address] [place] [address] Care Team Providers Care Personnel Security Specialist Name Role Phone Wilner GONSALES, Asma Primary Care Provider Tommy Almonte [phone] Allergies Allergen (clinical drug ingredient) Drug/Non Drug Allergy documented on EMR Reaction Allergy Type Onset Date Status naloxegol Movantik Unknown Drug Allergy Active Results Component Value Reference Range Flag Notes Complete Blood Count Auto Di ff Reviewed date:11/23/2024 06:53:58 PM Interpretation: Performing Lab:[facility], [address] [place] [address] Notes/Report: White Blood Count 8.3 4.8-10.8 X10*3/uL [...] Reviewed date:11/23/2024 06:54:18 PM Interpretation: Performing Lab:[address] [address] Notes/Report: Prothrombin Time 10.7 10.9-12.4 SEC L [...] Reviewed date:11/23/2024 06:54:09 PM Interpretation: Performing Lab:[address] [address] Notes/Report: Partial Thromboplastin Time 32.4 26.0-36.8 SEC N For information regarding the monitoring of direct thrombin inhibitors, please refer to Pharmacy. Liver Panel Reviewed date:2024 10:00:04 PM Interpretation: Performing Lab:[address] [address] Notes/Report: Bilirubin Total 0.7 0.0-1.0 mg/dL N Bilirubin Direct 0.3 0.0-0.5 mg/dL N Aspartate Amino Transferase 110 5-31 U/L H Alanine Aminotransferase 189 0-31 U/L H Total Protein 8.2 6.5-8.0 g/dL H Albumin Level 4.1 3.5-5.0 g/dL N Alkaline Phosphatase 406 39-117 U/L H Liver Fibrosis Pnl Reviewed date:11/30/2024 06:17:11 PM Interpretation: Performing Lab:[facility], [address] [place] [address] Notes/Report: Liver Fibrosis Score 0.35 Liver Fibrosis [...] a>0.62 and a<=1.00 : A3 (severe activity) AGP-Cvapr-1-Macroglobulin 164 106-279 mg/dL FIB-Haptoglobin 170 43-212 mg/dL FIB-Apolipoprotein A1 227 101-198 mg/dL A FIB-Total Bilirubin 0.6 0.2-1.2 mg/dL FIB-GGT 1488 3-65 U/L A FIB-ALT 143 6-29 U/L A Reference ID [id number] Footnote SEE NOTE The reliability of results [...] The performance characteristics have been determined by [facility]. It has not been cleared or approved by the U.S. Food and Drug Administration. Performance characteristics refer to the analytical performance of the test. [facility], [employer], the associated logo, [employer] and all associated [employer] dong are the registered trademarks of [employer]. All third democrat dong - (R) and (TM) - are the property of their respective owners. (C) 4943-7900 [employer]. All rights reserved. THIS TEST WAS PERFORMED AT: [facility] [place] [place] [address] [place] [address] CRISTINA GIORDANO MD,PHD,PITA Complete Blood Count Auto Di ff Reviewed date:2024 09:08:47 AM Interpretation: Performing Lab:[facility], [address] [place] [address] Notes/Report: White Blood Count 12.3 4.8-10.8 X10*3/uL [...] INR Reviewed date:2024 09:08:33 AM Interpretation: Performing Lab:[facility], [address] [place] [address] Notes/Report: Prothrombin Time 10.6 10.9-12.4 SEC L [...] Reviewed date:2024 09:08:25 AM Interpretation: Performing Lab:[address] [phone] Notes/Report: Partial Thromboplastin Time 32.7 26.0-36.8 SEC N For information regarding the monitoring of direct thrombin inhibitors, please refer to Pharmacy. Basic Metabolic Panel Reviewed date:2024 09:08:12 AM Interpretation: Performing Lab:[address] [address] Notes/Report: Sodium 140 135-145 mmol/L N Potassium [...] Blood Reviewed date:2024 09:08:54 AM Interpretation: Performing Lab:[address] [address] Notes/Report: Glucose, Whole Blood 123 60-115 mg/dL H ND TER #: [id number] Pathology Reviewed date:04/29/2025 11:45:09 AM Interpretation: Performing Lab:[address] [place] [address] Notes/Report: Type and Screen Reviewed date:2024 09:08:19 AM Interpretation: Performing Lab:[address] [address] Notes/Report: Blood Type OP Antibody Screen NEGATIVE US biopsy liver Reviewed date:12/03/2024 12:41:31 AM Interpretation: Performing Lab: Notes/Report: [address] [address] Ultrasound Report Signed Patient: Syeda Doll MR#: [id number] : 1955 Acct:[id number] Age/Sex: 68 / F ADM Date: 11/25/24 Loc: [facility] Attending Dr: Tommy Roberts MD Ordering Physician: Tommy Roberts MD Date of Service: 11/25/24 Procedure(s): US biopsy liver Accession Number(s): [id number] cc: Tram Darby MD; Tommy Roberts MD [...] 11/25/24 1626 DD/ 1500 TD/TT: 11/25/24 1545 Environmental Management Specialist: Liver Panel Reviewed date:04/29/2025 11:45:28 AM Interpretation: Performing Lab:[facility], [address] [place] [address] Notes/Report: Bilirubin Total 0.4 0.0-1.0 mg/dL N Bilirubin Direct 0.2 0.0-0.5 mg/dL N Aspartate Amino Transferase 48 5-31 U/L H Alanine Aminotransferase 111 0-31 U/L H Total Protein 8.3 6.5-8.0 g/dL H Albumin Level 4.5 3.5-5.0 g/dL N Alkaline Phosphatase 378 39-117 U/L H Reason For Referral No Information Medications Medication [...] Status Risk Notes Problem Colon cancer screening (315978042) Colon cancer screening (Z12.11) Active confirmed Problem Screening for malignant neoplasm of colon (461655109) Encounter for screening for malignant neoplasm of colon (Z12.11) Active confirmed Problem History of adenomatous polyp of colon (763169655) History of adenomatous polyp of colon (Z86.010) Active confirmed Problem Constipation (47582789) Constipation (K59.00) Active confirmed Problem Abdominal bloating (899181895) Abdominal bloating (R14.0) Active confirmed Problem Early satiety (786906350) Early satiety (R68.81) Active confirmed Problem Elevated liver enzymes level (012650124) Elevated liver function tests (R79.89) Active confirmed Problem Elevated liver enzymes level (240175666) Elevated liver enzymes (R74.8) Active confirmed Problem Fatty liver (923803120) Fatty liver (K76.0) Active confirmed Problem Gastroesophageal reflux disease (479666560) Gastroesophageal reflux disease, esophagitis presence not specified (K21.9) Active confirmed Problem Serum alpha-fetoprotein level elevated (063778295) Elevated alpha fetoprotein (R77.2) Active confirmed Problem Generalized abdominal pain (469868428) Abdominal pain, generalized (R10.84) Active confirmed Problem Alkaline phosphatase raised (981215957) Elevated alkaline phosphatase level (R74.8) Active confirmed Problem Irritable bowel syndrome (99310471) Irritable bowel syndrome, unspecified type (K58.9) Active confirmed Problem Right upper quadrant pain (179627058) Abdominal pain, RUQ (right upper quadrant) (R10.11) Active confirmed Problem Hepatic fibrosis (disorder) (67162932) Liver fibrosis (K74.00) Active confirmed Problem Abnormal findings diagnostic imaging of liver and biliary tract (549953281) Abnormal ultrasound of biliary tract (R93.2) Active confirmed Vital Signs Temperature 98.9 degrees Fahrenheit 04/14/2025 Blood pressure diastolic 01 mm Hg 04/14/2025 Height 63 in 04/14/2025 Blood pressure systolic 001 mm Hg 04/14/2025 Weight 159.4 lbs 04/14/2025 BMI 28.23 kg/m2 04/14/2025 Encounters Encounter Location Date Provider Diagnosis [facility] [address] [place] [phone] 11/13/2024 Tommy Roberts Elevated liver enzymes R74.8 and Fatty liver K76.0 [facility] [address] [place] [address] 04/14/2025 Tommy Roberts Liver fibrosis K74.00 ; Elevated liver function tests R79.89 ; Colon cancer screening Z12.11 and Fatty liver K76.0 [facility] [address] [place] [address] 11/16/2024 Tommy Roberts [facility] [address] [place] [address] 12/02/2024 Tommy Rboerts Elevated liver function tests R79.89 and Fatty [...] Name:Tommy Roberts , 10/13/2025 01:20:00 PM, [address], [address], [place], [address], Insurance Providers Payer Name Payer Address Payer Phone Subscriber Number Group Number Insured Name Patient Relationship to Insured Coverage Start Date Coverage End Date [place]ARE OF [place] [address] [place] [id number] SYEDA DOLL Self - patient is the insured 0 MEDICAID OF [employer] [address] [place] [address] [id number] SYEDA DOLL Self - patient is the insured Medical (General) History Medical History History ICD Code IDDM Hypertension Denies NH,CVA,Lung disease,renal disease Neg. colonoscopy in 2004 wit [...]
[2025-06-17 04:34] LABS: HIV Num 1 0.07 S/CO (0.00-0.99)
== END 2025-06-16 11:09 | disposition home or self-care (01) ==
LOC: HO.XRAY 11:08
PROVIDERS: Absent Provider Internal Medicine; PCP Internal Medicine; Visit Provider Nurse Practitioner
DX: M25.561 Pain in right knee (principal); K30 Functional dyspepsia; Z13.1 Encounter for screening for diabetes mellitus; Z11.4 Encounter for screening for human immunodeficiency virus [HIV]
CPT/HCPCS: 36415; 73560; 82105; 82150; 82390; 82728; 83036; 83690; 87389

== ENCOUNTER → 2025-06-16 11:12 | Outpatient (BNV) | payer MEDICARE, MEDICAID, SELFPAY | PROVIDERS: Absent Provider Internal Medicine; PCP Internal Medicine; Visit Provider Radiology Diagnostic Ultrasound | DX: M25.461 Effusion, right knee (principal) | CPT/HCPCS: 73560 ==

== ENCOUNTER 2025-06-23 10:44 | Outpatient (AMB) | payer MEDICARE, MEDICAID, SELFPAY ==
[2025-06-23 10:51] VITALS: BP 118/78; PULSE 100; O2SAT 98; BMI 26.6
--- NOTE | 2025-06-23 10:51 | A.OFFVIS_ITS ---
Vital Signs 06/23/25 10:51 Height 5 ft 3 in Weight 149 lb 14.629 oz BMI 26.6 BP 118/78 Blood Pressure Location Rt brachial Position Sitting Pulse 100 Pulse Source Pulse Oximeter Pulse Oximetry (%) 98 Oxygen Delivery Method Room Air Intake Visit Reasons: DM Intake Note: Patient presents today for a follow-up on for Type 2 Diabetes Mellitus: Last Diabetic eye exam was on: 08/27/2024, [facility] Last Podiatry exam was on: Patient does not see a Insurance Marketing Specialist Most recent HbA1c: 6.7%, 06/16/2025 Random Glucose: 200 mg/dL Appliance Installer Required: No Accompanied by: Self / Same As Patient Allergies duloxetine (From Cymbalta) Allergy (Intermediate, Verified 06/23/25 10:55) Gastrointestinal Upset gabapentin Allergy (Intermediate, Verified 06/23/25 10:55) Gastrointestinal Upset milnacipran (From Savella) Allergy (Intermediate, Verified 06/23/25 10:55) Gastrointestinal Upset naloxegol (Movantik) Allergy (Intermediate, Verified 06/23/25 10:55) Gastrointestinal Upset pregabalin (From Lyrica) Allergy (Intermediate, Verified 06/23/25 10:55) Gastrointestinal Upset HPI Comments Details: This is a 69 year old female presenting for diabetes follow up Medical history: HTN, COPD, liver fibrosis, chronic headaches Diagnosed with diabetes: Daughter is diabetic. No one else in the family Current diabetic medication - Novolog 10 units subcutaneous TID-not taking - Insulin glargine 34 units daily at night for diabetes-compliant - Gulshansus 3mg Previously on metformin-GI upset. Intolerant mounjaro - Labs: A1C today is 6.7% from 7.8% from 8.4 in November 2024 -She did not like CGM. Using accuchek, checking only fasting daily. Says generally under 120. -Reports infrequent lows. She drinks juice, has candy and rechecks Neuropathy: Denies Eye exam:Scheduled for oct On lisinopril Diabetic education:referred previously Tests and Diagnostics: - Liver biopsy in November showed focal minimal steatosis, fibrosis with septal bridging stage 3, and mild inflammatory activity grade 1. chest discomfort/palpitations-follows cardiology-undergone a comprehensive workup including echocardiogram, Holter and coronary CTA. ROS CONSTITUTIONAL: Denies weight loss, fever and chills. HEENT: Denies changes in vision and hearing. RESPIRATORY: Denies SOB and cough. CV: Denies palpitations and CP GI: Denies abdominal pain, nausea, vomiting and diarrhea. : Denies dysuria and urinary frequency. MSK: Denies new myalgia and joint pain. SKIN: Denies rash and pruritus. NEUROLOGICAL: Denies headache PSYCHIATRIC: Denies recent changes in mood. PHYSICAL EXAM: GENERAL: Alert and oriented x 3. NAD EYES: EOMI. Anicteric. HENT: Moist mucous membranes. No scleral icterus. No cervical lymphadenopathy. LUNGS: Clear to auscultation bilaterally. CARDIOVASCULAR: Regular rate and rhythm. No murmur. No JVD. ABDOMEN: Soft, non-tender +bs EXTREMITIES: No edema. Non-tender. +PT pulses SKIN: No rashes or lesions. Warm. NEUROLOGIC: No focal neurological deficits. CN II-XII grossly intact PSYCHIATRIC: Cooperative. Appropriate mood and affect [facility] Medical History Pain management Hospital discharge follow-up Right lumbar radiculitis Radiculitis of right cervical region Muscle spasm Arthrosis Open fracture of proximal phalanx of right little finger Post-COVID syndrome Foul smelling urine Epigastric burning sensation LFTs abnormal Liver fibrosis LFT elevation Acute sinusitis Right otitis media 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 2 diabetes Lipid disorder Elevated blood pressure reading Essential hypertension Medication side effect Medication management contract signed Diabetes 1.5, managed as type 1 PUD (peptic ulcer disease) Asthma Hx of irritable bowel syndrome Narcotic dependence Herniated nucleus pulposus, cervical Hypertension, essential Failed back syndrome DJD (degenerative joint disease) of thoracic spine Chronic GERD Surgical History History of liver biopsy Hx of laser iridotomy H/O cataract extraction History of cervical spinal surgery History of lumbar surgery History of esophagogastroduodenoscopy History of colonoscopy History of esophagogastroduodenoscopy History of hysterectomy with oophorectomy Hx of cholecystectomy Family History Father No problems noted. Mother Stomach cancer Social History Housing: House Are you a primary healthcare analyst to a significant other at home: No Do you presently have visiting nurse or other home services: No Alcohol intake: never Patient Tobacco Use Status: Never used Tobacco e-Cigarette/Vaping Use: Never Used Second Hand Smoke Exposure: No service: No Current occupational status: disabled Cognitive needs: No Hearing needs: No Vision needs: Yes Physical Exam Vital Signs: Last Vital Signs Pulse 100 06/23/25 10:51 BP 118/78 06/23/25 10:51 Pulse Ox 98 06/23/25 10:51 Oxygen Delivery Method Room Air 06/23/25 10:51 BMI result Body Mass Index 26.6 Results Reviewed Results Reviewed: Laboratory Last Values Glucose (Clinic) 200 mg/dL (60-115) H 06/23/25 10:56 Assessment & Plan Assessment & Plan (1) Diabetes 1.5, managed as type 1: Comment: taking lantus insulin Code(s): E13.9 - Other specified diabetes mellitus without complications Category: Medical (2) meterman (current) use of insulin: Code(s): Z79.4 - meterman (current) use of insulin Category: Medical Plan 69 year old female presenting for follow up Diabetes now with excellent control She can hold short acting insulin continue isaac carrasco Treat hypoglycemia by rules of 15s. Return in 3 months or sooner as needed Coding Level of Care Code Est Pt Level 4 (69772) Diagnoses Diabetes 1.5, managed as type 1 E13.9 half-way (current) use of insulin Z79.4
[2025-06-23 11:00] LABS: Glucose, Whole Blood 200 mg/dL (60-115)
--- OUTSIDE RECORDS SUMMARY | 2025-06-23 13:49 | XMS_ITS | Patient Health Record ---
Author Organization [facility] Address [address] [place] [address] Care Team Providers Care Electrical Power Station Technician Name Role Phone Wilner GONSALES, Asma Primary Care Provider Tommy Almonte [phone] Allergies Allergen (clinical drug ingredient) Drug/Non Drug Allergy documented on EMR Reaction Allergy Type Onset Date Status naloxegol Movantik Unknown Drug Allergy Active Results Component Value Reference Range Flag Notes Pathology Reviewed date:04/29/2025 11:45:09 AM Interpretation: Performing Lab:[facility], [address] [place] [phone] Notes/Report: Liver Fibrosis Pnl Reviewed date:11/30/2024 06:17:11 PM Interpretation: Performing Lab:[facility], [address] [place] [phone] Notes/Report: Liver Fibrosis Score 0.35 Liver Fibrosis [...] a>0.62 and a<=1.00 : A3 (severe activity) ZCN-[id number]-Macroglobulin 164 106-279 mg/dL FIB-Haptoglobin 170 43-212 mg/dL FIB-Apolipoprotein A1 227 101-198 mg/dL A FIB-Total Bilirubin 0.6 0.2-1.2 mg/dL FIB-GGT 1488 3-65 U/L A FIB-ALT 143 6-29 U/L A Reference ID [id number] Footnote SEE NOTE The reliability of results is dependent on compliance with the preanalytical and analytical conditions recommended by [employer]. The tests have to be deferred for: [...] The performance characteristics have been determined by [employer] [facility]. It has not been cleared or approved by the U.S. Food and Drug Administration. Performance characteristics refer to the analytical performance of the test. [employer], [employer], the associated logo, [employer] [place] and all associated [employer] dong are the registered trademarks of [employer]. All third democrat dong - (R) and (TM) - are the property of their respective owners. (C) [id number] [employer]. All rights reserved. THIS TEST WAS PERFORMED AT: [employer] [facility] [address] [place] [address] CRISTINA GIORDANO MD,PHD,PITA Partial Thromboplastin Time Reviewed date:11/23/2024 06:54:09 PM Interpretation: Performing Lab:[address] [phone] Notes/Report: Partial Thromboplastin Time 32.4 26.0-36.8 SEC N For information regarding the monitoring of direct thrombin inhibitors, please refer to Pharmacy. Prothrombin Time INR Reviewed date:11/23/2024 06:54:18 PM Interpretation: Performing Lab:[facility], [address] [place] [phone] Notes/Report: Prothrombin Time 10.7 10.9-12.4 SEC L [...] ff Reviewed date:11/23/2024 06:53:58 PM Interpretation: Performing Lab:[facility], [address] [place] [phone] Notes/Report: White Blood Count 8.3 4.8-10.8 X10*3/uL [...] NRBC Abs Auto 0.000 0.0-0.012 X10*3/uL N Liver Panel Reviewed date:2024 10:00:04 PM Interpretation: Performing Lab:[address] [phone] Notes/Report: Bilirubin Total 0.7 0.0-1.0 mg/dL N Bilirubin Direct 0.3 0.0-0.5 mg/dL N Aspartate Amino Transferase 110 5-31 U/L H Alanine Aminotransferase 189 0-31 U/L H Total Protein 8.2 6.5-8.0 g/dL H Albumin Level 4.1 3.5-5.0 g/dL N Alkaline Phosphatase 406 39-117 U/L H Complete Blood Count Auto Di ff Reviewed date:2024 09:08:47 AM Interpretation: Performing Lab:[address] [place] [address] Notes/Report: White Blood Count 12.3 4.8-10.8 X10*3/uL [...] INR Reviewed date:2024 09:08:33 AM Interpretation: Performing Lab:[facility], [address] [place] [phone] Notes/Report: Prothrombin Time 10.6 10.9-12.4 SEC L [...] Time Reviewed date:2024 09:08:25 AM Interpretation: Performing Lab:[facility], [address] [place] [phone] Notes/Report: Partial Thromboplastin Time 32.7 26.0-36.8 SEC N For information regarding the monitoring of direct thrombin inhibitors, please refer to Pharmacy. Basic Metabolic Panel Reviewed date:2024 09:08:12 AM Interpretation: Performing Lab:[facility], [address] [place] [phone] Notes/Report: Sodium 140 135-145 mmol/L N Potassium [...] Reviewed date:2024 09:08:54 AM Interpretation: Performing Lab:[address] [address] Notes/Report: Glucose, Whole Blood 123 60-115 mg/dL H KY TER #: [id number] Type and Screen Reviewed date:2024 09:08:19 AM Interpretation: Performing Lab:[facility], [address] [place] [phone] Notes/Report: Blood Type OP Antibody Screen NEGATIVE US biopsy liver Reviewed date:12/03/2024 12:41:31 AM Interpretation: Performing Lab: Notes/Report: [address] [address] Ultrasound Report Signed Patient: Syeda Doll MR#: [id number] : 1955 Acct:[id number] Age/Sex: 68 / F ADM Date: 11/25/24 Loc: .[facility] Attending Dr: Tommy Roberts MD Ordering Physician: Tommy Roberts MD Date of Service: 11/25/24 Procedure(s): US biopsy liver Accession Number(s): [id number] cc: Tram Darby MD; Tommy Roberts MD [...] 11/25/24 1626 DD/ 1500 TD/TT: 11/25/24 1545 Commercial Light Fixture Assembler: Liver Panel Reviewed date:04/29/2025 11:45:28 AM Interpretation: Performing Lab:[facility], [address] [place] [phone] Notes/Report: Bilirubin Total 0.4 0.0-1.0 mg/dL N [...] Status Risk Notes Problem Colon cancer screening (532249333) Colon cancer screening (Z12.11) Active confirmed Problem Screening for malignant neoplasm of colon (582383753) Encounter for screening for malignant neoplasm of colon (Z12.11) Active confirmed Problem History of adenomatous polyp of colon (264789481) History of adenomatous polyp of colon (Z86.010) Active confirmed Problem Constipation (13934589) Constipation (K59.00) Active confirmed Problem Abdominal bloating (210081075) Abdominal bloating (R14.0) Active confirmed Problem Early satiety (612436070) Early satiety (R68.81) Active confirmed Problem Elevated liver enzymes level (364964172) Elevated liver function tests (R79.89) Active confirmed Problem Elevated liver enzymes level (605424504) Elevated liver enzymes (R74.8) Active confirmed Problem Fatty liver (948867060) Fatty liver (K76.0) Active confirmed Problem Gastroesophageal reflux disease (739076495) Gastroesophageal reflux disease, esophagitis presence not specified (K21.9) Active confirmed Problem Serum alpha-fetoprotein level elevated (851611599) Elevated alpha fetoprotein (R77.2) Active confirmed Problem Generalized abdominal pain (503725624) Abdominal pain, generalized (R10.84) Active confirmed Problem Alkaline phosphatase raised (491029451) Elevated alkaline phosphatase level (R74.8) Active confirmed Problem Irritable bowel syndrome (48916640) Irritable bowel syndrome, unspecified type (K58.9) Active confirmed Problem Right upper quadrant pain (489068621) Abdominal pain, RUQ (right upper quadrant) (R10.11) Active confirmed Problem Hepatic fibrosis (disorder) (93956518) Liver fibrosis (K74.00) Active confirmed Problem Abnormal findings diagnostic imaging of liver and biliary tract (281170041) Abnormal ultrasound of biliary tract (R93.2) Active confirmed Vital Signs Temperature 98.9 degrees Fahrenheit 04/14/2025 Blood pressure diastolic 01 mm Hg 04/14/2025 Height 63 in 04/14/2025 Blood pressure systolic 001 mm Hg 04/14/2025 Weight 159.4 lbs 04/14/2025 BMI 28.23 kg/m2 04/14/2025 Encounters Encounter Location Date Provider Diagnosis [facility] [address] [place] [phone] 11/13/2024 Tommy Roberts Elevated liver enzymes R74.8 and Fatty liver K76.0 [facility] [address] [place] [phone] 04/14/2025 Tommy Roberts Liver fibrosis K74.00 ; Elevated liver function tests R79.89 ; Colon cancer screening Z12.11 and Fatty liver K76.0 [facility] [address] [place] [phone] 11/16/2024 Tommy Roberts [facility] [address] [place] [phone] 12/02/2024 Tommy Roberts Elevated liver function tests [...] Name:Tommy Roberts , 10/13/2025 01:20:00 PM, [address], [address], [place], [address], Insurance Providers Payer Name Payer Address Payer Phone Subscriber Number Group Number Insured Name Patient Relationship to Insured Coverage Start Date Coverage End Date MED[place]ARE OF [place] [address] [place] [id number] SYEDA DOLL Self - patient is the insured 0 MEDICAID OF [facility] [address] [place] [address] [id number] SYEDA DOLL Self - patient is the insured Medical (General) History Medical History History ICD Code IDDM Hypertension Denies DC,CVA,Lung disease,renal disease Neg. colonoscopy in 2004 wit [...]
== END 2025-06-23 11:19 | disposition home or self-care (01) ==
LOC: HO.ENCR 10:45
PROVIDERS: PCP Internal Medicine; Visit Provider Internal Medicine
DX: E13.9 Other specified diabetes mellitus without complications (principal); Z79.4 Long term (current) use of insulin

== ENCOUNTER → 2025-06-23 10:44 | Outpatient (BNVA) | payer MEDICARE, MEDICAID, SELFPAY | PROVIDERS: PCP Internal Medicine; Visit Provider Internal Medicine | DX: E13.9 Other specified diabetes mellitus without complications (principal); Z79.4 Long term (current) use of insulin | CPT/HCPCS: 82947; 99212 ==

== ENCOUNTER 2025-06-29 10:40 | Outpatient (AMB) | payer MEDICARE, MEDICAID, SELFPAY ==
[2025-06-29 10:42] VITALS: BP 112/64; PULSE 90; O2SAT 96; BMI 27.1
--- NOTE | 2025-06-29 10:42 | A.OFFPC_ITS ---
Vital Signs 06/29/25 10:42 Height 5 ft 3 in Weight 153 lb BMI 27.1 BP 112/64 Blood Pressure Location Lt brachial Position Sitting Pulse 90 Pulse Source Pulse Oximeter Pulse Oximetry (%) 96 Oxygen Delivery Method Room Air Intake Visit Reasons: 1 mo follow up Allergies duloxetine (From Cymbalta) Allergy (Intermediate, Verified 06/29/25 10:43) Gastrointestinal Upset gabapentin Allergy (Intermediate, Verified 06/29/25 10:43) Gastrointestinal Upset milnacipran (From Savella) Allergy (Intermediate, Verified 06/29/25 10:43) Gastrointestinal Upset naloxegol (Movantik) Allergy (Intermediate, Verified 06/29/25 10:43) Gastrointestinal Upset pregabalin (From Lyrica) Allergy (Intermediate, Verified 06/29/25 10:43) Gastrointestinal Upset Medication List - Last Reconciled 06/29/25 by Tram Darby MD Accu-Chek Guide test strips (blood sugar diagnostic) Test blood sugar 3 times per day NS albuterol sulfate 90 mcg/actuation 1 - 2 puffs PO Q4H PRN amlodipine 10 mg PO DAILY 90 days baclofen 10 mg PO BEDTIME blood-glucose meter (Accu-Chek Guide Me Glucose Meter) test blood sugar three times per day famotidine 40 mg PO BEDTIME fentanyl 50 mcg/hr 1 patch transdermal Q48H 30 days FreeStyle Lite Strips (blood sugar diagnostic) patient to check blood sugar 3 times daily NS insulin aspart U-100 (Novolog U-100 Insulin aspart) See Protocol units subcut TIDAC insulin glargine U-300 conc (Toujeo SoloStar U-300 Insulin) 34 units (0.1133 mL) subcut DAILY 90 days lancets (Accu-Chek Softclix Lancets) Test blood sugar 3 times per day latanoprost 0.005% 1 drp ophthalmic (eye) BEDTIME lisinopril 40 mg PO DAILY 90 days metoclopramide HCl (Reglan) 5 mg PO QIDACHS omeprazole 40 mg PO DAILY ondansetron HCl 4 mg PO ONCE PRN 30 days oxycodone 5 mg PO DAILY PRN pen needle, diabetic qd pen needle, diabetic qd pen needle, diabetic qd semaglutide (Rybelsus) 3 mg PO DAILY 30 days Tobacco use date assessed: 04/30/25 Fall risk assessment: No Falls in past year ( ) Last assessed Fall Risk: 06/29/25 Dental Screening Dental Screen Date: 04/30/25 HPI HPI Comments History of Present Illness Details History of Present Illness The patient is a 69 year old female presenting for a follow-up visit for chronic condition management. Type 2 Diabetes Mellitus: - The patient's most recent hemoglobin A 1c was 6.7. - Her current regimen includes 34 units of long-acting insulin and a sliding scale for insulin. - She was started on oral semaglutide ta blets, which she obtains as samples from her daughter, an EARLY CHILDHOOD TEACHER, because her insurance did not approve the medication. - The insurance company wants her to try an injectable medication first. Failed Back Syndrome: - The patient is on a fentanyl 50 mcg pa tch for failed back syndrome. - She uses oxycodone only as needed for severe pain to minimize stress on her liver. Gastrointestinal and Liver Disease: - The patient reports her stomach has be en feeling much better. - She takes famotidine and needs a refil l. - She is under the care of a gastroenter ologist for elevated liver enzymes and elevated alpha-fetoprotein. - A liver biopsy showed mild fibrosis. Hypertension: - The patient's blood pressure is well-c ontrolled, with a recent reading of 112/64 mmHg. Medical History: - Type 2 Diabetes Mellitus - Failed Back Syndrome - Chronic Liver Disease with elevated li jacque enzymes, elevated fetoprotein, and mild fibrosis - Hypertension, controlled PFS Medical History Pain management Hospital discharge follow-up Right lumbar radiculitis Radiculitis of right cervical region Muscle spasm Arthrosis Open fracture of proximal phalanx of right little finger Post-COVID syndrome Foul smelling urine Epigastric burning sensation LFTs abnormal Liver fibrosis LFT elevation Acute sinusitis Right otitis media 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 2 diabetes Lipid disorder Elevated blood pressure reading Essential hypertension Medication side effect Medication management contract signed Diabetes 1.5, managed as type 1 PUD (peptic ulcer disease) Asthma Hx of irritable bowel syndrome Narcotic dependence Herniated nucleus pulposus, cervical Hypertension, essential Failed back syndrome DJD (degenerative joint disease) of thoracic spine Chronic GERD Surgical History History of liver biopsy Hx of laser iridotomy H/O cataract extraction History of cervical spinal surgery History of lumbar surgery History of esophagogastroduodenoscopy History of colonoscopy History of esophagogastroduodenoscopy History of hysterectomy with oophorectomy Hx of cholecystectomy Family History Father No problems noted. Mother Stomach cancer Social History Housing: House Are you a primary residential care facility manager to a significant other at home: No Do you presently have visiting nurse or other home services: No Alcohol intake: never Patient Tobacco Use Status: Never used Tobacco e-Cigarette/Vaping Use: Never Used Second Hand Smoke Exposure: No service: No Current occupational status: disabled Cognitive needs: No Hearing needs: No Vision needs: Yes Questionnaire Thrive Questionnaire Date Thrive assessed: 09/30/24 I am a: Patient SACHIN-7 AMB Questionnaire SACHIN-7 Date SACHIN - 7 assessed: 01/29/25 Source: Developed by Drs. Tommy Graham, Marnie Ford, Sebastien Vaughn and colleagues, with an educational mayito from [employer]. Review of Systems Narrative Review of Systems - General: No fever no chills - Neurological: No headaches no dizziness - Ear nose throat: No sore throat no hearing difficulty no ear pain - Cardiovascular: No syncope, no chest pain, no palpitations - Gastrointestinal: No nausea vomiting or diarrhea Physical exam (Primary Care) Vital Signs: Last Vital Signs Pulse 90 06/29/25 10:42 BP 112/64 06/29/25 10:42 Pulse Ox 96 06/29/25 10:42 Oxygen Delivery Method Room Air 06/29/25 10:42 BMI result Body Mass Index 27.1 Tobacco/Smoking Status: Tobacco use Status Tobacco use date assessed 04/30/25 06/29/25 10:47 Patient Tobacco Use Status Never used Tobacco 06/29/25 10:47 e-Cigarette/Vaping Use Never Used 06/29/25 10:47 Thrive Assessment: Date of Thrive Assessment Date Thrive assessed 09/30/24 06/29/25 10:47 Narrative Physical Exam - General: No acute distress - HEENT: No acute findings - Neck: Supple - Respiratory system: Able to talk in full sentences, no audible wheeze - Cardiovascular: S1-S2 regular in rate and rhythm - Gastrointestinal: No pain - Extremities: No new findings - FORMS ANALYSIS MANAGER: Alert awake oriented x3 motor intact - Skin: Normal turgor Coding Level of Care Code Est Pt Level 4 (92455) Diagnoses Hypertension, essential I10 Diabetes 1.5, managed as type 1 E13.9 Failed back syndrome M96.1 HNP (herniated nucleus pulposus), lumbar M51.26 Pain management R52 Narcotic dependence F11.20 Assessment & Plan Assessment & Plan (1) Hypertension, essential: Code(s): I10 - Essential (primary) hypertension Category: Medical (2) Diabetes 1.5, managed as type 1: Comment: taking lantus insulin Code(s): E13.9 - Other specified diabetes mellitus without complications Category: Medical (3) Failed back syndrome: Comment: uses fentanyl patch & oxycodone Code(s): M96.1 - Postlaminectomy syndrome, not elsewhere classified Category: Medical (4) HNP (herniated nucleus pulposus), lumbar: Code(s): M51.26 - Other intervertebral disc displacement, lumbar region Category: Medical (5) Pain management: Code(s): R52 - Pain, unspecified Category: Medical (6) Narcotic dependence: Code(s): F11.20 - Opioid dependence, uncomplicated Category: Medical Plan Problem List - Type 2 Diabetes Mellitus - Failed Back Syndrome - Chronic Liver Disease - Overweight - Hypertension Plan - A message will be sent to the patient's assistant merchandiser to request a refill for famotidine. - The patient will continue her current fentanyl patch dosage, which will be re- evaluated in the future as she continues to lose weight. - Continue current diabetes management as per endo - The patient may send a portal message if she remembers any other medication needs. Medications: Refilled fentanyl 50 mcg/hr 1 patch transdermal Q48H 15 ea 0RF 30 days F11.20 - Opioid dependence, uncomplicated, M50.20 - Other cervical disc displacement, unspecified cervical region, M96.1 - Postlaminectomy syndrome, not elsewhere classified, R52 - Pain, unspecified
--- OUTSIDE RECORDS SUMMARY | 2025-06-29 11:59 | XMS_ITS | Patient Health Record ---
Author Organization [facility] Address [address] [place] [address] Care Team Providers Care Photographic Editor Name Role Phone Wilner GONSALES, Asma Primary Care Provider Tommy Almonte [phone] Allergies Allergen (clinical drug ingredient) Drug/Non Drug Allergy documented on EMR Reaction Allergy Type Onset Date Status naloxegol Movantik Unknown Drug Allergy Active Results Component Value Reference Range Flag Notes Complete Blood Count Auto Di ff Reviewed date:11/23/2024 06:53:58 PM Interpretation: Performing Lab:[facility], [address] [place] [phone] Notes/Report: White Blood Count 8.3 4.8-10.8 X10*3/uL [...] INR Reviewed date:11/23/2024 06:54:18 PM Interpretation: Performing Lab:[address] [address] Notes/Report: Prothrombin Time 10.7 10.9-12.4 SEC L [...] Time Reviewed date:11/23/2024 06:54:09 PM Interpretation: Performing Lab:[address] [address] Notes/Report: Partial Thromboplastin Time 32.4 26.0-36.8 SEC N For information regarding the monitoring of direct thrombin inhibitors, please refer to Pharmacy. Liver Panel Reviewed date:2024 10:00:04 PM Interpretation: Performing Lab:[address] [address] Notes/Report: Bilirubin Total 0.7 0.0-1.0 mg/dL N Bilirubin Direct 0.3 0.0-0.5 mg/dL N Aspartate Amino Transferase 110 5-31 U/L H Alanine Aminotransferase 189 0-31 U/L H Total Protein 8.2 6.5-8.0 g/dL H Albumin Level 4.1 3.5-5.0 g/dL N Alkaline Phosphatase 406 39-117 U/L H Liver Fibrosis Pnl Reviewed date:11/30/2024 06:17:11 PM Interpretation: Performing Lab:[facility], [address] [place] [phone] Notes/Report: Liver Fibrosis Score 0.35 Liver Fibrosis [...] a>0.62 and a<=1.00 : A3 (severe activity) XJY-Ppsvo-3-Macroglobulin 164 106-279 mg/dL FIB-Haptoglobin 170 43-212 mg/dL FIB-Apolipoprotein A1 227 101-198 mg/dL A FIB-Total Bilirubin 0.6 0.2-1.2 mg/dL FIB-GGT 1488 3-65 U/L A FIB-ALT 143 6-29 U/L A Reference ID [id number] Footnote SEE NOTE The reliability of results [...] The performance characteristics have been determined by [facility]. It has not been cleared or approved by the U.S. Food and Drug Administration. Performance characteristics refer to the analytical performance of the test. [employer], [employer], the associated logo, [employer] and all associated [employer] dong are the registered trademarks of [employer]. All third libertarian dong - (R) and (TM) - are the property of their respective owners. (C) 5881-5783 [employer]. All rights reserved. THIS TEST WAS PERFORMED AT: [employer] [facility] [address] [place] [address] CRISTINA GIORDANO MD,PHD,PITA Complete Blood Count Auto Di ff Reviewed date:2024 09:08:47 AM Interpretation: Performing Lab:[facility], [address] [place] [phone] Notes/Report: White Blood Count 12.3 4.8-10.8 X10*3/uL [...] INR Reviewed date:2024 09:08:33 AM Interpretation: Performing Lab:[facility], [address] [place] [phone] Notes/Report: Prothrombin Time 10.6 10.9-12.4 SEC L [...] Time Reviewed date:2024 09:08:25 AM Interpretation: Performing Lab:[address] [address] Notes/Report: Partial Thromboplastin Time 32.7 26.0-36.8 SEC N For information regarding the monitoring of direct thrombin inhibitors, please refer to Pharmacy. Basic Metabolic Panel Reviewed date:2024 09:08:12 AM Interpretation: Performing Lab:[address] [address] Notes/Report: Sodium 140 135-145 mmol/L N Potassium [...] Blood Reviewed date:2024 09:08:54 AM Interpretation: Performing Lab:[address] [phone] Notes/Report: Glucose, Whole Blood 123 60-115 mg/dL H LA TER #: [id number] Pathology Reviewed date:04/29/2025 11:45:09 AM Interpretation: Performing Lab:[address] [place] [address] Notes/Report: Type and Screen Reviewed date:2024 09:08:19 AM Interpretation: Performing Lab:[address] [address] Notes/Report: Blood Type OP Antibody Screen NEGATIVE US biopsy liver Reviewed date:12/03/2024 12:41:31 AM Interpretation: Performing Lab: Notes/Report: [address] [address] Ultrasound Report Signed Patient: Syeda Doll MR#: [id number] : 1955 Acct:[id number] Age/Sex: 68 / F ADM Date: 11/25/24 Loc: .[facility] Attending Dr: Tommy Roberts MD Ordering Physician: Tommy Roberts MD Date of Service: 11/25/24 Procedure(s): US biopsy liver Accession Number(s): [id number] cc: Tram Darby MD; Tommy Roberts MD [...] 11/25/24 1626 DD/ 1500 TD/TT: 11/25/24 1545 [employer]: Liver Panel Reviewed date:04/29/2025 11:45:28 AM Interpretation: Performing Lab:[facility], [address] [place] [phone] Notes/Report: Bilirubin Total 0.4 0.0-1.0 mg/dL N [...] Status Risk Notes Problem Colon cancer screening (903860854) Colon cancer screening (Z12.11) Active confirmed Problem Screening for malignant neoplasm of colon (004501752) Encounter for screening for malignant neoplasm of colon (Z12.11) Active confirmed Problem History of adenomatous polyp of colon (099479971) History of adenomatous polyp of colon (Z86.010) Active confirmed Problem Constipation (41724506) Constipation (K59.00) Active confirmed Problem Abdominal bloating (727316752) Abdominal bloating (R14.0) Active confirmed Problem Early satiety (356161506) Early satiety (R68.81) Active confirmed Problem Elevated liver enzymes level (246687377) Elevated liver function tests (R79.89) Active confirmed Problem Elevated liver enzymes level (293314185) Elevated liver enzymes (R74.8) Active confirmed Problem Fatty liver (876205119) Fatty liver (K76.0) Active confirmed Problem Gastroesophageal reflux disease (016429755) Gastroesophageal reflux disease, esophagitis presence not specified (K21.9) Active confirmed Problem Serum alpha-fetoprotein level elevated (385942038) Elevated alpha fetoprotein (R77.2) Active confirmed Problem Generalized abdominal pain (956327308) Abdominal pain, generalized (R10.84) Active confirmed Problem Alkaline phosphatase raised (042841564) Elevated alkaline phosphatase level (R74.8) Active confirmed Problem Irritable bowel syndrome (02650425) Irritable bowel syndrome, unspecified type (K58.9) Active confirmed Problem Right upper quadrant pain (535574131) Abdominal pain, RUQ (right upper quadrant) (R10.11) Active confirmed Problem Hepatic fibrosis (disorder) (31189376) Liver fibrosis (K74.00) Active confirmed Problem Abnormal findings diagnostic imaging of liver and biliary tract (515900528) Abnormal ultrasound of biliary tract (R93.2) Active confirmed Vital Signs Temperature 98.9 degrees Fahrenheit 04/14/2025 Blood pressure diastolic 01 mm Hg 04/14/2025 Height 63 in 04/14/2025 Blood pressure systolic 001 mm Hg 04/14/2025 Weight 159.4 lbs 04/14/2025 BMI 28.23 kg/m2 04/14/2025 Encounters Encounter Location Date Provider Diagnosis [facility] [address] [place] [phone] 11/13/2024 Tommy Roberts Elevated liver enzymes R74.8 and Fatty liver K76.0 [facility] [address] [place] [phone] 04/14/2025 Tommy Roberts Liver fibrosis K74.00 ; Elevated liver function tests R79.89 ; Colon cancer screening Z12.11 and Fatty liver K76.0 [facility] [address] [place] [phone] 11/16/2024 Tommy Roberts [facility] [address] [place] [phone] 12/02/2024 Tommy Roberts Elevated liver function tests [...] Name:Tommy Roberts , 10/13/2025 01:20:00 PM, [address], [address], [place], [address], Insurance Providers Payer Name Payer Address Payer Phone Subscriber Number Group Number Insured Name Patient Relationship to Insured Coverage Start Date Coverage End Date [place] [address] [place] [id number] SYEDA DOLL Self - patient is the insured 0 MEDICAID OF [place] [address] [place] [address] [id number] SYEDA DOLL Self - patient is the insured Medical (General) History Medical History History ICD Code IDDM Hypertension Denies OK,CVA,Lung disease,renal disease Neg. colonoscopy in 2004 wit [...]
== END 2025-06-29 11:09 | disposition home or self-care (01) ==
LOC: HO.HMCC 10:41
PROVIDERS: PCP Internal Medicine; Visit Provider Internal Medicine
DX: I10 Essential (primary) hypertension (principal); E13.9 Other specified diabetes mellitus without complications; M96.1 Postlaminectomy syndrome, not elsewhere classified; M51.26 Other intervertebral disc displacement, lumbar region; R52 Pain, unspecified; F11.20 Opioid dependence, uncomplicated

== ENCOUNTER → 2025-06-29 10:40 | Outpatient (BNVA) | payer MEDICARE, MEDICAID, SELFPAY | PROVIDERS: PCP Internal Medicine; Visit Provider Internal Medicine | DX: I10 Essential (primary) hypertension (principal); E13.9 Other specified diabetes mellitus without complications; M96.1 Postlaminectomy syndrome, not elsewhere classified; M51.26 Other intervertebral disc displacement, lumbar region; F11.20 Opioid dependence, uncomplicated; G89.29 Other chronic pain; Z79.899 Other long term (current) drug therapy | CPT/HCPCS: 99212 ==